=== PATIENT | male | born 1980 | race Caucasian/White ===

== ENCOUNTER 2018-08-20 12:53 | Emergency (ER) | payer MEDICAID, SELFPAY ==
[2018-08-20 13:00] VITALS: BP 185/104; PULSE 84; RESP 16; TEMP 36.6; O2SAT 97
--- NOTE | 2018-08-20 13:19 | DI.RAD_ITS ---
SYMPTOM/DIAGNOSIS: PAIN, CLICK WITH MOVEMENT, FELL PLAYING VOLLEYBALL LEFT KNEE: Three views were obtained. No bony abnormality is seen.
--- NOTE | 2018-08-20 14:06 | W.ED.GENAD ---
Discharge Plan Disposition Patient Disposition: HOME Condition: Good Discharge Details Chief Complaint: Orthopedic Clinical Impression: Acute pain of left knee, Kapoor cyst Primary Care Provider: Tomi Dao ED Provider: Win Gleason Home Meds and New Rx's Prescriptions: No Action ascorbic acid (vitamin C) [C-500] 500 MG tablet,chewable 500 mg PO DAILY RF: 0 methadone 5 MG/5 ML solution 100 mg PO DAILY RF: 0 hydroxyzine HCl 25 MG tablet 25 mg PO BID 30 Days Qty: 60 RF: 5 Nicotine [Nicoderm Cq] 1 EACH PATCH.TD24 14 mg Transdermal DAILY 30 Days Qty: 30 RF: 1 Nicotine [Nicoderm Cq] 1 EACH PATCH.TD24 7 mg Transdermal DAILY 30 Days Qty: 30 RF: 0 omega-3 fatty acids-fish oil 1 EACH capsule 1 ea PO DAILY RF: 0 sildenafil (antihypertensive) 20 MG tablet 2.5 tab PO qd prn 30 Days Qty: 60 RF: 5 disulfiram 250 mg tablet 250 mg PO DAILY Qty: 90 RF: 4 clonidine HCl 0.1 mg tablet 0.1 mg PO BID Qty: 180 RF: 4 lisdexamfetamine [Vyvanse] 50 mg capsule 50 mg PO DAILY Qty: 30 RF: 0 milk thistle 150 MG capsule RF: 0 cholecalciferol (vitamin D3) [Vitamin D3] 1,000 UNIT capsule RF: 0 multivitamin [Daily Multiple] 1 EACH tablet 1 ea PO DAILY RF: 0 Discharge Instructions Instructions: Knee Pain (ED), RICE Therapy (ED) Additional Instructions: Please continue using Tylenol, Motrin, ice, your knee brace. Avoid any significant stress or strain. Knee. Please follow-up with the orthopedic surgeon. The office will contact you. If you notice any worsening of your symptoms, or any new symptoms such as vomiting, diarrhea, fever, chills, shortness of breath, chest pain, numbness, weakness, or fainting , please return immediately to the emergency department for reevaluation. Please follow up with your primary care provider as soon as possible for reassessment and reevaluation. As always, it was a pleasure participating in your medical care today. Stand Alone Forms: Work Release Referrals: Tomi Dao [Primary Care Provider] - Medical Decision Making This is a pleasant 37-year-old male who presents for evaluation of left knee pain. It initially started 30 days ago when he was playing volleyball, then got worse again yesterday when he did a significant amount of bending and straining at his work. Physical exam demonstrates no significant abnormalities except for a mild click with flexion and extension. No ligamentous laxity. He does demonstrate mild tenderness over the area of where I feel may be is very small Kapoor's cyst. No other significant abnormalities. Normal neurovascular exam x-ray was performed and demonstrates no significant fracture abnormality. As the patient's symptoms were notably improved at home with NSAIDs, Blade wrap, knee brace, and ice I feel that he most likely has either a very mild meniscal injury or a small ligamentous tear causing the clicking and symptomatology. We will recommend continuation of this, as well as Orth O follow-up. He has no needs for crutches at this time and feels very stable on his feet. We discussed red flags for which to return the patient understands. I have extensively reviewed the treatment plan and discharge instructions with the patient. I have addressed all patient concerns at this time. The patient was made aware of what symptoms to monitor for that would warrant a return to the emergency department. Discussed the plan with the patient, they demonstrate verbal understanding and agreement with our assessment and plan at this time. HPI General Date/Time Provider Initiated Documentation: 08/20/18 13:19. HPI Narrative: This is a 37-year-old male with no significant past medical history who presents today for evaluation of left knee pain. The patient states that 30 days ago he was playing volleyball and came down hard on his left knee. With notable pain in the knee after this, continues to perform normal activities. Eventually better with Tylenol, ibuprofen, ice, and Blade wrap and left knee brace. 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 Since then he has had mild pain in his left knee. He has noticed some clicking. Symptoms are worse with movement, improved by rest, ice, elevation, and NSAIDs as well as his home brace. He denies any warmth, history of STDs, urethral discharge, IV or illicit drug use, or other significant trauma. He denies any other significant abnormalities. He denies any numbness, tingling or weakness. He has no other complaints at this time. Related Data Home Medications Medication Instructions Recorded Confirmed multivitamin [Daily Multiple] 1 ea PO DAILY 05/08/17 08/20/18 cholecalciferol (vitamin D3) 08/19/17 [Vitamin D3] milk thistle 08/19/17 08/19/17 ascorbic acid (vitamin C) [C-500] 500 mg PO DAILY tab.chew 09/05/17 08/20/18 methadone 100 mg PO DAILY ml 09/05/17 08/20/18 hydroxyzine HCl 25 mg PO BID 30 Days #60 tab-cap 10/03/17 08/20/18 omega-3 fatty acids-fish oil 1 ea PO DAILY 12/29/17 08/20/18 sildenafil (antihypertensive) 2.5 tab PO qd prn 30 Days #60 01/14/18 08/20/18 tab-cap clonidine HCl 0.1 mg tablet 0.1 mg PO BID #180 tab 07/08/18 08/20/18 disulfiram 250 mg tablet 250 mg PO DAILY #90 tab 07/08/18 08/20/18 lisdexamfetamine 50 mg capsule 50 mg PO DAILY #30 cap 07/31/18 08/20/18 Previous Rx's Medication Instructions Recorded hydroxyzine HCl 25 mg PO BID 30 Days #60 tab-cap 10/03/17 sildenafil (antihypertensive) 2.5 tab PO qd prn 30 Days #60 01/14/18 tab-cap clonidine HCl 0.1 mg tablet 0.1 mg PO BID #180 tab 07/08/18 disulfiram 250 mg tablet 250 mg PO DAILY #90 tab 07/08/18 lisdexamfetamine 50 mg capsule 50 mg PO DAILY #30 cap 07/31/18 Allergies Allergy/AdvReac Type Severity Reaction Status Date / Time No Known Allergies Allergy Unverified 08/20/18 13:03 General Stated Complaint: Orthopedic PACO: 4 Review of Systems Review of Systems All systems reviewed & are unremarkable except as noted in HPI and below PFSH Family History Mother Diabetes Father Diabetes Essential hypertension Brother No problems noted. Brother No problems noted. Grandfather No problems noted. Grandfather No problems noted. Grandmother No problems noted. Grandmother No problems noted. Daughter No problems noted. Social History Smoking/Tobacco Use Status: Current every day Exam Narrative Exam Narrative: 1.Const: Well-nourished, Well-developed, appearing stated age 2.Eyes: PERRL, no conjunctival injection, and symmetrical lids. 3.ENT: Atraumatic external nose and ears. Moist MM. Neck: Symmetric, trachea midline, No thyromegaly. 4.CVS: +S1/S2, No murmurs or gallops. Peripheral pulses 2+ and equal in all extremities. Brisk capillary refill in all extremities. 5.RESP: Unlabored respiratory effort. Clear to auscultation bilaterally. No wheezes rales or rhonchi 6.GI: Soft, Nontender/Nondistended, No hepatosplenomegaly. No guarding or rebound. 7.MSK: Normocephalic/Atraumatic, Extremities w/o deformity or significantTtp No cyanosis or clubbing. Patient demonstrates no ligamentous laxity for varus and valgus stressing, no significant worsening of pain for this. No decreased ACL strength, or PCL strength. No signs of lag. Kate's test demonstrated no worsening of his symptoms. Mild clicking with this noted with flexion extension at the knee. No other significant abnormalities. The patient walks well without a significant limp. No focal tenderness over the patella, tibial plateau, minimal swelling over the posterior popliteal area suggestive of a mild Kapoor's cyst. 8.Skin: Warm, Dry. No rashes or lesions. 9.Neuro: clinical trial manager II-XII grossly intact. Sensation grossly intact, no focal neurologic deficits. 10.Psych: (AAO) x3. Appropriate mood and affect Course Vital Signs Temperature 36.6 C 08/20/18 13:00 Pulse 84 08/20/18 13:00 Respiratory Rate 16 08/20/18 13:00 Blood Pressure 185/104 H 08/20/18 13:00 Pulse Oximetry 97 08/20/18 13:00 Temperature 36.6 C 08/20/18 13:00 Temperature Source Skin 08/20/18 13:00 Pulse 84 08/20/18 13:00 Respiratory Rate 16 08/20/18 13:00 Respiratory Effort 08/20/18 13:00 Blood Pressure 185/104 H 08/20/18 13:00 Blood Pressure Position Sitting 08/20/18 13:00 Pulse Oximetry 97 08/20/18 13:00 Oxygen Delivery Method Room Air 08/20/18 13:00 Oxygen Flow Rate 0 10/25/18 13:00 Pain Level 6 08/20/18 13:00
== END 2018-08-20 14:40 | disposition home or self-care (01) ==
PROVIDERS: Emergency Provider Student in an Organized Health Care Education/Training Program; PCP Family Medicine
DX: M25.562 Pain in left knee (principal); M71.22 Synovial cyst of popliteal space [Baker], left knee; X50.1XXA Overexertion from prolonged static or awkward postures, initial encounter; I10 Essential (primary) hypertension
CPT/HCPCS: 73562; 99283; 81003

== ENCOUNTER 2019-07-09 17:40 | Emergency (ER) | payer MEDICAID, SELFPAY ==
[2019-07-09 17:45] VITALS: BP 161/101; PULSE 71; RESP 16; TEMP 36.7; O2SAT 97
--- NOTE | 2019-07-09 18:21 | NUR.NOTE ---
Nursing Note: Pt states only taking methadone from [facility] daily for medication. No other meds taken by pt at this time 'for a while'.
[2019-07-09 18:22] LABS: Abs Immature Grans 0.01 k/cumm (0.0-0.09); Absolute Basophil Count 0.01 k/cumm (0.0-0.2); Absolute Eosinophil Count 0.14 k/cumm (0.0-0.7); Absolute Lymphocyte Count 3.57 k/cumm (1.2-3.4); Absolute Monocyte Count 0.37 k/cumm (0.11-0.7); Absolute Neutrophil Count 2.89 k/cumm (1.2-6.7); Basophils % 0.1; HCT 44.6 % (40.0-50.0); HGB 15.1 g/dL (13.5-17.5); Immature Grans % 0.1; Lymphocytes % 51.1; Mean Corp. HGB Concentration 33.9 g/dL (32.0-36.0); Mean Corpuscular Volume 97.4 fL (80-95); Mean Platelet Volume 9.3 fL (8.0-11.0); Monocytes % 5.3; Neutrophils % 41.4; Platelet Count 242 x1000/uL (130-400); RBC 4.58 m/cumm (4.50-6.00); RBC Distribution Width 12.7 % (11.8-14.1); White Blood Cell Count 6.99 k/cumm (4.4-10.8)
--- NOTE | 2019-07-09 18:24 | DI.RAD_ITS ---
SYMPTOM/DIAGNOSIS: SEIZURE, H/O ETOH PA AND LATERAL CHEST: The lungs are well expanded and free of infiltrate. There is no pleural effusion. The cardiovascular structures are intact. Note is made of a mild dextrorotoscoliosis. SUMMARY: No acute findings are demonstrated.
--- NOTE | 2019-07-09 18:31 | ED.GENADUL_ITS ---
Discharge Plan Disposition Patient Disposition: HOME Condition: Improving Discharge Details Chief Complaint: ETOHWithdr Clinical Impression: Alcohol withdrawal Primary Care Provider: Tomi Dao ED Provider: Luly Shafer Home Meds and New Rx's Prescriptions: New chlordiazepoxide HCl 25 mg capsule See Rx Instructions .ROUTE .COMPLEX PRN (Reason: alcohol withdrawal) Qty: 10 RF: 0 Continued hydroxyzine HCl 25 mg tablet 25 mg PO BID PRN (Reason: anxiety) Qty: 60 RF: 2 Vyvanse 50 mg capsule 50 mg PO DAILY MDD 50mg Qty: 30 RF: 0 Vyvanse 50 mg capsule 50 mg PO QAM MDD 50mg Qty: 30 RF: 0 ascorbic acid (vitamin C) [C-500] 500 MG tablet,chewable 500 mg PO DAILY RF: 0 methadone 5 MG/5 ML solution 100 mg PO DAILY RF: 0 omega-3 fatty acids-fish oil 1 EACH capsule 1 ea PO DAILY RF: 0 sildenafil (antihypertensive) 20 MG tablet 2.5 tab PO qd prn 30 Days Qty: 60 RF: 5 disulfiram 250 mg tablet 250 mg PO DAILY Qty: 90 RF: 4 clonidine HCl 0.1 mg tablet 0.1 mg PO BID Qty: 180 RF: 4 nicotine [Nicoderm CQ] 14 mg/24 hr patch 24 hour 1 patch TD Q24H Qty: 21 RF: 1 nicotine [Nicoderm CQ] 7 mg/24 hr patch 24 hour 1 patch TD Q24H Qty: 14 RF: 0 cholecalciferol (vitamin D3) [Vitamin D3] 1,000 UNIT capsule RF: 0 multivitamin [Daily Multiple] 1 EACH tablet 1 ea PO DAILY RF: 0 No Action Vyvanse 50 mg capsule 50 mg PO QAM MDD 50mg Qty: 30 RF: 0 Discharge Instructions Instructions: Alcohol Withdrawal (ED) Additional Instructions: Take the Librium as needed and directed for alcohol withdrawal symptoms. Refrain from drinking any alcohol while taking the Librium. Follow-up with Patricia on Friday regarding placement in the detox program. Return to the emergency department if you develop any worsening or new concerning symptoms. Discharge Data Discharge Date/Time-TO BE ENTERED AT DEPARTURE: 07/09/19 20:23 Discharge Physician: Luly Shafer Medical Decision Making 38yo M w/ a h/o chronic daily alcohol abuse who presents to the ED for medical clearance for alcohol detox at [facility]. CIWA 9 initially per nurse. Blood pressure 165/101, remainder vitals within normal limits. Patient appeared mildly shaky and anxious but otherwise no acute complaints. Dose of Ativan ordered. Screening labs ordered on arrival and unremarkable. EKG notes a rate of 63, sinus with T wave inversion in lead III but no acute ST wave ischemic changes. Patient complaining of significant anxiety and was given a dose of Ativan. His CIWA was 29. He was requesting to go home. Patient was given another dose of Ativan and observed and his CIWA was 1. He has a normal heart rate and blood pressure. He appears relaxed and comfortable. His dad will be driving him home. He states he was mainly here for medical clearance for [facility]. Patient does not appear in acute alcohol withdrawal at this time and suspect his anxiety was driving most of his symptoms earlier. He was given a printout of his lab work. We will send home with a prescription for Librium. He is advised to not drink alcohol while taking this. He is advised to return here with any worsening or new concerning symptoms. Medical Records Medical records reviewed: Yes I reviewed the patient's medical records. Lab Data Lab results reviewed: Yes I reviewed the patient's lab results. Labs: Laboratory Tests Range/Units 07/09/19 07/09/19 07/09/19 18:16 18:16 19:03 WBC (4.4-10.8) k/cumm 6.99 RBC (4.50-6.00) m/cumm 4.58 Hgb (13.5-17.5) g/dL 15.1 Hct (40.0-50.0) % 44.6 MCV (80-95) fL 97.4 H MCH (27.0-33.0) pg 33.0 MCHC (32.0-36.0) g/dL 33.9 RDW (11.8-14.1) % 12.7 Plt Count (130-400) x1000/uL 242 MPV (8.0-11.0) fL 9.3 Immature Gran % 0.1 Neutrophils % 41.4 Lymphocytes % 51.1 Monocytes % 5.3 Eosinophils % 2.0 Basophils % 0.1 Absolute Neutrophils (1.2-6.7) k/cumm 2.89 Absolute Lymphocytes (1.2-3.4) k/cumm 3.57 H Absolute Monocytes (0.11-0.7) k/cumm 0.37 Absolute Eosinophils (0.0-0.7) k/cumm 0.14 Absolute Basophils (0.0-0.2) k/cumm 0.01 Sodium (136-145) mmol/L 141 Potassium (3.5-5.1) mmol/L 3.9 Chloride (98-107) mmol/L 103 Carbon Dioxide (21.0-32.0) mmol/L 28.9 Anion Gap (3-11) mmol/L 9.1 BUN (7-18) mg/dL 19 H Creatinine (0.70-1.30) mg/dL 0.95 Estimated GFR/1.73 m2 (mL/min/1.73m2) >= 60.00 Glucose (70-100) mg/dL 91 Calcium (8.5-10.1) mg/dL 8.9 Magnesium (1.8-2.4) mg/dL 2.0 Total Bilirubin (0.2-1.0) mg/dL 0.3 AST (15-37) U/L 41 H ALT (16-63) U/L 60 Alkaline Phosphatase (46-116) U/L 90 Troponin I (0.00-0.06) ng/mL < 0.05 Total Protein (6.4-8.2) g/dL 7.8 Albumin (3.4-5.0) g/dL 4.2 Urine Color (Yellow) Straw Urine Clarity (Clear) Clear Urine pH (5-8) 6.0 Ur Specific Cedar (1.005-1.025) 1.010 Urine Protein (Negative) mg/dL Negative Urine Ketones (Negative) mg/dL Negative Urine Blood (Negative) Trace-intact H Urine Nitrite (Negative) Negative Urine Bilirubin (Negative) Negative Urine Urobilinogen (Up TO 0.2) EU/dL 0.2 Ur Leukocyte Esterase (Negative) Negative Urine RBC (0-2) 0-2 Urine WBC (0-5) HPF Negative Ur Epithelial Cells (Negative) HPF Negative Urine Crystals (Negative) HPF Negative Urine Bacteria (Negative) HPF Negative Urine Casts (Negative) LPF Negative Urine Mucus (Negative) Negative Ur Culture Indicated? No Urine Glucose (Negative) mg/dL Negative Urine Opiates Screen (Negative) Urine Methadone Screen (Negative) Ur Barbiturates Screen (Negative) Ur Tricyclics Screen (Negative) Ur Amphetamines Screen (Negative) U Benzodiazepines Scrn (Negative) Urine Cocaine Screen (Negative) Ur THC Screen (Negative) Range/Units 07/09/19 19:03 WBC (4.4-10.8) k/cumm RBC (4.50-6.00) m/cumm Hgb (13.5-17.5) g/dL Hct (40.0-50.0) % MCV (80-95) fL MCH (27.0-33.0) pg MCHC (32.0-36.0) g/dL RDW (11.8-14.1) % Plt Count (130-400) x1000/uL MPV (8.0-11.0) fL Immature Gran % Neutrophils % Lymphocytes % Monocytes % Eosinophils % Basophils % Absolute Neutrophils (1.2-6.7) k/cumm Absolute Lymphocytes (1.2-3.4) k/cumm Absolute Monocytes (0.11-0.7) k/cumm Absolute Eosinophils (0.0-0.7) k/cumm Absolute Basophils (0.0-0.2) k/cumm Sodium (136-145) mmol/L Potassium (3.5-5.1) mmol/L Chloride (98-107) mmol/L Carbon Dioxide (21.0-32.0) mmol/L Anion Gap (3-11) mmol/L BUN (7-18) mg/dL Creatinine (0.70-1.30) mg/dL Estimated GFR/1.73 m2 (mL/min/1.73m2) Glucose (70-100) mg/dL Calcium (8.5-10.1) mg/dL Magnesium (1.8-2.4) mg/dL Total Bilirubin (0.2-1.0) mg/dL AST (15-37) U/L ALT (16-63) U/L Alkaline Phosphatase (46-116) U/L Troponin I (0.00-0.06) ng/mL Total Protein (6.4-8.2) g/dL Albumin (3.4-5.0) g/dL Urine Color (Yellow) Urine Clarity (Clear) Urine pH (5-8) Ur Specific Cedar (1.005-1.025) Urine Protein (Negative) mg/dL Urine Ketones (Negative) mg/dL Urine Blood (Negative) Urine Nitrite (Negative) Urine Bilirubin (Negative) Urine Urobilinogen (Up TO 0.2) EU/dL Ur Leukocyte Esterase (Negative) Urine RBC (0-2) Urine WBC (0-5) HPF Ur Epithelial Cells (Negative) HPF Urine Crystals (Negative) HPF Urine Bacteria (Negative) HPF Urine Casts (Negative) LPF Urine Mucus (Negative) Ur Culture Indicated? Urine Glucose (Negative) mg/dL Urine Opiates Screen (Negative) Negative Urine Methadone Screen (Negative) Positive Ur Barbiturates Screen (Negative) Negative Ur Tricyclics Screen (Negative) Negative Ur Amphetamines Screen (Negative) Negative U Benzodiazepines Scrn (Negative) Negative Urine Cocaine Screen (Negative) Negative Ur THC Screen (Negative) Negative HPI General Mode of arrival: ambulatory . Date/Time Provider Initiated Documentation: 07/09/19 17:58 . Limitations to Documentation: no limitations . Information obtained by: patient . HPI Narrative: Patient is a 38yo M w/ a h/o chronic daily alcohol abuse who presents to the ED for medical clearance for alcohol detox at [facility]. Patient states he plans on starting detox at [facility] on Friday and is here for medical clearance. He states he detoxed himself at home last week and believes that he had one seizure which lasted approximately 45 seconds after he had not had a drink for 2-3 days. Patient states his last drink was this morning and that he drank 4 beers. He states he drinks approximately 1/5 of liquor daily. He states he has been tapering down the amount of alcohol he has been drinking for the past few days. He denies any recent seizure over the past few days. He denies headache, blurry vision, chest pain, shortness of breath, abdominal pain, nausea, vomiting, hallucinations. Related Data Home Medications Medication Instructions Recorded Confirmed multivitamin [Daily Multiple] 1 ea PO DAILY 05/08/17 03/09/19 cholecalciferol (vitamin D3) 08/19/17 03/09/19 [Vitamin D3] ascorbic acid (vitamin C) [C-500] 500 mg PO DAILY tab.chew 09/05/17 03/09/19 methadone 100 mg PO DAILY ml 09/05/17 07/09/19 omega-3 fatty acids-fish oil 1 ea PO DAILY 12/29/17 03/09/19 sildenafil (antihypertensive) 2.5 tab PO qd prn 30 Days #60 01/14/18 03/09/19 tab-cap disulfiram 250 mg tablet 250 mg PO DAILY #90 tab 07/08/18 03/09/19 clonidine HCl 0.1 mg tablet 0.1 mg PO BID #180 tab 01/13/19 03/09/19 hydroxyzine HCl 25 mg tablet 25 mg PO BID PRN #60 tab-cap 03/09/19 03/09/19 lisdexamfetamine 50 mg capsule 50 mg PO DAILY #30 cap MDD 50mg 03/09/19 03/09/19 lisdexamfetamine 50 mg capsule 50 mg PO QAM #30 cap MDD 50mg 03/09/19 03/09/19 nicotine 14 mg/24 hr daily 1 patch TD Q24H #21 each 06/04/19 transdermal patch nicotine 7 mg/24 hr daily 1 patch TD Q24H #14 each 06/04/19 transdermal patch chlordiazepoxide HCl See Rx Instructions .ROUTE 07/09/19 .COMPLEX PRN #10 cap lisdexamfetamine 50 mg capsule 50 mg PO QAM #30 cap MDD 50mg 07/14/19 Previous Rx's Medication Instructions Recorded sildenafil (antihypertensive) 2.5 tab PO qd prn 30 Days #60 01/14/18 tab-cap disulfiram 250 mg tablet 250 mg PO DAILY #90 tab 07/08/18 clonidine HCl 0.1 mg tablet 0.1 mg PO BID #180 tab 01/13/19 hydroxyzine HCl 25 mg tablet 25 mg PO BID PRN #60 tab-cap 03/09/19 lisdexamfetamine 50 mg capsule 50 mg PO DAILY #30 cap MDD 50mg 03/09/19 lisdexamfetamine 50 mg capsule 50 mg PO QAM #30 cap MDD 50mg 03/09/19 nicotine 14 mg/24 hr daily 1 patch TD Q24H #21 each 06/04/19 transdermal patch nicotine 7 mg/24 hr daily 1 patch TD Q24H #14 each 06/04/19 transdermal patch chlordiazepoxide HCl See Rx Instructions .ROUTE 07/09/19 .COMPLEX PRN #10 cap lisdexamfetamine 50 mg capsule 50 mg PO QAM #30 cap MDD 50mg 07/14/19 Allergies Allergy/AdvReac Type Severity Reaction Status Date / Time No Known Allergies Allergy Verified 07/09/19 17:51 General Stated Complaint: ETOHWithdr PACO: 2 Review of Systems Review of Systems ROS Unobtainable: All systems reviewed & are unremarkable except as noted in HPI and below Constitutional Constitutional: Reports as per HPI, Denies chills and Denies fever(s) Eyes Eyes: Denies blurry vision ENT Ears, Nose, Mouth, and Throat: Denies dizziness, Denies sore throat and Denies throat swelling Cardiovascular Cardiovascular: Denies chest pain and Denies dyspnea Respiratory Respiratory: Denies cough and Denies dyspnea Gastrointestinal Gastrointestinal: Denies abdominal pain, Denies diarrhea and Denies vomiting Genitourinary Genitourinary: Denies hematuria and Denies dysuria Musculoskeletal Musculoskeletal: Denies back pain and Denies numbness Integumentary/Breasts Skin/Breast: Denies lesions and Denies rash Neurologic Neurologic: Denies dizziness, Denies focal weakness and Denies numbness Allergic/Immunologic Allergic/Immunologic: Denies throat swelling [facility] Medical History ADD (attention deficit disorder) (Inactive) Anxiety (Inactive 09/05/17) Hypertension (Inactive) Methadone dependence (Inactive 04/01/18) Family History Mother Diabetes Father Diabetes Essential hypertension Brother No problems noted. Brother No problems noted. Grandfather No problems noted. Grandfather No problems noted. Grandmother No problems noted. Grandmother No problems noted. Daughter No problems noted. Social History Smoking/Tobacco Use Status: Current every day Tobacco Type: cigarettes Alcohol Intake: current Alcohol Intake frequency: 3 or more drinks per day Alcohol type: hard liquor Drug use: Current Sobriety Substance use type: does not use Details: States drinks 1-2 pints vodka daily. Do you feel safe at home: Yes Do you feel safe in your relationship?: Yes Exam Const General: cooperative, healthy appearing and anxious (mild) [facility] Head: normal to inspection Face and sinus: normal facial exam Eyes General: appearance normal, both eyes and all related structures Pupils: PERRL EOM: EOM intact bilaterally Neck Neck: normal visual inspection and No submandibular swelling Lymphatic: no lymphadenopathy noted Chest Chest: normal inspection of the chest and no tenderness Resp Effort & Inspection: normal respiratory effort and able to speak in complete sentences Auscultation: clear to auscultation bilaterally Cardio Rate: regular rate Rhythm: regular rhythm GI Inspection: normal to inspection Palpation: soft, not firm, not rigid and nontender Auscultation: normal bowel sounds Skin General skin exam: no rashes or lesions noted Neuro General: alert, awake and oriented x3 Cognition: normal cognition Speech: speech normal Motor: muscle tone normal throughout Sensory Exam: no sensory deficits noted Extrem General: normal to inspection, full ROM, normal capillary refill, no calf tenderness bilaterally and no edema Psych Appearance: grossly normal Mental Status: mental status grossly normal Speech and Movement: speech and movement normal Affect: anxious affect Course Vital Signs Vital signs: Vital Signs Temperature 98.1 F 07/09/19 17:45 Pulse 71 07/09/19 17:45 Respiratory Rate 16 07/09/19 17:45 Blood Pressure 161/101 H 07/09/19 17:45 Pulse Oximetry 97 07/09/19 17:45 Temperature 98.1 F 07/09/19 17:45 Temperature Source Temporal Artery Scan 07/09/19 17:45 Pulse 71 07/09/19 17:45 Respiratory Rate 16 07/09/19 17:45 Respiratory Effort Non-Labored 07/09/19 18:16 Respiratory Pattern Normal 07/09/19 18:16 Blood Pressure 161/101 H 07/09/19 17:45 Blood Pressure Position Sitting 07/09/19 17:45 Pulse Oximetry 97 07/09/19 17:45 Oxygen Delivery Method Room Air 07/09/19 17:45 Oxygen Flow Rate 0 07/09/19 17:45 Pain Level 0 07/09/19 17:45 Lab/Test Results Lab/Test Results: Laboratory Tests Range/Units 07/09/19 18:16 WBC (4.4-10.8) k/cumm 6.99 RBC (4.50-6.00) m/cumm 4.58 Hgb (13.5-17.5) g/dL 15.1 Hct (40.0-50.0) % 44.6 MCV (80-95) fL 97.4 H MCH (27.0-33.0) pg 33.0 MCHC (32.0-36.0) g/dL 33.9 RDW (11.8-14.1) % 12.7 Plt Count (130-400) x1000/uL 242 MPV (8.0-11.0) fL 9.3 Immature Gran % 0.1 Neutrophils % 41.4 Lymphocytes % 51.1 Monocytes % 5.3 Eosinophils % 2.0 Basophils % 0.1 Absolute Neutrophils (1.2-6.7) k/cumm 2.89 Absolute Lymphocytes (1.2-3.4) k/cumm 3.57 H Absolute Monocytes (0.11-0.7) k/cumm 0.37 Absolute Eosinophils (0.0-0.7) k/cumm 0.14 Absolute Basophils (0.0-0.2) k/cumm 0.01
[2019-07-09 18:36] LABS: ALT 60 U/L (16-63); AST 41 U/L (15-37); Albumin 4.2 g/dL (3.4-5.0); Alkaline Phosphatase 90 U/L (46-116); Anion Gap 9.1 mmol/L (3-11); BUN 19 mg/dL (7-18); Bilirubin, Total 0.3 mg/dL (0.2-1.0); CO2 28.9 mmol/L (21.0-32.0); CREATININE 0.95 mg/dL (0.70-1.30); Calcium 8.9 mg/dL (8.5-10.1); Chloride 103 mmol/L (98-107); Glucose 91 mg/dL (70-100); Potassium 3.9 mmol/L (3.5-5.1); Sodium 141 mmol/L (136-145); Total Protein 7.8 g/dL (6.4-8.2)
--- NOTE | 2019-07-09 18:38 | NUR.NOTE ---
pt to xray Nursing Note:
[2019-07-09 18:39] LABS: Troponin I < 0.05 ng/mL (0.00-0.06)
[2019-07-09] MEDS: LORazepam 2 MG/ML VIAL ×2 (18:57→20:06)
--- NOTE | 2019-07-09 18:57 | DI.VRAD_ITS ---
EXAM: XR Chest, 2 Views EXAM DATE/TIME: 07/09/2019 6:26 PM CLINICAL HISTORY: 38 years old, male; Condition or disease; Other: Seizure; Patient HX: [id number], h/o ETOH; Additional info: R/O acute disease TECHNIQUE: Imaging protocol: XR of the chest Views: 2 views. COMPARISON: No relevant prior studies available. FINDINGS: Lungs: Unremarkable. No consolidation. Pleural space: Unremarkable. No pleural effusion. No pneumothorax. Heart/Mediastinum: Unremarkable. No cardiomegaly. Bones/joints: Mild scoliosis, thoracolumbar spine. IMPRESSION: No acute findings. Lungs are clear. Dictated and Authenticated by: Fadi Villagomez MD. Ordering:STEVEN Mauricio MD
[2019-07-09 19:08] LABS: Bilirubin Negative (Negative); Blood Trace-intact (Negative); Clarity Clear (Clear); Glucose Negative (Negative); Ketones Negative (Negative); Leukocyte Esterase Negative (Negative); Nitrite Negative (Negative); Urobilinogen 0.2 EU/dL (Up TO 0.2)
[2019-07-09 19:19] LABS: Bacteria Negative HPF (Negative); C & S Indicated? No; Casts Negative LPF (Negative); Crystals Negative HPF (Negative); Epithelial Cells Negative HPF (Negative); Mucus Negative (Negative); RBC 0-2 (0-2); WBC Negative HPF (0-5)
[2019-07-09 19:21] LABS: *AMPHETAMINES SCREEN URINE Negative (Negative); *BARBITURATES SCREEN URINE Negative (Negative); *BENZODIAZEPINES SCREEN URINE Negative (Negative); Cannabinoids THC Negative (Negative); Cocaine Screen,Urine Negative (Negative); METHADONE URINE SCREEN POSITIVE (Negative); OPIATES URINE SCREEN Negative (Negative)
[2019-07-09 19:28] LABS: Tricyclic Antidepressants Negative (Negative)
[2019-07-09 20:19] VITALS: BP 142/86; PULSE 80; RESP 16; O2SAT 95
--- NOTE | 2019-07-09 20:20 | NUR.NOTE ---
Nursing Note: Pt alert/oriented/ambulatory. discharged to home. Instructions reviewed. understanding verbalized. medication education discussed. VSS IV REMOVED
[2019-07-09] MEDS: LORazepam 1 MG TAB (20:21)
== END 2019-07-09 20:23 | disposition home or self-care (01) ==
PROVIDERS: Emergency Provider Physician Assistant; PCP Family Medicine
DX: F10.230 Alcohol dependence with withdrawal, uncomplicated (principal); F41.9 Anxiety disorder, unspecified; F11.20 Opioid dependence, uncomplicated; I10 Essential (primary) hypertension
CPT/HCPCS: 36415; 80053; 80307; 93005; 96374; 99285; 71046; 81003; 81015; 83735; 84484; 85025; 93010; J2060

== ENCOUNTER 2019-08-12 15:05 | Emergency (ER) | payer MEDICAID, SELFPAY ==
[2019-08-12 15:12] VITALS: BP 146/102; PULSE 77; RESP 16; TEMP 36.7; O2SAT 93
--- NOTE | 2019-08-12 15:28 | ED.GENADUL_ITS ---
Discharge Plan Disposition Patient Disposition: HOME Condition: Stable Discharge Details Chief Complaint: ETOHWithdr Clinical Impression: Alcohol abuse Primary Care Provider: Tomi Dao ED Provider: Torrey Tse Kelly Meds and New Rx's Prescriptions: Continued hydroxyzine HCl 25 mg tablet 25 mg PO BID PRN (Reason: anxiety) Qty: 60 RF: 2 Vyvanse 50 mg capsule 50 mg PO QAM MDD 50mg Qty: 30 RF: 0 ascorbic acid (vitamin C) [C-500] 500 MG tablet,chewable 500 mg PO DAILY RF: 0 methadone 5 MG/5 ML solution 100 mg PO DAILY RF: 0 omega-3 fatty acids-fish oil 1 EACH capsule 1 ea PO DAILY RF: 0 sildenafil (antihypertensive) 20 MG tablet 2.5 tab PO qd prn 30 Days Qty: 60 RF: 5 disulfiram 250 mg tablet 250 mg PO DAILY Qty: 90 RF: 4 clonidine HCl 0.1 mg tablet 0.1 mg PO BID Qty: 180 RF: 4 nicotine [Nicoderm CQ] 14 mg/24 hr patch 24 hour 1 patch TD Q24H Qty: 21 RF: 1 nicotine [Nicoderm CQ] 7 mg/24 hr patch 24 hour 1 patch TD Q24H Qty: 14 RF: 0 Vyvanse 50 mg capsule 50 mg PO QAM MDD 50mg Qty: 30 RF: 0 cholecalciferol (vitamin D3) [Vitamin D3] 1,000 UNIT capsule RF: 0 chlordiazepoxide HCl 25 mg capsule See Rx Instructions .ROUTE .COMPLEX PRN (Reason: alcohol withdrawal) Qty: 10 RF: 0 multivitamin [Daily Multiple] 1 EACH tablet 1 ea PO DAILY RF: 0 Discharge Instructions Instructions: Alcohol Dependence (ED) Additional Instructions: continue to call detox centers for help with your alcoholism if you develop high fevers, difficulty breathing, persistent vomit or feel more ill return to the emergency department for reevaluation Medical Decision Making 38 yo male with hx of alcohol abuse comes in with request for medical clearance to go to [facility]. He was sen here a month ago and did end up going to [facility] for detox and was off alcohol for 2 weeks but a in the family caused him to relapse and he wants to go back to [facility]. He feels anxious otherwise denies fevers, headaches, vomit. He also notes that he twisted his left knee a day ago at the gym, no direct trauma. He is in no distress on exam with clear speech, no tremors and no abdominal tenderness speaking in full sentences. His left knee has full rom and is bering weight without probles and has mild medial joint line pain without laxity. given lack of direct trauma, full rom, and bearing weight doubt fx and do not feel xray indicated and given no laxity and no swelling doubt significant ligamentous tear. Advised RICE and f/u with pcp or ortho if still in pain in 2 weeks. Will order screening labs and give dose of librium as he states this helped a month ago pt's labs showetoh of 190, otherwise no acute findings, remains stable with stable exam. He is medically cleared to go to any detox center of his choosing. Will dc with librium Differential Diagnosis Differential Diagnosis: alcohol abuse, alcoholishm, detox Lab Data Lab results reviewed: Yes I reviewed the patient's lab results. HPI General Mode of arrival: ambulatory . Date/Time Provider Initiated Documentation: 08/12/19 15:10 . Limitations to Documentation: no limitations . Information obtained by: patient . History of Present Illness 38 year old M presents to the emergency department with the chief complaint of wants to go to detox center, and it has been constant. No relieving factors improve symptom(s), No exacerbating factors reported . Patient did receive the following treatments prior to arrival, none Related Data Home Medications Medication Instructions Recorded Confirmed multivitamin [Daily Multiple] 1 ea PO DAILY 05/08/17 08/12/19 cholecalciferol (vitamin D3) 08/19/17 03/09/19 [Vitamin D3] ascorbic acid (vitamin C) [C-500] 500 mg PO DAILY tab.chew 09/05/17 08/12/19 methadone 100 mg PO DAILY ml 09/05/17 08/12/19 omega-3 fatty acids-fish oil 1 ea PO DAILY 12/29/17 08/12/19 sildenafil (antihypertensive) 2.5 tab PO qd prn 30 Days #60 01/14/18 08/12/19 tab-cap disulfiram 250 mg tablet 250 mg PO DAILY #90 tab 07/08/18 08/12/19 clonidine HCl 0.1 mg tablet 0.1 mg PO BID #180 tab 01/13/19 08/12/19 hydroxyzine HCl 25 mg tablet 25 mg PO BID PRN #60 tab-cap 03/09/19 08/12/19 lisdexamfetamine 50 mg capsule 50 mg PO QAM #30 cap MDD 50mg 03/09/19 08/12/19 nicotine 14 mg/24 hr daily 1 patch TD Q24H #21 each 06/04/19 08/12/19 transdermal patch nicotine 7 mg/24 hr daily 1 patch TD Q24H #14 each 06/04/19 08/12/19 transdermal patch lisdexamfetamine 50 mg capsule 50 mg PO QAM #30 cap MDD 50mg 07/14/19 08/12/19 chlordiazepoxide HCl See Rx Instructions .ROUTE 08/12/19 .COMPLEX PRN #10 cap Previous Rx's Medication Instructions Recorded sildenafil (antihypertensive) 2.5 tab PO qd prn 30 Days #60 01/14/18 tab-cap disulfiram 250 mg tablet 250 mg PO DAILY #90 tab 07/08/18 clonidine HCl 0.1 mg tablet 0.1 mg PO BID #180 tab 01/13/19 hydroxyzine HCl 25 mg tablet 25 mg PO BID PRN #60 tab-cap 03/09/19 lisdexamfetamine 50 mg capsule 50 mg PO QAM #30 cap MDD 50mg 03/09/19 nicotine 14 mg/24 hr daily 1 patch TD Q24H #21 each 06/04/19 transdermal patch nicotine 7 mg/24 hr daily 1 patch TD Q24H #14 each 06/04/19 transdermal patch lisdexamfetamine 50 mg capsule 50 mg PO QAM #30 cap MDD 50mg 07/14/19 chlordiazepoxide HCl See Rx Instructions .ROUTE 08/12/19 .COMPLEX PRN #10 cap Allergies Allergy/AdvReac Type Severity Reaction Status Date / Time No Known Allergies Allergy Verified 08/12/19 15:15 General Stated Complaint: ETOHWithdr PACO: 3 Review of Systems Review of Systems ROS Unobtainable: All systems reviewed & are unremarkable except as noted in HPI and below Constitutional Constitutional: Denies chills, Denies fever(s) and Denies weakness Cardiovascular Cardiovascular: Denies chest pain and Denies dyspnea Respiratory Respiratory: Denies dyspnea Gastrointestinal Gastrointestinal: Denies abdominal pain, Denies nausea and Denies vomiting Musculoskeletal Musculoskeletal: Denies joint swelling Neurologic Neurologic: Denies weakness PFSH Social History Smoking/Tobacco Use Status: Current every day Tobacco Type: cigarettes Alcohol Intake: current Alcohol Intake frequency: 3 or more drinks per day Alcohol type: hard liquor Drug use: Occasionally Substance use type: does not use Details: States drinks 1-2 pints vodka daily. Do you feel safe at home: Yes Do you feel safe in your relationship?: Yes Exam Const General: no acute distress Orientation: alert HENMT Head: normal to inspection Ears: external ears normal General nose exam: external nose normal Mouth: moist mucous membranes Eyes General: appearance normal, both eyes and all related structures Neck Neck: normal visual inspection Resp Effort & Inspection: normal respiratory effort and able to speak in complete sentences Cardio Rate: regular rate Skin General skin exam: no rashes or lesions noted Neuro General: alert and oriented x3 Extrem General: normal to inspection Psych Mental Status: mental status grossly normal Course Vital Signs Vital signs: Vital Signs Temperature 36.7 C 08/12/19 15:12 Pulse 77 08/12/19 15:12 Respiratory Rate 16 08/12/19 15:12 Blood Pressure 146/102 H 08/12/19 15:12 Pulse Oximetry 93 L 08/12/19 15:12 Temperature 36.7 C 08/12/19 15:12 Temperature Source Skin 08/12/19 15:12 Pulse 77 08/12/19 15:12 Respiratory Rate 16 08/12/19 15:12 Respiratory Effort Non-Labored 08/12/19 15:12 Blood Pressure 146/102 H 08/12/19 15:12 Blood Pressure Position Sitting 08/12/19 15:12 Pulse Oximetry 93 L 08/12/19 15:12 Oxygen Delivery Method Room Air 08/12/19 15:12 Oxygen Flow Rate 0 08/12/19 15:12 Pain Level 4 08/12/19 15:12
[2019-08-12 15:55] LABS: Abs Immature Grans 0.01 k/cumm (0.0-0.09); Absolute Basophil Count 0.02 k/cumm (0.0-0.2); Absolute Eosinophil Count 0.18 k/cumm (0.0-0.7); Absolute Lymphocyte Count 2.77 k/cumm (1.2-3.4); Absolute Monocyte Count 0.72 k/cumm (0.11-0.7); Absolute Neutrophil Count 4.73 k/cumm (1.2-6.7); Basophils % 0.2; Eosinophils % 2.1; HGB 15.7 g/dL (13.5-17.5); Immature Grans % 0.1; Lymphocytes % 32.9; Mean Corp. HGB Concentration 34.1 g/dL (32.0-36.0); Mean Corpuscular Hemoglobin 33.7 pg (27.0-33.0); Mean Corpuscular Volume 98.7 fL (80-95); Mean Platelet Volume 9.2 fL (8.0-11.0); Monocytes % 8.5; Neutrophils % 56.2; Platelet Count 214 x1000/uL (130-400); RBC 4.66 m/cumm (4.50-6.00); RBC Distribution Width 12.7 % (11.8-14.1); White Blood Cell Count 8.43 k/cumm (4.4-10.8)
[2019-08-12] MEDS: chlordiazePOXIDE 25 MG CAP 50 MG PO (15:55)
[2019-08-12 16:02] LABS: ETHANOL BLOOD 193.4 mg/dL (<3)
[2019-08-12 16:06] LABS: *AMPHETAMINES SCREEN URINE Negative (Negative); *BARBITURATES SCREEN URINE Negative (Negative); *BENZODIAZEPINES SCREEN URINE Negative (Negative); Cannabinoids THC Negative (Negative); Cocaine Screen,Urine Negative (Negative); METHADONE URINE SCREEN POSITIVE (Negative); OPIATES URINE SCREEN Negative (Negative)
[2019-08-12 16:11] LABS: Tricyclic Antidepressants Negative (Negative)
[2019-08-12 16:14] LABS: ALT 38 U/L (16-63); AST 38 U/L (15-37); Albumin 4.2 g/dL (3.4-5.0); Alkaline Phosphatase 92 U/L (46-116); BUN 22 mg/dL (7-18); Bilirubin, Total 0.4 mg/dL (0.2-1.0); CREATININE 0.95 mg/dL (0.70-1.30); Calcium 9.1 mg/dL (8.5-10.1); Chloride 105 mmol/L (98-107); Glucose 92 mg/dL (70-100); Magnesium 2.2 mg/dL (1.8-2.4); Sodium 142 mmol/L (136-145); TSH (W/Ref FT4) 2.12 uIU/mL (0.36-3.74); Total Protein 7.9 g/dL (6.4-8.2)
[2019-08-12 17:44] VITALS: BP 145/100; PULSE 73; RESP 20; TEMP 36.4; O2SAT 94
== END 2019-08-12 17:44 | disposition home or self-care (01) ==
PROVIDERS: Emergency Provider Emergency Medicine; PCP Family Medicine
DX: F10.10 Alcohol abuse, uncomplicated (principal); F41.9 Anxiety disorder, unspecified
CPT/HCPCS: 36415; 80053; 80307; 99284; 80320; 83735; 84443; 85025

== ENCOUNTER 2019-08-19 19:59 | Emergency (ER) | payer MEDICAID, SELFPAY ==
[2019-08-19] VITALS (15 sets, daily range): BP systolic 161–180; BP diastolic 106–131; PULSE 81–133; RESP 12–23; TEMP 36.3
--- NOTE | 2019-08-19 20:04 | ED.GENADUL_ITS ---
Discharge Plan Disposition Patient Disposition: HOME Condition: Good Discharge Details Chief Complaint: ETOHWithdr Clinical Impression: Alcohol dependence with uncomplicated withdrawal Primary Care Provider: Tomi Dao ED Provider: Jamie Hailes and New Rx's Prescriptions: New lorazepam 2 mg tablet 2 mg PO TID Qty: 10 RF: 0 Continued Vyvanse 50 mg capsule 50 mg PO QAM MDD 50mg Qty: 30 RF: 0 methadone 5 MG/5 ML solution 100 mg PO DAILY RF: 0 sildenafil (antihypertensive) 20 MG tablet 2.5 tab PO qd prn 30 Days Qty: 60 RF: 5 clonidine HCl 0.1 mg Tablet 0.1 mg PO BID RF: 0 Discharge Instructions Additional Instructions: Abstain from alcohol. Ativan as directed. Rest and take it easy over the weekend. Drink plenty of non-alcoholic and non-caffeinated beverages to stay hy drated. Present to the [facility] Friday for rehab. Return to ED for worsening withdrawal symptoms, seizures, feeling unsafe, other concerns or problems. Referrals: Tomi Dao [Primary Care Provider] - Medical Decision Making Patient is clearly detoxing and withdrawing from alcohol as well as having significant anxiety. I believe his intentions. He understands the mistake he made yesterday. We will go ahead and place IV. We will give fluids, Ativan and reevaluate. Repeat laboratory studies sent. They were okay last week. 21:20 - Patient's labs are fine. His heart rate is down but still tachy. BP still up. Patient feels much better. Will finish fluids, give evening clonidine and another dose of Ativan. 22:10 - Patient feels a lot better. Wants to go home to sleep. Heart rate below 100. BP still up but better. Will discharge with Ativan prescription for the weekend. Goes to [facility] Friday morning. Return to ED for seizure, increase withdrawal symptoms, other concerns/problems. Medical Records Medical records reviewed: Yes I reviewed the patient's medical records. Lab Data Lab results reviewed: Yes I reviewed the patient's lab results. HPI General Mode of arrival: ambulatory . Date/Time Provider Initiated Documentation: 08/19/19 20:02 . Limitations to Documentation: no limitations . Information obtained by: patient, RN notes reviewed and old records reviewed . HPI Narrative: Patient presents to ED for alcohol withdrawal. Patient was seen here last week for same. Plan was to go to [facility] after clearance. He was discharged with Ativan. He reports that he is not able to get into [facility] until Friday. At that point, he will be going to rehab for 30 days as opposed to just detox. He reports that while he was taking the Ativan he did okay. He did not drink. However, the Ativan ran out and he had to drink to stay out of withdrawal. He did see his primary care physician yesterday. Review of that note shows that he told his primary care doctor that he was sober and not on the Ativan and not drinking. I asked him about this. He states that he, in fact, did lie to the primary care doctor because he did not wish to burden him with his problems. We discussed how that is what primary care is for. We also discussed how that could make him look in the future dealing with healthcare as someone manipulating the healthcare system.. He became teary-eyed. He admits that it was probably not the right thing to do. He truly does not wish to keep drinking until Friday when he goes to [facility]. He would much rather be on Ativan over the weekend instead. He denies any physical complaints other than continued left knee pain. Injured this about a week ago. He also denies any SI or HI. He does admit to being depressed. He is very disappointed in himself. He also does not wish to continue to disappoint those around him. Related Data Home Medications Medication Instructions Recorded Confirmed methadone 100 mg PO DAILY ml 09/05/17 08/19/19 sildenafil (antihypertensive) 2.5 tab PO qd prn 30 Days #60 01/14/18 08/18/19 tab-cap lisdexamfetamine 50 mg capsule 50 mg PO QAM #30 cap MDD 50mg 08/18/19 08/19/19 clonidine HCl 0.1 mg PO BID 08/19/19 08/19/19 lorazepam 2 mg PO TID #10 tab 08/19/19 Previous Rx's Medication Instructions Recorded sildenafil (antihypertensive) 2.5 tab PO qd prn 30 Days #60 01/14/18 tab-cap lisdexamfetamine 50 mg capsule 50 mg PO QAM #30 cap MDD 50mg 08/18/19 lorazepam 2 mg PO TID #10 tab 08/19/19 Allergies Allergy/AdvReac Type Severity Reaction Status Date / Time No Known Allergies Allergy Verified 08/18/19 10:47 General PACO: 3 Review of Systems Narrative: As documented in HPI otherwise negative as below. Const: no fever, chills, weakness Resp: no cough, SOB, pleuritic pain CV: no CP, diaphoresis, edema, syncope GI: no abdominal pain, nausea, vomiting, diarrhea Neuro: no headache, numbness, focal weakness, confusion PFSH Medical History ADD (attention deficit disorder) (Inactive) Anxiety (Inactive 09/05/17) Hypertension (Inactive) Methadone dependence (Inactive 04/01/18) Social History Smoking/Tobacco Use Status: Current every day Tobacco Type: cigarettes Alcohol Intake: current Alcohol Intake frequency: 3 or more drinks per day Alcohol type: hard liquor Drug use: Occasionally Substance use type: does not use Details: States drinks 1-2 pints vodka daily. Do you feel safe at home: Yes Do you feel safe in your relationship?: Yes Exam Narrative Exam Narrative: Vitals: Afebrile. Hypertensive and tachycardic. Const: WDWN male who is clearly anxious/shaking. HEENT: NC/AT. Normal facial exam. Eyes: Normal conjunctiva and sclera. Neck: Supple. Trachea midline. Lungs: Normal respiratory effort. Lungs are clear. Cor: RRR without murmur/gallop. Good radial pulses. Neuro: A+O x 3. CN grossly in tact. Good strength and no focal deficit. Ext: No C/C/E. Left knee brace on. Psych: Normal mental status. Normal speech. Anxious, teary-eyed, denies SI or HI.
[2019-08-19] MEDS: LORazepam 2 MG/ML VIAL IVP (20:31)
[2019-08-19] MEDS: Lactated Ringers 1,000 ML 1000 ML IV (20:32)
[2019-08-19 20:47] LABS: ALT 54 U/L (16-63); AST 43 U/L (15-37); Albumin 4.3 g/dL (3.4-5.0); Alkaline Phosphatase 110 U/L (46-116); BUN 23 mg/dL (7-18); Bilirubin, Total 0.4 mg/dL (0.2-1.0); CREATININE 1.09 mg/dL (0.70-1.30); Calcium 9.7 mg/dL (8.5-10.1); Chloride 101 mmol/L (98-107); ETHANOL BLOOD 10.9 mg/dL (<3); Glucose 109 mg/dL (70-100); Magnesium 2.3 mg/dL (1.8-2.4); Potassium 4.1 mmol/L (3.5-5.1); Sodium 140 mmol/L (136-145); Total Protein 8.6 g/dL (6.4-8.2)
[2019-08-19 20:49] LABS: Abs Immature Grans 0.02 k/cumm (0.0-0.09); Absolute Basophil Count 0.03 k/cumm (0.0-0.2); Absolute Eosinophil Count 0.06 k/cumm (0.0-0.7); Absolute Lymphocyte Count 2.62 k/cumm (1.2-3.4); Absolute Monocyte Count 0.77 k/cumm (0.11-0.7); Absolute Neutrophil Count 5.31 k/cumm (1.2-6.7); Basophils % 0.3; Eosinophils % 0.7; HCT 48.1 % (40.0-50.0); HGB 16.4 g/dL (13.5-17.5); Immature Grans % 0.2; Lymphocytes % 29.7; Mean Corp. HGB Concentration 34.1 g/dL (32.0-36.0); Mean Corpuscular Hemoglobin 33.5 pg (27.0-33.0); Mean Corpuscular Volume 98.4 fL (80-95); Mean Platelet Volume 9.4 fL (8.0-11.0); Monocytes % 8.7; Neutrophils % 60.4; Platelet Count 280 x1000/uL (130-400); RBC 4.89 m/cumm (4.50-6.00); RBC Distribution Width 12.7 % (11.8-14.1); White Blood Cell Count 8.81 k/cumm (4.4-10.8)
[2019-08-19] MEDS: cloNIDine 0.1 MG TAB PO (21:26)
[2019-08-19] MEDS: LORazepam 2 MG/ML VIAL 1 MG IVP (21:27)
[2019-08-19] MEDS: LORazepam 1 MG TAB PO (22:21)
== END 2019-08-19 22:25 | disposition home or self-care (01) ==
PROVIDERS: Emergency Provider Emergency Medicine; PCP Family Medicine
DX: F10.230 Alcohol dependence with withdrawal, uncomplicated (principal); R00.0 Tachycardia, unspecified
CPT/HCPCS: 36415; 80053; 96361; 96374; 96375; 99284; 80320; 83735; 85025; J2060

== ENCOUNTER 2019-09-03 18:31 | Emergency (ER) | payer MEDICAID, SELFPAY ==
[2019-09-03 18:33] VITALS: BP 162/121; PULSE 125; RESP 18; TEMP 36.7; O2SAT 98
[2019-09-03] MEDS: LORazepam 1 MG TAB PO (19:15)
--- NOTE | 2019-09-03 20:49 | W.ED.GENAD ---
Discharge Plan Disposition Condition: Stable Discharge Details Chief Complaint: GenMedical Clinical Impression: Alcohol withdrawal Primary Care Provider: Tomi Dao ED Provider: Amparo Araujo Home Meds and New Rx's Prescriptions: No Action lorazepam 1 mg tablet 1 mg PO TID PRN (Reason: anxiety) Qty: 30 RF: 0 Vyvanse 50 mg capsule 50 mg PO QAM MDD 50mg Qty: 30 RF: 0 methadone 5 MG/5 ML solution 100 mg PO DAILY RF: 0 sildenafil (antihypertensive) 20 MG tablet 2.5 tab PO qd prn 30 Days Qty: 60 RF: 5 clonidine HCl 0.1 mg Tablet 0.1 mg PO BID RF: 0 Discharge Data Discharge Date/Time-TO BE ENTERED AT DEPARTURE: 09/03/19 20:50 Medical Decision Making 38-year-old gentleman presents for concern of alcohol withdrawal. Patient reports he has complaints of withdrawal symptoms for the last 5 days. Patient reports that he is a heavy drinker and has been for several years. Has intermittently withdrawn. Patient reports that he spoke with his PCP regarding his withdrawal symptoms. They did provide 30 tablets of Ativan on Friday. Patient has used all of his Ativan as he was using it during the day and during the evening for withdrawal symptoms. Patient reports Ativan was helpful for his withdrawal symptoms. Patient reports he does need additional medication as he has been through this process several time, is very familiar with the withdrawal symptoms and knows himself and feels he does need additional medication for few days. Patient was offered recovery evaluation in the emergency room. Patient consents to speaking with organ recovery coordinator. Patient is interested in outpatient programs but has no desire for inpatient management at this time. Given patient's presentation with hypertension and tachycardia a single dose of Ativan was given pending organ recovery coordinator evaluation. Patient becoming very anxious regarding waiting for organ recovery coordinator. Patient has waited over an hour. Encouraged to stay. Patient consents to staying for evaluation. After 30 minutes after patient's previous conversation regarding his anxiety waiting he left the emergency room prior to recovery evaluation. I spoke with organ recovery coordinator, Jason, when she arrived to the emergency room. She reached out to the patient and spoke with him over the phone. They will meet tomorrow to arrange for outpatient paperwork to be signed and she will check in with the patient tomorrow HPI General Date/Time Provider Initiated Documentation: 09/03/19 18:37. HPI Narrative: Is a 38-year-old gentleman who admits to alcoholism who is trying to sober up. He recently was prescribed 30 tablets of Ativan 1 mg for the last 5 days. Patient reports he did drink this morning because he was out of Ativan. Patient reports anxiety, mild nausea. Patient denies chest pain, difficulty breathing. Denies abdominal pain. Eating and drink without difficulty. Patient reports that he used 2 tablets of Ativan as needed for the last 5 days. Patient admits to very heavy drinking. Has detox several times. Patient is requesting additional medication for withdrawal symptoms. Patient feels he still requires medication management. Patient does have a prescription for Antabuse. Patient reports he is compliant with methadone. Patient denies any other concerns or complaints at this time. Patient is interested in outpatient programs but does not have any interest in inpatient care at this time Related Data Home Medications Medication Instructions Recorded Confirmed methadone 100 mg PO DAILY ml 09/05/17 09/03/19 sildenafil (antihypertensive) 2.5 tab PO qd prn 30 Days #60 01/14/18 09/03/19 tab-cap lisdexamfetamine 50 mg capsule 50 mg PO QAM #30 cap MDD 50mg 08/18/19 09/03/19 clonidine HCl 0.1 mg PO BID 08/19/19 09/03/19 lorazepam 1 mg tablet 1 mg PO TID PRN #30 tab 08/30/19 09/03/19 Previous Rx's Medication Instructions Recorded sildenafil (antihypertensive) 2.5 tab PO qd prn 30 Days #60 01/14/18 tab-cap lisdexamfetamine 50 mg capsule 50 mg PO QAM #30 cap MDD 50mg 08/18/19 lorazepam 1 mg tablet 1 mg PO TID PRN #30 tab 08/30/19 Allergies Allergy/AdvReac Type Severity Reaction Status Date / Time No Known Allergies Allergy Verified 09/03/19 18:42 General Stated Complaint: GenMedical PACO: 5 Review of Systems All systems reviewed & are unremarkable except as noted in HPI and below Constitutional Constitutional: Denies chills, Denies fatigue, Denies fever(s), Denies headache(s), Denies malaise and Denies weakness ENT Ears, Nose, Mouth, and Throat: Denies headache(s) Gastrointestinal Gastrointestinal: Denies abdominal pain, Denies constipation, Reports nausea and Denies vomiting Musculoskeletal Musculoskeletal: Denies numbness and Denies tingling Neurologic Neurologic: Denies headache(s), Denies numbness, Denies tingling and Denies weakness Psychiatric Psychiatric: Reports anxiety, Denies homicidal ideation and Denies suicidal ideation Endocrine Endocrine: Denies fatigue [facility] Medical History ADD (attention deficit disorder) (Inactive) Anxiety (Inactive 09/05/17) Hypertension (Inactive) Methadone dependence (Inactive 04/01/18) Social History Smoking/Tobacco Use Status: Current every day Tobacco Type: cigarettes Alcohol Intake: current Alcohol Intake frequency: 3 or more drinks per day Alcohol type: hard liquor Drug use: Current Sobriety Substance use type: does not use, former substance user, heroin and opiates Details: 09/03/19-States drinks 3 pints vodka daily. Do you feel safe at home: Yes Do you feel safe in your relationship?: Yes Exam Narrative Exam Narrative: CONST: Healthy appearing patient, in no acute distress. Well hydrated. Alert and alert. HENMT: Head nomocephalic, normal to inspection. Atraumatic. Hearing grossly normal. EYES: General normal appearance. Alignment normal. Eyelids normal. Conjunctiva normal. NECK: Normal visual inspection. FROM. Trachea midline. No Midline tenderness. CHEST: Normal insepection of the chest. RESP: Normal respiratory effort. Speaking full sentences. No cough. No audible wheezing. No retractions. MUSCULOSKELETAL: Normal Gait. FROM of all extremities. SKIN: Normal. Dry. No rashes. NEURO: Alert and awake. Speech clear. PSYCH: Normal affect. Cooperative. Course Vital Signs Vital signs: Vital Signs Temperature 36.7 C 09/03/19 18:33 Pulse 125 H 09/03/19 18:33 Respiratory Rate 18 09/03/19 18:33 Blood Pressure 162/121 H 09/03/19 18:33 Pulse Oximetry 98 09/03/19 18:33 Temperature 36.7 C 09/03/19 18:33 Temperature Source Skin 09/03/19 18:33 Pulse 125 H 09/03/19 18:33 Respiratory Rate 18 09/03/19 18:33 Respiratory Effort 09/03/19 18:45 Respiratory Depth Normal 09/03/19 18:45 Respiratory Pattern Normal 09/03/19 18:45 Blood Pressure 162/121 H 09/03/19 18:33 Blood Pressure Position Sitting 09/03/19 18:33 Pulse Oximetry 98 09/03/19 18:33 Oxygen Delivery Method Room Air 09/03/19 18:33 Oxygen Flow Rate 0 09/03/19 18:33 Pain Level 0 09/03/19 18:33
--- NOTE | 2019-09-03 20:51 | NUR.NOTE ---
pt advised that he was waiting on recovery agent to come visit pt and eta is appx 20 minutes. pt states he is done waiting and eloped. procedure writer attempted to stop pt, pt refused any further communication and exited ER. Dr Gleason advised with no futher orders. Nursing Note:
== END 2019-09-03 20:50 ==
PROVIDERS: Emergency Provider Physician Assistant; PCP Family Medicine
DX: F10.230 Alcohol dependence with withdrawal, uncomplicated (principal); F41.9 Anxiety disorder, unspecified; Z53.29 Procedure and treatment not carried out because of patient's decision for other reasons
CPT/HCPCS: 99283

== ENCOUNTER 2019-10-25 11:02 | Outpatient (CLI) | payer MEDICAID, SELFPAY ==
--- NOTE | 2019-10-25 09:14 | DI.RAD_ITS ---
EXAM: XR KNEE LT 3V AP,LAT,AMY INDICATION: L knee injury. COMPARISON: No exams were available for comparison TECHNIQUE: 2D digital imaging was performed. FINDINGS: No acute fracture or dislocation is present. There is a joint effusion. The soft tissues are unrema rkable.
== END 2019-10-25 11:22 ==
PROVIDERS: PCP Family Medicine; Visit Provider Physician Assistant
DX: M25.562 Pain in left knee (principal); M25.462 Effusion, left knee; S89.92XA Unspecified injury of left lower leg, initial encounter
CPT/HCPCS: 73562

== ENCOUNTER 2019-11-02 15:02 | Outpatient (CLI) | payer MEDICAID, SELFPAY ==
--- NOTE | 2019-11-02 08:18 | DI.MRI_ITS ---
EXAM: MR LOWER JOINT LT WO CLINICAL HISTORY: Left knee injury, [id number]., S/P SLIPPED ON ICE, PAIN TECHNIQUE: Multiplanar multisequence MRI was performed. COMPARISON: XR KNEE LT 3V AP,LAT,AMY from 10/25/2019 FINDINGS: There is a large joint effusion. The anterior cruciate ligament shows thickening and edema. There may be some intact fibers. The posterior cruciate ligament is intact. The lateral collateral ligam ent complex appears intact. There is edema around the medial collateral ligament but no evidence of a focal tear. There is a tear of the medial meniscus with the posterior horn flipped anteriorly, and medially, consistent with a bucket-handle type tear. There is mild edema in the medial femoral cond yle and medial tibial plateau consistent with a mild bone contusion. No focal cartilage defects are seen. The extensor mechanism appears intact. IMPRESSION: Bucket-handle type tear of the posterior horn and body of the medial meniscus. MCL sprain. Suspect partial ACL tear.
== END 2019-11-02 15:22 ==
PROVIDERS: PCP Family Medicine; Visit Provider Student in an Organized Health Care Education/Training Program
DX: S89.92XA Unspecified injury of left lower leg, initial encounter (principal); S83.212A Bucket-handle tear of medial meniscus, current injury, left knee, initial encounter; S83.412A Sprain of medial collateral ligament of left knee, initial encounter
CPT/HCPCS: 73721

== ENCOUNTER 2019-11-09 08:59 | Outpatient (CLI) | payer MEDICAID, SELFPAY ==
--- NOTE | 2019-11-09 09:05 | DI.RAD_ITS ---
EXAM: XR ANKLE RT COMPLETE INDICATION: Pain. COMPARISON: No exams were available for comparison TECHNIQUE: 2D digital imaging was performed. FINDINGS: There is an oblique fracture of the distal right fibula. The fracture occurs at the level of the ank le joint. There is lateral displacement of the distal fracture by approximately 1/3 shaft's width. On the lateral view there is a triangular density at the anterior aspect of the ankle joint. This m ay represent an displaced fracture fragment. No other fractures appreciated. There is soft tissue s welling about the ankle particularly laterally. IMPRESSION: 1. Mildly displaced distal right fibular fracture. 2. Small osseous density at the anterior aspect of the ankle joint on the lateral view. This may rep resent a small avulsed fracture.
== END 2019-11-09 09:19 ==
PROVIDERS: PCP Family Medicine; Visit Provider Student in an Organized Health Care Education/Training Program
DX: M25.571 Pain in right ankle and joints of right foot (principal); S82.61XA Displaced fracture of lateral malleolus of right fibula, initial encounter for closed fracture; S93.401A Sprain of unspecified ligament of right ankle, initial encounter
CPT/HCPCS: 73610

== ENCOUNTER 2019-12-14 16:06 | Outpatient (CLI) | payer MEDICAID, SELFPAY ==
--- NOTE | 2019-12-14 08:30 | DI.RAD_ITS ---
EXAM: XR ANKLE RT COMPLETE INDICATION: fx follow up healing. COMPARISON: XR ANKLE RT COMPLETE from 11/09/2019 TECHNIQUE: 2D digital imaging was performed. FINDINGS: There has been no change in alignment of the distal fibular fracture. There is increased callus form ation about the fracture consistent with some interval healing.
== END 2019-12-14 16:26 ==
PROVIDERS: PCP Family Medicine; Visit Provider Student in an Organized Health Care Education/Training Program
DX: S82.61XD Displaced fracture of lateral malleolus of right fibula, subsequent encounter for closed fracture with routine healing (principal)
CPT/HCPCS: 73610

== ENCOUNTER 2020-03-06 12:19 | Outpatient (CLI) | payer MEDICAID, SELFPAY ==
[2020-03-07 21:11] LABS: COVID-19 RT-PCR UVMMC Result Negative (Negative)
== END 2020-03-06 12:39 ==
PROVIDERS: PCP Family Medicine; Visit Provider Family Medicine
DX: Z11.59 Encounter for screening for other viral diseases (principal)
CPT/HCPCS: U0003

== ENCOUNTER 2020-04-05 18:05 | Outpatient (CLI) | payer MEDICAID, SELFPAY ==
--- NOTE | 2020-04-05 14:44 | DI.RAD_ITS ---
EXAM: XR ANKLE RT COMPLETE CLINICAL HISTORY: check healing. TECHNIQUE: 2D digital imaging was performed. COMPARISON: CR XR ANKLE RT COMPLETE from 12/14/2019 FINDINGS: There has been continued healing of the distal right fibular fracture. No change in alignment of the fracture is noted. No new fracture or dislocation is present. IMPRESSION: Healing distal right fibular fracture. DATA REPOSITORY: RADIATION DOSE DELIVERED:
== END 2020-04-05 18:25 ==
PROVIDERS: PCP Family Medicine; Visit Provider Student in an Organized Health Care Education/Training Program
DX: S82.61XD Displaced fracture of lateral malleolus of right fibula, subsequent encounter for closed fracture with routine healing (principal)
CPT/HCPCS: 73610

== ENCOUNTER 2020-04-07 01:53 | Outpatient (CLI) | payer MEDICAID, SELFPAY | END 2020-04-07 02:13 | PROVIDERS: PCP Family Medicine; Visit Provider Family Medicine | DX: Z53.8 Procedure and treatment not carried out for other reasons (principal) ==

== ENCOUNTER 2020-04-11 22:11 | Emergency (ER) | payer MEDICAID, SELFPAY ==
[2020-04-11 22:32] VITALS: BP 159/113; PULSE 109
[2020-04-11 22:33] VITALS: O2SAT 96
[2020-04-11 22:34] VITALS: BP 153/101; PULSE 105; PULSE 110; RESP 18; TEMP 37.4; O2SAT 94; O2SAT 96
[2020-04-11 22:40] VITALS: O2SAT 95
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
[2020-04-11 22:46] VITALS: BP 149/94; PULSE 97; O2SAT 95
[2020-04-11 23:40] LABS: Abs Immature Grans 0.01 k/cumm (0.0-0.09); Absolute Basophil Count 0.02 k/cumm (0.0-0.2); Absolute Lymphocyte Count 2.07 k/cumm (1.2-3.4); Absolute Neutrophil Count 8.13 k/cumm (1.2-6.7); Basophils % 0.2; HCT 45.7 % (40.0-50.0); HGB 15.3 g/dL (13.5-17.5); Immature Grans % 0.1 %; Lymphocytes % 19.5; Mean Corp. HGB Concentration 33.5 g/dL (32.0-36.0); Mean Corpuscular Hemoglobin 33.6 pg (27.0-33.0); Mean Corpuscular Volume 100.4 fL (80-95); Mean Platelet Volume 9.8 fL (8.0-11.0); Monocytes % 3.8; Neutrophils % 76.4; Platelet Count 263 x1000/uL (130-400); RBC 4.55 m/cumm (4.50-6.00); RBC Distribution Width 11.9 % (11.8-14.1); White Blood Cell Count 10.63 k/cumm (4.4-10.8)
[2020-04-11 23:51] LABS: ALT 37 U/L (16-63); AST 36 U/L (15-37); Alkaline Phosphatase 79 U/L (46-116); Anion Gap 8.3 mmol/L (3-11); BUN 17 mg/dL (7-18); Bilirubin, Total 0.3 mg/dL (0.2-1.0); CO2 29.7 mmol/L (21.0-32.0); CREATININE 1.19 mg/dL (0.70-1.30); Calcium 8.6 mg/dL (8.5-10.1); Chloride 99 mmol/L (98-107); ETHANOL BLOOD 261.5 mg/dL (<3); Glucose 107 mg/dL (74-106); Magnesium 2.1 mg/dL (1.8-2.4); Potassium 4.3 mmol/L (3.5-5.1); Sodium 137 mmol/L (136-145); Total Protein 7.5 g/dL (6.4-8.2)
[2020-04-11 23:53] VITALS: RESP 19
[2020-04-11] MEDS: cloNIDine 0.1 MG TAB PO (23:53)
[2020-04-11] MEDS: Normal Saline 1,000 ML 1000 ML IV (23:53)
[2020-04-11] MEDS: Ondansetron 4 MG/2 ML VIAL IVP (23:54)
[2020-04-11] MEDS: LORazepam 2 MG/ML VIAL 1 MG IVP (23:54)
[2020-04-12] VITALS: PULSE 104; RESP 21
[2020-04-12 01:02] VITALS: BP 126/85; PULSE 99; RESP 14; TEMP 37.3; O2SAT 95
== END 2020-04-12 01:05 | disposition home or self-care (01) ==
PROVIDERS: Emergency Provider Registered Nurse Emergency; PCP Family Medicine
DX: F10.120 Alcohol abuse with intoxication, uncomplicated (principal); Y90.8 Blood alcohol level of 240 mg/100 ml or more; I10 Essential (primary) hypertension
CPT/HCPCS: 36415; 80053; 96361; 96374; 96375; 99284; 80320; 83735; 85025; J2060; J2405

== ENCOUNTER 2020-12-13 19:08 | Emergency (ER) | payer MEDICAID, SELFPAY ==
--- NOTE | 2020-12-13 19:28 | ED.GENADUL_ITS ---
Discharge Plan Disposition Patient Disposition: OTHER Condition: Stable Discharge Details Clinical Impression: Contusion of right hand, Alcohol abuse Primary Care Provider: Tomi Dao ED Provider: Luly Shafer Home Meds and New Rx's Prescriptions: No Action disulfiram [Antabuse] 250 mg tablet 250 mg PO DAILY Qty: 30 RF: 5 clomiphene citrate 50 mg tablet 25 mg PO .qod Qty: 30 RF: 0 methadone 5 MG/5 ML solution 105 mg PO DAILY RF: 0 sildenafil (pulm.hypertension) 20 mg tablet 50 mg PO qd prn 30 Days Qty: 60 RF: 5 clonidine HCl 0.1 mg tablet 0.1 mg PO BID Qty: 60 RF: 5 Vyvanse 60 mg capsule 60 mg PO QAM MDD 60 Qty: 30 RF: 0 Discharge Data Discharge Date/Time-TO BE ENTERED AT DEPARTURE: 12/13/20 19:27 Medical Decision Making 40-year-old male with a history of chronic alcohol abuse, alcohol withdrawal seizures, methadone dependence, ADHD presented initially for right hand injury after fall onto his right hand while using a chainsaw yesterday. He had an area of ecchymosis and edema to his right dorsal medial hand concernin g for metacarpal fracture. He also had a crusted laceration overlying his right fifth metacarpal. No obvious deformity noted. Right wrist normal to inspection. Motor/sensory grossly intact. He denied any punching injury to his right hand. After my evaluation of his hand, patient stated he was also here for alcohol detox. He states his last drink was 3 hours ago and that he drank a pint today. He drinks a half a gallon of vodka daily. While discussing pt's request for alcohol detox and that the diagnosis and treatment plan of this can include lab work, telemetry monitoring and recovery collector, patient became significantly agitated and stated You won't do anything fmelody for me and you will never fmelody help me. He stated all you will do is keep me here for 5 hours and not be able to help me . I reiterated the plan of blood work and continued monitoring to determine if he was in withdrawal but he did not want any work-up for his alcohol detox at this time. He then stated he only wanted to evaluate his hand at this time. Patient began to get significantly agitated and had to be repeatedly asked to put his mask up. As I walked out of room, patient then walked after me stated he was leaving. Patient then eloped from ED. HPI General Mode of arrival: ambulatory . Date/Time Provider Initiated Documentation: 12/13/20 19:26 . Limitations to Documentation: no limitations . Information obtained by: patient . HPI Narrative: Patient is a 40-year-old male with a history of chronic alcohol abuse and history of alcohol withdrawal seizures, methadone dependence, ADHD presents for right hand injury. Patient states he was using a chain saw yesterday to a tree when he fell onto his right hand. He denies any pain in his right wrist. He denies any direct injury or punching injury to his hand. He states his tetanus is up-to-date 2012. After initial evaluation for his hand, patient stated he was here also for alcohol detox. Patient states his last drink was 3 hours ago. He states he drinks half gallon of vodka daily. He states he had a pint of vodka today. He does admit to feeling shaky over the past few hours but denies any chest pain, shortness of breath, vomiting or abdominal pain. He states he has been wanting to stop drinking alcohol but states he does not know where to [facility] to [facility] at this time during the pandemic. Related Data Home Medications Medication Instructions Recorded Confirmed methadone 105 mg PO DAILY ml 09/05/17 04/11/20 clomiphene citrate 50 mg tablet 25 mg PO .qod #30 tab 05/23/20 05/23/20 disulfiram 250 mg tablet 250 mg PO DAILY #30 tab 05/23/20 05/23/20 sildenafil (pulm.hypertension) 20 50 mg PO qd prn 30 Days #60 tab-cap 08/28/20 mg tablet clonidine HCl 0.1 mg tablet 0.1 mg PO BID #60 tab 11/02/20 lisdexamfetamine 60 mg capsule 60 mg PO QAM #30 cap MDD 60 11/24/20 Previous Rx's Medication Instructions Recorded clomiphene citrate 50 mg tablet 25 mg PO .qod #30 tab 05/23/20 disulfiram 250 mg tablet 250 mg PO DAILY #30 tab 05/23/20 sildenafil (pulm.hypertension) 20 50 mg PO qd prn 30 Days #60 tab-cap 08/28/20 mg tablet clonidine HCl 0.1 mg tablet 0.1 mg PO BID #60 tab 11/02/20 lisdexamfetamine 60 mg capsule 60 mg PO QAM #30 cap MDD 60 11/24/20 Allergies Allergy/AdvReac Type Severity Reaction Status Date / Time No Known Allergies Allergy Verified 04/11/20 22:38 General PACO: 2 Review of Systems All systems reviewed & are unremarkable except as noted in HPI and below Constitutional Constitutional: Reports as per HPI, Denies chills and Denies fever(s) Eyes Eyes: Denies blurry vision ENT Ears, Nose, Mouth, and Throat: Denies dizziness, Denies sore throat and Denies throat swelling Cardiovascular Cardiovascular: Denies chest pain and Denies dyspnea Respiratory Respiratory: Denies cough and Denies dyspnea Gastrointestinal Gastrointestinal: Denies abdominal pain, Denies diarrhea and Denies vomiting Genitourinary Genitourinary: Denies hematuria and Denies dysuria Musculoskeletal Musculoskeletal: Denies back pain, Denies numbness and Reports other (R hand pain, swelling and laceration) Integumentary/Breasts Skin/Breast: Denies lesions and Denies rash Neurologic Neurologic: Denies dizziness, Denies localized weakness and Denies numbness Allergic/Immunologic Allergic/Immunologic: Denies throat swelling [facility] Medical History (Updated 12/13/20 @ 19:43 by Luly Shafer DO) ADD (attention deficit disorder) Anxiety (09/05/17) Hypertension Internal derangement of left knee Methadone dependence (04/01/18) Family History Mother Diabetes Father Diabetes Essential hypertension Brother No problems noted. Brother No problems noted. Grandfather No problems noted. Grandfather No problems noted. Grandmother No problems noted. Grandmother No problems noted. Daughter No problems noted. Social History Smoking/Tobacco Use Status: Current every day Tobacco Type: cigarettes Smoking risk assessment performed?: Yes Alcohol Intake: current Alcohol Intake frequency: 3 or more drinks per day Alcohol type: hard liquor Drug use: Never Substance use type: former substance user Details: 09/03/19-States drinks 3 pints vodka daily. Current gender identity: male Do you feel safe at home: Yes Do you feel safe in your relationship?: Yes Exam Const General: cooperative, healthy appearing and no acute distress HENAZ Head: normal to inspection Mouth: oral mucosae normal Eyes General: appearance normal, both eyes and all related structures Neck Neck: normal visual inspection Resp Effort & Inspection: normal respiratory effort and able to speak in complete sentences Cardio Rate: regular rate Skin General skin exam: no rashes or lesions noted Neuro General: patient alert, patient awake and patient oriented x3 Motor: muscle tone normal throughout Extrem Hand/finger images: 1. Moderate edema and ecchymosis to the right dorsal hand overlying right third fourth and fifth metacarpals. 2. 1cm crusted laceration overlying right fifth metacarpal. Other: Fingers appear normal to inspection. Right wrist appears normal to inspection without edema, ecchymosis, tenderness. No right snuffbox tenderness. Right radial and ulnar pulses intact. Psych Appearance: grossly normal Affect: normal affect
--- NOTE | 2020-12-13 19:38 | NUR.NOTE ---
Nurse went out to waiting room and brought patient into the room. Pt asked nurse to close door so he could tell me why he was here. He stated that he had fell from a tree and thinks he broke his R hand and stated the other reason he was here was he also wanted help with alcohol detox. He stated that his last drink was 3hours ago and he usually drinks a half gallon a day. He stated that the doctor he usually sees left the practice and he hasn't had a chance to meet his new PCP. MD then walked in to evaluate. After MD left the room, patient got increasing agitated, noted to be talking to himself. Slid the door and stated I am fucking leaving. [place] people. Pt then made his way to the parking lot.
== END 2020-12-13 19:27 | disposition other institution (70) ==
PROVIDERS: Emergency Provider Physician Assistant; PCP Family Medicine
DX: S61.411A Laceration without foreign body of right hand, initial encounter (principal); W18.30XA Fall on same level, unspecified, initial encounter; Y93.89 Activity, other specified; F10.10 Alcohol abuse, uncomplicated; Z53.29 Procedure and treatment not carried out because of patient's decision for other reasons
CPT/HCPCS: 99281

== ENCOUNTER 2020-12-21 03:20 | Outpatient (CLI) | payer MEDICAID, SELFPAY ==
[2020-12-21 12:38] LABS: Abs Immature Grans 0.01 10^3/uL (0.0-0.06); Absolute Basophil Count 0.04 10^3/uL (0.0-0.2); Absolute Eosinophil Count 0.11 10^3/uL (0.0-0.7); Absolute Lymphocyte Count 2.68 10^3/uL (1.2-3.4); Absolute Monocyte Count 0.47 10^3/uL (0.1-0.8); Absolute Neutrophil Count 3.04 10^3/uL (1.2-6.7); Basophils % 0.6; Eosinophils % 1.7; HCT 45.8 % (40.0-50.0); HGB 15.5 g/dL (13.5-17.5); Immature Grans % 0.2; Lymphocytes % 42.2; MCH 34.8 pg (27.0-33.0); MCHC 33.8 % (32.0-36.0); MCV 102.9 fL (80-95); MPV 9.1 fL (8.0-11.0); Monocytes % 7.4; Neutrophils % 47.9; Nucleated RBC 0 %; Platelet Count 184 10^3/uL (130-400); RBC 4.45 10^6/uL (4.36-5.78); RDW 11.9 % (11.8-14.1); RDW-SD 45.6 fL; WBC 6.35 10^3/uL (4.4-10.8)
[2020-12-21 13:17] LABS: ALT 113 U/L (16-63); AST 75 U/L (15-37); Albumin 4.3 g/dL (3.4-5.0); Alkaline Phosphatase 109 U/L (46-116); Anion Gap 11.6 mmol/L (3-11); BUN 15 mg/dL (7-18); Bilirubin, Total 0.3 mg/dL (0.2-1.0); CO2 29.4 mmol/L (21.0-32.0); CREATININE 0.8 mg/dL (0.70-1.30); Calcium 9.2 mg/dL (8.5-10.1); Chloride 103 mmol/L (98-107); Glucose 86 mg/dL (74-106); Potassium 4.1 mmol/L (3.5-5.1); Sodium 144 mmol/L (136-145); Total Protein 7.8 g/dL (6.4-8.2)
[2020-12-21 18:56] LABS: FSH 3.3 mIU/mL (1.4-18.1); LH 1.1 mIU/mL (1.5-9.3)
[2020-12-23 10:20] LABS: Adrenocorticotropic Hormone, P 21 pg/mL
[2020-12-27 12:41] LABS: Testosterone, Free 0.85 ng/dL (4.46-17.1); Testosterone, Total 47 ng/dL (240-950)
== END 2020-12-21 03:21 | disposition home or self-care (01) ==
LOC: LBO 03:20
PROVIDERS: PCP Family Medicine; Visit Provider Internal Medicine Endocrinology, Diabetes & Metabolism
DX: I10 Essential (primary) hypertension (principal); F10.10 Alcohol abuse, uncomplicated; R53.83 Other fatigue; E22.1 Hyperprolactinemia; E23.0 Hypopituitarism
CPT/HCPCS: 36415; 80053; 82533; 84402; 84403; 82024; 83001; 83002; 84146; 85025

== ENCOUNTER 2021-01-10 19:43 | Outpatient (REF) | payer MEDICAID, SELFPAY ==
[2021-01-12 16:01] LABS: Alcohol Presumptive Positive mg/dL (Cutoff: 10); Amphetamines Negative; Barbiturates Presumptive Positive ng/mL; Benzodiazepines Presumptive Positive ng/mL; Cocaine Negative; Opiates Negative; Phencyclidine Negative ng/mL (Cutoff: 25); Tetrahydrocannabinol Negative ng/mL (Cutoff: 50)
[2021-01-16 17:54] LABS: 2-OH-Ethyl-Flurazepam Negative ng/mL (Cutoff: 10); 7-NH-Clonazepam Negative ng/mL (Cutoff: 10); 7-NH-Flunitrazepam Negative ng/mL (Cutoff: 10); Alpha OH-Alprazolam Negative ng/mL (Cutoff: 10); Alpha-OH Midazolam Negative ng/mL (Cutoff: 10); Alpha-OH-Triazolam Negative ng/mL (Cutoff: 10); Alprazolam Negative ng/mL (Cutoff: 10); Benzodiazepines Interpretation Positive.; Chlordiazepoxide Negative ng/mL (Cutoff: 10); Clobazam Negative ng/mL (Cutoff: 10); Clonazepam Negative ng/mL (Cutoff: 10); Diazepam Negative ng/mL (Cutoff: 10); Flurazepam Negative ng/mL (Cutoff: 10); Lorazepam Negative ng/mL (Cutoff: 10); Midazolam Negative ng/mL (Cutoff: 10); N-Desmethylclobazam Negative ng/mL (Cutoff: 10); Prazepam Negative ng/mL (Cutoff: 10); Temazepam 1433 ng/mL (Cutoff: 10); Triazolam Negative ng/mL (Cutoff: 10); Zolpidem Carboxylic acid Negative ng/mL (Cutoff: 10)
[2021-01-25 09:54] LABS: Amobarbital Negative ng/mL (Cutoff: 100); Butalbital Negative ng/mL (Cutoff: 100); Pentobarbital Negative ng/mL (Cutoff: 100); Secobarbital Negative ng/mL (Cutoff: 100)
[2021-01-25 09:59] LABS: EDDP-by GC-MS 4217 ng/mL (Cutoff: 100); Methadone-by GC-MS 4397 ng/mL (Cutoff: 100)
[2021-01-25 10:00] LABS: Methadone Interpretation Positive
[2021-01-25 10:01] LABS: Ethanol Interpretation Positive; Ethanol-by GC-FID 105 mg/dL (Cutoff: 10)
[2021-01-25 10:02] LABS: Barbiturates Interpretation Positive
== END 2021-01-10 19:44 | disposition home or self-care (01) ==
LOC: LBN 19:43
PROVIDERS: PCP Family Medicine; Visit Provider Emergency Medicine
DX: F10.10 Alcohol abuse, uncomplicated (principal)
CPT/HCPCS: 80307; 80320; 80345; 80346; 80358

== ENCOUNTER 2021-02-16 12:00 | Inpatient (IN) | payer MEDICAID, SELFPAY ==
[2021-02-16] VITALS (117 sets, daily range): BP systolic 116–160; BP diastolic 64–119; PULSE 72–122; RESP 9–21; TEMP 36.6–36.8; O2SAT 92–99
[2021-02-16 13:37] LABS: Bilirubin Negative (Negative); Blood Trace-lysed (Negative); Clarity Clear (Clear); Glucose Negative (Negative); Ketones Negative (Negative); Leukocyte Esterase Negative (Negative); Nitrite Negative (Negative); Specific Gravity 1.015 (1.005-1.025); Urobilinogen 0.2 EU/dL (Up TO 0.2); pH 6.5 (5-8)
--- NOTE | 2021-02-16 13:39 | W.ED.GENAD ---
Discharge Plan Disposition Patient Disposition: [facility] INPATIENT Discharge Details Chief Complaint: PsychEval Clinical Impression: Alcohol withdrawal, Suicide ideation Primary Care Provider: Tomi Dao ED Provider: Gabo Conde Home Meds and New Rx's Prescriptions: No Action disulfiram [Antabuse] 250 mg tablet 250 mg PO DAILY Qty: 30 RF: 5 methadone 5 MG/5 ML solution 105 mg PO DAILY RF: 0 sildenafil (pulm.hypertension) 20 mg tablet 50 mg PO qd prn 30 Days Qty: 60 RF: 5 clonidine HCl 0.1 mg tablet 0.1 mg PO BID Qty: 60 RF: 5 Vyvanse 60 mg capsule 60 mg PO QAM MDD 60 Qty: 30 RF: 0 clomiphene citrate 50 mg tablet 50 mg PO .qod RF: 0 Medical Decision Making This is a 40-year-old gentleman, past medical history of anxiety, hypertension, ADD, methadone dependence, presenting to the ER for evaluation of suicidal ideation and alcohol withdrawal. He has had alcohol withdrawal seizures and DTs in the past. He presents anxious, tremulous, tachycardic. Will initiate IV access, obtain baseline CIWA score, banana bag, laboratory values for medical screening examination, care management plan, mental health evaluation, and a CPSO. I consulted with our hospitalist team Michelle Reyes NP. The patient will likely require admission to our facility and given his severe alcohol withdrawal will need the ICU. Discussed treatment plan. We will start with a loading dose of phenobarbital and attempt to avoid any benzodiazepines. Upon reevaluation heart rate now in the low 90s, he is less tremulous and blood pressure is trending downward. Patient did think that he saw a dog running through the ER. Although he does clinically appear to be slightly better it appears as he is now likely hallucinating. Laboratory values have resulted and do not reveal any obvious emergent process. Alcohol level of 134. Will obtain Covid swab for admission. Patient likely requires ICU given his high likelihood of severe alcohol withdrawal. Case once again discussed with Dr. Logan who was agreeable to admission to the ICU. Medical Records Medical records reviewed: Yes I reviewed the patient's medical records. Lab Data Lab results reviewed: Yes I reviewed the patient's lab results. Labs: Laboratory Tests Range/Units 04/23/21 04/23/21 04/23/21 12:50 12:50 12:50 WBC (4.4-10.8) 10^3/uL 10.65 RBC (4.36-5.78) 10^6/uL 4.45 Hgb (13.5-17.5) g/dL 15.9 Hct (40.0-50.0) % 45.8 MCV (80-95) fL 102.9 H MCH (27.0-33.0) pg 35.7 H MCHC (32.0-36.0) % 34.7 RDW (11.8-14.1) % 11.7 L Plt Count (130-400) 10^3/uL 159 MPV (8.0-11.0) fL 10.1 Immature Gran % 0.4 Neutrophils % 85.6 Lymphocytes % 7.1 Monocytes % 6.5 Eosinophils % 0.0 Basophils % 0.4 Nucleated RBC % % 0 Absolute Neutrophils (1.2-6.7) 10^3/uL 9.12 H Absolute Lymphocytes (1.2-3.4) 10^3/uL 0.76 L Absolute Monocytes (0.1-0.8) 10^3/uL 0.69 Absolute Eosinophils (0.0-0.7) 10^3/uL 0.00 Absolute Basophils (0.0-0.2) 10^3/uL 0.04 Sodium (136-145) mmol/L 136 Potassium (3.5-5.1) mmol/L 3.4 L Chloride (98-107) mmol/L 96 L Carbon Dioxide (21.0-32.0) mmol/L 28.0 Anion Gap (3-11) mmol/L 12.0 H BUN (7-18) mg/dL 18 Creatinine (0.70-1.30) mg/dL 0.8 Estimated GFR/1.73 m2 (mL/min/1.73m2) >= 60.00 Glucose (74-106) mg/dL 132 H Calcium (8.5-10.1) mg/dL 10.7 H Total Bilirubin (0.2-1.0) mg/dL 0.9 AST (15-37) U/L 47 H ALT (16-63) U/L 86 H Alkaline Phosphatase (46-116) U/L 101 Total Protein (6.4-8.2) g/dL 8.8 H Albumin (3.4-5.0) g/dL 4.8 TSH (0.36-3.74) uIU/mL 1.30 Urine Color (Yellow) Urine Clarity (Clear) Urine pH (5-8) Ur Specific Sanford (1.005-1.025) Urine Protein (Negative) mg/dL Urine Ketones (Negative) mg/dL Urine Blood (Negative) Urine Nitrite (Negative) Urine Bilirubin (Negative) Urine Urobilinogen (Up TO 0.2) EU/dL Ur Leukocyte Esterase (Negative) Urine RBC (0-2) HPF Urine WBC (0-5) HPF Ur Epithelial Cells (Negative) HPF Urine Crystals (Negative) HPF Urine Bacteria (Negative) HPF Urine Casts (Negative) LPF Urine Mucus (Negative) Ur Culture Indicated? Urine Glucose (Negative) mg/dL Salicylates (<2.8) mg/dL 3.1 Urine Opiates Screen (Negative) Urine Methadone Screen (Negative) Acetaminophen (10-30) ug/mL < 2 Ur Barbiturates Screen (Negative) Ur Tricyclics Screen (Negative) Ur Amphetamines Screen (Negative) U Benzodiazepines Scrn (Negative) Urine Cocaine Screen (Negative) Ur THC Screen (Negative) Ethyl Alcohol (<3) mg/dL 134.6 Range/Units 02/16/21 02/16/21 13:20 13:20 WBC (4.4-10.8) 10^3/uL RBC (4.36-5.78) 10^6/uL Hgb (13.5-17.5) g/dL Hct (40.0-50.0) % MCV (80-95) fL MCH (27.0-33.0) pg MCHC (32.0-36.0) % RDW (11.8-14.1) % Plt Count (130-400) 10^3/uL MPV (8.0-11.0) fL Immature Gran % Neutrophils % Lymphocytes % Monocytes % Eosinophils % Basophils % Nucleated RBC % % Absolute Neutrophils (1.2-6.7) 10^3/uL Absolute Lymphocytes (1.2-3.4) 10^3/uL Absolute Monocytes (0.1-0.8) 10^3/uL Absolute Eosinophils (0.0-0.7) 10^3/uL Absolute Basophils (0.0-0.2) 10^3/uL Sodium (136-145) mmol/L Potassium (3.5-5.1) mmol/L Chloride (98-107) mmol/L Carbon Dioxide (21.0-32.0) mmol/L Anion Gap (3-11) mmol/L BUN (7-18) mg/dL Creatinine (0.70-1.30) mg/dL Estimated GFR/1.73 m2 (mL/min/1.73m2) Glucose (74-106) mg/dL Calcium (8.5-10.1) mg/dL Total Bilirubin (0.2-1.0) mg/dL AST (15-37) U/L ALT (16-63) U/L Alkaline Phosphatase (46-116) U/L Total Protein (6.4-8.2) g/dL Albumin (3.4-5.0) g/dL TSH (0.36-3.74) uIU/mL Urine Color (Yellow) Yellow Urine Clarity (Clear) Clear Urine pH (5-8) 6.5 Ur Specific Sanford (1.005-1.025) 1.015 Urine Protein (Negative) mg/dL 100 H Urine Ketones (Negative) mg/dL Negative Urine Blood (Negative) Trace-lysed H Urine Nitrite (Negative) Negative Urine Bilirubin (Negative) Negative Urine Urobilinogen (Up TO 0.2) EU/dL 0.2 Ur Leukocyte Esterase (Negative) Negative Urine RBC (0-2) HPF 3-5 H Urine WBC (0-5) HPF 0-2 Ur Epithelial Cells (Negative) HPF Few Urine Crystals (Negative) HPF Negative Urine Bacteria (Negative) HPF Rare Urine Casts (Negative) LPF 0-2 fine granular Urine Mucus (Negative) Negative Ur Culture Indicated? No Urine Glucose (Negative) mg/dL Negative Salicylates (<2.8) mg/dL Urine Opiates Screen (Negative) Negative Urine Methadone Screen (Negative) Positive A Acetaminophen (10-30) ug/mL Ur Barbiturates Screen (Negative) Negative Ur Tricyclics Screen (Negative) Negative Ur Amphetamines Screen (Negative) Positive A U Benzodiazepines Scrn (Negative) Negative Urine Cocaine Screen (Negative) Negative Ur THC Screen (Negative) Negative Ethyl Alcohol (<3) mg/dL HPI General Mode of arrival: ambulatory. Date/Time Provider Initiated Documentation: 02/16/21 12:03. Limitations to Documentation: no limitations. Information obtained by: patient. HPI Narrative: This is a 40-year-old gentleman, past medical history that includes anxiety, hypertension, ADD, methadone dependence, alcohol abuse with alcohol withdrawal seizures and DTs. He presents today reporting increased stress regarding an exrelationship and finances. This increased stress has caused him to feel suicidal however he has no specific plan. He denies recent illness or trauma. He has not done anything today to harm himself. He has no homicidal ideations. Patient reports that he drinks approximately a half a gallon of hard liquor daily, last drink was this morning. He states that he would also like help with alcohol detox and he has formally detox in facilities in the past. He reports feeling tremulous, anxious, nauseous but denies any headache, fever, chest pain, shortness of breath, abdominal pain, vomiting, urinary or bowel complaints, rash, numbness, tingling, weakness. He states that he is taking his methadone as directed, she does smoke cigarettes daily, denies any other drug use. Related Data Home Medications Medication Instructions Recorded Confirmed methadone 105 mg PO DAILY ml 09/05/17 02/16/21 disulfiram 250 mg tablet 250 mg PO DAILY #30 tab 05/23/20 05/23/20 sildenafil (pulm.hypertension) 20 50 mg PO qd prn 30 Days #60 tab-cap 08/28/20 mg tablet clonidine HCl 0.1 mg tablet 0.1 mg PO BID #60 tab 11/02/20 02/16/21 lisdexamfetamine 60 mg capsule 60 mg PO QAM #30 cap MDD 60 02/13/21 02/16/21 clomiphene citrate 50 mg PO .qod 02/16/21 02/16/21 Previous Rx's Medication Instructions Recorded disulfiram 250 mg tablet 250 mg PO DAILY #30 tab 05/23/20 sildenafil (pulm.hypertension) 20 50 mg PO qd prn 30 Days #60 tab-cap 08/28/20 mg tablet clonidine HCl 0.1 mg tablet 0.1 mg PO BID #60 tab 11/02/20 lisdexamfetamine 60 mg capsule 60 mg PO QAM #30 cap MDD 60 02/13/21 Allergies Allergy/AdvReac Type Severity Reaction Status Date / Time No Known Allergies Allergy Verified 02/16/21 12:21 General Stated Complaint: PsychEval PACO: 2 Review of Systems Constitutional Constitutional: Reports fatigue, Denies fever(s) and Denies headache(s) Eyes Eyes: Denies change in vision ENT Ears, Nose, Mouth, and Throat: Denies headache(s) and Denies neck pain Cardiovascular Cardiovascular: Denies chest pain and Denies dyspnea Respiratory Respiratory: Denies cough and Denies dyspnea Gastrointestinal Gastrointestinal: Denies abdominal pain, Reports nausea and Denies vomiting Genitourinary Genitourinary: Denies dysuria Musculoskeletal Musculoskeletal: Denies neck pain, Denies numbness and Denies tingling Integumentary/Breasts Skin/Breast: Denies rash Neurologic Neurologic: Denies headache(s), Denies numbness and Denies tingling Psychiatric Psychiatric: Reports anxiety, Reports depression, Denies homicidal ideation and Reports suicidal ideation Endocrine Endocrine: Reports fatigue [facility] Medical History ADD (attention deficit disorder) Anxiety (09/05/17) Hypertension Internal derangement of left knee Methadone dependence (04/01/18) Family History Mother Diabetes Father Diabetes Essential hypertension Brother No problems noted. Brother No problems noted. Grandfather No problems noted. Grandfather No problems noted. Grandmother No problems noted. Grandmother No problems noted. Daughter No problems noted. Social History Smoking/Tobacco Use Status: Current every day Tobacco Type: cigarettes Smoking risk assessment performed?: Yes Alcohol Intake: current Alcohol Intake frequency: 3 or more drinks per day Alcohol type: hard liquor Drug use: Never Substance use type: former substance user Details: 02/16/21-States drinks 1/2 gallon vodka daily. Current gender identity: male Do you feel safe at home: Yes Do you feel safe in your relationship?: Yes Exam Const General: cooperative, no acute distress and anxious Orientation: alert, awake and oriented x3 HENMT Head: normal to inspection, normocephalic and atraumatic Face and sinus: normal facial exam Mouth: moist mucous membranes abnormal (dry) Throat: posterior oropharynx normal Eyes General: appearance normal, both eyes and all related structures Alignment and Position: alignment normal Periorbital: periorbital findings normal Eyelids: eyelids normal Conjunctivae: conjunctivae normal Sclera: sclerae normal Cornea: corneas normal Pupils: PERRL EOM: EOM intact bilaterally Direct ophthalmoscopy: normal light reflex Neck Neck: normal visual inspection, full ROM, no meningeal signs, trachea midline and supple Resp Effort & Inspection: normal respiratory effort and able to speak in complete sentences Auscultation: clear to auscultation bilaterally Cardio Rate: tachycardic (120's) Rhythm: regular rhythm GI Palpation: soft and nontender Back/Spine/Pelvis Back: No back tenderness Skin General skin exam: no rashes or lesions noted Neuro General: patient alert, patient awake, patient oriented x3, moves all extremities, no focal motor deficits and other (Mild generalized tremor) Cranial Nerves: CN's II-XI intact bilaterally Cognition: normal cognition Speech: speech normal Gait: normal gait Motor: muscle tone normal throughout and strength 5/5 throughout Sensory Exam: no sensory deficits noted Extrem General: normal to inspection, full ROM, capillary refill normal, no pedal edema and no calf tenderness Psych Appearance: grossly normal Mental Status: mental status grossly normal Course Vital Signs Vital signs: Vital Signs Temperature 36.7 C 02/16/21 12:10 Pulse 122 H 02/16/21 12:10 Respiratory Rate 18 02/16/21 12:10 Blood Pressure 155/119 H 02/16/21 12:10 Pulse Oximetry 94 02/16/21 12:10 Temperature 36.7 C 02/16/21 12:10 Temperature Source Skin 02/16/21 12:10 Pulse 97 H 02/16/21 13:16 Pulse 104 H 02/16/21 13:20 Respiratory Rate 12 02/16/21 13:20 Respiratory Effort 02/16/21 12:25 Blood Pressure 140/103 H 02/16/21 13:16 Blood Pressure Mean 111 02/16/21 13:16 Blood Pressure Position Sitting 02/16/21 12:10 Pulse Oximetry 96 02/16/21 13:20 Oxygen Delivery Method Room Air 02/16/21 12:10 Oxygen Flow Rate 0 02/16/21 12:10 Lab/Test Results Lab/Test Results: Laboratory Tests Range/Units 02/16/21 13:20 Urine Color (Yellow) Yellow Urine Clarity (Clear) Clear Urine pH (5-8) 6.5 Ur Specific [place] (1.005-1.025) 1.015 Urine Protein (Negative) mg/dL 100 H Urine Ketones (Negative) mg/dL Negative Urine Blood (Negative) Trace-lysed H Urine Nitrite (Negative) Negative Urine Bilirubin (Negative) Negative Urine Urobilinogen (Up TO 0.2) EU/dL 0.2 Ur Leukocyte Esterase (Negative) Negative Urine Glucose (Negative) mg/dL Negative Critical Care Time Critical Care Time Critical Care Time: Yes Total Critical Care Time: 35 Attestation: Upon my evaluation, this patient had a high probability of clinically significant, life-threatening deterioration due to their current medical conditions, which required my direct attention, intervention, and personal management. I have personally provided greater than 30 minutes of critical care time exclusive of the time spend on separately billable procedures. Time includes obtaining a history, examining the patient, pulse oximetry, review of laboratory data, radiology results, discussion with consultants, arranging urgent treatment with development of a management plan, evaluation of patient's response to treatment, and monitoring for potential decompensation. Interventions were performed as documented above.
[2021-02-16 13:41] LABS: Abs Immature Grans 0.04 10^3/uL (0.0-0.06); Absolute Basophil Count 0.04 10^3/uL (0.0-0.2); Absolute Lymphocyte Count 0.76 10^3/uL (1.2-3.4); Absolute Monocyte Count 0.69 10^3/uL (0.1-0.8); Absolute Neutrophil Count 9.12 10^3/uL (1.2-6.7); Basophils % 0.4; HCT 45.8 % (40.0-50.0); HGB 15.9 g/dL (13.5-17.5); Immature Grans % 0.4; Lymphocytes % 7.1; MCH 35.7 pg (27.0-33.0); MCHC 34.7 % (32.0-36.0); MCV 102.9 fL (80-95); MPV 10.1 fL (8.0-11.0); Monocytes % 6.5; Neutrophils % 85.6; Nucleated RBC 0 %; Platelet Count 159 10^3/uL (130-400); RBC 4.45 10^6/uL (4.36-5.78); RDW 11.7 % (11.8-14.1); RDW-SD 44.7 fL; WBC 10.65 10^3/uL (4.4-10.8)
[2021-02-16 13:51] LABS: Bacteria Rare HPF (Negative); C & S Indicated? No; Casts 0-2 Fine Granular LPF (Negative); Crystals Negative HPF (Negative); Epithelial Cells Few HPF (Negative); Mucus Negative (Negative); WBC 0-2 HPF (0-5)
[2021-02-16 13:52] LABS: Salicylate 3.1 mg/dL (<2.8)
[2021-02-16 13:58] LABS: *AMPHETAMINES SCREEN URINE Positive (Negative); *BARBITURATES SCREEN URINE Negative (Negative); *BENZODIAZEPINES SCREEN URINE Negative (Negative); Cannabinoids THC Negative (Negative); Cocaine Screen,Urine Negative (Negative); METHADONE URINE SCREEN Positive (Negative); OPIATES URINE SCREEN Negative (Negative)
[2021-02-16 13:58] LABS: ALT 86 U/L (16-63); AST 47 U/L (15-37); Albumin 4.8 g/dL (3.4-5.0); Alkaline Phosphatase 101 U/L (46-116); BUN 18 mg/dL (7-18); Bilirubin, Total 0.9 mg/dL (0.2-1.0); CREATININE 0.8 mg/dL (0.70-1.30); Calcium 10.7 mg/dL (8.5-10.1); Chloride 96 mmol/L (98-107); ETHANOL BLOOD 134.6 mg/dL (<3); Glucose 132 mg/dL (74-106); Potassium 3.4 mmol/L (3.5-5.1); Sodium 136 mmol/L (136-145); Total Protein 8.8 g/dL (6.4-8.2)
[2021-02-16 14:01] LABS: Tricyclic Antidepressants Negative (Negative)
[2021-02-16 14:19] LABS: Acetaminophen < 2 ug/mL (10-30)
[2021-02-16] MEDS: MAGNESIUM SULFATE 8.12 MEQ, MULTIVITAMIN 10 ML, THIAMINE 100 MG, FOLIC ACID 1 MG in Nor... 168.867 MG IV (14:32)
--- NOTE | 2021-02-16 14:39 | CMSP_ITS ---
- If Service Date Differs Date of service: 02/16/21 Time of Service: 14:39 Care Management Safety Plan Status: Voluntary Chief Complaint: Dangelo is a 40 year old man with a long history of substance use and mental health issues. He presents in the ED today reporting suicidal ideation due to increased stressors but denies having a plan. Dangelo has a history of alcohol withdrawal seizures, so he likely will be admitted as he will require close monitoring while he withdraws from alcohol. His toxicology report is positive for Methadone, Amphetamines, and an alcohol level of 134.6. CM will respond to ED to assess patient after patient has been medically cleared and assessed by screener. If screener deems patient meets criteria for psychiatric stabilization CM will facilitate interdepartmental huddle with [facility] screener for safety planning considerations and meet with patient to review [facility] policy and safety plan, establish individual wishes for treatment and maintain patient rights. In the interim; please note safety plan below to guide patient care while awaiting further assessment in the ED. SAFETY PLAN: 1. Will remain on suicide precautions and in paper clothes. 2. Will remain in room under direct supervision of one-on-one staff at all times provided by JAYDEN, RETAIL ASSISTANT STORE MANAGER in classroom tutor. 3. May have paper cups, plates, finger foods as well as a cardboard spoon with which to eat meals. 4. Follow [facility] Management of the Admitted Behavioral Health Patient policy. 5. Personal care: Comfort bath system only at this time. 6. Bathroom privileges: with escort in ED. Available in room without limitation on Med/Surg. 6. No personal belongings at this time; per RN discretion. 7. No visitors at this time. 8. Phone contact limited to legal contact at this time. 9. Activities: Music tablet per RN discretion. Med/Surg: Television and remote available at RN discretion. 10. Due to VOLUNTARY status, if patient wishes to leave [facility], staff will contact [facility] Crisis Screener ([phone]) and On-Call Pier Master Assistant ([phone]) as soon as possible. In the event of elopement, notify [facility] Police ([phone]). If deemed appropriate for inpatient psychiatric care, safety plan will be established with patient, and care team, to adhere to patient goals, identify restrictions based on behavioral status, address nutrition, and determine allowed personal belongings, tools for hygiene and personal care. As well plan will determine level of activity including ambulation, level of supervision, visitors, and determine privileges based on level of acuity, behaviors and level of engagement by patient.
[2021-02-16 15:21] LABS: Source Nasal/Nares
--- NOTE | 2021-02-16 15:29 | HPE_ITS ---
Date of service: 02/16/21 Time of Service: 15:29 Assessment and Plan Assessment and plan (1) Alcohol withdrawal: Status: Acute Assessment and plan: patient was given loading dose of phenobarbital 10 mg/kg (750 mg) in the ER and additional dose of 390 mg IVP after he had been in the ICU for couple hours. Prn doses have been written to include 130 to 260 mg IVP Q30 minutes prn CIWA>8; however, he should not exceed a total cumulative dose of 25 mg/kg or about 1875 mg without first checking a phenobarbital level. An absolute cutoff is 30 mg/kg. He will continue w/ the banana bag started in the ER and after that he will be given daily folic acid, MVI and thiamine;however, if he is unable to take po then he should get daily banana bag of vitamins. He should be referred to a psychiatric facility which can handle both his alcoholism and his depression w/ suicidal thoughts. Qualifiers: Complication of substance-induced condition: with perceptual disturbance Qualified Code(s): F10.232 - Alcohol dependence with withdrawal with perceptual disturbance (2) Suicide ideation: Status: Acute Assessment and plan: as above (3) QT prolongation: Status: Acute Assessment and plan: hold methadone and confirm dose w/ BAART int the a.m. check repeat EKG in the a.m. before giving his methadone. He may require a dose reduction. (4) ADD (attention deficit disorder): Status: Acute Assessment and plan: hold his amphetamines while actively withdrawing Qualifiers: Hyperactivity presence: present Attention deficit-hyperactivity disorder type: predominantly hyperactive Qualified Code(s): F90.1 - Attention- deficit hyperactivity disorder, predominantly hyperactive type (5) Hypertension: Status: Acute Assessment and plan: cont. clonidine. If additional medications are needed, beta patricia may help with the adrenergic drive however this may also mask his withdrawal symptoms. Qualifiers: Hypertension type: essential hypertension Qualified Code(s): I10 - Essential (primary) hypertension (6) Methadone dependence: Status: Acute Assessment and plan: check EKG and confirm his dose w/ BAART in the a.m. (7) Hyperprolactinemia: Status: Acute Assessment and plan: cont. clomiphene (8) Hypogonadism, male: Status: Acute (9) DVT prophylaxis: Status: Acute Assessment and plan: enoxaparin 40 mg SC daily (10) Discharge planning issues: Status: Acute Assessment and plan: mental health to evaluate for transfer to psychiatric facility once he is medically stable. hopefully he can go to a facility that can handle both his alcoholism, methadone dependence and his depression History of Present Illness History of Present Illness Chief Complaint: depression, suicidal ideation, alcohol withdrawal Narrative: This is a 40-year-old white male with a past medical history of anxiety disorder, hypertension, ADD, hyperprolactinemia, hypogonadism, methadone dependence secondary to prior heroin abuse and chronic alcoholism with multiple admissions for detoxification who presented to the emergency department with increased suicidal thoughts for the last 3 weeks. He blames a precipitant event being the break-up with his longstanding girlfriend about 6 weeks ago. He has no specific plans for committing suicide but just thinks that he would be better off . He is scared of committing suicide out of jain concerns. He regularly drinks 1/5 of vodka a day but for the last month he has been drinking a gallon of vodka a day. He has had previous history of alcohol withdrawal with alcoholic withdrawal seizures. He was sent into the emergency department for evaluation by his mental health counselor because of his suicidal ideation. Upon arrival he was anxious and tremulous and tachycardic and diaphoretic. Reportedly he was having visual hallucinations in the ER including seeing a dog running through the ER. His blood alcohol level was 134 on admission. Routine labs include CBC, CMP, TSH as well as drug toxicology screen and blood alcohol level were obtained. CBC was remarkable for macrocytosis but no anemia and no leukocytosis or thrombocytopenia. CMP was remarkable for mildly depressed potassium level 3.4 borderline elevated anion gap of 12 normal renal function and elevated calcium at 10.7 and glucose of 132 as well as elevated transaminases with an AST of 47, ALT 86 but normal total bilirubin of 0.9 and normal albumin level 4.8. TSH was normal at 1.3. Salicylate level was 3.1 and acetaminophen level was less than 2. Treatment in the emergency department consisted of a loading dose of phenobarbital 750 mg which represents a 10 mg/kg IV loading dose. As well as initiation of a banana bag. CIWA scale in the emergency department was 34 and after initial 10 mg/kg loading dose of phenobarbital his CIWA scale was 20 but is gone up to 25 since admission to the intensive care unit. Patient has been given an additional 390 mg of phenobarbital IV. His total allowed cumulative dose is 25 mg/kg which would amount to 1875 mg over the course of his admission. Of note I have not reordered his methadone yet as his cardiac monitor technician suggested prolonged QT interval. An EKG was not done in the ER but has since been obtained and shows sinus rhythm with a prolonged QT corrected interval using Bazett's formula at 546 msec. His EKG will be repeat in the a.m. prior to dosing his methadone. Of note, I did not find any information to suggest QTc prolongation w/ the use of phenobarbital; however, phenobarbital may decrease the serum concentrations of methadone (per drug interaction check w/ UpToDate). Vyvance (an amphetamine he is taking for ADD) may decrease the serum conc entrations of phenobarbital, hence I have witheld his Vyvance which he should not be taking at the moment due to the increased adrenergic drive he is experiencing from his withdrawal. The only other notable drug-drug interaction involving phenobarbital is the possible combined sedative effect of clonidine and phenobarbital can have. However, he should remain on clonidine to avoid rebound hypertensive response from sudden withdrawal of alpha patricia. Mental health will evaluate him once he is through acute alcohol withdrawl. I have given him another dose of phenobarbital 390 mg IVP after arrival d/t his elevated CIWA of 24. Review of Systems Unobtainable due to (patient denies any exposure to COVID-19 or other people w/ COVID-19) Constitutional Constitutional: Reports excessive sweating, Reports fatigue, Reports lethargy, Reports poor appetite and Reports weight loss (25 lb weight loss since his girlfriend of 5 yrs left him about 6 weeks ago) Cardiovascular Cardiovascular: Reports chest pain and Reports rapid heart rate Respiratory Respiratory: Reports system reviewed and no additional complaints, except as documented Gastrointestinal Gastrointestinal: Reports constipation Genitourinary Genitourinary: Reports system reviewed and no additional complaints, except as documented and Reports change in libido Musculoskeletal Musculoskeletal: Reports muscle cramps Integumentary/Breasts Skin/Breast: Reports breast skin changes (gynecomastia) Neurologic Neurologic: Reports system reviewed and no additional complaints, except as documented Psychiatric Psychiatric: Reports change in appetite, Reports change in libido, Reports depression, Reports difficulty concentrating, Reports irritability, Reports mood swings, Reports hallucinations, Denies homicidal ideation and Reports suicidal ideation Endocrine Endocrine: Reports change in libido, Reports excessive sweating and Reports fatigue Hematologic/Lymphatic Hematologic/Lymphatic: Reports system reviewed and no additional complaints, except as documented Allergic/Immunologic Allergic/Immunologic: Reports system reviewed and no additional complaints, except as documented PFSH Medical History ADD (attention deficit disorder) Anxiety (09/05/17) Hypertension Internal derangement of left knee Methadone dependence (04/01/18) Family History Mother Diabetes Father Diabetes Essential hypertension Brother No problems noted. Brother No problems noted. Grandfather No problems noted. Grandfather No problems noted. Grandmother No problems noted. Grandmother No problems noted. Daughter No problems noted. Social History Smoking/Tobacco Use Status: Current every day Tobacco Type: cigarettes Smoking risk assessment performed?: Yes Alcohol Intake: current Alcohol Intake frequency: 3 or more drinks per day Alcohol type: hard liquor Drug use: Never Substance use type: former substance user Details: 02/16/21-States drinks 1/2 gallon vodka daily. Current gender identity: male Do you feel safe at home: Yes Do you feel safe in your relationship?: Yes Meds Allergies and Home Medications Allergies Allergy/AdvReac Type Severity Reaction Status Date / Time No Known Allergies Allergy Verified 02/16/21 12:21 Home Medications Medication Instructions Recorded Confirmed Type methadone 105 mg PO DAILY ml 09/05/17 02/16/21 History disulfiram 250 mg tablet 250 mg PO DAILY #30 tab 05/23/20 05/23/20 Rx sildenafil (pulm.hypertension) 20 50 mg PO qd prn 30 Days #60 tab-cap 08/28/20 Rx mg tablet clonidine HCl 0.1 mg tablet 0.1 mg PO BID #60 tab 11/02/20 02/16/21 Rx lisdexamfetamine 60 mg capsule 60 mg PO QAM #30 cap MDD 60 02/13/21 02/16/21 Rx clomiphene citrate 50 mg PO .qod 02/16/21 02/16/21 History Exam Narrative Exam Narrative: young white very irritable, anxious, diaphoretic w/ tremulous hands, he is alert and oriented person/place/circumstance HEENT: blood shot eyes, no icterus, otherwise unremarkable neck: no LN, normal pulses but tachycardic, no thyromegaly Lungs: clear Heart: tachycardic but regular, no murmur or rub or thrill Abdomen: soft, nondistended, no organomegaly Extremities: diaphoretic and tremulous Neuro: no focal CN deficit, no focal motor deficits Psychiatric: anxious, tremulous, expressing suicidal thoughts but no clear plan, just wishes that he were . Results Labs Result diagrams: 02/16/21 12:50 02/16/21 12:50 Labs: Laboratory Results - last 24 hr 02/16/21 02/16/21 02/16/21 12:50 12:50 12:50 WBC 10.65 RBC 4.45 Hgb 15.9 Hct 45.8 MCV 102.9 H MCH 35.7 H MCHC 34.7 RDW 11.7 L Plt Count 159 MPV 10.1 Immature Gran % 0.4 Neutrophils % 85.6 Lymphocytes % 7.1 Monocytes % 6.5 Eosinophils % 0.0 Basophils % 0.4 Nucleated RBC % 0 Absolute Neutrophils 9.12 H Absolute Lymphocytes 0.76 L Absolute Monocytes 0.69 Absolute Eosinophils 0.00 Absolute Basophils 0.04 Sodium 136 Potassium 3.4 L Chloride 96 L Carbon Dioxide 28.0 Anion Gap 12.0 H BUN 18 Creatinine 0.8 Estimated GFR/1.73 m2 >= 60.00 Glucose 132 H Calcium 10.7 H Total Bilirubin 0.9 AST 47 H ALT 86 H Alkaline Phosphatase 101 Total Protein 8.8 H Albumin 4.8 TSH 1.30 Urine Color Urine Clarity Urine pH Ur Specific [place] Urine Protein Urine Ketones Urine Blood Urine Nitrite Urine Bilirubin Urine Urobilinogen Ur Leukocyte Esterase Urine RBC Urine WBC Ur Epithelial Cells Urine Crystals Urine Bacteria Urine Casts Urine Mucus Ur Culture Indicated? Urine Glucose Salicylates 3.1 Urine Opiates Screen Urine Methadone Screen Acetaminophen < 2 Ur Barbiturates Screen Ur Tricyclics Screen Ur Amphetamines Screen U Benzodiazepines Scrn Urine Cocaine Screen Ur THC Screen Ethyl Alcohol 134.6 COVID-19 Source 02/16/21 02/16/21 02/16/21 13:20 13:20 15:15 WBC RBC Hgb Hct MCV MCH MCHC RDW Plt Count MPV Immature Gran % Neutrophils % Lymphocytes % Monocytes % Eosinophils % Basophils % Nucleated RBC % Absolute Neutrophils Absolute Lymphocytes Absolute Monocytes Absolute Eosinophils Absolute Basophils Sodium Potassium Chloride Carbon Dioxide Anion Gap BUN Creatinine Estimated GFR/1.73 m2 Glucose Calcium Total Bilirubin AST ALT Alkaline Phosphatase Total Protein Albumin TSH Urine Color Yellow Urine Clarity Clear Urine pH 6.5 Ur Specific [place] 1.015 Urine Protein 100 H Urine Ketones Negative Urine Blood Trace-lysed H Urine Nitrite Negative Urine Bilirubin Negative Urine Urobilinogen 0.2 Ur Leukocyte Esterase Negative Urine RBC 3-5 H Urine WBC 0-2 Ur Epithelial Cells Few Urine Crystals Negative Urine Bacteria Rare Urine Casts 0-2 fine granular Urine Mucus Negative Ur Culture Indicated? No Urine Glucose Negative Salicylates Urine Opiates Screen Negative Urine Methadone Screen Positive A Acetaminophen Ur Barbiturates Screen Negative Ur Tricyclics Screen Negative Ur Amphetamines Screen Positive A U Benzodiazepines Scrn Negative Urine Cocaine Screen Negative Ur THC Screen Negative Ethyl Alcohol COVID-19 Source Nasal/nares Last Vital Signs Temp 36.7 C 02/16/21 12:10 Pulse 85 02/16/21 14:31 Resp 12 02/16/21 14:31 BP 130/82 02/16/21 14:31 Pulse Ox 94 02/16/21 14:31 COVID-19 Screening Have you, or household traveled for leisure in last 14 days?: No Had IN PERSON contact w/suspected or confirmed C-19 person: No
[2021-02-16 15:41] LABS: Magnesium 1.8 mg/dL (1.8-2.4)
[2021-02-16] MEDS: PHENobarbital 130 MG/ML VIAL IVP ×2 (16:31→20:56)
--- NOTE | 2021-02-16 17:30 | RT.EKG_ITS ---
APPROVED REPORT Exam: Resting ECG Patient Location: I HR:85 bpm ECG Measurements Heart Rate 85 AXIS ND 128 P 81 QRSd 99 QRS 30 QT 458 T -3 QTc 546 Conclusion Sinus rhythm...normal P axis, V-rate 60- 99 Prolonged QT interval...QTc >500mS
[2021-02-16] MEDS: Acetaminophen 325 MG TAB 650 MG PO (17:53)
[2021-02-16] MEDS: PHENobarbital 130 MG/ML VIAL 390 MG IVP (17:55)
[2021-02-16] MEDS: Enoxaparin 40 MG/0.4 ML SYR SC (17:56)
[2021-02-16 18:34] LABS: COVID-19 PCR Negative (Negative)
[2021-02-16] MEDS: Normal Saline Flush 10 ML SYR (19:29)
[2021-02-16] MEDS: Pantoprazole 40 MG VIAL IVP (19:29)
[2021-02-16] MEDS: cloNIDine 0.1 MG TAB PO (19:30)
[2021-02-16 20:39] LABS: Folate 5.1 ng/mL (8.6-20.0); Vitamin B12 1048 pg/mL (193-986)
[2021-02-17] VITALS (27 sets, daily range): BP systolic 137–151; BP diastolic 70–102; PULSE 60–89; RESP 11–18; TEMP 36.1–37.5; O2SAT 96–98
[2021-02-17] MEDS: PHENobarbital 130 MG/ML VIAL IVP ×2 (01:10→05:18)
[2021-02-17 06:57] LABS: Abs Immature Grans 0.01 10^3/uL (0.0-0.06); Absolute Basophil Count 0.03 10^3/uL (0.0-0.2); Absolute Eosinophil Count 0.12 10^3/uL (0.0-0.7); Absolute Lymphocyte Count 1.57 10^3/uL (1.2-3.4); Absolute Monocyte Count 0.62 10^3/uL (0.1-0.8); Basophils % 0.6; Eosinophils % 2.4; HCT 40.6 % (40.0-50.0); HGB 13.8 g/dL (13.5-17.5); Immature Grans % 0.2; Lymphocytes % 31.1; MCH 35.4 pg (27.0-33.0); MCV 104.1 fL (80-95); MPV 10.2 fL (8.0-11.0); Monocytes % 12.3; Neutrophils % 53.4; Nucleated RBC 0 %; RDW 11.7 % (11.8-14.1); RDW-SD 45.2 fL; WBC 5.05 10^3/uL (4.4-10.8)
--- NOTE | 2021-02-17 07:00 | RT.EKG_ITS ---
APPROVED REPORT Exam: Resting ECG Patient Location: I HR:66 bpm ECG Measurements Heart Rate 66 AXIS MO 130 P 41 QRSd 98 QRS 29 QT 500 T 11 QTc 522 Conclusion Sinus rhythm...normal P axis, V-rate 60- 99 Prolonged QT interval...QTc >500mS
[2021-02-17 07:12] LABS: PHOSPHORUS 3.1 mg/dL (2.6-4.7)
[2021-02-17 07:13] LABS: ALT 53 U/L (16-63); AST 28 U/L (15-37); Albumin 3.2 g/dL (3.4-5.0); Alkaline Phosphatase 75 U/L (46-116); Anion Gap 4.4 mmol/L (3-11); BUN 14 mg/dL (7-18); Bilirubin, Total 0.8 mg/dL (0.2-1.0); CO2 31.6 mmol/L (21.0-32.0); CREATININE 0.7 mg/dL (0.70-1.30); Calcium 9.2 mg/dL (8.5-10.1); Chloride 106 mmol/L (98-107); Glucose 122 mg/dL (74-106); Magnesium 1.8 mg/dL (1.8-2.4); Potassium 3.6 mmol/L (3.5-5.1); Sodium 142 mmol/L (136-145); Total Protein 6.2 g/dL (6.4-8.2)
[2021-02-17 07:24] LABS: Diff Comment Agrees w/ Instrument; Platelet Count 101 10^3/uL (130-400)
[2021-02-17 07:25] LABS: Macrocytosis 1+
[2021-02-17 07:41] LABS: PHENOBARBITAL 43.3 ug/mL (15.0-40.0)
--- NOTE | 2021-02-17 08:30 | W.PM.PROGNOT ---
Date of Service Date of service: 02/17/21 Time of Service: 14:01 Assessment and Plan Assessment and plan (1) Alcohol withdrawal: Status: Acute Assessment and plan: Maxed out on phenobarbital. Will manage delirium with antipsychotics should it occur. Monitor in the ICU for the remainder of the day. Qualifiers: Complication of substance-induced condition: with perceptual disturbance Qualified Code(s): F10.232 - Alcohol dependence with withdrawal with perceptual disturbance (2) Suicide ideation: Status: Acute Assessment and plan: In setting of substance intoxication. Will need to be re-evaluated by mental health once withdrawal symptoms are controlled. (3) QT prolongation: Status: Resolved Assessment and plan: Resume methadone (4) ADD (attention deficit disorder): Status: Acute Assessment and plan: Consider resuming amphetamines Qualifiers: Hyperactivity presence: present Attention deficit-hyperactivity disorder type: predominantly hyperactive Qualified Code(s): F90.1 - Attention-deficit hyperactivity disorder, predominantly hyperactive type (5) Hypertension: Status: Acute Assessment and plan: BP now controlled. Continue clonidine. Qualifiers: Hypertension type: essential hypertension Qualified Code(s): I10 - Essential (primary) hypertension (6) Methadone dependence: Status: Resolved Assessment and plan: Resolved. Resumed methadone. Monitor on tele. (7) Hyperprolactinemia: Status: Acute Assessment and plan: Continue clomiphene (8) Hypogonadism, male: Status: Acute Assessment and plan: As above (9) DVT prophylaxis: Status: Acute Assessment and plan: enoxaparin SC (10) Discharge planning issues: Status: Acute Assessment and plan: mental health to evaluate once he is medically stable. Subjective Subjective Interval history since last seen: Mr Pineda stated he is not feeling well. He felt sweaty and hot. He thought maybe he was feeling this way because he was withdrawing from methadone too. He denied dizziness, chest pain, shortness of breath, nausea. He was cooperative, coherent, not hallucinating when I saw him around lunch time. Maxed out of phenobarb. CIWA 10 (anxious, sweaty, photosensitive, sounds are bothering him; not hallucinating, slightly tremulous) this morning. 12-18 overnight. Last dose of phenobarbital was at 5:30. Asleep this am, awake now. QTc 0.47. Exam Narrative Exam Narrative: General: pleasant though irritable middle-aged male, A&Ox3, minimally tremulous, cooperative, appears comfortable HEENT: EOMI, MMM Heart: RRR, no m/r/g Lungs: CTAB Abdomen: soft, nontender, nondistended Extremities: no edema BLE's Objective Last Vital Signs Temp 36.1 C L 02/17/21 07:47 Pulse 61 02/17/21 08:00 Resp 13 02/17/21 08:00 BP 141/91 H 02/17/21 07:47 Pulse Ox 96 02/17/21 08:00 Laboratory Results - last 24 hr 02/16/21 02/16/21 02/16/21 12:50 12:50 12:50 WBC 10.65 RBC 4.45 Hgb 15.9 Hct 45.8 MCV 102.9 H MCH 35.7 H MCHC 34.7 RDW 11.7 L Plt Count 159 MPV 10.1 Immature Gran % 0.4 Neutrophils % 85.6 Lymphocytes % 7.1 Monocytes % 6.5 Eosinophils % 0.0 Basophils % 0.4 Nucleated RBC % 0 Absolute Neutrophils 9.12 H Absolute Lymphocytes 0.76 L Absolute Monocytes 0.69 Absolute Eosinophils 0.00 Absolute Basophils 0.04 RBC Morphology Macrocytosis Sodium 136 Potassium 3.4 L Chloride 96 L Carbon Dioxide 28.0 Anion Gap 12.0 H BUN 18 Creatinine 0.8 Estimated GFR/1.73 m2 >= 60.00 Glucose 132 H Calcium 10.7 H Phosphorus Magnesium Total Bilirubin 0.9 AST 47 H ALT 86 H Alkaline Phosphatase 101 Total Protein 8.8 H Albumin 4.8 Vitamin B12 Folate TSH 1.30 Urine Color Urine Clarity Urine pH Ur Specific [place] Urine Protein Urine Ketones Urine Blood Urine Nitrite Urine Bilirubin Urine Urobilinogen Ur Leukocyte Esterase Urine RBC Urine WBC Ur Epithelial Cells Urine Crystals Urine Bacteria Urine Casts Urine Mucus Ur Culture Indicated? Urine Glucose Salicylates 3.1 Urine Opiates Screen Urine Methadone Screen Acetaminophen < 2 Ur Barbiturates Screen Ur Tricyclics Screen Ur Amphetamines Screen Phenobarbital U Benzodiazepines Scrn Urine Cocaine Screen Ur THC Screen Ethyl Alcohol 134.6 COVID-19 Source SARS-CoV-2 (PCR) 02/16/21 02/16/21 02/16/21 12:50 12:50 13:20 WBC RBC Hgb Hct MCV MCH MCHC RDW Plt Count MPV Immature Gran % Neutrophils % Lymphocytes % Monocytes % Eosinophils % Basophils % Nucleated RBC % Absolute Neutrophils Absolute Lymphocytes Absolute Monocytes Absolute Eosinophils Absolute Basophils RBC Morphology Macrocytosis Sodium Potassium Chloride Carbon Dioxide Anion Gap BUN Creatinine Estimated GFR/1.73 m2 Glucose Calcium Phosphorus Magnesium 1.8 Total Bilirubin AST ALT Alkaline Phosphatase Total Protein Albumin Vitamin B12 1048 H Folate 5.1 L TSH Urine Color Urine Clarity Urine pH Ur Specific [place] Urine Protein Urine Ketones Urine Blood Urine Nitrite Urine Bilirubin Urine Urobilinogen Ur Leukocyte Esterase Urine RBC Urine WBC Ur Epithelial Cells Urine Crystals Urine Bacteria Urine Casts Urine Mucus Ur Culture Indicated? Urine Glucose Salicylates Urine Opiates Screen Negative Urine Methadone Screen Positive A Acetaminophen Ur Barbiturates Screen Negative Ur Tricyclics Screen Negative Ur Amphetamines Screen Positive A Phenobarbital U Benzodiazepines Scrn Negative Urine Cocaine Screen Negative Ur THC Screen Negative Ethyl Alcohol COVID-19 Source SARS-CoV-2 (PCR) 02/16/21 02/16/21 02/17/21 13:20 15:15 06:21 WBC 5.05 D RBC 3.90 L Hgb 13.8 D Hct 40.6 MCV 104.1 H MCH 35.4 H MCHC 34.0 RDW 11.7 L Plt Count 101 L MPV 10.2 Immature Gran % 0.2 Neutrophils % 53.4 Lymphocytes % 31.1 Monocytes % 12.3 Eosinophils % 2.4 Basophils % 0.6 Nucleated RBC % 0 Absolute Neutrophils 2.70 Absolute Lymphocytes 1.57 Absolute Monocytes 0.62 Absolute Eosinophils 0.12 Absolute Basophils 0.03 RBC Morphology See below Macrocytosis 1+ Sodium Potassium Chloride Carbon Dioxide Anion Gap BUN Creatinine Estimated GFR/1.73 m2 Glucose Calcium Phosphorus Magnesium Total Bilirubin AST ALT Alkaline Phosphatase Total Protein Albumin Vitamin B12 Folate TSH Urine Color Yellow Urine Clarity Clear Urine pH 6.5 Ur Specific [place] 1.015 Urine Protein 100 H Urine Ketones Negative Urine Blood Trace-lysed H Urine Nitrite Negative Urine Bilirubin Negative Urine Urobilinogen 0.2 Ur Leukocyte Esterase Negative Urine RBC 3-5 H Urine WBC 0-2 Ur Epithelial Cells Few Urine Crystals Negative Urine Bacteria Rare Urine Casts 0-2 fine granular Urine Mucus Negative Ur Culture Indicated? No Urine Glucose Negative Salicylates Urine Opiates Screen Urine Methadone Screen Acetaminophen Ur Barbiturates Screen Ur Tricyclics Screen Ur Amphetamines Screen Phenobarbital U Benzodiazepines Scrn Urine Cocaine Screen Ur THC Screen Ethyl Alcohol COVID-19 Source Nasal/nares SARS-CoV-2 (PCR) Negative 02/17/21 02/17/21 02/17/21 06:25 06:25 06:30 WBC RBC Hgb Hct MCV MCH MCHC RDW Plt Count MPV Immature Gran % Neutrophils % Lymphocytes % Monocytes % Eosinophils % Basophils % Nucleated RBC % Absolute Neutrophils Absolute Lymphocytes Absolute Monocytes Absolute Eosinophils Absolute Basophils RBC Morphology Macrocytosis Sodium 142 Potassium 3.6 Chloride 106 Carbon Dioxide 31.6 Anion Gap 4.4 BUN 14 Creatinine 0.7 Estimated GFR/1.73 m2 >= 60.00 Glucose 122 H Calcium 9.2 Phosphorus 3.1 Magnesium 1.8 Total Bilirubin 0.8 AST 28 ALT 53 Alkaline Phosphatase 75 Total Protein 6.2 L Albumin 3.2 L Vitamin B12 Folate TSH Urine Color Urine Clarity Urine pH Ur Specific [place] Urine Protein Urine Ketones Urine Blood Urine Nitrite Urine Bilirubin Urine Urobilinogen Ur Leukocyte Esterase Urine RBC Urine WBC Ur Epithelial Cells Urine Crystals Urine Bacteria Urine Casts Urine Mucus Ur Culture Indicated? Urine Glucose Salicylates Urine Opiates Screen Urine Methadone Screen Acetaminophen Ur Barbiturates Screen Ur Tricyclics Screen Ur Amphetamines Screen Phenobarbital 43.3 H U Benzodiazepines Scrn Urine Cocaine Screen Ur THC Screen Ethyl Alcohol COVID-19 Source SARS-CoV-2 (PCR)
[2021-02-17] MEDS: Multivitamin TAB 1 TAB PO (08:46)
[2021-02-17] MEDS: Thiamine 100 MG TAB PO (08:47)
[2021-02-17] MEDS: Folic Acid 1 MG TAB PO (08:47)
[2021-02-17] MEDS: cloNIDine 0.1 MG TAB PO ×3 (08:47→20:36)
[2021-02-17] MEDS: Pantoprazole 40 MG VIAL IVP (08:48)
[2021-02-17] MEDS: Normal Saline Flush 10 ML SYR (09:21)
[2021-02-17] MEDS: Acetaminophen 325 MG TAB PO (12:13)
[2021-02-17] MEDS: Methadone Liquid 10 MG/ML 105 MG PO (13:12)
--- NOTE | 2021-02-17 14:16 | PHA.REVIEW ---
Pharmacy Admission Review - Admission Clinical Review (Last Reviewed 02/16/21 @ 18:52 by Gabo Logan) Discharge planning issues (Acute) DVT prophylaxis (Acute) QT prolongation (Acute) Suicide ideation (Acute) ADD (attention deficit disorder) (Acute) Hypertension (Acute) Methadone dependence (Acute 04/01/18) Hypogonadism, male (Acute 03/24/18) Hyperprolactinemia (Acute 04/15/18) Alcohol withdrawal (Acute 11/13/13) No Known Allergies Allergy (Verified 02/16/21 12:21) Height 5 ft 8 in Weight 74.2 kg - Renal Dosing Renal Dosing: BUN 14 mg/dL (7-18) 02/17/21 06:25 Creatinine 0.7 mg/dL (0.70-1.30) 02/17/21 06:25 Medications needing adjustments: Reviewed - Anticoagulation Anticoagulation: Hgb 13.8 g/dL (13.5-17.5) D 02/17/21 06:21 Hct 40.6 % (40.0-50.0) 02/17/21 06:21 Plt Count 101 10^3/uL (130-400) L 02/17/21 06:21 Creatinine 0.7 mg/dL (0.70-1.30) 02/17/21 06:25 DVT Prohphylaxis: Reviewed Medications: Enoxaparin Therapeutic Anticoagulation: N/A - Relevant Labs Sodium 142 mmol/L (136-145) 02/17/21 06:25 Potassium 3.6 mmol/L (3.5-5.1) 02/17/21 06:25 Chloride 106 mmol/L (98-107) 02/17/21 06:25 Phosphorus 3.1 mg/dL (2.6-4.7) 02/17/21 06:25 Magnesium 1.8 mg/dL (1.8-2.4) 02/17/21 06:25 - DM Control DM Control: Glucose 122 mg/dL (74-106) H 02/17/21 06:25 - BP Control BP Control: Blood Pressure [Left Arm] 142/102 Blood Pressure 144/98 Blood Pressure 141/91 - Home Meds Home Med List reviewed: Reviewed (verified methadone dose with [facility]. called [facility] to verify other meds and notified MD) - Current meds Current Medication Order Review: Reviewed (phenobarb at max dosing (MDA). now stopped)
--- NOTE | 2021-02-17 15:26 | NUR.NOTE ---
Addendum entered by Syeda Stuart 02/17/21 16:45: Reported to DR Gonzales and med on hold in [facility] now Original Note: Spoke to Missael Dhillon [facility] telepharmacy and based on large drop in plt count he recommends holding Lovenox today and have pharmacy review tomorrow
--- NOTE | 2021-02-17 15:35 | INITIAL_ITS ---
- If Service Date Differs Date of service: 02/17/21 Time of Service: 15:35 Care Management Initial Assess REASON FOR HOSPITALIZATION:: Alcohol Withdrawal, SI PAST MEDICAL HISTORY/PAST SURGICAL HISTORY:: Medical History. ADD (attention deficit disorder). Anxiety (09/05/17). Hypertension. Internal derangement of left knee. Methadone dependence (04/01/18) PREVIOUS FUNCTIONAL STATUS/SOCIAL/FAMILY SUPPORTS:: Dangelo lives in [facility] with his father. He is from his . They have one child named Elizabeth, who per report, is 14 years old. Dangelo did not engage with this freelance copywriter, this information is obtained through chart review. He is independent at baseline. CURRENT FUNCTIONAL STATUS:: Dangelo was lying in bed when CM met with him. He stated that he did not wish to talk to CM about his personal life. He reported that he didn't need discharge planning, as [facility] [place] [facility] [place] [facility] as he is out of the hospital. CM is unaware of the details regarding this, and Dangelo did not offer any additional information. CM explained that he is here for both alcohol withdrawal, and for SI, which he reported in the ED. He denied SI/HI. He will be screened by [facility] once he is medically cleared. CM will continue to follow. ADVANCE DIRECTIVES:: None on file. Has patient been provided with info about the portal/API?: Yes Did the patient sign up for the portal?: Yes (previously signed up) CODE STATUS:: Full Code INSURANCE COVERAGE / FINANCIAL ISSUES:: DEZ CURRENT HOME/COMMUNITY SERVICES/EQUIPMENT:: No current services or equipment. PRIMARY CARE PHYSICIAN:: Tomi Dao POTENTIAL DISCHARGE NEEDS:: Resources for alcohol cessation, follow up appointments. PATIENT/FAMILY EDUCATION NEEDS:: Review discharge instructions regarding community resources and medications, discussion of self care needs and goals of care. ANTICIPATED BARRIERS TO DISCHARGE:: Dangelo will need to be screened by [facility] prior to discharge. TRANSPORTATION:: Via private vehicle by family. PLAN:: Dangelo continues to be monitored at ICU level of care. Once he is medically cleared he will be screened by [facility]. His discharge plan will be determined by that screening. He will either pursue hospitalization vs home with support from [facility] outpatient. Transportation to be detemined by discharge. He will follow up with his PCP and discharge plan of care. CM will continue.
--- NOTE | 2021-02-17 16:25 | PDOC.CMSAFE ---
- If Service Date Differs Date of service: 02/17/21 Time of Service: 16:25 Care Management Safety Plan Status: Voluntary Chief Complaint: Dangelo is a 40 year old man with a long history of substance use and mental health issues. He presented in the ED reporting suicidal ideation due to increased stressors but denies having a plan. Dangelo has a history of alcohol withdrawal seizures, so he was admitted as he will require close monitoring while he withdraws from alcohol. His toxicology report is positive for Methadone, Amphetamines, and an alcohol level of 134.6. Dangelo continues to be monitored for alcohol w/d. He has not yet been medically cleared. CM will respond to ED to assess patient after patient has been medically cleared and assessed by screener. If screener deems patient meets criteria for psychiatric stabilization CM will facilitate interdepartmental huddle with [facility] screener for safety planning considerations and meet with patient to review [facility] policy and safety plan, establish individual wishes for treatment and maintain patient rights. In the interim; please note safety plan below to guide patient care while awaiting further assessment. SAFETY PLAN: 1. Will remain on suicide precautions and in paper clothes. 2. Will remain in room under direct supervision of one-on-one staff at all times provided by JAYDEN, DIRECTOR OF SPECIAL EVENTS refrigerator crater. 3. May have paper cups, plates, finger foods as well as a cardboard spoon with which to eat meals. 4. Follow [facility] Management of the Admitted Behavioral Health Patient policy. 5. Personal care: Comfort bath system or shower, at RN discretion. 6. Bathroom privileges: Available in room without limitation on Med/Surg. 6. No personal belongings at this time; per RN discretion. 7. No visitors at this time. 8. Phone contact limited to legal contact at this time. At RN discretion, Dangelo may use his own phone if behavior continues to be appropriate. 9. Activities: Music tablet per RN discretion. Med/Surg: Television and remote available at RN discretion. 10. Due to VOLUNTARY status, if patient wishes to leave [facility], staff will contact [facility] Crisis Screener ([phone]) and On-Call Agriculture Laboratory Technician ([phone]) as soon as possible. In the event of elopement, notify [facility] Police ([phone]). If deemed appropriate for inpatient psychiatric care, safety plan will be established with patient, and care team, to adhere to patient goals, identify restrictions based on behavioral status, address nutrition, and determine allowed personal belongings, tools for hygiene and personal care. As well plan will determine level of activity including ambulation, level of supervision, visitors, and determine privileges based on level of acuity, behaviors and level of engagement by patient.
[2021-02-17] MEDS: QUEtiapine 25 MG TAB PO (16:28)
[2021-02-17] MEDS: Nicotine 21 MG/24 HR PATCH TD (16:28)
--- NOTE | 2021-02-17 19:31 | NUR.NOTE ---
Adnrey (pt's father) and female voice in background of phone (identified by Andrey as pt's mother) called stating they just returned home from being away and heard a voicemail asking them to call ICU. Verified that Andrey was on HIPAA. Andrey states that pt is a heavy drinker and will lose interest in sobriety/rehab once he is thru detox. Asks us to make every attempt to guide pt toward counseling/rehab. Reassured them that offering rehab and outpt follow up is part of our process. Reported that pt is in ICU d/t acuity but that he is doing well at this time. request made by parents that RN pass on message we are thinking of you. Andrey's number is in our chart - they ask to be updated if any change in condition happens or if any info is needed for treatment/discharge planning. Nursing Note:
[2021-02-18] VITALS (12 sets, daily range): BP systolic 140–148; BP diastolic 90–100; PULSE 59–79; RESP 15–23; TEMP 36–36.1; O2SAT 97–98
[2021-02-18] MEDS: cloNIDine 0.1 MG TAB PO ×3 (00:08→08:02)
[2021-02-18] MEDS: QUEtiapine 25 MG TAB PO ×2 (00:55→06:37)
[2021-02-18] MEDS: Acetaminophen 325 MG TAB PO (03:23)
[2021-02-18] MEDS: Ibuprofen 600 MG TAB PO (05:18)
[2021-02-18 07:06] LABS: Abs Immature Grans 0.02 10^3/uL (0.0-0.06); Absolute Basophil Count 0.03 10^3/uL (0.0-0.2); Absolute Eosinophil Count 0.15 10^3/uL (0.0-0.7); Absolute Lymphocyte Count 1.29 10^3/uL (1.2-3.4); Absolute Monocyte Count 0.51 10^3/uL (0.1-0.8); Absolute Neutrophil Count 4.52 10^3/uL (1.2-6.7); Basophils % 0.5; Eosinophils % 2.3; HCT 42.7 % (40.0-50.0); HGB 14.5 g/dL (13.5-17.5); Immature Grans % 0.3; Lymphocytes % 19.8; MCH 35.3 pg (27.0-33.0); MCV 103.9 fL (80-95); MPV 10.3 fL (8.0-11.0); Monocytes % 7.8; Neutrophils % 69.3; Nucleated RBC 0 %; Platelet Count 110 10^3/uL (130-400); RBC 4.11 10^6/uL (4.36-5.78); RDW 11.5 % (11.8-14.1); RDW-SD 44.3 fL; WBC 6.52 10^3/uL (4.4-10.8)
[2021-02-18 07:15] LABS: Anion Gap 8.2 mmol/L (3-11); BUN 13 mg/dL (7-18); CO2 28.8 mmol/L (21.0-32.0); CREATININE 0.7 mg/dL (0.70-1.30); Calcium 9.2 mg/dL (8.5-10.1); Chloride 106 mmol/L (98-107); Glucose 124 mg/dL (74-106); Magnesium 2.1 mg/dL (1.8-2.4); Potassium 3.6 mmol/L (3.5-5.1); Sodium 143 mmol/L (136-145)
[2021-02-18 07:20] LABS: PHENOBARBITAL 40.3 ug/mL (15.0-40.0)
--- NOTE | 2021-02-18 07:53 | NUR.NOTE ---
Nursing Note: Anni Barraza from [facility] visited with patient and let this life underwriter know that he no longer has suicidal ideation and is cleared from a mental health standpoint. Dr. Gonzales and case management notified.
[2021-02-18] MEDS: Thiamine 100 MG TAB PO (08:02)
[2021-02-18] MEDS: Folic Acid 1 MG TAB PO (08:02)
[2021-02-18] MEDS: Multivitamin TAB 1 TAB PO (08:02)
[2021-02-18] MEDS: Methadone Liquid 10 MG/ML 105 MG PO (08:03)
--- NOTE | 2021-02-18 08:10 | W.PM.PROGNOT ---
Date of Service Date of service: 02/18/21 Time of Service: 15:34 Subjective Subjective Interval history since last seen: Cleared by mental health. Does not need a sitter anymore, per mental health. Escalated this am, requiring seroquel and clonidine. Now more calm. Also got seroquel yesterday afternoon. C/o aches/pains - got tylenol, ibuprofen. Objective Last Vital Signs Temp 36.1 C L 02/18/21 04:43 Pulse 70 02/18/21 04:43 Resp 15 02/18/21 05:00 BP 148/100 H 02/18/21 04:43 Pulse Ox 97 02/18/21 04:43 Laboratory Results - last 24 hr 02/18/21 02/18/21 02/18/21 06:10 06:10 06:10 WBC 6.52 RBC 4.11 L Hgb 14.5 Hct 42.7 MCV 103.9 H MCH 35.3 H MCHC 34.0 RDW 11.5 L Plt Count 110 L MPV 10.3 Immature Gran % 0.3 Neutrophils % 69.3 Lymphocytes % 19.8 Monocytes % 7.8 Eosinophils % 2.3 Basophils % 0.5 Nucleated RBC % 0 Absolute Neutrophils 4.52 Absolute Lymphocytes 1.29 Absolute Monocytes 0.51 Absolute Eosinophils 0.15 Absolute Basophils 0.03 Sodium 143 Potassium 3.6 Chloride 106 Carbon Dioxide 28.8 Anion Gap 8.2 BUN 13 Creatinine 0.7 Estimated GFR/1.73 m2 >= 60.00 Glucose 124 H Calcium 9.2 Magnesium 2.1 Phenobarbital 40.3 H
[2021-02-18] MEDS: Normal Saline Flush 10 ML SYR (09:43)
--- NOTE | 2021-02-18 11:47 | CMDISCH_ITS ---
- If Service Date Differs Date of service: 02/18/21 Time of Service: 11:47 LACE Index Scoring Tool - Questions: Length of Stay (in days): 2 Acuity (Admit via E.D.?): Yes E.D. Visits: 2 - Answers: Total Score: 7 Risk of Readmission: Low Risk Care Management Discharge Reason for Hospitalization: Alcohol Withdrawal, SI Discharge Plan: Dangelo left AMA this morning. He was screened by MAULIK London, who cleared him from suicide precautions, as he reported no SI/HI. CM informed the Grain Elevator Superintendent that he was leaving, as there is an active warrant for his arrest. He called a friend for a ride via private vehicle. MD and RN discussed the risks of him leaving against medical advice, and he chose to leave regardless. Patient/Family Education Needs: Discuss risks of leaving against medical advice, discussion of self care needs.
--- NOTE | 2021-02-18 15:34 | DSE_ITS ---
Date of service: 02/18/21 Time of Service: 15:35 DS: Diagnosis Discharge Diagnosis (1) Alcohol withdrawal: Status: Acute (2) Suicide ideation: Status: Resolved Asessment and Plan: cleared by mental health (3) QT prolongation: Status: Resolved (4) ADD (attention deficit disorder): Status: Chronic (5) Hypertension: Status: Chronic (6) Methadone dependence: Status: Chronic (7) Hyperprolactinemia: Status: Chronic (8) Hypogonadism, male: Status: Chronic (9) COVID-19 ruled out by laboratory testing: Status: Ruled-out Discharge Plan Disposition Patient Disposition: AGAINST MEDICAL ADVICE Condition: Fair Discharge Details Reason For Visit: ALCOHOL WITHDRAWL, SUICIDAL IDEATION Admit Date/Time: 02/16/21 14:41 Admit Provider: Gabo Logan Attending Provider: Gabo Logan Primary Care Provider: Tomi Dao [facility] Hospital Course: Mr Pineda is a 40 year old male with PMHx of alcohol abuse, opioid depedence on methadone through [facility], ADD, and medical noncompliance, who was admitted to [facility] ICU on 02/16/21 with acute alcohol withdrawal as well as suicidal ideation in setting of alcohol intoxication. He also had QT prolongation at that time, but this resolved by 24 hour sarabjit in the hospital, and the patient was able to get his methadone. The patient was treated with phenobrabital in the ICU for his alcohol withdrawal, and the dose of phenobarbital was maxed out. By hospital day 3, the patient was still have mild symptoms of alcohol withdrawal, but was A&Ox3 and able to make his decisions. He was evaluated by mental health, who cleared him for discharge home with [facility] follow up. From the stand point of alcohol withdrawal, the patient was not yet medically cleared. He left AMA despite my counseling him that untreated alcohol withdrawal could result in seizure and/or . He verbalized understanding. He wanted to go home, however, because that's where he would be more comfortable. Care for patient as well as completion of his discharge summary on day he left AMA (today) took 45 minutes. Home Meds and New Rx's Prescriptions: No Action disulfiram [Antabuse] 250 mg tablet 250 mg PO DAILY Qty: 30 RF: 5 methadone 5 MG/5 ML solution 105 mg PO DAILY RF: 0 sildenafil (pulm.hypertension) 20 mg tablet 50 mg PO qd prn 30 Days Qty: 60 RF: 5 clonidine HCl 0.1 mg tablet 0.1 mg PO BID Qty: 60 RF: 5 Vyvanse 60 mg capsule 60 mg PO QAM MDD 60 Qty: 30 RF: 0 clomiphene citrate 50 mg tablet 50 mg PO .qod RF: 0 Discharge Instructions Referrals: [facility] [Outside] Tomi Dao [Primary Care Provider] - Diet:: Normal Diet Discharge Orders Discharge Orders: Discharge Order (Routine); Ordered 02/18/21 Ordered By: Sarita Gonzales Discharge Data Discharge Date/Time-TO BE ENTERED AT DEPARTURE: 02/18/21 10:03 Discharge Comment: AMA, ambulatory, lines removed DS: Summary Time Spent with Patient providing and/or coordinating discharge services: Greater than 30 minutes Status at Discharge Functional status at discharge: independent ambulation Overall status at discharge: patient is progressing back to baseline Mental Status: mental status grossly normal Speech and Movement: speech clear and restless Mood: anxious mood Affect: anxious affect Exam Narrative Exam Narrative: General: pleasant though irritable middle-aged male, A&Ox3, minimally tremulous, cooperative, appears comfortable HEENT: EOMI, MMM Heart: RRR, no m/r/g Lungs: CTAB Abdomen: soft, nontender, nondistended Extremities: no edema BLE's Psych Mental Status: mental status grossly normal Speech and Movement: speech clear and restless Mood: anxious mood Affect: anxious affect DS: Data Vitals/I&O Vitals and I&O: Vital Signs Temperature 36.1 C L 02/18/21 04:43 Temperature Source Temporal Artery Scan 02/18/21 04:43 Pulse 70 02/18/21 04:43 Pulse 62 02/18/21 09:00 Respiratory Rate 19 02/18/21 06:00 Respiratory Effort Non-Labored 02/18/21 04:43 Respiratory Depth Normal 02/18/21 04:43 Respiratory Pattern Normal 02/18/21 04:43 Blood Pressure 148/100 H 02/18/21 04:43 Blood Pressure Mean 116 02/18/21 04:43 Blood Pressure Position Supine 02/18/21 04:43 Pulse Oximetry 97 02/18/21 04:43 Oxygen Delivery Method Room Air 02/18/21 04:43 Oxygen Flow Rate 0 04/25/21 04:43 Pain Level 8 02/18/21 05:18 Comment 02/17/21 01:26 Intake & Output 02/17/21 02/18/21 02/18/21 23:59 11:59 23:59 Intake Total 800 / 2700 400 / 400 Output Total 1350 / 0 1900 / 1900 Balance -550 / 650 -1500 / -1500 Weight 74 kg Intake: Oral 800 / 1700 400 / 400 Output: Urine [id number] 1900 / 1900 Other: Urine Color Light Soumya Yellow Urine Appearance Clear Clear Urine Odor Normal None Voiding Methods Urinal Urinal Data Completed and Pending Labs on day of discharge: Labs from last 24 hours 02/18/21 02/18/21 02/18/21 06:10 06:10 06:10 WBC 6.52 RBC 4.11 L Hgb 14.5 Hct 42.7 MCV 103.9 H MCH 35.3 H MCHC 34.0 RDW 11.5 L Plt Count 110 L MPV 10.3 Immature Gran % 0.3 Neutrophils % 69.3 Lymphocytes % 19.8 Monocytes % 7.8 Eosinophils % 2.3 Basophils % 0.5 Nucleated RBC % 0 Absolute Neutrophils 4.52 Absolute Lymphocytes 1.29 Absolute Monocytes 0.51 Absolute Eosinophils 0.15 Absolute Basophils 0.03 Sodium 143 Potassium 3.6 Chloride 106 Carbon Dioxide 28.8 Anion Gap 8.2 BUN 13 Creatinine 0.7 Estimated GFR/1.73 m2 >= 60.00 Glucose 124 H Calcium 9.2 Magnesium 2.1 Phenobarbital 40.3 H PFS Medical History ADD (attention deficit disorder) Anxiety (09/05/17) Hypertension Internal derangement of left knee Methadone dependence (04/01/18) Family History Mother Diabetes Father Diabetes Essential hypertension Brother No problems noted. Brother No problems noted. Grandfather No problems noted. Grandfather No problems noted. Grandmother No problems noted. Grandmother No problems noted. Daughter No problems noted. Social History Smoking/Tobacco Use Status: Current every day Tobacco Type: cigarettes Smoking risk assessment performed?: Yes Alcohol Intake: current Alcohol Intake frequency: 3 or more drinks per day Alcohol type: hard liquor Drug use: Never Substance use type: former substance user Details: 02/16/21-States drinks 1/2 gallon vodka daily. Current gender identity: male Do you feel safe at home: Yes Do you feel safe in your relationship?: Yes
== END 2021-02-18 10:03 | disposition left against medical advice (07) | DRG 894 ==
LOC: ER 15:12 → ICU 16:53
PROVIDERS: Family Medicine; Internal Medicine; Admitting Provider Internal Medicine; Emergency Provider Physician Assistant; PCP Family Medicine; Visit Provider Internal Medicine
DX: F10.231 Alcohol dependence with withdrawal delirium (principal); R45.851 Suicidal ideations; F11.20 Opioid dependence, uncomplicated; E22.1 Hyperprolactinemia; F10.232 Alcohol dependence with withdrawal with perceptual disturbance; R94.31 Abnormal electrocardiogram [ECG] [EKG]; Z20.822 Contact with and (suspected) exposure to COVID-19; F41.9 Anxiety disorder, unspecified; I10 Essential (primary) hypertension; F98.8 Other specified behavioral and emotional disorders with onset usually occurring in childhood and adolescence; F17.210 Nicotine dependence, cigarettes, uncomplicated; E29.1 Testicular hypofunction
CPT/HCPCS: 36415; 80048; 80053; 80307; 87635; 96365; 96366; 96367; 99223; 99232; 99291; J1650; 80184; 80320; 80329; 81003; 81015; 82607; 82746; 83735; 84100; 84443; 85025; 93005; 93010; 99239; J2560

== ENCOUNTER 2021-02-19 17:36 | Emergency (ER) | payer MEDICAID, SELFPAY ==
--- NOTE | 2021-02-19 17:37 | W.ED.GENAD ---
Discharge Plan Disposition Patient Disposition: [facility] Condition: Stable Discharge Details Chief Complaint: PsychEval Clinical Impression: Hallucination, visual, Elevated ETOH level Primary Care Provider: Tomi Dao ED Provider: Prema Soria Home Meds and New Rx's Prescriptions: No Action disulfiram [Antabuse] 250 mg tablet 250 mg PO DAILY Qty: 30 RF: 5 methadone 5 MG/5 ML solution 105 mg PO DAILY RF: 0 sildenafil (pulm.hypertension) 20 mg tablet 50 mg PO qd prn 30 Days Qty: 60 RF: 5 clonidine HCl 0.1 mg tablet 0.1 mg PO BID Qty: 60 RF: 5 Vyvanse 60 mg capsule 60 mg PO QAM MDD 60 Qty: 30 RF: 0 clomiphene citrate 50 mg tablet 50 mg PO .qod RF: 0 Discharge Data Discharge Date/Time-TO BE ENTERED AT DEPARTURE: 02/19/21 20:10 Medical Decision Making Patient is a 40-year-old male presenting today, brought in via state police, after being evalauted by court and requiring inpatient care. They have paper work for this order with them. If patient is discharged, it is to be in police custody but he is not currently under arrest. Patient states that he suffers from paranoia and has mental health issues but is not able to elaborate on any previous diagnoses. He denies SI or HI. Police report that they witnessed him seeing his signifcant other in the mims when she clearly was not present. Patient also states he sees people looking in his windows with flash lights. Last ETOH was 1130. He has hx of DTs. He wants to remain here voluntarily. Is cooperative and pleasant at this time. Will obtain baseline labs. Patient iwll remain under CPSO observation, on CIWA score. Contacted care management and . Safety plan in place. Patient sleeping. We were contacted by [facility], they report that patient was supposed to be transported to [facility] for inpatient psychiatric care. Advised that his transportation here was an error. They are working on arranging for transportation to inpatient psychiatric facility at [facility]. Contacted again by [facility], Michelle [phone]. She is arranging transportation via [employer] to [facility]. Spoke with emergency department physician, Dr. Chen, at [facility]. He was able to speak with warehouse general laborer, they are aware of the patient and accept in transfer. Discussed transfer with patient. He is in agreement with this plan. He is feeling more anxious and tremulous. Will give 0.5mg of Ativan prior to transfer. HPI General Mode of arrival: ambulatory. Date/Time Provider Initiated Documentation: 02/19/21 17:37. Limitations to Documentation: no limitations. Information obtained by: patient, police, RN notes reviewed and old records reviewed. HPI Narrative: Patient is a pleasant 40 year old male, brought in via [employer] under court order, with c/c of visual hallucinations. Patient states that he belives his visions to be real. His father was concerned that he was visualizing people in the mims that were not present. Patient resides with his father. Police witnessed these hallucinations when they picked him up at noon. Patient admits to paranoia and states he often sees people shining lights into his house. He reports chronic ETOH use, last drink was at 1130. He reports large amount of vodka dialy. States he startted drinking immediately after recent discharge. He states that he has had withdrawal seizures historically. Patient denies any SI/HI. Feels safe and is happy to be in department receiving care. Related Data Home Medications Medication Instructions Recorded Confirmed methadone 105 mg PO DAILY ml 09/05/17 02/19/21 disulfiram 250 mg tablet 250 mg PO DAILY #30 tab 05/23/20 02/19/21 sildenafil (pulm.hypertension) 20 50 mg PO qd prn 30 Days #60 tab-cap 08/28/20 02/19/21 mg tablet clonidine HCl 0.1 mg tablet 0.1 mg PO BID #60 tab 11/02/20 02/19/21 lisdexamfetamine 60 mg capsule 60 mg PO QAM #30 cap MDD 60 02/13/21 02/19/21 clomiphene citrate 50 mg PO .qod 02/16/21 02/19/21 Previous Rx's Medication Instructions Recorded disulfiram 250 mg tablet 250 mg PO DAILY #30 tab 05/23/20 sildenafil (pulm.hypertension) 20 50 mg PO qd prn 30 Days #60 tab-cap 08/28/20 mg tablet clonidine HCl 0.1 mg tablet 0.1 mg PO BID #60 tab 11/02/20 lisdexamfetamine 60 mg capsule 60 mg PO QAM #30 cap MDD 60 02/13/21 Allergies Allergy/AdvReac Type Severity Reaction Status Date / Time No Known Allergies Allergy Verified 02/19/21 17:54 General PACO: 2 Review of Systems Constitutional Constitutional: Reports as per HPI, Denies chills, Denies fatigue, Denies fever(s), Denies headache(s) and Denies weakness Eyes Eyes: Denies change in vision ENT Ears, Nose, Mouth, and Throat: Denies headache(s) Cardiovascular Cardiovascular: Reports as per HPI, Denies chest pain, Denies lightheadedness, Denies dyspnea and Denies dyspnea on exertion Respiratory Respiratory: Reports as per HPI, Denies cough, Denies dyspnea and Denies dyspnea on exertion Gastrointestinal Gastrointestinal: Reports as per HPI, Denies abdominal pain, Denies change in bowel habits, Denies nausea and Denies vomiting Musculoskeletal Musculoskeletal: Denies abnormal gait Integumentary/Breasts Skin/Breast: Reports as per HPI and Denies rash Neurologic Neurologic: Denies abnormal movements, Denies abnormal speech, Denies abnormal gait, Denies headache(s), Denies paresthesias and Denies weakness Psychiatric Psychiatric: Reports as per HPI Endocrine Endocrine: Denies fatigue PFSH Medical History ADD (attention deficit disorder) Anxiety (09/05/17) Hypertension Internal derangement of left knee Methadone dependence (04/01/18) Family History Mother Diabetes Father Diabetes Essential hypertension Brother No problems noted. Brother No problems noted. Grandfather No problems noted. Grandfather No problems noted. Grandmother No problems noted. Grandmother No problems noted. Daughter No problems noted. Social History Smoking/Tobacco Use Status: Current every day Tobacco Type: cigarettes Smoking risk assessment performed?: Yes Alcohol Intake: current Alcohol Intake frequency: 3 or more drinks per day Alcohol type: hard liquor Drug use: Never Substance use type: former substance user Details: 02/16/21-States drinks 1/2 gallon vodka daily. Current gender identity: male Do you feel safe at home: Yes Do you feel safe in your relationship?: Yes Exam Const General: cooperative, healthy appearing, comfortable, no acute distress, well developed and well groomed Nutritional Appearance: average body habitus and well nourished Orientation: alert and awake Eyes General: appearance normal, both eyes and all related structures Resp Effort & Inspection: normal respiratory effort, able to speak in complete sentences and no respiratory distress Auscultation: clear to auscultation bilaterally, no rales, no rhonchi and no wheezes Cardio Rate: regular rate Rhythm: regular rhythm Heart Sounds: S1 normal and S2 normal Skin General skin exam: no rashes or lesions noted Trauma: no lacerations or abrasions Neuro General: patient alert and patient awake Cognition: normal cognition Speech: speech normal Gait: normal gait Psych Appearance: grossly normal and well kempt Mental Status: mental status grossly normal Speech and Movement: speech and movement normal Mood: congruent mood Affect: normal affect Attitude: cooperative Thought Process: normal Thought Content: hallucinations visual (reports none at this time. Is aware of his paranoia ) Insight: limited Judgment: limited
[2021-02-19 17:50] VITALS: BP 142/86; PULSE 114; RESP 18; TEMP 36.3; O2SAT 92
[2021-02-19 18:06] LABS: Abs Immature Grans 0.02 10^3/uL (0.0-0.06); Absolute Basophil Count 0.03 10^3/uL (0.0-0.2); Absolute Eosinophil Count 0.03 10^3/uL (0.0-0.7); Absolute Lymphocyte Count 1.93 10^3/uL (1.2-3.4); Absolute Monocyte Count 0.88 10^3/uL (0.1-0.8); Absolute Neutrophil Count 4.55 10^3/uL (1.2-6.7); Basophils % 0.4; Eosinophils % 0.4; HCT 41.3 % (40.0-50.0); HGB 14.2 g/dL (13.5-17.5); Immature Grans % 0.3; Lymphocytes % 25.9; MCH 35.6 pg (27.0-33.0); MCHC 34.4 % (32.0-36.0); MCV 103.5 fL (80-95); MPV 9.6 fL (8.0-11.0); Monocytes % 11.8; Neutrophils % 61.2; Nucleated RBC 0 %; Platelet Count 154 10^3/uL (130-400); RBC 3.99 10^6/uL (4.36-5.78); RDW 11.9 % (11.8-14.1); RDW-SD 45.3 fL; WBC 7.44 10^3/uL (4.4-10.8)
[2021-02-19] MEDS: Lactated Ringers 1,000 ML 1000 ML IV (18:06)
[2021-02-19 18:27] LABS: ALT 99 U/L (16-63); AST 44 U/L (15-37); Albumin 4.2 g/dL (3.4-5.0); Alkaline Phosphatase 82 U/L (46-116); Anion Gap 11.6 mmol/L (3-11); BUN 16 mg/dL (7-18); Bilirubin, Total 0.4 mg/dL (0.2-1.0); CO2 26.4 mmol/L (21.0-32.0); CREATININE 0.9 mg/dL (0.70-1.30); Calcium 9.5 mg/dL (8.5-10.1); Chloride 106 mmol/L (98-107); ETHANOL BLOOD 118.1 mg/dL (<3); Glucose 91 mg/dL (74-106); Potassium 3.2 mmol/L (3.5-5.1); Sodium 144 mmol/L (136-145); TSH 0.57 uIU/mL (0.36-3.74); Total Protein 7.8 g/dL (6.4-8.2)
[2021-02-19 18:41] LABS: Salicylate 3.5 mg/dL (<2.8)
[2021-02-19 18:43] LABS: Acetaminophen < 2 ug/mL (10-30)
--- NOTE | 2021-02-19 18:50 | CMPROGNOTE_ITS ---
- If Service Date Differs Date of service: 02/19/21 Time of Service: 18:50 Care Management Progress Note Dangelo appeared in [place] [address], [place] [address], today to answer to several charges brought against him. While in court, Dangelo was screened by [facility] and an order was issued for Inpatient Psychiatric Examination. Dangelo was to be taken from the court to either [facility] or [facility] for that examination but was instead dropped off in the ED by the [facility] Police. GLORIA contacts [facility] and speaks with Michelle. GLORIA advises her that Dangelo is currently in our ED. As soon as Michelle is able to arrange transport, the plan is for Dangelo to be picked up from [facility] and taken to either [facility] or [facility] for an Inpatient Psychiatric Examination.
--- NOTE | 2021-02-19 18:50 | PDOC.ERCMPRO ---
- If Service Date Differs Date of service: 02/19/21 Time of Service: 18:50 Care Management Progress Note Dangelo appeared in [place] [address], [place] [address], today to answer to several charges brought against him. While in court, Dangelo was screened by [facility] and an order was issued for Inpatient Psychiatric Examination. Dangelo was to be taken from the court to either [facility] [place] [facility] [place] but was instead dropped off in the ED by the [facility]. GLORIA contacts [facility] and speaks with Michelle. GLORIA advises her that Dangelo is currently in our ED. As soon as Michelle is able to arrange transport, the plan is for Dangelo to be picked up from [facility] and taken to either [facility] or [facility] [place] an [place]iatric [place].
[2021-02-19 19:39] VITALS: PULSE 100; O2SAT 98
[2021-02-19] MEDS: LORazepam 2 MG/ML VIAL 0.5 MG IVP (20:00)
== END 2021-02-19 20:10 | disposition short-term general hospital (02) ==
PROVIDERS: Emergency Provider Physician Assistant; PCP Family Medicine
DX: R44.1 Visual hallucinations (principal); F10.120 Alcohol abuse with intoxication, uncomplicated; Y90.5 Blood alcohol level of 100-119 mg/100 ml
CPT/HCPCS: 36415; 80053; 96361; 96374; 99285; 80320; 80329; 84443; 85025; 99284; J2060

== ENCOUNTER 2021-08-24 03:31 | Outpatient (CLI) | payer MEDICAID, SELFPAY ==
[2021-08-24 08:36] LABS: Anion Gap 6.3 mmol/L (3-11); BUN 32 mg/dL (7-18); CO2 30.7 mmol/L (21.0-32.0); CREATININE 0.9 mg/dL (0.70-1.30); Calcium 9.3 mg/dL (8.5-10.1); Chloride 106 mmol/L (98-107); FREE T4 0.95 ng/dL (0.76-1.46); GGT 22 U/L (15-85); Glucose 91 mg/dL (74-106); Potassium 4.4 mmol/L (3.5-5.1); Sodium 143 mmol/L (136-145); TSH 3.06 uIU/mL (0.36-3.74)
[2021-08-24 17:48] LABS: Estradiol 25 pg/mL (<40)
[2021-08-24 18:17] LABS: FSH 7.7 mIU/mL (1.4-18.1); LH 4.6 mIU/mL (1.5-9.3)
[2021-08-24 18:21] LABS: Prolactin 9.3 ng/mL (2.1-17.7)
[2021-09-10 12:49] LABS: Testosterone, Total 334 ng/dL
== END 2021-08-24 03:32 | disposition home or self-care (01) ==
LOC: LBO 03:31
PROVIDERS: PCP Family Medicine; Visit Provider Internal Medicine Endocrinology, Diabetes & Metabolism
DX: E29.1 Testicular hypofunction (principal); N62 Hypertrophy of breast
CPT/HCPCS: 36415; 80048; 82533; 84402; 84403; 82670; 82977; 83001; 83002; 84146; 84439; 84443

== ENCOUNTER 2021-10-22 00:43 | Emergency (ER) | payer MEDICAID, SELFPAY ==
[2021-10-22 00:47] VITALS: BP 126/85; PULSE 92; RESP 16; TEMP 37.1; O2SAT 96
--- NOTE | 2021-10-22 01:01 | ED.GENADUL_ITS ---
Discharge Plan Disposition Patient Disposition: OTHER Condition: Stable Discharge Details Clinical Impression: ADD (attention deficit disorder) Primary Care Provider: Sophia Kelsey ED Provider: Torrey Tse Home Meds and New Rx's Prescriptions: Continued multivitamin Tablet 1 tab PO DAILY RF: 0 methadone 5 MG/5 ML solution 130 mg PO DAILY RF: 0 fluoxetine 20 mg capsule 20 mg PO DAILY Qty: 90 RF: 1 clonidine HCl 0.2 mg tablet 0.2 mg PO BID Qty: 60 RF: 5 lisdexamfetamine 60 mg capsule 60 mg PO QAM MDD 60 Qty: 30 RF: 0 Discharge Instructions Additional Instructions: follow up with your primary care provider and mental health providers as needed Medical Decision Making 41 yo male with hx of anxiety, depression , who comes here with [employer] police for medical clearance. [facility] a check in with his supervising officer. Mental health evaluated him at the care home given his psych history and did not feel he needed inpatient psychiatric care but PD needed medical clearance so he was referred here. He states he has been depressed but denies any thoughts of self harm or thoughts of wanting to harm others. He denies alcohol or drug use. He arrives caox4. He has clear speech, no focal motor deficits, clear lungs, soft abdomen, normal gait. No findings on exam or history to suggest underlying emergent medical process, stable vitals. Confirmed with mental health they evaluated him and does not need inpatient psychiatric care. He will be released in to [facility] custody Differential Diagnosis Differential Diagnosis: deperssion, anxiety HPI General Mode of arrival: ambulatory . Date/Time Provider Initiated Documentation: 10/22/21 00:48 . Limitations to Documentation: no limitations . Information obtained by: patient . History of Present Illness 41 year old M presents to the emergency department with the chief complaint of depression, described as moderate, and it has been constant. No relieving factors improve symptom(s), No exacerbating factors reported . Patient notes no other symptoms.. Patient did receive the following treatments prior to arrival, none Related Data Home Medications Medication Instructions Recorded Confirmed methadone 130 mg PO DAILY ml 09/05/17 10/22/21 multivitamin 1 tab PO DAILY 08/15/21 10/22/21 fluoxetine 20 mg capsule 20 mg PO DAILY #90 cap 08/27/21 10/22/21 clonidine HCl 0.2 mg tablet 0.2 mg PO BID #60 tab 10/05/21 10/22/21 lisdexamfetamine 60 mg capsule 60 mg PO QAM #30 cap MDD 60 10/08/21 10/22/21 Previous Rx's Medication Instructions Recorded fluoxetine 20 mg capsule 20 mg PO DAILY #90 cap 08/27/21 clonidine HCl 0.2 mg tablet 0.2 mg PO BID #60 tab 10/05/21 lisdexamfetamine 60 mg capsule 60 mg PO QAM #30 cap MDD 60 10/08/21 Allergies Allergy/AdvReac Type Severity Reaction Status Date / Time No Known Allergies Allergy Verified 10/22/21 00:54 General Stated Complaint: GenMedical PACO: 3 Review of Systems All systems reviewed & are unremarkable except as noted in HPI and below Constitutional Constitutional: Denies chills, Denies fever(s) and Denies weakness Cardiovascular Cardiovascular: Denies chest pain and Denies dyspnea Respiratory Respiratory: Denies cough and Denies dyspnea Gastrointestinal Gastrointestinal: Denies abdominal pain, Denies nausea and Denies vomiting Musculoskeletal Musculoskeletal: Denies joint swelling Neurologic Neurologic: Denies weakness PFSH All Active Problems (Updated 10/22/21 @ 01:12 by Torrey Tse MD) ADD (attention deficit disorder) (Chronic) Hypertension (Chronic) Methadone dependence (Chronic 04/01/18) [facility] in [facility] Hx intranasal and oral use of opioids. Meets with therapist twice monthly; has had take-home in the past. Tobacco abuse (Acute 11/19/17) 1/2 ppd Hypogonadism, male (Chronic 03/24/18) Pending appt with Dr. Charles at [facility] in [place] Hyperprolactinemia (Chronic 04/15/18) Hyperglycemia (Acute 09/05/17) Gynecomastia, male (Acute 03/11/18) secondary to methadone Family history of diabetes mellitus (DM) (Acute 09/05/17) Erectile dysfunction (Acute 10/03/17) Alcoholism in remission (Acute 09/05/17) Inpatient program 01/2021, independent living program and AA with sponsor. Longest sobriety was 3 years; worse with Covid. Anxiety disorder (Chronic) Medical History (Updated 10/22/21 @ 01:12 by Torrey Tse MD) Anxiety (09/05/17) Closed right ankle fracture (~09/2019) Internal derangement of left knee Sprain of anterior cruciate ligament of left knee (~09/2019) Family History Mother Diabetes Father Diabetes Essential hypertension Brother No problems noted. Brother No problems noted. Grandfather No problems noted. Grandfather No problems noted. Grandmother No problems noted. Grandmother No problems noted. Daughter No problems noted. Social History (Updated 08/15/21 @ 13:26 by Sophia Kelsey MD) Smoking/Tobacco Use Status: Current every day Tobacco Type: cigarettes Smoking risk assessment performed?: Yes Alcohol Intake: former Drug use: Never Substance use type: former substance user Household members: other Details: 3 other men in recovery. 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 Exam Const General: no acute distress Orientation: alert HENMT Head: normal to inspection Ears: external ears normal General nose exam: external nose normal Mouth: moist mucous membranes Eyes General: appearance normal, both eyes and all related structures Neck Neck: normal visual inspection Resp Effort & Inspection: normal respiratory effort and able to speak in complete sentences Cardio Rate: regular rate Skin General skin exam: no rashes or lesions noted Neuro General: patient alert and patient oriented x3 Extrem General: normal to inspection Psych Speech and Movement: not agitated and speech not slurred Course Vital Signs Vital signs: Vital Signs Temperature 37.1 C 10/22/21 00:47 Pulse 92 H 10/22/21 00:47 Respiratory Rate 16 10/22/21 00:47 Blood Pressure 126/85 10/22/21 00:47 Pulse Oximetry 96 10/22/21 00:47 Temperature 37.1 C 10/22/21 00:47 Temperature Source Skin 10/22/21 00:47 Pulse 92 H 10/22/21 00:47 Respiratory Rate 16 10/22/21 00:47 Blood Pressure 126/85 10/22/21 00:47 Blood Pressure Position Sitting 10/22/21 00:47 Pulse Oximetry 96 10/22/21 00:47 Oxygen Delivery Method Room Air 10/22/21 00:47 Oxygen Flow Rate 0 10/22/21 00:47 Pain Level 0 10/22/21 00:47
== END 2021-10-22 01:22 | disposition other institution (70) ==
PROVIDERS: Emergency Provider Emergency Medicine; PCP Family Medicine
DX: F98.8 Other specified behavioral and emotional disorders with onset usually occurring in childhood and adolescence (principal); F32.A Depression, unspecified
CPT/HCPCS: 99285; 99283

== ENCOUNTER 2021-11-07 13:30 | Emergency (ER) | payer MEDICAID, SELFPAY ==
[2021-11-07 14:31] VITALS: BP 167/109; PULSE 127; RESP 14; TEMP 37.3; O2SAT 97
--- NOTE | 2021-11-07 15:15 | DI.RAD_ITS ---
Exam(s) XR KNEE LT 4V+ EXAM: XR KNEE LT 4V+ CLINICAL HISTORY: knee injury, hx of acl injury. TECHNIQUE: 2D digital imaging was performed. COMPARISON: CR XR KNEE LT 3V AP,LAT,AMY from 10/25/2019 FINDINGS: Four views of the left knee reveal no evidence of fracture but there does appear to be a joint effusi on which may signify an internal derangement. Mild degenerative changes in the medial compartment ar e noted. Lateral compartment appears unremarkable as does the patellofemoral compartment. IMPRESSION: No fracture but there is joint effusion which may signify an internal derangement. Appropriate follo w-up recommended. DATA REPOSITORY: RADIATION DOSE DELIVERED:
--- NOTE | 2021-11-07 15:17 | NUR.NOTE ---
Addendum entered by Nancy Payan 11/07/21 15:19: Cherelle Purcell called 1520 stating that the patient returned. Will continue to use this account. Nancy Payan Original Note: Cherelle Purcell called at 1514 to say that the patient after returning from [facility] walked out the door. Nancy PayanNamparo Note:
--- NOTE | 2021-11-07 15:28 | W.ED.GENAD ---
Discharge Plan Disposition Patient Disposition: HOME Condition: Stable Discharge Details Clinical Impression: Effusion of knee joint, left Primary Care Provider: Sophia Kelsey ED Provider: Gabo Conde Home Meds and New Rx's Prescriptions: Continued multivitamin Tablet 1 tab PO DAILY RF: 0 methadone 5 MG/5 ML solution 130 mg PO DAILY RF: 0 clonidine HCl 0.2 mg tablet 0.2 mg PO BID Qty: 60 RF: 5 lisdexamfetamine 60 mg capsule 60 mg PO QAM MDD 60 Qty: 29 RF: 0 fluoxetine 20 mg capsule 30 mg PO DAILY RF: 0 Discharge Instructions Instructions: Swollen Knee Joint (ED) Additional Instructions: Rest, elevate, cool compresses every 2 hours for 20 minutes. [id number] Tylenol and/or Motrin as directed. Wear long leg immobilizer and use crutches as needed, advance activity as tolerated. Please watch for new or worsening symptoms in the coming to the ER for any concerns. Lastly, I have placed you on the orthopedic list, please call the tomorrow to discuss outpatient reevaluation, likely outpatient MRI for more definitive diagnosis and care. Referrals: Ej Bueno MD [ [facility]FF [facility]YSICIAN] - Medical Decision Making 41-year-old gentleman injured his knee a couple of years ago and subsequently again yesterday. Positive anterior drawer sign. Concern for internal derangement. Will obtain x-ray and reassess. Neuro, vascular, tendon intact. X-ray reveals a joint effusion but no fracture. Discussed x-ray findings with patient. Patient placed into a long-leg immobilizer and crutches with teaching. Discussed the importance of resting, elevating, cold and/or warm compress as well as [id number] Tylenol and Motrin. Patient placed on the orthopedic list to help expedite outpatient orthopedic follow-up. Standard discharge and return precautions provided This documentation was generated using [employer] dictation system, please disregard any oddities of phrase or misspellings. Medical Records Medical records reviewed: Yes I reviewed the patient's medical records. Imaging Data Radiologic Study: Attestation: I personally reviewed and interpreted this imaging study as follows: Imaging: X-Ray Radiologist's impression: Exam(s) XR KNEE LT 4V+ EXAM: XR KNEE LT 4V+ CLINICAL HISTORY: knee injury, hx of acl injury. TECHNIQUE: 2D digital imaging was performed. COMPARISON: CR XR KNEE LT 3V AP,LAT,AMY from 10/25/2019 FINDINGS: Four views of the left knee reveal no evidence of fracture but there does appear to be a joint effusion which may signify an internal derangement. Mild degenerative changes in the medial compartment are noted. Lateral compartment appears unremarkable as does the patellofemoral compartment. IMPRESSION: No fracture but there is joint effusion which may signify an internal derangement. Appropriate follow-up recommended. HPI General Mode of arrival: ambulatory. Date/Time Provider Initiated Documentation: 11/07/21 14:39. Limitations to Documentation: no limitations. Information obtained by: patient. HPI Narrative: This is a 41-year-old male, reports that he injured his left knee just before COVID, tearing his ACL, because of COVID he was unable to ever have a completely repaired. His knee has remained unstable but not painful so he was in no [place] to get it fixed. Yesterday he slipped on the ice, falling, twisting, and then someone stepped on his knee. Reports the pain is moderate to severe worse with movement or bearing weight. He denies any other injury, numbness, tingling, weakness. Patient states he took Tylenol earlier today with some relief. Related Data Home Medications Medication Instructions Recorded Confirmed methadone 130 mg PO DAILY ml 09/05/17 11/07/21 multivitamin 1 tab PO DAILY 08/15/21 11/07/21 clonidine HCl 0.2 mg tablet 0.2 mg PO BID #60 tab 10/05/21 11/07/21 lisdexamfetamine 60 mg capsule 60 mg PO QAM #29 cap MDD 60 11/06/21 11/07/21 fluoxetine 30 mg PO DAILY 11/07/21 11/07/21 Previous Rx's Medication Instructions Recorded clonidine HCl 0.2 mg tablet 0.2 mg PO BID #60 tab 10/05/21 lisdexamfetamine 60 mg capsule 60 mg PO QAM #29 cap MDD 60 11/06/21 Allergies Allergy/AdvReac Type Severity Reaction Status Date / Time No Known Allergies Allergy Verified 11/07/21 14:36 General Stated Complaint: Orthopedic PACO: 3 Review of Systems Constitutional Constitutional: Denies headache(s) and Denies weakness ENT Ears, Nose, Mouth, and Throat: Denies headache(s) Cardiovascular Cardiovascular: Denies chest pain and Denies dyspnea Respiratory Respiratory: Denies dyspnea Gastrointestinal Gastrointestinal: Denies nausea and Denies vomiting Musculoskeletal Musculoskeletal: Denies deformity, Reports arthralgias, Denies numbness, Reports stiffness and Denies tingling Integumentary/Breasts Skin/Breast: Denies rash Neurologic Neurologic: Denies headache(s), Denies numbness, Denies tingling and Denies weakness PFSH All Active Problems (Updated 11/07/21 @ 15:38 by ESTRELLITA Soares) Effusion of knee joint, left (Acute) ADD (attention deficit disorder) (Chronic) Hypertension (Chronic) Methadone dependence (Chronic 04/01/18) [facility] in [facility] Hx intranasal and oral use of opioids. Meets with therapist twice monthly; has had take-home in the past. Tobacco abuse (Acute 11/19/17) 1/2 ppd Hypogonadism, male (Chronic 03/24/18) Pending appt with Dr. Charles at [facility] in [place] Hyperprolactinemia (Chronic 04/15/18) Hyperglycemia (Acute 09/05/17) Gynecomastia, male (Acute 03/11/18) secondary to methadone Family history of diabetes mellitus (DM) (Acute 09/05/17) Erectile dysfunction (Acute 10/03/17) Alcoholism in remission (Acute 09/05/17) Inpatient program 01/2021, independent living program and AA with sponsor. Longest sobriety was 3 years; worse with Covid. Anxiety disorder (Chronic) Medical History Anxiety (09/05/17) Closed right ankle fracture (~09/2019) Internal derangement of left knee Sprain of anterior cruciate ligament of left knee (~09/2019) Family History Mother Diabetes Father Diabetes Essential hypertension Brother No problems noted. Brother No problems noted. Grandfather No problems noted. Grandfather No problems noted. Grandmother No problems noted. Grandmother No problems noted. Daughter No problems noted. Social History Smoking/Tobacco Use Status: Current every day Tobacco Type: cigarettes Smoking risk assessment performed?: Yes Alcohol Intake: former Drug use: Current Sobriety Substance use type: former substance user Household members: other Details: 3 other men in recovery. 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 Exam Const General: cooperative, healthy appearing, comfortable, no acute distress and anxious Orientation: alert and awake HENTN Head: normal to inspection, normocephalic and atraumatic Eyes General: appearance normal, both eyes and all related structures Conjunctivae: conjunctivae normal Neck Neck: normal visual inspection, trachea midline and supple Resp Effort & Inspection: normal respiratory effort and able to speak in complete sentences Auscultation: clear to auscultation bilaterally Cardio Rate: tachycardic (112) Rhythm: regular rhythm Skin General skin exam: no rashes or lesions noted Neuro General: patient alert, patient awake, moves all extremities and no focal motor deficits Cognition: normal cognition Speech: speech normal Gait: antalgic Motor: muscle tone normal throughout Sensory Exam: no sensory deficits noted Extrem General: full ROM and capillary refill normal Left lower extremity: knee Details: tenderness, swelling, normal ROM and knee ligament exam abnormal Details: anterior drawer test Details: both pain and laxity noted Psych Appearance: grossly normal Mental Status: mental status grossly normal Course Vital Signs Vital signs: Vital Signs Temperature 37.3 C 11/07/21 14:31 Pulse 127 H 11/07/21 14:31 Respiratory Rate 14 11/07/21 14:31 Blood Pressure 167/109 H 11/07/21 14:31 Pulse Oximetry 97 11/07/21 14:31 Temperature 37.3 C 11/07/21 14:31 Temperature Source Skin 11/07/21 14:31 Pulse 127 H 11/07/21 14:31 Respiratory Rate 14 11/07/21 14:31 Respiratory Effort 11/07/21 14:38 Blood Pressure 167/109 H 11/07/21 14:31 Blood Pressure Position Sitting 11/07/21 14:31 Pulse Oximetry 97 11/07/21 14:31 Oxygen Delivery Method Room Air 11/07/21 14:31 Oxygen Flow Rate 0 11/07/21 14:31 Pain Level 7 11/07/21 14:31 Comment 11/07/21 14:31
== END 2021-11-07 15:50 | disposition home or self-care (01) ==
PROVIDERS: Emergency Provider Physician Assistant; PCP Family Medicine
DX: M25.462 Effusion, left knee (principal); S89.82XA Other specified injuries of left lower leg, initial encounter; W00.2XXA Other fall from one level to another due to ice and snow, initial encounter
CPT/HCPCS: 29505; 99283; 73564

== ENCOUNTER 2021-11-10 16:23 | Inpatient (IN) | payer MEDICAID, SELFPAY ==
[2021-11-10] VITALS (56 sets, daily range): BP systolic 113–154; BP diastolic 59–107; PULSE 72–91; RESP 13–24; TEMP 36.7–36.9; O2SAT 89–97
--- NOTE | 2021-11-10 16:30 | RT.EKG_ITS ---
APPROVED REPORT Exam: Resting ECG Reason for Exam: ETOH Patient Location: E HR:81 bpm ECG Measurements Heart Rate 81 AXIS HI 136 P 35 QRSd 93 QRS 20 QT 418 T 2 QTc 486 Conclusion Sinus rhythm...normal P axis, V-rate 60- 99. Sinus. No STEMI. Prominent ST segment V2 compared to previous EKG. I have reviewed and interpreted ECG and agree with software generated interpretation.
[2021-11-10 17:00] LABS: Abs Immature Grans 0.03 10^3/uL (0.0-0.06); Absolute Basophil Count 0.03 10^3/uL (0.0-0.2); Absolute Eosinophil Count 0.13 10^3/uL (0.0-0.7); Absolute Lymphocyte Count 2.59 10^3/uL (1.2-3.4); Basophils % 0.3; Eosinophils % 1.2; HCT 40.8 % (40.0-50.0); HGB 13.6 g/dL (13.5-17.5); Immature Grans % 0.3; Lymphocytes % 23.3; MCHC 33.3 % (32.0-36.0); MPV 9.3 fL (8.0-11.0); Monocytes % 8.1; Neutrophils % 66.8; Nucleated RBC 0 %; Platelet Count 177 10^3/uL (130-400); RBC 4.25 10^6/uL (4.36-5.78); RDW 13.2 % (11.8-14.1); RDW-SD 47.1 fL; WBC 11.13 10^3/uL (4.4-10.8)
[2021-11-10 17:06] LABS: Absolute Neutrophil Count 7.43 10^3/uL (1.2-6.7)
[2021-11-10 17:20] LABS: ALT 65 U/L (16-63); AST 97 U/L (15-37); Alkaline Phosphatase 124 U/L (46-116); Anion Gap 8.5 mmol/L (3-11); BUN 13 mg/dL (7-18); Bilirubin, Total 0.6 mg/dL (0.2-1.0); CO2 27.5 mmol/L (21.0-32.0); CREATININE 0.7 mg/dL (0.70-1.30); Calcium 8.9 mg/dL (8.5-10.1); Chloride 101 mmol/L (98-107); Glucose 97 mg/dL (74-106); Potassium 3.6 mmol/L (3.5-5.1); Sodium 137 mmol/L (136-145); Total Protein 7.4 g/dL (6.4-8.2)
--- NOTE | 2021-11-10 17:20 | W.ED.GENAD ---
Discharge Plan Disposition Patient Disposition: [facility] INPATIENT Condition: Fair Discharge Details Clinical Impression: Alcohol abuse with withdrawal Admit Date/Time: 11/10/21 18:11 Admit Provider: Sarita Gonzales Attending Provider: Sarita Gonzales Primary Care Provider: Sophia Kelsey ED Provider: Leobardo Guaman Discharge Data Discharge Date/Time-TO BE ENTERED AT DEPARTURE: 11/10/21 19:55 Medical Decision Making Patient presenting to the emergency department for request of detox. Patient states that he had long period of sobriety which then ended about 40 days ago when he went on a large binge. Then he stopped for 3 days which resulted in a seizure yesterday evening. He states since then he has been drinking to stop any further seizures and is presenting to the emergency department for assistance. Patient denies any pain or discomfort and does state that he drank just prior to arrival. Physical exam is consistent with story with minor ecchymosis noted to left mormonism, slightly excoriated right posterior tongue, and otherwise unremarkable physical exam. Patient is mildly intoxicated but coherent, he is very agitated and fidgety along with noted and marked anxiety but no persistent tremor is noted. We will continue to monitor patient but plan to draw labs, give benzodiazepines per [facility] protocol, and start banana bag. Review of labs show no critical or worrisome findings. Pending urinalysis and UDS hospitalist was consulted for admission of patient. Spoke with hospitalist who agreed to admit patient and requested CPK prior to admission which I feel is reasonable. Orders were placed for additional lab. Patient remained stable throughout emergency department stay but did become more sedate which I feel is secondary to alcohol intake just prior to arrival and Ativan was given. HPI General Mode of arrival: ambulatory. Date/Time Provider Initiated Documentation: 11/10/21 16:25. Limitations to Documentation: no limitations. Information obtained by: patient. History of Present Illness 41 year old M presents to the emergency department with the chief complaint of Requesting detox, described as similar to prior episodes, Quality is described as other (Denies current pain), Patient notes seizure (1 episode last night after not drinking for 3 days). Patient did receive the following treatments prior to arrival, other (Alcohol intake just prior to arrival) Related Data Home Medications Medication Instructions Recorded Confirmed methadone 130 mg PO DAILY ml 09/05/17 11/10/21 multivitamin 1 tab PO DAILY 08/15/21 11/10/21 clonidine HCl 0.2 mg tablet 0.2 mg PO BID #60 tab 10/05/21 11/10/21 lisdexamfetamine 60 mg capsule 60 mg PO QAM #29 cap MDD 60 11/06/21 11/10/21 fluoxetine 30 mg PO DAILY 11/07/21 11/10/21 Previous Rx's Medication Instructions Recorded clonidine HCl 0.2 mg tablet 0.2 mg PO BID #60 tab 10/05/21 lisdexamfetamine 60 mg capsule 60 mg PO QAM #29 cap MDD 60 11/06/21 Allergies Allergy/AdvReac Type Severity Reaction Status Date / Time No Known Allergies Allergy Verified 11/07/21 14:36 General Stated Complaint: ETOHWithdr PACO: 3 Review of Systems Constitutional Constitutional: Denies chills and Denies fever(s) ENT Ears, Nose, Mouth, and Throat: Denies neck pain Cardiovascular Cardiovascular: Denies chest pain, Denies rapid heart rate and Denies dyspnea Respiratory Respiratory: Denies cough and Denies dyspnea Gastrointestinal Gastrointestinal: Denies abdominal pain, Denies nausea and Denies vomiting Musculoskeletal Musculoskeletal: Denies neck pain and Denies numbness Neurologic Neurologic: Reports as per HPI, Denies behavioral changes, Denies numbness, Reports convulsions and Reports tremor(s) Psychiatric Psychiatric: Reports anxiety, Denies behavioral changes and Reports irritability PFSH All Active Problems (Updated 11/10/21 @ 20:02 by Sarita Gonzales MD) Discharge planning issues (Acute) DVT prophylaxis (Acute) Rhabdomyolysis (Acute) Alcohol withdrawal seizure (Acute) Alcohol withdrawal (Acute) Effusion of knee joint, left (Acute) Alcohol abuse with withdrawal (Acute) Family history of diabetes mellitus (DM) (Acute 09/05/17) Medical History (Updated 11/10/21 @ 20:02 by Sarita Gonzales MD) ADD (attention deficit disorder) Alcoholism in remission (09/05/17) Inpatient program 01/2021, independent living program and AA with sponsor. Longest sobriety was 3 years; worse with Covid. Anxiety (09/05/17) Anxiety disorder Closed right ankle fracture (~09/2019) Erectile dysfunction (10/03/17) Gynecomastia, male (03/11/18) secondary to methadone Hyperglycemia (09/05/17) Hyperprolactinemia (04/15/18) Hypertension Hypogonadism, male (03/24/18) Pending appt with Dr. Charles at [facility] in [place] Internal derangement of left knee Methadone dependence (04/01/18) [facility] in [facility] Hx intranasal and oral use of opioids. Meets with therapist twice monthly; has had take-home in the past. Sprain of anterior cruciate ligament of left knee (~09/2019) Tobacco abuse (11/19/17) 1/2 ppd Family History (Updated 11/10/21 @ 20:31 by Sarita Gonzales MD) Mother Diabetes Cancer thyroid cancer Father Diabetes Essential hypertension Paternal Grandfather No problems noted. Maternal Grandfather Stroke Paternal Uncle Cancer stomach cancer Social History Smoking/Tobacco Use Status: Current every day Tobacco Type: cigarettes Smoking risk assessment performed?: Yes Alcohol Intake: current Alcohol type: beer and hard liquor Drug use: Current Sobriety Substance use type: former substance user Household members: other Details: 3 other men in recovery. 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 Exam Const General: cooperative, no acute distress, anxious and intoxicated appearing Orientation: alert, awake and oriented x3 HENMT Ears: hearing grossly normal bilaterally General nose exam: external nose normal Face and sinus: ecchymosis on the left (mormonism) Mouth: moist mucous membranes and tongue abnormal ulcerated (mild right side) Eyes General: appearance normal, both eyes and all related structures Alignment and Position: alignment normal Resp Effort & Inspection: normal respiratory effort, able to speak in complete sentences and no respiratory distress Cardio Rate: regular rate Rhythm: regular rhythm Skin General skin exam: no rashes or lesions noted Neuro General: patient alert, patient awake, patient oriented x3, moves all extremities, no focal motor deficits and not confused Psych Mental Status: mental status grossly normal Mood: anxious mood Affect: anxious affect Attitude: cooperative Thought Process: normal Course Vital Signs Vital signs: Vital Signs Temperature 36.8 C 11/10/21 16:31 Pulse 87 11/10/21 16:31 Respiratory Rate 16 11/10/21 16:31 Blood Pressure 154/107 H 11/10/21 16:31 Pulse Oximetry 94 11/10/21 16:31 Temperature 36.8 C 11/10/21 16:31 Temperature Source Oral 11/10/21 16:31 Pulse 87 11/10/21 16:31 Respiratory Rate 16 11/10/21 16:31 Respiratory Effort Non-Labored 11/10/21 16:36 Respiratory Pattern Normal 11/10/21 16:38 Blood Pressure 154/107 H 11/10/21 16:31 Blood Pressure Position Sitting 11/10/21 16:31 Pulse Oximetry 94 11/10/21 16:31 Oxygen Delivery Method Room Air 11/10/21 16:31 Oxygen Flow Rate 0 11/10/21 16:31 Pain Level 0 11/10/21 16:31 Lab/Test Results Lab/Test Results: Laboratory Tests Range/Units 11/10/21 16:50 WBC (4.4-10.8) 10^3/uL 11.13 H RBC (4.36-5.78) 10^6/uL 4.25 L Hgb (13.5-17.5) g/dL 13.6 Hct (40.0-50.0) % 40.8 MCV (80-95) fL 96.0 H MCH (27.0-33.0) pg 32.0 MCHC (32.0-36.0) % 33.3 RDW (11.8-14.1) % 13.2 Plt Count (130-400) 10^3/uL 177 MPV (8.0-11.0) fL 9.3 Immature Gran % 0.3 Neutrophils % 66.8 Lymphocytes % 23.3 Monocytes % 8.1 Eosinophils % 1.2 Basophils % 0.3 Nucleated RBC % % 0 Absolute Neutrophils (1.2-6.7) 10^3/uL 7.43 H Absolute Lymphocytes (1.2-3.4) 10^3/uL 2.59 Absolute Monocytes (0.1-0.8) 10^3/uL 0.90 H Absolute Eosinophils (0.0-0.7) 10^3/uL 0.13 Absolute Basophils (0.0-0.2) 10^3/uL 0.03 PAWSS Have you Been Recently Intoxicated or Drunk Within the Last 30 days?: Yes Have you Ever Experienced Previous Episodes of Alcohol Withdrawal?: Yes Have you ever Experienced Withdrawal Seizures?: Yes Have you ever Experienced Delirium Tremens(DT)s?: Yes Have you ever undergone Alcohol Rehabilitation Treatment (i.e, inpt ot outpatient treatment programs)?: Yes Have you ever Experienced Blackouts?: Yes Have you ever Combined Alcohol with other Downers within the last 90 days?: Yes Have you ever Combined Alcohol with any other Substance of Abuse during the last 90 days?: Yes Positive Blood Alcohol level on Presentation? [PCS.BAL]: Yes Evidence of Increased Autonomic Activity (i.e. HR>120, tremor, sweating, agitation, nausea)?: Yes Result: 10
[2021-11-10] MEDS: Normal Saline Flush 10 ML SYR IVP ×2 (17:23→23:28)
[2021-11-10] MEDS: LORazepam 2 MG/ML VIAL IVP ×2 (17:23→23:24)
[2021-11-10 17:26] LABS: Salicylate 4.1 mg/dL (<2.8)
[2021-11-10 17:27] LABS: Acetaminophen < 2 ug/mL (10-30)
[2021-11-10 17:28] LABS: PHOSPHORUS 4.5 mg/dL (2.6-4.7)
[2021-11-10 17:31] LABS: ETHANOL BLOOD 146.8 mg/dL (<10); Lipase 66 U/L (73-393); Magnesium 1.9 mg/dL (1.8-2.4); Troponin I < 50 ng/L (<or=60)
--- NOTE | 2021-11-10 17:31 | NUR.NOTE ---
Nursing Note: Pt scored a CIWA of 13 upon arrival. Per orders, Lorazepam 3mg was prepared to administer. Upon entering pt room he was noted to be supine, asleep, snoring and a coffee cup clutched in hand. Coffee cup removed from hand and was noted to have about 1/4 cup left of beer. Provider at bedside, was determined to only administer 1.5mg lorazepam vs. 3mg due to AMS and recent ETOH intake. Cup was removed from the room and disposed of, remains asleep on cardiac monitoring with stable VS and stable oxygen levels.
[2021-11-10] MEDS: MULTIVITAMIN 10 ML, THIAMINE 100 MG, FOLIC ACID 1 MG in DEXTROSE 5%-0.45% SALINE 1,000 ML 42 ML IV (17:36)
[2021-11-10] MEDS: Folic Acid 50 MG/10 ML VIAL (17:36)
[2021-11-10] MEDS: Thiamine 200 MG/2 ML VIAL (17:36)
[2021-11-10 19:32] LABS: Creatine Kinase 2760 U/L (39-308)
--- NOTE | 2021-11-10 19:34 | W.PM.HP.N ---
Date of service: 11/10/21 Time of Service: 19:35 Assessment and Plan Assessment and plan (1) Alcohol withdrawal: Status: Acute Assessment and plan: Admit to ICU. While it is not ideal, the patient refuses treatment with phenobarbital. For this reason, we will start him on the benzodiazepine pathway, and I anticipate the patient is going to require scheduled librium in addition to prn ativan, though not yet. The patient is receiving a banana bag - will give PO vitamins thereafter. IVF. Monitor lytes. Seizure precautions. (2) Alcohol withdrawal seizure: Status: Acute Assessment and plan: As above (3) Rhabdomyolysis: Status: Acute Assessment and plan: IVF. Trend CPK, Cr. Monitor I/Os (4) Methadone dependence: Assessment and plan: We will verify methadone dosing with [facility]. (5) DVT prophylaxis: Status: Acute Assessment and plan: SC enoxaparin (6) Discharge planning issues: Status: Acute Assessment and plan: Full code Admit to ICU. Total Critical Care Time 45 minutes. History of Present Illness History of Present Illness Chief Complaint: Alcohol withdrawal seizure Narrative: Mr Pineda is a 41 year old male with PMHx of alcohol abuse and withdrawal, including alcohol withdrawal seizures, as well as h/o opioid dependece on methadone through [facility] (130 mg daily), anxiety d/o, ADD, who presented to [facility] ED today reporting that, having stopped drinking 3-4 days ago after his most recent relapse 48 days ago, he had an alcohol withdrawal seizure yesterday while in his bed. He bit his tongue and was incontinent of urine. In order to treat his alcohol withdrawal seizure himself at home, the patient started drinking again, but reported to [facility] ED today stating that he would really like to stop and wanted to do it in a safe manner. His EtOH level on arrival to the ED was 146.8 mg/dL. His CIWA score was 13, and he was medicated with 1.5 mg of lorazepam, which left the patient sedate, per the ED provider. His workup demonstrated rhabdomyolysis. Hospitalist admission to the ICU was requested. The patient states that his only other injury is a bruise near his left alevism. He denies any other injuries or sx at this time. When talking about his course of treatment, Dangelo states that he did not have a good experience with phenobarbital on his prior admissions x 2. He states that it was not enough to treat his withdrawal which is why he left last night. We discussed that, given his h/o alcohol withdrawal seizure, phenobarbital would actually be ideal, but the patient firmly refused to take it, as witnessed by nursing, despite us counseling that there was a great chance of his ending up intubated if we stuck to benzodiazepine protocol. The patient verbalized understanding and agrees to be intubated if needed. Review of Systems Narrative: reports dysuria (refuses STD testing; has not been sexually active x 1 year, he states). All systems reviewed & are unremarkable except as noted in HPI and below PFSH All Active Problems (Updated 11/10/21 @ 20:02 by Sarita Gonzales MD) Discharge planning issues (Acute) DVT prophylaxis (Acute) Rhabdomyolysis (Acute) Alcohol withdrawal seizure (Acute) Alcohol withdrawal (Acute) Effusion of knee joint, left (Acute) Alcohol abuse with withdrawal (Acute) Family history of diabetes mellitus (DM) (Acute 09/05/17) Medical History (Updated 11/10/21 @ 20:02 by Sarita Gonzales MD) ADD (attention deficit disorder) Alcoholism in remission (09/05/17) Inpatient program 01/2021, independent living program and AA with sponsor. Longest sobriety was 3 years; worse with Covid. Anxiety (09/05/17) Anxiety disorder Closed right ankle fracture (~09/2019) Erectile dysfunction (10/03/17) Gynecomastia, male (03/11/18) secondary to methadone Hyperglycemia (09/05/17) Hyperprolactinemia (04/15/18) Hypertension Hypogonadism, male (03/24/18) Pending appt with Dr. Charles at [facility] in [place] Internal derangement of left knee Methadone dependence (04/01/18) [facility] in [facility] Hx intranasal and oral use of opioids. Meets with therapist twice monthly; has had take-home in the past. Sprain of anterior cruciate ligament of left knee (~09/2019) Tobacco abuse (11/19/17) 1/2 ppd Family History Mother Diabetes Cancer thyroid cancer Father Diabetes Essential hypertension Paternal Grandfather No problems noted. Maternal Grandfather Stroke Paternal Uncle Cancer stomach cancer Social History Smoking/Tobacco Use Status: Current every day Tobacco Type: cigarettes Smoking risk assessment performed?: Yes Alcohol Intake: current Alcohol type: beer and hard liquor Drug use: Current Sobriety Substance use type: former substance user Household members: other Details: 3 other men in recovery. 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 Meds Allergies and Home Medications Allergies Allergy/AdvReac Type Severity Reaction Status Date / Time No Known Allergies Allergy Verified 11/07/21 14:36 Home Medications Medication Instructions Recorded Confirmed Type methadone 130 mg PO DAILY ml 09/05/17 11/10/21 History multivitamin 1 tab PO DAILY 08/15/21 11/10/21 History clonidine HCl 0.2 mg tablet 0.2 mg PO BID #60 tab 10/05/21 11/10/21 Rx lisdexamfetamine 60 mg capsule 60 mg PO QAM #29 cap MDD 60 11/06/21 11/10/21 Rx fluoxetine 30 mg PO DAILY 11/07/21 11/10/21 History Exam Narrative Exam Narrative: General: Pleasant anxious male, tremulous, A&Ox3, easily distracted, but answers questions appropriately and is cooperative and polite Neurological: A&Ox3, no focal deficits, tremulous Psychiatric: Anxious, distracted/inattentive, cooperative Skin: small greenish echymosis near L alevism, a cat scratch on L neck HEENT: Atraumatic (except ecchymosis/L neck cut), normocephalic, EOMI, MMM, clear oropharynx, R-sided tongue bite without evidence of hematoma or significant tongue swelling, no submandibular or cervical lymphadenopathy, no goiter or JVD Cardiovascular: RRR, no m/r/g Lungs: CTAB Gastrointestinal: soft, nontender, nondistended Genitourinary: deferred Extremities: no edema, clubbing, or cyanosis of BLE's, 2+ pedal pulses B Results Imaging Additional studies: EKG: NSR, HR 81, no acute ischemia Labs Result diagrams: 11/10/21 16:50 11/10/21 16:50 Labs: Laboratory Results - last 24 hr 11/10/21 11/10/21 11/10/21 16:50 16:50 16:50 WBC RBC Hgb Hct MCV MCH MCHC RDW Plt Count MPV Immature Gran % Neutrophils % Lymphocytes % Monocytes % Eosinophils % Basophils % Nucleated RBC % Absolute Neutrophils Absolute Lymphocytes Absolute Monocytes Absolute Eosinophils Absolute Basophils Sodium 137 Potassium 3.6 Chloride 101 Carbon Dioxide 27.5 Anion Gap 8.5 BUN 13 Creatinine 0.7 Estimated GFR/1.73 m2 >= 60.00 Glucose 97 Calcium 8.9 Phosphorus Magnesium 1.9 Total Bilirubin 0.6 AST 97 H ALT 65 H Alkaline Phosphatase 124 H Creatine Kinase Troponin I < 50 Total Protein 7.4 Albumin 4.0 Lipase 66 Salicylates 4.1 Acetaminophen < 2 Ethyl Alcohol 146.8 H COVID-19 Source 11/10/21 11/10/21 11/10/21 16:50 16:50 16:50 WBC 11.13 H RBC 4.25 L Hgb 13.6 Hct 40.8 MCV 96.0 H MCH 32.0 MCHC 33.3 RDW 13.2 Plt Count 177 MPV 9.3 Immature Gran % 0.3 Neutrophils % 66.8 Lymphocytes % 23.3 Monocytes % 8.1 Eosinophils % 1.2 Basophils % 0.3 Nucleated RBC % 0 Absolute Neutrophils 7.43 H Absolute Lymphocytes 2.59 Absolute Monocytes 0.90 H Absolute Eosinophils 0.13 Absolute Basophils 0.03 Sodium Potassium Chloride Carbon Dioxide Anion Gap BUN Creatinine Estimated GFR/1.73 m2 Glucose Calcium Phosphorus 4.5 Magnesium Total Bilirubin AST ALT Alkaline Phosphatase Creatine Kinase 2760 H Troponin I Total Protein Albumin Lipase Salicylates Acetaminophen Ethyl Alcohol COVID-19 Source 11/10/21 18:45 WBC RBC Hgb Hct MCV MCH MCHC RDW Plt Count MPV Immature Gran % Neutrophils % Lymphocytes % Monocytes % Eosinophils % Basophils % Nucleated RBC % Absolute Neutrophils Absolute Lymphocytes Absolute Monocytes Absolute Eosinophils Absolute Basophils Sodium Potassium Chloride Carbon Dioxide Anion Gap BUN Creatinine Estimated GFR/1.73 m2 Glucose Calcium Phosphorus Magnesium Total Bilirubin AST ALT Alkaline Phosphatase Creatine Kinase Troponin I Total Protein Albumin Lipase Salicylates Acetaminophen Ethyl Alcohol COVID-19 Source Nasal/Nares Last Vital Signs Temp 36.8 C 11/10/21 16:31 Pulse 80 11/10/21 19:10 Resp 16 11/10/21 19:10 BP 130/83 11/10/21 19:10 Pulse Ox 94 11/10/21 19:10 PAWSS Have you Been Recently Intoxicated or Drunk Within the Last 30 days?: Yes Have you Ever Experienced Previous Episodes of Alcohol Withdrawal?: Yes Have you ever Experienced Withdrawal Seizures?: Yes Have you ever Experienced Delirium Tremens(DT)s?: Yes Have you ever undergone Alcohol Rehabilitation Treatment (i.e, inpt ot outpatient treatment programs)?: Yes Have you ever Experienced Blackouts?: Yes Have you ever Combined Alcohol with other Downers within the last 90 days?: Yes Have you ever Combined Alcohol with any other Substance of Abuse during the last 90 days?: Yes Positive Blood Alcohol level on Presentation? [PCS.BAL]: Yes Evidence of Increased Autonomic Activity (i.e. HR>120, tremor, sweating, agitation, nausea)?: Yes Result: 10
[2021-11-10 19:45] LABS: Source Nasopharynx
[2021-11-10 19:51] LABS: Bilirubin Negative (Negative); Blood Negative (Negative); Clarity Clear (Clear); Glucose Negative (Negative); Ketones Negative (Negative); Leukocyte Esterase Negative (Negative); Nitrite Negative (Negative); Urobilinogen 0.2 EU/dL (Up TO 0.2); pH 5.5 (5-8)
[2021-11-10 20:05] LABS: *AMPHETAMINES SCREEN URINE Positive (Negative); *BARBITURATES SCREEN URINE Negative (Negative); *BENZODIAZEPINES SCREEN URINE Negative (Negative); Cannabinoids THC Negative (Negative); Cocaine Screen,Urine Negative (Negative); METHADONE URINE SCREEN Positive (Negative); OPIATES URINE SCREEN Negative (Negative)
[2021-11-10 20:07] LABS: Tricyclic Antidepressants Negative (Negative)
[2021-11-10 20:24] LABS: COVID-19 PCR Negative (Negative); Influenza A PCR Negative (Negative); Influenza B PCR Negative (Negative); RSV PCR Negative (Negative)
[2021-11-10] MEDS: Nicotine 14 MG/24 HR PATCH TD (23:24)
[2021-11-11] VITALS (121 sets, daily range): BP systolic 121–145; BP diastolic 64–93; PULSE 51–110; RESP 8–23; TEMP 36.2–37; O2SAT 91–98
[2021-11-11] MEDS: LORazepam 2 MG/ML VIAL IVP ×3 (03:32→16:19)
[2021-11-11] MEDS: Normal Saline Flush 10 ML SYR IVP ×2 (03:32→13:52)
[2021-11-11 07:11] LABS: Absolute Basophil Count 0.02 10^3/uL (0.0-0.2); Absolute Eosinophil Count 0.25 10^3/uL (0.0-0.7); Absolute Lymphocyte Count 2.59 10^3/uL (1.2-3.4); Absolute Monocyte Count 0.58 10^3/uL (0.1-0.8); Absolute Neutrophil Count 2.88 10^3/uL (1.2-6.7); Basophils % 0.3; HCT 41.6 % (40.0-50.0); MCH 32.4 pg (27.0-33.0); MCHC 33.7 % (32.0-36.0); MCV 96.3 fL (80-95); MPV 9.7 fL (8.0-11.0); Monocytes % 9.2; Neutrophils % 45.5; Nucleated RBC 0 %; Platelet Count 164 10^3/uL (130-400); RBC 4.32 10^6/uL (4.36-5.78); RDW 13.4 % (11.8-14.1); RDW-SD 48.3 fL; WBC 6.32 10^3/uL (4.4-10.8)
[2021-11-11 07:39] LABS: ALT 55 U/L (16-63); AST 55 U/L (15-37); Albumin 3.3 g/dL (3.4-5.0); Alkaline Phosphatase 117 U/L (46-116); Anion Gap 4.7 mmol/L (3-11); BUN 14 mg/dL (7-18); Bilirubin, Direct 0.2 mg/dL (0.0-0.2); Bilirubin, Total 0.8 mg/dL (0.2-1.0); CO2 30.3 mmol/L (21.0-32.0); CREATININE 0.8 mg/dL (0.70-1.30); Calcium 8.9 mg/dL (8.5-10.1); Chloride 105 mmol/L (98-107); Glucose 99 mg/dL (74-106); Magnesium 2.2 mg/dL (1.8-2.4); PHOSPHORUS 3.8 mg/dL (2.6-4.7); Potassium 4.1 mmol/L (3.5-5.1); Sodium 140 mmol/L (136-145); Total Protein 6.5 g/dL (6.4-8.2)
--- NOTE | 2021-11-11 07:39 | PDOC.CMIN ---
- If Service Date Differs Date of service: 11/11/21 Time of Service: 07:43 Care Management Initial Assess REASON FOR HOSPITALIZATION:: ETOH Withdrawal, s/p alcohol withdrawal seizure PAST MEDICAL HISTORY/PAST SURGICAL HISTORY:: Mr Pineda is a 41 year old male with PMHx of alcohol abuse and withdrawal, including alcohol withdrawal seizures, as well as h/o opioid dependece on methadone through [facility] (130 mg daily), anxiety d/o, ADD, who presented to [facility] ED today reporting that, having stopped drinking 3-4 days ago after his most recent relapse 48 days ago, he had an alcohol withdrawal seizure yesterday while in his bed. He bit his tongue and was incontinent of urine. In order to treat his alcohol withdrawal seizure himself at home, the patient started drinking again, but reported to [facility] ED today stating that he would really like to stop and wanted to do it in a safe manner. His EtOH level on arrival to the ED was 146.8 mg/dL. His CIWA score was 13, and he was medicated with 1.5 mg of lorazepam, which left the patient sedate, per the ED provider. His workup demonstrated rhabdomyolysis. Hospitalist admission to the ICU was requested. The patient states that his only other injury is a bruise near his left judaism. He denies any other injuries or sx at this time. When talking about his course of treatment, Dangelo states that he did not have a good experience with phenobarbital on his prior admissions x 2. He states that it was not enough to treat his withdrawal which is why he left last night. We discussed that, given his h/o alcohol withdrawal seizure, phenobarbital would actually be ideal, but the patient firmly refused to take it, as witnessed by nursing, despite us counseling that there was a great chance of his ending up intubated if we stuck to benzodiazepine protocol. The patient verbalized understanding and agrees to be intubated if needed. ADD (attention deficit disorder). Alcoholism in remission (09/05/17). Inpatient program 01/2021, independent living program and AA with sponsor. Longest sobriety was 3 years; worse with Covid. Anxiety (09/05/17). Anxiety disorder. Closed right ankle fracture (~09/2019). Erectile dysfunction (10/03/17). Gynecomastia, male (03/11/18). secondary to methadone. Hyperglycemia (09/05/17). Hyperprolactinemia (04/15/18). Hypertension. Hypogonadism, male (03/24/18). Pending appt with Dr. Charles at [facility] in [place]. Internal derangement of left knee. Methadone dependence (04/01/18). [facility] in [facility]. Hx intranasal and oral use of opioids. Meets with therapist twice monthly; has had take-home in the past. Sprain of anterior cruciate ligament of left knee (~09/2019). Tobacco abuse (11/19/17). 1/2 ppd PREVIOUS FUNCTIONAL STATUS/SOCIAL/FAMILY SUPPORTS:: Dangelo lives in [facility] with his father. He is from his . They have one child named Elizabeth, who per report, is 14 years old. Dangelo did not engage with this check writer, this information is obtained through chart review. He is independent at baseline. CURRENT FUNCTIONAL STATUS:: Of note, Dangelo refused phenobarb and requested librium for withdrawal. Thus far, staff report he has been appropriate in interaction. ADVANCE DIRECTIVES:: None on file Has patient been provided with info about the portal/API?: Yes Did the patient sign up for the portal?: Yes (Previously) CODE STATUS:: Full Code INSURANCE COVERAGE / FINANCIAL ISSUES:: [facility] CURRENT HOME/COMMUNITY SERVICES/EQUIPMENT:: No current services or equipment. PRIMARY CARE PHYSICIAN:: Tomi Dao POTENTIAL DISCHARGE NEEDS:: [facility] resources, follow up appointments. PATIENT/FAMILY EDUCATION NEEDS:: Review discharge instructions regarding community resources and medications, discussion of self care needs and goals of care. ANTICIPATED BARRIERS TO DISCHARGE:: Dangelo will need to be screened by [facility] prior to discharge. TRANSPORTATION:: Via private vehicle by family. PLAN:: Dangelo continues to be monitored at ICU level of care and treated for ETOH withdrawal. Methadone maintenance dose which is managed by [facility] in the community is also being administered. Once he is medically cleared he will be screened by [facility]. His discharge plan will be determined by that screening. He will either pursue hospitalization vs home with support from [facility] outpatient. Transportation to be detemined by discharge. He will follow up with his PCP and discharge plan of care. CM will continue.
[2021-11-11 07:42] LABS: Creatine Kinase 1088 U/L (39-308)
[2021-11-11 08:16] LABS: Hemoglobin A1C 4.9 % (<5.7)
[2021-11-11 08:18] LABS: Vitamin B12 1140 pg/mL (193-986)
[2021-11-11 08:19] LABS: Folate > 20.0 ng/mL (8.6-20.0)
[2021-11-11] MEDS: LORazepam 1 MG TAB PO/SL ×2 (09:49→23:46)
[2021-11-11] MEDS: cloNIDine 0.1 MG TAB 0.2 MG PO ×2 (10:12→21:43)
[2021-11-11] MEDS: FLUoxetine 10 MG TAB 30 MG PO (10:12)
[2021-11-11] MEDS: Folic Acid 1 MG TAB PO (10:12)
[2021-11-11] MEDS: Methadone Liquid 10 MG/ML 130 MG PO (10:13)
[2021-11-11] MEDS: Lisdexamphetamine 40 MG CAP PO (10:13)
[2021-11-11] MEDS: Thiamine 100 MG TAB PO (10:14)
[2021-11-11] MEDS: Multivitamin TAB 1 TAB PO (10:24)
--- NOTE | 2021-11-11 13:31 | NUR.NOTE ---
Patient slept from approximately 09:30 to 13:00.Nursing Note:
--- NOTE | 2021-11-11 14:02 | NUR.NOTE ---
Patient receives 2mg of Ativan IVP. Patient alert and oriented but tremors have worsened.Nursing Note:
--- NOTE | 2021-11-11 14:14 | NUR.NOTE ---
RN gives patient some blue paper pants per patient's request.Nursing Note:
[2021-11-11] MEDS: chlordiazePOXIDE 25 MG CAP 50 MG PO ×2 (14:16→21:43)
--- NOTE | 2021-11-11 14:25 | W.PM.PROGNOT ---
Date of Service Date of service: 11/11/21 Time of Service: 14:25 Assessment and Plan Assessment and plan (1) Alcohol withdrawal: Status: Acute Assessment and plan: Admit to ICU. CIWA with prn lorazepam. He voices best results in past withdrawal with librium. Added scheduled librium. Banana bag in the ED. Oral thiamine and folate daily now. IVF. Monitor lytes. Seizure precautions. (2) Alcohol withdrawal seizure: Status: Acute Assessment and plan: As above (3) Rhabdomyolysis: Status: Acute Assessment and plan: IVF. Trend CPK, Cr. Monitor I/Os (4) Methadone dependence: Assessment and plan: We will verify methadone dosing with [facility] on Friday. Give dose he has on DEC today. (5) DVT prophylaxis: Status: Acute Assessment and plan: SC enoxaparin (6) Discharge planning issues: Status: Acute Assessment and plan: Full code Admit to ICU. Care management. Subjective Subjective Patient reports: afebrile; denies diarrhea, nausea, vomiting and shortness of breath Interval history since last seen: Headache. Tolerated liquids. Exam Narrative Exam Narrative: General: Pleasant anxious male, tremulous, A&Ox3, easily distracted, but answers questions appropriately and is cooperative and polite Neurological: A&Ox3, no focal deficits, tremulous Psychiatric: Anxious, distracted/inattentive, cooperative Skin: small greenish echymosis near L latter-day, a cat scratch on L neck HEENT: Atraumatic (except ecchymosis/L neck cut), normocephalic, EOMI, MMM, clear oropharynx, R-sided tongue bite without evidence of hematoma or significant tongue swelling, no submandibular or cervical lymphadenopathy, no goiter or JVD Cardiovascular: RRR, no m/r/g Lungs: CTAB Gastrointestinal: soft, nontender, nondistended Genitourinary: deferred Extremities: no edema, clubbing, or cyanosis of BLE's, 2+ pedal pulses B Const General: cooperative and no acute distress Nutritional Appearance: average body habitus Orientation: alert HENWV Head: normocephalic and other (R latter-day with small ecchymoses) Mouth: abnormal tongue (R tongue with trauma/bite. No bleeding/hematoma.) Eyes General: appearance normal, both eyes and all related structures Sclera: sclerae normal Neck Neck: normal visual inspection and full ROM Resp Effort & Inspection: normal respiratory effort Auscultation: clear to auscultation bilaterally Cardio Rate: regular rate Rhythm: regular rhythm Heart Sounds: S1 normal and S2 normal GI Palpation: soft and nontender Auscultation: normal bowel sounds Neuro General: no focal motor deficits Speech: speech normal Extrem General: no pedal edema and no calf tenderness Objective Last Vital Signs Temp 36.6 C 11/11/21 14:03 Pulse 85 11/11/21 14:04 Resp 23 11/11/21 14:10 BP 135/90 11/11/21 14:04 Pulse Ox 97 11/11/21 14:10 Laboratory Results - last 24 hr 11/10/21 11/10/21 11/10/21 16:50 16:50 16:50 WBC RBC Hgb Hct MCV MCH MCHC RDW Plt Count MPV Immature Gran % Neutrophils % Lymphocytes % Monocytes % Eosinophils % Basophils % Nucleated RBC % Absolute Neutrophils Absolute Lymphocytes Absolute Monocytes Absolute Eosinophils Absolute Basophils Sodium 137 Potassium 3.6 Chloride 101 Carbon Dioxide 27.5 Anion Gap 8.5 BUN 13 Creatinine 0.7 Estimated GFR/1.73 m2 >= 60.00 Glucose 97 Hemoglobin A1c Calcium 8.9 Phosphorus Magnesium 1.9 Total Bilirubin 0.6 Conjugated Bilirubin AST 97 H ALT 65 H Alkaline Phosphatase 124 H Creatine Kinase Troponin I < 50 Total Protein 7.4 Albumin 4.0 Lipase 66 Vitamin B12 Folate Urine Color Urine Clarity Urine pH Ur Specific Gerry Urine Protein Urine Ketones Urine Blood Urine Nitrite Urine Bilirubin Urine Urobilinogen Ur Leukocyte Esterase Urine Glucose Salicylates 4.1 Urine Opiates Screen Urine Methadone Screen Acetaminophen < 2 Ur Barbiturates Screen Ur Tricyclics Screen Ur Amphetamines Screen U Benzodiazepines Scrn Urine Cocaine Screen Ur THC Screen Ethyl Alcohol 146.8 H COVID-19 Source SARS-CoV-2 (PCR) Influenza Type A (PCR) Influenza Type B (PCR) RSV (PCR) 11/10/21 11/10/21 11/10/21 16:50 16:50 16:50 WBC 11.13 H RBC 4.25 L Hgb 13.6 Hct 40.8 MCV 96.0 H MCH 32.0 MCHC 33.3 RDW 13.2 Plt Count 177 MPV 9.3 Immature Gran % 0.3 Neutrophils % 66.8 Lymphocytes % 23.3 Monocytes % 8.1 Eosinophils % 1.2 Basophils % 0.3 Nucleated RBC % 0 Absolute Neutrophils 7.43 H Absolute Lymphocytes 2.59 Absolute Monocytes 0.90 H Absolute Eosinophils 0.13 Absolute Basophils 0.03 Sodium Potassium Chloride Carbon Dioxide Anion Gap BUN Creatinine Estimated GFR/1.73 m2 Glucose Hemoglobin A1c Calcium Phosphorus 4.5 Magnesium Total Bilirubin Conjugated Bilirubin AST ALT Alkaline Phosphatase Creatine Kinase 2760 H Troponin I Total Protein Albumin Lipase Vitamin B12 Folate Urine Color Urine Clarity Urine pH Ur Specific Gerry Urine Protein Urine Ketones Urine Blood Urine Nitrite Urine Bilirubin Urine Urobilinogen Ur Leukocyte Esterase Urine Glucose Salicylates Urine Opiates Screen Urine Methadone Screen Acetaminophen Ur Barbiturates Screen Ur Tricyclics Screen Ur Amphetamines Screen U Benzodiazepines Scrn Urine Cocaine Screen Ur THC Screen Ethyl Alcohol COVID-19 Source SARS-CoV-2 (PCR) Influenza Type A (PCR) Influenza Type B (PCR) RSV (PCR) 11/10/21 11/10/21 11/10/21 18:45 19:30 19:30 WBC RBC Hgb Hct MCV MCH MCHC RDW Plt Count MPV Immature Gran % Neutrophils % Lymphocytes % Monocytes % Eosinophils % Basophils % Nucleated RBC % Absolute Neutrophils Absolute Lymphocytes Absolute Monocytes Absolute Eosinophils Absolute Basophils Sodium Potassium Chloride Carbon Dioxide Anion Gap BUN Creatinine Estimated GFR/1.73 m2 Glucose Hemoglobin A1c Calcium Phosphorus Magnesium Total Bilirubin Conjugated Bilirubin AST ALT Alkaline Phosphatase Creatine Kinase Troponin I Total Protein Albumin Lipase Vitamin B12 Folate Urine Color Urine Clarity Urine pH Ur Specific Gerry Urine Protein Urine Ketones Urine Blood Urine Nitrite Urine Bilirubin Urine Urobilinogen Ur Leukocyte Esterase Urine Glucose Salicylates Urine Opiates Screen Negative Urine Methadone Screen Positive A Acetaminophen Ur Barbiturates Screen Negative Ur Tricyclics Screen Negative Ur Amphetamines Screen Positive A U Benzodiazepines Scrn Negative Urine Cocaine Screen Negative Ur THC Screen Negative Ethyl Alcohol COVID-19 Source Cancelled Nasopharynx SARS-CoV-2 (PCR) Cancelled Negative Influenza Type A (PCR) Negative Influenza Type B (PCR) Negative RSV (PCR) Negative 11/10/21 11/11/21 11/11/21 19:30 06:25 06:25 WBC 6.32 D RBC 4.32 L Hgb 14.0 Hct 41.6 MCV 96.3 H MCH 32.4 MCHC 33.7 RDW 13.4 Plt Count 164 MPV 9.7 Immature Gran % 0.0 Neutrophils % 45.5 Lymphocytes % 41.0 Monocytes % 9.2 Eosinophils % 4.0 Basophils % 0.3 Nucleated RBC % 0 Absolute Neutrophils 2.88 Absolute Lymphocytes 2.59 Absolute Monocytes 0.58 Absolute Eosinophils 0.25 Absolute Basophils 0.02 Sodium 140 Potassium 4.1 Chloride 105 Carbon Dioxide 30.3 Anion Gap 4.7 BUN 14 Creatinine 0.8 Estimated GFR/1.73 m2 >= 60.00 Glucose 99 Hemoglobin A1c Calcium 8.9 Phosphorus 3.8 Magnesium 2.2 Total Bilirubin 0.8 Conjugated Bilirubin 0.2 AST 55 H ALT 55 Alkaline Phosphatase 117 H Creatine Kinase 1088 H Troponin I Total Protein 6.5 Albumin 3.3 L Lipase Vitamin B12 1140 H Folate > 20.0 H Urine Color Yellow Urine Clarity Clear Urine pH 5.5 Ur Specific Gerry 1.010 Urine Protein Negative Urine Ketones Negative Urine Blood Negative Urine Nitrite Negative Urine Bilirubin Negative Urine Urobilinogen 0.2 Ur Leukocyte Esterase Negative Urine Glucose Negative Salicylates Urine Opiates Screen Urine Methadone Screen Acetaminophen Ur Barbiturates Screen Ur Tricyclics Screen Ur Amphetamines Screen U Benzodiazepines Scrn Urine Cocaine Screen Ur THC Screen Ethyl Alcohol COVID-19 Source SARS-CoV-2 (PCR) Influenza Type A (PCR) Influenza Type B (PCR) RSV (PCR) 11/11/21 06:25 WBC RBC Hgb Hct MCV MCH MCHC RDW Plt Count MPV Immature Gran % Neutrophils % Lymphocytes % Monocytes % Eosinophils % Basophils % Nucleated RBC % Absolute Neutrophils Absolute Lymphocytes Absolute Monocytes Absolute Eosinophils Absolute Basophils Sodium Potassium Chloride Carbon Dioxide Anion Gap BUN Creatinine Estimated GFR/1.73 m2 Glucose Hemoglobin A1c 4.9 Calcium Phosphorus Magnesium Total Bilirubin Conjugated Bilirubin AST ALT Alkaline Phosphatase Creatine Kinase Troponin I Total Protein Albumin Lipase Vitamin B12 Folate Urine Color Urine Clarity Urine pH Ur Specific Gerry Urine Protein Urine Ketones Urine Blood Urine Nitrite Urine Bilirubin Urine Urobilinogen Ur Leukocyte Esterase Urine Glucose Salicylates Urine Opiates Screen Urine Methadone Screen Acetaminophen Ur Barbiturates Screen Ur Tricyclics Screen Ur Amphetamines Screen U Benzodiazepines Scrn Urine Cocaine Screen Ur THC Screen Ethyl Alcohol COVID-19 Source SARS-CoV-2 (PCR) Influenza Type A (PCR) Influenza Type B (PCR) RSV (PCR) PAWSS Have you Been Recently Intoxicated or Drunk Within the Last 30 days?: Yes Have you Ever Experienced Previous Episodes of Alcohol Withdrawal?: Yes Have you ever Experienced Withdrawal Seizures?: Yes Have you ever Experienced Delirium Tremens(DT)s?: Yes Have you ever undergone Alcohol Rehabilitation Treatment (i.e, inpt ot outpatient treatment programs)?: Yes Have you ever Experienced Blackouts?: Yes Have you ever Combined Alcohol with other Downers within the last 90 days?: Yes Have you ever Combined Alcohol with any other Substance of Abuse during the last 90 days?: Yes Positive Blood Alcohol level on Presentation? [PCS.BAL]: Yes Evidence of Increased Autonomic Activity (i.e. HR>120, tremor, sweating, agitation, nausea)?: Yes Result: 10
[2021-11-11] MEDS: Normal Saline 1,000 ML 125 ML IV ×2 (15:55→23:33)
[2021-11-11] MEDS: Enoxaparin 40 MG/0.4 ML SYR SC (21:43)
[2021-11-12] VITALS (30 sets, daily range): BP systolic 108–165; BP diastolic 70–97; PULSE 51–126; RESP 7–24; TEMP 36.2–36.7; O2SAT 93–98
[2021-11-12] MEDS: chlordiazePOXIDE 25 MG CAP 50 MG PO ×4 (02:45→20:01)
[2021-11-12] MEDS: Normal Saline 1,000 ML 125 ML IV (07:06)
[2021-11-12 07:15] LABS: Creatine Kinase 339 U/L (39-308)
[2021-11-12] MEDS: Methadone Liquid 10 MG/ML 130 MG PO (08:37)
[2021-11-12] MEDS: Nicotine 14 MG/24 HR PATCH TD (08:37)
[2021-11-12] MEDS: FLUoxetine 10 MG TAB 30 MG PO (08:38)
[2021-11-12] MEDS: Lisdexamphetamine 40 MG CAP PO (08:39)
[2021-11-12] MEDS: Thiamine 100 MG TAB PO (08:39)
[2021-11-12] MEDS: Multivitamin TAB 1 TAB PO (08:39)
[2021-11-12] MEDS: Folic Acid 1 MG TAB PO (08:39)
[2021-11-12] MEDS: Normal Saline Flush 10 ML SYR IVP (08:40)
--- NOTE | 2021-11-12 09:29 | NUR.NOTE ---
While doing AM care at sink, patient stated, I am very jittery, still. I know I'm getting librium what else can I have? RN notified of this request. Nursing Note:
[2021-11-12] MEDS: cloNIDine 0.1 MG TAB 0.2 MG PO ×2 (09:36→20:01)
--- NOTE | 2021-11-12 09:57 | W.PULMCC ---
General Date of Service Date of service: 11/12/21 Time of Service: 07:30 Reason for Admission to ICU: EtOH withdrawal Assessment and Plan Assessment and plan (1) Elevated CK: Status: Acute (2) Alcohol abuse with withdrawal: Status: Acute (3) Alcohol withdrawal seizure: Status: Acute (4) Transaminitis: Status: Acute Assessment and plan: This is a 41 yo man with prior alcohol withdrawal episodes necessitating hospital admission who is admitted to ICU with alcohol withdrawal and a reported seizure prior to his admission. He is on Librium and prn Ativan. He is improved and only required PO Ativan overnight. He is able to eat and drink and no longer required any IVF's. He did not have rhabdomyolysis on admission as he did not have any KING and had no blood in his urine. His CK was likely simply elevated due to the seizure prior to admission as well as his other symptoms of withdrawal (shaking). He has been maintained on PO Ativan overnight and is safe for transfer to med/surg from my standpoint. Recommendations Pulmonary: No acute concerns Prophylactic care - Incentive spirometry and ambulation Cardiac: No acute concerns, QT is only 482 - fine to give QT prolonging meds such as methadone Renal: Elevated CK - no need for IVF's - has trended down - no need to further monitor I&O: Intake & Output 11/09/21 11/10/21 11/11/21 11/12/21 23:59 23:59 23:59 23:59 Intake Total 224.2 / 224.2 2469.267 / 2469.267 1450.00 / 1450.00 Output Total 850 / 850 650 / 650 625 / 625 Balance -625.8 / -625.8 1819.267 / 1819.267 825.00 / 825.00 Weight 61.235 kg 78.8 kg 80.5 kg Daily Fluid Goal:: Even GI Nutrition: Transaminitis - in the setting of alcohol abuse - he needs to abstain from alcohol Ok for regular PO diet Date of Last Bowel Movement: 11/10/21 Infectious Disease: No acute concerns Hematologic: No acute concerns Neurologic: Alcohol withdrawal - continue with benzodiazepine pathway and CIWA scoring - getting MVI, folate and thiamine Depression/Pain - continue home medications - on methadone Endocrine: No acute concerns Prophylaxis: Lovenox, no indication for GI ppx Code Status: Resuscitation Status Full Code Subjective Critical and life-threatening events over the past 24 hours: This is a 41 yo man admitted to the ICU for alcohol withdrawal. He has had withdrawal episodes and ever hospitalizations in the past. He initially was recommended for phenobarbital, however the patient refused this and states it did not work as well as the benzodiazepines. He reports a withdrawal seizure at home prior to admission. His last drink was Friday prior to getting admitted. On his labs he was found to have an elevated CK but without rhabdo as well as elevations of his LFT's without significant electrolyte derrangements or alcoholic ketoacidosis. He received fluids and banana bag. It seems as though he has been on fluids since his admission, although he is able to eat and drink. He states this morning he is feeling better but is still shakey. He only required PO Ativan overnight (no IV) and is on Librium. Exam Const General: no acute distress Nutritional Appearance: well nourished [facility] Head: normocephalic Ears: external ears normal and no periauricular adenopathy General nose exam: nasal mucous membranes and turbinates normal Face and sinus: sinuses nontender Mouth: oropharynx normal and moist mucous membranes Teeth and gingiva: dentition normal Eyes General: appearance normal, both eyes and all related structures Pupils: PERRL Neck Neck: normal visual inspection and no lymphadenopathy Chest Chest: normal inspection of the chest Resp Effort & Inspection: normal respiratory effort Auscultation: clear to auscultation bilaterally, no rales, no rhonchi and no wheezes Cardio Rate: regular rate Rhythm: regular rhythm Heart Sounds: S1 normal, S2 normal and no murmurs Pulses: radial pulses present bilaterally GI Inspection: normal to inspection Palpation: soft Skin General skin exam: no rashes or lesions noted Neuro General: patient alert, patient awake, patient oriented x3 and other (tremor) Extrem General: no clubbing, cyanosis or edema Psych Mental Status: mental status grossly normal Affect: normal affect Attitude: cooperative Most Recent VS/Results Last Vital Signs Temp 36.6 C 11/12/21 00:01 Pulse 57 L 11/12/21 06:00 Resp 12 11/12/21 06:00 BP 110/76 11/12/21 06:00 Pulse Ox 97 11/12/21 06:00 Laboratory Results - last 24 hr 11/12/21 06:20 Creatine Kinase 339 H Review of Systems All systems reviewed & are unremarkable except as noted in HPI and below Time spent with patient Time spent in Critical Care: 45 Time spent in Critical care included: Coordination of care, Chart review, Documenting critically ill care, Time at immediate bedside and Discussing critically ill care with other medical staff
--- NOTE | 2021-11-12 10:01 | CMPROGNOTE_ITS ---
- If Service Date Differs Date of service: 11/12/21 Time of Service: 10:02 Care Management Progress Note S/O: Jorge was sitting up in his bed when CM met with him. He had just gotten off the phone with his father. He has a phone at his bedside and able to talk with his family as needed. He shares that he feels good other than feeling anxious and shaky. He is still scoring an 11 on CIWA. CM will continue to follow. When he is medically cleared he will need to be screened by [facility]. A: 41 year old male admitted to [facility] on 11/10/21 for ETOH withdrawal, s/p ETOH withdrawal seizure P: Dangelo continues to be monitored at ICU level of care and treated for ETOH withdrawal. Methadone maintenance dose which is managed by [facility] in the community is also being administered. Once he is medically cleared he will be screened by [facility]. His discharge plan will be determined by that screening. He will either pursue hospitalization vs home with support from [facility] outpatient. Transportation to be determined by discharge. He will follow up with his PCP and discharge plan of care. CM will continue.
[2021-11-12 11:40] LABS: HBs Antibody, Qual Positive (See Note); HBs Antibody, Quant >1000.0 mIU/mL (See Note); Hepatitis B Core Antibody Negative (Negative); Hepatitis B surface Ag Negative (Negative); Hepatitis C Ab w Rflx HCV PCR Negative (Negative)
[2021-11-12] MEDS: LORazepam 1 MG TAB PO/SL ×3 (11:43→16:37)
--- NOTE | 2021-11-12 16:41 | W.PM.PROGNOT ---
Date of Service Date of service: 11/12/21 Time of Service: 16:41 Assessment and Plan Assessment and plan (1) Alcohol withdrawal: Status: Acute Assessment and plan: Admit to ICU. CIWA with prn lorazepam. He voices best results in past withdrawal with librium. Added scheduled librium. Banana bag in the ED. Oral thiamine and folate daily now. IVF. Monitor lytes. Seizure precautions. (2) Alcohol withdrawal seizure: Status: Acute Assessment and plan: As above (3) Rhabdomyolysis: Assessment and plan: IVF. Trend CPK, Cr. Monitor I/Os (4) Methadone dependence: Assessment and plan: We will verify methadone dosing with [facility] on Friday. Give dose he has on DEC today. (5) DVT prophylaxis: Status: Acute Assessment and plan: SC enoxaparin (6) Discharge planning issues: Status: Acute Assessment and plan: Full code Transfer from ICU to Med Surg status. Care management. Subjective Subjective Patient reports: no new complaints, tolerating a regular diet and afebrile; denies diarrhea, nausea, vomiting and shortness of breath Interval history since last seen: Headache. Tolerated liquids. Exam Const General: cooperative and no acute distress Nutritional Appearance: average body habitus Orientation: alert HENCA Head: normocephalic and other (R oriental orthodox with small ecchymoses) Mouth: abnormal tongue (R tongue with trauma/bite. No bleeding/hematoma.) Eyes General: appearance normal, both eyes and all related structures Sclera: sclerae normal Neck Neck: normal visual inspection and full ROM Resp Effort & Inspection: normal respiratory effort Auscultation: clear to auscultation bilaterally Cardio Rate: regular rate Rhythm: regular rhythm Heart Sounds: S1 normal and S2 normal GI Palpation: soft and nontender Auscultation: normal bowel sounds Neuro General: no focal motor deficits Speech: speech normal Motor: tremor (bilateral hands) Extrem General: no pedal edema and no calf tenderness Objective Last Vital Signs Temp 36.2 C L 11/12/21 08:30 Pulse 61 11/12/21 14:01 Resp 15 11/12/21 16:00 BP 131/83 11/12/21 14:01 Pulse Ox 96 11/12/21 12:01 Laboratory Results - last 24 hr 11/11/21 11/12/21 06:25 06:20 Creatine Kinase 339 H Hep Bs Antigen Negative Hep Bs Antibody Positive Hep Bs Antibody, Quant >1000.0 Hep B Core Total Ab Negative Hepatitis C Antibody Negative PAWSS Have you Been Recently Intoxicated or Drunk Within the Last 30 days?: Yes Have you Ever Experienced Previous Episodes of Alcohol Withdrawal?: Yes Have you ever Experienced Withdrawal Seizures?: Yes Have you ever Experienced Delirium Tremens(DT)s?: Yes Have you ever undergone Alcohol Rehabilitation Treatment (i.e, inpt ot outpatient treatment programs)?: Yes Have you ever Experienced Blackouts?: Yes Have you ever Combined Alcohol with other Downers within the last 90 days?: Yes Have you ever Combined Alcohol with any other Substance of Abuse during the last 90 days?: Yes Positive Blood Alcohol level on Presentation? [PCS.BAL]: Yes Evidence of Increased Autonomic Activity (i.e. HR>120, tremor, sweating, agitation, nausea)?: Yes Result: 10
[2021-11-12] MEDS: Enoxaparin 40 MG/0.4 ML SYR SC (23:23)
[2021-11-13] VITALS (26 sets, daily range): BP systolic 95–151; BP diastolic 56–99; PULSE 57–103; RESP 10–28; TEMP 36.4–36.8; O2SAT 94–97
[2021-11-13] MEDS: LORazepam 1 MG TAB PO/SL ×7 (01:14→20:11)
[2021-11-13] MEDS: chlordiazePOXIDE 25 MG CAP 50 MG PO ×2 (01:57→09:22)
--- NOTE | 2021-11-13 08:37 | CMPROGNOTE_ITS ---
- If Service Date Differs Date of service: 11/13/21 Time of Service: 08:37 Care Management Progress Note S/O: Dangelo was lying in bed when CM met with him. He was pleasant, anxious and asking for anxiety medications. RN is aware. Per provider, Dangelo's CIWA scores are lower today, but still above 10 at times. Dangelo is on day 3 of of ETOH withdrawal, historically days 3 and 4 are the hardest of him. Dangelo does c/o of increased anxiety throughout the day and at one point he wanted to leave the hospital, however he was easily redirected by his nurse. Dangelo continues to require close monitoring and medication for ETOH withdrawal and anxiety. Dangelo will need to be screened by [facility] when medically cleared by provider. A: 41 year old male admitted to [facility] on 11/10/21 for ETOH withdrawal, s/p ETOH withdrawal seizure P: Dangelo continues to be monitored at ICU level of care and treated for ETOH withdrawal. Methadone maintenance dose which is managed by [facility] in the community is also being administered. Once he is medically cleared he will be screened by [facility]. His discharge plan will be determined by that screening. He will either pursue hospitalization vs home with support from [facility] outpatient. Transportation to be determined by discharge. He will follow up with his PCP and discharge plan of care. CM will continue.
[2021-11-13] MEDS: Multivitamin TAB 1 TAB PO (09:23)
[2021-11-13] MEDS: Thiamine 100 MG TAB PO (09:23)
[2021-11-13] MEDS: FLUoxetine 10 MG TAB 30 MG PO (09:23)
[2021-11-13] MEDS: Methadone Liquid 10 MG/ML 130 MG PO (09:24)
[2021-11-13] MEDS: Lisdexamphetamine 40 MG CAP PO (09:24)
[2021-11-13] MEDS: Nicotine 14 MG/24 HR PATCH TD (09:25)
[2021-11-13] MEDS: cloNIDine 0.1 MG TAB 0.2 MG PO ×2 (09:26→20:11)
[2021-11-13] MEDS: Folic Acid 1 MG TAB PO (09:26)
[2021-11-13] MEDS: Acetaminophen 325 MG TAB PO (10:48)
--- NOTE | 2021-11-13 12:21 | W.PM.PROGNOT ---
Date of Service Date of service: 11/13/21 Time of Service: 12:21 Assessment and Plan Assessment and plan (1) Alcohol withdrawal: Status: Acute Assessment and plan: CIWA protocol. CIWA scores lower today than yesterday but still above 10 at times. Increase librium to 75mg po Q6H Cont oral thiamin and folate. (2) Alcohol withdrawal seizure: Status: Acute Assessment and plan: As above (3) Rhabdomyolysis: Assessment and plan: IVF. Trend CPK, Cr. Monitor I/Os (4) Methadone dependence: Assessment and plan: We will verify methadone dosing with [facility] on Friday. Give dose he has on DEC today. (5) DVT prophylaxis: Status: Acute Assessment and plan: SC enoxaparin (6) Discharge planning issues: Status: Acute Assessment and plan: Full code Transfer from ICU to Med Surg status. Care management. [facility] screening prior to d/c. He will plan to see his counsellor the day following d/c; he states he has a very good relationship with her. Subjective Subjective Patient reports: no new complaints, feels better, tolerating a regular diet and afebrile; denies nausea and vomiting Exam Const General: cooperative and no acute distress Nutritional Appearance: average body habitus Orientation: alert [facility] Head: normocephalic and other (R mu-ism with small ecchymoses) Mouth: abnormal tongue (R tongue with trauma/bite. No bleeding/hematoma.) Eyes General: appearance normal, both eyes and all related structures Sclera: sclerae normal Neck Neck: normal visual inspection and full ROM Resp Effort & Inspection: normal respiratory effort Auscultation: clear to auscultation bilaterally Cardio Rate: regular rate Rhythm: regular rhythm Heart Sounds: S1 normal and S2 normal GI Palpation: soft and nontender Auscultation: normal bowel sounds Neuro General: no focal motor deficits Speech: speech normal Motor: tremor (bilateral hands) Extrem General: no pedal edema and no calf tenderness Objective Last Vital Signs Temp 36.4 C L 11/13/21 08:40 Pulse 65 11/13/21 11:36 Resp 11 L 11/13/21 11:00 BP 151/99 H 11/13/21 11:36 Pulse Ox 97 11/13/21 11:36 PAWSS Have you Been Recently Intoxicated or Drunk Within the Last 30 days?: Yes Have you Ever Experienced Previous Episodes of Alcohol Withdrawal?: Yes Have you ever Experienced Withdrawal Seizures?: Yes Have you ever Experienced Delirium Tremens(DT)s?: Yes Have you ever undergone Alcohol Rehabilitation Treatment (i.e, inpt ot outpatient treatment programs)?: Yes Have you ever Experienced Blackouts?: Yes Have you ever Combined Alcohol with other Downers within the last 90 days?: Yes Have you ever Combined Alcohol with any other Substance of Abuse during the last 90 days?: Yes Positive Blood Alcohol level on Presentation? [PCS.BAL]: Yes Evidence of Increased Autonomic Activity (i.e. HR>120, tremor, sweating, agitation, nausea)?: Yes Result: 10
[2021-11-13] MEDS: chlordiazePOXIDE 25 MG CAP 75 MG PO ×3 (12:54→23:30)
--- NOTE | 2021-11-13 13:13 | NUR.NOTE ---
1310 Pt took his telemetry off and I educated him that it was ordered by the doctor and the only way we see his heart activity. I instructed him that we would not be able to recognize rhythm issues with it off and he states he understands and wants it off for now. He agreed to put it back on later when he feels less restless. Patient is cleaning and making phone calls. He is pleasant and redirectable but gets confused easily. Patient just got ativan 3mg PO and librium 75mg. Dr. Rogers wanted higher dose started at noon dosing. Nursing Note:
[2021-11-13] MEDS: LORazepam 2 MG/ML VIAL IVP ×3 (14:00→23:30)
[2021-11-13] MEDS: Normal Saline Flush 10 ML SYR IVP ×3 (14:01→23:30)
--- NOTE | 2021-11-13 15:15 | RT.EKG_ITS ---
APPROVED REPORT Exam: Resting ECG Reason for Exam: ST changes Patient Location: I HR:65 bpm ECG Measurements Heart Rate 65 AXIS IN 128 P 40 QRSd 94 QRS 31 QT 421 T 5 QTc 439 Conclusion Sinus rhythm...normal P axis, V-rate 60- 99 Probable left atrial enlargement...P >50mS, <-0.10mV V1
[2021-11-13] MEDS: Enoxaparin 40 MG/0.4 ML SYR SC (23:30)
[2021-11-14] VITALS (7 sets, daily range): BP systolic 116–138; BP diastolic 77–90; PULSE 61–89; RESP 10–16; TEMP 36.6–36.7; O2SAT 94–98
[2021-11-14] MEDS: chlordiazePOXIDE 25 MG CAP 75 MG PO (07:07)
[2021-11-14] MEDS: FLUoxetine 10 MG TAB 30 MG PO (08:09)
[2021-11-14] MEDS: Multivitamin TAB 1 TAB PO (08:09)
[2021-11-14] MEDS: cloNIDine 0.1 MG TAB 0.2 MG PO (08:09)
[2021-11-14] MEDS: Thiamine 100 MG TAB PO (08:10)
[2021-11-14] MEDS: Folic Acid 1 MG TAB PO (08:11)
[2021-11-14] MEDS: Lisdexamphetamine 40 MG CAP PO (08:12)
[2021-11-14] MEDS: Methadone Liquid 10 MG/ML 130 MG PO (08:12)
--- NOTE | 2021-11-14 08:25 | CMPROGNOTE_ITS ---
- If Service Date Differs Date of service: 11/14/21 Time of Service: 08:25 Care Management Progress Note S/O: Dr. Rogers would like to keep Dangelo over night for additional medication monitoring. Ry from [facility] cleared Dangelo from a [facility] standpoint. Dangelo spoke with a oil recovery unit operator via phone today. CM will clarify housing status with patient and offer community resources such as 211 or [place] assistance ([phone]) if needed. Dangelo shared with [facility] screener that he was homeless, however he advised CM that he lives with his dad in [facility]. He is quite anxious at the moment, CM will discuss in the morning. Per [facility] he is not appropriate for the Care Bed. A: 41 year old male admitted to [facility] on 11/10/21 for ETOH withdrawal, s/p ETOH withdrawal seizure P: Dangelo continues to be monitored at ICU level of care and treated for ETOH withdrawal. Methadone maintenance dose which is managed by [facility] in the community is also being administered. Once he is medically cleared he will be screened by [facility]. His discharge plan will be determined by that screening. He will either pursue hospitalization vs home with support from [facility] outpatient. Transportation to be determined by discharge. He will follow up with his PCP and discharge plan of care. CM will continue.
--- NOTE | 2021-11-14 08:25 | PDOC.CMPRO ---
- If Service Date Differs Date of service: 11/14/21 Time of Service: 08:25 Care Management Progress Note S/O: Dr. Rogers would like to keep Dangelo over night for additional medication monitoring. Ry from [facility] cleared Dangelo from a [facility] standpoint. Dangelo spoke with a recovery agent via phone today. CM will clarify housing status with patient and offer community resources such as 211 or [place] assistance ([phone]) if needed. Dangelo shared with [facility] screener that he was homeless, however he advised CM that he lives with his dad in [facility]. He is quite anxious at the moment, CM will discuss in the morning. Per [facility] he is not appropriate for the Care Bed. A: 41 year old male admitted to [facility] on 11/10/21 for ETOH withdrawal, s/p ETOH withdrawal seizure P: Dangelo continues to be monitored at ICU level of care and treated for ETOH withdrawal. Methadone maintenance dose which is managed by [facility] in the community is also being administered. Once he is medically cleared he will be screened by [facility]. His discharge plan will be determined by that screening. He will either pursue hospitalization vs home with support from [facility] outpatient. Transportation to be determined by discharge. He will follow up with his PCP and discharge plan of care. CM will continue.
--- NOTE | 2021-11-14 10:55 | DSE_ITS ---
DS: Diagnosis Discharge Diagnosis (1) Alcohol withdrawal: Status: Acute (2) Alcohol withdrawal seizure: Status: Acute (3) Methadone dependence: (4) DVT prophylaxis: Status: Acute (5) Discharge planning issues: Status: Acute Discharge Plan Disposition Patient Disposition: HOME Condition: Improving Discharge Details Reason For Visit: Alcohol Withdraw;s/p Alcohol Withdrawal Seizure Admit Date/Time: 11/10/21 18:11 Admit Provider: Sarita Gonzales Attending Provider: Sarita Gonzales Primary Care Provider: Sophia Kelsey Hospital Course Hospital Course: Follow up conversation tomorrow with PCP and arrange further follow ups. Home Meds and New Rx's Prescriptions: New folic acid 1 mg Tablet 1 mg PO QAM Qty: 0 RF: 0 thiamine mononitrate (vit B1) [Vitamin B-1 (mononitrate)] 100 mg Tablet 100 mg PO QAM Qty: 0 RF: 0 chlordiazepoxide HCl 10 mg capsule See Rx Instructions .ROUTE .COMPLEX PRNQty: 15 RF: 0 Continued multivitamin Tablet 1 tab PO DAILY RF: 0 methadone 5 MG/5 ML solution 130 mg PO DAILY RF: 0 clonidine HCl 0.2 mg tablet 0.2 mg PO BID Qty: 60 RF: 5 lisdexamfetamine 60 mg capsule 60 mg PO QAM MDD 60 Qty: 29 RF: 0 fluoxetine 20 mg capsule 20 mg PO DAILY RF: 0 Discharge Instructions Activity:: Activity as Tolerated Equipment/Supplies:: No Equipment Needed Diet:: As Tolerated Discharge Orders Discharge Orders: Discharge Order (Routine); Ordered 11/14/21 Ordered By: Eugene Rogers DS: Summary Time Spent with Patient providing and/or coordinating discharge services: Greater than 30 minutes Status at Discharge Functional status at discharge: independent ambulation Overall status at discharge: patient is progressing back to baseline Mental Status: other (Intermittent confusion) Speech and Movement: speech clear Mood: anxious mood Affect: anxious affect Exam Narrative Exam Narrative: Pt more anxious today. Voicing he would like to go home. Const General: cooperative and no acute distress Nutritional Appearance: average body habitus Orientation: alert, oriented to person and oriented to place HENCO Head: normocephalic and other (R evangelical with small ecchymoses) Mouth: abnormal tongue (R tongue with trauma/bite. No bleeding/hematoma.) Eyes General: appearance normal, both eyes and all related structures Sclera: sclerae normal Neck Neck: normal visual inspection and full ROM Resp Effort & Inspection: normal respiratory effort Auscultation: clear to auscultation bilaterally Cardio Rate: regular rate Rhythm: regular rhythm Heart Sounds: S1 normal and S2 normal GI Palpation: soft and nontender Auscultation: normal bowel sounds Neuro General: no focal motor deficits Speech: speech normal Motor: tremor (bilateral hands) Extrem General: no pedal edema and no calf tenderness Psych Appearance: grossly normal Speech and Movement: speech clear Mood: anxious mood Affect: anxious affect Thought Process: illogical Insight: limited Judgment: limited DS: Data Vitals/I&O Vitals and I&O: Vital Signs Temperature 36.6 C 11/14/21 07:26 Temperature Source Temporal Artery Scan 11/14/21 07:26 Pulse 89 11/14/21 07:24 Pulse Rhythm Regular 11/14/21 03:45 Pulse 65 11/13/21 19:14 Respiratory Rate 10 L 11/14/21 01:34 Respiratory Effort Non-Labored 11/14/21 07:26 Respiratory Depth Normal 11/14/21 07:26 Respiratory Pattern Normal 11/14/21 07:26 Blood Pressure 118/77 11/14/21 07:24 Blood Pressure Mean 85 11/14/21 07:24 Blood Pressure Position Supine 11/12/21 03:01 Pulse Oximetry 94 11/14/21 01:34 Oxygen Delivery Method Room Air 11/14/21 07:26 Oxygen Flow Rate 0 11/14/21 07:26 Pain Level 4 11/14/21 07:26 Intake & Output 11/13/21 11/13/21 11/14/21 11:59 23:59 11:59 Intake Total 500 / 750 250 / 750 Output Total 1750 / 1750 Balance -1250 / -1000 250 / -1000 Weight 78.1 kg Intake: IV 20 / 20 Oral 480 / 730 250 / 730 Output: Urine 1750 / 1750 Other: Urine Color Light Soumya Yellow Urine Appearance Clear Clear Urine Odor Strong Normal Comment Pt voided in [place] bathroom. Did not assess amount. Voiding Methods Urinal Bedside Commode Urinal PFSH All Active Problems (Updated 11/12/21 @ 10:07 by Tonya Hooker MD) Transaminitis (Acute) Elevated CK (Acute) Discharge planning issues (Acute) DVT prophylaxis (Acute) Alcohol withdrawal seizure (Acute) Alcohol withdrawal (Acute) Effusion of knee joint, left (Acute) Alcohol abuse with withdrawal (Acute) Family history of diabetes mellitus (DM) (Acute 09/05/17) Medical History (Updated 11/12/21 @ 10:07 by Tonya Hooker MD) ADD (attention deficit disorder) Alcoholism in remission (09/05/17) Inpatient program 01/2021, independent living program and AA with sponsor. Longest sobriety was 3 years; worse with Covid. Anxiety (09/05/17) Anxiety disorder Closed right ankle fracture (~09/2019) Erectile dysfunction (10/03/17) Gynecomastia, male (03/11/18) secondary to methadone Hyperglycemia (09/05/17) Hyperprolactinemia (04/15/18) Hypertension Hypogonadism, male (03/24/18) Pending appt with Dr. Charles at [facility] in [place] Internal derangement of left knee Methadone dependence (04/01/18) [facility] in [facility] Hx intranasal and oral use of opioids. Meets with therapist twice monthly; has had take-home in the past. Sprain of anterior cruciate ligament of left knee (~09/2019) Tobacco abuse (11/19/17) 1/2 ppd Family History (Updated 11/10/21 @ 20:31 by Sarita Gonzales MD) Mother Diabetes Cancer thyroid cancer Father Diabetes Essential hypertension Paternal Grandfather No problems noted. Maternal Grandfather Stroke Paternal Uncle Cancer stomach cancer Social History Smoking/Tobacco Use Status: Current every day Tobacco Type: cigarettes Smoking risk assessment performed?: Yes Alcohol Intake: current Alcohol type: beer and hard liquor Drug use: Current Sobriety Substance use type: former substance user Household members: other Details: 3 other men in recovery. 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
--- NOTE | 2021-11-14 11:12 | PHA.REVIEW ---
Pharmacy Admission Review - Admission Clinical Review (Last Updated 11/12/21 @ 10:07 by Tonya Hooker MD) Transaminitis (Acute) Elevated CK (Acute) Discharge planning issues (Acute) DVT prophylaxis (Acute) Alcohol withdrawal seizure (Acute) Alcohol withdrawal (Acute) Alcohol abuse with withdrawal (Acute) No Known Allergies Allergy (Verified 11/07/21 14:36) Resuscitation Status Full Code Height 5 ft 8 in Weight 78.1 kg - Renal Dosing Renal Dosing: BUN 14 mg/dL (7-18) 11/11/21 06:25 Creatinine 0.8 mg/dL (0.70-1.30) 11/11/21 06:25 Medications needing adjustments: Reviewed List of meds needing interventions: eCrCl >100 ml/min - Anticoagulation Anticoagulation: Hgb 14.0 g/dL (13.5-17.5) 11/11/21 06:25 Hct 41.6 % (40.0-50.0) 11/11/21 06:25 Plt Count 164 10^3/uL (130-400) 11/11/21 06:25 Creatinine 0.8 mg/dL (0.70-1.30) 11/11/21 06:25 DVT Prophylaxis: Reviewed Medications: Enoxaparin - Opiate Usage Evaluate Pain Scale/Pains Meds: N/A - Relevant Labs Sodium 140 mmol/L (136-145) 11/11/21 06:25 Potassium 4.1 mmol/L (3.5-5.1) 11/11/21 06:25 Chloride 105 mmol/L (98-107) 11/11/21 06:25 Phosphorus 3.8 mg/dL (2.6-4.7) 11/11/21 06:25 Magnesium 2.2 mg/dL (1.8-2.4) 11/11/21 06:25 Electrolytes, C-Reactive P, ESR: Reviewed - DM Control DM Control: Glucose 99 mg/dL (74-106) 11/11/21 06:25 Hemoglobin A1c 4.9 % (<5.7) 11/11/21 06:25 Insulin Dosing: N/A - Heart Failure/NC Heart Failure/NC: Troponin I < 50 ng/L (<or=60) 11/10/21 16:50 EF%, DANISH's, B-Blockers, Diuretics: Reviewed - BP Control BP Control: Blood Pressure 118/77 Blood Pressure 131/90 Blood Pressure 131/90 If elevated: Reviewed - Qtc Review If Elevated: Reviewed List meds needing interventions: QTc 486 on admission - IV to PO Switch IV Medications: Reviewed - Home Meds Home Med List reviewed: Intervened Relevent Home Meds Not ordered & why?: corrected fluoxetine dose - Current meds Current Medication Order Review: Reviewed
[2021-11-14] MEDS: chlordiazePOXIDE 25 MG CAP 50 MG PO ×2 (13:24→17:19)
--- NOTE | 2021-11-14 16:26 | PDOC.CMDIS ---
- If Service Date Differs Date of service: 11/14/21 Time of Service: 16:26 LACE Index Scoring Tool - Questions: Length of Stay (in days): 4 - 6 Acuity (Admit via E.D.?): Yes E.D. Visits: 6 - Answers: Total Score: 11 Risk of Readmission: High Risk Care Management Discharge Reason for Hospitalization: ETOH Withdrawal, s/p alcohol withdrawal seizure Discharge Plan: Discharge home via private vehicle with dad. Take medications as prescribed. Follow up with your instructional technology coach, therapist and community providers. Patient/Family Education Needs: Review discharge instructions, medications and plan to follow up with community providers. ask me three.
[2021-11-14] MEDS: THIAMINE 500 MG in Normal Saline 100 ML 200 MG IVPB (17:04)
[2021-11-14] MEDS: Normal Saline Flush 10 ML SYR IVP (17:06)
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
== END 2021-11-14 18:00 | disposition home or self-care (01) | DRG 897 ==
LOC: ER 18:12 → ICU 19:58
PROVIDERS: Family Medicine; Admitting Provider Internal Medicine; Emergency Provider Nurse Practitioner Family; PCP Family Medicine; Visit Provider Internal Medicine
DX: M62.82 Rhabdomyolysis; F10.239 Alcohol dependence with withdrawal, unspecified; F11.20 Opioid dependence, uncomplicated; F10.229 Alcohol dependence with intoxication, unspecified; F98.8 Other specified behavioral and emotional disorders with onset usually occurring in childhood and adolescence; F41.9 Anxiety disorder, unspecified; N62 Hypertrophy of breast; I10 Essential (primary) hypertension; F17.210 Nicotine dependence, cigarettes, uncomplicated; Y90.6 Blood alcohol level of 120-199 mg/100 ml; R74.01 Elevation of levels of liver transaminase levels; R56.9 Unspecified convulsions
CPT/HCPCS: 36415; 80048; 80053; 80076; 80307; 82550; 83690; 86704; 86706; 86803; 87340; 87635; 87637; 93005; 96365; 96366; 96375; 99285; J1650; 80320; 80329; 81003; 82607; 82746; 83036; 83735; 84100; 84484; 85025; 93010; 99232; 99233; 99238; 99291; J2060; J3490

== ENCOUNTER 2021-11-24 16:31 | Emergency (ER) | payer MEDICAID, SELFPAY ==
[2021-11-24] VITALS (21 sets, daily range): BP systolic 97–144; BP diastolic 57–115; PULSE 64–88; RESP 11–23; TEMP 36.1–36.5; O2SAT 92–99
--- NOTE | 2021-11-24 16:45 | RT.EKG_ITS ---
APPROVED REPORT Exam: Resting ECG Reason for Exam: etoh Patient Location: E HR:81 bpm ECG Measurements Heart Rate 81 AXIS MA 151 P 46 QRSd 107 QRS 32 QT 411 T -11 QTc 476 Conclusion Sinus rhythm...normal P axis, V-rate 60- 99
[2021-11-24 17:36] LABS: Abs Immature Grans 0.03 10^3/uL (0.0-0.06); Absolute Basophil Count 0.02 10^3/uL (0.0-0.2); Absolute Eosinophil Count 0.21 10^3/uL (0.0-0.7); Absolute Lymphocyte Count 2.86 10^3/uL (1.2-3.4); Absolute Monocyte Count 0.52 10^3/uL (0.1-0.8); Absolute Neutrophil Count 2.31 10^3/uL (1.2-6.7); Basophils % 0.3; Eosinophils % 3.5; Immature Grans % 0.5; Lymphocytes % 48.1; MCH 31.6 pg (27.0-33.0); MCHC 33.3 % (32.0-36.0); MCV 94.8 fL (80-95); MPV 8.9 fL (8.0-11.0); Monocytes % 8.7; Neutrophils % 38.9; Nucleated RBC 0 %; Platelet Count 232 10^3/uL (130-400); RBC 4.43 10^6/uL (4.36-5.78); RDW 12.3 % (11.8-14.1); WBC 5.95 10^3/uL (4.4-10.8)
[2021-11-24] MEDS: LORazepam 2 MG/ML VIAL IVP (17:42)
[2021-11-24] MEDS: Normal Saline Flush 10 ML SYR IVP (17:43)
[2021-11-24 17:45] LABS: ETHANOL BLOOD 177.1 mg/dL (<10)
[2021-11-24 17:51] LABS: *AMPHETAMINES SCREEN URINE Negative (Negative); *BARBITURATES SCREEN URINE Negative (Negative); *BENZODIAZEPINES SCREEN URINE Positive (Negative); Cannabinoids THC Negative (Negative); Cocaine Screen,Urine Negative (Negative); METHADONE URINE SCREEN Positive (Negative); OPIATES URINE SCREEN Negative (Negative)
[2021-11-24 17:52] LABS: Tricyclic Antidepressants Negative (Negative)
[2021-11-24 17:52] LABS: ALT 70 U/L (16-63); AST 40 U/L (15-37); Albumin 3.5 g/dL (3.4-5.0); Alkaline Phosphatase 100 U/L (46-116); Anion Gap 7.3 mmol/L (3-11); BUN 13 mg/dL (7-18); Bilirubin, Total 0.1 mg/dL (0.2-1.0); CO2 30.7 mmol/L (21.0-32.0); CREATININE 0.8 mg/dL (0.70-1.30); Calcium 8.9 mg/dL (8.5-10.1); Chloride 103 mmol/L (98-107); Glucose 85 mg/dL (74-106); Potassium 3.7 mmol/L (3.5-5.1); Sodium 141 mmol/L (136-145); Total Protein 7.1 g/dL (6.4-8.2); Troponin I < 50 ng/L (<or=60)
--- NOTE | 2021-11-24 19:17 | ED.GENADUL_ITS ---
Discharge Plan Disposition Patient Disposition: HOME Condition: Stable Discharge Details Clinical Impression: Alcohol abuse Primary Care Provider: Sophia Kelsey ED Provider: Jaz Rondon Home Meds and New Rx's Prescriptions: New chlordiazepoxide HCl 25 mg capsule 25 mg PO BID Qty: 6 RF: 0 Continued multivitamin Tablet 1 tab PO DAILY RF: 0 methadone 5 MG/5 ML solution 130 mg PO DAILY RF: 0 clonidine HCl 0.2 mg tablet 0.2 mg PO BID Qty: 60 RF: 5 lisdexamfetamine 60 mg capsule 60 mg PO QAM MDD 60 Qty: 29 RF: 0 folic acid 1 mg Tablet 1 mg PO QAM Qty: 0 RF: 0 thiamine mononitrate (vit B1) [Vitamin B-1 (mononitrate)] 100 mg Tablet 100 mg PO QAM Qty: 0 RF: 0 chlordiazepoxide HCl 10 mg capsule See Rx Instructions .ROUTE .COMPLEX PRNQty: 15 RF: 0 fluoxetine 20 mg capsule 20 mg PO DAILY RF: 0 Discharge Instructions Instructions: Abuse of Alcohol (ED) Additional Instructions: I have given you a couple of tablets of Librium, do not combine this with alcohol, it can make you stop breathing The best way to detox yourself is to cut down by 1 drink a day until you completely Do not suspect an alcohol suddenly career coach was talking to you about inpatient options., If you truly are interested in detox, this is a valuable resource Please return should he have new or worsening complaints Referrals: Sophia Kelsey MD [Primary Care Provider] - Discharge Data Discharge Date/Time-TO BE ENTERED AT DEPARTURE: 11/24/21 19:45 Medical Decision Making Patient initially is presenting in alcohol withdrawal, however with distraction, patient patient has notable resolution in his tremulousness, agitation, and paresthesias Patient is not diaphoretic, he has not hypertensive, and he has not had a cardiac, he has no tongue fasciculations There is no evidence of actual alcohol withdrawal upon further assessment I suspect patient may be seeking benzodiazepines After long discussion 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 I also spoke with his mother x6 doses of Librium, his mother will apply any and will not administer if he has had any alcohol consumption Patient is stable for discharge home at this time, he is not suicidal or homicidal, he is alert, oriented, and clinically sober on my assessment in the emergency room His diagnostic labs are reassuring His vital signs on reassessment are within normal limits He only received 1 mg of Ativan in the emergency room Stable for discharge home the care of his mother at this time Medical Records Medical records reviewed: Yes I reviewed the patient's medical records. Lab Data Lab results reviewed: Yes I reviewed the patient's lab results. HPI General Mode of arrival: ambulatory . Date/Time Provider Initiated Documentation: 11/24/21 16:36 . Limitations to Documentation: no limitations . Information obtained by: patient . HPI Narrative: This 41-year-old gentleman with history of alcohol abuse presents to the emergency room with reports of being in withdrawal symptoms. He states that his last drink secondary to the hospital. He states he had approximately a pint of vodka today. He states he drinks about half a gallon of vodka daily. Chest pain or shortness of breath. He denies any dizziness or weakness. He denies any suicidal or homicidal ideation. He states he feels very anxious. He also states he is feeling tremulous. Denies any falls or injuries. States he started drinking the day he was discharged from the hospital. When asked regarding whether he went to detox as an outpatient he states that he thought he could do it at home . He denies any additional illicit drug use. Related Data Home Medications Medication Instructions Recorded Confirmed methadone 130 mg PO DAILY ml 09/05/17 11/10/21 multivitamin 1 tab PO DAILY 08/15/21 11/10/21 clonidine HCl 0.2 mg tablet 0.2 mg PO BID #60 tab 10/05/21 11/10/21 lisdexamfetamine 60 mg capsule 60 mg PO QAM #29 cap MDD 60 11/06/21 11/10/21 fluoxetine 20 mg PO DAILY 11/07/21 11/14/21 chlordiazepoxide HCl See Rx Instructions .ROUTE 11/14/21 .COMPLEX PRN #15 cap folic acid 1 mg PO QAM #0 tab 11/14/21 thiamine mononitrate (vit B1) 100 mg PO QAM #0 tab 11/14/21 [Vitamin B-1 (mononitrate)] chlordiazepoxide HCl 25 mg PO BID #6 cap 11/24/21 Previous Rx's Medication Instructions Recorded clonidine HCl 0.2 mg tablet 0.2 mg PO BID #60 tab 10/05/21 lisdexamfetamine 60 mg capsule 60 mg PO QAM #29 cap MDD 60 11/06/21 chlordiazepoxide HCl See Rx Instructions .ROUTE 11/14/21 .COMPLEX PRN #15 cap folic acid 1 mg PO QAM #0 tab 11/14/21 thiamine mononitrate (vit B1) 100 mg PO QAM #0 tab 11/14/21 [Vitamin B-1 (mononitrate)] chlordiazepoxide HCl 25 mg PO BID #6 cap 11/24/21 Allergies Allergy/AdvReac Type Severity Reaction Status Date / Time No Known Allergies Allergy Verified 11/07/21 14:36 General Stated Complaint: ETOHWithdr PACO: 2 Review of Systems All systems reviewed & are unremarkable except as noted in HPI and below PFSH All Active Problems (Updated 11/15/21 @ 00:05 by STEPHANIE RAI) Alcohol abuse (Chronic) Effusion of knee joint, left (Acute) Alcohol abuse with withdrawal (Acute) Family history of diabetes mellitus (DM) (Acute 09/05/17) Medical History (Updated 11/15/21 @ 00:05 by STEPHANIE RAI) ADD (attention deficit disorder) Alcoholism in remission (09/05/17) Inpatient program 01/2021, independent living program and AA with sponsor. Longest sobriety was 3 years; worse with Covid. Anxiety (09/05/17) Anxiety disorder Closed right ankle fracture (~09/2019) Erectile dysfunction (10/03/17) Gynecomastia, male (03/11/18) secondary to methadone Hyperglycemia (09/05/17) Hyperprolactinemia (04/15/18) Hypertension Hypogonadism, male (03/24/18) Pending appt with Dr. Charles at [facility] in [place] Internal derangement of left knee Methadone dependence (04/01/18) [facility] in [facility] Hx intranasal and oral use of opioids. Meets with therapist twice monthly; has had take-home in the past. Sprain of anterior cruciate ligament of left knee (~09/2019) Tobacco abuse (11/19/17) 1/2 ppd Family History (Updated 11/10/21 @ 20:31 by Sarita Gonzales MD) Mother Diabetes Cancer thyroid cancer Father Diabetes Essential hypertension Paternal Grandfather No problems noted. Maternal Grandfather Stroke Paternal Uncle Cancer stomach cancer Social History Smoking/Tobacco Use Status: Current every day Tobacco Type: cigarettes Smoking risk assessment performed?: Yes Alcohol Intake: current Alcohol type: beer and hard liquor Drug use: Daily Substance use type: former substance user Household members: other Details: 3 other men in recovery. 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 Exam Const General: comfortable and no acute distress HENMT Head: normal to inspection and no palpable skull fracture Mouth: oral mucosae normal Other: Eyes Other: No icterus Neck Other: No midline tenderness Resp Effort & Inspection: normal respiratory effort Auscultation: clear to auscultation bilaterally Cardio Rate: regular rate Rhythm: regular rhythm GI Other: No abdominal tenderness, no hepatomegaly, no splenomegaly or tenderness Skin General skin exam: no rashes or lesions noted Neuro General: patient alert and patient oriented x3 Cranial Nerves: CN's II-XI intact bilaterally and tongue midline Gait: normal gait Motor: strength 5/5 throughout Psych Mood: labile mood Course Vital Signs Vital signs: Vital Signs Temperature 36.1 C L 11/24/21 16:34 Pulse 88 11/24/21 16:34 Respiratory Rate 16 11/24/21 16:34 Blood Pressure 144/91 H 11/24/21 16:34 Pulse Oximetry 96 11/24/21 16:34 Temperature 36.1 C L 11/24/21 16:34 Temperature Source Skin 11/24/21 16:34 Pulse 68 11/24/21 18:01 Pulse 66 11/24/21 18:10 Respiratory Rate 13 11/24/21 18:10 Respiratory Effort 11/24/21 16:52 Respiratory Pattern Normal 11/24/21 16:42 Blood Pressure 102/63 11/24/21 18:01 Blood Pressure Mean 72 11/24/21 18:01 Pulse Oximetry 94 11/24/21 18:10 Oxygen Delivery Method Room Air 11/24/21 16:34 Oxygen Flow Rate 0 11/24/21 16:34 Comment 11/24/21 16:34 Lab/Test Results Lab/Test Results: Laboratory Tests Range/Units 11/24/21 11/24/21 11/24/21 17:26 17:30 17:30 WBC (4.4-10.8) 10^3/uL 5.95 RBC (4.36-5.78) 10^6/uL 4.43 Hgb (13.5-17.5) g/dL 14.0 Hct (40.0-50.0) % 42.0 MCV (80-95) fL 94.8 MCH (27.0-33.0) pg 31.6 MCHC (32.0-36.0) % 33.3 RDW (11.8-14.1) % 12.3 Plt Count (130-400) 10^3/uL 232 MPV (8.0-11.0) fL 8.9 Immature Gran % 0.5 Neutrophils % 38.9 Lymphocytes % 48.1 Monocytes % 8.7 Eosinophils % 3.5 Basophils % 0.3 Nucleated RBC % % 0 Absolute Neutrophils (1.2-6.7) 10^3/uL 2.31 Absolute Lymphocytes (1.2-3.4) 10^3/uL 2.86 Absolute Monocytes (0.1-0.8) 10^3/uL 0.52 Absolute Eosinophils (0.0-0.7) 10^3/uL 0.21 Absolute Basophils (0.0-0.2) 10^3/uL 0.02 Sodium (136-145) mmol/L 141 Potassium (3.5-5.1) mmol/L 3.7 Chloride (98-107) mmol/L 103 Carbon Dioxide (21.0-32.0) mmol/L 30.7 Anion Gap (3-11) mmol/L 7.3 BUN (7-18) mg/dL 13 Creatinine (0.70-1.30) mg/dL 0.8 Estimated GFR/1.73 m2 (mL/min/1.73m2) >= 60.00 Glucose (74-106) mg/dL 85 Calcium (8.5-10.1) mg/dL 8.9 Magnesium (1.8-2.4) mg/dL 2.0 Total Bilirubin (0.2-1.0) mg/dL 0.1 L AST (15-37) U/L 40 H ALT (16-63) U/L 70 H Alkaline Phosphatase (46-116) U/L 100 Troponin I (<or=60) ng/L < 50 Total Protein (6.4-8.2) g/dL 7.1 Albumin (3.4-5.0) g/dL 3.5 Urine Opiates Screen (Negative) Negative Urine Methadone Screen (Negative) Positive A Ur Barbiturates Screen (Negative) Negative Ur Tricyclics Screen (Negative) Negative Ur Amphetamines Screen (Negative) Negative U Benzodiazepines Scrn (Negative) Positive A Urine Cocaine Screen (Negative) Negative Ur THC Screen (Negative) Negative Ethyl Alcohol (<10) mg/dL Range/Units 11/24/21 17:30 WBC (4.4-10.8) 10^3/uL RBC (4.36-5.78) 10^6/uL Hgb (13.5-17.5) g/dL Hct (40.0-50.0) % MCV (80-95) fL MCH (27.0-33.0) pg MCHC (32.0-36.0) % RDW (11.8-14.1) % Plt Count (130-400) 10^3/uL MPV (8.0-11.0) fL Immature Gran % Neutrophils % Lymphocytes % Monocytes % Eosinophils % Basophils % Nucleated RBC % % Absolute Neutrophils (1.2-6.7) 10^3/uL Absolute Lymphocytes (1.2-3.4) 10^3/uL Absolute Monocytes (0.1-0.8) 10^3/uL Absolute Eosinophils (0.0-0.7) 10^3/uL Absolute Basophils (0.0-0.2) 10^3/uL Sodium (136-145) mmol/L Potassium (3.5-5.1) mmol/L Chloride (98-107) mmol/L Carbon Dioxide (21.0-32.0) mmol/L Anion Gap (3-11) mmol/L BUN (7-18) mg/dL Creatinine (0.70-1.30) mg/dL Estimated GFR/1.73 m2 (mL/min/1.73m2) Glucose (74-106) mg/dL Calcium (8.5-10.1) mg/dL Magnesium (1.8-2.4) mg/dL Total Bilirubin (0.2-1.0) mg/dL AST (15-37) U/L ALT (16-63) U/L Alkaline Phosphatase (46-116) U/L Troponin I (<or=60) ng/L Total Protein (6.4-8.2) g/dL Albumin (3.4-5.0) g/dL Urine Opiates Screen (Negative) Urine Methadone Screen (Negative) Ur Barbiturates Screen (Negative) Ur Tricyclics Screen (Negative) Ur Amphetamines Screen (Negative) U Benzodiazepines Scrn (Negative) Urine Cocaine Screen (Negative) Ur THC Screen (Negative) Ethyl Alcohol (<10) mg/dL 177.1 H PAWSS Have you Been Recently Intoxicated or Drunk Within the Last 30 days?: Yes Have you Ever Experienced Previous Episodes of Alcohol Withdrawal?: Yes Have you ever Experienced Withdrawal Seizures?: Yes Have you ever undergone Alcohol Rehabilitation Treatment (i.e, inpt ot outpatient treatment programs)?: Yes Have you ever Combined Alcohol with other Downers within the last 90 days?: No Have you ever Combined Alcohol with any other Substance of Abuse during the last 90 days?: No Evidence of Increased Autonomic Activity (i.e. HR>120, tremor, sweating, agitation, nausea)?: Yes Result: 5
[2021-11-24] MEDS: LORazepam 1 MG TAB PO (19:46)
== END 2021-11-24 19:45 | disposition home or self-care (01) ==
PROVIDERS: Emergency Provider Physician Assistant; PCP Family Medicine
DX: F10.10 Alcohol abuse, uncomplicated (principal)
CPT/HCPCS: 36415; 80053; 80307; 93005; 99283; 80320; 83735; 84484; 85025; 93010; J2060

== ENCOUNTER 2021-11-26 09:30 | Emergency (ER) | payer MEDICAID, SELFPAY ==
[2021-11-26] VITALS (22 sets, daily range): BP systolic 95–142; BP diastolic 51–100; PULSE 56–168; RESP 10–24; TEMP 36.4–36.9; O2SAT 94–96
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
[2021-11-26 10:25] LABS: Abs Immature Grans 0.03 10^3/uL (0.0-0.06); Absolute Basophil Count 0.02 10^3/uL (0.0-0.2); Absolute Eosinophil Count 0.08 10^3/uL (0.0-0.7); Absolute Lymphocyte Count 1.96 10^3/uL (1.2-3.4); Absolute Monocyte Count 0.56 10^3/uL (0.1-0.8); Absolute Neutrophil Count 5.32 10^3/uL (1.2-6.7); Basophils % 0.3; HCT 43.8 % (40.0-50.0); HGB 14.8 g/dL (13.5-17.5); Immature Grans % 0.4; Lymphocytes % 24.6; MCH 32.1 pg (27.0-33.0); MCHC 33.8 % (32.0-36.0); MPV 9.1 fL (8.0-11.0); Neutrophils % 66.7; Nucleated RBC 0 %; Platelet Count 263 10^3/uL (130-400); RBC 4.61 10^6/uL (4.36-5.78); RDW 12.5 % (11.8-14.1); RDW-SD 43.4 fL; WBC 7.97 10^3/uL (4.4-10.8)
[2021-11-26 10:30] LABS: Bilirubin Negative (Negative); Blood Negative (Negative); Clarity Clear (Clear); Glucose Negative (Negative); Ketones Negative (Negative); Leukocyte Esterase Negative (Negative); Nitrite Negative (Negative); Urobilinogen 0.2 EU/dL (Up TO 0.2)
[2021-11-26 10:32] LABS: Source Nasal/Nares
[2021-11-26 10:39] LABS: PHOSPHORUS 4.1 mg/dL (2.6-4.7)
[2021-11-26 10:43] LABS: *AMPHETAMINES SCREEN URINE Negative (Negative); *BARBITURATES SCREEN URINE Negative (Negative); *BENZODIAZEPINES SCREEN URINE Positive (Negative); Cannabinoids THC Negative (Negative); Cocaine Screen,Urine Negative (Negative); METHADONE URINE SCREEN Positive (Negative); OPIATES URINE SCREEN Negative (Negative)
[2021-11-26 10:46] LABS: ALT 62 U/L (16-63); AST 33 U/L (15-37); Albumin 3.7 g/dL (3.4-5.0); Alkaline Phosphatase 117 U/L (46-116); BUN 16 mg/dL (7-18); Bilirubin, Total 0.2 mg/dL (0.2-1.0); CREATININE 0.8 mg/dL (0.70-1.30); Chloride 101 mmol/L (98-107); ETHANOL BLOOD 91.8 mg/dL (<10); Glucose 88 mg/dL (74-106); Lipase 54 U/L (73-393); Magnesium 2.2 mg/dL (1.8-2.4); Potassium 4.2 mmol/L (3.5-5.1); Sodium 139 mmol/L (136-145); TSH (W/Ref FT4) 1.32 uIU/mL (0.36-3.74); Total Protein 7.5 g/dL (6.4-8.2); Tricyclic Antidepressants Negative (Negative)
[2021-11-26 11:35] LABS: COVID-19 PCR POSITIVE (Negative)
--- NOTE | 2021-11-26 11:54 | PDOC.MHCN ---
Date of service: 11/26/21 Time of Service: 11:55 Mental Health Crisis Note Presenting Issue How did you arrive at the ED and why did you come: Pt arrived to the ED presenting with depression and alcohol withdrawal. Precipitating Factors Pt denied SI/HI. Disposition BEHAVIOR: Pt was clam and cooperative. EYE CONTACT: Client maintained prolonged eye contact. MOOD: Pt reports he feels severely depressed, a lot of things have boiled up. AFFECT: Normal. APPETITE: Client reports he has a poor appetite nearly everyday. SLEEP(trouble falling/staying asleep: Client reports he has trouble staying sleep. Plan Pt is denying SI/HI. He denied clinicians suggestion to contact the [facility]. In-house referral for therapy will be made. Client will be making a PCP appointment to get a referral to psychiatry, and also connecting with his [facility] therapist. Client is being discharged on a safety plan. Referrals to psychiatric hospitals will be made today 11/26/21. Due to low risk, the pt will wait at home for placement. Signature Clinician's Name/Title: Antonia Paulino, ESC
--- NOTE | 2021-11-26 13:55 | NUR.NOTE ---
At the request of Shantel [facility] the labs and provider note was faxed to [facility] for referrals. Nancy Payan Nursing Note:
== END 2021-11-26 12:28 | disposition home or self-care (01) ==
PROVIDERS: Emergency Provider Physician Assistant; PCP Family Medicine
DX: F10.20 Alcohol dependence, uncomplicated (principal); U07.1 COVID-19; F32.A Depression, unspecified; Z20.822 Contact with and (suspected) exposure to COVID-19
CPT/HCPCS: 80053; 80307; 83690; 87635; 99283; 80320; 81003; 83735; 84100; 84443; 85025

== ENCOUNTER 2021-11-27 20:24 | Emergency (ER) | payer MEDICAID, SELFPAY ==
--- NOTE | 2021-11-27 20:28 | W.ED.GENAD ---
Discharge Plan Disposition Patient Disposition: HOME Condition: Stable Discharge Details Clinical Impression: COVID, Cellulitis of arm, left, Depression Primary Care Provider: Sophia Kelsey ED Provider: Amy Hicks Home Meds and New Rx's Prescriptions: New cephalexin 500 mg capsule 500 mg PO QID Qty: 38 RF: 0 Continued multivitamin Tablet 1 tab PO DAILY RF: 0 methadone 5 MG/5 ML solution 130 mg PO DAILY RF: 0 clonidine HCl 0.2 mg tablet 0.2 mg PO BID Qty: 60 RF: 5 lisdexamfetamine 60 mg capsule 60 mg PO QAM MDD 60 Qty: 29 RF: 0 folic acid 1 mg Tablet 1 mg PO QAM Qty: 0 RF: 0 thiamine mononitrate (vit B1) [Vitamin B-1 (mononitrate)] 100 mg Tablet 100 mg PO QAM Qty: 0 RF: 0 chlordiazepoxide HCl 25 mg capsule 25 mg PO BID Qty: 6 RF: 0 fluoxetine 20 mg capsule 20 mg PO DAILY RF: 0 Discharge Instructions Instructions: Cellulitis (ED), Depression (ED) Stand Alone Forms: POSITIVE COVID-19/NO TESTING, Work Release Referrals: Sophia Kelsey MD [Primary Care Provider] - Medical Decision Making <ESTRELLITA Soares - Last Filed: 11/27/21 22:07> This is a 41-year-old male presenting to the ER for worsening depression, vague suicidal ideation without a plan or desire to act upon it. He admits to drinking a pint of vodka today and there are no signs of withdrawal currently. He does have left arm cellulitis and I will provide 500 p.o. Keflex. Given he is asymptomatic, tested negative today at home for Covid, I will retest now. Given he may need hospitalization, I will obtain routine screening laboratory values. I have placed a care plan, requested a mental health evaluation and a CPSO. I received a call from the mental health team, while I was on the call his alcohol level result but at 212. They are unable to evaluate him with his alcohol level as it currently is and they plan to evaluate him tomorrow morning between 6 and 7 AM. Laboratory values do not reveal any signs of leukocytosis or anemia. His sodium is 140 with a potassium of 4.0. His anion gap is 12.1 with a BUN of 25. Creatinine 1.0, GFR greater than 60. Glucose 87. TSH 3.85. Urine negative for infection, tox screen positive for methadone and benzodiazepines, as above alcohol 212. COVID test is positive Patient reevaluated at 2205, sleeping. Thus far he has been pleasant and cooperative. No signs of any withdrawal. Medical Records Medical records reviewed: Yes I reviewed the patient's medical records. <Amy Hicks MD - Last Filed: 11/28/21 09:57> Patient signed out to me by Dr. Gleason at time of shift change with mental health evaluation pending, anticipate likely discharge to home based on improvement from initial presentation. On my encounter with patient, he reports that he feels much better, he states that he has fleeting suicidal thoughts at times but is not having any currently and feels quite safe to go home. Patient reports that he has no plan to hurt himself and would never actually do anything to harm himself intentionally. He reports that cellulitis of his left arm seems unchanged since initial presentation. Patient reports that he has a friend who is going to stay with him in his house to take care of him who knows that he is Covid positive, patient states that he plans to isolate in the bedroom away from his caregiver. My exam there is cellulitis of the left AC fossa with no lymphangitic streaking, full range of motion of the elbow. Exam/history at this time is not consistent with septic arthritis, DVT, sepsis. Patient is overall well and nontoxic-appearing, clinically sober with clear speech, lucid thought process, normal gait. Patient has decision-making capacity. Patient was evaluated by mental health, who states that she feels that patient is safe for discharge to home with outpatient follow-up, patient was given resources for alcohol use disorder treatment and for mental health treatment. Patient is requesting discharge at this time. Rx for Keflex. I had a discussion with Patient regarding return to emergency department precautions, home care, and importance of outpatient follow-up. Pt verbalizes understanding of the plan and is amenable. Patient discharged to home with clear plan for outpatient follow-up. All questions were answered. Disposition decision was made weighing the risks and benefits of hospitalization versus outpatient treatment, the risk for further decompensation, and the patient's wishes. Medical Records Medical records reviewed: Yes I reviewed the patient's medical records. HPI <ESTRELLITA Soares - Last Filed: 11/27/21 22:07> General Mode of arrival: ambulatory. Date/Time Provider Initiated Documentation: 11/27/21 20:25. Limitations to Documentation: no limitations. Information obtained by: patient. HPI Narrative: This is a 41-year-old male, past medical history of chronic alcohol abuse with withdrawal, report alcohol withdrawal seizures and DTs typically on day 3, presenting to the ER for the 3rd time in 5 days for evaluation, at this time reporting worsening depression with thoughts of hopelessness and not caring if he lives, vaguely suicidal without a specific plan. Patient states that after his ER visit yesterday when he was diagnosed with a positive Covid test his isolation is now making his overall depression worse. He remains otherwise asymptomatic, took a home Covid test today and was negative. He denies ever trying to harm himself. Patient states that he drank approximately a pint of vodka today and is not currently having any withdrawals. He does have an area of redness on his left arm from the IV stick yesterday which is now red and painful. Patient states that he has received his 2 Covid vaccines but no booster Related Data Home Medications Medication Instructions Recorded Confirmed methadone 130 mg PO DAILY ml 09/05/17 11/28/21 multivitamin 1 tab PO DAILY 08/15/21 11/27/21 clonidine HCl 0.2 mg tablet 0.2 mg PO BID #60 tab 10/05/21 11/27/21 lisdexamfetamine 60 mg capsule 60 mg PO QAM #29 cap MDD 60 11/06/21 11/27/21 fluoxetine 20 mg PO DAILY 11/07/21 11/27/21 folic acid 1 mg PO QAM #0 tab 11/14/21 11/26/21 thiamine mononitrate (vit B1) 100 mg PO QAM #0 tab 11/14/21 11/26/21 [Vitamin B-1 (mononitrate)] chlordiazepoxide HCl 25 mg PO BID #6 cap 11/24/21 11/26/21 cephalexin 500 mg PO QID #38 cap 11/28/21 Previous Rx's Medication Instructions Recorded clonidine HCl 0.2 mg tablet 0.2 mg PO BID #60 tab 10/05/21 lisdexamfetamine 60 mg capsule 60 mg PO QAM #29 cap MDD 60 11/06/21 folic acid 1 mg PO QAM #0 tab 11/14/21 thiamine mononitrate (vit B1) 100 mg PO QAM #0 tab 11/14/21 [Vitamin B-1 (mononitrate)] chlordiazepoxide HCl 25 mg PO BID #6 cap 11/24/21 cephalexin 500 mg PO QID #38 cap 11/28/21 Allergies Allergy/AdvReac Type Severity Reaction Status Date / Time No Known Allergies Allergy Verified 11/27/21 20:36 General PACO: 2 Review of Systems <ESTRELLITA Soares - Last Filed: 11/27/21 22:07> Constitutional Constitutional: Denies fatigue, Denies fever(s), Denies headache(s) and Denies weakness Eyes Eyes: Denies change in vision ENT Ears, Nose, Mouth, and Throat: Denies headache(s) Cardiovascular Cardiovascular: Denies chest pain and Denies dyspnea Respiratory Respiratory: Denies cough and Denies dyspnea Gastrointestinal Gastrointestinal: Denies abdominal pain, Denies nausea and Denies vomiting Musculoskeletal Musculoskeletal: Denies back pain, Denies numbness and Denies tingling Integumentary/Breasts Skin/Breast: Reports erythema Neurologic Neurologic: Denies headache(s), Denies numbness, Denies tingling and Denies weakness Psychiatric Psychiatric: Reports depression, Denies homicidal ideation and Reports suicidal ideation Endocrine Endocrine: Denies fatigue PFSH <ESTRELLITA Soares - Last Filed: 11/27/21 22:07> All Active Problems (Updated 11/28/21 @ 08:57 by Amy Hicks MD) Alcohol abuse (Chronic) Depression (Chronic) COVID (Acute) Cellulitis of arm, left (Acute) Effusion of knee joint, left (Acute) Alcohol abuse with withdrawal (Acute) Family history of diabetes mellitus (DM) (Acute 09/05/17) Medical History ADD (attention deficit disorder) Alcoholism in remission (09/05/17) Inpatient program 01/2021, independent living program and AA with sponsor. Longest sobriety was 3 years; worse with Covid. Anxiety (09/05/17) Anxiety disorder Closed right ankle fracture (~09/2019) Erectile dysfunction (10/03/17) Gynecomastia, male (03/11/18) secondary to methadone Hyperglycemia (09/05/17) Hyperprolactinemia (04/15/18) Hypertension Hypogonadism, male (03/24/18) Pending appt with Dr. Charles at [facility] in [place] Internal derangement of left knee Methadone dependence (04/01/18) [facility] in [facility]. Hx intranasal and oral use of opioids. Meets with therapist twice monthly; has had take-home in the past. Sprain of anterior cruciate ligament of left knee (~09/2019) Tobacco abuse (11/19/17) 1/2 ppd Family History Mother Diabetes Cancer thyroid cancer Father Diabetes Essential hypertension Paternal Grandfather No problems noted. Maternal Grandfather Stroke Paternal Uncle Cancer stomach cancer Social History Smoking/Tobacco Use Status: Current every day Tobacco Type: cigarettes Smoking risk assessment performed?: Yes Alcohol Intake: current Alcohol type: beer and hard liquor Substance use type: does not use Details: [facility] Household members: other Details: 3 other men in recovery. 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 Exam <ESTRELLITA Soares - Last Filed: 11/27/21 22:07> Const General: cooperative, healthy appearing, comfortable and no acute distress Orientation: alert, awake and oriented x3 HENMT Head: normal to inspection, normocephalic and atraumatic Face and sinus: normal facial exam Mouth: moist mucous membranes Eyes General: appearance normal, both eyes and all related structures Conjunctivae: conjunctivae normal Neck Neck: normal visual inspection, trachea midline and supple Resp Effort & Inspection: normal respiratory effort and able to speak in complete sentences Auscultation: clear to auscultation bilaterally Cardio Rate: regular rate Rhythm: regular rhythm GI Palpation: soft and nontender Back/Spine/Pelvis Back: No back tenderness Skin General skin exam: erythema Neuro General: patient alert, patient awake, patient oriented x3, moves all extremities and no focal motor deficits Cognition: normal cognition Speech: speech normal Gait: normal gait Motor: muscle tone normal throughout Sensory Exam: no sensory deficits noted Extrem General: full ROM and capillary refill normal Psych Appearance: grossly normal Mental Status: mental status grossly normal Speech and Movement: speech and movement normal Mood: dysthymic mood Affect: sad Attitude: cooperative Thought Process: normal Thought Content: suicidality Insight: fair Judgment: fair Sign Out <ESTRELLITA Soares - Last Filed: 11/27/21 22:07> Sign Out Data: Sign Out Comment: Depression with SI but no plan and no intention to act upon them. Vaccinated x2 but no booster, asymptomatic, Covid positive. Left forearm cellulitis, given 500 p.o. Keflex. Alcohol 212 awaiting mental health evaluation between 6-7 AM in the morning on 11-28-21 Last updated by Gabo Conde PA at 11/27/21 22:40 Sign Out Comment: Stable of the night, during the tube to 3 separate dose from 50 mg Librium prescribed at night to help him sleeping/Anxiety. pending health mental reassess Last updated by Win Gleason DO at 11/28/21 06:55
[2021-11-27 20:32] VITALS: BP 157/98; PULSE 95; RESP 16; TEMP 36.9; O2SAT 93
[2021-11-27 21:03] LABS: Abs Immature Grans 0.02 10^3/uL (0.0-0.06); Absolute Basophil Count 0.02 10^3/uL (0.0-0.2); Absolute Eosinophil Count 0.13 10^3/uL (0.0-0.7); Absolute Lymphocyte Count 3.63 10^3/uL (1.2-3.4); Absolute Monocyte Count 0.54 10^3/uL (0.1-0.8); Absolute Neutrophil Count 4.12 10^3/uL (1.2-6.7); Basophils % 0.2; Eosinophils % 1.5; HCT 43.9 % (40.0-50.0); HGB 14.7 g/dL (13.5-17.5); Immature Grans % 0.2; Lymphocytes % 42.9; MCH 32.2 pg (27.0-33.0); MCHC 33.5 % (32.0-36.0); MCV 96.3 fL (80-95); Monocytes % 6.4; Neutrophils % 48.8; Nucleated RBC 0 %; Platelet Count 257 10^3/uL (130-400); RBC 4.56 10^6/uL (4.36-5.78); RDW 12.7 % (11.8-14.1); RDW-SD 45.1 fL; WBC 8.46 10^3/uL (4.4-10.8)
[2021-11-27] MEDS: Cephalexin 500 MG CAP PO (21:13)
[2021-11-27 21:18] LABS: Source Nasal/Nares
[2021-11-27 21:19] LABS: Bilirubin Negative (Negative); Blood Negative (Negative); Clarity Clear (Clear); Glucose Negative (Negative); Ketones Negative (Negative); Leukocyte Esterase Negative (Negative); Nitrite Negative (Negative); Urobilinogen 0.2 EU/dL (Up TO 0.2); pH 5.5 (5-8)
[2021-11-27 21:32] LABS: ALT 54 U/L (16-63); AST 28 U/L (15-37); Albumin 3.8 g/dL (3.4-5.0); Alkaline Phosphatase 128 U/L (46-116); Anion Gap 12.1 mmol/L (3-11); BUN 25 mg/dL (7-18); Bilirubin, Total 0.2 mg/dL (0.2-1.0); CO2 24.9 mmol/L (21.0-32.0); Calcium 8.9 mg/dL (8.5-10.1); Chloride 103 mmol/L (98-107); Glucose 87 mg/dL (74-106); Sodium 140 mmol/L (136-145); TSH (W/Ref FT4) 3.85 uIU/mL (0.36-3.74); Total Protein 7.9 g/dL (6.4-8.2)
[2021-11-27 21:46] LABS: *AMPHETAMINES SCREEN URINE Negative (Negative); *BARBITURATES SCREEN URINE Negative (Negative); *BENZODIAZEPINES SCREEN URINE Positive (Negative); Cannabinoids THC Negative (Negative); Cocaine Screen,Urine Negative (Negative); METHADONE URINE SCREEN Positive (Negative); OPIATES URINE SCREEN Negative (Negative)
[2021-11-27 21:49] LABS: Tricyclic Antidepressants Negative (Negative)
[2021-11-27 21:57] LABS: FREE T4 0.78 ng/dL (0.76-1.46)
[2021-11-27 22:00] LABS: COVID-19 PCR POSITIVE (Negative)
[2021-11-28 00:30] VITALS: PULSE 71; RESP 20; TEMP 36.9; O2SAT 95
[2021-11-28] MEDS: chlordiazePOXIDE 25 MG CAP 50 MG PO ×2 (00:35→04:05)
[2021-11-28 09:08] VITALS: BP 148/108; PULSE 89; RESP 17; TEMP 37; O2SAT 97
[2021-11-28] MEDS: Cephalexin 500 MG CAP PO (09:10)
--- NOTE | 2021-11-28 14:32 | PDOC.MHCN ---
Date of service: 11/28/21 Time of Service: 14:33 Mental Health Crisis Note Presenting Issue How did you arrive at the ED and why did you come: Pt arrived via himself on 11.27.2021 reporting thoughts of SI but no plan or intent and was intoxicated at the time of arrival. Precipitating Factors Pt denied SI and HI of ideation, intent or plan. He denied NSSI. and is not showing any signs of delusions. Disposition BEHAVIOR: Pt is cooperative but antsy to leave so he does not miss his BAART dosing before 10:30am even though it is only 8:30am. . EYE CONTACT: Pt makes good eye contact. MOOD: Mood is unremarkable. AFFECT: Affect is congruent. APPETITE: Appetite is normal. SLEEP(trouble falling/staying asleep: Pt reported average sleep. Plan Pt does not meet criteria for inpatient referral due to lack of symptoms. It is suspected that he is more in need of substance abuse treatment but is not willing to engage in this at this time stating he thinks it is more mental than ETOH abuse. Pt to be discharged home to quarantine with a friend. Pt requested an in house referral for counseling which will be done by this clinician. Pt once quarantined for the expected time will call [facility] to request further assessment and referral if needed for inpatient. Signature Clinician's Name/Title: Barbara Turner MS, [facility] Emergency Services Clinician, [facility]
== END 2021-11-28 09:11 | disposition home or self-care (01) ==
PROVIDERS: Physician Assistant; Emergency Provider Student in an Organized Health Care Education/Training Program; PCP Family Medicine
DX: U07.1 COVID-19 (principal); F32.A Depression, unspecified; L03.114 Cellulitis of left upper limb; F10.10 Alcohol abuse, uncomplicated; Y90.7 Blood alcohol level of 200-239 mg/100 ml; R45.851 Suicidal ideations
CPT/HCPCS: 36415; 80053; 80307; 87635; 99284; 99285; 80320; 81003; 84439; 84443; 85025

== ENCOUNTER 2021-12-19 19:28 | Inpatient (IN) | payer MEDICAID, SELFPAY ==
[2021-12-19 19:42] VITALS: BP 129/81; PULSE 154; RESP 18; TEMP 36.8; O2SAT 95
--- NOTE | 2021-12-19 20:01 | W.ED.GENAD ---
Discharge Plan Disposition Patient Disposition: [facility] INPATIENT Condition: Fair Discharge Details Chief Complaint: PsychEval Clinical Impression: Alcohol withdrawal, Depression with suicidal ideation Primary Care Provider: Sophia Kelsey ED Provider: Eugene Handy Home Meds and New Rx's Prescriptions: No Action multivitamin Tablet 1 tab PO DAILY 0RF fluoxetine 40 mg capsule 40 mg PO DAILY Qty: 30 0RF lisdexamfetamine 60 mg capsule 60 mg PO QAM MDD 60 Qty: 28 0RF methadone 5 MG/5 ML solution 130 mg PO DAILY 0RF Label Comments: Patient states he got his dose yesterday. clonidine HCl 0.2 mg tablet 0.2 mg PO BID Qty: 60 5RF folic acid 1 mg Tablet 1 mg PO QAM Qty: 0 0RF thiamine mononitrate (vit B1) [Vitamin B-1 (mononitrate)] 100 mg Tablet 100 mg PO QAM Qty: 0 0RF cephalexin 500 mg capsule 500 mg PO QID Qty: 38 0RF Medical Decision Making 41-year-old male history of daily alcohol abuse, methadone dependence, present with evidence of alcohol withdrawal, tachycardia tremulous psychomotor agitation, last drink before arrival, drinks approximately half gallon of vodka per day, endorses suicidal ideation with thoughts of suffocating with helium or jumping in front of traffic. Redirectable, cooperative, no external signs of trauma. Tachycardia likely related to alcohol withdrawal. Fluids benzos basic labs alcohol level U tox. Low suspicion for electrolyte abnormality or infectious process or intracranial process. Likely will need admission for treatment of alcohol withdrawal. Will also need psychiatric evaluation during this admission. 21: 32 patient resting much more comfortably after benzos and fluids, heart rate has gone from the 150s to the 110s, tremulousness has improved, will need admission medically for management of alcohol withdrawal. Will also need psychiatric evaluation given suicidal ideation. HPI General Date/Time Provider Initiated Documentation: 12/19/21 19:56. HPI Narrative: 41-year-old male history of alcohol abuse approximately 1/2 gallon of vodka per day chronically, methadone dependence was denied his dose today for not complying with breathalyzer protocol, presents with suicidal ideation, thinking of suffocating with helium and or jumping in front of a truck, last drink just before arrival, feels tremulous and anxious. Denies allergies to any medications. Denies any self injures behavior today Related Data Home Medications Medication Instructions Recorded Confirmed methadone 5 mg/5 mL oral solution 130 mg PO DAILY ml 09/05/17 11/30/21 multivitamin 1 tab PO DAILY 08/15/21 11/30/21 clonidine HCl 0.2 mg tablet 0.2 mg PO BID #60 tab 10/05/21 11/30/21 folic acid 1 mg tablet 1 mg PO QAM #0 tab 11/14/21 11/30/21 thiamine mononitrate (vit B1) 100 100 mg PO QAM #0 tab 11/14/21 11/30/21 mg tablet (Vitamin B-1 (mononitrate)) cephalexin 500 mg capsule 500 mg PO QID #38 cap 11/28/21 11/30/21 fluoxetine 40 mg capsule 40 mg PO DAILY #30 cap 11/30/21 11/30/21 lisdexamfetamine 60 mg capsule 60 mg PO QAM #28 cap MDD 60 11/30/21 11/30/21 Previous Rx's Medication Instructions Recorded clonidine HCl 0.2 mg tablet 0.2 mg PO BID #60 tab 10/05/21 folic acid 1 mg tablet 1 mg PO QAM #0 tab 11/14/21 thiamine mononitrate (vit B1) 100 100 mg PO QAM #0 tab 11/14/21 mg tablet (Vitamin B-1 (mononitrate)) cephalexin 500 mg capsule 500 mg PO QID #38 cap 11/28/21 fluoxetine 40 mg capsule 40 mg PO DAILY #30 cap 11/30/21 lisdexamfetamine 60 mg capsule 60 mg PO QAM #28 cap MDD 60 11/30/21 Allergies Allergy/AdvReac Type Severity Reaction Status Date / Time No Known Allergies Allergy Verified 12/19/21 19:56 General Stated Complaint: PsychEval PACO: 2 Review of Systems Narrative: Review of Systems Constitutional: Tremulous Eyes: negative ENT: negative Cardiovascular: negative Respiratory: negative Gastrointestinal: negative : negative Musculoskeletal: negative Skin: negative Neurologic: negative Psych: Depression, SI PFSH All Active Problems (Updated 12/19/21 @ 21:35 by Eugene Handy MD) Alcohol withdrawal (Acute) Depression with suicidal ideation (Acute) Anxiety (Acute 09/05/17) Methadone dependence (Acute 04/01/18) BA[facility] in [facility] Hx intranasal and oral use of opioids. Meets with therapist twice monthly; has had take-home in the past. Alcohol abuse (Chronic) Inpatient program 01/2021, independent living program and AA with sponsor. Longest sobriety was 3 years; worse with Covid. Depression (Chronic) COVID (Acute) Cellulitis of arm, left (Acute) Alcohol abuse with withdrawal (Acute) Family history of diabetes mellitus (DM) (Acute 09/05/17) Medical History (Updated 12/19/21 @ 21:35 by Eugene Handy MD) ADD (attention deficit disorder) Closed right ankle fracture (~09/2019) Erectile dysfunction (10/03/17) Gynecomastia, male (03/11/18) secondary to methadone Hyperglycemia (09/05/17) Hyperprolactinemia (04/15/18) Hypertension Hypogonadism, male (03/24/18) Pending appt with Dr. Charles at [facility] in [place] Internal derangement of left knee QT prolongation Sprain of anterior cruciate ligament of left knee (~09/2019) Tobacco abuse (11/19/17) 1/2 ppd Family History Mother Diabetes Cancer thyroid cancer Father Diabetes Essential hypertension Paternal Grandfather No problems noted. Maternal Grandfather Stroke Paternal Uncle Cancer stomach cancer Social History Smoking/Tobacco Use Status: Current every day Tobacco Type: cigarettes Smoking risk assessment performed?: Yes Alcohol Intake: current Alcohol Intake frequency: 3 or more drinks per day Alcohol type: beer and hard liquor Drug use: Occasionally Substance use type: does not use Details: normally drinks 1/2 gallon per 24 hours Household members: other Details: 3 other men in recovery. 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 Current gender identity: male Do you feel safe at home: Yes Do you feel safe in your relationship?: Yes Exam Narrative Exam Narrative: Physical Examination General: alert, awake, cooperative, restless, psychomotor agitation HEENT: normocephalic, atraumatic; PERRL, EOM intact, conjunctiva normal; no nasal discharge; moist mucous membranes, oral and pharyngeal mucosa normal, tolerating secretions Neck: supple, trachea midline; full ROM Chest: normal to inspection Respiratory: normal respiratory effort, speaking in full sentences, clear to auscultation, no wheezing, rales or rhonchi Cardiac: Tachycardia, regular rhythm, S1S2 intact, no murmurs rubs or gallops GI: abdomen soft, non-tender, non-distended; no palpable mass or hepatosplenomegaly Skin: no lesions, rashes or trauma appreciated Neuro: AAOx3, normal speech, moving all extremities; tremor/fasciculation of hand and arms Extremities: Full range of motion no trauma Psych: Depression, SI Course Vital Signs Vital signs: Vital Signs Temperature 36.8 C 12/19/21 19:42 Pulse 154 H 12/19/21 19:42 Respiratory Rate 18 12/19/21 19:42 Blood Pressure 129/81 12/19/21 19:42 Pulse Oximetry 95 12/19/21 19:42 Temperature 36.8 C 12/19/21 19:42 Temperature Source Skin 12/19/21 19:42 Pulse 154 H 12/19/21 19:42 Respiratory Rate 18 12/19/21 19:42 Blood Pressure 129/81 12/19/21 19:42 Blood Pressure Position Sitting 12/19/21 19:42 Pulse Oximetry 95 12/19/21 19:42 Oxygen Delivery Method Room Air 12/19/21 19:42 Oxygen Flow Rate 0 12/19/21 19:42 Pain Level 8 12/19/21 19:42 Comment + ETOH at clinic 12/19/21 19:42
[2021-12-19] MEDS: Normal Saline 1,000 ML 1000 ML IV ×2 (20:15→21:27)
[2021-12-19 20:21] LABS: Abs Immature Grans 0.01 10^3/uL (0.0-0.06); Absolute Basophil Count 0.04 10^3/uL (0.0-0.2); Absolute Lymphocyte Count 1.71 10^3/uL (1.2-3.4); Absolute Monocyte Count 0.52 10^3/uL (0.1-0.8); Absolute Neutrophil Count 5.42 10^3/uL (1.2-6.7); Basophils % 0.5; HCT 45.8 % (40.0-50.0); HGB 15.8 g/dL (13.5-17.5); Immature Grans % 0.1; Lymphocytes % 22.2; MCH 33.1 pg (27.0-33.0); MCHC 34.5 % (32.0-36.0); MCV 95.8 fL (80-95); MPV 8.8 fL (8.0-11.0); Monocytes % 6.8; Neutrophils % 70.4; Nucleated RBC 0 %; Platelet Count 233 10^3/uL (130-400); RBC 4.78 10^6/uL (4.36-5.78); RDW-SD 46.3 fL
[2021-12-19] MEDS: chlordiazePOXIDE 25 MG CAP 50 MG PO (20:23)
[2021-12-19] MEDS: LORazepam 2 MG/ML VIAL IVP (20:24)
[2021-12-19 20:29] LABS: ALT 165 U/L (16-63); AST 60 U/L (15-37); Albumin 4.5 g/dL (3.4-5.0); Alkaline Phosphatase 140 U/L (46-116); Anion Gap 9.5 mmol/L (3-11); BUN 9 mg/dL (7-18); Bilirubin, Total 0.2 mg/dL (0.2-1.0); CO2 28.5 mmol/L (21.0-32.0); CREATININE 0.9 mg/dL (0.70-1.30); Calcium 9.4 mg/dL (8.5-10.1); Chloride 101 mmol/L (98-107); ETHANOL BLOOD 163.4 mg/dL (<10); Glucose 147 mg/dL (74-106); Potassium 3.5 mmol/L (3.5-5.1); Sodium 139 mmol/L (136-145); Total Protein 8.6 g/dL (6.4-8.2)
--- NOTE | 2021-12-19 20:30 | RT.EKG_ITS ---
APPROVED REPORT Exam: Resting ECG Reason for Exam: tachycardia, etoh withdrawal Patient Location: E HR:122 bpm ECG Measurements Heart Rate 122 AXIS AK 159 P 0 QRSd 98 QRS 45 QT 339 T 259 QTc 483 Conclusion Sinus tachycardia...rate> 99 Probable left atrial enlargement...P >50mS, <-0.10mV V1 Nonspecific repol abnormality, diffuse leads...ST dep, T flat/neg, ant/lat/inf sinus tachycardia, normal axis, non ischemic
[2021-12-19 21:30] LABS: *AMPHETAMINES SCREEN URINE Negative (Negative); *BARBITURATES SCREEN URINE Negative (Negative); *BENZODIAZEPINES SCREEN URINE Positive (Negative); Cannabinoids THC Negative (Negative); Cocaine Screen,Urine Negative (Negative); METHADONE URINE SCREEN Positive (Negative); OPIATES URINE SCREEN Negative (Negative)
[2021-12-19 21:34] LABS: Tricyclic Antidepressants Negative (Negative)
[2021-12-19 21:48] LABS: Source Nasal/Nares
--- NOTE | 2021-12-19 21:49 | HPE_ITS ---
Date of service: 12/19/21 Time of Service: 21:49 Assessment and Plan Assessment and plan (1) Depression with suicidal ideation: Status: Acute Assessment and plan: Depression with SI, all in context of alcohol withdrawal, and probably an element of opiate w/d at this point too, along with Clonidine withdrawal/rebound playing unquantified role. Will continue benzos(schediuled and prn), resume Clonidine, and will give half dose usual methadone tonight (we do not actually have documentation of missed dose this morning). Will maintain on suicide precautions. Mental health eval once sober. History of Present Illness History of Present Illness Chief Complaint: suicidal thoughts Narrative: 41 male with h/o substance abuse, alcohol abuse, on Methadone, h/o ADHD, anxiety and depression. States he has been feeling more depressed recently due to an accumulation of events (lost job, recent COVID dx with isolation). Drinking more. Today was refused his usual methadone due to alcohol level. Comes in with thoughts of self harm (run into traffic). In ER eval of note for initial tachycardia and tremulous, with EtOH level 163. Given IVF, 2 m,g Ativan IV and 50 Librium. I was asked to evaluate for admission. Labs otherwise of note for AST 60, ALT 165, T Bili 0.2; UDS positive Methadone, benzos. EKG sinus tach. Patient states he feels safe here. Does report h/o single w/d seizure. Is usually on Clonidine but has not taken for several days. Review of Systems Narrative: per HPI PFSH All Active Problems Alcohol withdrawal (Acute) Depression with suicidal ideation (Acute) Anxiety (Acute 09/05/17) Methadone dependence (Acute 04/01/18) [facility] in [facility] Hx intranasal and oral use of opioids. Meets with therapist twice monthly; has had take-home in the past. Alcohol abuse (Chronic) Inpatient program 01/2021, independent living program and AA with sponsor. Longest sobriety was 3 years; worse with Covid. Depression (Chronic) COVID (Acute) Cellulitis of arm, left (Acute) Alcohol abuse with withdrawal (Acute) Family history of diabetes mellitus (DM) (Acute 09/05/17) Medical History ADD (attention deficit disorder) Closed right ankle fracture (~09/2019) Erectile dysfunction (10/03/17) Gynecomastia, male (03/11/18) secondary to methadone Hyperglycemia (09/05/17) Hyperprolactinemia (04/15/18) Hypertension Hypogonadism, male (03/24/18) Pending appt with Dr. Charles at [facility] in [place] Internal derangement of left knee QT prolongation Sprain of anterior cruciate ligament of left knee (~09/2019) Tobacco abuse (11/19/17) 1/2 ppd Family History Mother Diabetes Cancer thyroid cancer Father Diabetes Essential hypertension Paternal Grandfather No problems noted. Maternal Grandfather Stroke Paternal Uncle Cancer stomach cancer Social History Smoking/Tobacco Use Status: Current every day Tobacco Type: cigarettes Smoking risk assessment performed?: Yes Alcohol Intake: current Alcohol Intake frequency: 3 or more drinks per day Alcohol type: beer and hard liquor Drug use: Occasionally Substance use type: does not use Details: normally drinks 1/2 gallon per 24 hours Household members: other Details: 3 other men in recovery. 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 Current gender identity: male Do you feel safe at home: Yes Do you feel safe in your relationship?: Yes Meds Allergies and Home Medications Allergies Allergy/AdvReac Type Severity Reaction Status Date / Time No Known Allergies Allergy Verified 12/19/21 19:56 Home Medications Medication Instructions Recorded Confirmed Type methadone 5 mg/5 mL oral solution 130 mg PO DAILY ml 09/05/17 11/30/21 History multivitamin 1 tab PO DAILY 08/15/21 11/30/21 History clonidine HCl 0.2 mg tablet 0.2 mg PO BID #60 tab 10/05/21 11/30/21 Rx folic acid 1 mg tablet 1 mg PO QAM #0 tab 11/14/21 11/30/21 Rx thiamine mononitrate (vit B1) 100 100 mg PO QAM #0 tab 11/14/21 11/30/21 Rx mg tablet (Vitamin B-1 (mononitrate)) cephalexin 500 mg capsule 500 mg PO QID #38 cap 11/28/21 11/30/21 Rx fluoxetine 40 mg capsule 40 mg PO DAILY #30 cap 11/30/21 11/30/21 Rx lisdexamfetamine 60 mg capsule 60 mg PO QAM #28 cap MDD 60 11/30/21 11/30/21 Rx Exam Narrative Exam Narrative: 129/81, 154 (initial, during visit 121), 36.8, 18, 95% RA. HEENT atraumatic; neck supple; lungs clear; heart tachy/regular; abdomen soft and NT' extremities w/o edema; neuro Ox3, lucid, moves all 4s Results Labs Result diagrams: 12/19/21 20:10 12/19/21 20:10 Labs: Laboratory Results - last 24 hr 12/19/21 12/19/21 12/19/21 20:10 20:10 21:02 WBC 7.70 RBC 4.78 Hgb 15.8 Hct 45.8 MCV 95.8 H MCH 33.1 H MCHC 34.5 RDW 13.0 Plt Count 233 MPV 8.8 Immature Gran % 0.1 Neutrophils % 70.4 Lymphocytes % 22.2 Monocytes % 6.8 Eosinophils % 0.0 Basophils % 0.5 Nucleated RBC % 0 Absolute Neutrophils 5.42 Absolute Lymphocytes 1.71 Absolute Monocytes 0.52 Absolute Eosinophils 0.00 Absolute Basophils 0.04 Sodium 139 Potassium 3.5 Chloride 101 Carbon Dioxide 28.5 Anion Gap 9.5 BUN 9 Creatinine 0.9 Estimated GFR/1.73 m2 >= 60.00 Glucose 147 H Calcium 9.4 Total Bilirubin 0.2 AST 60 H ALT 165 H Alkaline Phosphatase 140 H Total Protein 8.6 H Albumin 4.5 Urine Opiates Screen Negative Urine Methadone Screen Positive A Ur Barbiturates Screen Negative Ur Tricyclics Screen Negative Ur Amphetamines Screen Negative U Benzodiazepines Scrn Positive A Urine Cocaine Screen Negative Ur THC Screen Negative Ethyl Alcohol 163.4 H COVID-19 Source 12/19/21 21:40 WBC RBC Hgb Hct MCV MCH MCHC RDW Plt Count MPV Immature Gran % Neutrophils % Lymphocytes % Monocytes % Eosinophils % Basophils % Nucleated RBC % Absolute Neutrophils Absolute Lymphocytes Absolute Monocytes Absolute Eosinophils Absolute Basophils Sodium Potassium Chloride Carbon Dioxide Anion Gap BUN Creatinine Estimated GFR/1.73 m2 Glucose Calcium Total Bilirubin AST ALT Alkaline Phosphatase Total Protein Albumin Urine Opiates Screen Urine Methadone Screen Ur Barbiturates Screen Ur Tricyclics Screen Ur Amphetamines Screen U Benzodiazepines Scrn Urine Cocaine Screen Ur THC Screen Ethyl Alcohol COVID-19 Source Nasal/Nares Last Vital Signs Temp 36.8 C 12/19/21 19:42 Pulse 154 H 12/19/21 19:42 Resp 18 12/19/21 19:42 BP 129/81 12/19/21 19:42 Pulse Ox 95 12/19/21 19:42 PAWSS Have you Been Recently Intoxicated or Drunk Within the Last 30 days?: Yes Have you Ever Experienced Previous Episodes of Alcohol Withdrawal?: Yes Have you ever Experienced Withdrawal Seizures?: Yes Have you ever Experienced Delirium Tremens(DT)s?: Yes Have you ever undergone Alcohol Rehabilitation Treatment (i.e, inpt ot outpatient treatment programs)?: Yes Have you ever Experienced Blackouts?: Yes Have you ever Combined Alcohol with other Downers within the last 90 days?: No Have you ever Combined Alcohol with any other Substance of Abuse during the last 90 days?: No Evidence of Increased Autonomic Activity (i.e. HR>120, tremor, sweating, agitation, nausea)?: Yes Result: 7
[2021-12-19 23:12] VITALS: BP 154/112; PULSE 108; RESP 16; TEMP 37; O2SAT 95
[2021-12-19] MEDS: cloNIDine 0.1 MG TAB 0.2 MG PO (23:43)
[2021-12-19 23:52] LABS: COVID-19 PCR Negative (Negative)
[2021-12-20] MEDS: LORazepam 2 MG/ML VIAL 1 MG IVP (00:19)
[2021-12-20] MEDS: MAGNESIUM SULFATE 8.12 MEQ, MULTIVITAMIN 10 ML, THIAMINE 100 MG, FOLIC ACID 1 MG in Nor... 168.867 MG IV (00:21)
[2021-12-20] MEDS: Normal Saline Flush 10 ML SYR ×3 (00:41→10:57)
[2021-12-20 00:59] VITALS: O2SAT 97
[2021-12-20] MEDS: LORazepam 1 MG TAB PO/SL ×3 (01:54→09:13)
[2021-12-20 02:00] VITALS: BP 154/105; PULSE 98; RESP 18; TEMP 36.6; O2SAT 96
[2021-12-20] MEDS: chlordiazePOXIDE 25 MG CAP 50 MG PO ×4 (02:49→20:18)
[2021-12-20 05:40] VITALS: BP 142/105; PULSE 91; RESP 18; TEMP 37.3; O2SAT 97
[2021-12-20] MEDS: Lactated Ringers 1,000 ML 100 ML IV (06:37)
[2021-12-20 06:44] LABS: ETHANOL BLOOD < 3.0 mg/dL (<10)
[2021-12-20] MEDS: Methadone Liquid 10 MG/ML 130 MG PO (07:46)
[2021-12-20] MEDS: Multivitamin TAB 1 TAB PO (09:13)
[2021-12-20] MEDS: Folic Acid 1 MG TAB PO (09:14)
[2021-12-20] MEDS: Thiamine 100 MG TAB PO (09:14)
[2021-12-20] MEDS: cloNIDine 0.1 MG TAB 0.2 MG PO ×3 (09:14→20:17)
[2021-12-20] MEDS: Nicotine 14 MG/24 HR PATCH TD (10:57)
[2021-12-20] MEDS: Nicotine 2 MG GUM CH (11:21)
--- NOTE | 2021-12-20 11:23 | PHACLINREV_ITS ---
Pharmacy Admission Review - Admission Clinical Review (Last Reviewed 12/19/21 @ 21:58 by Boris Vines MD) Alcohol withdrawal (Acute) Depression with suicidal ideation (Acute) No Known Allergies Allergy (Verified 12/19/21 19:56) Resuscitation Status Full Code Height 5 ft 8 in Weight 73.4 kg - Renal Dosing Renal Dosing: BUN 9 mg/dL (7-18) 12/19/21 20:10 Creatinine 0.9 mg/dL (0.70-1.30) 12/19/21 20:10 Medications needing adjustments: Reviewed (Crcl ~104 mL/min current meds okay) - Anticoagulation Anticoagulation: Hgb 15.8 g/dL (13.5-17.5) 12/19/21 20:10 Hct 45.8 % (40.0-50.0) 12/19/21 20:10 Plt Count 233 10^3/uL (130-400) 12/19/21 20:10 Creatinine 0.9 mg/dL (0.70-1.30) 12/19/21 20:10 DVT Prophylaxis: Intervened (Not mentioned in H&P, will ask provider about p ossible need.) Therapeutic Anticoagulation: N/A - Opiate Usage Evaluate Pain Scale/Pains Meds: Intervened Scheduled Bowel Reg ordered if on Opiates?: No (will mention to provider) - Relevant Labs Sodium 139 mmol/L (136-145) 12/19/21 20:10 Potassium 3.5 mmol/L (3.5-5.1) 12/19/21 20:10 Chloride 101 mmol/L (98-107) 12/19/21 20:10 Electrolytes, C-Reactive P, ESR: Reviewed - DM Control DM Control: Glucose 147 mg/dL (74-106) H 12/19/21 20:10 Insulin Dosing: N/A - Heart Failure/PR EF%, DANISH's, B-Blockers, Diuretics: N/A - BP Control BP Control: Blood Pressure 142/105 Blood Pressure 154/105 If elevated: Reviewed (BP has been elevated so far this admission) - Qtc Review If Elevated: Reviewed (EKG has not been read yet, pt is on methadone and fluoxetine) - IV to PO Switch IV Medications: Reviewed - Home Meds Home Med List reviewed: Reviewed Relevent Home Meds Not ordered & why?: lisdexamphetamine - Current meds Current Medication Order Review: Reviewed - Comments Comments/Follow Ups: Watch BP, CIWA, labs and for med changes (possible need of BM meds, possible DVT prophylaxis).
--- NOTE | 2021-12-20 11:29 | PGE_ITS ---
Date of Service Date of service: 12/20/21 Time of Service: 11:29 Assessment and Plan Assessment and plan (1) Alcohol withdrawal: Status: Acute Assessment and plan: continue scheduled librium (I increased his dose to 50 mg tid given his prior hx of alcoholic seizure), I have switched his iv MVS to oral thiamine, folic acid and MVS. continue CIWA scale monitoring and prn dosing w/ PO or SL lorazepam. When medically cleared then will have MH evaluate regarding his SI (2) Depression with suicidal ideation: Status: Acute Assessment and plan: his Prozac was not reordered on admission. I have since reordered this to start today. when medically stable from his alcohol withdrawal, I will have MH evaluate for inpatient psychiatric treatment. (3) Methadone dependence: Status: Acute Assessment and plan: his methadone was resumed this morning (4) Anxiety: Status: Acute Assessment and plan: resume his prozac and if further anxiety meds are needed beyond the benzodiazepines he is receiving for his alcohol withdrawal, then I will put him on Buspar Subjective Subjective Interval history since last seen: Patient brought into [facility] ER for acute worsening depression, and worsening alcoholism. He has been drinking 1/2 gallon vodka per day. He has had ideas of suicide including stepping in front of traffic. He still has thoughts of suicide. He has hx of narcotic abuse and is currently in methadone program but was denied his dose yesterday d/t refused to take breathalyzer test. He is now admitted for suicidal ideation and is going through alcohol withdrawal and withdrawal from his clonidine and his methadone. He presented w/ tremors and tachycardia and diaphoresis and nausea but no hallucinations. Exam Narrative Exam Narrative: Patient is alert/oriented, calm but has some tremors in his hands Lungs: clear Heart: RRR Abdomen: soft, nontender, normal bowel sounds Psychiatric: still w/ SI but cooperative, calm, no hallucination Arms: no erythema nor induration over his left forearm or upper arm; no open wounds Objective Last Vital Signs Temp 37.3 C 12/20/21 05:40 Pulse 91 H 12/20/21 05:40 Resp 18 12/20/21 05:40 BP 142/105 H 12/20/21 05:40 Pulse Ox 97 12/20/21 05:40 Laboratory Results - last 24 hr 12/19/21 12/19/21 12/19/21 20:10 20:10 21:02 WBC 7.70 RBC 4.78 Hgb 15.8 Hct 45.8 MCV 95.8 H MCH 33.1 H MCHC 34.5 RDW 13.0 Plt Count 233 MPV 8.8 Immature Gran % 0.1 Neutrophils % 70.4 Lymphocytes % 22.2 Monocytes % 6.8 Eosinophils % 0.0 Basophils % 0.5 Nucleated RBC % 0 Absolute Neutrophils 5.42 Absolute Lymphocytes 1.71 Absolute Monocytes 0.52 Absolute Eosinophils 0.00 Absolute Basophils 0.04 Sodium 139 Potassium 3.5 Chloride 101 Carbon Dioxide 28.5 Anion Gap 9.5 BUN 9 Creatinine 0.9 Estimated GFR/1.73 m2 >= 60.00 Glucose 147 H Calcium 9.4 Total Bilirubin 0.2 AST 60 H ALT 165 H Alkaline Phosphatase 140 H Total Protein 8.6 H Albumin 4.5 Urine Opiates Screen Negative Urine Methadone Screen Positive A Ur Barbiturates Screen Negative Ur Tricyclics Screen Negative Ur Amphetamines Screen Negative U Benzodiazepines Scrn Positive A Urine Cocaine Screen Negative Ur THC Screen Negative Ethyl Alcohol 163.4 H COVID-19 Source SARS-CoV-2 (PCR) 12/19/21 12/20/21 21:40 06:20 WBC RBC Hgb Hct MCV MCH MCHC RDW Plt Count MPV Immature Gran % Neutrophils % Lymphocytes % Monocytes % Eosinophils % Basophils % Nucleated RBC % Absolute Neutrophils Absolute Lymphocytes Absolute Monocytes Absolute Eosinophils Absolute Basophils Sodium Potassium Chloride Carbon Dioxide Anion Gap BUN Creatinine Estimated GFR/1.73 m2 Glucose Calcium Total Bilirubin AST ALT Alkaline Phosphatase Total Protein Albumin Urine Opiates Screen Urine Methadone Screen Ur Barbiturates Screen Ur Tricyclics Screen Ur Amphetamines Screen U Benzodiazepines Scrn Urine Cocaine Screen Ur THC Screen Ethyl Alcohol < 3.0 COVID-19 Source Nasal/Nares SARS-CoV-2 (PCR) Negative PAWSS Have you Been Recently Intoxicated or Drunk Within the Last 30 days?: Yes Have you Ever Experienced Previous Episodes of Alcohol Withdrawal?: Yes Have you ever Experienced Withdrawal Seizures?: Yes Have you ever Experienced Delirium Tremens(DT)s?: Yes Have you ever undergone Alcohol Rehabilitation Treatment (i.e, inpt ot outpatient treatment programs)?: Yes Have you ever Experienced Blackouts?: Yes Have you ever Combined Alcohol with other Downers within the last 90 days?: Yes Have you ever Combined Alcohol with any other Substance of Abuse during the last 90 days?: Yes Positive Blood Alcohol level on Presentation? [PCS.BAL]: Yes Evidence of Increased Autonomic Activity (i.e. HR>120, tremor, sweating, agitation, nausea)?: Yes Result: 10
--- NOTE | 2021-12-20 12:59 | PDOC.CMIN ---
- If Service Date Differs Date of service: 12/20/21 Time of Service: 12:59 Care Management Initial Assess REASON FOR HOSPITALIZATION:: SI, Alcohol withdrawal PAST MEDICAL HISTORY/PAST SURGICAL HISTORY:: Medical History . ADD (attention deficit disorder). Closed right ankle fracture (~09/2019). Erectile dysfunction (10/03/17). Gynecomastia, male (03/11/18). secondary to methadone. Hyperglycemia (09/05/17). Hyperprolactinemia (04/15/18). Hypertension. Hypogonadism, male (03/24/18). Pending appt with Dr. Charles at [facility] in [place]. Internal derangement of left knee. QT prolongation. Sprain of anterior cruciate ligament of left knee (~09/2019). Tobacco abuse (11/19/17). 1/2 ppd PREVIOUS FUNCTIONAL STATUS/SOCIAL/FAMILY SUPPORTS:: Dangelo lives in [facility] with his father. He is from his . They have one child named Elizabeth, who per report, is 14 years old. He is independent at baseline. CURRENT FUNCTIONAL STATUS:: Dangelo continues to be closely monitored and treated for ETOH withdrawal, CM continues to follow. Has patient been provided with info about the portal/API?: Yes Did the patient sign up for the portal?: Yes CODE STATUS:: Full Code INSURANCE COVERAGE / FINANCIAL ISSUES:: [employer]Z CURRENT HOME/COMMUNITY SERVICES/EQUIPMENT:: None, currently. PRIMARY CARE PHYSICIAN:: Sophia Kelsey POTENTIAL DISCHARGE NEEDS:: Crisis screening, ETOH withdrawal protocol, assistant softball coach if appropriate. PATIENT/FAMILY EDUCATION NEEDS:: Review of discharge instructions, discuss Ask Me Three. ANTICIPATED BARRIERS TO DISCHARGE:: Dangelo will need to be screened by [facility] prior to discharge. TRANSPORTATION:: Via private vehicle by family. PLAN:: Dangelo continues and treated for ETOH withdrawal. Methadone maintenance dose which is managed by [facility] in the community is also being administered. Once he is medically cleared he will be screened by [facility]. His discharge plan will be determined by that screening. He will either pursue hospitalization vs home with support from [facility] outpatient. Transportation to be determined by discharge. He will follow up with his PCP and discharge plan of care. If cleared by , CM will page assistant softball coach to connect with Dangelo.
[2021-12-20] MEDS: FLUoxetine 20 MG CAP 40 MG PO (13:56)
[2021-12-20 15:22] VITALS: BP 165/103; PULSE 88; RESP 18; TEMP 36; O2SAT 98
--- NOTE | 2021-12-20 17:46 | CMSP_ITS ---
- If Service Date Differs Date of service: 12/20/21 Time of Service: 17:47 Care Management Safety Plan Status: Interim - Reason for Wait Reason for Wait: Medical Clearance CM will assess patient after patient has been medically cleared and assessed by screener. If screener deems patient meets criteria for psychiatric stabilization CM will facilitate interdepartmental huddle with [facility] screener for safety planning considerations and meet with patient to review [facility] policy and safety plan, establish individual wishes for treatment and maintain patient rights. In the interim; please note safety plan below to guide patient care while awaiting further assessment in the ED. SAFETY PLAN: 1. Will remain on suicide precautions and in paper clothes. 2. Will remain in room under direct supervision of one-on-one staff at all times provided by JAYDEN, SLEEVE SEPARATOR circuit board inspector. 3. May have paper cups, plates, finger foods as well as a cardboard spoon with which to eat meals. 4. Follow [facility] Management of the Admitted Behavioral Health Patient policy. 5. Personal care: Comfort bath system only at this time. 6. Bathroom privileges: Available in room without limitation on Med/Surg. 6. No personal belongings at this time; per RN discretion. 7. No visitors at this time. 8. Phone contact limited to legal contact at this time. 9. Activities: Music tablet per RN discretion. Television and remote available at RN discretion. 10. Due to VOLUNTARY status, if patient wishes to leave [facility], staff will contact [facility] Crisis Screener ([phone]) and On-Call Expeller Worker ([phone]) as soon as possible. In the event of elopement, notify [facility] Police ([phone]). If deemed appropriate for inpatient psychiatric care, safety plan will be established with patient, and care team, to adhere to patient goals, identify restrictions based on behavioral status, address nutrition, and determine allowed personal belongings, tools for hygiene and personal care. As well plan will determine level of activity including ambulation, level of supervision, visitors, and determine privileges based on level of acuity, behaviors and level of engagement by patient.
[2021-12-20 17:57] VITALS: BP 129/87; PULSE 61; RESP 17; TEMP 37; O2SAT 98
[2021-12-20] MEDS: Docusate Sodium 100 MG CAP PO (20:17)
[2021-12-21] MEDS: LORazepam 1 MG TAB PO/SL ×3 (02:52→19:41)
[2021-12-21 05:42] VITALS: BP 125/82; PULSE 58; RESP 16; TEMP 36.6; O2SAT 97
[2021-12-21] MEDS: Methadone Liquid 10 MG/ML 130 MG PO (08:19)
[2021-12-21] MEDS: FLUoxetine 20 MG CAP 40 MG PO (08:35)
[2021-12-21] MEDS: Multivitamin TAB 1 TAB PO (08:35)
[2021-12-21] MEDS: chlordiazePOXIDE 25 MG CAP 50 MG PO ×4 (08:36→19:41)
[2021-12-21] MEDS: cloNIDine 0.1 MG TAB 0.2 MG PO ×3 (08:36→19:41)
[2021-12-21] MEDS: Thiamine 100 MG TAB PO (08:37)
[2021-12-21] MEDS: Folic Acid 1 MG TAB PO (08:37)
[2021-12-21] MEDS: Nicotine 14 MG/24 HR PATCH TD (08:38)
--- NOTE | 2021-12-21 09:20 | PDOC.CMPRO ---
- If Service Date Differs Date of service: 12/21/21 Time of Service: 09:20 Care Management Progress Note S/O:Dangelo was sitting up in bed watching TV when CM met with him. He was pleasant and agreeable to conversation. Dangelo stated that he remains depressed but did not feel suicidal at this time. He stated that he has had issues with depression for a long time. When asked, he informed CM that he has only been hospitalized for this once and that was at [facility] in the dual diagnosis program. Dangelo has issues with alcohol and is currently receiving methadone through the program at [facility]. He remains acute as he is still scoring on the CIWA scale but will be screened by [facility] crisis screener when medically cleared. A: Dangelo is a 41 year old man admitted on 12/19/21 with suicidak ideation and alcohol withdrawal P:Dangelo continues to be treated for ETOH withdrawal. Methadone maintenance dose which is managed by [facility] in the community is also being administered. Once he is medically cleared he will be screened by [facility]. His discharge plan will be determined by that screening. He will either pursue hospitalization vs home with support from [facility] outpatient. Transportation to be determined by discharge. He will follow up with his PCP and discharge plan of care. If cleared by , will page assistant women's soccer coach to connect with Dangelo.
--- NOTE | 2021-12-21 09:37 | W.PM.PROGNOT ---
Date of Service Date of service: 12/21/21 Time of Service: 09:38 Assessment and Plan Assessment and plan (1) Alcohol withdrawal: Status: Acute Assessment and plan: Continue both prophylactic chlordiazepoxide as well as symptomatic triggered use of lorazepam. Continue multivitamin and folic acid and thiamine. I have increased the frequency of his chlordiazepoxide 50 mg 4 times daily. With orders to hold for sedation. (2) Depression with suicidal ideation: Status: Acute Assessment and plan: Patient's depression has improved somewhat since restarting his fluoxetine. I will continue his current dose of 40 mg daily. Monitor for signs and symptoms of depression and suicidal ideation. (3) Anxiety: Status: Acute Assessment and plan: As above (4) Methadone dependence: Status: Acute Assessment and plan: Patient has been resumed on his outpatient dose of methadone and clonidine has been restarted with a dose adjustment. Subjective Subjective Interval history since last seen: Overall patient feels a little better today. He does not feel as intense today. No visual or auditory hallucinations. He does have some light sensitivity and a little bit of a headache. We will treat his headache with ketorolac. As far as alcohol withdrawal he did have a little elevation CIWA score up to 11 this morning which she had some nausea and some increased tremors and some diaphoresis. He was medicated and feels better now. Patient still expresses feelings of depression but at present time does not want to kill himself. Exam Narrative Exam Narrative: Young white male lying in bed with the lights off in the TV on. CPS shows in the room with him. Patient is not asleep he is alert oriented person place and time. Lungs are clear Heart regular rate Abdomen soft nontender Extremities slight tremor in his hands when he fully extends his arms. Skin is warm and dry no diaphoresis. Normal handgrip strength normal arm strength. No ataxia Objective Last Vital Signs Temp 36.6 C 12/21/21 05:42 Pulse 58 L 12/21/21 05:42 Resp 16 12/21/21 05:42 BP 125/82 12/21/21 05:42 Pulse Ox 97 12/21/21 05:42 PAWSS Have you Been Recently Intoxicated or Drunk Within the Last 30 days?: Yes Have you Ever Experienced Previous Episodes of Alcohol Withdrawal?: Yes Have you ever Experienced Withdrawal Seizures?: Yes Have you ever Experienced Delirium Tremens(DT)s?: Yes Have you ever undergone Alcohol Rehabilitation Treatment (i.e, inpt ot outpatient treatment programs)?: Yes Have you ever Experienced Blackouts?: Yes Have you ever Combined Alcohol with other Downers within the last 90 days?: Yes Have you ever Combined Alcohol with any other Substance of Abuse during the last 90 days?: Yes Positive Blood Alcohol level on Presentation? [PCS.BAL]: Yes Evidence of Increased Autonomic Activity (i.e. HR>120, tremor, sweating, agitation, nausea)?: Yes Result: 10
--- NOTE | 2021-12-21 10:27 | PDOC.CMSAFE ---
- If Service Date Differs Date of service: 12/21/21 Time of Service: 10:28 Care Management Safety Plan Status: Interim - Reason for Wait Reason for Wait: Medical Clearance CM will assess patient after patient has been medically cleared and assessed by screener. If screener deems patient meets criteria for psychiatric stabilization CM will facilitate interdepartmental huddle with [facility] screener for safety planning considerations and meet with patient to review [facility] policy and safety plan, establish individual wishes for treatment and maintain patient rights. In the interim; please note safety plan below to guide patient care while awaiting further assessment in the ED. SAFETY PLAN: 1. Will remain on suicide precautions and in paper clothes. 2. Will remain in room under direct supervision of one-on-one staff at all times provided by JAYDEN, CATALOG LIBRARY ASSISTANT oracle database analyst. 3. May have paper cups, plates, finger foods as well as a cardboard spoon with which to eat meals. 4. Follow [facility] Management of the Admitted Behavioral Health Patient policy. 5. Personal care: Comfort bath system only at this time. 6. Bathroom privileges: Available in room without limitation on Med/Surg. 6. No personal belongings at this time; per RN discretion. 7. No visitors at this time. 8. Phone contact limited to legal contact at this time. 9. Activities: Music tablet per RN discretion. Television and remote available at RN discretion. 10. Due to VOLUNTARY status, if patient wishes to leave [facility], staff will contact [facility] Crisis Screener ([phone]) and On-Call [employer] ([phone]) as soon as possible. In the event of elopement, notify [facility] Police ([phone]). If deemed appropriate for inpatient psychiatric care, safety plan will be established with patient, and care team, to adhere to patient goals, identify restrictions based on behavioral status, address nutrition, and determine allowed personal belongings, tools for hygiene and personal care. As well plan will determine level of activity including ambulation, level of supervision, visitors, and determine privileges based on level of acuity, behaviors and level of engagement by patient.
[2021-12-21 15:20] VITALS: BP 137/86; PULSE 52; RESP 16; TEMP 36.1; O2SAT 97
[2021-12-21] MEDS: Docusate Sodium 100 MG CAP PO (19:42)
[2021-12-22 00:58] VITALS: BP 129/80; PULSE 64; RESP 17; TEMP 35.4; O2SAT 96
[2021-12-22] MEDS: LORazepam 1 MG TAB PO/SL (01:04)
[2021-12-22] MEDS: Methadone Liquid 10 MG/ML 130 MG PO (06:33)
[2021-12-22 06:44] VITALS: BP 136/99; PULSE 61; RESP 17; TEMP 36.7; O2SAT 97
[2021-12-22 07:58] LABS: HCT 46.5 % (40.0-50.0); HGB 15.5 g/dL (13.5-17.5); MCH 32.3 pg (27.0-33.0); MCHC 33.3 % (32.0-36.0); MCV 96.9 fL (80-95); MPV 9.4 fL (8.0-11.0); Platelet Count 149 10^3/uL (130-400); RDW-SD 47.4 fL; WBC 6.25 10^3/uL (4.4-10.8)
[2021-12-22] MEDS: Nicotine 14 MG/24 HR PATCH TD (08:27)
[2021-12-22] MEDS: FLUoxetine 20 MG CAP 40 MG PO (08:28)
[2021-12-22] MEDS: Folic Acid 1 MG TAB PO (08:28)
[2021-12-22] MEDS: chlordiazePOXIDE 25 MG CAP 50 MG PO ×4 (08:28→20:06)
[2021-12-22] MEDS: Thiamine 100 MG TAB PO (08:29)
[2021-12-22] MEDS: Multivitamin TAB 1 TAB PO (08:29)
[2021-12-22] MEDS: cloNIDine 0.1 MG TAB 0.2 MG PO ×3 (08:29→20:05)
[2021-12-22] MEDS: Docusate Sodium 100 MG CAP PO ×2 (08:30→20:06)
[2021-12-22] MEDS: Nicotine 2 MG GUM CH ×2 (10:38→14:47)
--- NOTE | 2021-12-22 10:54 | CMSP_ITS ---
- If Service Date Differs Date of service: 12/22/21 Time of Service: 10:54 Care Management Safety Plan Status: Voluntary - Reason for Wait Reason for Wait: Medical Clearance CM will assess patient after patient has been medically cleared and assessed by screener. If screener deems patient meets criteria for psychiatric stabilization CM will facilitate interdepartmental huddle with [facility] screener for safety planning considerations and meet with patient to review [facility] policy and safety plan, establish individual wishes for treatment and maintain patient rights. In the interim; please note safety plan below to guide patient care while awaiting further assessment in the ED. SAFETY PLAN: 1. Will remain on suicide precautions and in paper clothes. 2. Will remain in room under direct supervision of one-on-one staff at all times provided by JAYDEN, TOY PACKER director corporate compliance. 3. May have paper cups, plates, finger foods as well as a cardboard spoon with which to eat meals. 4. Follow [facility] Management of the Admitted Behavioral Health Patient policy. 5. Personal care: May shower with supervision at nursing discretion. 6. Bathroom privileges: Available in room without limitation on Med/Surg. 6. No personal belongings at this time; per nursing discretion. 7. No visitors at this time. 8. Phone contact limited to legal contact at this time. 9. Activities: Music tablet per nursing discretion. Television and remote available at nursing discretion. 10. Due to VOLUNTARY status, if patient wishes to leave [facility], staff will contact [facility] Crisis Screener ([phone]) and On-Call [employer] ([phone]) as soon as possible. In the event of elopement, notify [facility] Police ([phone]). If deemed appropriate for inpatient psychiatric care, safety plan will be estab lished with patient, and care team, to adhere to patient goals, identify restrictions based on behavioral status, address nutrition, and determine allowed personal belongings, tools for hygiene and personal care. As well plan will determine level of activity including ambulation, level of supervision, visitors, and determine privileges based on level of acuity, behaviors and level of engagement by patient.
--- NOTE | 2021-12-22 11:41 | W.PM.PROGNOT ---
Date of Service Date of service: 12/22/21 Time of Service: 11:42 Assessment and Plan Assessment and plan (1) Alcohol withdrawal: Status: Acute Assessment and plan: Continue both prophylactic chlordiazepoxide as well as symptomatic triggered use of lorazepam. CIWA scores of 10 x 2 late last PM and early this AM, scores of 2-3 since then. Continue multivitamin and folic acid and thiamine. He states that now he must pass a breathylizer test to get his dose of methadone, this will act as a deterrent to alcohol use; along with close contact with his mental health counsellor. (2) Depression with suicidal ideation: Status: Acute Assessment and plan: Cont Fluioxteine 40 mg daily. Monitor for signs and symptoms of depression and suicidal ideation. (3) Anxiety: Status: Acute Assessment and plan: As above (4) Methadone dependence: Status: Acute Assessment and plan: Patient has been resumed on his outpatient dose of methadone and clonidine has been restarted with a dose adjustment. Subjective Subjective Patient reports: no new complaints, feels better, still having pain (Headache.), tolerating a regular diet (Intake is less than his typical. ) and nausea; denies vomiting or afebrile Exam Const General: cooperative and no acute distress Nutritional Appearance: average body habitus Orientation: alert and oriented x3 HENMT Head: atraumatic Ears: hearing grossly normal bilaterally Eyes General: appearance normal, both eyes and all related structures Sclera: sclerae normal Resp Effort & Inspection: normal respiratory effort Auscultation: clear to auscultation bilaterally Cardio Rate: regular rate Rhythm: regular rhythm Heart Sounds: S1 normal and S2 normal GI Palpation: soft, no guarding and nontender Neuro General: no focal motor deficits Cognition: normal cognition Extrem General: no pedal edema and no calf tenderness Psych Appearance: grossly normal Mental Status: mental status grossly normal Affect: normal affect Attitude: cooperative Objective Last Vital Signs Temp 36.7 C 12/22/21 06:44 Pulse 61 12/22/21 06:44 Resp 17 12/22/21 06:44 BP 136/99 H 12/22/21 06:44 Pulse Ox 97 12/22/21 06:44 Laboratory Results - last 24 hr 12/22/21 07:25 WBC 6.25 RBC 4.80 Hgb 15.5 Hct 46.5 MCV 96.9 H MCH 32.3 MCHC 33.3 RDW 13.0 Plt Count 149 MPV 9.4 PAWSS Have you Been Recently Intoxicated or Drunk Within the Last 30 days?: Yes Have you Ever Experienced Previous Episodes of Alcohol Withdrawal?: Yes Have you ever Experienced Withdrawal Seizures?: Yes Have you ever Experienced Delirium Tremens(DT)s?: Yes Have you ever undergone Alcohol Rehabilitation Treatment (i.e, inpt ot outpatient treatment programs)?: Yes Have you ever Experienced Blackouts?: Yes Have you ever Combined Alcohol with other Downers within the last 90 days?: Yes Have you ever Combined Alcohol with any other Substance of Abuse during the last 90 days?: Yes Positive Blood Alcohol level on Presentation? [PCS.BAL]: Yes Evidence of Increased Autonomic Activity (i.e. HR>120, tremor, sweating, agitation, nausea)?: Yes Result: 10
[2021-12-22 11:51] VITALS: BP 141/98; PULSE 62; RESP 17; TEMP 36.3; O2SAT 96
--- NOTE | 2021-12-22 15:14 | PDOC.CMPRO ---
- If Service Date Differs Date of service: 12/22/21 Time of Service: 15:14 Care Management Progress Note S/O:Dangelo was sitting up in bed watching TV when CM came to see him. [facility] ES screener Lilly was present via Zoom to do a re-assessment as Dangelo was medically cleared today. Dangelo again denied SI to the screener, the provider and his nurse today. He has a forward thinking plan to continue therapy and retuen to work. He stated that he feels much better. The plan will be for him to discharge home tomorrow after his dose of methadone is administered. CM will provide a last dose letter for him to take to [facility]. Dangelo was cleared by the [facility] screener and the order for a CPSO as well as the safety plan were discontinued. A: Dangelo is a 41 year old man admitted on 12/19/21 with suicidak ideation and alcohol withdrawal P:Dangelo has been cleared by the [facility] crisis screener and the CPSO and Safety Plan were discontinued. He will be discharged home tomorrow after his methadone dose is administered and will be given a last dose letter by .
[2021-12-22 19:40] VITALS: BP 107/69; PULSE 79; RESP 18; TEMP 36.5; O2SAT 98
[2021-12-23 03:28] VITALS: BP 113/67; PULSE 50; RESP 17; TEMP 36.7; O2SAT 98
[2021-12-23] MEDS: Methadone Liquid 10 MG/ML 130 MG PO (05:25)
[2021-12-23 07:50] VITALS: BP 131/86; PULSE 61; RESP 18; TEMP 36.6; O2SAT 98
[2021-12-23 08:07] LABS: ALT 216 U/L (16-63); AST 83 U/L (15-37); Albumin 3.6 g/dL (3.4-5.0); Alkaline Phosphatase 116 U/L (46-116); BUN 23 mg/dL (7-18); Bilirubin, Total 0.3 mg/dL (0.2-1.0); CREATININE 0.9 mg/dL (0.70-1.30); Calcium 9.4 mg/dL (8.5-10.1); Chloride 101 mmol/L (98-107); Glucose 101 mg/dL (74-106); Potassium 4.1 mmol/L (3.5-5.1); Sodium 136 mmol/L (136-145); Total Protein 6.9 g/dL (6.4-8.2)
[2021-12-23] MEDS: chlordiazePOXIDE 25 MG CAP 50 MG PO (08:09)
[2021-12-23] MEDS: cloNIDine 0.1 MG TAB 0.2 MG PO (08:10)
[2021-12-23] MEDS: Thiamine 100 MG TAB PO (08:10)
[2021-12-23] MEDS: Enoxaparin 40 MG/0.4 ML SYR SC (08:10)
[2021-12-23] MEDS: FLUoxetine 20 MG CAP 40 MG PO (08:10)
[2021-12-23] MEDS: Folic Acid 1 MG TAB PO (08:10)
[2021-12-23] MEDS: Docusate Sodium 100 MG CAP PO (08:10)
--- NOTE | 2021-12-23 08:40 | DSE_ITS ---
Date of service: 12/23/21 Time of Service: 08:41 DS: Diagnosis Discharge Diagnosis (1) Alcohol withdrawal: Status: Acute (2) Depression with suicidal ideation: Status: Acute (3) Anxiety: Status: Acute (4) Methadone dependence: Status: Acute Discharge Plan Disposition Patient Disposition: HOME Condition: Good Discharge Details Reason For Visit: suicidal Ideation,Alcohol Withdrawal Admit Date/Time: 12/21/21 22:04 Admit Provider: Boris Vines Attending Provider: Boris Vines Primary Care Provider: Sophia Kelsey Hospital Course Hospital Course: This is a 41 male with h/o substance abuse, alcohol abuse, on Methadone, h/o ADHD, anxiety and depression. States he has been feeling more depressed recently due to an accumulation of events (lost job, recent COVID dx with isolation). Drinking more. On day of admission he was refused his usual methadone due to alcohol level (breathylizer positive). He presented with thoughts of self harm (run into traffic). In ER eval of note for initial tachycardia and tremulous, with EtOH level 163. Given IVF, 2 mg Ativan IV and 50 Librium. Labs otherwise of note for AST 60, ALT 165, T Bili 0.2; UDS positive Methadone, benzos. EKG sinus tach. Patient states he feels safe in the hospital. Does report h/o single w/d seizure. Is usually on Clonidine but has not taken for several days. He was placed on CIWA protocol, scheduled librium. His withdrawal was fairly benign. He was medically cleared for evaluation by [facility]. They are scheduling an appt for follow up. He will continue to meet with his [facility] counsellor routinely. Schedule a PCP follow up in 2 weeks. Home Meds and New Rx's Prescriptions: New nicotine 14 mg/24 hr Patch 24 Hour 14 mg transdermal DAILY Qty: 0 0RF chlordiazepoxide HCl 25 mg Capsule See Rx Instructions .ROUTE .COMPLEX Qty: 39 0RF Rx Instructions: 2 tabs TID for 3 days, then 2 tabs BID for 3 days, then 1 tab BID for 3 days, then 1 tab daily for 3 days. Continued multivitamin Tablet 1 tab PO DAILY 0RF fluoxetine 40 mg capsule 40 mg PO DAILY Qty: 30 0RF Label Comments: Pt takes this medication daily in the morning. lisdexamfetamine 60 mg capsule 60 mg PO QAM MDD 60 Qty: 28 0RF Label Comments: Sometimes forget to take the medication. Last taken two days ago according to pt. methadone 5 MG/5 ML solution 130 mg PO DAILY 0RF Label Comments: Patient states he got his dose yesterday. clonidine HCl 0.2 mg tablet 0.2 mg PO BID Qty: 60 5RF Label Comments: Did not take the medication today. folic acid 1 mg Tablet 1 mg PO QAM Qty: 0 0RF thiamine mononitrate (vit B1) [Vitamin B-1 (mononitrate)] 100 mg Tablet 100 mg PO QAM Qty: 0 0RF Label Comments: Have not taken it for a long time. Discharge Instructions Activity:: Activity as Tolerated Equipment/Supplies:: No Equipment Needed Diet:: As Tolerated DS: Summary Time Spent with Patient providing and/or coordinating discharge services: Greater than 30 minutes Status at Discharge Functional status at discharge: independent ambulation Overall status at discharge: patient is back to baseline Mental Status: mental status grossly normal Speech and Movement: speech and movement normal Mood: congruent mood Affect: normal affect Exam Const General: cooperative and no acute distress Nutritional Appearance: average body habitus Orientation: alert and oriented x3 HENMT Head: atraumatic Ears: hearing grossly normal bilaterally Eyes General: appearance normal, both eyes and all related structures Sclera: sclerae normal Resp Effort & Inspection: normal respiratory effort Auscultation: clear to auscultation bilaterally Cardio Rate: regular rate Rhythm: regular rhythm Heart Sounds: S1 normal and S2 normal GI Palpation: soft, no guarding and nontender Neuro General: no focal motor deficits Cognition: normal cognition Extrem General: no pedal edema and no calf tenderness Psych Appearance: grossly normal Mental Status: mental status grossly normal Speech and Movement: speech and movement normal Mood: congruent mood Affect: normal affect Attitude: cooperative DS: Data Vitals/I&O Vitals and I&O: Vital Signs Temperature 36.6 C 12/23/21 07:50 Temperature Source Tympanic 12/23/21 07:50 Pulse 61 12/23/21 07:50 Pulse Rhythm Regular 12/23/21 01:39 Respiratory Rate 18 12/23/21 07:50 Respiratory Effort Non-Labored 12/23/21 01:39 Respiratory Depth Normal 12/23/21 01:39 Respiratory Pattern Normal 12/23/21 01:39 Blood Pressure 131/86 12/23/21 07:50 Blood Pressure Position Sitting 12/19/21 19:42 Pulse Oximetry 98 12/23/21 07:50 Oxygen Delivery Method Room Air 12/23/21 07:50 Oxygen Flow Rate 0 12/23/21 07:50 Pain Level 1 12/23/21 07:50 Comment 12/22/21 23:35 Intake & Output 12/22/21 12/22/21 12/23/21 11:59 23:59 11:59 Intake Total 840 / 1440 600 / 1440 Balance 840 / 1440 600 / 1440 Intake: Oral 840 / 1440 600 / 1440 Other: Urine Appearance Clear Clear Urine Odor None Comment pT voids independent in toilet unmeasured void Voiding Methods Toilet Data Completed and Pending Labs on day of discharge: Labs from last 24 hours 12/23/21 07:30 Sodium 136 Potassium 4.1 Chloride 101 Carbon Dioxide 29.0 Anion Gap 6.0 BUN 23 H Creatinine 0.9 Estimated GFR/1.73 m2 >= 60.00 Glucose 101 Calcium 9.4 Total Bilirubin 0.3 AST 83 H ALT 216 H Alkaline Phosphatase 116 Total Protein 6.9 Albumin 3.6 PFSH All Active Problems Alcohol withdrawal (Acute) Depression with suicidal ideation (Acute) Anxiety (Acute 09/05/17) Methadone dependence (Acute 04/01/18) [facility] in [facility] Hx intranasal and oral use of opioids. Meets with therapist twice monthly; has had take-home in the past. Alcohol abuse (Chronic) Inpatient program 01/2021, independent living program and AA with sponsor. Longest sobriety was 3 years; worse with Covid. Depression (Chronic) Alcohol abuse with withdrawal (Acute) Family history of diabetes mellitus (DM) (Acute 09/05/17) Medical History ADD (attention deficit disorder) Closed right ankle fracture (~09/2019) COVID Erectile dysfunction (10/03/17) Gynecomastia, male (03/11/18) secondary to methadone Hyperglycemia (09/05/17) Hyperprolactinemia (04/15/18) Hypertension Hypogonadism, male (03/24/18) Pending appt with Dr. Charles at [facility] in [place] Internal derangement of left knee QT prolongation Sprain of anterior cruciate ligament of left knee (~09/2019) Tobacco abuse (11/19/17) 1/2 ppd Family History Mother Diabetes Cancer thyroid cancer Father Diabetes Essential hypertension Paternal Grandfather No problems noted. Maternal Grandfather Stroke Paternal Uncle Cancer stomach cancer Social History Smoking/Tobacco Use Status: Current every day Tobacco Type: cigarettes Smoking risk assessment performed?: Yes Alcohol Intake: current Alcohol Intake frequency: 3 or more drinks per day Alcohol type: beer and hard liquor Drug use: Occasionally Substance use type: does not use Details: normally drinks 1/2 gallon per 24 hours Household members: other Details: 3 other men in recovery. 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
--- NOTE | 2021-12-23 08:48 | CMDISCH_ITS ---
- If Service Date Differs Date of service: 12/23/21 Time of Service: 08:48 Care Management Discharge Reason for Hospitalization: SI, Alcohol withdrawal Discharge Plan: Dangelo was cleared by the [facility] crisis screener and a safety plan was formulated. He will be discharged home with no new services and will follow up with his PCP and community supports. Dangelo will transport with a friend. Patient/Family Education Needs: Review of discharge instructions, follow up and safety plans, discuss Ask Me Three. - MH Services (Omit if N/A) Current MH Services: [facility] - Disposition Disposition: Community Discharge Transport via of: Other
[2021-12-23] MEDS: Multivitamin TAB 1 TAB PO (08:53)
[2021-12-23] MEDS: Nicotine 14 MG/24 HR PATCH TD (08:53)
== END 2021-12-23 09:45 | disposition home or self-care (01) | DRG 897 ==
LOC: ER 21:35 → MS 23:06
PROVIDERS: Family Medicine; Internal Medicine; Admitting Provider General Practice; Emergency Provider Emergency Medicine; PCP Family Medicine; Visit Provider General Practice
DX: F10.239 Alcohol dependence with withdrawal, unspecified (principal); R45.851 Suicidal ideations; F11.20 Opioid dependence, uncomplicated; F32.A Depression, unspecified; F41.9 Anxiety disorder, unspecified; I10 Essential (primary) hypertension; F17.210 Nicotine dependence, cigarettes, uncomplicated; F90.9 Attention-deficit hyperactivity disorder, unspecified type; Z86.16 Personal history of COVID-19
CPT/HCPCS: 36415; 80053; 80307; 85027; 87635; 93005; 96361; 96374; 99285; J1650; 80320; 85025; 93010; 99219; 99225; 99231; 99232; 99239; G0378; J2060

== ENCOUNTER 2022-01-25 15:05 | Inpatient (IN) | payer MEDICAID, SELFPAY ==
[2022-01-25] VITALS (63 sets, daily range): BP systolic 107–147; BP diastolic 66–113; PULSE 81–121; RESP 13–30; TEMP 36.7–37.3; O2SAT 94–98
--- NOTE | 2022-01-25 15:15 | RT.EKG_ITS ---
APPROVED REPORT Exam: Resting ECG Reason for Exam: TACHYCARDIA Patient Location: E HR:104 bpm ECG Measurements Heart Rate 104 AXIS MN 122 P 76 QRSd 99 QRS 65 QT 373 T -63 QTc 490 Conclusion Sinus tachycardia...rate> 99 Probable left atrial enlargement...P >50mS, <-0.10mV V1 Borderline ST depression, lateral leads...ST <-0.07mV, I aVL V5 V6 Abnormal T, consider ischemia, diffuse leads...T <-0.20mV, ant/lat/inf
[2022-01-25 16:02] LABS: Abs Immature Grans 0.02 10^3/uL (0.0-0.06); Absolute Basophil Count 0.03 10^3/uL (0.0-0.2); Absolute Eosinophil Count 0.05 10^3/uL (0.0-0.7); Absolute Lymphocyte Count 2.43 10^3/uL (1.2-3.4); Absolute Monocyte Count 1.13 10^3/uL (0.1-0.8); Absolute Neutrophil Count 6.87 10^3/uL (1.2-6.7); Basophils % 0.3; Eosinophils % 0.5; HCT 43.2 % (40.0-50.0); HGB 15.2 g/dL (13.5-17.5); Immature Grans % 0.2; Lymphocytes % 23.1; MCH 33.8 pg (27.0-33.0); MCHC 35.2 % (32.0-36.0); MPV 9.5 fL (8.0-11.0); Monocytes % 10.7; Neutrophils % 65.2; Nucleated RBC 0 %; Platelet Count 216 10^3/uL (130-400); RDW 12.8 % (11.8-14.1); RDW-SD 45.8 fL; WBC 10.53 10^3/uL (4.4-10.8)
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
[2022-01-25] MEDS: Thiamine 100 MG TAB PO (16:21)
[2022-01-25] MEDS: Multivitamin TAB 1 TAB PO (16:21)
[2022-01-25] MEDS: Folic Acid 1 MG TAB PO (16:21)
[2022-01-25] MEDS: Normal Saline 1,000 ML 1000 ML IV ×2 (16:25→17:43)
[2022-01-25 16:32] LABS: Source Nasal/Nares
[2022-01-25 16:47] LABS: ALT 87 U/L (16-63); AST 58 U/L (15-37); Albumin 4.7 g/dL (3.4-5.0); Alkaline Phosphatase 125 U/L (46-116); Anion Gap 17.1 mmol/L (3-11); BUN 26 mg/dL (7-18); Bilirubin, Total 0.9 mg/dL (0.2-1.0); CO2 23.9 mmol/L (21.0-32.0); CREATININE 0.8 mg/dL (0.70-1.30); Calcium 9.9 mg/dL (8.5-10.1); Chloride 97 mmol/L (98-107); ETHANOL BLOOD 148.6 mg/dL (<10); Glucose 114 mg/dL (74-106); Magnesium 2.4 mg/dL (1.8-2.4); Sodium 138 mmol/L (136-145); Total Protein 8.7 g/dL (6.4-8.2)
[2022-01-25 16:47] LABS: Bilirubin Negative (Negative); Blood Negative (Negative); Clarity Clear (Clear); Glucose Negative (Negative); Ketones Negative (Negative); Leukocyte Esterase Negative (Negative); Nitrite Negative (Negative); Urobilinogen 0.2 EU/dL (Up TO 0.2)
[2022-01-25 16:58] LABS: Troponin I 76 ng/L (<or=60)
[2022-01-25 17:12] LABS: COVID-19 PCR POSITIVE (Negative)
[2022-01-25] MEDS: chlordiazePOXIDE 25 MG CAP 50 MG PO ×2 (17:18→23:30)
[2022-01-25] MEDS: LORazepam 2 MG/ML VIAL IVP ×2 (17:19→21:37)
[2022-01-25 17:25] LABS: *AMPHETAMINES SCREEN URINE Positive (Negative); *BARBITURATES SCREEN URINE Negative (Negative); *BENZODIAZEPINES SCREEN URINE Negative (Negative); Cannabinoids THC Negative (Negative); Cocaine Screen,Urine Negative (Negative); METHADONE URINE SCREEN Positive (Negative); OPIATES URINE SCREEN Negative (Negative)
[2022-01-25 17:28] LABS: Tricyclic Antidepressants Negative (Negative)
[2022-01-25] MEDS: Potassium Chloride 20 MEQ TABCR 40 MEQ PO (17:42)
[2022-01-25] MEDS: POTASSIUM CHLORIDE 20 MEQ/100 ML BAG 50 MEQ IVPB (17:43)
--- NOTE | 2022-01-25 18:38 | W.PM.HP.N ---
Date of service: 01/25/22 Time of Service: 18:38 Assessment and Plan Assessment and plan (1) Alcohol abuse with withdrawal: Status: Acute Assessment and plan: librium 50 mg qid, ativan per CIWA protocol, thiamine, folic acid, MVS; he has expressed desire to enter into an inpatient rehabilitation program upon completion of treatment for withdrawal. 60 minute CC time spent in history, exam, discussion w/ ED personnel, review of labs/EKG and completion of orders and signout to electrician underground. (2) Depression with suicidal ideation: Status: Acute Assessment and plan: will have mental health evaluation upon medical stabilization from his alcohol withdrawal and after evaluation for his elevated troponin (3) Elevated troponin: Status: Acute Assessment and plan: probably demand ischemia. Will cycle his troponins, repeat his EKG. Formal echo not available until Friday but will get POCUS in the a.m. (4) COVID: Status: Acute Assessment and plan: unclear to the timing of his most recent infection but when hospitalized for alcohol withdrawal in late December 19, 2021 he was negative. He is vaccinated w/ Moderna last year but has yet to get his booster vaccination. I will give him MAB but he does not need oxygen and has no respiratory symptoms. I have put him on full anticoagulation prophylaxis in accordance w/ latest findings for prevention of thromboembolism in COVID-19. History of Present Illness History of Present Illness Chief Complaint: Depression, acute alcohol withdrawal, self-destructive behavior Narrative: 41-year-old male with history anxiety and depression as well as alcoholism, drinks up to half a gallon of vodka per day and has had prior episodes of alcohol withdrawal including to remote events in which she had seizures. He now presents to the emergency department with increased anxiety and agitation and tremulousness and tachycardia as well as acts of self harm including cutting of his left wrist which were not of any significant trauma just some superficial skin cutting. Patient has a history of narcotic drug abuse and is currently a client at [facility] where he receives methadone daily. Evaluation in the emergency department found that he was very tremulous heart rate in the 110s sinus tachycardia and with the elevated CIWA score of 17. Patient was given 2 mg of Ativan and 50 mg of Librium in the emergency department with a favorable response in which his tremulous improved and his tachycardia improved with a heart rate down in the 90s. He had further work-up including routine labs that showed elevated anion gap of 17 and an elevated BUN of 26 with a normal creatinine 0.8 and hypokalemia with a potassium of 3.0. LFTs were mildly elevated with an AST of 58 ALT 87 and alkaline phosphatase of 125 with a normal total bilirubin 0.9. His troponin I level was elevated at 76. Patient denied any chest pain or chest pressure or shortness of breath. ECG demonstrated sinus tachycardia rate of 104 bpm with some inferolateral ST depression and borderline ECG criteria for LVH. 4-hour troponin is already declining at 65 ng/L. Patient states that he developed COVID about 3 weeks ago despite the fact that he has been vaccinated with the majority of vaccine however he has not received any booster. His vaccination was received last year. Of note is nasal swab for SARS-CoV-2 PCR was positive. As it is unclear as to the exact timing of his infection we will give him monoclonal antibody. Of note he did have a negative Covid swab during his hospitalization on 12/19/2021. But prior to that had a positive infection in late October and early November of this year. So it appears that the current infection is relatively new. Patient will receive Bebtelovimab to cover for the newest variant of Covid-19. Present time patient states that he wants help to deal with his alcohol withdrawal and depression. He is currently denying any suicidal thoughts. Patient is being admitted to the intensive care unit monitoring and treatment of acute alcohol withdrawal as well as monitoring of serial troponin levels to rule out an NSTEMI versus demand ischemia as well as to treat him for recent COVID-19 infection. Review of Systems Constitutional Constitutional: Reports fatigue and Reports poor appetite ENT Ears, Nose, Mouth, and Throat: Denies abnormal hearing Cardiovascular Cardiovascular: Denies chest pain, Reports palpitations and Denies dyspnea Respiratory Respiratory: Denies dyspnea Gastrointestinal Gastrointestinal: Denies abdominal pain and Reports other (Decreased appetite over the last 2 to 3 days) Musculoskeletal Musculoskeletal: Reports tingling Neurologic Neurologic: Denies abnormal hearing, Reports behavioral changes (Agitation), Denies other visual disturbances, Denies seizure-like activity, Reports tingling and Reports tremor(s) Psychiatric Psychiatric: Reports behavioral changes (Agitation), Reports change in appetite (Depressed appetite), Reports depression, Reports difficulty concentrating, Denies auditory hallucinations, Denies visual hallucinations, Denies hallucinations, Denies tactile hallucinations, Denies homicidal ideation and Reports suicidal ideation (He implicitly denies desire to hurt himself or commit suicide yet admits to) Endocrine Endocrine: Reports fatigue and Reports palpitations PFSH All Active Problems COVID (Acute) Elevated troponin (Acute) Depression with suicidal ideation (Acute) Anxiety (Acute 09/05/17) Methadone dependence (Acute 04/01/18) [facility] in [facility] Hx intranasal and oral use of opioids. Meets with therapist twice monthly; has had take-home in the past. Alcohol abuse with withdrawal (Acute) Family history of diabetes mellitus (DM) (Acute 09/05/17) Medical History ADD (attention deficit disorder) Closed right ankle fracture (~09/2019) COVID Erectile dysfunction (10/03/17) Gynecomastia, male (03/11/18) secondary to methadone Hyperglycemia (09/05/17) Hyperprolactinemia (04/15/18) Hypertension Hypogonadism, male (03/24/18) Pending appt with Dr. Charles at [facility] in [place] Internal derangement of left knee QT prolongation Sprain of anterior cruciate ligament of left knee (~09/2019) Tobacco abuse (11/19/17) 1/2 ppd Family History Mother Diabetes Cancer thyroid cancer Father Diabetes Essential hypertension Paternal Grandfather No problems noted. Maternal Grandfather Stroke Paternal Uncle Cancer stomach cancer Social History Smoking/Tobacco Use Status: Current every day Tobacco Type: cigarettes Smoking risk assessment performed?: Yes Alcohol Intake: current Alcohol Intake frequency: 3 or more drinks per day Alcohol type: beer and hard liquor Drug use: Occasionally Substance use type: does not use Details: normally drinks 1/2 gallon per 24 hours Household members: other Details: 3 other men in recovery. 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 Current gender identity: male Do you feel safe at home: Yes Do you feel safe in your relationship?: Yes Meds Allergies and Home Medications Allergies Allergy/AdvReac Type Severity Reaction Status Date / Time No Known Allergies Allergy Verified 01/25/22 15:17 Home Medications Medication Instructions Recorded Confirmed Type methadone 5 mg/5 mL oral solution 130 mg PO DAILY ml 09/05/17 01/25/22 History multivitamin 1 tab PO DAILY 08/15/21 01/25/22 History clonidine HCl 0.2 mg tablet 0.2 mg PO BID #60 tab 10/05/21 01/25/22 Rx folic acid 1 mg tablet 1 mg PO QAM #0 tab 11/14/21 12/20/21 Rx thiamine mononitrate (vit B1) 100 100 mg PO QAM #0 tab 11/14/21 12/19/21 Rx mg tablet (Vitamin B-1 (mononitrate)) fluoxetine 40 mg capsule 40 mg PO DAILY #30 cap 11/30/21 01/25/22 Rx chlordiazepoxide HCl 25 mg capsule See Rx Instructions .ROUTE 12/23/21 Rx .COMPLEX #39 cap nicotine 14 mg/24 hr daily 14 mg TRANSDERMAL DAILY #0 ea 12/23/21 01/25/22 Rx transdermal patch lisdexamfetamine 60 mg capsule 60 mg PO QAM #28 cap MDD 60 01/22/22 01/25/22 Rx Exam Narrative Exam Narrative: Middle-aged white male who appears to be anxious with a lot of tremors in his hands with psychomotor hyperactivity along with hyperhidrosis however he remains alert and oriented HEENT appears to be dry mucosal membranes Neck supple nontender normal carotid pulses no JVD Lungs are clear to auscultation Heart is tachycardic but regular Abdomen soft and nontender Lower extremities without peripheral cyanosis or edema Upper extremities with superficial skin cuts of the left volar surface of his left forearm but no deep lacerations below the epidermis. Neurologic exam grossly intact no focal motor or sensory deficits no facial asymmetry no dysarthric speech normal strength and range of motion. Psychiatric exam he is agitated and shows psychomotor hyperactivity with frequent repetitive movement with his hands along with tremors and fidgeting unable to sit still and unable to concentrate. Speech is rapid but fluent. He is able to answer questions directly and able to focus on the questions at hand. He has no visual or auditory hallucinations. Currently denies a desire to commit suicide. Results Imaging EKG: image reviewed Labs Result diagrams: 01/25/22 15:55 01/25/22 15:55 Labs: Laboratory Results - last 24 hr 01/25/22 01/25/22 01/25/22 15:55 15:55 16:15 WBC 10.53 RBC 4.50 Hgb 15.2 Hct 43.2 MCV 96.0 H MCH 33.8 H MCHC 35.2 RDW 12.8 Plt Count 216 MPV 9.5 Immature Gran % 0.2 Neutrophils % 65.2 Lymphocytes % 23.1 Monocytes % 10.7 Eosinophils % 0.5 Basophils % 0.3 Nucleated RBC % 0 Absolute Neutrophils 6.87 H Absolute Lymphocytes 2.43 Absolute Monocytes 1.13 H Absolute Eosinophils 0.05 Absolute Basophils 0.03 Sodium 138 Potassium 3.0 L Chloride 97 L Carbon Dioxide 23.9 Anion Gap 17.1 H BUN 26 H Creatinine 0.8 Estimated GFR/1.73 m2 >= 60.00 Glucose 114 H Calcium 9.9 Magnesium 2.4 Total Bilirubin 0.9 AST 58 H ALT 87 H Alkaline Phosphatase 125 H Troponin I 76 H* Total Protein 8.7 H Albumin 4.7 Urine Color Urine Clarity Urine pH Ur Specific [place] Urine Protein Urine Ketones Urine Blood Urine Nitrite Urine Bilirubin Urine Urobilinogen Ur Leukocyte Esterase Urine Glucose Urine Opiates Screen Urine Methadone Screen Ur Barbiturates Screen Ur Tricyclics Screen Ur Amphetamines Screen U Benzodiazepines Scrn Urine Cocaine Screen Ur THC Screen Ethyl Alcohol 148.6 H COVID-19 Source Nasal/Nares SARS-CoV-2 (PCR) POSITIVE A* 01/25/22 01/25/22 16:20 16:20 WBC RBC Hgb Hct MCV MCH MCHC RDW Plt Count MPV Immature Gran % Neutrophils % Lymphocytes % Monocytes % Eosinophils % Basophils % Nucleated RBC % Absolute Neutrophils Absolute Lymphocytes Absolute Monocytes Absolute Eosinophils Absolute Basophils Sodium Potassium Chloride Carbon Dioxide Anion Gap BUN Creatinine Estimated GFR/1.73 m2 Glucose Calcium Magnesium Total Bilirubin AST ALT Alkaline Phosphatase Troponin I Total Protein Albumin Urine Color Yellow Urine Clarity Clear Urine pH 6.0 Ur Specific [place] 1.010 Urine Protein Negative Urine Ketones Negative Urine Blood Negative Urine Nitrite Negative Urine Bilirubin Negative Urine Urobilinogen 0.2 Ur Leukocyte Esterase Negative Urine Glucose Negative Urine Opiates Screen Negative Urine Methadone Screen Positive A Ur Barbiturates Screen Negative Ur Tricyclics Screen Negative Ur Amphetamines Screen Positive A U Benzodiazepines Scrn Negative Urine Cocaine Screen Negative Ur THC Screen Negative Ethyl Alcohol COVID-19 Source SARS-CoV-2 (PCR) Last Vital Signs Temp 36.7 C 01/25/22 15:10 Pulse 98 H 01/25/22 16:03 Resp 19 01/25/22 16:30 BP 123/79 01/25/22 16:03 Pulse Ox 97 01/25/22 16:30 PAWSS Have you Been Recently Intoxicated or Drunk Within the Last 30 days?: Yes Have you Ever Experienced Previous Episodes of Alcohol Withdrawal?: Yes Have you ever Experienced Withdrawal Seizures?: Yes Have you ever Experienced Delirium Tremens(DT)s?: Yes Have you ever undergone Alcohol Rehabilitation Treatment (i.e, inpt ot outpatient treatment programs)?: Yes Have you ever Experienced Blackouts?: Yes Have you ever Combined Alcohol with other Downers within the last 90 days?: Yes Have you ever Combined Alcohol with any other Substance of Abuse during the last 90 days?: No Evidence of Increased Autonomic Activity (i.e. HR>120, tremor, sweating, agitation, nausea)?: Yes Result: 7
[2022-01-25] MEDS: Normal Saline 250 ML 30 ML IV (19:30)
[2022-01-25 20:03] LABS: C-Reactive Protein 2.81 mg/dL (0.0-0.3)
[2022-01-25 20:18] LABS: D-Dimer 357 ng/mlFEU (<500)
[2022-01-25 20:23] LABS: Ferritin 390 ng/mL (26-388); Potassium 3.9 mmol/L (3.5-5.1); Troponin I 65 ng/L (<or=60)
[2022-01-25 21:06] LABS: NT-proBNP 114 pg/mL (<300)
[2022-01-25] MEDS: Famotidine 20 MG TAB PO (21:38)
[2022-01-25] MEDS: cloNIDine 0.1 MG TAB 0.2 MG PO (21:38)
[2022-01-25] MEDS: Enoxaparin 80 MG/0.8 ML SYR 70 MG SC (21:38)
[2022-01-25] MEDS: LORazepam 1 MG TAB PO/SL (23:31)
[2022-01-26] VITALS (175 sets, daily range): BP systolic 97–154; BP diastolic 56–109; PULSE 50–123; RESP 8–29; TEMP 36.3–36.6; O2SAT 90–99
[2022-01-26 00:10] LABS: Troponin I 58 ng/L (<or=60)
[2022-01-26] MEDS: chlordiazePOXIDE 25 MG CAP 50 MG PO (05:52)
[2022-01-26 06:47] LABS: Abs Immature Grans 0.01 10^3/uL (0.0-0.06); Absolute Basophil Count 0.03 10^3/uL (0.0-0.2); Absolute Eosinophil Count 0.13 10^3/uL (0.0-0.7); Absolute Lymphocyte Count 2.58 10^3/uL (1.2-3.4); Absolute Neutrophil Count 2.24 10^3/uL (1.2-6.7); Basophils % 0.5; Eosinophils % 2.3; HCT 40.4 % (40.0-50.0); HGB 13.6 g/dL (13.5-17.5); Immature Grans % 0.2; Lymphocytes % 46.2; MCH 33.7 pg (27.0-33.0); MCHC 33.7 % (32.0-36.0); MCV 100.2 fL (80-95); MPV 9.6 fL (8.0-11.0); Monocytes % 10.7; Neutrophils % 40.1; Nucleated RBC 0 %; Platelet Count 151 10^3/uL (130-400); RBC 4.03 10^6/uL (4.36-5.78); RDW-SD 48.5 fL; WBC 5.59 10^3/uL (4.4-10.8)
[2022-01-26 07:18] LABS: D-Dimer 685 ng/mlFEU (<500)
[2022-01-26 07:28] LABS: ALT 67 U/L (16-63); ALT 69 U/L (16-63); AST 46 U/L (15-37); Albumin 3.4 g/dL (3.4-5.0); Alkaline Phosphatase 90 U/L (46-116); Alkaline Phosphatase 91 U/L (46-116); BUN 17 mg/dL (7-18); Bilirubin, Direct 0.2 mg/dL (0.0-0.2); Bilirubin, Total 0.6 mg/dL (0.2-1.0); Bilirubin, Total 0.7 mg/dL (0.2-1.0); C-Reactive Protein 1.86 mg/dL (0.0-0.3); CREATININE 0.8 mg/dL (0.70-1.30); Calcium 8.8 mg/dL (8.5-10.1); Chloride 109 mmol/L (98-107); Glucose 99 mg/dL (74-106); Magnesium 2.5 mg/dL (1.8-2.4); Potassium 3.8 mmol/L (3.5-5.1); Sodium 144 mmol/L (136-145); Total Protein 6.3 g/dL (6.4-8.2); Total Protein 6.4 g/dL (6.4-8.2); Troponin I < 50 ng/L (<or=60)
--- NOTE | 2022-01-26 07:52 | NUR.NOTE ---
Patient is sleeping soundly. RN will allow patient to sleep Vital signs are stable.Nursing Note:
--- NOTE | 2022-01-26 07:57 | NUR.NOTE ---
RN checks with pharmacy to see if pharmacist confirmed Methadone dosing with [facility] which pharmacist has in fact done. Said medication is being sent up to ICU.Nursing Note:
[2022-01-26] MEDS: cloNIDine 0.1 MG TAB 0.2 MG PO ×2 (08:03→19:42)
[2022-01-26] MEDS: Famotidine 20 MG TAB PO ×2 (08:04→19:42)
[2022-01-26] MEDS: FLUoxetine 20 MG CAP 40 MG PO (08:04)
[2022-01-26] MEDS: Folic Acid 1 MG TAB PO (08:04)
[2022-01-26] MEDS: Multivitamin TAB 1 TAB PO (08:05)
[2022-01-26] MEDS: Thiamine 100 MG TAB PO (08:05)
[2022-01-26] MEDS: Methadone Liquid 10 MG/ML 130 MG PO (08:17)
--- NOTE | 2022-01-26 08:32 | PDOC.CMIN ---
- If Service Date Differs Date of service: 01/26/22 Time of Service: 08:32 Care Management Initial Assess REASON FOR HOSPITALIZATION:: alcohol withdrawal, elevated troponins PAST MEDICAL HISTORY/PAST SURGICAL HISTORY:: Medical History . ADD (attention deficit disorder). Closed right ankle fracture (~09/2019). COVID. Erectile dysfunction (10/03/17). Gynecomastia, male (03/11/18). secondary to methadone. Hyperglycemia (09/05/17). Hyperprolactinemia (04/15/18). Hypertension. Hypogonadism, male (03/24/18). Pending appt with Dr. Charles at [facility] in [place]. Internal derangement of left knee. QT prolongation. Sprain of anterior cruciate ligament of left knee (~09/2019). Tobacco abuse (11/19/17). 1/2 ppd PREVIOUS FUNCTIONAL STATUS/SOCIAL/FAMILY SUPPORTS:: Per provider, Dangelo is living in a supported program for alcohol dependence. with 3 other men in recovery. He is from his . They have one child named Elizabeth, who per report, is 14 years old. He is independent at baseline. CURRENT FUNCTIONAL STATUS:: CM was unable to meet with Dangelo in person as he is Covid positive. Details were obtained from documentation in his record as well as conversations with the provider and nursing staff. Dangelo is withdrawing from alcohol at this time and is medicated, so phone contact was not an option. ADVANCE DIRECTIVES:: none on file Has patient been provided with info about the portal/API?: Yes Did the patient sign up for the portal?: Yes (previously) CODE STATUS:: Full Code INSURANCE COVERAGE / FINANCIAL ISSUES:: Medicaid CURRENT HOME/COMMUNITY SERVICES/EQUIPMENT:: Dangelo is living in a supported program for alcohol dependence. Attends [facility] for methadone maintenance PRIMARY CARE PHYSICIAN:: Sophia Kelsey POTENTIAL DISCHARGE NEEDS:: follow up with mental health and PCP. Possibly rehab for substance use (alcohol) PATIENT/FAMILY EDUCATION NEEDS:: Review of discharge instructions, limitations, resources for substance use such as [employer], follow up plan, [employer] TRANSPORTATION:: to be determined by diisposition; [facility] private vehicle with family PLAN:: Dangelo has expressed interest in entering rehab for his alcohol use once he is discharged. He met with a Materials And Corrosion Engineer in the ED who can assist with the process when he is medically stable. CM will continue to support Dangelo and assess for ongoing discharge concerns.
[2022-01-26 08:51] LABS: Calculated LDL 62 mg/dL (<100); Cholesterol 144 mg/dL (<200); Ferritin 310 ng/mL (26-388); HDL Cholesterol 76 mg/dL (40-60); Triglyceride 31 mg/dL (<150)
[2022-01-26] MEDS: Enoxaparin 80 MG/0.8 ML SYR 70 MG SC ×2 (09:14→22:41)
--- NOTE | 2022-01-26 10:15 | RT.EKG_ITS ---
APPROVED REPORT Exam: Resting ECG Reason for Exam: elevated troponin level Patient Location: I HR:54 bpm ECG Measurements Heart Rate 54 AXIS MS 128 P 50 QRSd 107 QRS 49 QT 485 T 24 QTc 460 Conclusion Sinus rhythm...normal P axis, V-rate 50- 99 Atrial premature complex...SV complex w/ short R-R interval
[2022-01-26] MEDS: LORazepam 1 MG TAB PO/SL ×2 (10:23→19:41)
--- NOTE | 2022-01-26 10:46 | NUR.NOTE ---
EKG performed by respiratory therapist.Nursing Note:
--- NOTE | 2022-01-26 10:48 | NUR.NOTE ---
Patient given 2mg of Ativan PO for CIWA score of 9.Nursing Note:
[2022-01-26] MEDS: Normal Saline Flush 10 ML SYR IVP (11:20)
[2022-01-26] MEDS: chlordiazePOXIDE 25 MG CAP 100 MG PO ×2 (12:15→17:49)
--- NOTE | 2022-01-26 12:34 | W.PM.PROGNOT ---
Date of Service Date of service: 01/26/22 Time of Service: 12:34 Assessment and Plan Assessment and plan (1) Alcohol abuse with withdrawal: Status: Acute Assessment and plan: Continue CIWA protocol including scheduled and as needed doses of benzodiazepines including oral Librium and as needed IV Ativan. Continue MVS and thiamine and folic acid. (2) Depression with suicidal ideation: Status: Acute Assessment and plan: will have mental health evaluation upon medical stabilization from his alcohol withdrawal and after evaluation for his elevated troponin (3) Elevated troponin: Status: Acute Assessment and plan: probably demand ischemia. We will get a formal echocardiogram on Friday. Troponins have now normalized. (4) COVID: Status: Acute Assessment and plan: For some reason patient did not receive his monoclonal antibody last night. He has since been given this. He has no symptoms of dyspnea or hypoxemia. He did not get a formal chest x-ray on admission. I will recommend to the patient that he get follow-up booster COVID vaccine upon discharge. Subjective Subjective Interval history since last seen: Patient's alcohol withdrawal symptoms are improving although he has required some repeat doses of lorazepam this morning. Early this morning his CIWA scores were 1-2 but midmorning he came up to 9 but since receiving the lorazepam he is improved. I have increased his Librium to 100 mg 4 times daily since he has required repeated doses of IV lorazepam. His troponin levels have normalized now at less than 50 they did peak up to 76 last night. Repeat ECG was done this morning demonstrates sinus bradycardia rate of [address]-T wave abnormalities in the anteroseptal leads. We will get a formal echocardiogram on Friday. Patient denies any chest pain or pressure denies any dyspnea. While patient has no specific plans for committing suicide he admits that he could care less if he ever woke up again. Exam Narrative Exam Narrative: Patient is alert and oriented answers questions appropriately. Psych complaint is a sore on the right side of his tongue. Examination of the tongue appears to have an aphthous ulcer along the right lateral midportion of the tongue. No exudates. Lungs are clear to auscultation Heart is regular rate and rhythm Abdomen soft and nontender Neuro exam tremors his diminished considerably. He has no asterixis. Speak in a calm and controlled manner. Objective Last Vital Signs Temp 36.3 C L 01/26/22 09:41 Pulse 68 04/02/22 09:41 Resp 14 01/26/22 09:41 BP 125/86 01/26/22 09:41 Pulse Ox 95 01/26/22 09:41 Laboratory Results - last 24 hr 01/25/22 01/25/22 01/25/22 15:55 15:55 15:55 WBC 10.53 RBC 4.50 Hgb 15.2 Hct 43.2 MCV 96.0 H MCH 33.8 H MCHC 35.2 RDW 12.8 Plt Count 216 MPV 9.5 Immature Gran % 0.2 Neutrophils % 65.2 Lymphocytes % 23.1 Monocytes % 10.7 Eosinophils % 0.5 Basophils % 0.3 Nucleated RBC % 0 Absolute Neutrophils 6.87 H Absolute Lymphocytes 2.43 Absolute Monocytes 1.13 H Absolute Eosinophils 0.05 Absolute Basophils 0.03 D-Dimer Sodium 138 Potassium 3.0 L Chloride 97 L Carbon Dioxide 23.9 Anion Gap 17.1 H BUN 26 H Creatinine 0.8 Estimated GFR/1.73 m2 >= 60.00 Glucose 114 H Calcium 9.9 Phosphorus 4.0 Magnesium 2.4 Ferritin Total Bilirubin 0.9 Conjugated Bilirubin AST 58 H ALT 87 H Alkaline Phosphatase 125 H Troponin I 76 H* C-Reactive Protein NT-Pro-B Natriuret Pep Total Protein 8.7 H Albumin 4.7 Triglycerides Total Cholesterol LDL Cholesterol, Calc HDL Cholesterol Urine Color Urine Clarity Urine pH Ur Specific [place] Urine Protein Urine Ketones Urine Blood Urine Nitrite Urine Bilirubin Urine Urobilinogen Ur Leukocyte Esterase Urine Glucose Urine Opiates Screen Urine Methadone Screen Ur Barbiturates Screen Ur Tricyclics Screen Ur Amphetamines Screen U Benzodiazepines Scrn Urine Cocaine Screen Ur THC Screen Ethyl Alcohol 148.6 H COVID-19 Source SARS-CoV-2 (PCR) Patient ABO/Rh Antibody Screen 01/25/22 01/25/22 01/25/22 16:15 16:20 16:20 WBC RBC Hgb Hct MCV MCH MCHC RDW Plt Count MPV Immature Gran % Neutrophils % Lymphocytes % Monocytes % Eosinophils % Basophils % Nucleated RBC % Absolute Neutrophils Absolute Lymphocytes Absolute Monocytes Absolute Eosinophils Absolute Basophils D-Dimer Sodium Potassium Chloride Carbon Dioxide Anion Gap BUN Creatinine Estimated GFR/1.73 m2 Glucose Calcium Phosphorus Magnesium Ferritin Total Bilirubin Conjugated Bilirubin AST ALT Alkaline Phosphatase Troponin I C-Reactive Protein NT-Pro-B Natriuret Pep Total Protein Albumin Triglycerides Total Cholesterol LDL Cholesterol, Calc HDL Cholesterol Urine Color Yellow Urine Clarity Clear Urine pH 6.0 Ur Specific [place] 1.010 Urine Protein Negative Urine Ketones Negative Urine Blood Negative Urine Nitrite Negative Urine Bilirubin Negative Urine Urobilinogen 0.2 Ur Leukocyte Esterase Negative Urine Glucose Negative Urine Opiates Screen Negative Urine Methadone Screen Positive A Ur Barbiturates Screen Negative Ur Tricyclics Screen Negative Ur Amphetamines Screen Positive A U Benzodiazepines Scrn Negative Urine Cocaine Screen Negative Ur THC Screen Negative Ethyl Alcohol COVID-19 Source Nasal/Nares SARS-CoV-2 (PCR) POSITIVE A* Patient ABO/Rh Antibody Screen 01/25/22 01/25/22 01/25/22 18:56 19:30 19:30 WBC RBC Hgb Hct MCV MCH MCHC RDW Plt Count MPV Immature Gran % Neutrophils % Lymphocytes % Monocytes % Eosinophils % Basophils % Nucleated RBC % Absolute Neutrophils Absolute Lymphocytes Absolute Monocytes Absolute Eosinophils Absolute Basophils D-Dimer Sodium Potassium Chloride Carbon Dioxide Anion Gap BUN Creatinine Estimated GFR/1.73 m2 Glucose Calcium Phosphorus Magnesium Ferritin Cancelled Total Bilirubin Conjugated Bilirubin AST ALT Alkaline Phosphatase Troponin I 65 H* C-Reactive Protein 2.81 H NT-Pro-B Natriuret Pep Cancelled Total Protein Albumin Triglycerides Total Cholesterol LDL Cholesterol, Calc HDL Cholesterol Urine Color Urine Clarity Urine pH Ur Specific [place] Urine Protein Urine Ketones Urine Blood Urine Nitrite Urine Bilirubin Urine Urobilinogen Ur Leukocyte Esterase Urine Glucose Urine Opiates Screen Urine Methadone Screen Ur Barbiturates Screen Ur Tricyclics Screen Ur Amphetamines Screen U Benzodiazepines Scrn Urine Cocaine Screen Ur THC Screen Ethyl Alcohol COVID-19 Source SARS-CoV-2 (PCR) Patient ABO/Rh Antibody Screen 01/25/22 01/25/22 01/25/22 19:30 19:30 19:30 WBC RBC Hgb Hct MCV MCH MCHC RDW Plt Count MPV Immature Gran % Neutrophils % Lymphocytes % Monocytes % Eosinophils % Basophils % Nucleated RBC % Absolute Neutrophils Absolute Lymphocytes Absolute Monocytes Absolute Eosinophils Absolute Basophils D-Dimer 357 Sodium Potassium 3.9 D Chloride Carbon Dioxide Anion Gap BUN Creatinine Estimated GFR/1.73 m2 Glucose Calcium Phosphorus Magnesium Ferritin 390 H Total Bilirubin Conjugated Bilirubin AST ALT Alkaline Phosphatase Troponin I C-Reactive Protein NT-Pro-B Natriuret Pep 114 Total Protein Albumin Triglycerides Total Cholesterol LDL Cholesterol, Calc HDL Cholesterol Urine Color Urine Clarity Urine pH Ur Specific [place] Urine Protein Urine Ketones Urine Blood Urine Nitrite Urine Bilirubin Urine Urobilinogen Ur Leukocyte Esterase Urine Glucose Urine Opiates Screen Urine Methadone Screen Ur Barbiturates Screen Ur Tricyclics Screen Ur Amphetamines Screen U Benzodiazepines Scrn Urine Cocaine Screen Ur THC Screen Ethyl Alcohol COVID-19 Source SARS-CoV-2 (PCR) Patient ABO/Rh A Positive Antibody Screen NEGATIVE 01/25/22 01/25/22 01/25/22 21:57 23:00 23:40 WBC RBC Hgb Hct MCV MCH MCHC RDW Plt Count MPV Immature Gran % Neutrophils % Lymphocytes % Monocytes % Eosinophils % Basophils % Nucleated RBC % Absolute Neutrophils Absolute Lymphocytes Absolute Monocytes Absolute Eosinophils Absolute Basophils D-Dimer Sodium Potassium Cancelled Chloride Carbon Dioxide Anion Gap BUN Creatinine Estimated GFR/1.73 m2 Glucose Calcium Phosphorus Magnesium Ferritin Total Bilirubin Conjugated Bilirubin AST ALT Alkaline Phosphatase Troponin I Cancelled 58 C-Reactive Protein NT-Pro-B Natriuret Pep Total Protein Albumin Triglycerides Total Cholesterol LDL Cholesterol, Calc HDL Cholesterol Urine Color Urine Clarity Urine pH Ur Specific [place] Urine Protein Urine Ketones Urine Blood Urine Nitrite Urine Bilirubin Urine Urobilinogen Ur Leukocyte Esterase Urine Glucose Urine Opiates Screen Urine Methadone Screen Ur Barbiturates Screen Ur Tricyclics Screen Ur Amphetamines Screen U Benzodiazepines Scrn Urine Cocaine Screen Ur THC Screen Ethyl Alcohol COVID-19 Source SARS-CoV-2 (PCR) Patient ABO/Rh Antibody Screen 01/26/22 01/26/22 01/26/22 05:55 05:55 05:55 WBC 5.59 D RBC 4.03 L Hgb 13.6 Hct 40.4 MCV 100.2 H D MCH 33.7 H MCHC 33.7 RDW 13.0 Plt Count 151 MPV 9.6 Immature Gran % 0.2 Neutrophils % 40.1 Lymphocytes % 46.2 Monocytes % 10.7 Eosinophils % 2.3 Basophils % 0.5 Nucleated RBC % 0 Absolute Neutrophils 2.24 Absolute Lymphocytes 2.58 Absolute Monocytes 0.60 Absolute Eosinophils 0.13 Absolute Basophils 0.03 D-Dimer Sodium Cancelled 144 Potassium Cancelled 3.8 Chloride Cancelled 109 H Carbon Dioxide Cancelled 26.0 Anion Gap Cancelled 9.0 BUN Cancelled 17 D Creatinine Cancelled 0.8 Estimated GFR/1.73 m2 Cancelled >= 60.00 Glucose Cancelled 99 Calcium Cancelled 8.8 Phosphorus Magnesium 2.5 H Ferritin 310 Total Bilirubin 0.7 0.6 Conjugated Bilirubin 0.2 AST 46 H 46 H ALT 67 H 69 H Alkaline Phosphatase 91 90 Troponin I < 50 C-Reactive Protein 1.86 H NT-Pro-B Natriuret Pep Total Protein 6.3 L 6.4 Albumin 3.4 3.4 Triglycerides 31 Total Cholesterol 144 LDL Cholesterol, Calc 62 HDL Cholesterol 76 Urine Color Urine Clarity Urine pH Ur Specific [place] Urine Protein Urine Ketones Urine Blood Urine Nitrite Urine Bilirubin Urine Urobilinogen Ur Leukocyte Esterase Urine Glucose Urine Opiates Screen Urine Methadone Screen Ur Barbiturates Screen Ur Tricyclics Screen Ur Amphetamines Screen U Benzodiazepines Scrn Urine Cocaine Screen Ur THC Screen Ethyl Alcohol COVID-19 Source SARS-CoV-2 (PCR) Patient ABO/Rh Antibody Screen 01/26/22 05:55 WBC RBC Hgb Hct MCV MCH MCHC RDW Plt Count MPV Immature Gran % Neutrophils % Lymphocytes % Monocytes % Eosinophils % Basophils % Nucleated RBC % Absolute Neutrophils Absolute Lymphocytes Absolute Monocytes Absolute Eosinophils Absolute Basophils D-Dimer 685 H Sodium Potassium Chloride Carbon Dioxide Anion Gap BUN Creatinine Estimated GFR/1.73 m2 Glucose Calcium Phosphorus Magnesium Ferritin Total Bilirubin Conjugated Bilirubin AST ALT Alkaline Phosphatase Troponin I C-Reactive Protein NT-Pro-B Natriuret Pep Total Protein Albumin Triglycerides Total Cholesterol LDL Cholesterol, Calc HDL Cholesterol Urine Color Urine Clarity Urine pH Ur Specific [place] Urine Protein Urine Ketones Urine Blood Urine Nitrite Urine Bilirubin Urine Urobilinogen Ur Leukocyte Esterase Urine Glucose Urine Opiates Screen Urine Methadone Screen Ur Barbiturates Screen Ur Tricyclics Screen Ur Amphetamines Screen U Benzodiazepines Scrn Urine Cocaine Screen Ur THC Screen Ethyl Alcohol COVID-19 Source SARS-CoV-2 (PCR) Patient ABO/Rh Antibody Screen PAWSS Have you Been Recently Intoxicated or Drunk Within the Last 30 days?: Yes Have you Ever Experienced Previous Episodes of Alcohol Withdrawal?: Yes Have you ever Experienced Withdrawal Seizures?: Yes Have you ever Experienced Delirium Tremens(DT)s?: Yes Have you ever undergone Alcohol Rehabilitation Treatment (i.e, inpt ot outpatient treatment programs)?: Yes Have you ever Experienced Blackouts?: Yes Have you ever Combined Alcohol with other Downers within the last 90 days?: Yes Have you ever Combined Alcohol with any other Substance of Abuse during the last 90 days?: No Evidence of Increased Autonomic Activity (i.e. HR>120, tremor, sweating, agitation, nausea)?: Yes Result: 7
[2022-01-26] MEDS: Atorvastatin 20 MG TAB PO (19:41)
[2022-01-26] MEDS: Lidocaine 2% Viscous 15 ML CUP PO (20:05)
[2022-01-27] VITALS (118 sets, daily range): BP systolic 113–146; BP diastolic 78–96; PULSE 48–100; RESP 6–26; TEMP 36–37.5; O2SAT 91–99
[2022-01-27] MEDS: LORazepam 1 MG TAB PO/SL ×4 (00:04→20:53)
[2022-01-27] MEDS: chlordiazePOXIDE 25 MG CAP 100 MG PO ×4 (00:05→18:18)
[2022-01-27 06:23] LABS: Abs Immature Grans 0.01 10^3/uL (0.0-0.06); Absolute Basophil Count 0.03 10^3/uL (0.0-0.2); Absolute Eosinophil Count 0.15 10^3/uL (0.0-0.7); Absolute Lymphocyte Count 1.82 10^3/uL (1.2-3.4); Absolute Monocyte Count 0.43 10^3/uL (0.1-0.8); Absolute Neutrophil Count 2.19 10^3/uL (1.2-6.7); Basophils % 0.6; Eosinophils % 3.2; Immature Grans % 0.2; Lymphocytes % 39.3; MCH 34.1 pg (27.0-33.0); MCHC 33.3 % (32.0-36.0); MCV 102.2 fL (80-95); MPV 9.4 fL (8.0-11.0); Monocytes % 9.3; Neutrophils % 47.4; Nucleated RBC 0 %; Platelet Count 142 10^3/uL (130-400); RBC 4.11 10^6/uL (4.36-5.78); RDW 13.1 % (11.8-14.1); RDW-SD 49.9 fL; WBC 4.63 10^3/uL (4.4-10.8)
[2022-01-27] MEDS: Lidocaine 2% Viscous 15 ML CUP PO ×5 (06:25→20:53)
[2022-01-27 06:37] LABS: ALT 98 U/L (16-63); AST 75 U/L (15-37); Albumin 3.2 g/dL (3.4-5.0); Alkaline Phosphatase 90 U/L (46-116); Anion Gap 6.8 mmol/L (3-11); BUN 15 mg/dL (7-18); Bilirubin, Total 0.7 mg/dL (0.2-1.0); C-Reactive Protein 1.15 mg/dL (0.0-0.3); CO2 28.2 mmol/L (21.0-32.0); CREATININE 0.8 mg/dL (0.70-1.30); Calcium 8.8 mg/dL (8.5-10.1); Chloride 107 mmol/L (98-107); Glucose 95 mg/dL (74-106); Potassium 3.6 mmol/L (3.5-5.1); Sodium 142 mmol/L (136-145); Total Protein 6.2 g/dL (6.4-8.2)
[2022-01-27 06:59] LABS: D-Dimer 1063 ng/mlFEU (<500)
--- NOTE | 2022-01-27 08:34 | PGE_ITS ---
Date of Service Date of service: 01/27/22 Time of Service: 08:34 Assessment and Plan Assessment and plan (1) Alcohol abuse with withdrawal: Status: Acute Assessment and plan: Continue CIWA protocol including scheduled and as needed doses of benzodiazepines including oral Librium and as needed IV Ativan. Continue MVS and thiamine and folic acid. 30 minutes critical care time spent evaluating the patient and discussing his case with nursing as well as formulating a plan and orders. (2) Depression with suicidal ideation: Status: Acute Assessment and plan: will have mental health evaluation upon medical stabilization from his alcohol withdrawal and after evaluation for his elevated troponin. (3) Elevated troponin: Status: Acute Assessment and plan: probably demand ischemia. We will get a formal echocardiogram on Friday. Troponins have now normalized. I am withholding his Lisdexamfetamine (4) COVID: Status: Acute Assessment and plan: Patient received a monoclonal antibody Bebtelovimab. Patient is on therapeutic dose Lovenox as per recommended guidelines. (5) Methadone dependence: Status: Acute Assessment and plan: continue his home dose of methadone as prescribed through [facility]. Patient prefers to receive this at 5:30 am Subjective Subjective Interval history since last seen: Patient is reporting auditory hallucinations. He states he is hearing feet walking across the ceiling of his room. I told him I thought that this is probably the air exchange or do the negative air pressure condition of his room but he swears he hears feet walking across the room. He denies any visual hallucinations. His CIWA score was high last night up to 9. He was still requiring oral Ativan. This morning his CIWA scores down to 5. He is currently on Librium 100 mg 4 times daily along with MVS and thiamine and folic acid for treatment of his acute alcohol withdrawal. Patient received monoclonal antibody treatment for his COVID-19 infection. Exam Narrative Exam Narrative: Dangelo is alert and he is oriented to person place month year hospital name city and state. He is also oriented to the circumstances leading up to his hospitalization. He insists that he is hearing sounds like feet walking across the ceiling from the corner of his room but denies any visual hallucinations. He still has suicidal thoughts. Lungs are clear to auscultation Heart regular rate and rhythm Abdomen soft and nontender nondistended Neuro exam he is alert and oriented as noted above but with some questionable auditory hallucinations. He has a slight tremor in his hands but that is also improved. Objective Last Vital Signs Temp 37.5 C 01/27/22 05:03 Pulse 69 01/27/22 07:00 Resp 19 01/27/22 07:01 BP 121/87 01/27/22 07:00 Pulse Ox 93 01/27/22 07:01 Laboratory Results - last 24 hr 01/26/22 01/27/22 01/27/22 05:55 05:45 05:45 WBC 4.63 RBC 4.11 L Hgb 14.0 Hct 42.0 MCV 102.2 H MCH 34.1 H MCHC 33.3 RDW 13.1 Plt Count 142 MPV 9.4 Immature Gran % 0.2 Neutrophils % 47.4 Lymphocytes % 39.3 Monocytes % 9.3 Eosinophils % 3.2 Basophils % 0.6 Nucleated RBC % 0 Absolute Neutrophils 2.19 Absolute Lymphocytes 1.82 Absolute Monocytes 0.43 Absolute Eosinophils 0.15 Absolute Basophils 0.03 D-Dimer Sodium 142 Potassium 3.6 Chloride 107 Carbon Dioxide 28.2 Anion Gap 6.8 BUN 15 Creatinine 0.8 Estimated GFR/1.73 m2 >= 60.00 Glucose 95 Calcium 8.8 Ferritin 310 Total Bilirubin 0.7 AST 75 H ALT 98 H Alkaline Phosphatase 90 C-Reactive Protein 1.15 H Total Protein 6.2 L Albumin 3.2 L Triglycerides 31 Total Cholesterol 144 LDL Cholesterol, Calc 62 HDL Cholesterol 76 01/27/22 05:45 WBC RBC Hgb Hct MCV MCH MCHC RDW Plt Count MPV Immature Gran % Neutrophils % Lymphocytes % Monocytes % Eosinophils % Basophils % Nucleated RBC % Absolute Neutrophils Absolute Lymphocytes Absolute Monocytes Absolute Eosinophils Absolute Basophils D-Dimer 1063 H Sodium Potassium Chloride Carbon Dioxide Anion Gap BUN Creatinine Estimated GFR/1.73 m2 Glucose Calcium Ferritin Total Bilirubin AST ALT Alkaline Phosphatase C-Reactive Protein Total Protein Albumin Triglycerides Total Cholesterol LDL Cholesterol, Calc HDL Cholesterol PAWSS Have you Been Recently Intoxicated or Drunk Within the Last 30 days?: Yes Have you Ever Experienced Previous Episodes of Alcohol Withdrawal?: Yes Have you ever Experienced Withdrawal Seizures?: Yes Have you ever Experienced Delirium Tremens(DT)s?: Yes Have you ever undergone Alcohol Rehabilitation Treatment (i.e, inpt ot outpatient treatment programs)?: Yes Have you ever Experienced Blackouts?: Yes Have you ever Combined Alcohol with other Downers within the last 90 days?: Yes Have you ever Combined Alcohol with any other Substance of Abuse during the last 90 days?: No Evidence of Increased Autonomic Activity (i.e. HR>120, tremor, sweating, agitation, nausea)?: Yes Result: 7
[2022-01-27] MEDS: Famotidine 20 MG TAB PO ×2 (08:41→20:30)
[2022-01-27] MEDS: Folic Acid 1 MG TAB PO (08:41)
[2022-01-27] MEDS: FLUoxetine 20 MG CAP 40 MG PO (08:41)
[2022-01-27] MEDS: cloNIDine 0.1 MG TAB 0.2 MG PO ×2 (08:41→20:30)
[2022-01-27] MEDS: Thiamine 100 MG TAB PO (08:42)
[2022-01-27] MEDS: Multivitamin TAB 1 TAB PO (08:42)
[2022-01-27] MEDS: Methadone Liquid 10 MG/ML 130 MG PO (08:42)
[2022-01-27] MEDS: Enoxaparin 80 MG/0.8 ML SYR 70 MG SC ×2 (09:52→20:30)
[2022-01-27] MEDS: Normal Saline Flush 10 ML SYR (09:54)
[2022-01-27] MEDS: Normal Saline Flush 10 ML SYR IVP (16:46)
[2022-01-27] MEDS: Nicotine 21 MG/24 HR PATCH TD (16:48)
[2022-01-27] MEDS: Atorvastatin 20 MG TAB PO (20:30)
[2022-01-27] MEDS: Polyethylene Glycol 3350 17 GM PACKET PO (20:53)
[2022-01-28] VITALS (15 sets, daily range): BP systolic 109–129; BP diastolic 68–88; PULSE 48–70; RESP 9–20; TEMP 36.6; O2SAT 93–98
--- NOTE | 2022-01-28 | DI.US_ITS ---
APPROVED REPORT EXAM: Comprehensive 2D, Doppler, and color-flow Echocardiogram Patient Location: In-Patient Room/Bed: [id number] [employer] Finisher: Tri Salomon RDCS (AE) Indications: Abnormal Troponin, COVID Other Information Study Quality: Adequate. Technically limited study due to inability to position patient, exam done albarado pine. Conclusion Normal left ventricular wall thickness and chamber size. Estimated ejection fraction is 45% with girish bal hypokinesis The right ventricle appears grossly normal in size and systolic function Both atria are normal in size Trileaflet aortic valve without stenosis or regurgitation Thickened mitral leaflets, mild mitral regurgitation Normal tricuspid valve with mild regurgitation. Estimated right ventricular systolic pressure is nor mal at 23 mmHg Wall motion Left Ventricle The left ventricle is normal size. Left ventricular systolic function is mildly decreased. There is n ormal left ventricular wall thickness. There is global hypokinesis of the left ventricle. There is no ventricular septal defect visualized. LVEF is 45%. Right Ventricle Right ventricle is grossly normal in size. Right ventricular systolic function is grossly normal. The RVSP is 23.1mmHg. Atria The left atrium size is normal. The right atrium size is normal. The interatrial septum is intact wit h no evidence for an atrial septal defect. Aortic Valve The aortic valve is normal in structure. Aortic valve is trileaflet. There is no aortic valvular sten osis. No aortic regurgitation is present. Mitral Valve Mitral valve leaflets are thickened. No evidence of mitral valve stenosis. Mild mitral regurgitation. Tricuspid Valve The tricuspid valve is normal in structure. There is no tricuspid valve stenosis. Mild tricuspid regu rgitation. Pulmonic Valve The pulmonary valve is normal in structure. There is no pulmonic valvular stenosis. Mild pulmonic reg urgitation. Great Vessels The aortic root is normal in size. The ascending aorta is normal in size. Aortic arch is not well vis ualized. IVC is normal in size and collapses >50% with inspiration. Pericardium There is no pericardial effusion. 2D Dimensions IVSD d PLAX 1.15 cm M: 0.6-1.2 LV Vol A2C d MOD 121.2 mL LVPW d PLAX 1.11 cm M: 0.6 - 1.2 LV Vol A4C d MOD 113.0 mL LVID d PLAX 5.46 cm M: 4.2 - 5.8 LA vol/ BSA A2C s A-L 17.7 mL/m2 LVDs 4.30 cm M: 2.5 - 4.0 LA vol/ BSA A4C s A-L 24.7 mL/m2 Ao Root d 3.55 cm M: 3.1 - 3.7 LA Vol/ BSA Biplane s A-L 24.8 mL/m2 RA Area A4C 16.11 cm2 LA Area A4C s MOD 17.33 cm2 RA Vol/ BSA A4C s A-L 23.8 mL/m2 LA Area A2C s MOD 12.35 cm2 Ao Asc Diam d 3.26 cm M: 2.6 - 3.4 LV EF A4C MOD 41.5 % LV EF Teichholz 42.3 % LV EF A2C MOD 45.8 % LVEF (Figueroa's) 42.27 % M: 52 - 72 LV EF Biplane MOD 42.3 % LV Volume 90.85 mL M: 62 - 150 SV 49.94 mL LV Volume Index 48.84 mL/m2 M: 34 - 74 SV Index 26.86 mL/m2 LV Vol Biplane MOD 118.1 mL FS 21.00 % M-Mode TAPSE 1.89 cm (M/F) >1.7 LV Diastology MV E' medial 0.067 (>0.07 m/s) E/A Ratio 1.4 LV E/e MED 7.50 (<14) MV E Vmax 0.50 (0.4-1.3 m/s) MV E' lateral 0.051 (>0.1 m/s) MV A Vmax 0.35 (0.4-1.3 m/s) LV E/e LAT 9.95 (<14) MV E/A Ratio 1.31 MV E/E' medial 7.54 MV E/E' lateral 9.97 Aortic Valve LVOT Area 3.76 cm2 AoV Area Vmax 3.43 cm2 LVOT Vmax 0.84 m/s AoV Area/ BSA (Vmax) 1.84 cm2/m2 LVOT Mean Nikunj. 0.56 m/s OSORIO Mean Nikunj. 2.91 cm2 LVOT Peak Grad 2.8 mmHg OSORIO Mean Nikunj. Index 1.56 cm2/m2 LVOT Mean Grad 1.4 mmHg LVOT VTI 0.166 m LVOT Diam s 2.15 cm AoV Vmax 0.92 m/s Velocity Ratio 0.91 AoV Mean Nikunj. 0.72 m/s AoV Peak Grad 3.4 mmHg LVOT SV 62.51 mL AoV Mean Grad 2.2 mmHg AoV VTI 0.183 m AoV Area VTI 3.42 cm2 AoV Area/ BSA (VTI) 1.84 cm/m2 Mitral Valve MV DT 232 (160-240 msec) MV PHT 67 msec MV Area PHT 3.27 cm2 MV VTI 0.259 m MV Area VTI 2.41 (4.0-6.0 cm2) Pulmonary Valve PV Vmax 0.81 (0.5-1.5 m/s) RVOT Peak Gr. 1.26 mmHg PV Peak Grad 2.6 mmHg RVOT Mean Gr. 0.60 mmHg PV Mean Grad 1.0 mmHg RVOT VTI 0.131 m PV VTI 0.162 m RVOT Vmax 0.56 m/s Tricuspid Valve TR Peak Grad 20.0 mmHg TR Vmax 2.24 m/s RA Pressure 3.00 mmHg RVSP (TR) 23.1 mmHg
[2022-01-28] MEDS: LORazepam 1 MG TAB PO/SL ×3 (00:17→20:25)
[2022-01-28] MEDS: chlordiazePOXIDE 25 MG CAP 100 MG PO (00:17)
[2022-01-28] MEDS: Thiamine 100 MG TAB PO (07:51)
[2022-01-28] MEDS: Docusate Sodium 100 MG CAP PO ×2 (07:51→20:25)
[2022-01-28] MEDS: Methadone Liquid 10 MG/ML 130 MG PO (07:51)
[2022-01-28] MEDS: Famotidine 20 MG TAB PO ×2 (07:51→20:25)
[2022-01-28] MEDS: FLUoxetine 20 MG CAP 40 MG PO (07:51)
[2022-01-28] MEDS: cloNIDine 0.1 MG TAB 0.2 MG PO ×2 (07:51→20:26)
[2022-01-28] MEDS: Multivitamin TAB 1 TAB PO (07:52)
[2022-01-28] MEDS: chlordiazePOXIDE 25 MG CAP 50 MG PO ×3 (07:52→20:25)
[2022-01-28] MEDS: Folic Acid 1 MG TAB PO (07:52)
[2022-01-28] MEDS: Lidocaine 2% Viscous 15 ML CUP PO ×2 (08:28→20:24)
[2022-01-28] MEDS: Enoxaparin 80 MG/0.8 ML SYR 70 MG SC ×2 (08:59→22:00)
[2022-01-28 10:26] LABS: Abs Immature Grans 0.01 10^3/uL (0.0-0.06); Absolute Basophil Count 0.04 10^3/uL (0.0-0.2); Absolute Eosinophil Count 0.17 10^3/uL (0.0-0.7); Absolute Lymphocyte Count 1.82 10^3/uL (1.2-3.4); Absolute Monocyte Count 0.55 10^3/uL (0.1-0.8); Absolute Neutrophil Count 2.94 10^3/uL (1.2-6.7); Basophils % 0.7; Eosinophils % 3.1; HCT 41.7 % (40.0-50.0); HGB 13.9 g/dL (13.5-17.5); Immature Grans % 0.2; Lymphocytes % 32.9; MCH 33.5 pg (27.0-33.0); MCHC 33.3 % (32.0-36.0); MCV 100.5 fL (80-95); MPV 9.5 fL (8.0-11.0); Monocytes % 9.9; Neutrophils % 53.2; Nucleated RBC 0 %; Platelet Count 168 10^3/uL (130-400); RBC 4.15 10^6/uL (4.36-5.78); RDW 12.6 % (11.8-14.1); RDW-SD 47.4 fL; WBC 5.53 10^3/uL (4.4-10.8)
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
[2022-01-28 10:56] LABS: D-Dimer 760 ng/mlFEU (<500)
[2022-01-28 11:10] LABS: ALT 102 U/L (16-63); AST 58 U/L (15-37); Albumin 3.2 g/dL (3.4-5.0); Alkaline Phosphatase 97 U/L (46-116); BUN 14 mg/dL (7-18); Bilirubin, Total 0.3 mg/dL (0.2-1.0); CREATININE 0.8 mg/dL (0.70-1.30); Calcium 8.9 mg/dL (8.5-10.1); Chloride 104 mmol/L (98-107); Ferritin 300 ng/mL (26-388); Glucose 139 mg/dL (74-106); Potassium 3.9 mmol/L (3.5-5.1); Sodium 140 mmol/L (136-145); Total Protein 6.4 g/dL (6.4-8.2)
--- NOTE | 2022-01-28 13:09 | CMPROGNOTE_ITS ---
- If Service Date Differs Date of service: 01/28/22 Time of Service: 13:09 Care Management Progress Note S/O: Dangelo is currently on Covid precautions, therefore CM did not meet with him today. Per report, he is not yet medically cleared for evaluation from [facility]. His CIWA scores remain low, a 4 to 5. He met with Dr. Gonzalez today, who evaluated him for psychotic symptoms of alcohol dependence. He made medication recommendations. Dangelo is on suicide precautions, and per RN, he has expressed thoughts of suicide, without intent. He has reported auditory hallucinations as well. CM will discuss his case with [facility] once he is medically cleared. CM will continue to follow. A: Dangelo is a 41 year old male admitted to [facility] on 01/25/22 with alcohol withdrawal, elevated trop, SI. P: Dangelo will be evaluated by [facility] once he is medically cleared to determine his discharge plan. He will return home vs seek voluntary inpatient psychiatric treatment. He will be connected to the pitching coach as well. He will follow up with his discharge plan of care, and will likely transport via [facility]. CM will c ontinue to follow.
--- NOTE | 2022-01-28 16:09 | PHA.REVIEW ---
Pharmacy Admission Review - Admission Clinical Review (Last Reviewed 01/25/22 @ 20:44 by Gabo Logan) COVID (Acute) Elevated troponin (Acute) Depression with suicidal ideation (Acute) Methadone dependence (Acute 04/01/18) Alcohol abuse with withdrawal (Acute) No Known Allergies Allergy (Verified 01/25/22 15:17) Resuscitation Status Full Code Height 5 ft 8 in Weight 72.6 kg Alcohol w/drawl, suicidal ideation, Trop + - Comments Comments/Follow Ups: Covid positive but not reason for admission, therefore rec'd ([facility]) Bebtelovimab IVP on admission. Librium taper. Methadone dose verified w/[facility] as 130mg daily, CIWA 7 this afternoon, Lorazepam for withdrawl scale. Was previously admitted in Nov 2021. Can go to M/S,Seeking rehab - Renal Dosing Renal Dosing: BUN 14 mg/dL (7-18) 01/28/22 10:05 Creatinine 0.8 mg/dL (0.70-1.30) 01/28/22 10:05 SCr 0.8, CrCl>100ml/min Medications needing adjustments: N/A - Anticoagulation Anticoagulation: Hgb 13.9 g/dL (13.5-17.5) 01/28/22 10:05 Hct 41.7 % (40.0-50.0) 01/28/22 10:05 Plt Count 168 10^3/uL (130-400) 01/28/22 10:05 Creatinine 0.8 mg/dL (0.70-1.30) 01/28/22 10:05 Therapeutic Anticoagulation: Reviewed (Full dose for COVID prevention/guidelines; 70mg Q12h) Medications: Enoxaparin - Opiate Usage Evaluate Pain Scale/Pains Meds: Reviewed (Methadone) Scheduled Bowel Reg ordered if on Opiates?: No - Relevant Labs Sodium 140 mmol/L (136-145) 01/28/22 10:05 Potassium 3.9 mmol/L (3.5-5.1) 01/28/22 10:05 Chloride 104 mmol/L (98-107) 01/28/22 10:05 Phosphorus 4.0 mg/dL (2.6-4.7) 01/25/22 15:55 Magnesium 2.5 mg/dL (1.8-2.4) H 01/26/22 05:55 C-Reactive Protein 1.15 mg/dL (0.0-0.3) H 01/27/22 05:45 Electrolytes, C-Reactive P, ESR: Reviewed - DM Control DM Control: Glucose 139 mg/dL (74-106) H 01/28/22 10:05 Insulin Dosing: N/A - Heart Failure/DE Heart Failure/DE: Troponin I < 50 ng/L (<or=60) 01/26/22 05:55 NT-Pro-B Natriuret Pep 114 pg/mL (<300) 01/25/22 19:30 Positive troponin, elevated D-dimer EF%, DANISH's, B-Blockers, Diuretics: Reviewed (Echo today shows EF 45%, some periods of Bradycardia) - BP Control BP Control: Blood Pressure 127/88 Blood Pressure 129/88 Blood Pressure 121/88 Blood Pressure 113/74 Clonidine If elevated: Reviewed - Qtc Review If Elevated: Reviewed (QTC 490) - Home Meds Home Med List reviewed: Reviewed (Kary-held intentionally) - Current meds Current Medication Order Review: Reviewed (Librium taper, currently at 50mg po TID, just starting Zyprexa, has used 4mg Lorazepam the last 24hrs for CIWA)
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
--- NOTE | 2022-01-28 18:12 | PDOC.CMSAFE ---
- If Service Date Differs Date of service: 01/28/22 Time of Service: 18:12 Care Management Safety Plan Status: Interim - Reason for Wait Reason for Wait: Medical Clearance CM will assess patient after patient has been medically cleared and assessed by screener. If screener deems patient meets criteria for psychiatric stabilization CM will facilitate interdepartmental huddle with [facility] screener for safety planning considerations and meet with patient to review [facility] policy and safety plan, establish individual wishes for treatment and maintain patient rights. In the interim; please note safety plan below to guide patient care while awaiting further assessment in the ED. SAFETY PLAN: 1. Will remain on suicide precautions and in paper clothes. 2. Will remain in room under direct supervision of one-on-one staff at all times provided by JAYDEN, LEAD COOK automatic fancy machine operator. 3. May have paper cups, plates, finger foods as well as a cardboard spoon with which to eat meals. 4. Follow [facility] Management of the Admitted Behavioral Health Patient policy. 5. Personal care: May shower with supervision at nursing discretion. 6. Bathroom privileges: Available in room without limitation on Med/Surg. 6. No personal belongings at this time; per nursing discretion. 7. No visitors at this time. 8. Phone contact limited to legal contact at this time, using hospital phone. 9. Activities: Music tablet per nursing discretion. Television and remote available at nursing discretion. 10. Due to VOLUNTARY status, if patient wishes to leave [facility], staff will contact [facility] Crisis Screener ([phone]) and On-Call Cow Trimmer ([phone]) as soon as possible. In the event of elopement, notify [facility] Police ([phone]). If deemed appropriate for inpatient psychiatric care, safety plan will be established with patient, and care team, to adhere to patient goals, identify restrictions based on behavioral status, address nutrition, and determine allowed personal belongings, tools for hygiene and personal care. As well plan will determine level of activity including ambulation, level of supervision, visitors, and determine privileges based on level of acuity, behaviors and level of engagement by patient.
[2022-01-28] MEDS: Atorvastatin 20 MG TAB PO (20:25)
[2022-01-28] MEDS: OLANZapine 5 MG TAB PO (20:25)
[2022-01-29] VITALS (9 sets, daily range): BP systolic 90–122; BP diastolic 56–78; PULSE 48–63; RESP 12; TEMP 36.4–36.6; O2SAT 93–98
[2022-01-29] MEDS: cloNIDine 0.1 MG TAB 0.2 MG PO (08:39)
[2022-01-29] MEDS: Methadone Liquid 10 MG/ML 130 MG PO (08:39)
[2022-01-29] MEDS: chlordiazePOXIDE 25 MG CAP 50 MG PO ×2 (08:39→15:51)
[2022-01-29] MEDS: FLUoxetine 20 MG CAP 40 MG PO (08:40)
[2022-01-29] MEDS: Multivitamin TAB 1 TAB PO (08:40)
[2022-01-29] MEDS: Famotidine 20 MG TAB PO (08:40)
[2022-01-29] MEDS: Thiamine 100 MG TAB PO (08:40)
[2022-01-29] MEDS: Folic Acid 1 MG TAB PO (08:40)
[2022-01-29] MEDS: OLANZapine 5 MG TAB PO (08:40)
[2022-01-29] MEDS: Enoxaparin 80 MG/0.8 ML SYR 70 MG SC ×2 (08:42→21:09)
--- NOTE | 2022-01-29 08:52 | W.NUTRFU ---
Date of service: 01/29/22 Time of Service: 08:52 Nutrition Note NOTE: 41 year old male admitted for alcohol withdrawl with elevated troponins and covid +. Following regular meal plan with adequate intake. Weight wnl and stable. Not considered at nutritional risk at this time. Time Spent in Nutritional Counseling and Treatment: 0
--- NOTE | 2022-01-29 10:04 | NUR.NOTE ---
Patient rang call ariel, this justowriter operator went to the door and asked what he needed. He stated, I wasn't 100% honest with the nurse. Last night I saw balloons and I see one right now in the corner, they have faces on them. This is embarrassing. I let the patient know that it was ok, I appreciated his honesty and that I will make note of what he is seeing. Nursing Note:
--- NOTE | 2022-01-29 10:12 | NUR.NOTE ---
Robbie rang call george and stated, I'm not crazy. It's just from the withdrawing. I reassured the patient that I understood and we were emily help him through these tough times. RN notified. Nursing Note:
--- NOTE | 2022-01-29 12:06 | PDOC.CMPRO ---
- If Service Date Differs Date of service: 01/29/22 Time of Service: 12:06 Care Management Progress Note S/O: Dangelo remains on Covid 19 precautions, therefore CM is not able to meet with him today. He has not yet been medically cleared, and today scored an 11 on CIWA, per RN. He has been having auditory hallucinations, and was seen by Dr. Gonzalez yesterday, who made medication recommendations. asked [facility] when referrals would be able to be sent for Dangelo, due to his Covid status, and they reported that referrals can be sent after 5 days, if asymptomatic. Once Dangelo is medically cleared, CM will coordinate his mental health screening through [facility] to determine his discharge plan. CM will continue to follow. A: Dangelo is a 41 year old male admitted to [facility] on 01/25/22 with alcohol withdrawal, elevated trop, SI. P: Dangelo will be evaluated by [facility] once he is medically cleared to determine his discharge plan. He will return home vs seek voluntary inpatient psychiatric treatment. He will be connected to the coach tour driver as well. He will follow up with his discharge plan of care, and will likely transport via [facility]. CM will continue to follow.
[2022-01-29] MEDS: LORazepam 1 MG TAB PO/SL ×2 (12:22→20:45)
[2022-01-29] MEDS: Lidocaine 2% Viscous 15 ML CUP PO ×2 (12:24→20:45)
--- NOTE | 2022-01-29 12:29 | PDOC.CMSAFE ---
- If Service Date Differs Date of service: 01/29/22 Time of Service: 12:29 Care Management Safety Plan Status: Voluntary - Reason for Wait Reason for Wait: Medical Clearance CM will assess patient after patient has been medically cleared and assessed by screener. If screener deems patient meets criteria for psychiatric stabilization CM will facilitate interdepartmental huddle with [facility] screener for safety planning considerations and meet with patient to review [facility] policy and safety plan, establish individual wishes for treatment and maintain patient rights. In the interim; please note safety plan below to guide patient care while awaiting further assessment in the ED. SAFETY PLAN: 1. Will remain on suicide precautions and in paper clothes. 2. Will remain in room under direct supervision of one-on-one staff at all times provided by JAYDEN, DUAL RATE SUPERVISOR railroad track repair supervisor. 3. May have paper cups, plates, finger foods as well as a cardboard spoon with which to eat meals. 4. Follow [facility] Management of the Admitted Behavioral Health Patient policy. 5. Personal care: May shower with supervision at nursing discretion. 6. Bathroom privileges: Available in room without limitation on Med/Surg. 6. No personal belongings at this time; per nursing discretion. 7. No visitors at this time. 8. Phone contact limited to legal contact at this time, using hospital phone. 9. Activities: Music tablet per nursing discretion. Television and remote available at nursing discretion. 10. Due to VOLUNTARY status, if patient wishes to leave [facility], staff will contact [facility] Crisis Screener ([phone]) and On-Call Instructional Consultant ([phone]) as soon as possible. In the event of elopement, notify [facility] Police ([phone]). If deemed appropriate for inpatient psychiatric care, safety plan will be established with patient, and care team, to adhere to patient goals, identify restrictions based on behavioral status, address nutrition, and determine allowed personal belongings, tools for hygiene and personal care. As well plan will determine level of activity including ambulation, level of supervision, visitors, and determine privileges based on level of acuity, behaviors and level of engagement by patient.
--- NOTE | 2022-01-29 14:46 | W.PM.PROGNOT ---
Date of Service Date of service: 01/29/22 Time of Service: 14:46 Assessment and Plan Assessment and plan (1) Alcohol abuse with withdrawal: Status: Acute Assessment and plan: cont. librium in tapering doses. 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 Gonzalez, we will increase his olanzapine to 20 mg nightly (or he can go on 10 mg bid however, Dangelo seemed very difficult to awake this morning so I think giving his Zyprexa earlier around 8 pm would be better) (3) COVID: Status: Acute Assessment and plan: patient had MAB on admission (4) Elevated troponin: Status: Acute Assessment and plan: stress induced troponin elevation now resolved. echo demonstrated mild global LV hypokinesis w/ 45%. He should have stress MPI to rule out ischemic heart disease however this does not need to be done while inpatient. He has had no CP since admission. I will put him on atorvastatin and ASA. (5) Depression with suicidal ideation: Status: Acute Assessment and plan: continue fluoxetine; treat his acute paranoia w/ the Zyprexa; patient needs clearance from [facility] before discharge to assess his suicidality (6) Anxiety: Status: Acute Assessment and plan: as above (7) Methadone dependence: Status: Acute Assessment and plan: cont. home methadone dose Subjective Subjective Interval history since last seen: Patient had a good night last night and slept well after receiving olanzapine however he is complaining of visual hallucinations which she sees balloons with faces floating around the room however this actually started prior to starting the olanzapine. He also still has auditory hallucinations which hears whispering coming from the left side of the room but he cannot discern what this voices are saying. Otherwise he seems to be alert and oriented. He seems to be asking for his Ativan even prior to the nurse performing CIWA scoring. I think he is getting to the point in his alcohol withdrawal where he really does not need as much benzodiazepines and is asking for it for the sedating effect. I decreased his chlordiazepoxide to 25 mg 3 times daily. He is scheduled to meet with Dr. Gonzalez on a telepsychiatric visit this afternoon. Patient is now 4 days into his acute alcohol withdrawal treatment. As for his COVID-19 status he was given monoclonal antibodies on admission but remains infectious for up to 10 days. Exam Narrative Exam Narrative: Alert and oriented not tremulous and not diaphoretic. Lungs are clear Heart is regular rate and rhythm Abdomen soft and nontender Psychiatric still having auditory and visual hallucinations although he seems to recognize that the visual hallucinations are not real but he seems convinced that the voices are real but he cannot make out what they are saying. Objective Last Vital Signs Temp 36.4 C L 01/29/22 09:29 Pulse 48 L 01/29/22 12:17 Resp 12 01/29/22 04:00 BP 98/56 L 01/29/22 12:17 Pulse Ox 93 01/29/22 13:06 PAWSS Have you Been Recently Intoxicated or Drunk Within the Last 30 days?: Yes Have you Ever Experienced Previous Episodes of Alcohol Withdrawal?: Yes Have you ever Experienced Withdrawal Seizures?: Yes Have you ever Experienced Delirium Tremens(DT)s?: Unable to Obtain Have you ever undergone Alcohol Rehabilitation Treatment (i.e, inpt ot outpatient treatment programs)?: Yes Have you ever Experienced Blackouts?: Unable to Obtain Have you ever Combined Alcohol with other Downers within the last 90 days?: No Have you ever Combined Alcohol with any other Substance of Abuse during the last 90 days?: Yes Positive Blood Alcohol level on Presentation? [PCS.BAL]: Yes Evidence of Increased Autonomic Activity (i.e. HR>120, tremor, sweating, agitation, nausea)?: Yes Result: 8
--- NOTE | 2022-01-29 16:44 | W.PSYCHFU ---
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 Reports good restful sleep overnight. He continues to score on CIWA and receive both scheduled librium as well as PRN ativan. Paranoia and auditory and visual hallucinations perists. He insists that these experiences are reel, but also attributes them to withdrawal. He has tolerated initiation of olanzapine without adverse effect. I suggest increasing olanzapine daose to 10 mg BID, or if sedstion emerges, 20 mg QHS. He is agreeable to this recommendation. Case is discuss with attending Dr. Logan. Exam Psych Appearance: grossly normal and other (restless, appears in moderate distress and a bit bewildered) Mental Status: other (disoriented to date Monday February 14, 2022)) Mood: other (disoriented to date Monday February 14, 2022)) Affect: irritable affect Attitude: guarded and other (suspicious, paranoid) Thought Process: loose association and perseverating Thought Content: delusions and hallucinations Insight: limited Judgment: limited Objective Medications: Active Inpatient Medications Report Generic Name Dose Route Start Last Admin Trade Name Freq PRN Reason Stop Dose Admin Al Hydrox/Mg Hydrox/Simethicone 30 ml 01/25/22 18:53 Mylanta Suspension 30 Ml Cup PO Q2H PRN PRN Atorvastatin Calcium 20 mg 01/26/22 20:00 01/28/22 20:25 Atorvastatin 20 Mg Tab PO 20 mg QPM BETHANY Administration Chlordiazepoxide HCl 25 mg 01/29/22 20:00 Chlordiazepoxide 25 Mg Cap PO TID BETHANY Clonidine 0.2 mg 01/25/22 22:00 01/29/22 08:39 Clonidine 0.1 Mg Tab PO 0.2 mg BID BETHANY Administration Dimethicone/Zinc Oxide 0 gm 01/25/22 18:47 Jake Protect Cream 142 Gm Tube TP PRN PRN Docusate Sodium 100 mg 01/25/22 18:53 01/28/22 20:25 Docusate Sodium 100 Mg Cap PO 100 mg TID PRN PRN Administration Enoxaparin Sodium 70 mg 01/25/22 22:00 01/29/22 08:42 Enoxaparin 80 Mg/0.8 Ml Syr SC 70 mg Q12H BETHANY Administration Famotidine 20 mg 01/26/22 08:30 01/29/22 08:40 Famotidine 20 Mg Tab PO 20 mg BID BETHANY Administration Fluoxetine HCl 40 mg 01/26/22 08:30 01/29/22 08:40 Fluoxetine 20 Mg Cap PO 40 mg DAILY BETHANY Administration Folic Acid 1 mg 01/26/22 08:30 01/29/22 08:40 Folic Acid 1 Mg Tab PO 1 mg QAM BETHANY Administration IV Miscellaneous Supplies 1 each 01/25/22 15:30 Iv Access IV DIRECTED BETHANY Lidocaine HCl 15 ml 01/26/22 18:55 01/29/22 12:24 Lidocaine 2% Viscous 15 Ml Cup PO 15 ml QID PRN PRN Administration Lidocaine/Diphenhydr/Alum/Mg/Simeth 10 ml 01/29/22 12:00 Magic Mouthwash 119 Ml Btl MM Q4H PRN PRN Lorazepam 1 - 4 mg 01/25/22 18:43 01/29/22 12:22 Lorazepam 1 Mg Tab PO/SL 3 mg DIRECTED PRN Administration Lorazepam 3 - 4 mg 01/25/22 18:43 01/25/22 21:37 Lorazepam 2 Mg/Ml Vial IVP 3 mg DIRECTED PRN Administration Magnesium Hydroxide 30 ml 01/25/22 18:53 Milk Of Magnesia 30 Ml Cup PO DAILY PRN PRN Methadone HCl 130 mg 01/26/22 08:30 01/29/22 08:39 Methadone Liquid 10 Mg/Ml PO 130 mg DAILY BETHANY Administration Multivitamins 1 tab 01/26/22 08:30 01/29/22 08:40 Multivitamin Tab PO 02/01/22 08:31 1 tab QAM BETHANY Administration Nicotine 21 mg 01/25/22 18:53 01/27/22 16:48 Nicotine 21 Mg/24 Hr Patch TD 21 mg DAILY PRN PRN Administration Olanzapine 20 mg 01/29/22 20:00 Olanzapine 5 Mg Tab PO QPM BETHANY Polyethylene Glycol 17 gm 01/25/22 18:53 01/27/22 20:53 Polyethylene Glycol 3350 17 Gm Packet PO 17 gm DAILY PRN PRN Administration Constipation Thiamine HCl 100 mg 01/26/22 08:30 01/29/22 08:40 Thiamine 100 Mg Tab PO 02/01/22 08:31 100 mg QAM BETHANY Administration Discontinued Medications Generic Name Dose Route Start Last Admin Trade Name Freq PRN Reason Stop Dose Admin Acetaminophen 0 mg 01/25/22 18:53 Acetaminophen 325 Mg Tab PO Q4H PRN PRN Acetaminophen 325 - 650 mg 01/25/22 19:08 Acetaminophen 325 Mg Tab PO 01/26/22 23:59 DIRECTED PRN for pain or elevated temperature Albuterol Sulfate 4 puff 01/25/22 19:08 Albuterol Hfa 8 Gm 60 Puff Inh IH 01/26/22 23:59 DIRECTED PRN Chlordiazepoxide HCl 50 mg 01/25/22 16:39 01/25/22 17:18 Chlordiazepoxide 25 Mg Cap PO 01/25/22 16:40 50 mg NOW ONE Administration Chlordiazepoxide HCl 50 mg 01/26/22 00:00 01/26/22 05:52 Chlordiazepoxide 25 Mg Cap PO 50 mg Q6H BETHANY Administration Chlordiazepoxide HCl 100 mg 01/26/22 12:00 01/29/22 11:53 Chlordiazepoxide 25 Mg Cap PO Not Given Q6H BETHANY Chlordiazepoxide HCl 50 mg 01/28/22 08:30 01/29/22 15:51 Chlordiazepoxide 25 Mg Cap PO 25 mg TID BETHANY Administration Dexamethasone 4 mg 01/25/22 19:08 Dexamethasone 4 Mg/Ml Vial IVP 01/26/22 23:59 DIRECTED PRN Diphenhydramine HCl 50 mg 01/25/22 19:08 Diphenhydramine 50 Mg/Ml Vial IVP 01/26/22 23:59 DIRECTED PRN Diphtheria/Pertussis/Tetanus Vacc 0.5 ml 01/25/22 16:00 01/25/22 16:21 Diph,Pertuss(Acell),Tet Vac/Pf 0.5 Ml Vial IM 01/25/22 16:01 0.5 ml .ONCE ONE Administration Epinephrine 0.3 mg 01/25/22 19:08 Epinephrine 0.3 Mg Kit IM 01/26/22 23:59 DIRECTED PRN Famotidine 20 mg 01/25/22 21:25 01/25/22 21:38 Famotidine 20 Mg Tab PO 01/25/22 21:26 20 mg NOW ONE Administration Folic Acid 1 mg 01/26/22 08:30 Folic Acid 1 Mg Tab PO 02/01/22 08:31 QAM BETHANY Folic Acid 1 mg 01/25/22 16:09 01/25/22 16:21 Folic Acid 1 Mg Tab PO 01/25/22 16:10 1 mg NOW STA Administration Sodium Chloride 1,000 mls @ 1,000 mls/hr 01/25/22 16:14 01/25/22 17:25 Saline 1000ml Bag IV 01/25/22 17:13 Infused BOLUS ONE Infusion Potassium Chloride 20 meq in 100 mls @ 50 mls/hr 01/25/22 17:01 01/25/22 19:56 IVPB 01/25/22 19:00 Infused NOW ONE Infusion Sodium Chloride 1,000 mls @ 1,000 mls/hr 01/25/22 17:01 01/25/22 22:10 Saline 1000ml Bag IV 01/25/22 18:00 Infused BOLUS ONE Infusion Sodium Chloride 250 mls @ 30 mls/hr 01/25/22 19:15 01/25/22 19:30 Saline 250ml Bag IV 01/26/22 23:59 30 mls/hr INFUSION BETHANY Administration Lorazepam 2 mg 01/25/22 16:39 01/25/22 17:19 Lorazepam 2 Mg/Ml Vial IVP 01/25/22 16:40 2 mg NOW ONE Administration Miscellaneous Medication 175 mg 01/25/22 22:00 Bebtelovimab 175 Mg/2 Ml Vial IVP TODAY BETHANY Miscellaneous Medication 175 mg 01/26/22 10:00 01/26/22 10:22 Bebtelovimab 175 Mg/2 Ml Vial IVP 01/26/22 16:00 175 mg TODAY@1000 BETHANY Administration Multivitamins 1 tab 01/25/22 16:09 01/25/22 16:21 Multivitamin Tab PO 01/25/22 16:10 1 tab NOW STA Administration Non-Formulary Medication 130 mg 01/26/22 08:30 Methadone PO DAILY BETHANY Olanzapine 5 mg 01/28/22 20:00 01/29/22 08:40 Olanzapine 5 Mg Tab PO 5 mg BID BETHANY Administration Potassium Chloride 40 meq 01/25/22 17:01 01/25/22 17:42 Potassium Chloride 20 Meq Tabcr PO 01/25/22 17:02 40 meq NOW ONE Administration Sodium Chloride 0 ml 01/25/22 15:24 Normal Saline Flush 10 Ml Syr IVP PRN PRN Sodium Chloride 0 ml 01/25/22 19:08 01/27/22 16:46 Normal Saline Flush 10 Ml Syr IVP 01/26/22 23:59 10 ml PRN PRN Administration Thiamine HCl 100 mg 01/26/22 08:30 Thiamine 100 Mg Tab PO 02/01/22 08:31 QAM BETHANY Thiamine HCl 100 mg 01/25/22 16:09 01/25/22 16:21 Thiamine 100 Mg Tab PO 01/25/22 16:10 100 mg NOW STA Administration Vitals: Vital Signs - 24 hr 01/29/22 04:00 01/29/22 09:19 01/29/22 09:29 Temperature 36.6 C 36.4 C L Pulse 63 50 L Respiratory Rate 12 Blood Pressure 122/68 118/78 Pulse Oximetry 98 98 01/29/22 12:17 01/29/22 13:06 01/29/22 15:49 Temperature Pulse 48 L 52 L Respiratory Rate Blood Pressure 98/56 L 90/56 L Pulse Oximetry 96 93 94 Consent/Time spent Consent/Time Spent The patient has consented to a virtual communication with the provider: Yes Visit performed via: Telehealth Time Spent (minutes): 30
[2022-01-29] MEDS: chlordiazePOXIDE 25 MG CAP PO (20:42)
[2022-01-29] MEDS: OLANZapine 5 MG TAB 20 MG PO (20:44)
[2022-01-29] MEDS: Docusate Sodium 100 MG CAP PO (20:45)
[2022-01-29] MEDS: Atorvastatin 20 MG TAB PO (20:45)
[2022-01-30] VITALS (14 sets, daily range): BP systolic 97–118; BP diastolic 57–68; PULSE 54–66; RESP 14–20; TEMP 36.2–37; O2SAT 92–97
[2022-01-30] MEDS: LORazepam 1 MG TAB PO/SL (08:31)
[2022-01-30] MEDS: chlordiazePOXIDE 25 MG CAP PO (08:31)
[2022-01-30] MEDS: Thiamine 100 MG TAB PO (08:32)
[2022-01-30] MEDS: FLUoxetine 20 MG CAP 40 MG PO (08:32)
[2022-01-30] MEDS: Multivitamin TAB 1 TAB PO (08:33)
[2022-01-30] MEDS: Folic Acid 1 MG TAB PO (08:34)
[2022-01-30] MEDS: Aspirin E.C. 81 MG TABEC PO ×2 (08:34→22:16)
[2022-01-30] MEDS: Methadone Liquid 10 MG/ML 130 MG PO (08:34)
[2022-01-30] MEDS: Lidocaine 2% Viscous 15 ML CUP PO (08:34)
[2022-01-30] MEDS: Famotidine 20 MG TAB PO ×2 (08:37→22:15)
[2022-01-30] MEDS: cloNIDine 0.1 MG TAB 0.2 MG PO (08:37)
[2022-01-30] MEDS: Acetaminophen 325 MG TAB 650 MG PO (08:40)
[2022-01-30 09:17] LABS: Abs Immature Grans 0.02 10^3/uL (0.0-0.06); Absolute Basophil Count 0.02 10^3/uL (0.0-0.2); Absolute Eosinophil Count 0.22 10^3/uL (0.0-0.7); Absolute Lymphocyte Count 2.75 10^3/uL (1.2-3.4); Absolute Monocyte Count 1.04 10^3/uL (0.1-0.8); Basophils % 0.2; Eosinophils % 2.6; HCT 44.1 % (40.0-50.0); HGB 14.5 g/dL (13.5-17.5); Immature Grans % 0.2; Lymphocytes % 32.9; MCH 33.4 pg (27.0-33.0); MCHC 32.9 % (32.0-36.0); MCV 101.6 fL (80-95); MPV 9.4 fL (8.0-11.0); Monocytes % 12.5; Neutrophils % 51.6; Nucleated RBC 0 %; Platelet Count 194 10^3/uL (130-400); RBC 4.34 10^6/uL (4.36-5.78); RDW 12.8 % (11.8-14.1); RDW-SD 48.2 fL; WBC 8.35 10^3/uL (4.4-10.8)
[2022-01-30 09:24] LABS: Anion Gap 4.9 mmol/L (3-11); BUN 16 mg/dL (7-18); CO2 30.1 mmol/L (21.0-32.0); Calcium 9.1 mg/dL (8.5-10.1); Chloride 107 mmol/L (98-107); Glucose 105 mg/dL (74-106); Magnesium 2.1 mg/dL (1.8-2.4); Potassium 4.1 mmol/L (3.5-5.1); Sodium 142 mmol/L (136-145)
[2022-01-30] MEDS: Enoxaparin 80 MG/0.8 ML SYR 70 MG SC ×2 (10:37→22:17)
[2022-01-30] MEDS: Docusate Sodium 100 MG CAP PO ×2 (10:40→22:14)
[2022-01-30] MEDS: Polyethylene Glycol 3350 17 GM PACKET PO (10:41)
--- NOTE | 2022-01-30 11:20 | W.PM.PROGNOT ---
Date of Service Date of service: 01/30/22 Time of Service: 11:20 Assessment and Plan Assessment and plan (1) Alcohol abuse with withdrawal: Status: Acute Assessment and plan: Continue librium taper with prn ativan per CIWA scale. Continue zyprexa at night. Appreciate Dr Gonzalez's assistance. 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 (3) COVID: Status: Acute Assessment and plan: Asymptomatic. S/p MAB on presentation. Continue to monitor. Remains on precautions. (4) Elevated troponin: Status: Acute Assessment and plan: DDx: Type 2 demand ischemia vs ?rhabdo/sz prior to admission (does have a h/o EtOh withdrawal seizure). Agree that he will need outpatient stress testing given global hypokinesis/reduced LVEF (45%) on echo. Continue atorvastatin and ASA. Check CPK. (5) Depression with suicidal ideation: Status: Acute Assessment and plan: continue fluoxetine and Zyprexa. Will need to be evaluated by mental health when more cognitively clear given suicidality. Continue CPSO. (6) Anxiety: Status: Acute Assessment and plan: as above (7) Methadone dependence: Status: Acute Assessment and plan: Continue methadone (8) DVT prophylaxis: Status: Acute Assessment and plan: On therapeutic lovenox (9) Discharge planning issues: Status: Acute Assessment and plan: Full code Continues to require hospitalization Subjective Subjective Interval history since last seen: Dangelo states that he just woke up. He states that they are here, when asked if he is hallucinating images or voices that are not there. He denies dizziness, chest pain, shortness of breath. Endorses a little bit of nausea. Denies abdominal pain. He is constipated and states that it has been 5 days since his last BM. He has not required oxygen. He has not had a cough. CIWA score was 7 this am. Exam Narrative Exam Narrative: General: Lethargic but arousable male, A&Ox2, NAD, not tremulous HEENT: EOMI, MMM Heart: RRR, no m/r/g Lungs: CTAB Abdomen: soft, nontender, nondistended Extremities: no e/c/c BLEs. Objective Last Vital Signs Temp 37 C 01/30/22 06:00 Pulse 66 01/30/22 08:52 Resp 14 01/30/22 06:00 BP 109/66 01/30/22 08:52 Pulse Ox 94 01/30/22 08:52 Laboratory Results - last 24 hr 01/30/22 01/30/22 08:55 08:55 WBC 8.35 RBC 4.34 L Hgb 14.5 Hct 44.1 MCV 101.6 H MCH 33.4 H MCHC 32.9 RDW 12.8 Plt Count 194 MPV 9.4 Immature Gran % 0.2 Neutrophils % 51.6 Lymphocytes % 32.9 Monocytes % 12.5 Eosinophils % 2.6 Basophils % 0.2 Nucleated RBC % 0 Absolute Neutrophils 4.30 Absolute Lymphocytes 2.75 Absolute Monocytes 1.04 H Absolute Eosinophils 0.22 Absolute Basophils 0.02 Sodium 142 Potassium 4.1 Chloride 107 Carbon Dioxide 30.1 Anion Gap 4.9 BUN 16 Creatinine 1.0 Estimated GFR/1.73 m2 >= 60.00 Glucose 105 Calcium 9.1 Magnesium 2.1 PAWSS Have you Been Recently Intoxicated or Drunk Within the Last 30 days?: Yes Have you Ever Experienced Previous Episodes of Alcohol Withdrawal?: Yes Have you ever Experienced Withdrawal Seizures?: Yes Have you ever Experienced Delirium Tremens(DT)s?: Unable to Obtain Have you ever undergone Alcohol Rehabilitation Treatment (i.e, inpt ot outpatient treatment programs)?: Yes Have you ever Experienced Blackouts?: Unable to Obtain Have you ever Combined Alcohol with other Downers within the last 90 days?: No Have you ever Combined Alcohol with any other Substance of Abuse during the last 90 days?: Yes Positive Blood Alcohol level on Presentation? [PCS.BAL]: Yes Evidence of Increased Autonomic Activity (i.e. HR>120, tremor, sweating, agitation, nausea)?: Yes Result: 8
[2022-01-30 12:01] LABS: Lab Add On Test DONE
[2022-01-30] MEDS: Bisacodyl 5 MG TABEC PO (12:17)
[2022-01-30 12:22] LABS: Creatine Kinase 68 U/L (39-308)
[2022-01-30] MEDS: Lactated Ringers 500 ML 250 ML IV (14:29)
[2022-01-30] MEDS: Normal Saline Flush 10 ML SYR IVP ×2 (14:32→22:17)
--- NOTE | 2022-01-30 15:57 | CMSP_ITS ---
- If Service Date Differs Date of service: 01/30/22 Time of Service: 15:57 Care Management Safety Plan Status: Voluntary - Reason for Wait Reason for Wait: Medical Clearance CM will assess patient after patient has been medically cleared and assessed by screener. If screener deems patient meets criteria for psychiatric stabilization CM will facilitate interdepartmental huddle with [facility] screener for safety planning considerations and meet with patient to review [facility] policy and safety plan, establish individual wishes for treatment and maintain patient rights. In the interim; please note safety plan below to guide patient care while awaiting further assessment in the ED. SAFETY PLAN: 1. Will remain on suicide precautions and in paper clothes. 2. Will remain in room under direct supervision of one-on-one staff at all times provided by JAYDEN, UNIT SECRETARY community mental health worker. 3. May have paper cups, plates, finger foods as well as a cardboard spoon with which to eat meals. 4. Follow [facility] Management of the Admitted Behavioral Health Patient policy. 5. Personal care: May shower with supervision at nursing discretion. 6. Bathroom privileges: Available in room without limitation on Med/Surg. 6. No personal belongings at this time; per nursing discretion. 7. No visitors at this time. 8. Phone contact limited to legal contact at this time, using hospital phone. 9. Activities: Music tablet per nursing discretion. Television and remote available at nursing discretion. 10. Due to VOLUNTARY status, if patient wishes to leave [facility], staff will contact [facility] Crisis Screener ([phone]) and On-Call Clearance Diver ([phone]) as soon as possible. In the event of elopement, notify [facility] Police ([phone]). If deemed appropriate for inpatient psychiatric care, safety plan will be established with patient, and care team, to adhere to patient goals, identify restrictions based on behavioral status, address nutrition, and determine allowed personal belongings, tools for hygiene and personal care. As well plan will determine level of activity including ambulation, level of supervision, visitors, and determine privileges based on level of acuity, behaviors and level of engagement by patient.
--- NOTE | 2022-01-30 15:58 | PDOC.CMPRO ---
- If Service Date Differs Date of service: 01/30/22 Time of Service: 15:58 Care Management Progress Note S/O: Dangelo remains on Covid 19 precautions, therefore CM did not meet with him. Per report, he continues to score on CIWA. He was seen by Dr. Gonzalez again today, who made medication recommendations. He reported that if his hallucinations continue, his librium taper may need to be slowed. He has not yet been medically cleared. Once he is cleared by MD, he will be evaluated by [facility]. CM will continue to follow. A: Dangelo is a 41 year old male admitted to [facility] on 01/25/22 with alcohol withdrawal, elevated trop, SI. P: Dangelo will be evaluated by [facility] once he is medically cleared to determine his discharge plan. He will return home vs seek voluntary inpatient psychiatric treatment. He will be connected to the recovery agent as well. He will follow up with his discharge plan of care, and will likely transport via [facility]. CM will continue to follow.
[2022-01-30] MEDS: OLANZapine 5 MG TAB 20 MG PO (22:15)
[2022-01-30] MEDS: Atorvastatin 20 MG TAB PO (22:15)
[2022-01-30] MEDS: cloNIDine 0.1 MG TAB PO (22:16)
--- NOTE | 2022-01-30 23:54 | NUR.NOTE ---
call from Zoila, bhupinder notifed that Zoila and pt's parents Andrey and Pat asked after him. Pt update HIPAA to include Father. Update given to father over phone. Zoila left # for pt to call her when he is able [phone] Note:
[2022-01-31] VITALS (25 sets, daily range): BP systolic 104–124; BP diastolic 60–79; PULSE 60–78; RESP 3–19; TEMP 37–37.6; O2SAT 87–98
--- NOTE | 2022-01-31 05:14 | NUR.NOTE ---
Nursing Note: Per report pt has been 100% stable, slept from [id number], woke up had meds, and washed up and then went back to sleep. Before going back to sleep Assessment and vitals per report were benign and stable. Pt has been asleep since RN came on shift at 0300. Has been relaxed and breathing calmly. Pt is MedSurg status and with being stable RN is allowing Pt to rest and sleep and not be awoken and be anxious for a few hours.
[2022-01-31 06:40] LABS: Abs Immature Grans 0.02 10^3/uL (0.0-0.06); Absolute Basophil Count 0.03 10^3/uL (0.0-0.2); Absolute Eosinophil Count 0.17 10^3/uL (0.0-0.7); Absolute Lymphocyte Count 2.83 10^3/uL (1.2-3.4); Absolute Monocyte Count 0.87 10^3/uL (0.1-0.8); Absolute Neutrophil Count 5.07 10^3/uL (1.2-6.7); Basophils % 0.3; Eosinophils % 1.9; HCT 42.5 % (40.0-50.0); HGB 13.9 g/dL (13.5-17.5); Immature Grans % 0.2; Lymphocytes % 31.5; MCH 32.7 pg (27.0-33.0); MCHC 32.7 % (32.0-36.0); MPV 9.5 fL (8.0-11.0); Monocytes % 9.7; Neutrophils % 56.4; Nucleated RBC 0 %; Platelet Count 194 10^3/uL (130-400); RBC 4.25 10^6/uL (4.36-5.78); RDW 12.7 % (11.8-14.1); RDW-SD 47.6 fL; WBC 8.99 10^3/uL (4.4-10.8)
[2022-01-31 06:53] LABS: Anion Gap 3.9 mmol/L (3-11); BUN 18 mg/dL (7-18); CO2 31.1 mmol/L (21.0-32.0); Calcium 9.1 mg/dL (8.5-10.1); Chloride 106 mmol/L (98-107); Glucose 112 mg/dL (74-106); Magnesium 2.1 mg/dL (1.8-2.4); Potassium 4.1 mmol/L (3.5-5.1); Sodium 141 mmol/L (136-145)
--- NOTE | 2022-01-31 08:44 | NUR.NOTE ---
Nursing Note:Patient is currently resting quietly/comfortably with eyes closed while resting in supine position in bed. This nurse is not waking patient for assessment at this time. This nurse discussed this plan with Dr. Gonzales--she is in agreement with not waking patient and waiting until he is awake for assessment and medications.
--- NOTE | 2022-01-31 08:47 | PDOC.CMSAFE ---
- If Service Date Differs Date of service: 01/31/22 Time of Service: 08:48 Care Management Safety Plan Status: Voluntary - Reason for Wait Reason for Wait: Medical Clearance CM will assess patient after patient has been medically cleared and assessed by screener. If screener deems patient meets criteria for psychiatric stabilization CM will facilitate interdepartmental huddle with [facility] screener for safety planning considerations and meet with patient to review [facility] policy and safety plan, establish individual wishes for treatment and maintain patient rights. In the interim; please note safety plan below to guide patient care while awaiting further assessment in the ED. SAFETY PLAN: 1. Will remain on suicide precautions and in paper clothes. 2. Will remain in room under direct supervision of one-on-one staff at all times provided by JAYDEN, DRESSMAKER HELPER drop hammer pile driver operator. 3. May have paper cups, plates, finger foods as well as a cardboard spoon with which to eat meals. 4. Follow [facility] Management of the Admitted Behavioral Health Patient policy. 5. Personal care: May shower with supervision at nursing discretion. 6. Bathroom privileges: Available in room without limitation on Med/Surg. 6. No personal belongings at this time; per nursing discretion. 7. No visitors at this time. 8. Phone contact limited to legal contact at this time, using hospital phone. 9. Activities: Music tablet per nursing discretion. Television and remote available at nursing discretion. 10. Due to VOLUNTARY status, if patient wishes to leave [facility], staff will contact [facility] Crisis Screener ([phone]) and On-Call Voice Professor ([phone]) as soon as possible. In the event of elopement, notify [facility] Police ([phone]). If deemed appropriate for inpatient psychiatric care, safety plan will be established with patient, and care team, to adhere to patient goals, identify restrictions based on behavioral status, address nutrition, and determine allowed personal belongings, tools for hygiene and personal care. As well plan will determine level of activity including ambulation, level of supervision, visitors, and determine privileges based on level of acuity, behaviors and level of engagement by patient.
--- NOTE | 2022-01-31 08:48 | PDOC.CMPRO ---
- If Service Date Differs Date of service: 01/31/22 Time of Service: 08:48 Care Management Progress Note S/O: Dangelo continues to score on CIWA protocol. He was seen by Dr. Gonzalez yesterday and his medications were adjusted based on recommendations. Dangelo remains on Covid Precautions. Anticipate, he will be retested today, with added cycling time order to determine if precautions can be d/c'd. Dangelo requested to leave AMA this morning. CM notified Crystal from [facility] and a stat screening was initiated. Following the screening, Dangelo agreed to remain inpatient. Dr. Gonzales upgraded his inpatient status to ICU, for close monitoring. A: Dangelo is a 41 year old male admitted to [facility] on 01/25/22 with alcohol withdrawal, elevated trop, SI. P: Dangelo will be evaluated by [facility] once he is medically cleared to determine his discharge plan. He will return home vs seek voluntary inpatient psychiatric treatment. He will be connected to the manager disaster recovery as well. He will follow up with his discharge plan of care, and will likely transport via [facility]. CM will continue to follow. - Status Status: Voluntary - Reason for Wait Reason for Wait: Inpatient Admission
[2022-01-31] MEDS: Methadone Liquid 10 MG/ML 130 MG PO (09:29)
[2022-01-31] MEDS: Polyethylene Glycol 3350 17 GM PACKET PO (09:30)
[2022-01-31] MEDS: Enoxaparin 80 MG/0.8 ML SYR 70 MG SC ×2 (09:30→21:27)
[2022-01-31] MEDS: cloNIDine 0.1 MG TAB PO ×2 (09:31→21:26)
[2022-01-31] MEDS: Aspirin E.C. 81 MG TABEC PO (09:31)
[2022-01-31] MEDS: Famotidine 20 MG TAB PO ×2 (09:31→21:26)
[2022-01-31] MEDS: Folic Acid 1 MG TAB PO (09:31)
[2022-01-31] MEDS: Thiamine 100 MG TAB PO (09:31)
[2022-01-31] MEDS: Docusate Sodium 100 MG CAP PO ×2 (09:31→21:26)
[2022-01-31] MEDS: FLUoxetine 20 MG CAP 40 MG PO (09:31)
[2022-01-31] MEDS: Multivitamin TAB 1 TAB PO (09:31)
--- NOTE | 2022-01-31 10:06 | NUR.NOTE ---
Nursing Note: This nurse did a nasal Covid test on patient. He did not tolerate procedure well--patient became agitated and pushed this nurse away. Also during this mornings assessment at 0940 Patient stated where is my clothes....I'm getting dressed....I'm going home
--- NOTE | 2022-01-31 10:22 | NUR.NOTE ---
Nursing Note: Patient rang call george, he states he wants his clothes and he is leaving. Dr. Gonzales notified.
[2022-01-31 10:34] LABS: Source Nasal/Nares
--- NOTE | 2022-01-31 10:58 | W.PM.PROGNOT ---
Date of Service Date of service: 01/31/22 Time of Service: 10:58 Assessment and Plan Assessment and plan (1) Alcohol abuse with withdrawal: Status: Acute Assessment and plan: Would d/c librium, continue prn ativan per CIWA scale. Because of an attempt to leave AMA earlier today, would upgrade to the ICU so that he can be monitored closer. Continue zyprexa at night. Appreciate Dr Gonzalez's assistance. 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 (3) COVID: Status: Acute Assessment and plan: Asymptomatic. S/p MAB on presentation. Continue to monitor. Remains on precautions at this time, but we are trying to retest him today to see if we can take him off precautions. He did have COVID within the last 3 months and could have transient shedding of the virus without being infectious. If he is still positive today, I will find out his cycling time to help figure out how much of a transmission risk he is. (4) Elevated troponin: Status: Acute Assessment and plan: DDx: Type 2 demand ischemia vs ?rhabdo/sz prior to admission (does have a h/o EtOh withdrawal seizure). Agree that he will need outpatient stress testing given global hypokinesis/reduced LVEF (45%) on echo. Continue atorvastatin and ASA. Check CPK. (5) Depression with suicidal ideation: Status: Acute Assessment and plan: continue fluoxetine and Zyprexa. Denies SI in screening with mental health today. I will await their verdict. Continue CPSO. (6) Anxiety: Status: Acute Assessment and plan: as above (7) Methadone dependence: Status: Acute Assessment and plan: Continue methadone (8) DVT prophylaxis: Status: Acute Assessment and plan: On therapeutic lovenox (9) Discharge planning issues: Status: Acute Assessment and plan: Full code Continues to require hospitalization Upgrading to ICU level of care for closer monitoring. Subjective Subjective Interval history since last seen: Dangelo did not wake up until about 9 am. Slept well last night. He then stated that he would leave to go home and called his ride. He walked out of the hospital room, despite being on precautions, and attempted to find a bathroom to urinate, thinking that our clean utility room was it. He was directed back into his room and complied, but continued to be anxious/restless in the room. I witnessed his interaction with mental health (on the tablet) which was trying to screen him for whether or not he is safe to leave from the SI/psychiatric stand point. The patient denied SI and HI in that conversation. He expressed that he was interested in getting set up with both [facility] and [facility] (he was [facility]orably discharged from the service and has a hard time getting enrolled into the [facility] system because of the way he was discharged). He states he has everything to live for, including his daughter. He now agrees to stay to have his EtOH withdrawal treated. He requests to smoke and is looking for his cigarettes, we will try nicotrol. Exam Narrative Exam Narrative: General: Restless and anxious male, who appears to be sedated, not at his baseline mental status, A&Ox2, not tremulous, having difficulty getting out of bed, difficulty drinking out of a cup, uncoordinated HEENT: EOMI, MMM Heart: not auscultated Lungs: nonlabored breathing. Abdomen: nondistended Extremities: no e/c/c BLEs, uncoordinated movements, but does not appear stiff. Objective Last Vital Signs Temp 37.6 C H 01/31/22 10:06 Pulse 70 01/31/22 09:51 Resp 16 01/30/22 23:48 BP 114/73 01/31/22 09:51 Pulse Ox 92 01/31/22 10:06 Laboratory Results - last 24 hr 01/30/22 01/30/22 01/31/22 08:55 08:55 06:15 WBC RBC Hgb Hct MCV MCH MCHC RDW Plt Count MPV Immature Gran % Neutrophils % Lymphocytes % Monocytes % Eosinophils % Basophils % Nucleated RBC % Absolute Neutrophils Absolute Lymphocytes Absolute Monocytes Absolute Eosinophils Absolute Basophils Sodium 141 Potassium 4.1 Chloride 106 Carbon Dioxide 31.1 Anion Gap 3.9 BUN 18 Creatinine 1.0 Estimated GFR/1.73 m2 >= 60.00 Glucose 112 H Calcium 9.1 Magnesium 2.1 Creatine Kinase 68 COVID-19 Source Add-On Test Request DONE 01/31/22 01/31/22 06:15 10:00 WBC 8.99 RBC 4.25 L Hgb 13.9 Hct 42.5 MCV 100.0 H MCH 32.7 MCHC 32.7 RDW 12.7 Plt Count 194 MPV 9.5 Immature Gran % 0.2 Neutrophils % 56.4 Lymphocytes % 31.5 Monocytes % 9.7 Eosinophils % 1.9 Basophils % 0.3 Nucleated RBC % 0 Absolute Neutrophils 5.07 Absolute Lymphocytes 2.83 Absolute Monocytes 0.87 H Absolute Eosinophils 0.17 Absolute Basophils 0.03 Sodium Potassium Chloride Carbon Dioxide Anion Gap BUN Creatinine Estimated GFR/1.73 m2 Glucose Calcium Magnesium Creatine Kinase COVID-19 Source Nasal/Nares Add-On Test Request PAWSS Have you Been Recently Intoxicated or Drunk Within the Last 30 days?: Yes Have you Ever Experienced Previous Episodes of Alcohol Withdrawal?: Yes Have you ever Experienced Withdrawal Seizures?: Yes Have you ever Experienced Delirium Tremens(DT)s?: Unable to Obtain Have you ever undergone Alcohol Rehabilitation Treatment (i.e, inpt ot outpatient treatment programs)?: Yes Have you ever Experienced Blackouts?: Unable to Obtain Have you ever Combined Alcohol with other Downers within the last 90 days?: No Have you ever Combined Alcohol with any other Substance of Abuse during the last 90 days?: Yes Positive Blood Alcohol level on Presentation? [PCS.BAL]: Yes Evidence of Increased Autonomic Activity (i.e. HR>120, tremor, sweating, agitation, nausea)?: Yes Result: 8
[2022-01-31] MEDS: Normal Saline Flush 10 ML SYR IVP (11:06)
[2022-01-31] MEDS: LORazepam 2 MG/ML VIAL IVP (11:08)
[2022-01-31 11:13] LABS: COVID-19 PCR Negative (Negative)
[2022-01-31 11:37] LABS: Source Nasal/Nares
[2022-01-31 12:26] LABS: COVID-19 PCR Negative (Negative)
--- NOTE | 2022-01-31 13:02 | NUR.NOTE ---
Nursing Note: At approximately 1015 patient walked out of his room stating he need to use bathroom as he was wondering around the nursing station. He was guided back to his room and reoriented. At approximately 1030 patient was moving about room looking for his cigarettes. At approximately 1045 patient was talking with mental health personnel. This nurse and Dr. Gonzales in room. Patient speech was slurred/unclear and difficult to understand. He was anxious and agitated at the time. He had difficulty paying attention and holding water/coffee cup.
[2022-01-31] MEDS: Atorvastatin 20 MG TAB PO (21:25)
[2022-01-31] MEDS: OLANZapine 10 MG TAB PO (21:26)
[2022-02-01] VITALS (37 sets, daily range): BP systolic 96–116; BP diastolic 56–79; PULSE 48–81; RESP 15–19; TEMP 36–37; O2SAT 84–99
[2022-02-01] MEDS: LORazepam 1 MG TAB PO/SL ×4 (02:47→17:29)
--- NOTE | 2022-02-01 08:47 | CMPROGNOTE_ITS ---
- If Service Date Differs Date of service: 02/01/22 Time of Service: 08:47 Care Management Progress Note S/O: Dangelo requires close monitoring in the ICU. He continues to score on CIWA protocol. He was seen by Dr. Gonzalez evaluated pt and medications were adjusted based on recommendations. Dangelo had 2 negative covid tests yesterday, covid precautions d/c'd. Dangelo will be screened by [facility] and Community Cultural Development Officer when medically cleared. A: Dangelo is a 41 year old male admitted to [facility] on 01/25/22 with alcohol withdrawal, elevated trop, SI. P: Dangelo will be evaluated by [facility] once he is medically cleared to determine his discharge plan. He will return home vs seek voluntary inpatient psychiatric treatment. He will be connected to the polo coach as well. He will follow up with his discharge plan of care, and will likely transport via [facility]. CM will continue to follow. - Status Status: Voluntary - Reason for Wait Reason for Wait: Inpatient Admission
--- NOTE | 2022-02-01 08:54 | CMSP_ITS ---
- If Service Date Differs Date of service: 02/01/22 Time of Service: 08:54 Care Management Safety Plan Status: Voluntary - Reason for Wait Reason for Wait: Inpatient Admission CM will assess patient after patient has been medically cleared and assessed by screener. If screener deems patient meets criteria for psychiatric stabilization CM will facilitate interdepartmental huddle with [facility] screener for safety planning considerations and meet with patient to review [facility] policy and safety plan, establish individual wishes for treatment and maintain patient rights. Dangelo requires close monitoring in the ICU, with 1:1 patient observer. Covid Precautions were d/c'd. Dangelo will be screened by [facility] Clinician when he is medically ready. CM will also reach out to Supervisor Beater Room. SAFETY PLAN: 1. Will remain on suicide precautions and in paper clothes. 2. Will remain in room under direct supervision of one-on-one staff at all times provided by JAYDEN, [employer]PUT[employer]NEY machine feeder floorperson. 3. May have paper cups, plates, finger foods as well as a cardboard spoon with which to eat meals. 4. Follow [facility] Management of the Admitted Behavioral Health Patient policy. 5. Personal care: May shower with supervision at nursing discretion. 6. Bathroom privileges: Available in room without limitation on Med/Surg. 6. No personal belongings at this time; per nursing discretion. 7. No visitors at this time. 8. Phone contact limited to legal contact at this time, using hospital phone. 9. Activities: Music tablet per nursing discretion. Television and remote available at nursing discretion. 10. Due to VOLUNTARY status, if patient wishes to leave [facility], staff will contact [facility] Crisis Screener ([phone]) and On-Call Filler Mixer ([phone]) as soon as possible. In the event of elopement, notify [facility] Police ([phone]). If deemed appropriate for inpatient psychiatric care, safety plan will be established with patient, and care team, to adhere to patient goals, identify r estrictions based on behavioral status, address nutrition, and determine allowed personal belongings, tools for hygiene and personal care. As well plan will determine level of activity including ambulation, level of supervision, visitors, and determine privileges based on level of acuity, behaviors and level of engagement by patient.
[2022-02-01] MEDS: Methadone Liquid 10 MG/ML 130 MG PO (09:09)
[2022-02-01] MEDS: Enoxaparin 80 MG/0.8 ML SYR 70 MG SC (09:10)
[2022-02-01] MEDS: Multivitamin TAB 1 TAB PO (09:11)
[2022-02-01] MEDS: Famotidine 20 MG TAB PO ×2 (09:11→20:39)
[2022-02-01] MEDS: cloNIDine 0.1 MG TAB PO ×2 (09:11→20:39)
[2022-02-01] MEDS: Aspirin E.C. 81 MG TABEC PO (09:11)
[2022-02-01] MEDS: FLUoxetine 20 MG CAP 40 MG PO (09:12)
[2022-02-01] MEDS: Thiamine 100 MG TAB PO (09:12)
[2022-02-01] MEDS: Docusate Sodium 100 MG CAP PO ×2 (09:12→20:39)
[2022-02-01] MEDS: Psyllium PKT 1 EACH PO ×2 (09:13→20:39)
[2022-02-01] MEDS: Folic Acid 1 MG TAB PO (09:18)
[2022-02-01] MEDS: Polyethylene Glycol 3350 17 GM PACKET PO (09:34)
--- NOTE | 2022-02-01 10:58 | IN_ITS ---
Date of service: 02/01/22 Time of Service: 10:58 PT Notes Visit Reasons: Alcohol Withdrawal,Elevated Troponin,Suicidal Idea Physical Therapy Inpatient Initial Evaluation Date: 02/01/2022 Referring Doctor: Sarita Gonzales MD PT Orders: PT CONSULT: Limited ability Precautions: COVID negative. Activity as tolerated. Patient Profile/Admitting Diagnosis: Dangelo is a 41-year-old male with diagnoses of ETOH abuse, depression with suicidal ideation, and elevated t roponin with referral made to assess mobility/safety. PMHX: All Active Problems? COVID (Acute) Elevated troponin (Acute) Depression with suicidal ideation (Acute) Anxiety (Acute 09/05/17) Methadone dependence (Acute 04/01/18) [facility] in [facility].? Hx intranasal and oral use of opioids.? Meets with therapist twice monthly; has had take-home in the past.Alcohol abuse with withdrawal (Acute) Family history of diabetes mellitus (DM) (Acute 09/05/17) Medical History? ADD (attention deficit disorder) Closed right ankle fracture (~09/2019) COVID Erectile dysfunction (10/03/17) Gynecomastia, male (03/11/18) secondary to methadone Hyperglycemia (09/05/17) Hyperprolactinemia (04/15/18) Hypertension Hypogonadism, male (03/24/18) Pending appt with Dr. Charles at [facility] in [place] Internal derangement of left knee QT prolongation Sprain of anterior cruciate ligament of left knee (~09/2019) Tobacco abuse (11/19/17) 1/2 ppd Social History/Home Situation: Lives in an program site providing support for alcoholism. Independent with all mobility ADLs prior to admission. Equipment Owned/DME: None Subjective: States that he was trtyin to sleep but is agreeable to PT consult. Reports mild nausea and headache that did not limit today's mobility per formance. Denies lightheadedness. Objective: General Observation: Supine in bed. Drowsy. Mental Status: Drowsy but oriented as to person, place, time, and purpose. Able to pay attention, focus, and respond appropriately. 19/05 sitter just outside patient's room. Pain: Reports headache. Denies pain in extremities. Vital Signs: WNL as closely monitored by nursing staff ROM: Right Upper Extremity: Shoulder Flexion WFL. Shoulder abduction WFL. Elbow flexion WFL. Wrist flexion WFL. Functional opening and closing of hand WFL. Left Upper Extremity: Shoulder Flexion WFL. Shoulder abduction WFL. Elbow flexion WFL. Wrist flexion WFL. Functional opening and closing of hand WFL. Right Lower Extremity: Hip flexion WFL. Hip abduction WFL. Knee flexion WFL. Ankle dorsiflexion WFL. Ankle plantarflexion WFL. Left Lower Extremity: Hip flexion WFL. Hip abduction WFL. Knee flexion WFL. Ankle dorsiflexion WFL. Ankle plantarflexion WFL. Strength: Right Upper Extremity: Shoulder flexors 5/5. Shoulder abductors 5/5. Elbow flexors 5/5. Elbow extensors 5/5. Data Programmer strong. Left Upper Extremity: Shoulder flexors 5/5. Shoulder abductors 5/5. Elbow flexors 5/5. Elbow extensors 5/5. Data Programmer strong. Right Lower Extremity: Hip flexors 5/5. Hip abductors 5/5. Knee flexors 5/5. Knee extensors 5/5. Ankle dorsiflexors 5/5. Ankle plantarflexors 5/5. Left Lower Extremity: Hip flexors 5/5. Hip abductors 5/5. Knee flexors 5/5. Knee extensors 5/5. Ankle dorsiflexors 5/5. Ankle plantarflexors 5/5. Bed Mobility/Transfers: Rolling independent Supine to sit independent Sit to supine independent Sit to stand independent Stand to sit independent Bed to bedside commode independent Bedside commode to bed independent Bed to chair independent Chair to bed with independent Gait: Instructed patient with level surface ambulation of 100 feet with independence. Unable to walk outside of ICU hallway due to ongoing safety precautions. Gait pattern unremarkable. Balance: Static Sitting: Normal Dynamic Sitting: Normal Static Standing: Normal Dynamic Standing: Good Special Tests: Mobility Limitations Standardized Measure [facility] AM-PAC 6 clicks Basic Mobility Inpatient Short Form: Raw Score: 24 CMS Score: 0% deficit Informed Consent/Education: Patient was instructed in purpose of PT consult. ASSESSMENT: Patient is independent with all mobility ADL performance without the need for an assistive device. No skilled servicess needed at this time. Continue with safety plan per facility protocol. Patient is assessed as a 63744 moderate complexity based on the following: History: 41-year-old male with past medical history as indicated above Examination: No demonstrable impairment in strength, balance, and mobility level with underlying impairments and functional limitations as exhibited above as well as deficit score of 0% utilizing the [facility] Mobility Inpatient Short Form Presentation: Evolving Decision Makin moderate complexity Goals: N/A. PT evalaution only. Plan of Care/Treatment Plan: N/A. PT evalaution only. TREATMENT CODE/TIME: 04726 x 28 minutes beginning at 10:58 AM. Thank you for the opportunity to participate in the care of this patient. Vero Trotter PT, DPT, CLT [facility] [place], [place]
--- NOTE | 2022-02-01 11:13 | W.PM.PROGNOT ---
Date of Service Date of service: 02/01/22 Time of Service: 11:13 Assessment and Plan Assessment and plan (1) Alcohol abuse with withdrawal: Status: Acute Assessment and plan: Doing better clinically, but we did have to resume librium. His zyprexa was decreased. Continue prn ativan per CIWA. Plan to try to d/c librium tomorrow. Keep in ICU with low threshold to transfer to medsur floor if the day goes well. Continue zyprexa 10 mg at night. Appreciate Dr Gonzalez's assistance. 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 (3) COVID: Status: Resolved Assessment and plan: Asymptomatic. S/p MAB on presentation. Repeat PCR testing negative yesterday - off precautions. Original PCR test had a very high cycling time c/w low viral load and it is possible that he was simply still testing positive after his infection at the end of October/beginning of November. O2 requirement overnight is felt to be due to sedating medications and not an acute pulmonary process. (4) Elevated troponin: Status: Acute Assessment and plan: DDx: Type 2 demand ischemia vs ?rhabdo/sz prior to admission (does have a h/o EtOh withdrawal seizure). He will need outpatient stress testing given global hypokinesis/reduced LVEF (45%) on echo. Continue atorvastatin and ASA. (5) Depression with suicidal ideation: Status: Acute Assessment and plan: continue fluoxetine and Zyprexa. Continue CPSO. Getting close to the point of being able to have a conversation with mental health. (6) Anxiety: Status: Acute Assessment and plan: as above (7) Methadone dependence: Status: Acute Assessment and plan: Continue methadone (8) DVT prophylaxis: Status: Acute Assessment and plan: Switch to DVT ppx dose of lovenox. (9) Discharge planning issues: Status: Acute Assessment and plan: Full code Anticipate being able to medically clear the patient in the next 24-48 hrs. Low threshold to transfer out of the ICU. Additionally, it was brought to my attention that the patient was not dishonorably discharged from the , but, rather, had a Bad Conduct Discharge. Subjective Subjective Interval history since last seen: Mr Pineda states he is feeling much better today. He CIWA score was 12 this am. He feels much less groggy. He is still seeing things - he thought there was a fruit fly right next to me that he tried to catch. Endorsed headache and mild nausea. Denies chest pain, shortness of breath, abdominal pain. Feels less disoriented today. Very apologetic about his behavior yesterday. Needed 2L of O2 at night with O2 with O2 sats of 88% due to sedating medications. Exam Narrative Exam Narrative: General: Much more alert male, A&Ox3, cooperative, appears more engaged, hallucinating in front of me (reaching for a fruit fly), not tremulous, much more coordinated today HEENT: EOMI, MMM Heart: RRR, no m/r/g Lungs: CTAB Abdomen: soft, nontender, nondistended Extremities: no e/c/c BLEs, more coordinated. Objective Last Vital Signs Temp 37.0 C 02/01/22 02:00 Pulse 55 L 02/01/22 02:01 Resp 17 02/01/22 02:01 BP 111/63 02/01/22 02:01 Pulse Ox 94 01/31/22 22:02 Laboratory Results - last 24 hr 01/31/22 01/31/22 10:00 11:20 COVID-19 Source Nasal/Nares SARS-CoV-2 (PCR) Negative Negative PAWSS Have you Been Recently Intoxicated or Drunk Within the Last 30 days?: Yes Have you Ever Experienced Previous Episodes of Alcohol Withdrawal?: Yes Have you ever Experienced Withdrawal Seizures?: Yes Have you ever Experienced Delirium Tremens(DT)s?: Unable to Obtain Have you ever undergone Alcohol Rehabilitation Treatment (i.e, inpt ot outpatient treatment programs)?: Yes Have you ever Experienced Blackouts?: Unable to Obtain Have you ever Combined Alcohol with other Downers within the last 90 days?: No Have you ever Combined Alcohol with any other Substance of Abuse during the last 90 days?: Yes Positive Blood Alcohol level on Presentation? [PCS.BAL]: Yes Evidence of Increased Autonomic Activity (i.e. HR>120, tremor, sweating, agitation, nausea)?: Yes Result: 8
--- NOTE | 2022-02-01 14:44 | CMPROGNOTE_ITS ---
- If Service Date Differs Date of service: 02/01/22 Time of Service: 14:44 Care Management Progress Note CM spoke with [place] Yvrose Ramsey RNCM and Joanie MANAGER LABOR DELIVERY. Joanie reports Dangelo will have 90 days of coverage and is eligible for inpatient psychiatric transfer. Joanie reported she would notify Eligibility Department for start date on Friday, if Dangelo is medically cleared, and agreeable to transfer. She will need to be notified directly P#[phone]. Joanie stated his 90 days of coverage would start on the request date, whether services are provided, or not. If Dangelo is willing, Hospitalist or CM will need to initiate [facility] to [facility] through the [place] transfer center: [phone].
[2022-02-01] MEDS: Milk of Magnesia 30 ML CUP PO (16:33)
[2022-02-01] MEDS: Nicotine 21 MG/24 HR PATCH TD (16:33)
[2022-02-01] MEDS: Atorvastatin 20 MG TAB PO (20:39)
[2022-02-01] MEDS: Normal Saline Flush 10 ML SYR IVP (20:40)
[2022-02-01] MEDS: OLANZapine 10 MG TAB PO (21:43)
[2022-02-01] MEDS: LORazepam 0.5 MG TAB PO (21:44)
--- NOTE | 2022-02-01 23:53 | NUR.NOTE ---
Spoke to Jeannine Prasad per request and safety care plan. Pt discussing AMA after hearing at 7pm nursing handoff report that librium was dc'd d/t apnea and pt continued somnolence. Pt wakes to nursing report and then falls back to sleep. An hour later pt inquires about what he overheard in report about librium dc'd. pt states, If Im not needing withdraw meds then Im going to go home. reviewed [facility] for [facility] ant PT states he is not able to be cared for by [facility] I lost my benefits d/t my DC for bad behavior-they are wrong, they wont take me, I went to court to try to get benefits and lost in appellate court, I have to be out at [facility] by 0830, no 0800, or I wont get my methadone dose for Friday. Reviewd with ARNOLD HAYES, reported to josé miguel GRAY CM and they are not available, emailed Beatrice CASTRO, called [facility] wang and reported pt's plan to AMA in the AM. Reviewed Nursing Note:
[2022-02-02] VITALS (10 sets, daily range): BP systolic 116–137; BP diastolic 63–87; PULSE 56–85; RESP 16; TEMP 36.3–37.1; O2SAT 93–97
[2022-02-02] MEDS: Folic Acid 1 MG TAB PO (09:00)
[2022-02-02] MEDS: Famotidine 20 MG TAB PO (09:01)
[2022-02-02] MEDS: Aspirin E.C. 81 MG TABEC PO (09:01)
[2022-02-02] MEDS: Docusate Sodium 100 MG CAP PO (09:01)
[2022-02-02] MEDS: cloNIDine 0.1 MG TAB PO (09:01)
[2022-02-02] MEDS: FLUoxetine 20 MG CAP 40 MG PO (09:01)
[2022-02-02] MEDS: Enoxaparin 40 MG/0.4 ML SYR SC (09:01)
[2022-02-02] MEDS: Psyllium PKT 1 EACH PO (09:02)
[2022-02-02] MEDS: Methadone Liquid 10 MG/ML 130 MG PO (09:03)
--- NOTE | 2022-02-02 09:30 | PDOC.MHCN ---
Date of service: 02/02/22 Time of Service: 09:30 Mental Health Crisis Note Presenting Issue How did you arrive at the ED and why did you come: Arrived by self, experience ETOH withdral and SI with cuts on wrist. Precipitating Factors Client denies SI/HI Disposition BEHAVIOR: Client is cooperative and forward thinking EYE CONTACT: Normal MOOD: Client reports nervous but feeling good AFFECT: normal range APPETITE: good SLEEP(trouble falling/staying asleep: good Plan Client is going home on proactive safety plan. Client will check in with [facility] on Sunday 02/04 at 10am. Client would like to follow up with on going therapy service with [facility]. Referral has been done Signature Clinician's Name/Title: Rigoberto Byrne BA
--- NOTE | 2022-02-02 11:23 | W.PM.DS.N ---
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: Status: Acute (3) Suicide attempt: Status: Acute (4) COVID: Status: Resolved Asessment and Plan: Asymptomatic, s/p MAB on 01/26/22 (5) Elevated troponin: Status: Acute Asessment and Plan: will need outpatient MPI (6) Depression with suicidal ideation: Status: Acute (7) Methadone dependence: Status: Chronic Asessment and Plan: [facility] client (8) Cardiomyopathy: Status: Acute (9) HFrEF (heart failure with reduced ejection fraction): Status: Acute (10) Anxiety: Status: Chronic Discharge Plan Disposition Patient Disposition: HOME Condition: Stable Discharge Details Reason For Visit: Alcohol Withdrawal,Elevated Troponin,Suicidal Idea Admit Date/Time: 01/25/22 18:38 Admit Provider: aGbo Logan Attending Provider: Gabo Logan Primary Care Provider: Sophia Kelsey Hospital Course Hospital Course: Mr Pineda is a 41 year old male with PMHx of alcohol abuse with h/o DTs and alcohol withdrawal seizures, as well as h/o ADD, hypertension, tobacco abuse, opioid dependence on methadone via [facility] who was admitted to [facility] ICU under the hospitalist service on 01/25/22 exhibiting signs of alcohol withdrawal in addition to having attempted self harm by cutting his left wrist (superficially, not requiring intervention). Additionally, he tested positive for COVID-19 and had a borderline elevated troponin I (76 ng/L). There was no evidence of ACS by EKG or symptoms.. Because the patient is on methadone therapy, benzodiazepine pathway of treatment of alcohol withdrawal was pursued. He was started on scheduled librium with prn ativan per CIWA scale. For symptoms of delirium/hallucinations, psychiatry was consulted and recommended addition of antipsychotic agent to his tx, so the patient was started on zyprexa. COVID-19 was treated with MAB and had remained relatively asymptomatic. As far as his cardiac workup, he did not have any arrhythmias. His echocardiogram revealed LVEF of 45% with global hypokinesis with normal size chambers and normal appearance of valves. The patient was starte don empiric aspirin and statin and will need outpatient MPI on discharge. There is no evidence of fluid overload. Etiology of this could be covid-related cardiomyopathy vs induced by stimulants or alcohol. The patient was downgraded to medical surgical level of care on 01/27/22, but required upgrade back to the ICU level of care as his symptoms of delirium intensified on 01/31/22, when he tried to leave AMA, but agreed to stay eventually. He was cleared of COVID precautions when he tested negative x 2 on 01/31/22. His alcohol withdrawal has clinically resolved as of today and he was cleared by mental health to be discharged home today with outpatient [facility] referral. He is medically stable for discharge home today. Care for patient as well as completion of his discharge summary on day of discharge took 60 minutes. Home Meds and New Rx's Prescriptions: New clonidine HCl 0.1 mg Tablet 0.1 mg PO BID Qty: 60 0RF atorvastatin 20 mg Tablet 20 mg PO QPM Qty: 30 0RF aspirin 81 mg Tablet,Delayed Release (Dr/Ec) 81 mg PO DAILY Qty: 30 0RF Metamucil Sugar-Free (aspart) 3.4 gram/5.8 gram Powder See Rx Instructions .ROUTE .COMPLEX Qty: 0 0RF Rx Instructions: 3.4 grams PO BID docusate sodium [Colace] 100 mg Capsule 100 mg PO BID Qty: 60 0RF olanzapine 10 mg Tablet 10 mg PO HS Qty: 30 0RF Continued multivitamin Tablet 1 tab PO DAILY 0RF fluoxetine 40 mg capsule 40 mg PO DAILY Qty: 30 0RF Label Comments: Pt takes this medication daily in the morning. methadone 5 MG/5 ML solution 130 mg PO DAILY 0RF Label Comments: Patient states he got his dose yesterday. lisdexamfetamine 60 mg capsule 60 mg PO QAM MDD 60 Qty: 28 0RF Label Comments: Sometimes forget to take the medication. Last taken two days ago according to pt. folic acid 1 mg Tablet 1 mg PO QAM Qty: 0 0RF thiamine mononitrate (vit B1) [Vitamin B-1 (mononitrate)] 100 mg Tablet 100 mg PO QAM Qty: 0 0RF Label Comments: Have not taken it for a long time. nicotine 14 mg/24 hr Patch 24 Hour 14 mg transdermal DAILY Qty: 0 0RF Discontinued clonidine HCl 0.2 mg tablet 0.2 mg PO BID Qty: 60 5RF Label Comments: Did not take the medication today. chlordiazepoxide HCl 25 mg Capsule See Rx Instructions .ROUTE .COMPLEX Qty: 39 0RF Rx Instructions: 2 tabs TID for 3 days, then 2 tabs BID for 3 days, then 1 tab BID for 3 days, then 1 tab daily for 3 days. Discharge Instructions Instructions: Olanzapine (By mouth), Heart Healthy Diet (DC), Alcohol Withdrawal (DC), Nuclear Stress Test (DC) Additional Instructions: You must abstain from further alcohol use. Follow up with [facility] mental health as well as with a sobriety pitching coach. Work on tobacco cessation. Return to the hospital with any fever, bleeding, chest pain, or shortness of breath. Follow up for your stress test. Follow up with your PCP in 1-2 weeks. Follow up with cardiology. Care Plan Goals: Home with [facility] support. Referrals: Mady Helm MD [ [facility] STAFF PHYSICIAN] - (new diagnosis of cardiomyopathy) Sophia Kelsey MD [Primary Care Provider] - Activity:: Activity as Tolerated Equipment/Supplies:: No Equipment Needed Diet:: Heart Healthy diet Discharge Orders Discharge Orders: Discharge Order (Routine); Ordered 02/02/22 Ordered By: Sarita Gonzales Other Ambulatory Orders: NM MPI rest & stress grp (Routine) Timeframe: 2 Weeks Facility: [facility] - Location: DIAGNOSTIC IMAGING Ordered By: Sarita Gonzales DS: Summary Time Spent with Patient providing and/or coordinating discharge services: Greater than 30 minutes Status at Discharge Functional status at discharge: independent ambulation Overall status at discharge: patient is back to baseline Mental Status: mental status grossly normal Speech and Movement: speech and movement normal Mood: congruent mood Affect: normal affect Exam Narrative Exam Narrative: General: Much more alert male, A&Ox3, cooperative, appears more engaged, hallucinating in front of me (reaching for a fruit fly), not tremulous, much more coordinated today HEENT: EOMI, MMM Heart: RRR, no m/r/g Lungs: CTAB Abdomen: soft, nontender, nondistended Extremities: no e/c/c BLEs, more coordinated. Psych Mental Status: mental status grossly normal Speech and Movement: speech and movement normal Mood: congruent mood Affect: normal affect DS: Data Vitals/I&O Vitals and I&O: Vital Signs Temperature 37.1 C 02/02/22 09:11 Temperature Source Temporal Artery Scan 02/02/22 09:11 Pulse 85 02/02/22 09:11 Pulse Rhythm Regular 01/31/22 09:40 Pulse 71 02/02/22 08:00 Respiratory Rate 16 02/02/22 04:31 Respiratory Effort Non-Labored 02/02/22 04:31 Respiratory Depth Normal 02/02/22 04:31 Respiratory Pattern Normal 02/02/22 04:31 Blood Pressure 137/87 02/02/22 09:11 Blood Pressure Mean 98 02/02/22 09:11 Blood Pressure Position Supine 02/02/22 04:31 Pulse Oximetry 97 02/02/22 09:11 Respiratory End-tidal CO2 54 02/01/22 16:01 Oxygen Delivery Method Room Air 02/02/22 04:31 Oxygen Flow Rate 0 02/02/22 04:31 Pain Level 0 02/02/22 04:31 Intake & Output 02/01/22 02/01/22 02/02/22 11:59 23:59 11:59 Intake Total 805 / 3455 2650 / 3455 585 / 585 Output Total 1675 / 3325 1650 / 3325 3000 / 3000 Balance -870 / 130 1000 / 130 -2415 / -2415 Intake: IV Oral 805 / 3445 2640 / 3445 575 / 575 Output: Urine 1675 / 3325 1650 / 3325 3000 / 3000 Other: Urine Color Pale Yellow Pale Yellow Urine Appearance Clear Clear Clear Urine Odor None Normal Normal Comment voided 775c's of urine in urinal. Voiding Methods Urinal Urinal Urinal Data Completed and Pending Completed studies during hospitalization [Text1]: Echo: Normal left ventricular wall thickness and chamber size.? Estimated ejection fraction is 45% with global hypokinesis The right ventricle appears grossly normal in size and systolic function Both atria are normal in size Trileaflet aortic valve without stenosis or regurgitation Thickened mitral leaflets, mild mitral regurgitation Normal tricuspid valve with mild regurgitation.? 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 Meets with therapist twice monthly; has had take-home in the past. Alcohol abuse with withdrawal (Acute) Family history of diabetes mellitus (DM) (Acute 09/05/17) Medical History ADD (attention deficit disorder) Closed right ankle fracture (~09/2019) COVID Erectile dysfunction (10/03/17) Gynecomastia, male (03/11/18) secondary to methadone Hyperglycemia (09/05/17) Hyperprolactinemia (04/15/18) Hypertension Hypogonadism, male (03/24/18) Pending appt with Dr. Charles at [facility] [place] Internal derangement of left knee QT prolongation Sprain of anterior cruciate ligament of left knee (~09/2019) Tobacco abuse (11/19/17) 1/2 ppd Family History Mother Diabetes Cancer thyroid cancer Father Diabetes Essential hypertension Paternal Grandfather No problems noted. Maternal Grandfather Stroke Paternal Uncle Cancer stomach cancer Social History Smoking/Tobacco Use Status: Current every day Tobacco Type: cigarettes Smoking risk assessment performed?: Yes Alcohol Intake: current Alcohol Intake frequency: 3 or more drinks per day Alcohol type: beer and hard liquor Drug use: Occasionally Substance use type: does not use Details: normally drinks 1/2 gallon per 24 hours Household members: other Details: 3 other men in recovery. 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
--- NOTE | 2022-02-02 11:28 | CMDISCH_ITS ---
- If Service Date Differs Date of service: 02/02/22 Time of Service: 11:29 LACE Index Scoring Tool - Questions: Length of Stay (in days): 7 - 13 Acuity (Admit via E.D.?): Yes E.D. Visits: 12 - Answers: Total Score: 12 Risk of Readmission: High Risk Care Management Discharge Reason for Hospitalization: alcohol withdrawal, elevated troponins Discharge Plan: Dangelo will return home today with an active plan for safety in the community between himself and [facility]. His friend will drive him home via private vehicle. He will follow up with his PCP and discharge plan of care. He will have his methadone dose on 02/03/22 in the ED, as [facility] has closed today prior to his discharge, and are not open on Friday. CM provided a last dose letter for him today, and will provide an updated letter tomorrow, once he presents for his scheduled dose. He is happy to be returning home. Patient/Family Education Needs: Review discharge instructions and limitations, safety plan created between himself and [facility] staff, discussion of self care needs including ask me three. - MH Services (Omit if N/A) Current MH Services: [facility] - Disposition Disposition: Community Discharge
== END 2022-02-02 13:08 | disposition home or self-care (01) | DRG 896 ==
LOC: ER 19:13 → ICU 20:21
PROVIDERS: Internal Medicine; Nurse Practitioner Family; Admitting Provider Internal Medicine; Emergency Provider Physician Assistant; PCP Family Medicine; Visit Provider Internal Medicine
DX: F10.131 Alcohol abuse with withdrawal delirium; U07.1 COVID-19; I50.21 Acute systolic (congestive) heart failure; R45.851 Suicidal ideations; F11.20 Opioid dependence, uncomplicated; F10.151 Alcohol abuse with alcohol-induced psychotic disorder with hallucinations; I24.8 Other forms of acute ischemic heart disease; I42.9 Cardiomyopathy, unspecified; Y90.6 Blood alcohol level of 120-199 mg/100 ml; F32.A Depression, unspecified; F41.9 Anxiety disorder, unspecified; X78.9XXA Intentional self-harm by unspecified sharp object, initial encounter; S61.512A Laceration without foreign body of left wrist, initial encounter; F98.8 Other specified behavioral and emotional disorders with onset usually occurring in childhood and adolescence; N62 Hypertrophy of breast; T40.3X5A Adverse effect of methadone, initial encounter; F17.210 Nicotine dependence, cigarettes, uncomplicated; R94.31 Abnormal electrocardiogram [ECG] [EKG]; R73.9 Hyperglycemia, unspecified; Z59.00 Homelessness unspecified; I11.0 Hypertensive heart disease with heart failure
CPT/HCPCS: 36415; 80048; 80053; 80061; 80076; 80307; 82550; 86850; 86900; 86901; 87635; 90471; 93005; 96361; 96365; 96366; 96375; 97162; 99285; 99291; J1650; Q0222; Q3014; 80320; 81003; 82728; 83735; 83880; 84100; 84132; 84484; 85025; 85379; 86140; 93010; 93306; 99232; 99233; 99239; J2060; J3480

== ENCOUNTER 2022-02-03 07:01 | Emergency (ER) | payer MEDICAID, SELFPAY ==
[2022-02-03 07:09] VITALS: BP 141/87; PULSE 130; RESP 18; TEMP 36.7; O2SAT 94
[2022-02-03] MEDS: Methadone Liquid 10 MG/ML 130 MG PO (07:14)
--- NOTE | 2022-02-03 07:30 | W.ED.GENAD ---
Discharge Plan Disposition Patient Disposition: HOME Condition: Good Discharge Details Clinical Impression: Methadone dependence Primary Care Provider: Sophia Kelsey ED Provider: Win Gleason Home Meds and New Rx's Prescriptions: Continued multivitamin Tablet 1 tab PO DAILY 0RF fluoxetine 40 mg capsule 40 mg PO DAILY Qty: 30 0RF Label Comments: Pt takes this medication daily in the morning. methadone 5 MG/5 ML solution 130 mg PO DAILY 0RF Label Comments: Patient states he got his dose yesterday. lisdexamfetamine 60 mg capsule 60 mg PO QAM MDD 60 Qty: 28 0RF Label Comments: Sometimes forget to take the medication. Last taken two days ago according to pt. folic acid 1 mg Tablet 1 mg PO QAM Qty: 0 0RF thiamine mononitrate (vit B1) [Vitamin B-1 (mononitrate)] 100 mg Tablet 100 mg PO QAM Qty: 0 0RF Label Comments: Have not taken it for a long time. clonidine HCl 0.1 mg Tablet 0.1 mg PO BID Qty: 60 0RF atorvastatin 20 mg Tablet 20 mg PO QPM Qty: 30 0RF aspirin 81 mg Tablet,Delayed Release (Dr/Ec) 81 mg PO DAILY Qty: 30 0RF Metamucil Sugar-Free (aspart) 3.4 gram/5.8 gram Powder See Rx Instructions .ROUTE .COMPLEX Qty: 0 0RF Rx Instructions: 3.4 grams PO BID docusate sodium [Colace] 100 mg Capsule 100 mg PO BID Qty: 60 0RF olanzapine 10 mg Tablet 10 mg PO HS Qty: 30 0RF nicotine 14 mg/24 hr Patch 24 Hour 14 mg transdermal DAILY Qty: 0 0RF Discharge Instructions Instructions: Methadone (By mouth) Additional Instructions: Please follow-up closely with the [facility] clinic for your Friday morning dosing. Please drink plenty of fluids, and stay well-hydrated. If you notice any worsening of your symptoms, or any new symptoms such as vomiting, diarrhea, fever, chills, shortness of breath, chest pain, numbness, weakness, or fainting , please return immediately to the emergency department for reevaluation. Please follow up with your primary care provider as soon as possible for reassessment and reevaluation. As always, it was a pleasure participating in your medical care today. Referrals: Sophia Kelsey MD [Primary Care Provider] - Discharge Data Discharge Date/Time-TO BE ENTERED AT DEPARTURE: 02/03/22 07:35 Medical Decision Making 41-year-old male with a past medical history of methadone use, alcoholism, recently admitted for withdrawal, presents today for methadone dosing. Patient states that he was admitted, did not get a plan with the methadone clinic for dosing over the weekend because of his admission, and so he was instructed by the hospital to complete his methadone dosing on Friday and Friday here in the ER. He denies any other complaints. He does admit to drinking 5 to 10 cups of coffee throughout the evening, being slightly jittery because of this and not sleeping. He denies any chest pain, cocaine use, or other complaints time. /Mild tachycardia exam is otherwise unremarkable. Tachycardia is likely from the patient notable caffeine use recently, as well as mild withdrawals. Patient will be administered his methadone dose now. He has been complaints. He would like to go home. He does not want any further work-up. I have extensively reviewed the treatment plan and discharge instructions with the patient. I have addressed all patient concerns at this time. The patient was made aware of what symptoms to monitor for that would warrant a return to the emergency department. Discussed the plan with the patient, they demonstrate verbal understanding and agreement with our assessment and plan at this time. The documentation in this chart was dictated using [employer] dictation software. Please excuse any dictation errors. HPI General Date/Time Provider Initiated Documentation: 02/03/22 07:06. HPI Narrative: 41-year-old male with a past medical history of methadone use, alcoholism, recently admitted for withdrawal, presents today for methadone dosing. Patient states that he was admitted, did not get a plan with the methadone clinic for dosing over the weekend because of his admission, and so he was instructed by the hospital to complete his methadone dosing on Friday and Friday here in the ER. He denies any other complaints. He does admit to drinking 5 to 10 cups of coffee throughout the evening, being slightly jittery because of this and not sleeping. He denies any chest pain, cocaine use, or other complaints time. Related Data Home Medications Medication Instructions Recorded Confirmed methadone 5 mg/5 mL oral solution 130 mg PO DAILY ml 09/05/17 02/03/22 multivitamin 1 tab PO DAILY 08/15/21 02/03/22 folic acid 1 mg tablet 1 mg PO QAM #0 tab 11/14/21 02/03/22 thiamine mononitrate (vit B1) 100 100 mg PO QAM #0 tab 11/14/21 02/03/22 mg tablet (Vitamin B-1 (mononitrate)) fluoxetine 40 mg capsule 40 mg PO DAILY #30 cap 11/30/21 02/03/22 nicotine 14 mg/24 hr daily 14 mg TRANSDERMAL DAILY #0 ea 12/23/21 02/03/22 transdermal patch lisdexamfetamine 60 mg capsule 60 mg PO QAM #28 cap MDD 60 01/22/22 02/03/22 aspirin 81 mg tablet,delayed 81 mg PO DAILY #30 tab 02/02/22 02/03/22 release atorvastatin 20 mg tablet 20 mg PO QPM #30 tab 02/02/22 02/03/22 clonidine HCl 0.1 mg tablet 0.1 mg PO BID #60 tab 02/02/22 02/03/22 docusate sodium 100 mg capsule 100 mg PO BID #60 cap 02/02/22 02/03/22 (Colace) olanzapine 10 mg tablet 10 mg PO HS #30 tab 02/02/22 02/03/22 psyllium husk (aspartame) 3.4 See Rx Instructions .ROUTE 02/02/22 02/03/22 gram/5.8 gram oral powder .COMPLEX #0 g (Metamucil Sugar-Free (aspartame)) Previous Rx's Medication Instructions Recorded folic acid 1 mg tablet 1 mg PO QAM #0 tab 11/14/21 thiamine mononitrate (vit B1) 100 100 mg PO QAM #0 tab 11/14/21 mg tablet (Vitamin B-1 (mononitrate)) fluoxetine 40 mg capsule 40 mg PO DAILY #30 cap 11/30/21 nicotine 14 mg/24 hr daily 14 mg TRANSDERMAL DAILY #0 ea 12/23/21 transdermal patch lisdexamfetamine 60 mg capsule 60 mg PO QAM #28 cap MDD 60 01/22/22 aspirin 81 mg tablet,delayed 81 mg PO DAILY #30 tab 02/02/22 release atorvastatin 20 mg tablet 20 mg PO QPM #30 tab 02/02/22 clonidine HCl 0.1 mg tablet 0.1 mg PO BID #60 tab 02/02/22 docusate sodium 100 mg capsule 100 mg PO BID #60 cap 02/02/22 (Colace) olanzapine 10 mg tablet 10 mg PO HS #30 tab 02/02/22 psyllium husk (aspartame) 3.4 See Rx Instructions .ROUTE 02/02/22 gram/5.8 gram oral powder .COMPLEX #0 g (Metamucil Sugar-Free (aspartame)) Allergies Allergy/AdvReac Type Severity Reaction Status Date / Time No Known Allergies Allergy Verified 02/03/22 08:09 General Stated Complaint: DrugWithdr/MAT PACO: 5 Review of Systems All systems reviewed & are unremarkable except as noted in HPI and below PFSH All Active Problems HFrEF (heart failure with reduced ejection fraction) (Acute) Cardiomyopathy (Acute) Suicide attempt (Acute) 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 Meets with therapist twice monthly; has had take-home in the past. Alcohol abuse with withdrawal (Acute) Family history of diabetes mellitus (DM) (Acute 09/05/17) Medical History ADD (attention deficit disorder) Closed right ankle fracture (~09/2019) COVID Erectile dysfunction (10/03/17) Gynecomastia, male (03/11/18) secondary to methadone Hyperglycemia (09/05/17) Hyperprolactinemia (04/15/18) Hypertension Hypogonadism, male (03/24/18) Pending appt with Dr. Charles at [facility] in [place] Internal derangement of left knee QT prolongation Sprain of anterior cruciate ligament of left knee (~09/2019) Tobacco abuse (11/19/17) 1/2 ppd Family History Mother Diabetes Cancer thyroid cancer Father Diabetes Essential hypertension Paternal Grandfather No problems noted. Maternal Grandfather Stroke Paternal Uncle Cancer stomach cancer Social History Smoking/Tobacco Use Status: Current every day Tobacco Type: cigarettes Smoking risk assessment performed?: Yes Alcohol Intake: current Alcohol Intake frequency: 3 or more drinks per day Alcohol type: beer and hard liquor Drug use: Occasionally Substance use type: does not use Details: normally drinks 1/2 gallon per 24 hours Household members: other Details: 3 other men in recovery. 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 3.ENT: Atraumatic external nose and ears. Moist MM. Neck: Symmetric, trachea midline, No thyromegaly. 4.CVS: +S1/S2, No murmurs or gallops. Peripheral pulses 2+ and equal in all extremities. Brisk capillary refill in all extremities. 5.RESP: Unlabored respiratory effort. Clear to auscultation bilaterally. No wheezes rales or rhonchi 6.GI: Soft, Nontender/Nondistended, No hepatosplenomegaly. No guarding or rebound. 7.MSK: Normocephalic/Atraumatic, Extremities w/o deformity or ttp No cyanosis or clubbing, Normal movement of all extremities 8.Skin: Warm, Dry. No rashes or lesions. 9.Neuro: global sales executive II-XII grossly intact. Sensation grossly intact, no focal neurologic deficits. 10.Psych: (AAO) x3. Appropriate mood and affect Course Vital Signs Vital signs: Vital Signs Temperature 36.7 C 02/03/22 07:09 Pulse 130 H 02/03/22 07:09 Respiratory Rate 18 02/03/22 07:09 Blood Pressure 141/87 H 02/03/22 07:09 Pulse Oximetry 94 02/03/22 07:09 Temperature 36.7 C 02/03/22 07:09 Temperature Source Oral 02/03/22 07:09 Pulse 130 H 02/03/22 07:09 Respiratory Rate 18 02/03/22 07:09 Blood Pressure 141/87 H 02/03/22 07:09 Blood Pressure Position Sitting 02/03/22 07:09 Pulse Oximetry 94 02/03/22 07:09 Oxygen Delivery Method Room Air 02/03/22 07:09 Oxygen Flow Rate 0 02/03/22 07:09 Pain Level 0 02/03/22 07:09
--- NOTE | 2022-02-03 07:56 | NUR.NOTE ---
02/03/22 Patient, Dangelo Pineda ( 1980), received his 130 mg methadone dose here at [facility] ER. If you have any questions or concerns, please contact [facility] ED at [phone]. Thank you. Staff involved in patient care today 02/03/22 - June Gleason
== END 2022-02-03 07:35 | disposition home or self-care (01) ==
PROVIDERS: Emergency Provider Student in an Organized Health Care Education/Training Program; PCP Family Medicine
DX: F11.20 Opioid dependence, uncomplicated (principal)
CPT/HCPCS: 99283

== ENCOUNTER 2022-02-06 08:17 | Inpatient (IN) | payer MEDICAID, SELFPAY ==
[2022-02-06] VITALS (42 sets, daily range): BP systolic 111–180; BP diastolic 74–120; PULSE 64–130; RESP 8–25; TEMP 35.6–36.9; O2SAT 91–99
--- NOTE | 2022-02-06 08:30 | RT.EKG_ITS ---
APPROVED REPORT Exam: Resting ECG Reason for Exam: tachycardia Patient Location: E HR:97 bpm ECG Measurements Heart Rate 97 AXIS ID 133 P 42 QRSd 92 QRS 12 QT 417 T -5 QTc 530 Conclusion Sinus rhythm...normal P axis, V-rate 60- 99 Probable left atrial enlargement...P >50mS, <-0.10mV V1 Prolonged QT interval...QTc >500mS no STEMI I have reviewed and interpreted ECG and agree with software generated interpretation.
[2022-02-06] MEDS: chlordiazePOXIDE 25 MG CAP 50 MG PO (09:13)
[2022-02-06] MEDS: LORazepam 2 MG/ML VIAL IVP (09:13)
[2022-02-06 09:21] LABS: Abs Immature Grans 0.03 10^3/uL (0.0-0.06); Absolute Basophil Count 0.06 10^3/uL (0.0-0.2); Absolute Eosinophil Count 0.05 10^3/uL (0.0-0.7); Absolute Lymphocyte Count 1.83 10^3/uL (1.2-3.4); Absolute Monocyte Count 0.54 10^3/uL (0.1-0.8); Basophils % 0.7; Eosinophils % 0.6; HCT 40.5 % (40.0-50.0); HGB 13.6 g/dL (13.5-17.5); Immature Grans % 0.4; MCHC 33.6 % (32.0-36.0); MCV 98.3 fL (80-95); MPV 9.2 fL (8.0-11.0); Monocytes % 6.5; Neutrophils % 69.8; Nucleated RBC 0 %; Platelet Count 321 10^3/uL (130-400); RBC 4.12 10^6/uL (4.36-5.78); RDW 12.2 % (11.8-14.1); RDW-SD 44.2 fL; WBC 8.31 10^3/uL (4.4-10.8)
[2022-02-06 09:33] LABS: Magnesium 2.2 mg/dL (1.8-2.4)
[2022-02-06 09:35] LABS: Source Nasal/Nares
[2022-02-06 09:45] LABS: ALT 92 U/L (16-63); AST 34 U/L (15-37); Albumin 3.9 g/dL (3.4-5.0); Alkaline Phosphatase 92 U/L (46-116); Anion Gap 6.6 mmol/L (3-11); BUN 16 mg/dL (7-18); Bilirubin, Total 0.3 mg/dL (0.2-1.0); CO2 29.4 mmol/L (21.0-32.0); CREATININE 0.9 mg/dL (0.70-1.30); Calcium 9.6 mg/dL (8.5-10.1); Chloride 102 mmol/L (98-107); ETHANOL BLOOD 56.8 mg/dL (<10); Glucose 95 mg/dL (74-106); Potassium 4.1 mmol/L (3.5-5.1); Sodium 138 mmol/L (136-145); TSH (W/Ref FT4) 1.31 uIU/mL (0.36-3.74); Total Protein 7.8 g/dL (6.4-8.2); Troponin I < 50 ng/L (<or=60)
[2022-02-06 09:49] LABS: Salicylate 3.8 mg/dL (<2.8)
[2022-02-06 09:51] LABS: Acetaminophen < 2 ug/mL (10-30)
[2022-02-06] MEDS: MAGNESIUM SULFATE 8.12 MEQ, MULTIVITAMIN 10 ML, THIAMINE 100 MG, FOLIC ACID 1 MG in Nor... 168.867 MG IV (10:05)
[2022-02-06 10:15] LABS: COVID-19 PCR Negative (Negative)
--- NOTE | 2022-02-06 10:19 | W.ED.GENAD ---
Discharge Plan Disposition Patient Disposition: [facility] INPATIENT Condition: Serious Discharge Details Clinical Impression: Alcohol abuse with withdrawal, Depression with suicidal ideation Primary Care Provider: Sophia Kelsey ED Provider: Gabo Conde Home Meds and New Rx's Prescriptions: No Action multivitamin Tablet 1 tab PO DAILY 0RF fluoxetine 40 mg capsule 40 mg PO DAILY Qty: 30 0RF Label Comments: Pt takes this medication daily in the morning. methadone 5 MG/5 ML solution 130 mg PO DAILY 0RF Label Comments: Patient states he got his dose yesterday. folic acid 1 mg Tablet 1 mg PO QAM Qty: 0 0RF thiamine mononitrate (vit B1) [Vitamin B-1 (mononitrate)] 100 mg Tablet 100 mg PO QAM Qty: 0 0RF Label Comments: Have not taken it for a long time. clonidine HCl 0.1 mg Tablet 0.1 mg PO BID Qty: 60 0RF atorvastatin 20 mg Tablet 20 mg PO QPM Qty: 30 0RF aspirin 81 mg Tablet,Delayed Release (Dr/Ec) 81 mg PO DAILY Qty: 30 0RF Metamucil Sugar-Free (aspart) 3.4 gram/5.8 gram Powder See Rx Instructions .ROUTE .COMPLEX Qty: 0 0RF Rx Instructions: 3.4 grams PO BID docusate sodium [Colace] 100 mg Capsule 100 mg PO BID Qty: 60 0RF olanzapine 10 mg Tablet 10 mg PO HS Qty: 30 0RF Vyvanse 60 mg capsule 60 mg PO DAILY 0RF Label Comments: TAKE ONE CAPSULE BY MOUTH EVERY MORNING nicotine 14 mg/24 hr Patch 24 Hour 14 mg transdermal DAILY Qty: 0 0RF Medical Decision Making This is a 41-year-old gentleman, well-known to our hospital for similar presentations, most recently admitted on 01-25 through 02-02. He presents today for ongoing alcohol abuse with withdrawal and depression with SI, self cutting behavior. He presents tremulous, tachycardic, anxious. The self inflicted abrasions do not require any closure. Tetanus status is up-to-date. Given his history of alcohol withdrawal, will initiate a CIWA, given his methadone dependence will initiate 2 mg IV Ativan and 50 p.o. Librium as this has worked well in the past. We will also provide a banana bag. Will obtain laboratory values for medical screening evaluation as well as initiate a CPSO, interim care plan, and once medically cleared will request a mental health evaluation. Initial CIWA of 22 but after being medicated and rechecked he reports that his symptoms are improving, score now of 17. Heart rate is now in the high 80s. He is only minimally tremulous. Laboratory values do not reveal any obvious emergent process that would inhibit mental health evaluation, alcohol of 56.8. Given his known alcohol withdrawal, plan is to discuss the case with our hospitalist team as he will likely require admission for his alcohol withdrawal and he will need a mental health evaluation. Given his ongoing depression, SI with self-inflicted wounds, question if you will require inpatient hospitalization. Patient has been in the ER now for nearly 3 hours, alcohol level should be 0, I have reached out to mental health to make them aware that they need to evaluate the patient whether he be here in the ER or admitted to our facility. Case was discussed with Dr. Rogers who is agreeable to admission and given the patient's withdrawal, question of alcohol withdrawal seizure, will admit to the ICU. This documentation was generated using [employer] dictation system, please disregard any oddities of phrase or misspellings. Medical Records Medical records reviewed: Yes I reviewed the patient's medical records. Lab Data Lab results reviewed: Yes I reviewed the patient's lab results. Labs: Laboratory Tests Range/Units 02/06/22 02/06/22 02/06/22 09:05 09:05 09:05 WBC (4.4-10.8) 10^3/uL 8.31 RBC (4.36-5.78) 10^6/uL 4.12 L Hgb (13.5-17.5) g/dL 13.6 Hct (40.0-50.0) % 40.5 MCV (80-95) fL 98.3 H MCH (27.0-33.0) pg 33.0 MCHC (32.0-36.0) % 33.6 RDW (11.8-14.1) % 12.2 Plt Count (130-400) 10^3/uL 321 D MPV (8.0-11.0) fL 9.2 Immature Gran % 0.4 Neutrophils % 69.8 Lymphocytes % 22.0 Monocytes % 6.5 Eosinophils % 0.6 Basophils % 0.7 Nucleated RBC % % 0 Absolute Neutrophils (1.2-6.7) 10^3/uL 5.80 Absolute Lymphocytes (1.2-3.4) 10^3/uL 1.83 Absolute Monocytes (0.1-0.8) 10^3/uL 0.54 Absolute Eosinophils (0.0-0.7) 10^3/uL 0.05 Absolute Basophils (0.0-0.2) 10^3/uL 0.06 Sodium (136-145) mmol/L 138 Potassium (3.5-5.1) mmol/L 4.1 Chloride (98-107) mmol/L 102 Carbon Dioxide (21.0-32.0) mmol/L 29.4 Anion Gap (3-11) mmol/L 6.6 BUN (7-18) mg/dL 16 Creatinine (0.70-1.30) mg/dL 0.9 Estimated GFR/1.73 m2 (mL/min/1.73m2) >= 60.00 Glucose (74-106) mg/dL 95 Calcium (8.5-10.1) mg/dL 9.6 Magnesium (1.8-2.4) mg/dL Total Bilirubin (0.2-1.0) mg/dL 0.3 AST (15-37) U/L 34 ALT (16-63) U/L 92 H Alkaline Phosphatase (46-116) U/L 92 Troponin I (<or=60) ng/L < 50 Total Protein (6.4-8.2) g/dL 7.8 Albumin (3.4-5.0) g/dL 3.9 TSH (0.36-3.74) uIU/mL 1.31 Urine Color (Yellow) Urine Clarity (Clear) Urine pH (5-8) Ur Specific Seffner (1.005-1.025) Urine Protein (Negative) mg/dL Urine Ketones (Negative) mg/dL Urine Blood (Negative) Urine Nitrite (Negative) Urine Bilirubin (Negative) Urine Urobilinogen (Up TO 0.2) EU/dL Ur Leukocyte Esterase (Negative) Urine Glucose (Negative) mg/dL Salicylates (<2.8) mg/dL 3.8 Acetaminophen (10-30) ug/mL < 2 Ethyl Alcohol (<10) mg/dL 56.8 H COVID-19 Source SARS-CoV-2 (PCR) (Negative) Range/Units 02/06/22 02/06/22 02/06/22 09:05 09:30 11:05 WBC (4.4-10.8) 10^3/uL RBC (4.36-5.78) 10^6/uL Hgb (13.5-17.5) g/dL Hct (40.0-50.0) % MCV (80-95) fL MCH (27.0-33.0) pg MCHC (32.0-36.0) % RDW (11.8-14.1) % Plt Count (130-400) 10^3/uL MPV (8.0-11.0) fL Immature Gran % Neutrophils % Lymphocytes % Monocytes % Eosinophils % Basophils % Nucleated RBC % % Absolute Neutrophils (1.2-6.7) 10^3/uL Absolute Lymphocytes (1.2-3.4) 10^3/uL Absolute Monocytes (0.1-0.8) 10^3/uL Absolute Eosinophils (0.0-0.7) 10^3/uL Absolute Basophils (0.0-0.2) 10^3/uL Sodium (136-145) mmol/L Potassium (3.5-5.1) mmol/L Chloride (98-107) mmol/L Carbon Dioxide (21.0-32.0) mmol/L Anion Gap (3-11) mmol/L BUN (7-18) mg/dL Creatinine (0.70-1.30) mg/dL Estimated GFR/1.73 m2 (mL/min/1.73m2) Glucose (74-106) mg/dL Calcium (8.5-10.1) mg/dL Magnesium (1.8-2.4) mg/dL 2.2 Total Bilirubin (0.2-1.0) mg/dL AST (15-37) U/L ALT (16-63) U/L Alkaline Phosphatase (46-116) U/L Troponin I (<or=60) ng/L Total Protein (6.4-8.2) g/dL Albumin (3.4-5.0) g/dL TSH (0.36-3.74) uIU/mL Urine Color (Yellow) Yellow Urine Clarity (Clear) Clear Urine pH (5-8) 6.0 Ur Specific Seffner (1.005-1.025) 1.015 Urine Protein (Negative) mg/dL Negative Urine Ketones (Negative) mg/dL Negative Urine Blood (Negative) Negative Urine Nitrite (Negative) Negative Urine Bilirubin (Negative) Negative Urine Urobilinogen (Up TO 0.2) EU/dL 0.2 Ur Leukocyte Esterase (Negative) Negative Urine Glucose (Negative) mg/dL Negative Salicylates (<2.8) mg/dL Acetaminophen (10-30) ug/mL Ethyl Alcohol (<10) mg/dL COVID-19 Source Nasal/Nares SARS-CoV-2 (PCR) (Negative) Negative ECG Data Attestation: I personally reviewed and interpreted this ECG (s) as follows: Interpretation: Please see official report by Dr. Hicks. Sinus rhythm, ventricular rate 97, prolonged QT interval. No STEMI HPI General Mode of arrival: ambulatory. Date/Time Provider Initiated Documentation: 02/06/22 08:33. Limitations to Documentation: no limitations. Information obtained by: patient. HPI Narrative: This is a 41-year-old gentleman, methadone dependent who did receive his dose this morning, ADD, alcohol induced psychotic disorder, anxiety, alcohol abuse, question of alcohol withdrawal seizure, presenting to the ER today for alcohol withdrawal, depression with SI. Patient was actually admitted to our facility on 01-25 through 02-02 for the same, subsequently discharged, began drinking right away and did not fill the Zyprexa but he was supposed to be prescribed. Patient reports drinking 1/2 gallon of vodka a day and a couple of beers but this is becoming increasingly difficult as he lives with his father and he needs to continue hiding this. He reports anxiety, feeling agitated, shaky, and he states that he heightened sense that he can see things that other people cannot. He denies recent illness or trauma. He does report self cutting with a razor blade. The cuts were superficial but he states that he knows if he went deeper he could have a larger vessel to kill himself. Related Data Home Medications Medication Instructions Recorded Confirmed methadone 5 mg/5 mL oral solution 130 mg PO DAILY ml 09/05/17 02/06/22 multivitamin 1 tab PO DAILY 08/15/21 02/03/22 folic acid 1 mg tablet 1 mg PO QAM #0 tab 11/14/21 02/03/22 thiamine mononitrate (vit B1) 100 100 mg PO QAM #0 tab 11/14/21 02/03/22 mg tablet (Vitamin B-1 (mononitrate)) fluoxetine 40 mg capsule 40 mg PO DAILY #30 cap 11/30/21 02/03/22 nicotine 14 mg/24 hr daily 14 mg TRANSDERMAL DAILY #0 ea 12/23/21 02/03/22 transdermal patch aspirin 81 mg tablet,delayed 81 mg PO DAILY #30 tab 02/02/22 02/03/22 release atorvastatin 20 mg tablet 20 mg PO QPM #30 tab 02/02/22 02/03/22 clonidine HCl 0.1 mg tablet 0.1 mg PO BID #60 tab 02/02/22 02/06/22 docusate sodium 100 mg capsule 100 mg PO BID #60 cap 02/02/22 02/03/22 (Colace) olanzapine 10 mg tablet 10 mg PO HS #30 tab 02/02/22 02/03/22 psyllium husk (aspartame) 3.4 See Rx Instructions .ROUTE 02/02/22 02/03/22 gram/5.8 gram oral powder .COMPLEX #0 g (Metamucil Sugar-Free (aspartame)) lisdexamfetamine 60 mg capsule 60 mg PO DAILY 02/06/22 02/06/22 (Vyvanse) Previous Rx's Medication Instructions Recorded folic acid 1 mg tablet 1 mg PO QAM #0 tab 11/14/21 thiamine mononitrate (vit B1) 100 100 mg PO QAM #0 tab 11/14/21 mg tablet (Vitamin B-1 (mononitrate)) fluoxetine 40 mg capsule 40 mg PO DAILY #30 cap 11/30/21 nicotine 14 mg/24 hr daily 14 mg TRANSDERMAL DAILY #0 ea 12/23/21 transdermal patch aspirin 81 mg tablet,delayed 81 mg PO DAILY #30 tab 02/02/22 release atorvastatin 20 mg tablet 20 mg PO QPM #30 tab 02/02/22 clonidine HCl 0.1 mg tablet 0.1 mg PO BID #60 tab 02/02/22 docusate sodium 100 mg capsule 100 mg PO BID #60 cap 02/02/22 (Colace) olanzapine 10 mg tablet 10 mg PO HS #30 tab 02/02/22 psyllium husk (aspartame) 3.4 See Rx Instructions .ROUTE 02/02/22 gram/5.8 gram oral powder .COMPLEX #0 g (Metamucil Sugar-Free (aspartame)) Allergies Allergy/AdvReac Type Severity Reaction Status Date / Time No Known Allergies Allergy Verified 02/03/22 08:09 General Stated Complaint: ETOHWithdr PACO: 2 Review of Systems Constitutional Constitutional: Denies fever(s) and Denies headache(s) Eyes Eyes: Denies change in vision ENT Ears, Nose, Mouth, and Throat: Denies headache(s) and Denies neck pain Cardiovascular Cardiovascular: Denies chest pain and Denies dyspnea Respiratory Respiratory: Denies dyspnea Gastrointestinal Gastrointestinal: Denies abdominal pain, Denies nausea and Denies vomiting Musculoskeletal Musculoskeletal: Denies neck pain, Denies numbness and Reports tingling Integumentary/Breasts Skin/Breast: Denies rash Neurologic Neurologic: Denies headache(s), Denies numbness and Reports tingling Psychiatric Psychiatric: Reports anxiety, Reports depression, Denies homicidal ideation and Reports suicidal ideation Hematologic/Lymphatic Hematologic/Lymphatic: Denies easy bleeding and Denies easy bruising PFSH All Active Problems (Updated 02/06/22 @ 11:13 by ESTRELLITA Soares) Hypertension (Chronic) ADD (attention deficit disorder) (Acute) HFrEF (heart failure with reduced ejection fraction) (Acute) Cardiomyopathy (Acute) Suicide attempt (Acute) 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 Meets with therapist twice monthly; has had take-home in the past. Alcohol abuse with withdrawal (Acute) Medical History Closed right ankle fracture (~09/2019) COVID Erectile dysfunction (10/03/17) Family history of diabetes mellitus (DM) (09/05/17) Gynecomastia, male (03/11/18) secondary to methadone Hyperglycemia (09/05/17) Hyperprolactinemia (04/15/18) Hypogonadism, male (03/24/18) Pending appt with Dr. Charles at [facility] in [place] Internal derangement of left knee QT prolongation Sprain of anterior cruciate ligament of left knee (~09/2019) Tobacco abuse (11/19/17) 1/2 ppd Family History Mother Diabetes Cancer thyroid cancer Father Diabetes Essential hypertension Paternal Grandfather No problems noted. Maternal Grandfather Stroke Paternal Uncle Cancer stomach cancer Social History Smoking/Tobacco Use Status: Current every day Tobacco Type: cigarettes Smoking risk assessment performed?: Yes Alcohol Intake: current Alcohol Intake frequency: 3 or more drinks per day Alcohol type: beer and hard liquor Drug use: Never Substance use type: does not use Details: normally drinks 1/2 gallon per 24 hours Household members: other Details: 3 other men in recovery. 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 Abrasions Resp Effort & Inspection: normal respiratory effort and able to speak in complete sentences Auscultation: clear to auscultation bilaterally Cardio Rate: tachycardic (117) Rhythm: regular rhythm GI Palpation: soft and nontender Back/Spine/Pelvis Back: No back tenderness Skin Rashes: no rashes Neuro General: patient alert, patient awake, moves all extremities and no focal motor deficits Cognition: normal cognition Speech: speech normal Gait: normal gait Motor: muscle tone normal throughout Sensory Exam: no sensory deficits noted Extrem General: full ROM and capillary refill normal Elbow/forearm/wrist images: 1. Abrasions 2. Abrasions Upper/lower leg/hip images: 1. Abrasion Psych Appearance: grossly normal Mental Status: mental status grossly normal Course Vital Signs Vital signs: Vital Signs Temperature 36.9 C 02/06/22 08:24 Pulse 130 H 02/06/22 08:24 Respiratory Rate 24 02/06/22 08:24 Blood Pressure 180/120 H 02/06/22 08:24 Pulse Oximetry 93 02/06/22 08:24 Temperature 36.9 C 02/06/22 08:24 Temperature Source Oral 02/06/22 08:24 Pulse 130 H 02/06/22 08:24 Pulse 91 H 02/06/22 09:30 Respiratory Rate 18 02/06/22 09:30 Respiratory Effort 02/06/22 08:45 Respiratory Pattern Normal 02/06/22 08:39 Blood Pressure 180/120 H 02/06/22 08:24 Blood Pressure Position Sitting 02/06/22 08:24 Pulse Oximetry 93 02/06/22 08:24 Oxygen Delivery Method Room Air 02/06/22 08:24 Oxygen Flow Rate 0 02/06/22 08:24 Pain Level 3 02/06/22 08:24 Lab/Test Results Lab/Test Results: Laboratory Tests Range/Units 02/06/22 02/06/22 02/06/22 09:05 09:05 09:05 WBC (4.4-10.8) 10^3/uL 8.31 RBC (4.36-5.78) 10^6/uL 4.12 L Hgb (13.5-17.5) g/dL 13.6 Hct (40.0-50.0) % 40.5 MCV (80-95) fL 98.3 H MCH (27.0-33.0) pg 33.0 MCHC (32.0-36.0) % 33.6 RDW (11.8-14.1) % 12.2 Plt Count (130-400) 10^3/uL 321 D MPV (8.0-11.0) fL 9.2 Immature Gran % 0.4 Neutrophils % 69.8 Lymphocytes % 22.0 Monocytes % 6.5 Eosinophils % 0.6 Basophils % 0.7 Nucleated RBC % % 0 Absolute Neutrophils (1.2-6.7) 10^3/uL 5.80 Absolute Lymphocytes (1.2-3.4) 10^3/uL 1.83 Absolute Monocytes (0.1-0.8) 10^3/uL 0.54 Absolute Eosinophils (0.0-0.7) 10^3/uL 0.05 Absolute Basophils (0.0-0.2) 10^3/uL 0.06 Sodium (136-145) mmol/L 138 Potassium (3.5-5.1) mmol/L 4.1 Chloride (98-107) mmol/L 102 Carbon Dioxide (21.0-32.0) mmol/L 29.4 Anion Gap (3-11) mmol/L 6.6 BUN (7-18) mg/dL 16 Creatinine (0.70-1.30) mg/dL 0.9 Estimated GFR/1.73 m2 (mL/min/1.73m2) >= 60.00 Glucose (74-106) mg/dL 95 Calcium (8.5-10.1) mg/dL 9.6 Magnesium (1.8-2.4) mg/dL Total Bilirubin (0.2-1.0) mg/dL 0.3 AST (15-37) U/L 34 ALT (16-63) U/L 92 H Alkaline Phosphatase (46-116) U/L 92 Troponin I (<or=60) ng/L < 50 Total Protein (6.4-8.2) g/dL 7.8 Albumin (3.4-5.0) g/dL 3.9 TSH (0.36-3.74) uIU/mL 1.31 Salicylates (<2.8) mg/dL 3.8 Acetaminophen (10-30) ug/mL < 2 Ethyl Alcohol (<10) mg/dL 56.8 H COVID-19 Source SARS-CoV-2 (PCR) (Negative) Range/Units 02/06/22 02/06/22 09:05 09:30 WBC (4.4-10.8) 10^3/uL RBC (4.36-5.78) 10^6/uL Hgb (13.5-17.5) g/dL Hct (40.0-50.0) % MCV (80-95) fL MCH (27.0-33.0) pg MCHC (32.0-36.0) % RDW (11.8-14.1) % Plt Count (130-400) 10^3/uL MPV (8.0-11.0) fL Immature Gran % Neutrophils % Lymphocytes % Monocytes % Eosinophils % Basophils % Nucleated RBC % % Absolute Neutrophils (1.2-6.7) 10^3/uL Absolute Lymphocytes (1.2-3.4) 10^3/uL Absolute Monocytes (0.1-0.8) 10^3/uL Absolute Eosinophils (0.0-0.7) 10^3/uL Absolute Basophils (0.0-0.2) 10^3/uL Sodium (136-145) mmol/L Potassium (3.5-5.1) mmol/L Chloride (98-107) mmol/L Carbon Dioxide (21.0-32.0) mmol/L Anion Gap (3-11) mmol/L BUN (7-18) mg/dL Creatinine (0.70-1.30) mg/dL Estimated GFR/1.73 m2 (mL/min/1.73m2) Glucose (74-106) mg/dL Calcium (8.5-10.1) mg/dL Magnesium (1.8-2.4) mg/dL 2.2 Total Bilirubin (0.2-1.0) mg/dL AST (15-37) U/L ALT (16-63) U/L Alkaline Phosphatase (46-116) U/L Troponin I (<or=60) ng/L Total Protein (6.4-8.2) g/dL Albumin (3.4-5.0) g/dL TSH (0.36-3.74) uIU/mL Salicylates (<2.8) mg/dL Acetaminophen (10-30) ug/mL Ethyl Alcohol (<10) mg/dL COVID-19 Source Nasal/Nares SARS-CoV-2 (PCR) (Negative) Negative Critical Care Time Critical Care Time Critical Care Time: Yes Total Critical Care Time: 35 Attestation: Upon my evaluation, this patient had a high probability of clinically significant, life-threatening deterioration due to their current medical conditions, which required my direct attention, intervention, and personal management. I have personally provided greater than 30 minutes of critical care time exclusive of the time spend on separately billable procedures. Time includes obtaining a history, examining the patient, pulse oximetry, review of laboratory data, radiology results, discussion with consultants, arranging urgent treatment with development of a management plan, evaluation of patient's response to treatment, and monitoring for potential decompensation. Interventions were performed as documented above. PAWSS Have you Been Recently Intoxicated or Drunk Within the Last 30 days?: Yes Have you Ever Experienced Previous Episodes of Alcohol Withdrawal?: Yes Have you ever Experienced Withdrawal Seizures?: Yes Have you ever Experienced Delirium Tremens(DT)s?: Yes Have you ever undergone Alcohol Rehabilitation Treatment (i.e, inpt ot outpatient treatment programs)?: Yes Have you ever Experienced Blackouts?: Yes Have you ever Combined Alcohol with other Downers within the last 90 days?: No Have you ever Combined Alcohol with any other Substance of Abuse during the last 90 days?: No Evidence of Increased Autonomic Activity (i.e. HR>120, tremor, sweating, agitation, nausea)?: Yes Result: 7
[2022-02-06 11:17] LABS: Bilirubin Negative (Negative); Blood Negative (Negative); Clarity Clear (Clear); Glucose Negative (Negative); Ketones Negative (Negative); Leukocyte Esterase Negative (Negative); Nitrite Negative (Negative); Specific Gravity 1.015 (1.005-1.025); Urobilinogen 0.2 EU/dL (Up TO 0.2)
[2022-02-06 11:27] LABS: *AMPHETAMINES SCREEN URINE Positive (Negative); *BARBITURATES SCREEN URINE Negative (Negative); *BENZODIAZEPINES SCREEN URINE Positive (Negative); Cannabinoids THC Negative (Negative); Cocaine Screen,Urine Negative (Negative); METHADONE URINE SCREEN Positive (Negative); OPIATES URINE SCREEN Negative (Negative)
[2022-02-06 11:30] LABS: Tricyclic Antidepressants Negative (Negative)
--- NOTE | 2022-02-06 11:30 | PDOC.MHCN_ITS ---
Date of service: 02/06/22 Time of Service: 11:30 Mental Health Crisis Note Presenting Issue How did you arrive at the ED and why did you come: Client presented at ED on his own due to concern he would attempt to by suicide. Client presented with cuts on both wrists and reports cutting himself last night and the night before. Client reports if he had not come to the hospital he would have tried to cut an artery. Client reports his anxiety is always at a 10 and that he cant handle the anxiety and begins to drink. Client report history of PTSD and anxiety. Precipitating Factors Client reports Fleeting thoughts of SI with plan to cut an artery. Client reports he does not want to act on thoughts but if he were to leave hospital he reports on a scaled of 0-10 a 9.5 on intent to act on thoughts. Disposition BEHAVIOR: Cooperative EYE CONTACT: Normal MOOD: Client reports better than it was when he arrived but feels hopeless. AFFECT: Congruent with mood. APPETITE: Not reported SLEEP(trouble falling/staying asleep: Not reported Plan Client is voluntarily seeking placement for a psychiatric in patient program, plan was consulted with ESTRELLITA Conde. Referrals will be sent to [facility], [facility], [facility], and [facility]. Client reports he does not want to go back to [facility]. Signature Clinician's Name/Title: Rigoberto Byrne BA
--- NOTE | 2022-02-06 12:43 | HPE_ITS ---
Date of service: 02/06/22 Time of Service: 12:43 Assessment and Plan Assessment and plan (1) ADD (attention deficit disorder): Status: Acute Assessment and plan: On Vyvanse. This could contribute to anxiety. Will discuss weaning down the dosage Qualifiers: Attention deficit-hyperactivity disorder type: predominantly hyperactive Hyperactivity presence: present Qualified Code(s): F90.1 - Attention-deficit hyperactivity disorder, predominantly hyperactive type (2) Cardiomyopathy: Status: Acute Assessment and plan: Echocardiogram during recent admission showed reduced EF. Now on ASA and atorvastatin. 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 Will continue QHS (4) Depression with suicidal ideation: Status: Acute Assessment and plan: Superficial cutting prior to this admission; no real suicide attempt. Cont Fluoxetin. Psych consult when medically stable; after withdrawal complete. (5) Anxiety: Status: Chronic Assessment and plan: Currently on scheduled Ativan with prn dosing for CIWA scoring. (6) Hypertension: Status: Chronic Assessment and plan: Not on antihypertensive medication. monitor Qualifiers: Hypertension type: essential hypertension Qualified Code(s): I10 - Essential (primary) hypertension (7) Methadone dependence: Status: Chronic Assessment and plan: Cont methadone. (8) Alcohol abuse with withdrawal: Status: Acute Assessment and plan: Just released from [facility] on 02/04 after hospitalization for withdrawal. Since discharge he has been drinking heavily. CIWA monitoring with ativan protocol. Daily thiamine, folate, MVI Multiple admissions last year for withdrawal. He endorses desire for inpatient treatment. History of Present Illness History of Present Illness Chief Complaint: Alcohol withdrawal, depression with suicidal ideations w/o a plan. Narrative: This is a 41 year old male with multiple previous admissions for alcohol withdrawal, most recently d/'d from [facility] on 02/02/22. He has a h/o alcohol abuse, polysubstance abuse, on methadone, ADHD, anxiety and depression, alcoholic cardiomyopathy. He presented to the ED withdrawing from alcohol c/o depression and SI. When he was discharged on 02/02/22 he began drinking again, endorsing intake of 1/2 gallon of vodka and a couple of beers daily. He chiefly c/o being in a high anxiety state. ED evaluation: Vital Signs C Temperature ?36.9 C ?04/13/22 08:24 Pulse ?130 H ?02/06/22 08:24 Respiratory Rate ?24 ?02/06/22 08:24 Blood Pressure ?180/120 H ?02/06/22 08:24 Pulse Oximetry ?93 ?02/06/22 08:24 WBC normal. Hgb 13.6. Lytes normal., Creatinine 0.9. Bili 0.3. AST 34, ALT 92. Troponin neg. Alcohol 56.8. COVID negative. CIWA protocol initiated; score of 22 initially. He was administered his scheduled methadone. Also received IV ativan and po librium. A banana bag also initiated. He was admitted on benzodiazapine withdrawal protocol. 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 Meets with therapist twice monthly; has had take-home in the past. Alcohol abuse with withdrawal (Acute) Medical History Closed right ankle fracture (~09/2019) COVID Erectile dysfunction (10/03/17) Family history of diabetes mellitus (DM) (09/05/17) Gynecomastia, male (03/11/18) secondary to methadone Hyperglycemia (09/05/17) Hyperprolactinemia (04/15/18) Hypogonadism, male (03/24/18) Pending appt with Dr. Charles at [facility] in [place] Internal derangement of left knee QT prolongation Sprain of anterior cruciate ligament of left knee (~09/2019) Tobacco abuse (11/19/17) 1/2 ppd Family History Mother Diabetes Cancer thyroid cancer Father Diabetes Essential hypertension Paternal Grandfather No problems noted. Maternal Grandfather Stroke Paternal Uncle Cancer stomach cancer Social History Smoking/Tobacco Use Status: Current every day Tobacco Type: cigarettes Smoking risk assessment performed?: Yes Alcohol Intake: current Alcohol Intake frequency: 3 or more drinks per day Alcohol type: beer and hard liquor Drug use: Never Substance use type: does not use Details: normally drinks 1/2 gallon per 24 hours Household members: other Details: 3 other men in recovery. Housing: other Details: living in supported program for alcohol dependence Number of Children: 1 Education Level: high school current occupation: [employer] Current gender identity: male Do you feel safe at home: Yes Do you feel safe in your relationship?: Yes Meds Allergies and Home Medications Allergies Allergy/AdvReac Type Severity Reaction Status Date / Time No Known Allergies Allergy Verified 02/03/22 08:09 Home Medications Medication Instructions Recorded Confirmed Type methadone 5 mg/5 mL oral solution 130 mg PO DAILY ml 09/05/17 02/06/22 History multivitamin 1 tab PO DAILY 08/15/21 02/06/22 History folic acid 1 mg tablet 1 mg PO QAM #0 tab 11/14/21 02/06/22 Rx thiamine mononitrate (vit B1) 100 100 mg PO QAM #0 tab 11/14/21 02/06/22 Rx mg tablet (Vitamin B-1 (mononitrate)) fluoxetine 40 mg capsule 40 mg PO DAILY #30 cap 11/30/21 02/06/22 Rx aspirin 81 mg tablet,delayed 81 mg PO DAILY #30 tab 02/02/22 02/06/22 Rx release atorvastatin 20 mg tablet 20 mg PO QPM #30 tab 02/02/22 02/06/22 Rx clonidine HCl 0.1 mg tablet 0.1 mg PO BID #60 tab 02/02/22 02/06/22 Rx docusate sodium 100 mg capsule 100 mg PO BID #60 cap 02/02/22 02/06/22 Rx (Colace) olanzapine 10 mg tablet 10 mg PO HS #30 tab 02/02/22 02/06/22 Rx psyllium husk (aspartame) 3.4 See Rx Instructions .ROUTE 02/02/22 02/06/22 Rx gram/5.8 gram oral powder .COMPLEX #0 g (Metamucil Sugar-Free (aspartame)) lisdexamfetamine 60 mg capsule 60 mg PO DAILY 02/06/22 02/06/22 History (Vyvanse) Exam Narrative Exam Narrative: Very anxious, talkative male. Const General: cooperative and no acute distress Orientation: alert and oriented x3 Eyes General: appearance normal, both eyes and all related structures Sclera: sclerae normal Resp Effort & Inspection: normal respiratory effort Auscultation: clear to auscultation bilaterally Cardio Rate: tachycardic Rhythm: regular rhythm Heart Sounds: S1 normal and S2 normal GI Palpation: soft, not rigid and nontender Skin Full body images: 1. superficial laceration/abrasion 2. : 3. 4. 5. 6. Extrem General: no pedal edema and no calf tenderness Psych Appearance: grossly normal Speech and Movement: speech and movement normal Mood: anxious mood Affect: animated and anxious affect Results Labs Result diagrams: 02/06/22 09:05 02/06/22 09:05 Labs: Laboratory Results - last 24 hr 02/06/22 02/06/22 02/06/22 09:05 09:05 09:05 WBC 8.31 RBC 4.12 L Hgb 13.6 Hct 40.5 MCV 98.3 H MCH 33.0 MCHC 33.6 RDW 12.2 Plt Count 321 D MPV 9.2 Immature Gran % 0.4 Neutrophils % 69.8 Lymphocytes % 22.0 Monocytes % 6.5 Eosinophils % 0.6 Basophils % 0.7 Nucleated RBC % 0 Absolute Neutrophils 5.80 Absolute Lymphocytes 1.83 Absolute Monocytes 0.54 Absolute Eosinophils 0.05 Absolute Basophils 0.06 Sodium 138 Potassium 4.1 Chloride 102 Carbon Dioxide 29.4 Anion Gap 6.6 BUN 16 Creatinine 0.9 Estimated GFR/1.73 m2 >= 60.00 Glucose 95 Calcium 9.6 Magnesium Total Bilirubin 0.3 AST 34 ALT 92 H Alkaline Phosphatase 92 Troponin I < 50 Total Protein 7.8 Albumin 3.9 TSH 1.31 Urine Color Urine Clarity Urine pH Ur Specific [place] Urine Protein Urine Ketones Urine Blood Urine Nitrite Urine Bilirubin Urine Urobilinogen Ur Leukocyte Esterase Urine Glucose Salicylates 3.8 Urine Opiates Screen Urine Methadone Screen Acetaminophen < 2 Ur Barbiturates Screen Ur Tricyclics Screen Ur Amphetamines Screen U Benzodiazepines Scrn Urine Cocaine Screen Ur THC Screen Ethyl Alcohol 56.8 H COVID-19 Source SARS-CoV-2 (PCR) 02/06/22 02/06/22 02/06/22 09:05 09:30 11:05 WBC RBC Hgb Hct MCV MCH MCHC RDW Plt Count MPV Immature Gran % Neutrophils % Lymphocytes % Monocytes % Eosinophils % Basophils % Nucleated RBC % Absolute Neutrophils Absolute Lymphocytes Absolute Monocytes Absolute Eosinophils Absolute Basophils Sodium Potassium Chloride Carbon Dioxide Anion Gap BUN Creatinine Estimated GFR/1.73 m2 Glucose Calcium Magnesium 2.2 Total Bilirubin AST ALT Alkaline Phosphatase Troponin I Total Protein Albumin TSH Urine Color Urine Clarity Urine pH Ur Specific [place] Urine Protein Urine Ketones Urine Blood Urine Nitrite Urine Bilirubin Urine Urobilinogen Ur Leukocyte Esterase Urine Glucose Salicylates Urine Opiates Screen Negative Urine Methadone Screen Positive A Acetaminophen Ur Barbiturates Screen Negative Ur Tricyclics Screen Negative Ur Amphetamines Screen Positive A U Benzodiazepines Scrn Positive A Urine Cocaine Screen Negative Ur THC Screen Negative Ethyl Alcohol COVID-19 Source Nasal/Nares SARS-CoV-2 (PCR) Negative 02/06/22 11:05 WBC RBC Hgb Hct MCV MCH MCHC RDW Plt Count MPV Immature Gran % Neutrophils % Lymphocytes % Monocytes % Eosinophils % Basophils % Nucleated RBC % Absolute Neutrophils Absolute Lymphocytes Absolute Monocytes Absolute Eosinophils Absolute Basophils Sodium Potassium Chloride Carbon Dioxide Anion Gap BUN Creatinine Estimated GFR/1.73 m2 Glucose Calcium Magnesium Total Bilirubin AST ALT Alkaline Phosphatase Troponin I Total Protein Albumin TSH Urine Color Yellow Urine Clarity Clear Urine pH 6.0 Ur Specific [place] 1.015 Urine Protein Negative Urine Ketones Negative Urine Blood Negative Urine Nitrite Negative Urine Bilirubin Negative Urine Urobilinogen 0.2 Ur Leukocyte Esterase Negative Urine Glucose Negative Salicylates Urine Opiates Screen Urine Methadone Screen Acetaminophen Ur Barbiturates Screen Ur Tricyclics Screen Ur Amphetamines Screen U Benzodiazepines Scrn Urine Cocaine Screen Ur THC Screen Ethyl Alcohol COVID-19 Source SARS-CoV-2 (PCR) Last Vital Signs Temp 35.7 C L 02/06/22 12:19 Pulse 100 H 02/06/22 12:19 Resp 18 02/06/22 12:27 BP 127/102 H 02/06/22 12:19 Pulse Ox 99 02/06/22 12:27 PAWSS Have you Been Recently Intoxicated or Drunk Within the Last 30 days?: Yes Have you Ever Experienced Previous Episodes of Alcohol Withdrawal?: Yes Have you ever Experienced Withdrawal Seizures?: Yes Have you ever Experienced Delirium Tremens(DT)s?: Yes Have you ever undergone Alcohol Rehabilitation Treatment (i.e, inpt ot outpatient treatment programs)?: Yes Have you ever Experienced Blackouts?: Yes Have you ever Combined Alcohol with other Downers within the last 90 days?: No Have you ever Combined Alcohol with any other Substance of Abuse during the last 90 days?: No Evidence of Increased Autonomic Activity (i.e. HR>120, tremor, sweating, agitation, nausea)?: Yes Result: 7
[2022-02-06] MEDS: LORazepam 1 MG TAB PO/SL ×2 (12:53→19:55)
[2022-02-06] MEDS: Nicotine 21 MG/24 HR PATCH TD (12:58)
[2022-02-06] MEDS: Enoxaparin 40 MG/0.4 ML SYR SC (12:59)
[2022-02-06] MEDS: cloNIDine 0.1 MG TAB PO (19:55)
[2022-02-06] MEDS: Atorvastatin 20 MG TAB PO (19:56)
[2022-02-06] MEDS: Nicotine 2 MG LOZG SUC (20:08)
[2022-02-06] MEDS: Melatonin 3 MG TAB 6 MG PO (22:18)
[2022-02-06] MEDS: OLANZapine 10 MG TAB PO (22:18)
[2022-02-07] VITALS (30 sets, daily range): BP systolic 104–142; BP diastolic 61–81; PULSE 58–86; RESP 6–21; TEMP 35.8–36.9; O2SAT 91–98
--- NOTE | 2022-02-07 06:41 | NUR.NOTE ---
Nursing Note: Recieved a phone call from Ms Chantel GU enquiring about the patient on 02/06/22 at 21:15. Staff will call to talk with patient today.
[2022-02-07 07:12] LABS: ALT 73 U/L (16-63); AST 28 U/L (15-37); Alkaline Phosphatase 82 U/L (46-116); Anion Gap 6.6 mmol/L (3-11); BUN 19 mg/dL (7-18); Bilirubin, Total 0.2 mg/dL (0.2-1.0); CO2 29.4 mmol/L (21.0-32.0); CREATININE 0.7 mg/dL (0.70-1.30); Calcium 8.9 mg/dL (8.5-10.1); Chloride 105 mmol/L (98-107); Glucose 116 mg/dL (74-106); Potassium 4.1 mmol/L (3.5-5.1); Sodium 141 mmol/L (136-145); Total Protein 6.5 g/dL (6.4-8.2)
--- NOTE | 2022-02-07 09:11 | W.PM.PROGNOT ---
Date of Service Date of service: 02/07/22 Time of Service: 12:00 Assessment and Plan Assessment and plan (1) Suicide attempt: Status: Acute Assessment and plan: CPSO order in palce, one to one at bedside will continue Fluoxetine and Zyprexa home regimen (2) Depression with suicidal ideation: Status: Acute Assessment and plan: Will continue as above ( CPSO) will continue Fluoxetine and Zyprexa home regimen (3) Anxiety: Status: Chronic Assessment and plan: Will continue PRN Lorazepam, and Fluoxetine and Zyprexa home regimen (4) ADD (attention deficit disorder): Status: Acute Assessment and plan: Will continue Vyvanse (home meds) Qualifiers: Attention deficit-hyperactivity disorder type: predominantly hyperactive Hyperactivity presence: present Qualified Code(s): F90.1 - Attention-deficit hyperactivity disorder, predominantly hyperactive type (5) Methadone dependence: Status: Chronic Assessment and plan: Will continue methadone outpatient dose (6) Hypertension: Status: Chronic Assessment and plan: Will continue Clonidine home regimen Qualifiers: Hypertension type: essential hypertension Qualified Code(s): I10 - Essential (primary) hypertension (7) Alcohol abuse with withdrawal: Status: Acute Assessment and plan: CIWA in progress, scoring 14 to 17 Will continue the benzodiazepine protocol for ETOH withdrawal Will continue Chlordiazepoxide scheduled (8) Pain: Status: Acute Assessment and plan: Will continue Acetaminophen PRN (9) DVT prophylaxis: Status: Acute Assessment and plan: Enoxaparin ordered (10) Discharge planning issues: Status: Acute Assessment and plan: Patient wants to rehab for anxiety and depression; CM involved and will make referrals when medically cleared. Subjective Subjective Patient reports: no new complaints, still having pain (headache mild agrees to have Acetaminophen), tolerating a regular diet, voiding w/o difficulty and flatus; denies diarrhea, nausea, vomiting, shortness of breath, afebrile or fever Exam Narrative Exam Narrative: Very anxious, talkative male. Const General: cooperative and no acute distress Orientation: alert and oriented x3 HENMT Head: normal to inspection, normocephalic and atraumatic Eyes General: appearance normal, both eyes and all related structures Alignment and Position: alignment normal and position normal Sclera: sclerae normal Neck Neck: normal visual inspection and full ROM Chest Chest: normal inspection of the chest Resp Effort & Inspection: normal respiratory effort, able to speak in complete sentences and normal respiratory pattern Auscultation: clear to auscultation bilaterally Cardio Rate: regular rate and tachycardic Rhythm: regular rhythm Heart Sounds: S1 normal and S2 normal GI Palpation: soft, no guarding, not rigid, nontender and No ascites Skin General skin exam: no rashes or lesions noted Neuro General: patient alert, patient oriented x3, tone normal, no focal motor deficits and CN's II-XI intact bilaterally Cognition: normal cognition Speech: speech normal Extrem General: no pedal edema and no calf tenderness Psych Appearance: grossly normal Speech and Movement: speech and movement normal Mood: anxious mood Affect: animated and anxious affect Attitude: cooperative Objective Last Vital Signs Temp 96.4 F L 02/07/22 04:30 Pulse 66 02/07/22 02:01 Resp 14 02/07/22 07:00 BP 113/75 02/07/22 02:01 Pulse Ox 95 02/07/22 07:30 Laboratory Results - last 24 hr 02/06/22 02/06/22 02/06/22 09:05 09:05 09:05 WBC 8.31 RBC 4.12 L Hgb 13.6 Hct 40.5 MCV 98.3 H MCH 33.0 MCHC 33.6 RDW 12.2 Plt Count 321 D MPV 9.2 Immature Gran % 0.4 Neutrophils % 69.8 Lymphocytes % 22.0 Monocytes % 6.5 Eosinophils % 0.6 Basophils % 0.7 Nucleated RBC % 0 Absolute Neutrophils 5.80 Absolute Lymphocytes 1.83 Absolute Monocytes 0.54 Absolute Eosinophils 0.05 Absolute Basophils 0.06 Sodium 138 Potassium 4.1 Chloride 102 Carbon Dioxide 29.4 Anion Gap 6.6 BUN 16 Creatinine 0.9 Estimated GFR/1.73 m2 >= 60.00 Glucose 95 Calcium 9.6 Magnesium Total Bilirubin 0.3 AST 34 ALT 92 H Alkaline Phosphatase 92 Troponin I < 50 Total Protein 7.8 Albumin 3.9 TSH 1.31 Urine Color Urine Clarity Urine pH Ur Specific [place] Urine Protein Urine Ketones Urine Blood Urine Nitrite Urine Bilirubin Urine Urobilinogen Ur Leukocyte Esterase Urine Glucose Salicylates 3.8 Urine Opiates Screen Urine Methadone Screen Acetaminophen < 2 Ur Barbiturates Screen Ur Tricyclics Screen Ur Amphetamines Screen U Benzodiazepines Scrn Urine Cocaine Screen Ur THC Screen Ethyl Alcohol 56.8 H COVID-19 Source SARS-CoV-2 (PCR) 04/13/22 04/13/22 04/13/22 09:05 09:30 11:05 WBC RBC Hgb Hct MCV MCH MCHC RDW Plt Count MPV Immature Gran % Neutrophils % Lymphocytes % Monocytes % Eosinophils % Basophils % Nucleated RBC % Absolute Neutrophils Absolute Lymphocytes Absolute Monocytes Absolute Eosinophils Absolute Basophils Sodium Potassium Chloride Carbon Dioxide Anion Gap BUN Creatinine Estimated GFR/1.73 m2 Glucose Calcium Magnesium 2.2 Total Bilirubin AST ALT Alkaline Phosphatase Troponin I Total Protein Albumin TSH Urine Color Urine Clarity Urine pH Ur Specific [place] Urine Protein Urine Ketones Urine Blood Urine Nitrite Urine Bilirubin Urine Urobilinogen Ur Leukocyte Esterase Urine Glucose Salicylates Urine Opiates Screen Negative Urine Methadone Screen Positive A Acetaminophen Ur Barbiturates Screen Negative Ur Tricyclics Screen Negative Ur Amphetamines Screen Positive A U Benzodiazepines Scrn Positive A Urine Cocaine Screen Negative Ur THC Screen Negative Ethyl Alcohol COVID-19 Source Nasal/Nares SARS-CoV-2 (PCR) Negative 02/06/22 02/07/22 11:05 06:35 WBC RBC Hgb Hct MCV MCH MCHC RDW Plt Count MPV Immature Gran % Neutrophils % Lymphocytes % Monocytes % Eosinophils % Basophils % Nucleated RBC % Absolute Neutrophils Absolute Lymphocytes Absolute Monocytes Absolute Eosinophils Absolute Basophils Sodium 141 Potassium 4.1 Chloride 105 Carbon Dioxide 29.4 Anion Gap 6.6 BUN 19 H Creatinine 0.7 Estimated GFR/1.73 m2 >= 60.00 Glucose 116 H Calcium 8.9 Magnesium Total Bilirubin 0.2 AST 28 ALT 73 H Alkaline Phosphatase 82 Troponin I Total Protein 6.5 Albumin 3.0 L TSH Urine Color Yellow Urine Clarity Clear Urine pH 6.0 Ur Specific [place] 1.015 Urine Protein Negative Urine Ketones Negative Urine Blood Negative Urine Nitrite Negative Urine Bilirubin Negative Urine Urobilinogen 0.2 Ur Leukocyte Esterase Negative Urine Glucose Negative Salicylates Urine Opiates Screen Urine Methadone Screen Acetaminophen Ur Barbiturates Screen Ur Tricyclics Screen Ur Amphetamines Screen U Benzodiazepines Scrn Urine Cocaine Screen Ur THC Screen Ethyl Alcohol COVID-19 Source SARS-CoV-2 (PCR) PAWSS Have you Been Recently Intoxicated or Drunk Within the Last 30 days?: Yes Have you Ever Experienced Previous Episodes of Alcohol Withdrawal?: Yes Have you ever Experienced Withdrawal Seizures?: Yes Have you ever Experienced Delirium Tremens(DT)s?: Yes Have you ever undergone Alcohol Rehabilitation Treatment (i.e, inpt ot outpatient treatment programs)?: Yes Have you ever Experienced Blackouts?: Yes Have you ever Combined Alcohol with other Downers within the last 90 days?: No Have you ever Combined Alcohol with any other Substance of Abuse during the last 90 days?: No Evidence of Increased Autonomic Activity (i.e. HR>120, tremor, sweating, agitation, nausea)?: Yes Result: 7
[2022-02-07] MEDS: Methadone Liquid 10 MG/ML 130 MG PO (09:40)
[2022-02-07] MEDS: Aspirin E.C. 81 MG TABEC PO (09:41)
[2022-02-07] MEDS: LORazepam 1 MG TAB PO (09:41)
[2022-02-07] MEDS: Docusate Sodium 100 MG CAP PO (09:41)
[2022-02-07] MEDS: Thiamine 100 MG TAB PO (09:41)
[2022-02-07] MEDS: cloNIDine 0.1 MG TAB PO ×2 (09:42→21:40)
[2022-02-07] MEDS: Folic Acid 1 MG TAB PO (09:42)
[2022-02-07] MEDS: Multivitamin TAB 1 TAB PO (09:42)
[2022-02-07] MEDS: FLUoxetine 20 MG CAP 40 MG PO (09:42)
[2022-02-07] MEDS: LORazepam 2 MG/ML VIAL IVP ×2 (11:39→15:15)
[2022-02-07] MEDS: Enoxaparin 40 MG/0.4 ML SYR SC (11:40)
[2022-02-07] MEDS: Normal Saline Flush 10 ML SYR ×2 (11:41→15:15)
[2022-02-07] MEDS: Nicotine 21 MG/24 HR PATCH TD (11:41)
[2022-02-07] MEDS: Acetaminophen 325 MG TAB PO (15:15)
--- NOTE | 2022-02-07 15:34 | CMPROGNOTE_ITS ---
- If Service Date Differs Date of service: 02/07/22 Time of Service: 15:34 Care Management Progress Note S/O: Dangelo was sleeping when CM attempted to meet with him, and per RN, CM was asked not to wake him up, as he had just fallen asleep. Per report, he is scoring on CIWA (14 this morning), therefore he has not been medically cleared, and he will not be screened by [facility] today. Once he has been medically cleared, voluntary inpatient psychiatric placement will be sought. He reported to his RN that he has had a positive experience at [facility], and would like to return. CM will continue to follow. A: Dangelo is a 41 year old male admitted to [facility] on 02/06/22 for alcohol withdrawal. P: Dangelo is currently withdrawing from alcohol use and is not yet medically cleared. Once he becomes medically cleared, he will be screened by [facility] to determine if he will meet criteria for inpatient psychiatric stabilization. His transport will depend on disposition. He will follow up with his PCP and discharge plan of care. CM will continue to follow. - Status Status: Interim - Reason for Wait Reason for Wait: Medical Clearance
[2022-02-07] MEDS: Normal Saline Flush 10 ML SYR IVP (21:39)
[2022-02-07] MEDS: Nicotine 2 MG LOZG SUC (21:39)
[2022-02-07] MEDS: Atorvastatin 20 MG TAB PO (21:39)
[2022-02-07] MEDS: Melatonin 3 MG TAB 6 MG PO (21:40)
[2022-02-07] MEDS: OLANZapine 10 MG TAB PO (21:40)
[2022-02-07] MEDS: LORazepam 1 MG TAB PO/SL (21:40)
[2022-02-08] VITALS (128 sets, daily range): BP systolic 109–139; BP diastolic 57–108; PULSE 54–101; RESP 3–26; TEMP 36.2–36.7; O2SAT 87–100
[2022-02-08 09:11] LABS: Anion Gap 7.5 mmol/L (3-11); BUN 21 mg/dL (7-18); CO2 27.5 mmol/L (21.0-32.0); CREATININE 0.7 mg/dL (0.70-1.30); Calcium 9.3 mg/dL (8.5-10.1); Chloride 104 mmol/L (98-107); Glucose 132 mg/dL (74-106); Potassium 4.8 mmol/L (3.5-5.1); Sodium 139 mmol/L (136-145)
[2022-02-08] MEDS: Methadone Liquid 10 MG/ML 130 MG PO (09:12)
[2022-02-08] MEDS: Lisdexamphetamine 40 MG CAP PO (09:13)
[2022-02-08] MEDS: Acetaminophen 325 MG TAB PO ×2 (09:14→17:10)
[2022-02-08] MEDS: Multivitamin TAB 1 TAB PO (09:14)
[2022-02-08] MEDS: Docusate Sodium 100 MG CAP PO ×2 (09:14→20:28)
[2022-02-08] MEDS: FLUoxetine 20 MG CAP 40 MG PO (09:14)
[2022-02-08] MEDS: Folic Acid 1 MG TAB PO (09:15)
[2022-02-08] MEDS: LORazepam 2 MG/ML VIAL IVP (09:15)
[2022-02-08] MEDS: Thiamine 100 MG TAB PO (09:15)
[2022-02-08] MEDS: LORazepam 1 MG TAB PO ×2 (09:15→20:28)
[2022-02-08] MEDS: Normal Saline Flush 10 ML SYR IVP (09:18)
[2022-02-08] MEDS: Aspirin E.C. 81 MG TABEC PO (10:06)
[2022-02-08] MEDS: cloNIDine 0.1 MG TAB PO ×2 (10:06→20:28)
--- NOTE | 2022-02-08 11:19 | PDOC.CMPRO ---
- If Service Date Differs Date of service: 02/08/22 Time of Service: 11:19 Care Management Progress Note S/O: Per MD, Dangelo has been medically cleared today and is ready to be assessed by [facility]. He was assessed by Shantel, who reported that he is agreeable to voluntary inpatient treatment. Referrals were sent and he was accepted at [facility]) today. GLORIA spoke to [facility], , who stated that he would need to agree that he would not have Vyvance, and that his Methadone dose may change. GLORIA and Shantel, [facility] spoke to him about this, and he was agreeable. GLORIA provided this information to an RN, to relay in the RN to RN which RR was expecting. His RN was not able to complete the RN to RN, and chose to give the bed to a patient in their ED. They stated that they would consider him for admission tomorrow. CM called [facility] and asked that the referral process be restarted, and continue to be followed up on, as he no longer had a bed offer at for today. CM talked to Dangelo's father, Andrey, who does not feel that visitation would be helpful to Dangelo at this time, but they would continue to stay in contact via phone. CM will continue to follow. A: Dangelo is a 41 year old male admitted to [facility] on 02/06/22 for alcohol withdrawal. P: Dangelo is voluntary for inpatient psychiatric placement. He will be screened daily by [facility], who will assist in finding inpatient psychiatric placement. He will likely transport via [facility]. He will follow up with his PCP and discharge plan of care. CM will continue to follow. - Status Status: Voluntary - Reason for Wait Reason for Wait: Inpatient Admission
--- NOTE | 2022-02-08 11:22 | PDOC.CMSAFE ---
- If Service Date Differs Date of service: 02/08/22 Time of Service: 11:24 Care Management Safety Plan Status: Voluntary - Reason for Wait Reason for Wait: Inpatient Admission VOLUNTARY FOR INPATIENT PSYCHIATRIC STABILIZATION. Patient is appropriate in all interactions since arriving at [facility]; Pt has demonstrated appropriate coping and communication skills, has articulated his or her needs and concerns and is fully engaged during staff interactions. Safety plan has been established with patient, and care team, to adhere to patient goals, identify restrictions based on behavioral status, address nutrition, and determine allowed personal belongings, tools for hygiene and personal care. Determine level of activity including ambulation, level of supervision, visitors, and determine privileges based on behaviors and level of engagement by pt. SAFETY PLAN: 1. Will remain on suicide precautions. In Paper Clothes 2. Will remain in room under direct supervision of one-on-one staff at all times provided by [employer]; JAYDEN, SOFTWARE SALES REPRESENTATIVE rooms director. 3. May have paper cups, plates, finger foods as well as a cardboard spoon with which to eat meals. 4. Follow [facility] Management of the Admitted Behavioral Health Patient policy. 5. Comfort bath system only, shower permitted with escort at RN discretion. 6. No personal belongings-soft items permitted at RN discretion. 7. Visitors-none at this time. 8. Activities: soft cart items approved per RN discretion. 9. Bathroom privileges with escort in the ED, available in room without limitation on M/S. 10. Phone: incoming/outgoing calls, via cordless phone at RN discretion. 11. Due to VOLUNTARY status, if patient wishes to leave [facility], staff will contact [facility] Crisis Screener ([phone]) and On-Call Mail Technician ([phone]) as soon as possible. In the event of elopement, notify [facility] Police ([phone]). Patient is currently voluntarily at [facility] and seeking inpatient admission when a bed becomes available. [facility] Frontline Apprentice Pattern Maker will continue seeking placement. Please contact the Stove Carriage Operator Mail Technician ([phone]) and [facility] Apprentice Pattern Maker ([phone]) for any needed changes in the Safety Plan. Safety plan has been provided to interdepartmental care team.
[2022-02-08] MEDS: LORazepam 1 MG TAB PO/SL ×3 (12:25→21:53)
[2022-02-08] MEDS: Enoxaparin 40 MG/0.4 ML SYR SC (12:26)
--- NOTE | 2022-02-08 13:56 | W.PM.DS.N ---
Date of service: 02/08/22 Time of Service: 13:57 DS: Diagnosis Discharge Diagnosis (1) Suicide attempt: Status: Acute (2) Depression with suicidal ideation: Status: Acute (3) Anxiety: Status: Chronic (4) ADD (attention deficit disorder): Status: Acute (5) Methadone dependence: Status: Chronic (6) Hypertension: Status: Chronic (7) Alcohol abuse with withdrawal: Status: Acute (8) Pain: Status: Acute (9) DVT prophylaxis: Status: Acute (10) Discharge planning issues: Status: Acute Discharge Plan Disposition Patient Disposition: [place] [facility] Condition: Improving Discharge Details Reason For Visit: Alcohol Withdrawl Admit Date/Time: 02/06/22 10:16 Admit Provider: Eugene Rogers Attending Provider: Eugene Rogers Primary Care Provider: Sophia Kelsey Hospital Course Hospital Course: This is a 41 year old male with multiple previous admissions for alcohol withdrawal, most recently d/'d from [facility] on 02/02/22.? He has a h/o alcohol abuse, polysubstance abuse, on methadone, ADHD, anxiety and depression, alcoholic cardiomyopathy. He presented to the ED withdrawing from alcohol c/o depression and SI.? When he was discharged on 02/02/22 he began drinking again, endorsing intake of 1/2 gallon of vodka and a couple of beers daily.? He chiefly c/o being in a high anxiety state.?He had multiple self-inflicted superficial cuts on his extremities; no recurrent history of cutting. ED evaluation:??Vital Signs Temperature? ?36.9 C? ?02/06/22 08:24 Pulse? ?130 H? ?02/06/22 08:24 Respiratory Rate? ?24? ?02/06/22 08:24 Blood Pressure? ?180/120 H? ?02/06/22 08:24 Pulse Oximetry? ?93? ?02/06/22 08:24 WBC normal.? Hgb 13.6.? Lytes normal.,? Creatinine 0.9.? Bili 0.3. AST 34, ALT 92.? Troponin neg.? Alcohol 56.8.? COVID negative. CIWA protocol initiated; score of 22 initially.? He was administered his scheduled methadone.? Also received IV ativan and po librium.? A banana bag also initiated. He was admitted on benzodiazapine withdrawal protocol. His withdrawal was uneventful. No seizure ocurred. He is requesting inpatient psychiatric care for his depression and anxiety. Discharging to [facility] Home Meds and New Rx's Prescriptions: New melatonin 3 mg Tablet 6 mg PO HS Qty: 0 0RF Continued multivitamin Tablet 1 tab PO DAILY 0RF fluoxetine 40 mg capsule 40 mg PO DAILY Qty: 30 0RF Label Comments: Pt takes this medication daily in the morning. methadone 5 MG/5 ML solution 130 mg PO DAILY 0RF Label Comments: Patient states he got his dose yesterday. folic acid 1 mg Tablet 1 mg PO QAM Qty: 0 0RF thiamine mononitrate (vit B1) [Vitamin B-1 (mononitrate)] 100 mg Tablet 100 mg PO QAM Qty: 0 0RF Label Comments: Have not taken it for a long time. clonidine HCl 0.1 mg Tablet 0.1 mg PO BID Qty: 60 0RF atorvastatin 20 mg Tablet 20 mg PO QPM Qty: 30 0RF aspirin 81 mg Tablet,Delayed Release (Dr/Ec) 81 mg PO DAILY Qty: 30 0RF Metamucil Sugar-Free (aspart) 3.4 gram/5.8 gram Powder See Rx Instructions .ROUTE .COMPLEX Qty: 0 0RF Rx Instructions: 3.4 grams PO BID docusate sodium [Colace] 100 mg Capsule 100 mg PO BID Qty: 60 0RF olanzapine 10 mg Tablet 10 mg PO HS Qty: 30 0RF Discontinued Vyvanse 60 mg capsule 60 mg PO DAILY 0RF Label Comments: TAKE ONE CAPSULE BY MOUTH EVERY MORNING Discharge Instructions Stand Alone Forms: Nursing Discharge Form Activity:: Activity as Tolerated Diet:: As Tolerated DS: Summary Time Spent with Patient providing and/or coordinating discharge services: Greater than 30 minutes Status at Discharge Functional status at discharge: independent ambulation Overall status at discharge: patient is not back to baseline Mental Status: mental status grossly normal Speech and Movement: speech and movement normal Mood: anxious mood Affect: normal affect, animated and anxious affect Exam Narrative Exam Narrative: Very anxious, talkative male. Const General: cooperative and no acute distress Orientation: alert and oriented x3 Eyes General: appearance normal, both eyes and all related structures Sclera: sclerae normal Resp Effort & Inspection: normal respiratory effort Auscultation: clear to auscultation bilaterally Cardio Rate: tachycardic Rhythm: regular rhythm Heart Sounds: S1 normal and S2 normal GI Palpation: soft, not rigid and nontender Extrem General: no pedal edema and no calf tenderness Psych Appearance: grossly normal Mental Status: mental status grossly normal Speech and Movement: speech and movement normal Mood: anxious mood Affect: normal affect, animated and anxious affect DS: Data Vitals/I&O Vitals and I&O: Vital Signs Temperature 36.2 C L 02/08/22 09:00 Temperature Source Temporal Artery Scan 02/08/22 09:00 Pulse 75 02/08/22 12:31 Pulse 83 02/08/22 12:31 Respiratory Rate 14 02/08/22 12:31 Respiratory Effort Non-Labored 02/08/22 09:00 Respiratory Depth Normal 02/08/22 09:00 Respiratory Pattern Normal 02/08/22 09:00 Blood Pressure 109/81 02/08/22 12:31 Blood Pressure Mean 88 02/08/22 12:31 Blood Pressure Position Supine 02/08/22 09:00 Pulse Oximetry 94 02/08/22 12:31 Oxygen Delivery Method Room Air 02/08/22 09:00 Oxygen Flow Rate 0 02/08/22 09:00 Pain Level 3 02/08/22 09:14 Intake & Output 02/07/22 02/08/22 02/08/22 23:59 11:59 23:59 Intake Total 410 / 1670 900 / 900 Output Total 1025 / 2675 1999 Balance -615 / -1005 -1100 / -1100 Weight 72.8 kg Intake: IV Oral 400 / 1660 900 / 900 Output: Urine 1025 / 2675 1999 Other: Urine Color Yellow Yellow Urine Appearance Clear Clear Urine Odor Normal None Comment Per report. Has not urinated this shift. 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 Meets with therapist twice monthly; has had take-home in the past. Alcohol abuse with withdrawal (Acute) Medical History Closed right ankle fracture (~09/2019) COVID Erectile dysfunction (10/03/17) Family history of diabetes mellitus (DM) (09/05/17) Gynecomastia, male (03/11/18) secondary to methadone Hyperglycemia (09/05/17) Hyperprolactinemia (04/15/18) Hypogonadism, male (03/24/18) Pending appt with Dr. Charles at [facility] in [place] Internal derangement of left knee QT prolongation Sprain of anterior cruciate ligament of left knee (~09/2019) Tobacco abuse (11/19/17) 1/2 ppd Family History Mother Diabetes Cancer thyroid cancer Father Diabetes Essential hypertension Paternal Grandfather No problems noted. Maternal Grandfather Stroke Paternal Uncle Cancer stomach cancer Social History Smoking/Tobacco Use Status: Current every day Tobacco Type: cigarettes Smoking risk assessment performed?: Yes Alcohol Intake: current Alcohol Intake frequency: 3 or more drinks per day Alcohol type: beer and hard liquor Drug use: Never Substance use type: does not use Details: normally drinks 1/2 gallon per 24 hours Household members: other Details: 3 other men in recovery. 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
[2022-02-08] MEDS: Melatonin 3 MG TAB 6 MG PO (20:27)
[2022-02-08] MEDS: OLANZapine 10 MG TAB PO (20:27)
[2022-02-08] MEDS: Atorvastatin 20 MG TAB PO (20:28)
[2022-02-09] VITALS (96 sets, daily range): BP systolic 109–124; BP diastolic 60–77; PULSE 60–81; RESP 7–25; TEMP 36.4–37.1; O2SAT 97–98
--- NOTE | 2022-02-09 06:25 | NUR.NOTE ---
Nursing Note: Pt. woke up this morning anxious that we did not have his correct medications at the hospital. He was specifically concerned about Vivance and Clonidine. I pulled the medications early to show him that we had them in the hospital for him to take. These medications were administered early along with Ativan for an increasing CIWA score (See MAR and CIWA assessment).
[2022-02-09] MEDS: LORazepam 1 MG TAB PO/SL ×4 (06:33→18:37)
[2022-02-09] MEDS: cloNIDine 0.1 MG TAB PO ×2 (06:33→21:04)
[2022-02-09] MEDS: Lisdexamphetamine 40 MG CAP PO (06:33)
[2022-02-09] MEDS: Multivitamin TAB 1 TAB PO (08:40)
[2022-02-09] MEDS: Aspirin E.C. 81 MG TABEC PO (08:40)
[2022-02-09] MEDS: Folic Acid 1 MG TAB PO (08:42)
[2022-02-09] MEDS: LORazepam 1 MG TAB PO ×3 (08:42→21:04)
[2022-02-09] MEDS: FLUoxetine 20 MG CAP 40 MG PO (08:44)
[2022-02-09] MEDS: Methadone Liquid 10 MG/ML 130 MG PO (08:45)
[2022-02-09] MEDS: Thiamine 100 MG TAB PO (08:45)
[2022-02-09] MEDS: Ondansetron 4 MG/2 ML VIAL IVP ×2 (08:47→12:23)
[2022-02-09] MEDS: Normal Saline Flush 10 ML SYR IVP ×2 (08:59→12:23)
[2022-02-09] MEDS: Enoxaparin 40 MG/0.4 ML SYR SC (12:23)
[2022-02-09] MEDS: Nicotine 2 MG LOZG SUC (14:05)
[2022-02-09] MEDS: Nicotine 21 MG/24 HR PATCH TD (14:05)
--- NOTE | 2022-02-09 15:18 | CMSP_ITS ---
- If Service Date Differs Date of service: 02/09/22 Time of Service: 15:19 Care Management Safety Plan Status: Voluntary - Reason for Wait Reason for Wait: Inpatient Admission VOLUNTARY FOR INPATIENT PSYCHIATRIC STABILIZATION. Patient is appropriate in all interactions since arriving at [facility]; Pt has demonstrated appropriate coping and communication skills, has articulated his or her needs and concerns and is fully engaged during staff interactions. Safety plan has been established with patient, and care team, to adhere to patient goals, identify restrictions based on behavioral status, address nutrition, and determine allowed personal belongings, tools for hygiene and personal care. Determine level of activity including ambulation, level of supervision, visitors, and determine privileges based on behaviors and level of engagement by pt. SAFETY PLAN: 1. Will remain on suicide precautions. In Paper Clothes 2. Will remain in room under direct supervision of one-on-one staff at all times provided by [employer]; JAYDEN, GROMMET MACHINE OPERATOR adaptive physical educator. 3. May have paper cups, plates, finger foods as well as a cardboard spoon with which to eat meals. 4. Follow [facility] Management of the Admitted Behavioral Health Patient policy. 5. Comfort bath system only, shower permitted with escort at RN discretion. 6. No personal belongings-soft items permitted at RN discretion. 7. Visitors-none at this time. 8. Activities: soft cart items approved per RN discretion. 9. Bathroom privileges with escort in the ED, available in room without limitation on M/S. 10. Phone: incoming/outgoing calls, via cordless phone at RN discretion. 11. Due to VOLUNTARY status, if patient wishes to leave [facility], staff will contact [facility] Crisis Screener ([phone]) and On-Call Pelletizer Tender ([phone]) as soon as possible. In the event of elopement, notify [facility] Police ([phone]). Patient is currently voluntarily at [facility] and seeking inpatient admission when a bed becomes available. [facility] Frontline Regional Economic Liaison will continue seeking placement. Please contact the Rice Milling Supervisor Pelletizer Tender ([phone]) and [facility] Regional Economic Liaison ([phone]) for any needed changes in the Safety Plan. Safety plan has been provided to interdepartmental care team.
--- NOTE | 2022-02-09 16:47 | PDOC.MHPN2 ---
Date of service: 02/09/22 Time of Service: 10:40 Mental Health Progress Note Progress Note Progress Note: Presenting Issue:Client stating SI Precipitating Factors Client states he is feeling SI with continous thoughts Disposition * Behavior:irritated with clinician for asking questions *Eye Contact:poor *Mood: irritated *Affect: flat *Appetite: client reports it's been better *Sleep(trouble falling/staying asleep):Client reports to sleeping very well Plan(please elaborate and include that physician is consulted with plan and/or placement):Client will stay at [facility] and await for voluntary placement. [facility] No hospitals are accepting at this time. Will reassess tomorrow 02/10/2022 Clinician's Name , Title, and Signature Sada He Enhanced Crisis Lastex Operator [facility] Make sure that you are photocopying and submitting this to [facility] records Dept. to be scanned into chart.
--- NOTE | 2022-02-09 18:04 | W.PM.PROGNOT ---
Date of Service Date of service: 02/09/22 Time of Service: 18:05 Assessment and Plan Assessment and plan (1) Suicide attempt: Status: Acute (2) Depression with suicidal ideation: Status: Acute Assessment and plan: Superficial cutting prior to this admission; no real suicide attempt. Cont Fluoxetin. I will ask Dr. Gonzalez to consult on this patient. He has done a telepsych consult in the past and was helpful in suggesting starting Dangelo on Olanzapine. I have increased his dose from 10 mg HS to 15 mg. In the past he was up to 20 mg however, I think this may have caused him oversedation. (3) Anxiety: Status: Chronic Assessment and plan: Currently on scheduled Ativan with prn dosing for CIWA scoring. He is on fluoxetine, (4) ADD (attention deficit disorder): Status: Acute Assessment and plan: On Vyvanse. This could contribute to anxiety. Qualifiers: Hyperactivity presence: present Attention deficit-hyperactivity disorder type: predominantly hyperactive Qualified Code(s): F90.1 - Attention-deficit hyperactivity disorder, predominantly hyperactive type (5) Methadone dependence: Status: Chronic Assessment and plan: Cont methadone. (6) Hypertension: Status: Chronic Assessment and plan: Not on antihypertensive medication. monitor Qualifiers: Hypertension type: essential hypertension Qualified Code(s): I10 - Essential (primary) hypertension (7) Alcohol abuse with withdrawal: Status: Acute Assessment and plan: Just released from [facility] on 02/04 after hospitalization for withdrawal. Since discharge he has been drinking heavily. CIWA monitoring with ativan protocol. Daily thiamine, folate, MVI Multiple admissions last year for withdrawal. He endorses desire for inpatient treatment. (8) DVT prophylaxis: Status: Acute Assessment and plan: on enoxaparin (9) Discharge planning issues: Status: Acute Assessment and plan: dispositon based on mental health evaluation; i.e. release into the community vs inpatient psychiatric treatment Subjective Subjective Interval history since last seen: Dangelo slept most of the day but after awakening he asked his nurse to perform a CIWA score on him. He alleges to still hear voices although he cannot tell me exactly what the voices are saying to him. He denies current visual hallucinations although in the past he says that he is seeing balloons with faces on them. He reportedly still itching and feeling anxious. Patient is currently on scheduled doses of lorazepam along with as needed oral dose of lorazepam. CIWA score this morning when he woke up was at 10 and was as high as 12 this afternoon before he was medicated. He then slept the afternoon away but woke up around dinner asking that the nurse perform a CIWA score. Rest of his vital signs are stable he is not tachycardic and not hypertensive and has no other autonomic signs of acute alcohol withdrawal. Exam Narrative Exam Narrative: Patient is sitting up in bed having just woken up. Alert, oriented to person/place/circumstances Lungs: clear Heart: RRR (rhythm per monitor is SR) abdomen: soft, nontender, nondistended, normal bowel sounds Neuro/psychiatric: he states hearing voices but not able to discern what they are saying to him. He denies visual hallucinations; he is very paraonid about what others think about him, concerned that I might think him to be crazy. I explained to him that I do not feel that he is crazy and while I do not hear those voices, I am not discounting that he is hearing them. Objective Last Vital Signs Temp 37.1 C 02/09/22 10:00 Pulse 74 02/09/22 10:24 Resp 12 02/09/22 16:00 BP 109/77 02/09/22 10:24 Pulse Ox 98 02/09/22 10:00 PAWSS Have you Been Recently Intoxicated or Drunk Within the Last 30 days?: Yes Have you Ever Experienced Previous Episodes of Alcohol Withdrawal?: Yes Have you ever Experienced Withdrawal Seizures?: Yes Have you ever Experienced Delirium Tremens(DT)s?: Yes Have you ever undergone Alcohol Rehabilitation Treatment (i.e, inpt ot outpatient treatment programs)?: Yes Have you ever Experienced Blackouts?: Yes Have you ever Combined Alcohol with other Downers within the last 90 days?: No Have you ever Combined Alcohol with any other Substance of Abuse during the last 90 days?: No Evidence of Increased Autonomic Activity (i.e. HR>120, tremor, sweating, agitation, nausea)?: Yes Result: 7
[2022-02-09] MEDS: Docusate Sodium 100 MG CAP PO (21:04)
[2022-02-09] MEDS: Atorvastatin 20 MG TAB PO (21:04)
[2022-02-09] MEDS: Melatonin 3 MG TAB 6 MG PO (21:04)
[2022-02-09] MEDS: OLANZapine 10 MG TAB 15 MG PO (21:05)
[2022-02-10] VITALS (15 sets, daily range): BP systolic 111–128; BP diastolic 60–79; PULSE 63–85; RESP 4–19; TEMP 36.8–36.9; O2SAT 95–98
[2022-02-10] MEDS: LORazepam 1 MG TAB PO/SL ×2 (06:26→23:39)
[2022-02-10] MEDS: Lisdexamphetamine 40 MG CAP PO (06:26)
[2022-02-10] MEDS: cloNIDine 0.1 MG TAB PO ×2 (06:26→22:24)
[2022-02-10] MEDS: Multivitamin TAB 1 TAB PO (09:12)
[2022-02-10] MEDS: Methadone Liquid 10 MG/ML 130 MG PO (09:12)
[2022-02-10] MEDS: Docusate Sodium 100 MG CAP PO (09:12)
[2022-02-10] MEDS: Aspirin E.C. 81 MG TABEC PO (09:12)
[2022-02-10] MEDS: LORazepam 1 MG TAB PO ×3 (09:13→22:24)
[2022-02-10] MEDS: FLUoxetine 20 MG CAP 40 MG PO (09:13)
[2022-02-10] MEDS: Folic Acid 1 MG TAB PO (09:13)
[2022-02-10] MEDS: Thiamine 100 MG TAB PO (09:13)
--- NOTE | 2022-02-10 11:29 | NUR.NOTE ---
Nursing Note Patient stated this morning his dad brought in his tablet so he could play chess. This nurse unable to find tablet, so this nurse called patient's father, Andrey, to check to see if Andrey brought patient's tablet yesterday. Andrey states the senior care assistant and yesterday's nurse stated Dangelo was not allowed any electronics. Confirming tablet was not brought in yesterday.
--- NOTE | 2022-02-10 11:37 | W.PM.PROGNOT ---
Date of Service Date of service: 02/10/22 Time of Service: 11:37 Assessment and Plan Assessment and plan (1) Suicide attempt: Status: Acute Assessment and plan: As below under assessment and plan for depression with suicidal ideation. (2) Depression with suicidal ideation: Status: Acute Assessment and plan: Superficial cutting prior to this admission; no real suicide attempt. Cont Fluoxetin. I will ask Dr. Gonzalez to consult on this patient. He has done a telepsych consult in the past and was helpful in suggesting starting Dangelo on Olanzapine. I have increased his dose from 10 mg HS to 15 mg and now I am increasing this to 20 mg nightly. (3) Anxiety: Status: Chronic Assessment and plan: Currently on scheduled Ativan with prn dosing for CIWA scoring. He is on fluoxetine. (4) ADD (attention deficit disorder): Status: Acute Assessment and plan: On Vyvanse but his dose is lower at 40 mg daily. He is requesting his home dose of 60 mg daily. However, when he had COVID-19 he had a cardiomyopathy and Vyvanse is contraindicated. I am going to dc this given his CM and anxiety and reportely [facility] will not take him if he is on the Vyvanse. Qualifiers: Hyperactivity presence: present Attention deficit-hyperactivity disorder type: predominantly hyperactive Qualified Code(s): F90.1 - Attention-deficit hyperactivity disorder, predominantly hyperactive type (5) Methadone dependence: Status: Chronic Assessment and plan: Cont methadone. (6) Hypertension: Status: Chronic Assessment and plan: Not on antihypertensive medication. monitor dc Vyvanse Qualifiers: Hypertension type: essential hypertension Qualified Code(s): I10 - Essential (primary) hypertension (7) Alcohol abuse with withdrawal: Status: Acute Assessment and plan: Just released from [facility] on 02/04 after hospitalization for withdrawal. Since discharge he has been drinking heavily. CIWA monitoring with ativan protocol. Daily thiamine, folate, MVI Multiple admissions last year for withdrawal. He endorses desire for inpatient treatment. At this point I am not convinced that he is still in active withdrawal, given that his autonomic symptoms have resolved and he is now at a point where he asks the nurse to do a CIWA score on me. I have continued his scheduled lorazepam 1 mg tid and he still has the prn lorazepam based on his CIWA score, however, over the next 24hr I think we can stop performing CIWA scoring. He probably needs some form of benzodiazepines for his anxiety. I will get Dr. Gonzalez's recommendations on treating his anxiety as well as his hallucinations. (8) DVT prophylaxis: Status: Acute Assessment and plan: on enoxaparin (9) Discharge planning issues: Status: Acute Assessment and plan: dispositon based on mental health evaluation; i.e. release into the community vs inpatient psychiatric treatment. CM and mental health coordinator have made referrals. Subjective Subjective Interval history since last seen: Patient states he thinks some withdrawal symptoms are improving. His headaches are better. He does not feel as jittery and his pruritus is improving. However he still notes that he hears voices. Exam Narrative Exam Narrative: Dangelo was awake but had a towel over his head and his eyes closed listening to the TV said. He was not fidgeting or scratching. The moment I came into the room and spoke with him he took the towel off his head and immediately started scratching his arms and fidgeting with his hands. He is not diaphoretic and is not tachycardic and the rest of his exam is benign. He had no tremors left first walked in the room but after he was aware was in the room and no some fine tremors in his hands. Objective Last Vital Signs Temp 36.9 C 02/10/22 09:15 Pulse 68 02/10/22 10:11 Resp 16 02/10/22 09:33 BP 111/79 02/10/22 09:33 Pulse Ox 97 02/10/22 09:33 PAWSS Have you Been Recently Intoxicated or Drunk Within the Last 30 days?: Yes Have you Ever Experienced Previous Episodes of Alcohol Withdrawal?: Yes Have you ever Experienced Withdrawal Seizures?: Yes Have you ever Experienced Delirium Tremens(DT)s?: Yes Have you ever undergone Alcohol Rehabilitation Treatment (i.e, inpt ot outpatient treatment programs)?: Yes Have you ever Experienced Blackouts?: Yes Have you ever Combined Alcohol with other Downers within the last 90 days?: No Have you ever Combined Alcohol with any other Substance of Abuse during the last 90 days?: No Evidence of Increased Autonomic Activity (i.e. HR>120, tremor, sweating, agitation, nausea)?: Yes Result: 7
[2022-02-10] MEDS: Nicotine 21 MG/24 HR PATCH TD (12:20)
[2022-02-10] MEDS: Ondansetron 4 MG/2 ML VIAL IVP (12:21)
[2022-02-10] MEDS: Normal Saline Flush 10 ML SYR IVP (12:21)
[2022-02-10] MEDS: Enoxaparin 40 MG/0.4 ML SYR SC (12:22)
--- NOTE | 2022-02-10 12:28 | PDOC.CMSAFE ---
- If Service Date Differs Date of service: 02/10/22 Time of Service: 12:28 Care Management Safety Plan Status: Voluntary - Reason for Wait Reason for Wait: Inpatient Admission VOLUNTARY FOR INPATIENT PSYCHIATRIC STABILIZATION. Patient is appropriate in all interactions since arriving at [facility]; Pt has demonstrated appropriate coping and communication skills, has articulated his or her needs and concerns and is fully engaged during staff interactions. Safety plan has been established with patient, and care team, to adhere to patient goals, identify restrictions based on behavioral status, address nutrition, and determine allowed personal belongings, tools for hygiene and personal care. Determine level of activity including ambulation, level of supervision, visitors, and determine privileges based on behaviors and level of engagement by pt. SAFETY PLAN: 1. Will remain on suicide precautions. In Paper Clothes 2. Will remain in room under direct supervision of one-on-one staff at all times provided by [employer]; JAYDEN, SIEVE GRADER TENDER digital advisor. 3. May have paper cups, plates, finger foods as well as a cardboard spoon with which to eat meals. 4. Follow [facility] Management of the Admitted Behavioral Health Patient policy. 5. Comfort bath system only, shower permitted with escort at RN discretion. 6. No personal belongings-soft items permitted at RN discretion. 7. Visitors-none at this time. 8. Activities: soft cart items approved per RN discretion. 9. Bathroom privileges with escort in the ED, available in room without limitation on M/S. 10. Phone: incoming/outgoing calls, via cordless phone at RN discretion. 11. Due to VOLUNTARY status, if patient wishes to leave [facility], staff will contact [facility] Crisis Screener ([phone]) and On-Call Loan Processor ([phone]) as soon as possible. In the event of elopement, notify [facility] Police ([phone]). Patient is currently voluntarily at [facility] and seeking inpatient admission when a bed becomes available. [facility] Frontline Fashion Styling Intern will continue seeking placement. Please contact the Dressage Judge Loan Processor ([phone]) and [facility] Fashion Styling Intern ([phone]) for any needed changes in the Safety Plan. Safety plan has been provided to interdepartmental care team.
--- NOTE | 2022-02-10 12:40 | PDOC.MHCN ---
Date of service: 02/10/22 Time of Service: 10:30 Mental Health Crisis Note Presenting Issue How did you arrive at the ED and why did you come: Client arrived in the ed with ETOH withdrawls and not wanting to live anymore Precipitating Factors Client states that on a scale of 1-10 he would be a 10 to want to end his life. Disposition BEHAVIOR: Relaxed EYE CONTACT: good MOOD: good AFFECT: responsive APPETITE: Getting better SLEEP(trouble falling/staying asleep: Slept great Plan Client will stay at [facility] and await voluntary inpatient treatment at a hospital TBD Signature Clinician's Name/Title: Sada He Enhanced Crisis Recorder Helper [employer] [facility]
[2022-02-10] MEDS: OLANZapine 10 MG TAB 20 MG PO (22:24)
[2022-02-10] MEDS: Atorvastatin 20 MG TAB PO (22:25)
[2022-02-10] MEDS: Melatonin 3 MG TAB 6 MG PO (22:25)
[2022-02-11] MEDS: Methadone Liquid 10 MG/ML 130 MG PO (08:19)
[2022-02-11] MEDS: Folic Acid 1 MG TAB PO (08:20)
[2022-02-11] MEDS: Aspirin E.C. 81 MG TABEC PO (08:20)
[2022-02-11] MEDS: FLUoxetine 20 MG CAP 40 MG PO (08:20)
[2022-02-11] MEDS: LORazepam 1 MG TAB PO ×2 (08:21→12:03)
[2022-02-11] MEDS: Multivitamin TAB 1 TAB PO (08:21)
[2022-02-11] MEDS: cloNIDine 0.1 MG TAB PO (08:21)
[2022-02-11] MEDS: Thiamine 100 MG TAB PO (08:21)
[2022-02-11 08:45] VITALS: BP 131/82; PULSE 80; RESP 16; TEMP 36.5; O2SAT 94
--- NOTE | 2022-02-11 09:27 | W.NUTRFU ---
Date of service: 02/11/22 Time of Service: 09:27 Nutrition Note NOTE: Jorge is awaiting mental health placement. BMI wnl and stable. Following Regular Meal plan with excellent intake. Not at nutritional risk at this time. Time Spent in Nutritional Counseling and Treatment: 0
[2022-02-11] MEDS: Ondansetron 4 MG/2 ML VIAL IVP (09:30)
[2022-02-11] MEDS: Normal Saline Flush 10 ML SYR IVP (09:32)
--- NOTE | 2022-02-11 09:53 | PGE_ITS ---
Date of Service Date of service: 02/11/22 Time of Service: 09:54 Assessment and Plan Assessment and plan (1) Suicide attempt: Status: Acute Assessment and plan: As below under assessment and plan for depression with suicidal ideation. (2) Depression with suicidal ideation: Status: Acute Assessment and plan: Superficial cutting prior to this admission; no real suicide attempt. Cont Fluoxetin. I will ask Dr. Gonzalez to consult on this patient. He has done a telepsych consult in the past and was helpful in suggesting starting Dangelo on Olanzapine. I have increased his dose from 10 mg HS to 15 mg and now is on 20 mg nightly. (3) Anxiety: Status: Chronic Assessment and plan: Currently on scheduled Ativan 1 mg 3 times daily (4) ADD (attention deficit disorder): Status: Acute Assessment and plan: Wean Vyvanse to 20 mg daily for 2 days then discontinue secondary to his cardiomyopathy from his recent COVID infection. [facility]. Qualifiers: Hyperactivity presence: present Attention deficit-hyperactivity disorder type: predominantly hyperactive Qualified Code(s): F90.1 - Attention- deficit hyperactivity disorder, predominantly hyperactive type (5) Methadone dependence: Status: Chronic Assessment and plan: Cont methadone. (6) Hypertension: Status: Chronic Assessment and plan: Not on antihypertensive medication. monitor dc Vyvanse Qualifiers: Hypertension type: essential hypertension Qualified Code(s): I10 - Essential (primary) hypertension (7) Alcohol abuse with withdrawal: Status: Acute Assessment and plan: Just released from [facility] on 02/04 after hospitalization for withdrawal. Since discharge he has been drinking heavily. At this point his acute alcohol withdrawal appears to have resolved other than his auditory hallucinations which I think is some underlying psychiatric problem for which I have put a request with case management to set up a telepsych consult with Dr. Gonzalez. (8) DVT prophylaxis: Status: Acute Assessment and plan: on enoxaparin (9) Discharge planning issues: Status: Acute Assessment and plan: dispositon based on mental health evaluation; i.e. release into the community vs inpatient psychiatric treatment. CM and mental health coordinator have made referrals. Subjective Subjective Interval history since last seen: Dangelo states he is feeling better. He feels that he is through the withdrawal stages. However he still hears voices but is unable to identify what they are saying. He swears that he heard boots walking across the ceiling last night. However he did sleep very well nurses said he slept through the night. I had increased his olanzapine to 20 mg at at bedtime yesterday. Dangelo understands that we have to wean him off of his Vyvanse because of his cardiomyopathy. I reduce the dose to 20 mg daily beginning today he will take 20 mg today and then 20 mg tomorrow and then stop the Vyvanse altogether. With respect to his anxiety I will keep him on scheduled doses of lorazepam 1 mg 3 times daily. And he remains on fluoxetine 40 mg daily. Dangelo understands that I have requested a telepsych consult with Dr. Gonzalez. Exam Narrative Exam Narrative: Dangelo had just woken up when I came in the room but he is alert and oriented and answering questions appropriately. He does not appear to be tremulous and is not diaphoretic. Lungs are clear Heart regular rate and rhythm Abdomen soft nontender From psychiatric standpoint patient seems to be appropriate but still reports hearing voices. He answers all my questions appropriately and he also asked me very pertinent and appropriate questions. Objective Last Vital Signs Temp 36.5 C 02/11/22 08:45 Pulse 80 02/11/22 08:45 Resp 16 02/11/22 08:45 BP 131/82 02/11/22 08:45 Pulse Ox 94 02/11/22 08:45 PAWSS Have you Been Recently Intoxicated or Drunk Within the Last 30 days?: Yes Have you Ever Experienced Previous Episodes of Alcohol Withdrawal?: Yes Have you ever Experienced Withdrawal Seizures?: Yes Have you ever Experienced Delirium Tremens(DT)s?: Yes Have you ever undergone Alcohol Rehabilitation Treatment (i.e, inpt ot outpatient treatment programs)?: Yes Have you ever Experienced Blackouts?: Yes Have you ever Combined Alcohol with other Downers within the last 90 days?: No Have you ever Combined Alcohol with any other Substance of Abuse during the last 90 days?: No Evidence of Increased Autonomic Activity (i.e. HR>120, tremor, sweating, agitation, nausea)?: Yes Result: 7
--- NOTE | 2022-02-11 11:17 | W.PSYCHCONSU ---
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 Hx intranasal and oral use of opioids. Meets with therapist twice monthly; has had take-home in the past. Alcohol abuse with withdrawal (Acute) Medical History Closed right ankle fracture (~09/2019) COVID Erectile dysfunction (10/03/17) Family history of diabetes mellitus (DM) (09/05/17) Gynecomastia, male (03/11/18) secondary to methadone Hyperglycemia (09/05/17) Hyperprolactinemia (04/15/18) Hypogonadism, male (03/24/18) Pending appt with Dr. Charles at [facility] in [place] Internal derangement of left knee QT prolongation Sprain of anterior cruciate ligament of left knee (~09/2019) Tobacco abuse (11/19/17) 1/2 ppd Family History Mother Diabetes Cancer thyroid cancer Father Diabetes Essential hypertension Paternal Grandfather No problems noted. Maternal Grandfather Stroke Paternal Uncle Cancer stomach cancer Social History Smoking/Tobacco Use Status: Current every day Tobacco Type: cigarettes Smoking risk assessment performed?: Yes Alcohol Intake: current Alcohol Intake frequency: 3 or more drinks per day Alcohol type: beer and hard liquor Drug use: Never Substance use type: does not use Details: normally drinks 1/2 gallon per 24 hours Household members: other Details: 3 other men in recovery. 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
--- NOTE | 2022-02-11 11:47 | W.PM.DS.N ---
Date of service: 02/11/22 Time of Service: 11:48 DS: Diagnosis Discharge Diagnosis (1) Suicide attempt: Status: Acute Asessment and Plan: This is a 41 year old male with multiple previous admissions for alcohol withdrawal, most recently d/'d from [facility] on 02/02/22.? He has a h/o alcohol abuse, polysubstance abuse, on methadone, ADHD, anxiety and depression, alcoholic cardiomyopathy. He presented to the ED withdrawing from alcohol c/o depression and SI.? When he was discharged on 02/02/22 he began drinking again, endorsing intake of 1/2 gallon of vodka and a couple of beers daily.? He chiefly c/o being in a high anxiety state.? ED evaluation:??Vital Signs Temperature? ?36.9 C? ?02/06/22 08:24 Pulse? ?130 H? ?02/06/22 08:24 Respiratory Rate? ?24? ?02/06/22 08:24 Blood Pressure? ?180/120 H? ?02/06/22 08:24 Pulse Oximetry? ?93? ?02/06/22 08:24 WBC normal.? Hgb 13.6.? Lytes normal.,? Creatinine 0.9.? Bili 0.3. AST 34, ALT 92.? Troponin neg.? Alcohol 56.8.? COVID negative. CIWA protocol initiated; score of 22 initially.? He was administered his scheduled methadone.? Also received IV ativan and po librium.? A banana bag also initiated. He was admitted on benzodiazapine withdrawal protocol. Patient has made attempts in the past of cutting of his arms. At present he does not have a definitive plan for how he would commit suicide but just feels that he might hurt himself if he does not get psychiatric help (2) Depression with suicidal ideation: Status: Chronic Asessment and Plan: patient was maintained on his fluoxetine and his Vyvanse was weaned off. He was treated for alcohol withdrawal with scheduled doses of lorazepam 1 mg 3 times daily along with as needed dosing based on his CIWA scores. His olanzapine was titrated from 10 mg nightly to up to 20 mg nightly. (3) Anxiety: Status: Chronic Asessment and Plan: As above (4) ADD (attention deficit disorder): Status: Chronic Asessment and Plan: Vyvanse was weaned off for multiple reasons including the potential effect that amphetamines can exacerbate his anxiety and worsen his hallucinations as well as the fact that the patient sustained a cardiomyopathy earlier this year associated with COVID infection. Current COVID status is he has been negative x2 nasal swabs in the past week. (5) Methadone dependence: Status: Chronic Asessment and Plan: Patient was kept on his usual home dose of methadone 130 mg daily. (6) Hypertension: Status: Chronic Asessment and Plan: Patient was kept on his clonidine 0.1 mg p.o. twice daily did not require further titration of his medication. (7) Alcohol abuse with withdrawal: Status: Resolved Asessment and Plan: Acute alcohol withdrawal was treated with scheduled doses of benzodiazepines including lorazepam milligram p.o. 3 times daily along with as needed dosing based on his CIWA scores. At the time of discharge he was free of symptoms of withdrawal with the exception of his auditory hallucinations which seem to be a chronic issue for him and are probably related to his underlying psychiatric problems. He has no autonomic symptoms of withdrawal at this point and is completely alert and oriented and answering questions appropriately and not exhibiting any tremors or diaphoresis or tachycardia and no visual hallucinations. Patient should get into an outpatient alcohol rehabilitation program including counseling and possible medications to prevent recidivism. (8) DVT prophylaxis: Status: Resolved Asessment and Plan: Patient was treated with enoxaparin 40 mg subcutaneously daily while hospitalized. He does not need long-term DVT prophylaxis. (9) Discharge planning issues: Status: Resolved Asessment and Plan: Patient is being discharged to [facility] for inpatient psychiatric care. Phone report was given to Polly Mesa NP. Afterwards it is anticipated that he will return to the community in an outpatient substance abuse program with continued outpatient counseling. Is also recommended that he receive medication to prevent alcohol recidivism. Patient will need outpatient follow-up psychiatric care for management of his psychiatric symptoms. Discharge Plan Disposition Patient Disposition: [facility] Condition: Improving Discharge Details Reason For Visit: Alcohol Withdrawl Admit Date/Time: 02/06/22 10:16 Admit Provider: Eugene Rogers Attending Provider: Eugene Rogers Primary Care Provider: Sophia Kelsey Hospital Course Hospital Course: This is a 41 year old male with multiple previous admissions for alcohol withdrawal, most recently d/'d from [facility] on 02/02/22.? He has a h/o alcohol abuse, polysubstance abuse, on methadone, ADHD, anxiety and depression, alcoholic cardiomyopathy. He presented to the ED withdrawing from alcohol c/o depression and SI.? When he was discharged on 02/02/22 he began drinking again, endorsing intake of 1/2 gallon of vodka and a couple of beers daily.? He chiefly c/o being in a high anxiety state.?He had multiple self-inflicted superficial cuts on his extremities; no recurrent history of cutting. ED evaluation:??Vital Signs Temperature? ?36.9 C? ?02/06/22 08:24 Pulse? ?130 H? ?02/06/22 08:24 Respiratory Rate? ?24? ?02/06/22 08:24 Blood Pressure? ?180/120 H? ?02/06/22 08:24 Pulse Oximetry? ?93? ?02/06/22 08:24 WBC normal.? Hgb 13.6.? Lytes normal.,? Creatinine 0.9.? Bili 0.3. AST 34, ALT 92.? Troponin neg.? Alcohol 56.8.? COVID negative. CIWA protocol initiated; score of 22 initially.? He was administered his scheduled methadone.? Also received IV ativan and po librium.? A banana bag also initiated. He was admitted on benzodiazapine withdrawal protocol. His withdrawal was uneventful. No seizure ocurred. He is requesting inpatient psychiatric care for his depression and anxiety. His olanzapine was titrated to 20 mg at HS and this improved his sleep. However, he still reports auditory voices and still expresses thoughts of suicide but otherwise has been oriented to person/place/time and circumstances. (in fact on the day of discharge, he discussed w/ me the events of the [employer] playoff game from Saturday 02/10). Discharging to [facility] Home Meds and New Rx's Prescriptions: New melatonin 3 mg Tablet 6 mg PO HS Qty: 0 0RF olanzapine 10 mg Tablet 20 mg PO HS Qty: 1 0RF Continued multivitamin Tablet 1 tab PO DAILY 0RF fluoxetine 40 mg capsule 40 mg PO DAILY Qty: 30 0RF Label Comments: Pt takes this medication daily in the morning. methadone 5 MG/5 ML solution 130 mg PO DAILY 0RF Label Comments: Patient states he got his dose yesterday. folic acid 1 mg Tablet 1 mg PO QAM Qty: 0 0RF thiamine mononitrate (vit B1) [Vitamin B-1 (mononitrate)] 100 mg Tablet 100 mg PO QAM Qty: 0 0RF Label Comments: Have not taken it for a long time. clonidine HCl 0.1 mg Tablet 0.1 mg PO BID Qty: 60 0RF atorvastatin 20 mg Tablet 20 mg PO QPM Qty: 30 0RF aspirin 81 mg Tablet,Delayed Release (Dr/Ec) 81 mg PO DAILY Qty: 30 0RF Metamucil Sugar-Free (aspart) 3.4 gram/5.8 gram Powder See Rx Instructions .ROUTE .COMPLEX Qty: 0 0RF Rx Instructions: 3.4 grams PO BID docusate sodium [Colace] 100 mg Capsule 100 mg PO BID Qty: 60 0RF Discontinued olanzapine 10 mg Tablet 10 mg PO HS Qty: 30 0RF Vyvanse 60 mg capsule 60 mg PO DAILY 0RF Label Comments: TAKE ONE CAPSULE BY MOUTH EVERY MORNING Discharge Instructions Stand Alone Forms: Nursing Discharge Form Activity:: Activity as Tolerated Diet:: As Tolerated DS: Summary Time Spent with Patient providing and/or coordinating discharge services: Greater than 30 minutes Specific discharge activities: Reconciling medication list, discussion with receiving facility, compiling discharge summary Status at Discharge Functional status at discharge: independent ambulation Overall status at discharge: patient is progressing back to baseline Mental Status: mental status grossly normal Speech and Movement: speech and movement normal Mood: paranoid Affect: anxious affect Exam Narrative Exam Narrative: Dangelo had just woken up when I came in the room but he is alert and oriented and answering questions appropriately. He does not appear to be tremulous and is not diaphoretic. Lungs are clear Heart regular rate and rhythm Abdomen soft nontender From psychiatric standpoint patient seems to be appropriate but still reports hearing voices. He answers all my questions appropriately and he also asked me very pertinent and appropriate questions. Psych Mental Status: mental status grossly normal Speech and Movement: speech and movement normal Mood: paranoid Affect: anxious affect DS: Data Vitals/I&O Vitals and I&O: Vital Signs Temperature 36.5 C 02/11/22 08:45 Temperature Source Temporal Artery Scan 02/11/22 08:45 Pulse 80 02/11/22 08:45 Pulse Rhythm Regular 02/11/22 08:38 Pulse 66 02/10/22 10:00 Respiratory Rate 16 02/11/22 08:45 Respiratory Effort Non-Labored 02/11/22 08:38 Respiratory Depth Normal 02/11/22 08:38 Respiratory Pattern Normal 02/11/22 08:38 Blood Pressure 131/82 02/11/22 08:45 Blood Pressure Mean 82 02/10/22 16:17 Blood Pressure Position Supine 02/09/22 10:00 Pulse Oximetry 94 02/11/22 08:45 Oxygen Delivery Method Room Air 02/11/22 08:45 Oxygen Flow Rate 0 02/11/22 08:45 Pain Level 0 02/11/22 11:20 Intake & Output 02/10/22 02/10/22 02/11/22 11:59 23:59 11:59 Intake Total 1460 / 3680 2220 / 3680 960 / 960 Output Total 1425 / 4425 3000 / 4425 1000 / 1000 Balance 35 / -745 -780 / -745 -40 / -40 Intake: Oral 1460 / 3680 2220 / 3680 960 / 960 Output: Urine 1425 / 4425 3000 / 4425 1000 / 1000 Other: Urine Color Yellow Yellow Straw Urine Appearance Clear Clear Urine Odor Normal Strong Voiding Methods Urinal Urinal Urinal PFSH All Active Problems (Updated 02/11/22 @ 11:53 by Gabo Logan) Pain (Acute) Hypertension (Chronic) ADD (attention deficit disorder) (Chronic) HFrEF (heart failure with reduced ejection fraction) (Acute) Cardiomyopathy (Acute) Suicide attempt (Acute) 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 Hx intranasal and oral use of opioids. Meets with therapist twice monthly; has had take-home in the past. Medical History Closed right ankle fracture (~09/2019) COVID Erectile dysfunction (10/03/17) Family history of diabetes mellitus (DM) (09/05/17) Gynecomastia, male (03/11/18) secondary to methadone Hyperglycemia (09/05/17) Hyperprolactinemia (04/15/18) Hypogonadism, male (03/24/18) Pending appt with Dr. Charles at [facility] in [place] Internal derangement of left knee QT prolongation Sprain of anterior cruciate ligament of left knee (~09/2019) Tobacco abuse (11/19/17) 1/2 ppd Family History Mother Diabetes Cancer thyroid cancer Father Diabetes Essential hypertension Paternal Grandfather No problems noted. Maternal Grandfather Stroke Paternal Uncle Cancer stomach cancer Social History Smoking/Tobacco Use Status: Current every day Tobacco Type: cigarettes Smoking risk assessment performed?: Yes Alcohol Intake: current Alcohol Intake frequency: 3 or more drinks per day Alcohol type: beer and hard liquor Drug use: Never Substance use type: does not use Details: normally drinks 1/2 gallon per 24 hours Household members: other Details: 3 other men in recovery. 

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
== END 2022-02-11 13:05 | disposition short-term general hospital (02) | DRG 897 ==
LOC: ER 11:13 → ICU 12:19
PROVIDERS: Admitting Provider Family Medicine; Emergency Provider Physician Assistant; PCP Family Medicine; Visit Provider Family Medicine
DX: F10.139 Alcohol abuse with withdrawal, unspecified (principal); R45.851 Suicidal ideations; F11.20 Opioid dependence, uncomplicated; I50.22 Chronic systolic (congestive) heart failure; I42.6 Alcoholic cardiomyopathy; F32.A Depression, unspecified; F98.8 Other specified behavioral and emotional disorders with onset usually occurring in childhood and adolescence; F41.9 Anxiety disorder, unspecified; F10.150 Alcohol abuse with alcohol-induced psychotic disorder with delusions; I11.0 Hypertensive heart disease with heart failure; R74.8 Abnormal levels of other serum enzymes; F17.210 Nicotine dependence, cigarettes, uncomplicated; S11.91XA Laceration without foreign body of unspecified part of neck, initial encounter; S61.512A Laceration without foreign body of left wrist, initial encounter; S61.511A Laceration without foreign body of right wrist, initial encounter; S91.012A Laceration without foreign body, left ankle, initial encounter; X78.9XXA Intentional self-harm by unspecified sharp object, initial encounter
CPT/HCPCS: 36415; 80048; 80053; 80307; 87635; 93005; 96365; 96366; 96375; 99283; 99291; J1650; 80320; 80329; 81003; 83735; 84443; 84484; 85025; 93010; 99223; 99232; 99233; 99239; J2060; J2405; J3490

== ENCOUNTER 2022-03-20 15:25 | Emergency (ER) | payer MEDICAID, SELFPAY ==
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
== END 2022-03-20 15:49 | disposition left before discharge ==
LOC: ER 19:14
PROVIDERS: PCP Family Medicine
DX: Z53.21 Procedure and treatment not carried out due to patient leaving prior to being seen by health care provider (principal)

== ENCOUNTER 2022-04-26 07:16 | Inpatient (IN) | payer MEDICAID, SELFPAY ==
[2022-04-26] VITALS (80 sets, daily range): BP systolic 124–183; BP diastolic 71–129; PULSE 75–118; RESP 11–41; TEMP 34.9–38.4; O2SAT 90–100
--- NOTE | 2022-04-26 07:15 | RT.EKG_ITS ---
APPROVED REPORT Exam: Resting ECG Reason for Exam: DYSPNEA Patient Location: E HR:87 bpm ECG Measurements Heart Rate 87 AXIS MO 152 P 113 QRSd 105 QRS 55 QT 511 T 9 QTc 614 Conclusion Sinus rhythm...normal P axis, V-rate 60- 99 Probable left atrial enlargement...P >50mS, <-0.10mV V1 Borderline ST elevation, anterior leads...ST >0.15mV in V1-V4 Prolonged QT interval...QTc >500mS sinus rhtyhm, normal axis, poor baseline
--- NOTE | 2022-04-26 07:30 | DI.RAD_ITS ---
Exam(s) XR PORTABLE CHEST AP EXAM: XR PORTABLE CHEST AP CLINICAL HISTORY: sob. TECHNIQUE: 2D digital imaging was performed. COMPARISON: CR,XR XR CHEST 2V PA LATERAL from 07/09/2019 FINDINGS: Single AP portable view. Heart size is upper normal. The mediastinum is not widened. Lungs are clear. No infiltrates nor obvious pleural effusions. IMPRESSION: No acute pulmonary findings on this single AP portable view of the chest. DATA REPOSITORY: RADIATION DOSE DELIVERED: All CT scans at this facility use at least one of these dose optimization techniques: automated exposure control; mA and/or kV adjustment per patient size (includes targeted e xams where dose is matched to clinical indication); or iterative reconstruction.
--- NOTE | 2022-04-26 07:40 | W.ED.GENAD ---
Discharge Plan Disposition Patient Disposition: [facility] INPATIENT Condition: Fair Discharge Details Chief Complaint: GenMedical Clinical Impression: Acute opioid withdrawal, Hypokalemia, Diarrhea Primary Care Provider: Sophia Kelsey ED Provider: Eugene Handy Home Meds and New Rx's Prescriptions: No Action clonidine HCl 0.1 mg tablet 0.1 mg PO BID Qty: 60 0RF fluoxetine 60 mg tablet 60 mg PO DAILY Qty: 30 1RF methadone 5 MG/5 ML solution 130 mg PO DAILY Label Comments: Patient states he got his dose yesterday. aspirin 81 mg Tablet,Delayed Release (Dr/Ec) 81 mg PO DAILY Qty: 30 0RF Metamucil Sugar-Free (aspart) 3.4 gram/5.8 gram Powder See Rx Instructions .ROUTE .COMPLEX Qty: 0 0RF Rx Instructions: 3.4 grams PO BID Medical Decision Making 41-year-old male history of polysubstance abuse currently on methadone, presents with tachycardia hypertension diarrhea clear nasal discharge, psychomotor agitation, clinical picture concerning for opioid withdrawal patient Dors that he took his methadone this morning however unclear how reliable he is, consider diversion of his medication and active withdrawal, was also consider alcohol withdrawal, lungs are clear bilaterally, no peripheral edema lower suspicion for CHF exacerbation, patient noted to be hypothermic on arrival consider infectious versus environmental must consider flu COVID or bacterial pneumonia, will send basic labs culture chest x-ray EKG urine toxicology will provide fluids benzodiazepine antiemetics, will dose clonidine at this time, consider giving another dose of methadone pending initial results. Disposition pending reassessment of symptomatology. 08: 43 patient is EtOH positive, elevated lipase, hypokalemia, leukocytosis and elevated troponin; again asked patient if he truly took his methadone as clinically he appears to be in withdrawal patient endorses that he did take his methadone 130 mg this morning, however patient was dishonest about drinking endorses no drugs or alcohol yet has an EtOH level on arrival, very unreliable historian, will give low-dose methadone given clinical presentation will also continue with benzos as needed, fluid hydration, elevated troponin likely demand in nature in the setting of nausea vomiting diarrhea dehydration and withdrawal less likely true ACS, consider chronic versus early acute pancreatitis, will trend troponin will continue with meds and fluids and symptomatic treatment, pending second troponin if stable or downtrending consider admission here at [facility] v transfer 11: 47 patient resting more comfortably, troponin downtrending, no chest pain; patient no longer diaphoretic and writhing, diarrhea is also slowed down, clinical presentation consistent with opioid withdrawal. Will admit for further observation and continued fluids treatment of withdrawal symptoms electrolyte repletion HPI General Date/Time Provider Initiated Documentation: 04/26/22 07:16. HPI Narrative: 41-year-old male history of polysubstance abuse currently on methadone, presents with unclear initial chief complaint endorsing diarrhea on my examination however presents as shortness of breath, very poor historian due to clinical status, denies active drug use denies active drinking, endorses getting his dose of methadone this morning and not missing his doses beyond that patient is not giving me much information during history and physical Related Data Home Medications Medication Instructions Recorded Confirmed methadone 5 mg/5 mL oral solution 130 mg PO DAILY 09/05/17 04/26/22 aspirin 81 mg tablet,delayed 81 mg PO DAILY #30 tabs 02/02/22 03/22/22 release psyllium husk (aspartame) 3.4 See Rx Instructions .Route 02/02/22 02/06/22 gram/5.8 gram oral powder .COMPLEX #0 grams (Metamucil Sugar-Free (aspartame)) clonidine HCl 0.1 mg tablet 0.1 mg PO BID #60 tabs 03/22/22 04/26/22 fluoxetine 60 mg tablet 60 mg PO DAILY #30 tabs 03/22/22 04/26/22 Previous Rx's Medication Instructions Recorded aspirin 81 mg tablet,delayed 81 mg PO DAILY #30 tabs 02/02/22 release psyllium husk (aspartame) 3.4 See Rx Instructions .Route 02/02/22 gram/5.8 gram oral powder .COMPLEX #0 grams (Metamucil Sugar-Free (aspartame)) clonidine HCl 0.1 mg tablet 0.1 mg PO BID #60 tabs 03/22/22 fluoxetine 60 mg tablet 60 mg PO DAILY #30 tabs 03/22/22 Allergies Allergy/AdvReac Type Severity Reaction Status Date / Time No Known Allergies Allergy Verified 04/26/22 07:26 General Stated Complaint: GenMedical PACO: 3 Review of Systems Narrative: Review of Systems Constitutional: negative Eyes: negative ENT: negative Cardiovascular: negative Respiratory: negative Gastrointestinal: Diarrhea : negative Musculoskeletal: negative Skin: negative Neurologic: negative Psych: negative PFSH All Active Problems (Updated 04/26/22 @ 11:50 by Eugene Handy MD) Acute opioid withdrawal (Acute) Hypokalemia (Acute) Diarrhea (Acute) Tobacco abuse (Acute 11/19/17) 1/2 ppd Hypertension (Chronic) ADD (attention deficit disorder) (Chronic) HFrEF (heart failure with reduced ejection fraction) (Acute) Anxiety (Chronic 09/05/17) Methadone dependence (Chronic 04/01/18) BAART in [facility] Hx intranasal and oral use of opioids. Meets with therapist twice monthly; has had take-home in the past. Medical History (Updated 04/26/22 @ 11:50 by Eugene Handy MD) Closed right ankle fracture (~09/2019) COVID Depression with suicidal ideation Hospitalized at [facility] psych 02/15-02/26/22. Erectile dysfunction (10/03/17) Family history of diabetes mellitus (DM) (09/05/17) Gynecomastia, male (03/11/18) secondary to methadone Hyperglycemia (09/05/17) Hyperprolactinemia (04/15/18) Hypogonadism, male (03/24/18) Pending appt with Dr. Charles at [facility] in [place] Internal derangement of left knee QT prolongation Sprain of anterior cruciate ligament of left knee (~09/2019) Family History Mother Diabetes Cancer thyroid cancer Father Diabetes Essential hypertension Paternal Grandfather No problems noted. 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, 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 Current gender identity: male Do you feel safe at home: Yes Do you feel safe in your relationship?: Yes Exam Narrative Exam Narrative: Physical Examination General: Agitated, diaphoretic HEENT: normocephalic, atraumatic; PERRL, EOM intact, conjunctiva normal; clear nasal discharge; moist mucous membranes, oral and pharyngeal mucosa normal, tolerating secretions Neck: supple, trachea midline; full ROM Chest: normal to inspection Respiratory: Tachypnea, speaking in full sentences, clear to auscultation, no wheezing, rales or rhonchi Cardiac: Tachycardia, regular rhythm, S1S2 intact, no murmurs rubs or gallops GI: abdomen soft, non-tender, non-distended; no palpable mass or hepatosplenomegaly Skin: Diaphoretic; no lesions, rashes or trauma appreciated Neuro: AAOx3, normal speech, moving all extremities Extremities: No peripheral edema Psych: Psychomotor agitation intermittently screaming at staff Course Vital Signs Vital signs: Vital Signs Temperature 34.9 C L 04/26/22 07:20 Pulse 118 H 04/26/22 07:20 Respiratory Rate 16 04/26/22 07:20 Blood Pressure 134/114 H 04/26/22 07:20 Pulse Oximetry 97 04/26/22 07:20 Temperature 34.9 C L 04/26/22 07:20 Temperature Source Oral 04/26/22 07:20 Pulse 118 H 04/26/22 07:20 Respiratory Rate 16 04/26/22 07:20 Blood Pressure 134/114 H 04/26/22 07:20 Blood Pressure Position Supine 04/26/22 07:20 Pulse Oximetry 97 04/26/22 07:20 Oxygen Delivery Method Room Air 04/26/22 07:20 Oxygen Flow Rate 0 04/26/22 07:20 Pain Level 10 04/26/22 07:20 Lab/Test Results Lab/Test Results: 04/26/22 07:34 Blood Blood Culture - Pending 04/26/22 07:34 Blood Blood Culture - Pending
[2022-04-26] MEDS: Normal Saline 1,000 ML 1000 ML IV (07:54)
[2022-04-26] MEDS: LORazepam 2 MG/ML VIAL 1 MG IVP (07:54)
[2022-04-26 08:08] LABS: Abs Immature Grans 0.06 10^3/uL (0.0-0.06); Absolute Eosinophil Count 0.15 10^3/uL (0.0-0.7); Absolute Monocyte Count 1.17 10^3/uL (0.1-0.8); Basophils % 0.4; Eosinophils % 0.9; HCT 47.3 % (40.0-50.0); HGB 16.5 g/dL (13.5-17.5); Immature Grans % 0.4; Lymphocytes % 33.2; MCH 32.2 pg (27.0-33.0); MCHC 34.9 % (32.0-36.0); MCV 92 fL (80-95); MPV 9.6 fL (8.0-11.0); Monocytes % 7.2; Neutrophils % 57.9; Platelet Count 323 10^3/uL (130-400); RBC 5.13 10^6/uL (4.36-5.78); RDW 11.4 % (11.8-14.1); RDW-SD 39.1 fL; WBC 16.27 10^3/uL (4.4-10.8)
[2022-04-26 08:10] LABS: Absolute Basophil Count 0.07 10^3/uL (0.0-0.2); Absolute Neutrophil Count 9.42 10^3/uL (1.2-6.7)
[2022-04-26 08:36] LABS: Albumin 4.3 g/dL (3.4-5.0); Alkaline Phosphatase 90 U/L (46-116); BUN 33 mg/dL (7-18); Bilirubin, Total 0.2 mg/dL (0.2-1.0); CREATININE 0.9 mg/dL (0.70-1.30); Calcium 9.8 mg/dL (8.5-10.1); Glucose 116 mg/dL (74-106); Total Protein 8.2 g/dL (6.4-8.2)
[2022-04-26 08:37] LABS: ALT 46 U/L (16-63); AST 23 U/L (15-37); Anion Gap 20.3 mmol/L (3-11); CO2 17.7 mmol/L (21.0-32.0); Chloride 101 mmol/L (98-107); Creatine Kinase 102 U/L (39-308); Lipase 956 U/L (73-393); NT-proBNP 15 pg/mL (<300); Sodium 139 mmol/L (136-145); TSH (W/Ref FT4) 1.03 uIU/mL (0.36-3.74)
[2022-04-26 08:38] LABS: Potassium 2.4 mmol/L (3.5-5.1); Troponin I 156 ng/L (<or=60)
[2022-04-26 08:39] LABS: Diff Comment Diff Reviewed; RBC Morphology Normal
[2022-04-26 08:45] LABS: COVID-19 PCR Negative (Negative); Influenza A PCR Negative (Negative); Influenza B PCR Negative (Negative); RSV PCR Negative (Negative)
[2022-04-26 08:49] LABS: Source Nasopharynx
[2022-04-26] MEDS: Aspirin 325 MG TAB PO (08:54)
[2022-04-26] MEDS: POTASSIUM CHLORIDE 10 MEQ/100 ML BAG 100 MEQ IVPB (08:56)
[2022-04-26] MEDS: Potassium Chloride 20 MEQ TABCR PO (08:56)
[2022-04-26] MEDS: cloNIDine 0.1 MG TAB 0.2 MG PO ×2 (08:56→19:42)
[2022-04-26] MEDS: Ondansetron 4 MG/2 ML VIAL IVP (08:57)
[2022-04-26] MEDS: Methadone 10 MG TAB PO (09:32)
[2022-04-26 10:58] LABS: Anion Gap 13.6 mmol/L (3-11); BUN 25 mg/dL (7-18); CO2 19.4 mmol/L (21.0-32.0); CREATININE 0.8 mg/dL (0.70-1.30); Calcium 8.3 mg/dL (8.5-10.1); Chloride 106 mmol/L (98-107); Glucose 106 mg/dL (74-106); Potassium 3.1 mmol/L (3.5-5.1); Sodium 139 mmol/L (136-145)
[2022-04-26 11:14] LABS: Bilirubin Negative (Negative); Blood Negative (Negative); Clarity Clear (Clear); Glucose Negative (Negative); Ketones 15 mg/dL (Negative); Leukocyte Esterase Negative (Negative); Nitrite Negative (Negative); Urobilinogen 0.2 EU/dL (Up TO 0.2); pH 5.5 (5-8)
[2022-04-26 11:32] LABS: *AMPHETAMINES SCREEN URINE Negative (Negative); *BARBITURATES SCREEN URINE Negative (Negative); *BENZODIAZEPINES SCREEN URINE Negative (Negative); Cannabinoids THC Positive (Negative); Cocaine Screen,Urine Negative (Negative); METHADONE URINE SCREEN Positive (Negative); OPIATES URINE SCREEN Negative (Negative)
[2022-04-26 11:36] LABS: Tricyclic Antidepressants Negative (Negative)
[2022-04-26 11:38] LABS: Troponin I 124 ng/L (<or=60)
[2022-04-26] MEDS: Lactated Ringers 1,000 ML 80 ML IV (14:47)
[2022-04-26] MEDS: Enoxaparin 40 MG/0.4 ML SYR SC (14:51)
[2022-04-26] MEDS: cloNIDine 0.1 MG TAB PO (14:52)
[2022-04-26 15:55] LABS: Troponin I 131 ng/L (<or=60)
[2022-04-26] MEDS: PHENobarbital 130 MG/ML VIAL 260 MG IVP ×3 (16:33→23:03)
--- NOTE | 2022-04-26 16:44 | NUR.NOTE ---
Patient receives 260mg of Phenobarbitol IVP.Nursing Note:
--- NOTE | 2022-04-26 18:21 | HPE_ITS ---
Date of service: 04/26/22 Time of Service: 18:21 Assessment and Plan Assessment and plan (1) QT prolongation: Assessment and plan: This was noted on EKG at last admission but not on previous admissions. Likely methadone related. Hold methadone. Clonidine for withdrawal symptoms. Beta patricia could shortnen the QT interval and will consider. (clonidine may lower HR so both it and a BB may lower rate excessively). (2) Acute opioid withdrawal: Status: Acute Assessment and plan: Clonidine scheduled. Supportive care. (3) Methadone dependence: Status: Chronic Assessment and plan: Concerned that his methadone is causing QT prolongation and therefore the risk of arrythmia / Torsades. Holding at this time. (4) HFrEF (heart failure with reduced ejection fraction): Status: Acute Assessment and plan: No appearance of volume overload. (5) Tobacco abuse: Status: Acute Assessment and plan: Offer nicotine replacement if he desires. (6) ADD (attention deficit disorder): Status: Chronic Assessment and plan: No home medications currently. Qualifiers: Attention deficit-hyperactivity disorder type: predominantly hyperactive Hyperactivity presence: present Qualified Code(s): F90.1 - Attention-deficit hyperactivity disorder, predominantly hyperactive type (7) Depression with anxiety: Status: Acute Assessment and plan: Long standing. NOt voicing suicidal ideations. (8) Alcohol abuse: Status: Inactive Assessment and plan: Etoh level is elevated. Previous admissions for Etoh withdrawal. CIWA monitoring. PRN phenobarbital protocal. Thiamine, folate and MVI. History of Present Illness History of Present Illness Chief Complaint: Diarrhea Narrative: This is a 41 yo male with a PMH of substance abuse on methadone, Etoh abuse with history of hospitalizations for withdrawal, cardiomyopathy with reduced EF of 45%, tobacco abbuse, depression and anxiety with suicidal ideations, HTN, ADD. He presented to the ED with an unclear reason provided to the ED but did state he had diarrhea. He was noted to have rhinorrhea and diarrhea. He was agitated. He did endorse taking his methadone that he picks up at [facility] that AM (this was verified later). He denied diverting his medication. He later stated he had taken naltrexone that he had previously been prescribed and then went into opiod withdrawal. ED course: Temperature?34.9 C L?04/26/22 07:20Pulse?118 H?04/26/22 07:20Respiratory Rate?16?07/01/22 07:20Blood Pressure?134/114 H?04/26/22 07:20Pulse Oximetry?97?04/26/22 07:20 Etoh level was positive. Lipase elevated, K was low. + leukocytosis. Troponin was 131 then 117. No CP. He was given 10mg methadone. He was warmed and his temperature improved. Clonidine 0.2mg po given His EKG was concerning for a QTc of >500mS. Review of Systems All systems reviewed & are unremarkable except as noted in HPI and below PFSH All Active Problems (Updated 04/26/22 @ 18:23 by Eugene Rogers MD) Depression with anxiety (Acute) Acute opioid withdrawal (Acute) Hypokalemia (Acute) Diarrhea (Acute) Tobacco abuse (Acute 11/19/17) 1/2 ppd Hypertension (Chronic) ADD (attention deficit disorder) (Chronic) HFrEF (heart failure with reduced ejection fraction) (Acute) Anxiety (Chronic 09/05/17) Methadone dependence (Chronic 04/01/18) BAART in [facility]. Hx intranasal and oral use of opioids. Meets with therapist twice monthly; has had take-home in the past. Medical History (Updated 04/26/22 @ 18:23 by Eugene Rogers MD) Closed right ankle fracture (~09/2019) COVID Depression with suicidal ideation Hospitalized at [facility] psych 02/15-02/26/22. Erectile dysfunction (10/03/17) Family history of diabetes mellitus (DM) (09/05/17) Gynecomastia, male (03/11/18) secondary to methadone Hyperglycemia (09/05/17) Hyperprolactinemia (04/15/18) Hypogonadism, male (03/24/18) Pending appt with Dr. Charles at [facility] in [place] Internal derangement of left knee QT prolongation Sprain of anterior cruciate ligament of left knee (~09/2019) Family History Mother Diabetes Cancer thyroid cancer Father Diabetes Essential hypertension Paternal Grandfather No problems noted. 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[employer], 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 Current gender identity: male Do you feel safe at home: Yes Do you feel safe in your relationship?: Yes Meds Allergies and Home Medications Allergies Allergy/AdvReac Type Severity Reaction Status Date / Time No Known Allergies Allergy Verified 04/26/22 07:26 Home Medications Medication Instructions Recorded Confirmed Type methadone 5 mg/5 mL oral solution 130 mg PO DAILY 09/05/17 04/26/22 History aspirin 81 mg tablet,delayed 81 mg PO DAILY #30 tabs 02/02/22 03/22/22 Rx release psyllium husk (aspartame) 3.4 See Rx Instructions .Route 02/02/22 02/06/22 Rx gram/5.8 gram oral powder .COMPLEX #0 grams (Metamucil Sugar-Free (aspartame)) clonidine HCl 0.1 mg tablet 0.1 mg PO BID #60 tabs 03/22/22 04/26/22 Rx fluoxetine 60 mg tablet 60 mg PO DAILY #30 tabs 03/22/22 04/26/22 Rx Exam Narrative Exam Narrative: Lying in bed. Const General: no acute distress, disheveled and lethargic Nutritional Appearance: average body habitus Orientation: oriented to person and oriented to place Eyes General: appearance normal, both eyes and all related structures Sclera: sclerae normal Resp Effort & Inspection: normal respiratory effort Auscultation: clear to auscultation bilaterally Cardio Rate: tachycardic Rhythm: regular rhythm Heart Sounds: S1 normal and S2 normal GI Palpation: soft and nontender Neuro General: no focal motor deficits Extrem General: no pedal edema and no calf tenderness Results Labs Result diagrams: 04/27/22 05:32 04/27/22 05:32 Labs: Laboratory Results - last 24 hr 04/26/22 04/26/22 04/26/22 07:56 07:56 07:56 WBC 16.27 H RBC 5.13 Hgb 16.5 Hct 47.3 MCV 92 MCH 32.2 MCHC 34.9 RDW 11.4 L Plt Count 323 MPV 9.6 Immature Gran % 0.4 Neutrophils % 57.9 Lymphocytes % 33.2 Monocytes % 7.2 Eosinophils % 0.9 Basophils % 0.4 Nucleated RBC % 0.0 Absolute Neutrophils 9.42 H Absolute Lymphocytes 5.40 H Absolute Monocytes 1.17 H Absolute Eosinophils 0.15 Absolute Basophils 0.07 RBC Morphology Normal Sodium 139 Potassium 2.4 L* Chloride 101 Carbon Dioxide 17.7 L Anion Gap 20.3 H BUN 33 H Creatinine 0.9 Estimated GFR/1.73 m2 >= 60.00 Glucose 116 H Calcium 9.8 Total Bilirubin 0.2 AST 23 ALT 46 Alkaline Phosphatase 90 Creatine Kinase 102 Troponin I Cancelled 156 H* NT-Pro-B Natriuret Pep 15 Total Protein 8.2 Albumin 4.3 Lipase 956 H TSH 1.03 Urine Color Urine Clarity Urine pH Ur Specific Como Urine Protein Urine Ketones Urine Blood Urine Nitrite Urine Bilirubin Urine Urobilinogen Ur Leukocyte Esterase Urine Glucose Urine Opiates Screen Urine Methadone Screen Ur Barbiturates Screen Ur Tricyclics Screen Ur Amphetamines Screen U Benzodiazepines Scrn Urine Cocaine Screen Ur THC Screen Ethyl Alcohol 117.0 H COVID-19 Source SARS-CoV-2 (PCR) Influenza Type A (PCR) Influenza Type B (PCR) RSV (PCR) 04/26/22 04/26/22 04/26/22 07:56 10:43 10:43 WBC RBC Hgb Hct MCV MCH MCHC RDW Plt Count MPV Immature Gran % Neutrophils % Lymphocytes % Monocytes % Eosinophils % Basophils % Nucleated RBC % Absolute Neutrophils Absolute Lymphocytes Absolute Monocytes Absolute Eosinophils Absolute Basophils RBC Morphology Sodium 139 Potassium 3.1 L Chloride 106 Carbon Dioxide 19.4 L Anion Gap 13.6 H BUN 25 H Creatinine 0.8 Estimated GFR/1.73 m2 >= 60.00 Glucose 106 Calcium 8.3 L Total Bilirubin AST ALT Alkaline Phosphatase Creatine Kinase Troponin I 124 H* NT-Pro-B Natriuret Pep Total Protein Albumin Lipase TSH Urine Color Urine Clarity Urine pH Ur Specific Como Urine Protein Urine Ketones Urine Blood Urine Nitrite Urine Bilirubin Urine Urobilinogen Ur Leukocyte Esterase Urine Glucose Urine Opiates Screen Urine Methadone Screen Ur Barbiturates Screen Ur Tricyclics Screen Ur Amphetamines Screen U Benzodiazepines Scrn Urine Cocaine Screen Ur THC Screen Ethyl Alcohol COVID-19 Source Nasopharynx SARS-CoV-2 (PCR) Negative Influenza Type A (PCR) Negative Influenza Type B (PCR) Negative RSV (PCR) Negative 04/26/22 04/26/22 04/26/22 11:00 11:00 14:54 WBC RBC Hgb Hct MCV MCH MCHC RDW Plt Count MPV Immature Gran % Neutrophils % Lymphocytes % Monocytes % Eosinophils % Basophils % Nucleated RBC % Absolute Neutrophils Absolute Lymphocytes Absolute Monocytes Absolute Eosinophils Absolute Basophils RBC Morphology Sodium Potassium Chloride Carbon Dioxide Anion Gap BUN Creatinine Estimated GFR/1.73 m2 Glucose Calcium Total Bilirubin AST ALT Alkaline Phosphatase Creatine Kinase Troponin I Cancelled NT-Pro-B Natriuret Pep Total Protein Albumin Lipase TSH Urine Color Yellow Urine Clarity Clear Urine pH 5.5 Ur Specific Com[place] 1.020 Urine Protein Negative Urine Ketones 15 H Urine Blood Negative Urine Nitrite Negative Urine Bilirubin Negative Urine Urobilinogen 0.2 Ur Leukocyte Esterase Negative Urine Glucose Negative Urine Opiates Screen Negative Urine Methadone Screen Positive A Ur Barbiturates Screen Negative Ur Tricyclics Screen Negative Ur Amphetamines Screen Negative U Benzodiazepines Scrn Negative Urine Cocaine Screen Negative Ur THC Screen Positive A Ethyl Alcohol COVID-19 Source SARS-CoV-2 (PCR) Influenza Type A (PCR) Influenza Type B (PCR) RSV (PCR) 04/26/22 15:05 WBC RBC Hgb Hct MCV MCH MCHC RDW Plt Count MPV Immature Gran % Neutrophils % Lymphocytes % Monocytes % Eosinophils % Basophils % Nucleated RBC % Absolute Neutrophils Absolute Lymphocytes Absolute Monocytes Absolute Eosinophils Absolute Basophils RBC Morphology Sodium Potassium Chloride Carbon Dioxide Anion Gap BUN Creatinine Estimated GFR/1.73 m2 Glucose Calcium Total Bilirubin AST ALT Alkaline Phosphatase Creatine Kinase Troponin I 131 H* NT-Pro-B Natriuret Pep Total Protein Albumin Lipase TSH Urine Color Urine Clarity Urine pH Ur Specific Como Urine Protein Urine Ketones Urine Blood Urine Nitrite Urine Bilirubin Urine Urobilinogen Ur Leukocyte Esterase Urine Glucose Urine Opiates Screen Urine Methadone Screen Ur Barbiturates Screen Ur Tricyclics Screen Ur Amphetamines Screen U Benzodiazepines Scrn Urine Cocaine Screen Ur THC Screen Ethyl Alcohol COVID-19 Source SARS-CoV-2 (PCR) Influenza Type A (PCR) Influenza Type B (PCR) RSV (PCR) Last Vital Signs Temp 38.0 C H 04/26/22 15:03 Pulse 87 04/26/22 15:03 Resp 22 04/26/22 15:03 BP 159/88 H 04/26/22 15:03 Pulse Ox 100 04/26/22 15:03
[2022-04-26] MEDS: Normal Saline Flush 10 ML SYR (19:12)
--- NOTE | 2022-04-26 19:21 | NUR.NOTE ---
RN places 20 gauge IV in right forearm since he lost his IV in left forearm.Nursing Note:
[2022-04-26 19:49] LABS: Troponin I 117 ng/L (<or=60)
[2022-04-27] VITALS (44 sets, daily range): BP systolic 156–170; BP diastolic 92–99; PULSE 63–102; RESP 12–39; TEMP 36.5–36.8; O2SAT 91–98
[2022-04-27] MEDS: PHENobarbital 130 MG/ML VIAL 260 MG IVP (01:04)
[2022-04-27 06:14] LABS: Abs Immature Grans 0.05 10^3/uL (0.0-0.06); Absolute Basophil Count 0.01 10^3/uL (0.0-0.2); Absolute Lymphocyte Count 1.55 10^3/uL (1.2-3.4); Absolute Monocyte Count 0.68 10^3/uL (0.1-0.8); Absolute Neutrophil Count 6.69 10^3/uL (1.2-6.7); Basophils % 0.1; HCT 41.8 % (40.0-50.0); HGB 15.1 g/dL (13.5-17.5); Immature Grans % 0.6; Lymphocytes % 17.3; MCH 32.2 pg (27.0-33.0); MCHC 36.1 % (32.0-36.0); MCV 89 fL (80-95); MPV 10.1 fL (8.0-11.0); Monocytes % 7.6; Neutrophils % 74.4; Platelet Count 212 10^3/uL (130-400); RBC 4.69 10^6/uL (4.36-5.78); RDW 11.9 % (11.8-14.1); RDW-SD 38.3 fL; WBC 8.98 10^3/uL (4.4-10.8)
[2022-04-27 06:29] LABS: Magnesium 1.6 mg/dL (1.8-2.4)
[2022-04-27 06:31] LABS: ALT 36 U/L (16-63); AST 31 U/L (15-37); Albumin 3.9 g/dL (3.4-5.0); Alkaline Phosphatase 76 U/L (46-116); BUN 12 mg/dL (7-18); Bilirubin, Total 0.4 mg/dL (0.2-1.0); CREATININE 0.8 mg/dL (0.70-1.30); Calcium 9.4 mg/dL (8.5-10.1); Chloride 100 mmol/L (98-107); Glucose 141 mg/dL (74-106); Sodium 134 mmol/L (136-145); Total Protein 7.4 g/dL (6.4-8.2)
--- NOTE | 2022-04-27 07:21 | NUR.NOTE ---
Order is obtained for EKG. RN performs EKG to determine if patient's QTC remains elongated because patient's methadone is being held because of elongated QTC.
--- NOTE | 2022-04-27 07:34 | NUR.NOTE ---
If patient cannot get his methadone dose this a.m. patient indicates he wants to sign out AMA. informed of same.Nursing Note:
--- NOTE | 2022-04-27 08:04 | NUR.NOTE ---
pt presenting as anxious this morning when asking for his dose of methadone. AM Dose on hold for prolonged QTC. Repeat EKG taken, Notified. Pt made aware that methadone dose was contraindicated and the risk of taking methadone in combination with other medications that were ordered could result in a Cardiac Event. pt continued to insist on receiving dose and elected to leave against medical advice. [facility] made aware of EKG Changes and last dose letter sent with pt.
--- NOTE | 2022-04-27 08:05 | NUR.NOTE ---
Nursing Note: At 0750 patient signs AMA form. RN dc's IV and escorts patient to front door lobby. Patient tells RN he will be going to [facility] to get his morning dose of Methadone since MD felt it contraindicated for him to receive same today because QTC of elongated QTC. Prior to patient leaving, RN met personally with Dr. Rogers who supplied RN with a last Methadone dose document that was given to patient. Dr. Rogers to send this EKG results to [facility] and speak with a medical professional at [facility] about his concerns regarding patient's morning dose being given to him by [facility] in view of his elongated QTC value. RN then calls patient's father, who called earlier for an update and provides him via leaving a message, with the latest information concerning patient signing out AMA and the contraindication of patient taking his morning Methadone dose today.
--- NOTE | 2022-04-27 08:22 | NUR.NOTE ---
RN receives call from patient's father who indicates patient called him and reported having difficulty breathing. Patient would like to be readmitted to hospital. Father is advised that he should collect his son and take him to the ED.Nursing Note:
--- NOTE | 2022-04-27 09:00 | RT.EKG_ITS ---
APPROVED REPORT Exam: Resting ECG Reason for Exam: QT prolongation Patient Location: I HR:68 bpm ECG Measurements Heart Rate 68 AXIS IA 143 P 56 QRSd 100 QRS 45 QT 595 T 25 QTc 634 Conclusion Sinus rhythm...normal P axis, V-rate 50- 99 Probable left atrial enlargement...P >50mS, <-0.10mV V1 Prolonged QT interval...QTc >500mS
--- NOTE | 2022-04-27 10:38 | DSE_ITS ---
Date of service: 04/27/22 Time of Service: 10:38 DS: Diagnosis Discharge Diagnosis (1) QT prolongation: Asessment and Plan: Likely methadone related. Pt clinically experiencing withdrawal; had takenhis AM dose of methadone, but states he also took a naltrexone and quickly developed diarrhea, rhinitis, agitation. The plan was to begin Inderal in an effort to shorten the QT interval. He left AMA Discussed his situation the a nurse at [facility] and sent his EKG to them. He will likely proceed to there to receive his dose of methadone. They are aware it's being held. (2) Acute opioid withdrawal: Status: Acute Asessment and Plan: See above. Cont clonidine. (3) Methadone dependence: Status: Chronic Asessment and Plan: As above. (4) HFrEF (heart failure with reduced ejection fraction): Status: Acute Asessment and Plan: No clinical evidence of acute failure. (5) Tobacco abuse: Status: Acute (6) ADD (attention deficit disorder): Status: Chronic (7) Depression with anxiety: Status: Acute Asessment and Plan: He has not divulged any suicidal ideations. On fluoxetine. (8) Alcohol abuse: Status: Inactive Asessment and Plan: + Etoh level on admission. Left AMA Discharge Plan Disposition Patient Disposition: AGAINST MEDICAL ADVICE Condition: Fair Discharge Details Reason For Visit: Pacreatitis,Alcohol Intoxication Admit Date/Time: 04/26/22 11:49 Admit Provider: Eugene Rogers Attending Provider: Eugene Rogers Primary Care Provider: Sophia Kelsey Hospital Course Hospital Course: This is a 41 yo male with a PMH of substance abuse on methadone, Etoh abuse with history of hospitalizations for withdrawal, cardiomyopathy with reduced EF of 45%, tobacco abbuse, depression and anxiety with suicidal ideations, HTN, ADD.? He presented to the ED with an unclear reason provided to the ED but did state he had diarrhea.? He was noted to have rhinorrhea and diarrhea.? He was agitated.? He did endorse taking his methadone that he picks up at [facility] that AM (this was verified later).? He denied diverting his medication.? He later stated he had taken naltrexone that he had previously been prescribed and then went into opiod withdrawal.? ED course: Temperature?34.9 C L?04/26/22 07:20Pulse?118 H?04/26/22 07:20Respiratory Rate?16?04/26/22 07:20Blood Pressure?134/114 H?04/26/22 07:20Pulse Oximetry?97?04/26/22 07:20 Etoh level was positive.? Lipase elevated, K was low.? + leukocytosis.? Troponin was 131 then 117.? No CP.? He was given 10mg methadone.? He was warmed and his temperature improved.? Clonidine 0.2mg po given His EKG was concerning for a QTc of >500mS. See Diagnosis for further details. Patient left AMA Home Meds and New Rx's Prescriptions: Continued clonidine HCl 0.1 mg tablet 0.1 mg PO BID Qty: 60 0RF fluoxetine 60 mg tablet 60 mg PO DAILY Qty: 30 1RF aspirin 81 mg Tablet,Delayed Release (Dr/Ec) 81 mg PO DAILY Qty: 30 0RF Metamucil Sugar-Free (aspart) 3.4 gram/5.8 gram Powder See Rx Instructions .ROUTE .COMPLEX Qty: 0 0RF Rx Instructions: 3.4 grams PO BID Held methadone 5 MG/5 ML solution 130 mg PO DAILY Hold Instructions: Discuss with PCP regarding use. QTc prolongation likely d/t methadone. Label Comments: Patient states he got his dose yesterday. Discharge Data Discharge Date/Time-TO BE ENTERED AT DEPARTURE: 04/27/22 08:00 DS: Summary Time Spent with Patient providing and/or coordinating discharge services: Less than 30 minutes Status at Discharge Functional status at discharge: independent ambulation Overall status at discharge: patient is not back to baseline Mental Status: mental status grossly normal Speech and Movement: speech and movement normal Mood: anxious mood and irritable mood Affect: anxious affect and irritable affect Exam Psych Mental Status: mental status grossly normal Speech and Movement: speech and movement normal Mood: anxious mood and irritable mood Affect: anxious affect and irritable affect DS: Data Vitals/I&O Vitals and I&O: Vital Signs Temperature 36.8 C 04/27/22 04:49 Temperature Source Temporal Artery Scan 04/27/22 04:49 Pulse 65 04/27/22 06:31 Pulse 71 04/27/22 06:50 Respiratory Rate 39 H 04/27/22 06:50 Respiratory Effort Non-Labored 04/27/22 04:49 Respiratory Depth Normal 04/27/22 04:49 Respiratory Pattern Normal 04/27/22 04:49 Blood Pressure 170/99 H 04/27/22 06:31 Blood Pressure Mean 117 04/27/22 06:31 Blood Pressure Position Supine 04/26/22 15:03 Pulse Oximetry 96 04/27/22 06:50 Oxygen Delivery Method Room Air 04/27/22 04:49 Oxygen Flow Rate 0 04/27/22 04:49 Pain Level 0 04/27/22 07:45 Comment 04/26/22 14:30 Intake & Output 04/26/22 04/26/22 04/27/22 11:59 23:59 11:59 Intake Total 1100 / 1850 750 / 1850 1475 / 1475 Output Total 375 / 375 475 / 475 Balance 1100 / 1475 375 / 1475 1000 / 1000 Weight 88.6 kg 79 kg Intake: IV 1100 / 1100 1000 / 1000 Oral 750 / 750 475 / 475 Output: Urine 375 / 375 475 / 475 Other: Urine Color Pale Pale Yellow Urine Appearance Clear Clear Urine Odor None None Stool Size Copious Stool Characteristics Liquid Voiding Methods Urinal Bedside Commode Data Completed and Pending Labs on day of discharge: Labs from last 24 hours 04/27/22 04/27/22 04/27/22 05:32 05:32 05:32 WBC 8.98 RBC 4.69 Hgb 15.1 Hct 41.8 MCV 89 MCH 32.2 MCHC 36.1 H D RDW 11.9 Plt Count 212 MPV 10.1 Immature Gran % 0.6 Neutrophils % 74.4 Lymphocytes % 17.3 Monocytes % 7.6 Eosinophils % 0.0 Basophils % 0.1 Nucleated RBC % 0.0 Absolute Neutrophils 6.69 Absolute Lymphocytes 1.55 Absolute Monocytes 0.68 Absolute Eosinophils 0.00 Absolute Basophils 0.01 Sodium 134 L Potassium 3.0 L Chloride 100 Carbon Dioxide 23.0 Anion Gap 11.0 BUN 12 Creatinine 0.8 Estimated GFR/1.73 m2 >= 60.00 Glucose 141 H Calcium 9.4 Magnesium 1.6 L Total Bilirubin 0.4 AST 31 ALT 36 Alkaline Phosphatase 76 Troponin I Total Protein 7.4 Albumin 3.9 Urine Color Urine Clarity Urine pH Ur Specific [place] Urine Protein Urine Ketones Urine Blood Urine Nitrite Urine Bilirubin Urine Urobilinogen Ur Leukocyte Esterase Urine Glucose Urine Opiates Screen Urine Methadone Screen Ur Barbiturates Screen Ur Tricyclics Screen Ur Amphetamines Screen U Benzodiazepines Scrn Urine Cocaine Screen Ur THC Screen 04/26/22 04/26/22 04/26/22 19:09 15:05 14:54 WBC RBC Hgb Hct MCV MCH MCHC RDW Plt Count MPV Immature Gran % Neutrophils % Lymphocytes % Monocytes % Eosinophils % Basophils % Nucleated RBC % Absolute Neutrophils Absolute Lymphocytes Absolute Monocytes Absolute Eosinophils Absolute Basophils Sodium Potassium Chloride Carbon Dioxide Anion Gap BUN Creatinine Estimated GFR/1.73 m2 Glucose Calcium Magnesium Total Bilirubin AST ALT Alkaline Phosphatase Troponin I 117 H* 131 H* Cancelled Total Protein Albumin Urine Color Urine Clarity Urine pH Ur Specific [place] Urine Protein Urine Ketones Urine Blood Urine Nitrite Urine Bilirubin Urine Urobilinogen Ur Leukocyte Esterase Urine Glucose Urine Opiates Screen Urine Methadone Screen Ur Barbiturates Screen Ur Tricyclics Screen Ur Amphetamines Screen U Benzodiazepines Scrn Urine Cocaine Screen Ur THC Screen 04/26/22 04/26/22 04/26/22 11:00 11:00 10:43 WBC RBC Hgb Hct MCV MCH MCHC RDW Plt Count MPV Immature Gran % Neutrophils % Lymphocytes % Monocytes % Eosinophils % Basophils % Nucleated RBC % Absolute Neutrophils Absolute Lymphocytes Absolute Monocytes Absolute Eosinophils Absolute Basophils Sodium Potassium Chloride Carbon Dioxide Anion Gap BUN Creatinine Estimated GFR/1.73 m2 Glucose Calcium Magnesium Total Bilirubin AST ALT Alkaline Phosphatase Troponin I 124 H* Total Protein Albumin Urine Color Yellow Urine Clarity Clear Urine pH 5.5 Ur Specific [place] 1.020 Urine Protein Negative Urine Ketones 15 H Urine Blood Negative Urine Nitrite Negative Urine Bilirubin Negative Urine Urobilinogen 0.2 Ur Leukocyte Esterase Negative Urine Glucose Negative Urine Opiates Screen Negative Urine Methadone Screen Positive A Ur Barbiturates Screen Negative Ur Tricyclics Screen Negative Ur Amphetamines Screen Negative U Benzodiazepines Scrn Negative Urine Cocaine Screen Negative Ur THC Screen Positive A 04/26/22 10:43 WBC RBC Hgb Hct MCV MCH MCHC RDW Plt Count MPV Immature Gran % Neutrophils % Lymphocytes % Monocytes % Eosinophils % Basophils % Nucleated RBC % Absolute Neutrophils Absolute Lymphocytes Absolute Monocytes Absolute Eosinophils Absolute Basophils Sodium 139 Potassium 3.1 L Chloride 106 Carbon Dioxide 19.4 L Anion Gap 13.6 H BUN 25 H Creatinine 0.8 Estimated GFR/1.73 m2 >= 60.00 Glucose 106 Calcium 8.3 L Magnesium Total Bilirubin AST ALT Alkaline Phosphatase Troponin I Total Protein Albumin Urine Color Urine Clarity Urine pH Ur Specific [place] Urine Protein Urine Ketones Urine Blood Urine Nitrite Urine Bilirubin Urine Urobilinogen Ur Leukocyte Esterase Urine Glucose Urine Opiates Screen Urine Methadone Screen Ur Barbiturates Screen Ur Tricyclics Screen Ur Amphetamines Screen U Benzodiazepines Scrn Urine Cocaine Screen Ur THC Screen 04/26/22 08:52 Blood Blood Culture - Pending Preliminary micro results at discharge 04/26/22 07:56 Blood Culture - Preliminary Blood NO GROWTH 24 HOURS 04/26/22 08:52 Blood Culture - Pending Blood PFSH All Active Problems (Updated 04/26/22 @ 18:23 by Eugene Rogers MD) Depression with anxiety (Acute) Acute opioid withdrawal (Acute) Hypokalemia (Acute) Diarrhea (Acute) Tobacco abuse (Acute 11/19/17) 1/2 ppd Hypertension (Chronic) ADD (attention deficit disorder) (Chronic) HFrEF (heart failure with reduced ejection fraction) (Acute) Anxiety (Chronic 09/05/17) Methadone dependence (Chronic 04/01/18) [facility] in [facility]. Hx intranasal and oral use of opioids. Meets with therapist twice monthly; has had take-home in the past. Medical History (Updated 04/26/22 @ 18:23 by Eugene Rogers MD) Closed right ankle fracture (~09/2019) COVID Depression with suicidal ideation Hospitalized at [facility] psych 02/15-02/26/22. Erectile dysfunction (10/03/17) Family history of diabetes mellitus (DM) (09/05/17) Gynecomastia, male (03/11/18) secondary to methadone Hyperglycemia (09/05/17) Hyperprolactinemia (04/15/18) Hypogonadism, male (03/24/18) Pending appt with Dr. Charles at [facility] in [place] Internal derangement of left knee QT prolongation Sprain of anterior cruciate ligament of left knee (~09/2019) Family History Mother Diabetes Cancer thyroid cancer Father Diabetes Essential hypertension Paternal Grandfather No problems noted. 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
== END 2022-04-27 08:00 | disposition left against medical advice (07) | DRG 918 ==
LOC: ER 12:04 → ICU 14:32
PROVIDERS: Admitting Provider Family Medicine; Emergency Provider Emergency Medicine; PCP Family Medicine; Visit Provider Family Medicine
DX: T40.3X1A Poisoning by methadone, accidental (unintentional), initial encounter (principal); F11.23 Opioid dependence with withdrawal; I50.20 Unspecified systolic (congestive) heart failure; R00.8 Other abnormalities of heart beat; I11.0 Hypertensive heart disease with heart failure; R94.31 Abnormal electrocardiogram [ECG] [EKG]; F10.10 Alcohol abuse, uncomplicated; F17.210 Nicotine dependence, cigarettes, uncomplicated; F98.8 Other specified behavioral and emotional disorders with onset usually occurring in childhood and adolescence; F41.8 Other specified anxiety disorders; E87.6 Hypokalemia; R19.7 Diarrhea, unspecified; Z86.16 Personal history of COVID-19; R74.8 Abnormal levels of other serum enzymes; Y90.5 Blood alcohol level of 100-119 mg/100 ml
CPT/HCPCS: 36415; 80048; 80053; 80307; 82550; 83690; 87040; 87637; 93005; 96361; 96375; 99285; J1650; 71045; 80320; 81003; 83735; 83880; 84443; 84484; 85025; 93010; 99223; 99238; J2060; J2405; J2560; J3480; J3490

== ENCOUNTER 2022-04-27 11:43 | Emergency (ER) | payer MEDICAID, SELFPAY ==
[2022-04-27] VITALS (36 sets, daily range): BP systolic 145–156; BP diastolic 87–105; PULSE 57–110; RESP 16–38; TEMP 37.3; O2SAT 95–99
--- NOTE | 2022-04-27 12:00 | RT.EKG_ITS ---
APPROVED REPORT Exam: Resting ECG Reason for Exam: detox Patient Location: E HR:87 bpm ECG Measurements Heart Rate 87 AXIS DE 137 P 44 QRSd 100 QRS 51 QT 525 T 16 QTc 633 Conclusion Sinus rhythm...normal P axis, V-rate 60- 99 Probable left atrial enlargement...P >50mS, <-0.10mV V1 Nonspecific repol abnormality, diffuse leads...ST dep, T flat/neg, ant/lat/inf Prolonged QT interval...QTc >500mS
[2022-04-27] MEDS: chlordiazePOXIDE 25 MG CAP PO (13:51)
[2022-04-27] MEDS: Propranolol 10 MG TAB PO (13:51)
[2022-04-27 13:58] LABS: Abs Immature Grans 0.03 10^3/uL (0.0-0.06); Absolute Basophil Count 0.01 10^3/uL (0.0-0.2); Absolute Monocyte Count 0.89 10^3/uL (0.1-0.8); Absolute Neutrophil Count 7.81 10^3/uL (1.2-6.7); Basophils % 0.1; HCT 43.7 % (40.0-50.0); HGB 15.4 g/dL (13.5-17.5); Immature Grans % 0.3; Lymphocytes % 18.6; MCH 31.5 pg (27.0-33.0); MCHC 35.2 % (32.0-36.0); MCV 89 fL (80-95); MPV 9.5 fL (8.0-11.0); Monocytes % 8.3; Neutrophils % 72.7; Platelet Count 259 10^3/uL (130-400); RBC 4.89 10^6/uL (4.36-5.78); RDW 11.7 % (11.8-14.1); RDW-SD 38.1 fL; WBC 10.74 10^3/uL (4.4-10.8)
[2022-04-27 14:22] LABS: ALT 41 U/L (16-63); AST 35 U/L (15-37); Albumin 4.3 g/dL (3.4-5.0); Alkaline Phosphatase 79 U/L (46-116); Anion Gap 13.1 mmol/L (3-11); BUN 14 mg/dL (7-18); Bilirubin, Total 0.4 mg/dL (0.2-1.0); CO2 23.9 mmol/L (21.0-32.0); CREATININE 0.8 mg/dL (0.70-1.30); Calcium 9.7 mg/dL (8.5-10.1); Chloride 100 mmol/L (98-107); Glucose 123 mg/dL (74-106); Potassium 3.1 mmol/L (3.5-5.1); Sodium 137 mmol/L (136-145); Total Protein 8.1 g/dL (6.4-8.2)
--- NOTE | 2022-04-27 14:27 | W.ED.GENAD ---
Discharge Plan Disposition Patient Disposition: HOME Condition: Stable Discharge Details Clinical Impression: Prolonged Q-T interval on ECG Primary Care Provider: Sophia Kelsey ED Provider: Kena Wilde Home Meds and New Rx's Prescriptions: New propranolol 20 mg tablet 20 mg PO BID 14 Days Qty: 28 0RF chlordiazepoxide HCl 25 mg capsule 25 mg PO BID PRN (Reason: alcohol withdrawal) Qty: 7 0RF Rx Instructions: Take twice daily as needed for tremors, and withdrawal symptoms. Do not take with alcohol Continued fluoxetine 60 mg tablet 60 mg PO DAILY Qty: 30 1RF aspirin 81 mg Tablet,Delayed Release (Dr/Ec) 81 mg PO DAILY Qty: 30 0RF Metamucil Sugar-Free (aspart) 3.4 gram/5.8 gram Powder See Rx Instructions .ROUTE .COMPLEX Qty: 0 0RF Rx Instructions: 3.4 grams PO BID Discontinued clonidine HCl 0.1 mg tablet 0.1 mg PO BID Qty: 60 0RF Discharge Instructions Instructions: Opioid Withdrawal (ED) Additional Instructions: Please stop taking the clonidine. Take the propranolol 20 mg twice daily instead of the clonidine. Take the Librium as directed do not drink alcohol while taking the Librium. Please follow-up with the [facility] early next week. Follow up with primary care provider in 3-5 days. Return to ED sooner if any worsening or concerns. Increase oral fluids. Please take Tylenol or Ibuprofen with food every 4-6 hours as needed for pain and swelling. Referrals: Sophia Kelsey MD [Primary Care Provider] - 5 days Discharge Data Discharge Date/Time-TO BE ENTERED AT DEPARTURE: 04/27/22 18:09 Medical Decision Making <Leobardo Guaman NP - Last Filed: 05/01/22 11:22> Patient presenting to the emergency department trip with his father due to methadone and alcohol withdrawal. Patient left emergency department AMA earlier today to attempt to get his dose of methadone but due to having prolonged QT they would not dose him. He did report that he went home and took a couple shots of alcohol before returning back to the emergency department. He is now requesting continued treatment. Patient denies any new or worsening symptoms, chest pain or discomfort at this time. Is reporting continued diarrhea. Beyond general agitation physical exam is otherwise unremarkable. Did review patient AMA notes and plan this morning was for patient to receive propanolol p.o. to see if this helps with his prolonged QT to then attempt dosing with methadone. Patient also requesting Librium as he states that this works better for his agitation for alcohol withdrawal compared to the phenobarbital. Called and spoke with hospitalist in regards to patient and we will plan on checking patient's labs in the emergency department, perform EKG, and giving patient Librium along with propranolol. Did speak to pharmacist due to patient receiving clonidine earlier and she stated that patient would need to be monitored till 7 PM due to rebound hypertension potential with medication interaction. Did suggest if patient needed read dosing or other medications labetalol may be a better med as it has both alpha and beta action. Please see physician interpretation of EKG for full EKG report but patient continues to have prolonged QT greater than 500. Review of patient's initial labs show a unremarkable CBC, slightly low potassium at 3.1 anion gap of 13.1 and unremarkable LFTs. Patient does not have any detectable alcohol in his system. Initial troponin is 73 which is still elevated per our normal limit but is decreased from troponin that was yesterday. <Kena Wilde NP - Last Filed: 04/27/22 23:03> Patient presenting to the emergency department trip with his father due to methadone and alcohol withdrawal. Patient left emergency department AMA earlier today to attempt to get his dose of methadone but due to having prolonged QT they would not dose him. He did report that he went home and took a couple shots of alcohol before returning back to the emergency department. He is now requesting continued treatment. Patient denies any new or worsening symptoms, chest pain or discomfort at this time. Is reporting continued diarrhea. Beyond general agitation physical exam is otherwise unremarkable. Did review patient AMA notes and plan this morning was for patient to receive propanolol p.o. to see if this helps with his prolonged QT to then attempt dosing with methadone. Patient also requesting Librium as he states that this works better for his agitation for alcohol withdrawal compared to the phenobarbital. Called and spoke with hospitalist in regards to patient and we will plan on checking patient's labs in the emergency department, perform EKG, and giving patient Librium along with propranolol. Did speak to pharmacist due to patient receiving clonidine earlier and she stated that patient would need to be monitored till 7 PM due to rebound hypertension potential with medication interaction. Did suggest if patient needed read dosing or other medications labetalol may be a better med as it has both alpha and beta action. Please see physician interpretation of EKG for full EKG report but patient continues to have prolonged QT greater than 500. Review of patient's initial labs show a unremarkable CBC, slightly low potassium at 3.1 anion gap of 13.1 and unremarkable LFTs. Patient does not have any detectable alcohol in his system. Initial troponin is 73 which is still elevated per our normal limit but is decreased from troponin that was yesterday. SJ: 1630: Care assumed from provider (Ventura Guaman NP) Please see their initial HPI, PE, and documentation. Discussed patient details and case and pending workup and disposition. Patient is hemodynamically stable, and alert and oriented. 1722: Patient reevaluation EKG continues to show prolonged QT syndrome however less pronounced than previously QTC is dropped to 599 from 633. Awaiting second troponin at this time.. 1728: Hospitalist paged for re-consult. Repeat troponin trending down at 67, patient is requesting alcohol withdrawal medication Librium. Blood pressure is 158/88. Will consider giving patient Librium and be discharged home with follow-up with art again. Discussed case with Dr. Rogers Hospitalist, he states he would recommend stopping the Clonidine, starting Propanolol 20mg BID, and patient given low dose Librium 25 mg TID prn. Discharged in hemodynamically stable condition instructed to follow-up with our clinic. This text was generated using [employer] ([employer]etary) dictation system, please disregard any oddities of phrase or misspellings. Medical Records Medical records reviewed: Yes I reviewed the patient's medical records. Lab Data Lab results reviewed: Yes I reviewed the patient's lab results. HPI <Leobardo Guaman NP - Last Filed: 05/01/22 11:22> General Mode of arrival: ambulatory. Date/Time Provider Initiated Documentation: 04/27/22 11:50. Limitations to Documentation: no limitations. Information obtained by: patient, family and RN notes reviewed. History of Present Illness 41 year old M presents to the emergency department with the chief complaint of Alcohol and opioid withdrawal, described as severe and similar to prior episodes, Related Data Home Medications Medication Instructions Recorded Confirmed aspirin 81 mg tablet,delayed 81 mg PO DAILY #30 tabs 02/02/22 04/27/22 release psyllium husk (aspartame) 3.4 See Rx Instructions .Route 02/02/22 04/27/22 gram/5.8 gram oral powder .COMPLEX #0 grams (Metamucil Sugar-Free (aspartame)) fluoxetine 60 mg tablet 60 mg PO DAILY #30 tabs 03/22/22 04/27/22 chlordiazepoxide HCl 25 mg capsule 25 mg PO BID PRN alcohol 04/27/22 withdrawal #7 caps propranolol 20 mg tablet 20 mg PO BID 14 days #28 tabs 04/27/22 Previous Rx's Medication Instructions Recorded aspirin 81 mg tablet,delayed 81 mg PO DAILY #30 tabs 02/02/22 release psyllium husk (aspartame) 3.4 See Rx Instructions .Route 02/02/22 gram/5.8 gram oral powder .COMPLEX #0 grams (Metamucil Sugar-Free (aspartame)) fluoxetine 60 mg tablet 60 mg PO DAILY #30 tabs 03/22/22 chlordiazepoxide HCl 25 mg capsule 25 mg PO BID PRN alcohol 04/27/22 withdrawal #7 caps propranolol 20 mg tablet 20 mg PO BID 14 days #28 tabs 04/27/22 Allergies Allergy/AdvReac Type Severity Reaction Status Date / Time No Known Allergies Allergy Verified 04/27/22 11:55 General Stated Complaint: DrugWithdr/MAT PACO: 2 Review of Systems <Leobardo Guaman NP - Last Filed: 05/01/22 11:22> Narrative: 8 systems reviewed and unremarkable except what is marked below. Cardiovascular Cardiovascular: Denies chest pain and Denies dyspnea Respiratory Respiratory: Denies dyspnea Gastrointestinal Gastrointestinal: Denies abdominal pain, Reports diarrhea, Denies nausea and Denies vomiting Psychiatric Psychiatric: Reports anxiety PFSH <Leobardo Guaman NP - Last Filed: 05/01/22 11:22> All Active Problems (Updated 04/27/22 @ 17:49 by Kena Wilde NP) Prolonged Q-T interval on ECG (Acute) Depression with anxiety (Acute) Acute opioid withdrawal (Acute) Hypokalemia (Acute) Diarrhea (Acute) Tobacco abuse (Acute 11/19/17) 1/2 ppd Hypertension (Chronic) ADD (attention deficit disorder) (Chronic) HFrEF (heart failure with reduced ejection fraction) (Acute) Anxiety (Chronic 09/05/17) Methadone dependence (Chronic 04/01/18) [facility] in [facility] Hx intranasal and oral use of opioids. Meets with therapist twice monthly; has had take-home in the past. Medical History (Updated 04/27/22 @ 17:49 by Kena Wilde NP) Closed right ankle fracture (~09/2019) COVID Depression with suicidal ideation Hospitalized at [facility] psych 02/15-02/26/22. Erectile dysfunction (10/03/17) Family history of diabetes mellitus (DM) (09/05/17) Gynecomastia, male (03/11/18) secondary to methadone Hyperglycemia (09/05/17) Hyperprolactinemia (04/15/18) Hypogonadism, male (03/24/18) Pending appt with Dr. Charles at [facility] in [place] Internal derangement of left knee QT prolongation Sprain of anterior cruciate ligament of left knee (~09/2019) Family History Mother Diabetes Cancer thyroid cancer Father Diabetes Essential hypertension Paternal Grandfather No problems noted. 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[employer], 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 Current gender identity: male Do you feel safe at home: Yes Do you feel safe in your relationship?: Yes Exam <Leobardo Guaman NP - Last Filed: 05/01/22 11:22> Const General: cooperative, no acute distress and not ill appearing Orientation: alert, awake and oriented x3 Resp Effort & Inspection: normal respiratory effort, able to speak in complete sentences and no respiratory distress Auscultation: clear to auscultation bilaterally Cardio Rate: regular rate and not tachycardic Rhythm: regular rhythm Heart Sounds: S1 normal and S2 normal Skin General skin exam: no rashes or lesions noted Neuro General: patient alert, patient awake, patient oriented x3, moves all extremities and no focal motor deficits Sensory Exam: no sensory deficits noted Psych Speech and Movement: agitated Mood: anxious mood Attitude: cooperative Course <Leobardo Guaman NP - Last Filed: 05/01/22 11:22> Vital Signs Vital signs: Vital Signs Temperature 37.3 C 04/27/22 11:50 Pulse 86 04/27/22 11:50 Respiratory Rate 18 04/27/22 11:50 Blood Pressure 156/87 H 04/27/22 11:50 Pulse Oximetry 97 04/27/22 11:50 Temperature 37.3 C 04/27/22 11:50 Temperature Source Temporal Artery Scan 04/27/22 11:50 Pulse 91 H 04/27/22 13:32 Pulse 110 H 04/27/22 13:50 Respiratory Rate 27 H 04/27/22 13:50 Respiratory Effort Non-Labored 04/27/22 11:55 Respiratory Pattern Normal 04/27/22 12:05 Blood Pressure 154/105 H 04/27/22 13:32 Blood Pressure Mean 115 04/27/22 13:32 Blood Pressure Position Sitting 04/27/22 11:50 Pulse Oximetry 97 04/27/22 13:50 Oxygen Delivery Method Room Air 04/27/22 11:50 Oxygen Flow Rate 0 04/27/22 11:50 Lab/Test Results Lab/Test Results: Laboratory Tests Range/Units 04/27/22 13:46 WBC (4.4-10.8) 10^3/uL 10.74 RBC (4.36-5.78) 10^6/uL 4.89 Hgb (13.5-17.5) g/dL 15.4 Hct (40.0-50.0) % 43.7 MCV (80-95) fL 89 MCH (27.0-33.0) pg 31.5 MCHC (32.0-36.0) % 35.2 D RDW (11.8-14.1) % 11.7 L Plt Count (130-400) 10^3/uL 259 MPV (8.0-11.0) fL 9.5 Immature Gran % 0.3 Neutrophils % 72.7 Lymphocytes % 18.6 Monocytes % 8.3 Eosinophils % 0.0 Basophils % 0.1 Nucleated RBC % (0.0-0.3) % 0.0 Absolute Neutrophils (1.2-6.7) 10^3/uL 7.81 H Absolute Lymphocytes (1.2-3.4) 10^3/uL 2.00 Absolute Monocytes (0.1-0.8) 10^3/uL 0.89 H Absolute Eosinophils (0.0-0.7) 10^3/uL 0.00 Absolute Basophils (0.0-0.2) 10^3/uL 0.01 Sign Out <Leobardo Guaman NP - Last Filed: 05/01/22 11:22> Sign Out Data: Sign Out Comment: Patient pending repeat troponin and repeat EKG around 5:00 and then reassessment of symptoms and QT before dispo with possible consideration of admission if troponin is elevated Last updated by Leobardo Guaman NP at 04/27/22 15:50
[2022-04-27 14:35] LABS: ETHANOL BLOOD < 3.0 mg/dL (<10)
[2022-04-27 14:38] LABS: Troponin I 73 ng/L (<or=60)
--- NOTE | 2022-04-27 16:30 | RT.EKG_ITS ---
APPROVED REPORT Exam: Resting ECG Reason for Exam: Repeat, leonard Qtc Patient Location: E HR:61 bpm ECG Measurements Heart Rate 61 AXIS ID 128 P 58 QRSd 97 QRS 42 QT 595 T 23 QTc 599 Conclusion Sinus rhythm...normal P axis, V-rate 60- 99 Prolonged QT interval...QTc >500mS
[2022-04-27] MEDS: Loperamide 2 MG CAP 4 MG PO (16:53)
[2022-04-27 17:24] LABS: Troponin I 67 ng/L (<or=60)
== END 2022-04-27 18:09 | disposition home or self-care (01) ==
PROVIDERS: Nurse Practitioner Family; Emergency Provider Registered Nurse Emergency; PCP Family Medicine
DX: R94.31 Abnormal electrocardiogram [ECG] [EKG] (principal); R45.1 Restlessness and agitation; R19.7 Diarrhea, unspecified; F17.210 Nicotine dependence, cigarettes, uncomplicated; Z86.16 Personal history of COVID-19
CPT/HCPCS: 36415; 80053; 93005; 99283; 80320; 84484; 85025; 93010

== ENCOUNTER 2022-05-10 13:25 | Outpatient (CLI) | payer MEDICAID, SELFPAY ==
--- NOTE | 2022-05-10 13:15 | RT.EKG_ITS ---
APPROVED REPORT Exam: Resting ECG Reason for Exam: Abnormal EKG Patient Location: O HR:84 bpm ECG Measurements Heart Rate 84 AXIS CA 135 P 53 QRSd 100 QRS 54 QT 384 T 26 QTc 445 Conclusion Sinus rhythm...normal P axis, V-rate 60- 99
== END 2022-05-10 13:26 | disposition home or self-care (01) ==
LOC: DI.CM 13:26
PROVIDERS: PCP Family Medicine; Visit Provider Physician Assistant
DX: R94.31 Abnormal electrocardiogram [ECG] [EKG] (principal)
CPT/HCPCS: 93010

== ENCOUNTER 2022-05-11 18:50 | Inpatient (IN) | payer MEDICAID, SELFPAY ==
[2022-05-11] VITALS (17 sets, daily range): BP systolic 122–164; BP diastolic 72–112; PULSE 88–106; RESP 19–29; TEMP 36.3; O2SAT 96–99
--- NOTE | 2022-05-11 18:54 | W.ED.GENAD ---
Discharge Plan Disposition Patient Disposition: [facility] INPATIENT Condition: Serious Discharge Details Clinical Impression: Suicidal ideation, Alcohol withdrawal, Opiate withdrawal Admit Date/Time: 05/11/22 23:13 Admit Provider: Boris Forman Attending Provider: Boris Forman Primary Care Provider: Sophia Kelsey ED Provider: Win Gleason Discharge Data Discharge Date/Time-TO BE ENTERED AT DEPARTURE: 05/12/22 00:35 Medical Decision Making <Luly Shafer DO - Last Filed: 05/11/22 20:28> 41yo M w/ a h/o substance abuse on methadone, Etoh abuse with history of hospitalizations for withdrawal, cardiomyopathy with reduced EF of 45%, tobacco abbuse, depression and anxiety with suicidal ideations, HTN, ADD presents with concern for alcohol and opiate withdrawal in addition to suicidal ideation and hallucinations. Blood pressure hypertensive on arrival at 164/104. BP now improved to 132/72. Heart rate initially 104, now 90s. EKG notes a rate of 95, sinus, no STEMI and nondiagnostic. Patient appears significantly anxious and minimally tremulous. He has superficial self-induced laceration to his left volar forearm. Will obtain screening labs, portable chest x-ray, give banana bag and Ativan IV for suspected possible alcohol withdrawal. Will have mental health evaluate once medically cleared. Case endorsed to Dr. Gleason to follow-up on labs and imaging and final disposition.? Medical Records Medical records reviewed: Yes I reviewed the patient's medical records. <Win Gleason DO - Last Filed: 05/12/22 03:09> 41yo M w/ a h/o substance abuse on methadone, Etoh abuse with history of hospitalizations for withdrawal, cardiomyopathy with reduced EF of 45%, tobacco abbuse, depression and anxiety with suicidal ideations, HTN, ADD presents with concern for alcohol and opiate withdrawal in addition to suicidal ideation and hallucinations. Blood pressure hypertensive on arrival at 164/104. BP now improved to 132/72. Heart rate initially 104, now 90s. EKG notes a rate of 95, sinus, no STEMI and nondiagnostic. Patient appears significantly anxious and minimally tremulous. He has superficial self-induced laceration to his left volar forearm. Will obtain screening labs, portable chest x-ray, give banana bag and Ativan IV for suspected possible alcohol withdrawal. Will have mental health evaluate once medically cleared. Case endorsed to Dr. Gleason to follow-up on labs and imaging and final disposition.? Dr. Gleason's documentation Case was signed out to me with plan to follow-up on labs and reassessment. Chest x-ray was negative for acute process, labs demonstrated no white count bandemia or left shift. Electrolytes were unremarkable. Troponin was minimally elevated at 70 and then 71. Urine drug screen was negative for cocaine though. EKG showed no STEMI. Patient denies any chest pain. He does have an elevated CIWA score, and does appear to be withdrawing clinically. He denies any current active suicidality. Dr. Shafer's plan was admission for withdrawal, he has been given IV Ativan already. Banana bag has been administered. Plan to admit for further medical management of his withdrawal, with recommendations for mental health evaluation in the morning after he has been medically cleared. Discussed the case with Dr. Forman, he agrees with the assessment and plan. I have extensively reviewed the treatment plan with the patient. I have addressed all patient concerns at this time. I have also discussed the plan with the admitting physician and they agree with the current assessment and plan and have agreed to assume responsibility for the patient. All parties demonstrate verbal understanding and agreement with our assessment and plan at this time. The documentation in this chart was dictated using [employer] dictation software. Please excuse any dictation errors. FINDINGS: Lungs: No consolidation. Pleural spaces: No pleural effusion. No pneumothorax. Absolute apex of the costophrenic angles excluded. Heart/Mediastinum: No cardiomegaly. Bones/joints: No acute fracture. IMPRESSION: Negative portable chest. Thank you for allowing us to participate in the care of your patient. Dictated and Authenticated by: Iram Ordoñez MD 05/11/2022 7:59 PM Eastern Time ([place] & [place]) HPI <Luly Shafer, DO - Last Filed: 05/11/22 20:28> General Mode of arrival: ambulatory. Date/Time Provider Initiated Documentation: 05/11/22 18:52. Limitations to Documentation: no limitations. Information obtained by: patient. HPI Narrative: Patient is a 41-year-old male with a h/o substance abuse on methadone, Etoh abuse with history of hospitalizations for withdrawal, cardiomyopathy with reduced EF of 45%, tobacco abbuse, depression and anxiety with suicidal ideations, HTN, ADD presents for concern for alcohol and opiate withdrawal with complaint of hallucinations and suicidal ideation. Patient states he drank 1/5 of vodka yesterday which is his usual daily intake. He states he did not leave the house yesterday as his ex-girlfriend's boyfriend called the DA who came to his house today. He states there were officers at his house but he feels that he was hallucinating and seeing additional SWAT teams and also balloons. He states while the police were there today at his house, he cut himself in his left forearm with a knife and held a knife to his throat and attempt to kill himself. He states his suicidal plan will be to cut his neck. He states he does not have access to firearms. He states he did drink a bottle of vanilla extract and some claudia today but feels he is going through alcohol withdrawal. He states his last dose of Suboxone was a couple days ago. He admits to feeling anxious, nauseous with headache. He states he thinks he does have a history of alcohol withdrawal seizures. Related Data Home Medications Medication Instructions Recorded Confirmed fluoxetine 60 mg tablet 60 mg PO DAILY #30 tabs 03/22/22 05/11/22 buprenorphine HCl 2 mg sublingual 16 mg sublingual DAILY 05/01/22 05/11/22 tablet olanzapine 10 mg tablet 10 mg PO DAILY #30 tabs 05/01/22 05/11/22 chlordiazepoxide HCl 25 mg capsule 25 mg PO BID PRN alcohol 05/02/22 05/10/22 withdrawal #7 caps quetiapine 50 mg tablet 50 mg PO BID #60 tabs 05/08/22 05/11/22 lisdexamfetamine 50 mg capsule 50 mg PO QAM #28 caps 05/10/22 clonidine HCl 0.1 mg tablet 0.1 tab PO BID 05/11/22 05/11/22 Previous Rx's Medication Instructions Recorded fluoxetine 60 mg tablet 60 mg PO DAILY #30 tabs 03/22/22 olanzapine 10 mg tablet 10 mg PO DAILY #30 tabs 05/01/22 chlordiazepoxide HCl 25 mg capsule 25 mg PO BID PRN alcohol 05/02/22 withdrawal #7 caps quetiapine 50 mg tablet 50 mg PO BID #60 tabs 05/08/22 lisdexamfetamine 50 mg capsule 50 mg PO QAM #28 caps 05/10/22 Allergies Allergy/AdvReac Type Severity Reaction Status Date / Time No Known Allergies Allergy Verified 05/11/22 18:58 General Stated Complaint: ETOHWithdr PACO: 2 Review of Systems <Luly Shafer DO - Last Filed: 05/11/22 20:28> All systems reviewed & are unremarkable except as noted in HPI and below Constitutional Constitutional: Denies chills, Denies excessive sweating, Denies fatigue, Denies fever(s), Denies weakness and Denies weight loss Eyes Eyes: Reports system reviewed and no additional complaints, except as documented and Denies blurry vision ENT Ears, Nose, Mouth, and Throat: Denies vertigo, Denies dizziness, Denies otalgia, Denies nasal congestion, Denies sore throat and Denies throat swelling Cardiovascular Cardiovascular: Denies chest pain, Denies syncope, Denies rapid heart rate and Denies dyspnea Respiratory Respiratory: Denies chest congestion, Denies cough, Denies pain on inspiration and Denies dyspnea Gastrointestinal Gastrointestinal: Denies abdominal pain, Denies diarrhea, Reports nausea and Denies vomiting Genitourinary Genitourinary: Denies hematuria, Denies dysuria and Denies flank pain Musculoskeletal Musculoskeletal: Denies back pain and Denies joint swelling Integumentary/Breasts Skin/Breast: Denies lesions and Denies rash Neurologic Neurologic: Denies behavioral changes, Denies confusion, Denies vertigo, Denies dizziness, Denies syncope, Denies localized weakness and Denies weakness Psychiatric Psychiatric: Denies behavioral changes, Denies confusion and Denies depression Endocrine Endocrine: Denies excessive sweating and Denies fatigue Hematologic/Lymphatic Hematologic/Lymphatic: Denies easy bruising and Denies lymphadenopathy Allergic/Immunologic Allergic/Immunologic: Denies throat swelling PFSH <Luly Shafer DO - Last Filed: 05/11/22 20:28> All Active Problems Opioid dependence in remission (Acute) Cardiomyopathy (Acute) Elevated troponin level not due to acute coronary syndrome (Acute) Polysubstance abuse (Acute) Suicidal ideation (Acute) Alcohol withdrawal (Acute) Opiate withdrawal (Acute) Alcohol abuse (Chronic) Prolonged Q-T interval on ECG (Acute) Depression with anxiety (Acute) Acute opioid withdrawal (Acute) Hypokalemia (Acute) Diarrhea (Acute) Tobacco abuse (Acute 11/19/17) 1/2 ppd Hypertension (Chronic) ADD (attention deficit disorder) (Chronic) HFrEF (heart failure with reduced ejection fraction) (Acute) Anxiety (Chronic 09/05/17) Methadone dependence (Chronic 04/01/18) [facility] in [facility] Hx intranasal and oral use of opioids. Meets with therapist twice monthly; has had take-home in the past. Medical History Closed right ankle fracture (~09/2019) COVID Depression with suicidal ideation Hospitalized at [facility] psych 02/15-02/26/22. Erectile dysfunction (10/03/17) Family history of diabetes mellitus (DM) (09/05/17) Gynecomastia, male (03/11/18) secondary to methadone Hyperglycemia (09/05/17) Hyperprolactinemia (04/15/18) Hypogonadism, male (03/24/18) Pending appt with Dr. Charles at [facility] in [place] Internal derangement of left knee QT prolongation Sprain of anterior cruciate ligament of left knee (~09/2019) Family History Mother Diabetes Cancer thyroid cancer Father Diabetes Essential hypertension Paternal Grandfather No problems noted. 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, 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 [employer] Current gender identity: male Do you feel safe at home: Yes Do you feel safe in your relationship?: Yes Exam <Luly Shafer DO - Last Filed: 05/11/22 20:28> Const General: cooperative and anxious Orientation: alert, awake and oriented x3 HENMT Head: normal to inspection Ears: hearing grossly normal bilaterally and external ears normal General nose exam: external nose normal Face and sinus: normal facial exam Mouth: oral mucosae normal Teeth and gingiva: poor dentition Throat: posterior oropharynx normal Eyes General: appearance normal, both eyes and all related structures Eyelids: eyelids normal Pupils: PERRL EOM: EOM intact bilaterally Neck Neck: normal visual inspection Lymphatic: no lymphadenopathy noted Chest Chest: normal inspection of the chest Resp Effort & Inspection: normal respiratory effort and able to speak in complete sentences Auscultation: clear to auscultation bilaterally Cardio Rate: tachycardic Rhythm: regular rhythm GI Inspection: normal to inspection Palpation: soft, not firm, no guarding, no hepatosplenomegaly, no masses and nontender Auscultation: normal bowel sounds Back/Spine/Pelvis Back: no CVA tenderness Skin General skin exam: no rashes or lesions noted Neuro General: patient alert, patient awake, moves all extremities and no meningeal signs Cognition: normal cognition Speech: speech normal Gait: normal gait Motor: muscle tone normal throughout Sensory Exam: no sensory deficits noted Extrem General: normal to inspection, full ROM, capillary refill normal and no edema Psych Appearance: grossly normal Mental Status: mental status grossly normal Speech and Movement: speech and movement normal Affect: normal affect Thought Process: normal Sign Out <Luly Shafer DO - Last Filed: 05/11/22 20:28> Sign Out Data: Sign Out Comment: Follow up on labs and imaging and final disposition. Will need evaluation by mental health once medically cleared. Last updated by Luly Shafer DO at 05/11/22 19:53
--- NOTE | 2022-05-11 19:15 | RT.EKG_ITS ---
APPROVED REPORT Exam: Resting ECG Reason for Exam: possible etoh withdrawal Patient Location: E HR:95 bpm ECG Measurements Heart Rate 95 AXIS SC 140 P 55 QRSd 96 QRS 35 QT 393 T 4 QTc 493 Conclusion Sinus rhythm...normal P axis, V-rate 60- 99 Physician: no stemi, inverted t wave in lead III
--- NOTE | 2022-05-11 19:30 | DI.RAD_ITS ---
Exam(s) XR PORTABLE CHEST AP EXAM: XR PORTABLE CHEST AP CLINICAL HISTORY: tachycardia, r/o acute disease. TECHNIQUE: 2D digital imaging was performed. COMPARISON: CR XR PORTABLE CHEST AP from 04/26/2022 FINDINGS: Single AP portable view. Heart size is upper normal. The mediastinum is not widened. Lungs are clear. No infiltrates nor obvious pleural effusions. IMPRESSION: No acute pulmonary findings on this single AP portable view of the chest. DATA REPOSITORY: RADIATION DOSE DELIVERED: All CT scans at this facility use at least one of these dose optimization techniques: automated exposure control; mA and/or kV adjustment per patient size (includes targeted e xams where dose is matched to clinical indication); or iterative reconstruction.
--- NOTE | 2022-05-11 19:59 | DI.VRAD_ITS ---
PROCEDURE INFORMATION: Exam: XR Chest Exam date and time: 05/11/2022 19:30 Age: 41 years old Clinical indication: Patient HX: Tachycardia, R/O acute disease TECHNIQUE: Imaging protocol: Radiologic exam of the chest. Views: 1 view. COMPARISON: CR XR PORTABLE CHEST AP 04/26/2022 08:13 FINDINGS: Lungs: No consolidation. Pleural spaces: No pleural effusion. No pneumothorax. Absolute apex of the costophrenic angles excluded. Heart/Mediastinum: No cardiomegaly. Bones/joints: No acute fracture. IMPRESSION: Negative portable chest. Dictated and Authenticated by: Iram Ordoñez MD. Ordering:STEVEN Mauricio MD
[2022-05-11] MEDS: MAGNESIUM SULFATE 8.12 MEQ, MULTIVITAMIN 10 ML, THIAMINE 100 MG, FOLIC ACID 1 MG in Nor... 168.867 MG IV (20:50)
[2022-05-11] MEDS: LORazepam 2 MG/ML VIAL 0.5 MG IVP (20:50)
[2022-05-11] MEDS: Normal Saline 1,000 ML 1000 ML IV (20:50)
[2022-05-11 20:52] LABS: Abs Immature Grans 0.02 10^3/uL (0.0-0.06); Absolute Basophil Count 0.03 10^3/uL (0.0-0.2); Absolute Eosinophil Count 0.03 10^3/uL (0.0-0.7); Absolute Lymphocyte Count 2.28 10^3/uL (1.2-3.4); Absolute Monocyte Count 0.65 10^3/uL (0.1-0.8); Absolute Neutrophil Count 6.42 10^3/uL (1.2-6.7); Basophils % 0.3; Eosinophils % 0.3; HCT 37.9 % (40.0-50.0); Immature Grans % 0.2; Lymphocytes % 24.2; MCHC 34.3 % (32.0-36.0); MCV 93 fL (80-95); MPV 8.7 fL (8.0-11.0); Monocytes % 6.9; Neutrophils % 68.1; Platelet Count 194 10^3/uL (130-400); RBC 4.06 10^6/uL (4.36-5.78); RDW 13.4 % (11.8-14.1); RDW-SD 45.2 fL; WBC 9.43 10^3/uL (4.4-10.8)
[2022-05-11 21:10] LABS: ALT 50 U/L (16-63); AST 63 U/L (15-37); Albumin 3.9 g/dL (3.4-5.0); Alkaline Phosphatase 94 U/L (46-116); Anion Gap 11.5 mmol/L (3-11); BUN 13 mg/dL (7-18); Bilirubin, Total 0.6 mg/dL (0.2-1.0); CO2 25.5 mmol/L (21.0-32.0); CREATININE 0.7 mg/dL (0.70-1.30); Calcium 9.3 mg/dL (8.5-10.1); Chloride 102 mmol/L (98-107); Glucose 106 mg/dL (74-106); Magnesium 1.9 mg/dL (1.8-2.4); Potassium 3.4 mmol/L (3.5-5.1); Sodium 139 mmol/L (136-145); Total Protein 7.2 g/dL (6.4-8.2)
[2022-05-11 21:11] LABS: Troponin I 70 ng/L (<or=60)
[2022-05-11] MEDS: Aspirin 325 MG TAB PO (21:55)
--- NOTE | 2022-05-11 23:09 | W.PM.HP.N ---
Date of service: 05/11/22 Time of Service: 23:10 Assessment and Plan Assessment and plan (1) Suicidal ideation: Start date: 05/11/22 Status: Acute Assessment and plan: This is a 41-year-old gentleman with suicidal ideation and cutting loss was having alcohol withdrawal having run out of his usual vodka supply. He has been trying to substitute with other lower level alcohol products and is actively tremulous and withdrawing. He is on Ativan and this will be continued with CIWA protocol. He will be seen by mental health for possible inpatient care for suicidal ideation and substance abuse treatment with patient stating that he will go voluntarily. He usually has supervision with his parents out of town recently but he has family and neighbors who called police for help. He is a full code. (2) Alcohol withdrawal: Start date: 05/11/22 Status: Acute Assessment and plan: [facility] protocol with Ativan coverage. Seizure precautions. Long-term inpatient and outpatient treatment. (3) Alcohol abuse: Status: Chronic Assessment and plan: Patient will need to go through alcohol rehabilitation prognosis poor with recurrent issues. (4) Polysubstance abuse: Status: Chronic Assessment and plan: Presently on Suboxone with plans for continued outpatient treatment. This also could be addressed as an inpatient acutely. Patient has not used cocaine recently and does have chronic elevated troponins with cardiomyopathy which is asymptomatic. (5) Elevated troponin level not due to acute coronary syndrome: Status: Chronic Assessment and plan: Chronic elevation with cardiomyopathy asymptomatic. Monitor clinically with no need to trend. Long-term follow-up with cardiology. (6) Cardiomyopathy: Status: Chronic Assessment and plan: Chronic elevation with cardiomyopathy asymptomatic. Monitor clinically with no need to trend. Long-term follow-up with cardiology. (7) Hypertension: Status: Chronic Assessment and plan: Monitor while hospitalized with replacement of potassium. Treat if needed. Patient could be on beta-patricia long-term. Qualifiers: Hypertension type: essential hypertension Qualified Code(s): I10 - Essential (primary) hypertension (8) ADD (attention deficit disorder): Status: Chronic Assessment and plan: Continue Vyvanse and follow-up with psychiatry long-term. Qualifiers: Attention deficit-hyperactivity disorder type: predominantly hyperactive Hyperactivity presence: present Qualified Code(s): F90.1 - Attention-deficit hyperactivity disorder, predominantly hyperactive type (9) Opioid dependence in remission: Status: Chronic Assessment and plan: Continue Suboxone and clonidine. (10) Hypokalemia: Status: Chronic Assessment and plan: This may be nutritional and patient will be repleted with oral following labs and adjusting as needed. He does not appear to be on diuretics with his cardiomyopathy. History of Present Illness History of Present Illness Chief Complaint: Alcohol withdrawal with suicidal ideation and polysubstance abuse Narrative: This is a 41-year-old male patient who has a long history of substance abuse previously on methadone now on Suboxone who drinks half a gallon of vodka sometimes daily stating that he has not drunk alcohol for now more than 24 hours and is having alcohol withdrawal. He presented to the ED for evaluation after having abnormal behavior at home alone with his parents out of town with whom he lives and having ex-girlfriend's boyfriend call the police or neighbors called police to evaluate his status. He was doing superficial cutting of his left forearm and having the knife to his neck according to patient and has suicidal ideation. He does want to see psychiatric care team and is willing to have inpatient psychiatric and substance abuse care at this time. Presently he is having active withdrawals and will be admitted for alcohol withdrawal syndrome. He does have a history of cardiomyopathy, hypertension and chronically elevated troponin and this appears to be stable with no cardiovascular complaints. Patient does have ADD and is on multiple medications and is questionable on his compliance. He does use nicotine and does want a NicoDerm patch placed during this hospital stay. The patient overall has been having hallucinations and has a history of PTSD along with his ADD. He was drinking vanilla extract as a substitute for his usual vodka and also has some Brianna the day of admission. His alcohol level was measured in the ED and was not present with the patient having severe tremulousness on Ativan in the ED. He was somewhat more stable upon admission. He offers no new history. ED report was reviewed. Patient is a full code. His cutting over his left forearm was only superficial not requiring sutures and he had no injury to his neck where he stated that he held the knife when threatening suicide with the police. Review of Systems Narrative: 13 point systems otherwise were stable with patient having chronic multiple somatic complaints [facility] All Active Problems (Updated 05/12/22 @ 13:52 by Boris Forman) Discharge planning issues (Acute) DVT prophylaxis (Acute) Rhabdomyolysis (Acute) Opioid dependence in remission (Chronic) Cardiomyopathy (Chronic) Elevated troponin level not due to acute coronary syndrome (Chronic) Polysubstance abuse (Chronic) Suicidal ideation (Acute) Alcohol withdrawal (Acute) Opiate withdrawal (Acute) Alcohol abuse (Chronic) Prolonged Q-T interval on ECG (Acute) Depression with anxiety (Acute) Acute opioid withdrawal (Acute) Hypokalemia (Chronic) Diarrhea (Acute) Tobacco abuse (Acute 11/19/17) 1/2 ppd Hypertension (Chronic) ADD (attention deficit disorder) (Chronic) HFrEF (heart failure with reduced ejection fraction) (Acute) Anxiety (Chronic 09/05/17) Methadone dependence (Chronic 04/01/18) [facility] in [facility] Hx intranasal and oral use of opioids. Meets with therapist twice monthly; has had take-home in the past. Medical History Closed right ankle fracture (~09/2019) COVID Depression with suicidal ideation Hospitalized at [facility] psych 02/15-02/26/22. Erectile dysfunction (10/03/17) Family history of diabetes mellitus (DM) (09/05/17) Gynecomastia, male (03/11/18) secondary to methadone Hyperglycemia (09/05/17) Hyperprolactinemia (04/15/18) Hypogonadism, male (03/24/18) Pending appt with Dr. Charles at [facility] in [place] Internal derangement of left knee QT prolongation Sprain of anterior cruciate ligament of left knee (~09/2019) Family History Mother Diabetes Cancer thyroid cancer Father Diabetes Essential hypertension Paternal Grandfather No problems noted. 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, 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 Current gender identity: male Do you feel safe at home: Yes Do you feel safe in your relationship?: Yes Meds Allergies and Home Medications Allergies Allergy/AdvReac Type Severity Reaction Status Date / Time No Known Allergies Allergy Verified 05/11/22 18:58 Home Medications Medication Instructions Recorded Confirmed Type fluoxetine 60 mg tablet 60 mg PO DAILY #30 tabs 03/22/22 05/11/22 Rx buprenorphine HCl 2 mg sublingual 16 mg sublingual DAILY 05/01/22 05/11/22 History tablet olanzapine 10 mg tablet 10 mg PO DAILY #30 tabs 05/01/22 05/11/22 Rx chlordiazepoxide HCl 25 mg capsule 25 mg PO BID PRN alcohol 05/02/22 05/10/22 Rx withdrawal #7 caps quetiapine 50 mg tablet 50 mg PO BID #60 tabs 05/08/22 05/11/22 Rx lisdexamfetamine 50 mg capsule 50 mg PO QAM #28 caps 05/10/22 Rx clonidine HCl 0.1 mg tablet 0.1 tab PO BID 05/11/22 05/11/22 History Exam Narrative Exam Narrative: General: Patient appears appropriate for age, anxious and tremulous with pressured speech and wandering topic of conversation. He is alert and oriented at least to person and place. He is in moderate distress from his tremors and alcohol withdrawal. HEENT: Normocephalic, eyes with pupils equal and reactive light symmetrically, extraocular movement intact and sclera anicteric. Oral mucosa was moist with fair dentition. Neck: Supple without JVD. Lungs: Fair aeration with bronchovesicular breath sounds diffusely and no expiratory wheeze. No focalizing rales or rhonchi. Back: Stooped posture without CVA tenderness. Heart: Regular rate and rhythm borderline tachycardic with no murmurs or gallops appreciated. Abdomen: Normal contour with no palpable hepatosplenomegaly. Genitalia/rectal: Exam deferred. Extremities: Without clubbing, cyanosis or pitting edema. Peripheral pulses intact. Superficial linear lacerations over the patient's volar forearm without active bleeding and not requiring intervention. They run along the length of the forearm and not crosswise as 1 would see with patient trying to cut his arteries. Skin: Pale, warm and dry. Neuro: Cranial nerves II through XII gross intact, no focalizing motor deficits. Tremulous diffusely. Psych: Very anxious with pressured speech and tangential thought processes. No abnormal thought processes during conversation though these were reported by ED physician. Remote and recent memory appear to be grossly intact. Patient does wander and speech and is a poor historian. Results Labs Result diagrams: 05/12/22 05:20 05/12/22 05:20 Labs: Laboratory Results - last 24 hr 05/11/22 05/11/22 20:45 20:45 WBC 9.43 RBC 4.06 L Hgb 13.0 L Hct 37.9 L MCV 93 MCH 32.0 MCHC 34.3 RDW 13.4 Plt Count 194 MPV 8.7 Immature Gran % 0.2 Neutrophils % 68.1 Lymphocytes % 24.2 Monocytes % 6.9 Eosinophils % 0.3 Basophils % 0.3 Nucleated RBC % 0.0 Absolute Neutrophils 6.42 Absolute Lymphocytes 2.28 Absolute Monocytes 0.65 Absolute Eosinophils 0.03 Absolute Basophils 0.03 Sodium 139 Potassium 3.4 L Chloride 102 Carbon Dioxide 25.5 Anion Gap 11.5 H BUN 13 Creatinine 0.7 Estimated GFR/1.73 m2 >= 60.00 Glucose 106 Calcium 9.3 Magnesium 1.9 Total Bilirubin 0.6 AST 63 H ALT 50 Alkaline Phosphatase 94 Troponin I 70 H* Total Protein 7.2 Albumin 3.9 Last Vital Signs Temp 36.3 C L 05/11/22 18:49 Pulse 104 H 05/11/22 18:49 Resp 24 05/11/22 18:49 BP 164/104 H 05/11/22 18:49 Pulse Ox 99 05/11/22 18:49 PAWSS Have you Been Recently Intoxicated or Drunk Within the Last 30 days?: Yes Have you Ever Experienced Previous Episodes of Alcohol Withdrawal?: Yes Have you ever Experienced Withdrawal Seizures?: Yes Have you ever Experienced Delirium Tremens(DT)s?: Yes Have you ever undergone Alcohol Rehabilitation Treatment (i.e, inpt ot outpatient treatment programs)?: Yes Have you ever Experienced Blackouts?: Yes Have you ever Combined Alcohol with other Downers within the last 90 days?: No Have you ever Combined Alcohol with any other Substance of Abuse during the last 90 days?: No Result: 6
[2022-05-11] MEDS: LORazepam 2 MG/ML VIAL IVP (23:29)
[2022-05-11 23:43] LABS: ETHANOL BLOOD < 3.0 mg/dL (<10)
[2022-05-11 23:52] LABS: Bilirubin Negative (Negative); Blood Negative (Negative); Clarity Clear (Clear); Glucose Negative (Negative); Ketones 40 mg/dL (Negative); Leukocyte Esterase Negative (Negative); Nitrite Negative (Negative); Specific Gravity 1.025 (1.005-1.025); Urobilinogen 0.2 EU/dL (Up TO 0.2); pH 6.5 (5-8)
[2022-05-11 23:59] LABS: Source Nasal/Nares
[2022-05-12] VITALS (19 sets, daily range): BP systolic 103–162; BP diastolic 69–102; PULSE 65–95; RESP 12–26; TEMP 35.8–36.8; O2SAT 97–100
[2022-05-12 00:05] LABS: *AMPHETAMINES SCREEN URINE Positive (Negative); *BARBITURATES SCREEN URINE Positive (Negative); *BENZODIAZEPINES SCREEN URINE Positive (Negative); Cannabinoids THC Negative (Negative); Cocaine Screen,Urine Negative (Negative); METHADONE URINE SCREEN Negative (Negative); OPIATES URINE SCREEN Negative (Negative); Tricyclic Antidepressants Negative (Negative)
[2022-05-12 00:26] LABS: Troponin I 71 ng/L (<or=60)
[2022-05-12 00:50] LABS: COVID-19 PCR Negative (Negative)
[2022-05-12] MEDS: LORazepam 1 MG TAB PO/SL ×5 (01:09→18:36)
[2022-05-12] MEDS: Acetaminophen 325 MG TAB 650 MG PO (01:09)
[2022-05-12] MEDS: Potassium Chloride 20 MEQ TABCR 40 MEQ PO (01:09)
[2022-05-12] MEDS: Normal Saline Flush 10 ML SYR IVP ×2 (03:10→08:03)
[2022-05-12 05:57] LABS: Abs Immature Grans 0.01 10^3/uL (0.0-0.06); Absolute Basophil Count 0.02 10^3/uL (0.0-0.2); Absolute Eosinophil Count 0.14 10^3/uL (0.0-0.7); Absolute Lymphocyte Count 2.37 10^3/uL (1.2-3.4); Absolute Monocyte Count 0.52 10^3/uL (0.1-0.8); Absolute Neutrophil Count 3.33 10^3/uL (1.2-6.7); Basophils % 0.3; Eosinophils % 2.2; HCT 39.9 % (40.0-50.0); HGB 13.7 g/dL (13.5-17.5); Immature Grans % 0.2; Lymphocytes % 37.1; MCH 31.9 pg (27.0-33.0); MCHC 34.3 % (32.0-36.0); MCV 93 fL (80-95); MPV 8.9 fL (8.0-11.0); Monocytes % 8.1; Neutrophils % 52.1; Platelet Count 188 10^3/uL (130-400); RBC 4.29 10^6/uL (4.36-5.78); RDW 13.3 % (11.8-14.1); RDW-SD 44.9 fL; WBC 6.39 10^3/uL (4.4-10.8)
[2022-05-12 06:23] LABS: ALT 64 U/L (16-63); AST 72 U/L (15-37); Albumin 3.7 g/dL (3.4-5.0); Alkaline Phosphatase 95 U/L (46-116); Bilirubin, Direct 0.2 mg/dL (0.0-0.2); Bilirubin, Total 0.9 mg/dL (0.2-1.0); PHOSPHORUS 2.8 mg/dL (2.6-4.7); Total Protein 6.9 g/dL (6.4-8.2)
[2022-05-12 06:25] LABS: Troponin I 70 ng/L (<or=60)
--- NOTE | 2022-05-12 07:01 | NUR.NOTE ---
Nursing Note: ARound 0500 when this RN was completing CIWA assessment on patient, pt was asking about his subutex for the morning expressing concern that he would be able to receive his dose. this rn reassured him that the dose was ordered, verified, and scheduled for the morning. the patient then said well i'm just saying in my experience that it has to be verified and if i dont get it then i'll shoot you this RN said you cant threaten me pt then said well that's not what i meant its a saying. you know like shoot the bearer of bad news RN reiterated that pt cannot threaten staff and that was inappropriate. pt apologized and said thats not what he meant. 1:1 JAYDEN Villafana in room and heard this exchange
[2022-05-12 07:15] LABS: ALT 69 U/L (16-63); AST 73 U/L (15-37); Albumin 3.7 g/dL (3.4-5.0); Alkaline Phosphatase 95 U/L (46-116); Anion Gap 11.2 mmol/L (3-11); BUN 11 mg/dL (7-18); Bilirubin, Total 0.8 mg/dL (0.2-1.0); CO2 24.8 mmol/L (21.0-32.0); CREATININE 0.7 mg/dL (0.70-1.30); Calcium 8.9 mg/dL (8.5-10.1); Chloride 102 mmol/L (98-107); Glucose 108 mg/dL (74-106); Potassium 3.7 mmol/L (3.5-5.1); Sodium 138 mmol/L (136-145); Total Protein 6.9 g/dL (6.4-8.2)
[2022-05-12] MEDS: Nicotine 14 MG/24 HR PATCH TD (08:02)
[2022-05-12] MEDS: Enoxaparin 40 MG/0.4 ML SYR SC (08:03)
[2022-05-12] MEDS: Folic Acid 1 MG TAB PO (08:04)
[2022-05-12] MEDS: Multivitamin TAB 1 TAB PO (08:04)
[2022-05-12] MEDS: QUEtiapine 50 MG TAB PO ×2 (08:04→21:00)
[2022-05-12] MEDS: Thiamine 100 MG TAB PO (08:04)
[2022-05-12] MEDS: Potassium Chloride 10 MEQ TABCR PO ×2 (08:04→21:00)
[2022-05-12] MEDS: FLUoxetine 20 MG CAP 60 MG PO (08:04)
[2022-05-12] MEDS: cloNIDine 0.1 MG TAB PO ×2 (08:04→20:59)
[2022-05-12] MEDS: OLANZapine 10 MG TAB PO (08:04)
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
--- NOTE | 2022-05-12 10:03 | CMSP_ITS ---
- If Service Date Differs Date of service: 05/12/22 Time of Service: 10:04 Care Management Safety Plan Status: Voluntary - Guarianship if Applicable Guardianship: Other - Reason for Wait Reason for Wait: Inpatient Admission VOLUNTARY FOR INPATIENT PSYCHIATRIC STABILIZATION. Patient is appropriate in all interactions since arriving at [facility]; Pt has demonstrated appropriate coping and communication skills, has articulated his or her needs and concerns and is fully engaged during staff interactions. Safety plan has been established with patient, and care team, to adhere to patient goals, identify restrictions based on behavioral status, address nutrition, and determine allowed personal belongings, tools for hygiene and personal care. Determine level of activity including ambulation, level of supervision, visitors, and determine privileges based on behaviors and level of engagement by pt. SAFETY PLAN: 1. Will remain on suicide precautions. In Paper Clothes 2. Will remain in room under direct supervision of one-on-one staff at all times provided by [employer]; JAYDEN, [employer] TERMINAL OPERATOR ar[employer] end [employer] former. 3. May have paper cups, plates, finger foods as well as a cardboard spoon with which to eat meals. 4. Follow [facility] Management of the Admitted Behavioral Health Patient policy. 5. Comfort bath system only, shower permitted with escort at RN discretion. 6. No personal belongings-soft items permitted at RN discretion. 7. Visitors-none at this time. 8. Activities: soft cart items approved per RN discretion. 9. Bathroom privileges with escort in the ED, available in room without limitation on M/S. 10. Phone: contact limited to family at this time, via cordless phone at RN discretion. 11. Due to VOLUNTARY status, if patient wishes to leave [facility], staff will contact [facility] Crisis Screener ([phone]) and On-Call Brick Molder Hand ([phone]) as soon as possible. In the event of elopement, notify [facility] Police ([phone]). Patient is currently voluntarily at [facility] and seeking inpatient admission when a bed becomes available. [facility] Frontline Senior Account Manager will continue seeking placement. Please contact the [employer] Brick Molder Hand ([phone]) and [facility] Senior Account Manager ([phone]) for any needed changes in the Safety Plan. Safety plan has been provided to interdepartmental care team.
[2022-05-12 11:20] LABS: Lab Add On Test DONE
[2022-05-12 11:47] LABS: Creatine Kinase 2043 U/L (39-308)
--- NOTE | 2022-05-12 12:32 | W.PM.PROGNOT ---
Date of Service Date of service: 05/12/22 Time of Service: 12:32 Assessment and Plan Assessment and plan (1) Alcohol withdrawal: Status: Acute Assessment and plan: The patient refuses phenobarbital therapy. Will have him sign a document, as he had volunteered to do. Will tx with scheduled librium and prn po/sl ativan. He looks stable for medical surgical floor for now, but does have a h/o EtOH w/d seizures, and threshold to transfer to the ICU is low. He does have an elevated CPK on this admission, suggesting he may, in fact, have had a seizure as an outpatient and not be aware of it. (2) Suicidal ideation: Status: Acute Assessment and plan: Denies SI this morning. Further mental health evaluation and psychiatric tx when medically cleared, on voluntary basis. Continue CPSO. (3) Alcohol abuse: Status: Chronic Assessment and plan: The patient is interested in going to [facility]. Will touch base with care management. (4) Polysubstance abuse: Status: Acute Assessment and plan: Continue suboxone. Patient states that his dose was recently supposed to go to 18 mg - we will discuss this with ISELA. (5) Elevated troponin level not due to acute coronary syndrome: Status: Chronic Assessment and plan: Has known cardiomyopathy as well as rhabdo. No evidence of ACS on this admission. (6) Cardiomyopathy: Status: Chronic Assessment and plan: LVEF of 45% by echo in 01/2022. No MPI in the computer - the patient does need outpatient ischemic workup. 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 (7) Hypertension: Status: Chronic Assessment and plan: Currently adequately control. Continue to monitor Qualifiers: Hypertension type: essential hypertension Qualified Code(s): I10 - Essential (primary) hypertension (8) ADD (attention deficit disorder): Status: Chronic Assessment and plan: Will verify if the patient is actually taking lidexamfetamine. Qualifiers: Hyperactivity presence: present Attention deficit-hyperactivity disorder type: predominantly hyperactive Qualified Code(s): F90.1 - Attention-deficit hyperactivity disorder, predominantly hyperactive type (9) Opioid dependence in remission: Status: Chronic Assessment and plan: Continue suboxone. (10) Hypokalemia: Status: Acute Assessment and plan: Repleted. Recheck in am. (11) Rhabdomyolysis: Status: Acute Assessment and plan: Start IVF. May need lasix in addition. Trend CPK. Question of whether there was a seizure prior to the hospital. Continue seizure precautions. trend CPK. (12) DVT prophylaxis: Status: Acute Assessment and plan: SC enoxaparin (13) Discharge planning issues: Status: Acute Assessment and plan: Full code Continues to require hospitalization. Voluntary for psychiatric evaluation/treatment when medically cleared. Interested in going to [facility]. Subjective Subjective Interval history since last seen: Mr Pineda refuses to take phenobarbital - it does not sit well with my body; last time I was here I walked out AMA because of it; I refuse to take it and will sign paperwork stating that I refuse to take it; I do much better with librium and ativan; I have not had a seizure while medicated in 10 years. Denies dizziness, chest pain, shortness of breath, nausea. No suicidal thoughts so far today. Exam Narrative Exam Narrative: General: mildly tremulous male, A&Ox3, has good recall, cooperative HEENT: EOMI, MMM Heart: RRR, no m/r/g Lungs: CTAB Abdomen: soft, nontender, nondistended Extremities: no edema BLEs Objective Last Vital Signs Temp 36.0 C L 05/12/22 11:56 Pulse 69 05/12/22 11:56 Resp 16 05/12/22 11:56 BP 120/70 05/12/22 11:56 Pulse Ox 98 05/12/22 11:56 Laboratory Results - last 24 hr 05/11/22 05/11/22 05/11/22 20:45 20:45 20:45 WBC 9.43 RBC 4.06 L Hgb 13.0 L Hct 37.9 L MCV 93 MCH 32.0 MCHC 34.3 RDW 13.4 Plt Count 194 MPV 8.7 Immature Gran % 0.2 Neutrophils % 68.1 Lymphocytes % 24.2 Monocytes % 6.9 Eosinophils % 0.3 Basophils % 0.3 Nucleated RBC % 0.0 Absolute Neutrophils 6.42 Absolute Lymphocytes 2.28 Absolute Monocytes 0.65 Absolute Eosinophils 0.03 Absolute Basophils 0.03 Sodium 139 Potassium 3.4 L Chloride 102 Carbon Dioxide 25.5 Anion Gap 11.5 H BUN 13 Creatinine 0.7 Estimated GFR/1.73 m2 >= 60.00 Glucose 106 Calcium 9.3 Phosphorus Magnesium 1.9 Total Bilirubin 0.6 Conjugated Bilirubin AST 63 H ALT 50 Alkaline Phosphatase 94 Creatine Kinase Troponin I 70 H* Total Protein 7.2 Albumin 3.9 Urine Color Urine Clarity Urine pH Ur Specific [place] Urine Protein Urine Ketones Urine Blood Urine Nitrite Urine Bilirubin Urine Urobilinogen Ur Leukocyte Esterase Urine Glucose Urine Opiates Screen Urine Methadone Screen Ur Barbiturates Screen Ur Tricyclics Screen Ur Amphetamines Screen U Benzodiazepines Scrn Urine Cocaine Screen Ur THC Screen Ethyl Alcohol < 3.0 COVID-19 Source SARS-CoV-2 (PCR) Add-On Test Request 05/11/22 05/11/22 05/11/22 23:40 23:40 23:52 WBC RBC Hgb Hct MCV MCH MCHC RDW Plt Count MPV Immature Gran % Neutrophils % Lymphocytes % Monocytes % Eosinophils % Basophils % Nucleated RBC % Absolute Neutrophils Absolute Lymphocytes Absolute Monocytes Absolute Eosinophils Absolute Basophils Sodium Potassium Chloride Carbon Dioxide Anion Gap BUN Creatinine Estimated GFR/1.73 m2 Glucose Calcium Phosphorus Magnesium Total Bilirubin Conjugated Bilirubin AST ALT Alkaline Phosphatase Creatine Kinase Troponin I 71 H* Total Protein Albumin Urine Color Yellow Urine Clarity Clear Urine pH 6.5 Ur Specific [place] 1.025 Urine Protein Negative Urine Ketones 40 H Urine Blood Negative Urine Nitrite Negative Urine Bilirubin Negative Urine Urobilinogen 0.2 Ur Leukocyte Esterase Negative Urine Glucose Negative Urine Opiates Screen Negative Urine Methadone Screen Negative Ur Barbiturates Screen Positive A Ur Tricyclics Screen Negative Ur Amphetamines Screen Positive A U Benzodiazepines Scrn Positive A Urine Cocaine Screen Negative Ur THC Screen Negative Ethyl Alcohol COVID-19 Source SARS-CoV-2 (PCR) Add-On Test Request 05/11/22 05/12/22 05/12/22 23:52 05:20 05:20 WBC RBC Hgb Hct MCV MCH MCHC RDW Plt Count MPV Immature Gran % Neutrophils % Lymphocytes % Monocytes % Eosinophils % Basophils % Nucleated RBC % Absolute Neutrophils Absolute Lymphocytes Absolute Monocytes Absolute Eosinophils Absolute Basophils Sodium 138 Potassium 3.7 Chloride 102 Carbon Dioxide 24.8 Anion Gap 11.2 H BUN 11 Creatinine 0.7 Estimated GFR/1.73 m2 >= 60.00 Glucose 108 H Calcium 8.9 Phosphorus Magnesium Total Bilirubin 0.8 Conjugated Bilirubin AST 73 H ALT 69 H Alkaline Phosphatase 95 Creatine Kinase Troponin I 70 H* Total Protein 6.9 Albumin 3.7 Urine Color Urine Clarity Urine pH Ur Specific [place] Urine Protein Urine Ketones Urine Blood Urine Nitrite Urine Bilirubin Urine Urobilinogen Ur Leukocyte Esterase Urine Glucose Urine Opiates Screen Urine Methadone Screen Ur Barbiturates Screen Ur Tricyclics Screen Ur Amphetamines Screen U Benzodiazepines Scrn Urine Cocaine Screen Ur THC Screen Ethyl Alcohol COVID-19 Source Nasal/Nares SARS-CoV-2 (PCR) Negative Add-On Test Request 05/12/22 05/12/22 05/12/22 05:20 05:20 05:20 WBC 6.39 RBC 4.29 L Hgb 13.7 Hct 39.9 L MCV 93 MCH 31.9 MCHC 34.3 RDW 13.3 Plt Count 188 MPV 8.9 Immature Gran % 0.2 Neutrophils % 52.1 Lymphocytes % 37.1 Monocytes % 8.1 Eosinophils % 2.2 Basophils % 0.3 Nucleated RBC % 0.0 Absolute Neutrophils 3.33 Absolute Lymphocytes 2.37 Absolute Monocytes 0.52 Absolute Eosinophils 0.14 Absolute Basophils 0.02 Sodium Potassium Chloride Carbon Dioxide Anion Gap BUN Creatinine Estimated GFR/1.73 m2 Glucose Calcium Phosphorus 2.8 Magnesium Total Bilirubin 0.9 Conjugated Bilirubin 0.2 AST 72 H ALT 64 H Alkaline Phosphatase 95 Creatine Kinase 2043 H Troponin I Total Protein 6.9 Albumin 3.7 Urine Color Urine Clarity Urine pH Ur Specific [place] Urine Protein Urine Ketones Urine Blood Urine Nitrite Urine Bilirubin Urine Urobilinogen Ur Leukocyte Esterase Urine Glucose Urine Opiates Screen Urine Methadone Screen Ur Barbiturates Screen Ur Tricyclics Screen Ur Amphetamines Screen U Benzodiazepines Scrn Urine Cocaine Screen Ur THC Screen Ethyl Alcohol COVID-19 Source SARS-CoV-2 (PCR) Add-On Test Request 05/12/22 Unknown WBC RBC Hgb Hct MCV MCH MCHC RDW Plt Count MPV Immature Gran % Neutrophils % Lymphocytes % Monocytes % Eosinophils % Basophils % Nucleated RBC % Absolute Neutrophils Absolute Lymphocytes Absolute Monocytes Absolute Eosinophils Absolute Basophils Sodium Potassium Chloride Carbon Dioxide Anion Gap BUN Creatinine Estimated GFR/1.73 m2 Glucose Calcium Phosphorus Magnesium Total Bilirubin Conjugated Bilirubin AST ALT Alkaline Phosphatase Creatine Kinase Troponin I Total Protein Albumin Urine Color Urine Clarity Urine pH Ur Specific [place] Urine Protein Urine Ketones Urine Blood Urine Nitrite Urine Bilirubin Urine Urobilinogen Ur Leukocyte Esterase Urine Glucose Urine Opiates Screen Urine Methadone Screen Ur Barbiturates Screen Ur Tricyclics Screen Ur Amphetamines Screen U Benzodiazepines Scrn Urine Cocaine Screen Ur THC Screen Ethyl Alcohol COVID-19 Source SARS-CoV-2 (PCR) Add-On Test Request DONE PAWSS Have you Been Recently Intoxicated or Drunk Within the Last 30 days?: Yes Have you Ever Experienced Previous Episodes of Alcohol Withdrawal?: Yes Have you ever Experienced Withdrawal Seizures?: Yes Have you ever Experienced Delirium Tremens(DT)s?: Yes Have you ever undergone Alcohol Rehabilitation Treatment (i.e, inpt ot outpatient treatment programs)?: Yes Have you ever Experienced Blackouts?: No Have you ever Combined Alcohol with other Downers within the last 90 days?: No Have you ever Combined Alcohol with any other Substance of Abuse during the last 90 days?: No Positive Blood Alcohol level on Presentation? [PCS.BAL]: Unable to Obtain Evidence of Increased Autonomic Activity (i.e. HR>120, tremor, sweating, agitation, nausea)?: Yes Result: 6
[2022-05-12] MEDS: Lactated Ringers 1,000 ML 100 ML IV ×2 (13:47→22:04)
[2022-05-13] VITALS (11 sets, daily range): BP systolic 110–140; BP diastolic 63–82; PULSE 55–85; RESP 12–16; TEMP 36.3–36.8; O2SAT 95–99
[2022-05-13] MEDS: LORazepam 1 MG TAB PO/SL ×6 (04:43→18:33)
[2022-05-13 05:49] LABS: Absolute Basophil Count 0.02 10^3/uL (0.0-0.2); Absolute Eosinophil Count 0.21 10^3/uL (0.0-0.7); Absolute Lymphocyte Count 2.82 10^3/uL (1.2-3.4); Absolute Monocyte Count 0.41 10^3/uL (0.1-0.8); Absolute Neutrophil Count 2.33 10^3/uL (1.2-6.7); Basophils % 0.3; Eosinophils % 3.6; HCT 41.5 % (40.0-50.0); HGB 14.2 g/dL (13.5-17.5); Lymphocytes % 48.7; MCH 32.3 pg (27.0-33.0); MCHC 34.2 % (32.0-36.0); MCV 95 fL (80-95); MPV 9.2 fL (8.0-11.0); Monocytes % 7.1; Neutrophils % 40.3; Platelet Count 172 10^3/uL (130-400); RBC 4.39 10^6/uL (4.36-5.78); RDW 13.7 % (11.8-14.1); RDW-SD 47.7 fL; WBC 5.79 10^3/uL (4.4-10.8)
[2022-05-13 06:04] LABS: ALT 103 U/L (16-63); AST 80 U/L (15-37); Albumin 3.2 g/dL (3.4-5.0); Alkaline Phosphatase 88 U/L (46-116); Anion Gap 6.4 mmol/L (3-11); BUN 12 mg/dL (7-18); Bilirubin, Direct 0.1 mg/dL (0.0-0.2); Bilirubin, Total 0.5 mg/dL (0.2-1.0); CO2 30.6 mmol/L (21.0-32.0); CREATININE 0.7 mg/dL (0.70-1.30); Calcium 9.2 mg/dL (8.5-10.1); Chloride 107 mmol/L (98-107); Creatine Kinase 677 U/L (39-308); Glucose 99 mg/dL (74-106); Sodium 144 mmol/L (136-145); Total Protein 6.2 g/dL (6.4-8.2)
[2022-05-13] MEDS: Nicotine 14 MG/24 HR PATCH TD (08:10)
[2022-05-13] MEDS: FLUoxetine 20 MG CAP 60 MG PO (08:11)
[2022-05-13] MEDS: Potassium Chloride 10 MEQ TABCR PO ×2 (08:11→20:36)
[2022-05-13] MEDS: Enoxaparin 40 MG/0.4 ML SYR SC (08:11)
[2022-05-13] MEDS: OLANZapine 10 MG TAB PO (08:12)
[2022-05-13] MEDS: Multivitamin TAB 1 TAB PO (08:12)
[2022-05-13] MEDS: QUEtiapine 50 MG TAB PO (08:12)
[2022-05-13] MEDS: Folic Acid 1 MG TAB PO (08:12)
[2022-05-13] MEDS: Thiamine 100 MG TAB PO (08:12)
[2022-05-13] MEDS: cloNIDine 0.1 MG TAB PO ×2 (08:12→20:37)
[2022-05-13] MEDS: Normal Saline Flush 10 ML SYR IVP (08:14)
[2022-05-13] MEDS: Acetaminophen 325 MG TAB 650 MG PO ×2 (08:46→14:11)
--- NOTE | 2022-05-13 12:22 | CMPROGNOTE_ITS ---
- If Service Date Differs Date of service: 05/13/22 Time of Service: 12:22 Care Management Progress Note S/O: Dangelo remains on CIWA protocol, scoring up to a 10 today. Per RN, he is oriented and engaging well in conversation today, therefore CM contacted the refinery operator vapor recovery unit to meet with Dangelo to discuss inpatient substance use rehab. Per refinery operator vapor recovery unit, Dangelo is advocating for medication to help control his anxiety in the community. He reported that he has an appointment with a psychiatrist at [facility]. CM inquired about the date of this appointment, and per the chronic home care chaplain, it is scheduled for 07/18/22, and is a telehealth appointment. Dangelo was lying in bed when CM met with him. He reported that he is not feeling well, and that he is not up to discussing his discharge plan with CM today. CM will continue to follow. A: Dangelo is a 41 year old male admitted to [facility] on 05/11/22 for SI, alcohol use/polysubstance use. P: Dangelo is being closely monitored and treated. He refuses to take phenobarbitol, informed refusal form signed. Dangelo will be evaluated by [facility] clinician, when medically cleared per provider. Dangelo would like inpatient treatment at [facility], [facility] or [facility]. CM will continue to support Dangelo and assess for ongoing discharge concerns. - Guardianship if Applicable Guardianship: Other
--- NOTE | 2022-05-13 12:31 | CMSP_ITS ---
- If Service Date Differs Date of service: 05/13/22 Time of Service: 12:31 Care Management Safety Plan Status: Voluntary - Reason for Wait Reason for Wait: Medical Clearance INTERIM SAFETY PLAN: Dangelo is currently withdrawing from alcohol use, and is not yet medically cleared. He will be evaluated by [facility] once MD feels that he is medically cleared. VOLUNTARY FOR INPATIENT PSYCHIATRIC STABILIZATION. Patient is appropriate in all interactions since arriving at [facility]; Pt has demonstrated appropriate coping and communication skills, has articulated his or her needs and concerns and is fully engaged during staff interactions. Safety plan has been established with patient, and care team, to adhere to patient goals, identify restrictions based on behavioral status, address nutrition, and determine allowed personal belongings, tools for hygiene and personal care. Determine level of activity including ambulation, level of supervision, visitors, and determine privileges based on behaviors and level of engagement by pt. SAFETY PLAN: 1. Will remain on suicide precautions. In Paper Clothes 2. Will remain in room under direct supervision of one-on-one staff at all times provided by CPSO; JAYDEN, CARAMEL CANDY MAKER chauffeur airport limousine. 3. May have paper cups, plates, finger foods as well as a cardboard spoon with which to eat meals. 4. Follow [facility] Management of the Admitted Behavioral Health Patient policy. 5. Comfort bath system only, shower permitted with escort at RN discretion. 6. No personal belongings-soft cart items, tablet for music/movies/shows permitted at RN discretion. 7. Visitors- disaster recovery specialist 8. Activities: soft cart items approved per RN discretion. 9. Bathroom privileges with escort in the ED, available in room without limitation on M/S. 10. Phone: contact limited to family at this time, via cordless phone at RN disc retion. 11. Due to VOLUNTARY status, if patient wishes to leave [facility], staff will contact [facility] Crisis Screener ([phone]) and On-Call Shift Foreman ([phone]) as soon as possible. In the event of elopement, notify [place] [employer] ([phone]). Patient is currently voluntarily at [facility] and seeking inpatient admission when a bed becomes available. [facility] Frontline Mason Tender will continue seeking placement. Please contact the Photographer Model Shift Foreman ([phone]) and [facility] Mason Tender ([phone]) for any needed changes in the Safety Plan. Safety plan has been provided to interdepartmental care team.
--- NOTE | 2022-05-13 12:31 | PDOC.CMSAFE ---
- If Service Date Differs Date of service: 05/13/22 Time of Service: 12:31 Care Management Safety Plan Status: Voluntary - Reason for Wait Reason for Wait: Medical Clearance INTERIM SAFETY PLAN: Dangelo is currently withdrawing from alcohol use, and is not yet medically cleared. He will be evaluated by [facility] once MD feels that he is medically cleared. VOLUNTARY FOR INPATIENT PSYCHIATRIC STABILIZATION. Patient is appropriate in all interactions since arriving at [facility]; Pt has demonstrated appropriate coping and communication skills, has articulated his or her needs and concerns and is fully engaged during staff interactions. Safety plan has been established with patient, and care team, to adhere to patient goals, identify restrictions based on behavioral status, address nutrition, and determine allowed personal belongings, tools for hygiene and personal care. Determine level of activity including ambulation, level of supervision, visitors, and determine privileges based on behaviors and level of engagement by pt. SAFETY PLAN: 1. Will remain on suicide precautions. In Paper Clothes 2. Will remain in room under direct supervision of one-on-one staff at all times provided by [employer]; JAYDEN, EQUINE MANAGER corn cooker. 3. May have paper cups, plates, finger foods as well as a cardboard spoon with which to eat meals. 4. Follow [facility] Management of the Admitted Behavioral Health Patient policy. 5. Comfort bath system only, shower permitted with escort at RN discretion. 6. No personal belongings-soft cart items, tablet for music/movies/shows permitted at RN discretion. 7. Visitors- recovery assistant 8. Activities: soft cart items approved per RN discretion. 9. Bathroom privileges with escort in the ED, available in room without limitation on M/S. 10. Phone: contact limited to family at this time, via cordless phone at RN discretion. 11. Due to VOLUNTARY status, if patient wishes to leave [facility], staff will contact [facility] Crisis Screener ([phone]) and On-Call As400 Operator ([phone]) as soon as possible. In the event of elopement, notify [facility] Police ([phone]). Patient is currently voluntarily at [facility] and seeking inpatient admission when a bed becomes available. [facility] Frontline Asphalt Paving Machine Operator will continue seeking placement. Please contact the Hatchery Worker As400 Operator ([phone]) and [facility] Asphalt Paving Machine Operator ([phone]) for any needed changes in the Safety Plan. Safety plan has been provided to interdepartmental care team.
--- NOTE | 2022-05-13 17:13 | PGE_ITS ---
Date of Service Date of service: 05/13/22 Time of Service: 10:00 Assessment and Plan Assessment and plan (1) Alcohol withdrawal: Status: Acute Assessment and plan: The patient refuses phenobarbital therapy - signed a document stating that. Continue low dose scheduled librium and prn po/sl ativan. He looks stable for medical surgical floor for now, but does have a h/o EtOH w/d seizures, and threshold to transfer to the ICU is low. He does have an elevated CPK on this admission, suggesting he may, in fact, have had a seizure as an outpatient and not be aware of it. (2) Suicidal ideation: Status: Acute Assessment and plan: Denies SI this morning. Further mental health evaluation and psychiatric tx when medically cleared, on voluntary basis. Continue CPSO. (3) Alcohol abuse: Status: Chronic Assessment and plan: The patient is interested in going to [facility]. Care management was made aware and will help coordinate however they are able. (4) Polysubstance abuse: Status: Chronic Assessment and plan: Continue suboxone. Patient states that his dose was recently supposed to go to 18 mg - ISELA stated this was not documented, per my conversation with pharmacy. (5) Elevated troponin level not due to acute coronary syndrome: Status: Chronic Assessment and plan: Has known cardiomyopathy as well as rhabdo. No evidence of ACS on this admission. (6) Cardiomyopathy: Status: Chronic Assessment and plan: LVEF of 45% by echo in 01/2022. No MPI in the computer - the patient does need outpatient ischemic workup. 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 (7) Hypertension: Status: Chronic Assessment and plan: Currently adequately control. Continue to monitor Qualifiers: Hypertension type: essential hypertension Qualified Code(s): I10 - Essential (primary) hypertension (8) ADD (attention deficit disorder): Status: Chronic Assessment and plan: Off of lisdexamfetamine per his last [facility] d/c, but appears to have filled this - pharmacy is reviewing this It appears that the PCP had resumed it. We are giving it here; low threshold to discontinue. Qualifiers: Hyperactivity presence: present Attention deficit-hyperactivity disorder type: predominantly hyperactive Qualified Code(s): F90.1 - Attention- deficit hyperactivity disorder, predominantly hyperactive type (9) Opioid dependence in remission: Status: Chronic Assessment and plan: Continue suboxone. (10) Hypokalemia: Status: Chronic Assessment and plan: Repleted. Recheck in am. (11) Rhabdomyolysis: Status: Acute Assessment and plan: D/c IVF. Trend CPK. Question of whether there was a seizure prior to the hospital. Continue seizure precautions. (12) DVT prophylaxis: Status: Acute Assessment and plan: SC enoxaparin (13) Discharge planning issues: Status: Acute Assessment and plan: Full code Continues to require hospitalization. Voluntary for psychiatric evaluation/treatment when medically cleared. Interested in going to [facility]. Subjective Subjective Interval history since last seen: Dangelo states that he is having a better today today, but is hearing voices (a little) and is seeing things that are not there (balloons with faces on them, not threatening). He knows these are not real. Denies dizziness, chest pain, shortness of breath, nausea, headache. Does feels anxious. Exam Narrative Exam Narrative: General: mildly tremulous male, A&Ox3, does look a little more confused today than yesterday Psych: anxious; not hallucinating while I am in the room HEENT: EOMI, MMM Heart: not auscultated Lungs: nonlabored breathing Abdomen: soft, nontender, nondistended Extremities: no edema BLEs Objective Last Vital Signs Temp 36.8 C 05/13/22 13:45 Pulse 73 05/13/22 15:00 Resp 16 05/13/22 13:45 BP 113/75 05/13/22 13:45 Pulse Ox 97 05/13/22 13:45 Laboratory Results - last 24 hr 05/13/22 05/13/22 04:58 05:22 WBC 5.79 RBC 4.39 Hgb 14.2 Hct 41.5 MCV 95 MCH 32.3 MCHC 34.2 RDW 13.7 Plt Count 172 MPV 9.2 Immature Gran % 0.0 Neutrophils % 40.3 Lymphocytes % 48.7 Monocytes % 7.1 Eosinophils % 3.6 Basophils % 0.3 Nucleated RBC % 0.0 Absolute Neutrophils 2.33 Absolute Lymphocytes 2.82 Absolute Monocytes 0.41 Absolute Eosinophils 0.21 Absolute Basophils 0.02 Sodium 144 Potassium 4.0 Chloride 107 Carbon Dioxide 30.6 Anion Gap 6.4 BUN 12 Creatinine 0.7 Estimated GFR/1.73 m2 >= 60.00 Glucose 99 Calcium 9.2 Magnesium 2.0 Total Bilirubin 0.5 Conjugated Bilirubin 0.1 AST 80 H ALT 103 H Alkaline Phosphatase 88 Creatine Kinase 677 H Total Protein 6.2 L Albumin 3.2 L PAWSS Have you Been Recently Intoxicated or Drunk Within the Last 30 days?: Yes Have you Ever Experienced Previous Episodes of Alcohol Withdrawal?: Yes Have you ever Experienced Withdrawal Seizures?: Yes Have you ever Experienced Delirium Tremens(DT)s?: Yes Have you ever undergone Alcohol Rehabilitation Treatment (i.e, inpt ot outpatient treatment programs)?: Yes Have you ever Experienced Blackouts?: No Have you ever Combined Alcohol with other Downers within the last 90 days?: No Have you ever Combined Alcohol with any other Substance of Abuse during the last 90 days?: No Positive Blood Alcohol level on Presentation? [PCS.BAL]: Unable to Obtain Evidence of Increased Autonomic Activity (i.e. HR>120, tremor, sweating, agitation, nausea)?: Yes Result: 6
[2022-05-14] VITALS: PULSE 77
[2022-05-14 03:04] VITALS: BP 142/90; PULSE 67; RESP 18; TEMP 36; O2SAT 99
[2022-05-14] MEDS: LORazepam 1 MG TAB PO/SL ×2 (03:13→07:51)
[2022-05-14 06:57] LABS: ALT 88 U/L (16-63); AST 41 U/L (15-37); Alkaline Phosphatase 81 U/L (46-116); Bilirubin, Direct 0.1 mg/dL (0.0-0.2); Bilirubin, Total 0.1 mg/dL (0.2-1.0); Creatine Kinase 281 U/L (39-308); Magnesium 1.8 mg/dL (1.8-2.4)
[2022-05-14 07:00] VITALS: PULSE 65
[2022-05-14 07:04] LABS: Anion Gap 8.8 mmol/L (3-11); BUN 13 mg/dL (7-18); CO2 27.2 mmol/L (21.0-32.0); CREATININE 0.7 mg/dL (0.70-1.30); Calcium 8.8 mg/dL (8.5-10.1); Chloride 107 mmol/L (98-107); Glucose 97 mg/dL (74-106); Potassium 4.1 mmol/L (3.5-5.1); Sodium 143 mmol/L (136-145)
[2022-05-14] MEDS: Nicotine 14 MG/24 HR PATCH TD (07:38)
[2022-05-14] MEDS: Enoxaparin 40 MG/0.4 ML SYR SC (07:38)
[2022-05-14] MEDS: Multivitamin TAB 1 TAB PO (07:39)
[2022-05-14] MEDS: Thiamine 100 MG TAB PO (07:39)
[2022-05-14] MEDS: Potassium Chloride 10 MEQ TABCR PO (07:39)
[2022-05-14] MEDS: cloNIDine 0.1 MG TAB PO (07:39)
[2022-05-14] MEDS: OLANZapine 10 MG TAB PO (07:39)
[2022-05-14] MEDS: FLUoxetine 20 MG CAP 60 MG PO (07:39)
[2022-05-14] MEDS: Folic Acid 1 MG TAB PO (07:39)
[2022-05-14 07:40] VITALS: BP 134/93; PULSE 73; RESP 18; TEMP 36.5; O2SAT 98
--- NOTE | 2022-05-14 11:31 | NUR.NOTE ---
Nursing Note: at approximately 11:30 this magazine writer entered the room after CPSO requested that the nurse come speak to pt. pt was demanding that he be medicated. This magazine writer explained to the pt that CIWA is now ordered Q4 hours and that we still had over 30 minutes until he could be medicated. pt stated that I know what I can have for medication and I know you are holding it back on me. I need 25 mg of librium and a much higher dose of ativan. This magazine writer explained that librium was a scheduled dose and not based off of his CIWA scoring, and that the ativan is based upon a total score. pt became agitated and stated that I won't even tell you what I am seeing and hearing right now. This magazine writer reassured pt that I would return when it was time for his CIWA scoring.
--- NOTE | 2022-05-14 12:41 | NUR.NOTE ---
Nursing Note:At approximately 12:15 this pattern chart writer entered the room to inform pt that CIWA and ativan orders have been D/C'd. pt stated that we were trying to kill him and forcing him to leave he then stated he would like to speak to the doctor and that he would leave AMA if he did not get his medications back.
--- NOTE | 2022-05-14 14:53 | PDOC.MHCN ---
Date of service: 05/14/22 Time of Service: 13:40 Mental Health Crisis Note Precipitating Factors Client endorsing SI with SIB Disposition BEHAVIOR: Calm EYE CONTACT: Poor MOOD: anxious AFFECT: Congruent with mood APPETITE: Client reports no issues with appetite SLEEP(trouble falling/staying asleep: Client reports to having trouble sleeping Plan Client will remain at [facility] and await for inpatient hospitalization Signature Clinician's Name/Title: Sada He [facility] Enhanced Crisis Residential [facility] Helper
--- NOTE | 2022-05-14 15:17 | W.PM.PROGNOT ---
Date of Service Date of service: 05/14/22 Time of Service: 15:17 Assessment and Plan Assessment and plan (1) Alcohol withdrawal: Status: Acute Assessment and plan: Patient refused phenobarbital therapy on admission. He was put on low-dose Librium and symptom triggered lorazepam. Despite patient found to be calm and relaxed during visits by nursing staff patient would request lorazepam and asked that he be scored by JOSE ALFREDO. It appears that he is requesting lorazepam for reasons other than acute alcohol withdrawal. Based on this I discontinued CIWA scoring as well as lorazepam this morning. We continued his Librium. But despite this he was not happy with this plan and left the hospital AGAINST MEDICAL ADVICE this afternoon. Case management had a long discussion with him earlier today and he is indicated that he intends to go back to drinking alcohol and at this point is not committed to any long-term rehabilitation program. At this point my recommendation is that if he is readmitted that benzodiazepines not be given as an option but rather he go on phenobarbital which will not have the euphoric effect of benzodiazepines but still will control against acute alcohol withdrawal seizures. (2) Suicidal ideation: Status: Acute Assessment and plan: Patient was not having any suicidal ideation at the time of his departure. RAD[facility] and already reviewed his case and indicated that there was no indication for acute inpatient psychiatric hospitalization. (3) Alcohol abuse: Status: Chronic Assessment and plan: Patient has been given referral for outpatient follow-up through case management. (4) Polysubstance abuse: Status: Chronic Assessment and plan: Continue suboxone. Patient will need to follow-up with [facility] for this (5) Discharge planning issues: Status: Acute Assessment and plan: Patient left hospital AGAINST MEDICAL ADVICE prior to my seeing the patient and being able to discuss a reasonable plan of treatment of his alcoholism. Subjective Subjective Interval history since last seen: Patient left AMA before I could see him this afternoon. I missed him by less than two minutes. Objective Last Vital Signs Temp 36.5 C 05/14/22 07:40 Pulse 73 05/14/22 07:40 Resp 18 05/14/22 07:40 BP 134/93 H 05/14/22 07:40 Pulse Ox 98 05/14/22 07:40 Laboratory Results - last 24 hr 05/14/22 05/14/22 05:59 05:59 Sodium 143 Potassium 4.1 Chloride 107 Carbon Dioxide 27.2 Anion Gap 8.8 BUN 13 Creatinine 0.7 Estimated GFR/1.73 m2 >= 60.00 Glucose 97 Calcium 8.8 Magnesium 1.8 Total Bilirubin 0.1 L Conjugated Bilirubin 0.1 AST 41 H ALT 88 H Alkaline Phosphatase 81 Creatine Kinase 281 Total Protein 6.0 L Albumin 3.0 L PAWSS Have you Been Recently Intoxicated or Drunk Within the Last 30 days?: Yes Have you Ever Experienced Previous Episodes of Alcohol Withdrawal?: Yes Have you ever Experienced Withdrawal Seizures?: Yes Have you ever Experienced Delirium Tremens(DT)s?: Yes Have you ever undergone Alcohol Rehabilitation Treatment (i.e, inpt ot outpatient treatment programs)?: Yes Have you ever Experienced Blackouts?: No Have you ever Combined Alcohol with other Downers within the last 90 days?: No Have you ever Combined Alcohol with any other Substance of Abuse during the last 90 days?: No Positive Blood Alcohol level on Presentation? [PCS.BAL]: Unable to Obtain Evidence of Increased Autonomic Activity (i.e. HR>120, tremor, sweating, agitation, nausea)?: Yes Result: 6
--- NOTE | 2022-05-14 19:03 | CMDISCH_ITS ---
- If Service Date Differs Date of service: 05/14/22 Time of Service: 19:03 LACE Index Scoring Tool - Questions: Length of Stay (in days): 3 Acuity (Admit via E.D.?): Yes E.D. Visits: 14 - Answers: Total Score: 10 Risk of Readmission: High Risk Care Management Discharge Reason for Hospitalization: SI, Alcohol withdrawal, Elevated troponin Discharge Plan: Dangelo left AMA today, after reporting that he would leave if he did not receive additional medication for his anxiety. His CIWA protocol was discontinued today, as he is not actively withdrawing, per report. CM prepared a last dose letter, at his request. He arranged his own transportation. CM notified [facility] of his AMA discharge. Patient/Family Education Needs: Review discharge instructions and limitations, discussion of self care needs including ask me three.
--- NOTE | 2022-05-15 16:39 | W.PM.DS.N ---
Date of service: 05/14/22 Time of Service: 19:00 DS: Diagnosis Discharge Diagnosis (1) Alcohol withdrawal: Status: Acute (2) Suicidal ideation: Status: Acute (3) Alcohol abuse: Status: Chronic (4) Polysubstance abuse: Status: Chronic (5) Discharge planning issues: Status: Acute Discharge Plan Disposition Patient Disposition: AGAINST MEDICAL ADVICE Condition: Stable Discharge Details Reason For Visit: Suicidal Ideation, Alcohol Abuse, Polysubstance Ab Admit Date/Time: 05/11/22 23:13 Admit Provider: Boris Forman Attending Provider: Boris Forman Primary Care Provider: Sophia Kelsey Hospital Course Hospital Course: 41 yr old male w/ PMH of alcohol abuse, polysubstance abuse, on methadone, ADHD, anxiety and depression, alcoholic cardiomyopathy. He presented to the ED withdrawing from alcohol c/o depression and SI. See ER notes. Patient refused phenobarbital therapy and was started on programmed librium and symptomatic triggered use of lorazepam based on CIWA protocol. He was resume on his usual home meds for his depression and anxiety. He completed 2 1/2 days of therapy and was doing well but when he would become aware of nursing observing him he would complain of hallucinations and tremors and asking nursing to score him on the CIWA scale. Eventually this led this provider to stop having nursing perform CIWA scoring and his lorazepam was stopped but his librium was continued. He left AMA just prior to my coming to discuss a reasonable plan of treatment. No Rx were written for him. He did receive his suboxone 16 mg daily while he was here w/ last dose given on 05/14 at 07:39 am. Home Meds and New Rx's Prescriptions: No Action fluoxetine 60 mg tablet 60 mg PO DAILY Qty: 30 1RF olanzapine 10 mg tablet 10 mg PO DAILY Qty: 30 0RF chlordiazepoxide HCl 25 mg capsule 25 mg PO BID PRN (Reason: alcohol withdrawal) Qty: 7 0RF Rx Instructions: Take twice daily as needed for tremors, and withdrawal symptoms. Do not take with alcohol quetiapine 50 mg tablet 50 mg PO BID Qty: 60 1RF lisdexamfetamine 50 mg capsule 50 mg PO QAM MDD 60 Qty: 28 0RF Label Comments: Sometimes forget to take the medication. Last taken two days ago according to pt. clonidine HCl 0.1 mg tablet 1 tab PO BID Label Comments: TAKE ONE TABLET BY MOUTH TWICE A DAY NEEDED buprenorphine-naloxone 8-2 mg Tablet, Sublingual 2 tab SUBLINGUAL DAILY Discharge Instructions Activity:: Activity as Tolerated Equipment/Supplies:: No Equipment Needed Diet:: Normal Diet Discharge Orders Discharge Orders: Discharge Order (Routine); Ordered 05/14/22 Ordered By: Gabo Logan Discharge Data Discharge Date/Time-TO BE ENTERED AT DEPARTURE: 05/14/22 15:17 DS: Summary Time Spent with Patient providing and/or coordinating discharge services: Less than 30 minutes Status at Discharge Functional status at discharge: independent ambulation Overall status at discharge: patient is not back to baseline Mental Status: mental status grossly normal Speech and Movement: speech and movement normal Mood: congruent mood Affect: normal affect Exam Psych Mental Status: mental status grossly normal Speech and Movement: speech and movement normal Mood: congruent mood Affect: normal affect DS: Data Vitals/I&O Vitals and I&O: Vital Signs Temperature 36.5 C 05/14/22 07:40 Temperature Source Tympanic 05/14/22 07:40 Pulse 73 05/14/22 07:40 Pulse Rhythm Regular 05/14/22 09:56 Respiratory Rate 18 05/14/22 07:40 Respiratory Effort Non-Labored 05/14/22 09:56 Respiratory Depth Normal 05/14/22 09:56 Respiratory Pattern Normal 05/14/22 09:56 Blood Pressure 134/93 H 05/14/22 07:40 Blood Pressure Position Sitting 05/11/22 18:49 Pulse Oximetry 98 05/14/22 07:40 Oxygen Delivery Method Room Air 05/14/22 07:40 Oxygen Flow Rate 0 05/14/22 07:40 Pain Level 6 05/14/22 07:40 Comment 05/12/22 18:35 PFSH All Active Problems (Updated 05/15/22 @ 13:56 by Gabo Logan MD) Hallucination, visual (Acute) Alcohol withdrawal (Acute) Anxiety (Chronic) Discharge planning issues (Acute) DVT prophylaxis (Acute) Opioid dependence in remission (Chronic) Polysubstance abuse (Chronic) Suicidal ideation (Acute) Alcohol withdrawal (Acute) Opiate withdrawal (Acute) Alcohol abuse (Chronic) Prolonged Q-T interval on ECG (Acute) Depression with anxiety (Acute) Acute opioid withdrawal (Acute) Hypokalemia (Chronic) Diarrhea (Acute) Tobacco abuse (Acute 11/19/17) 1/2 ppd HFrEF (heart failure with reduced ejection fraction) (Acute) Anxiety (Chronic 09/05/17) Medical History ADD (attention deficit disorder) Cardiomyopathy Closed right ankle fracture (~09/2019) Depression with suicidal ideation Hospitalized at [facility] psych 02/15-02/26/22. Erectile dysfunction (10/03/17) Gynecomastia, male (03/11/18) secondary to methadone Hyperglycemia (09/05/17) Hyperprolactinemia (04/15/18) Hypertension Hypogonadism, male (03/24/18) Pending appt with Dr. Charles at [facility] in [place] Methadone dependence (04/01/18) [facility] in [facility] Hx intranasal and oral use of opioids. Meets with therapist twice monthly; has had take-home in the past. QT prolongation Surgical History S/P hernia repair Family History Mother Diabetes Cancer thyroid cancer Father Diabetes Essential hypertension Paternal Grandfather No problems noted. Maternal Grandfather Stroke Paternal Uncle Cancer stomach cancer Other Family history of diabetes mellitus (DM) Social History Smoking/Tobacco Use Status: Current every day Tobacco Type: cigarettes Quit status: considering quitting Counseling given: provider counseling Smoking risk assessment performed?: Yes Alcohol Intake: current Alcohol Intake frequency: 3 or more drinks per day Alcohol type: hard liquor Counseling given: Yes Drug use: Occasionally Substance use type: marijuana Counseling provided: treatment program Details: Patient states he had a fifth of vodka about an hour before his ED arrival Household members: family Housing: other Details: living with his father Number of Children: 1 Education Level: high school 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
== END 2022-05-14 15:17 | disposition left against medical advice (07) | DRG 894 ==
LOC: ER 05-12 00:09 → MS 05-12 00:33
PROVIDERS: Internal Medicine; Physician Assistant; Admitting Provider Family Medicine; Emergency Provider Student in an Organized Health Care Education/Training Program; PCP Family Medicine; Visit Provider Family Medicine
DX: F10.139 Alcohol abuse with withdrawal, unspecified (principal); R45.851 Suicidal ideations; M62.82 Rhabdomyolysis; I42.6 Alcoholic cardiomyopathy; F11.20 Opioid dependence, uncomplicated; F17.210 Nicotine dependence, cigarettes, uncomplicated; F41.8 Other specified anxiety disorders; I10 Essential (primary) hypertension; R44.1 Visual hallucinations; S51.812A Laceration without foreign body of left forearm, initial encounter; X78.1XXA Intentional self-harm by knife, initial encounter; R94.31 Abnormal electrocardiogram [ECG] [EKG]; R74.8 Abnormal levels of other serum enzymes; E87.6 Hypokalemia; F90.1 Attention-deficit hyperactivity disorder, predominantly hyperactive type; F43.10 Post-traumatic stress disorder, unspecified; F19.10 Other psychoactive substance abuse, uncomplicated
CPT/HCPCS: 36415; 80048; 80053; 80076; 80307; 82550; 87635; 93005; 96361; 96365; 96366; 96375; 96376; 99285; J1650; 71045; 80320; 81003; 83735; 84100; 84484; 85025; 93010; 99223; 99232; 99238; J2060; J3490

== ENCOUNTER 2022-05-14 21:59 | Emergency (ER) | payer MEDICAID, SELFPAY ==
--- NOTE | 2022-05-14 22:01 | ED.GENADUL_ITS ---
Discharge Plan Disposition Patient Disposition: AGAINST MEDICAL ADVICE Condition: Stable Discharge Details Clinical Impression: Alcohol abuse, Anxiety, Hallucination, visual Primary Care Provider: Sophia Kelsey ED Provider: Jamie Haile [place] Meds and New Rx's Prescriptions: No Action fluoxetine 60 mg tablet 60 mg PO DAILY Qty: 30 1RF olanzapine 10 mg tablet 10 mg PO DAILY Qty: 30 0RF chlordiazepoxide HCl 25 mg capsule 25 mg PO BID PRN (Reason: alcohol withdrawal) Qty: 7 0RF Rx Instructions: Take twice daily as needed for tremors, and withdrawal symptoms. Do not take with alcohol quetiapine 50 mg tablet 50 mg PO BID Qty: 60 1RF lisdexamfetamine 50 mg capsule 50 mg PO QAM MDD 60 Qty: 28 0RF Label Comments: Sometimes forget to take the medication. Last taken two days ago according to pt. clonidine HCl 0.1 mg tablet 0.1 tab PO BID Label Comments: TAKE ONE TABLET BY MOUTH TWICE A DAY NEEDED buprenorphine-naloxone 8-2 mg Tablet, Sublingual 2 tab SUBLINGUAL DAILY Medical Decision Making Patient with history of anxiety and alcohol abuse. Previous drug abuse but on Suboxone and denies any drug use. Left AMA this afternoon from this hospital. Reports drinking some alcohol but denies drug use. Has been on scheduled Librium and as needed Ativan in the hospital. When Ativan discontinued is when patient signed out AMA stating that he could not handle of the anxiety. Patient currently looks quite calm and is cooperative. He does not appear to be responding to internal stimuli or having visual hallucinations here. He is afebrile and not tachycardic. Blood pressure is elevated but there is documentation of essential hypertension and old records. I did not appreciate any tremor. I am not convinced patient is having alcohol withdrawal. He refused phenobarbital taper last admission. I will rescreen with labs, assign a CPSO, obtain mental health evaluation, observe. Patient medically cleared as labs unremarkable. Alcohol 109. Urine drug screen positive for barbiturates, benzos, amphetamines. Patient seen by mental health, who feels he does need admission. If patient decides to leave, they would like to be notified in order to file a warrant with the court to have him brought back. Patient is aware and care plan being prepared. Patient elected to sign himself out AMA shortly after 5 AM. Reportedly was going to [facility] for his medication and [place]. Mental health was made aware. Patient aware that mental health will be applying for warrant. Patient stable and did not exhibit any evidence of alcohol withdrawal while here. Medical Records Medical records reviewed: Yes I reviewed the patient's medical records. Lab Data Lab results reviewed: Yes I reviewed the patient's lab results. HPI General Mode of arrival: EMS . Date/Time Provider Initiated Documentation: 05/14/22 22:01 . Limitations to Documentation: no limitations . Information obtained by: patient, EMS, RN notes reviewed and old records reviewed . HPI Narrative: Patient brought in by ambulance after EMS was called when he showed up outside the mall stating were chasing him. Patient reports that he is a police or for chasing them [place] the river. He had just left the hospital AMA after being admitted for mental health evaluation and alcohol withdrawal. After leaving [facility] he went and bought 1/5 of alcohol. Reports that he drank about a quarter of it. He was walking down by the river to his swimming [place] when he began visualizing personnel chasing him. He reports that he feels this is real to him. He reports that he lost his alcohol and his back with all of [place] medications in the river. He tells me that he left AMA because he got tired of waiting for a bed and was becoming anxious. Reviewing the hospitalist note patient was on a Librium scheduled dosing but kept asking the nurses to CIWA score him so he could get Ativan. Ativan was discontinued today and patient signed out AMA this afternoon. Related Data Home Medications Medication Instructions Recorded Confirmed fluoxetine 60 mg tablet 60 mg PO DAILY #30 tabs 03/22/22 05/14/22 olanzapine 10 mg tablet 10 mg PO DAILY #30 tabs 05/01/22 05/14/22 chlordiazepoxide HCl 25 mg capsule 25 mg PO BID PRN alcohol 05/02/22 05/14/22 withdrawal #7 caps quetiapine 50 mg tablet 50 mg PO BID #60 tabs 05/08/22 05/14/22 lisdexamfetamine 50 mg capsule 50 mg PO QAM #28 caps 05/10/22 05/14/22 clonidine HCl 0.1 mg tablet 0.1 tab PO BID 05/11/22 05/14/22 buprenorphine 8 mg-naloxone 2 mg 2 tab sublingual DAILY 05/13/22 05/14/22 sublingual tablet Previous Rx's Medication Instructions Recorded fluoxetine 60 mg tablet 60 mg PO DAILY #30 tabs 03/22/22 olanzapine 10 mg tablet 10 mg PO DAILY #30 tabs 05/01/22 chlordiazepoxide HCl 25 mg capsule 25 mg PO BID PRN alcohol 05/02/22 withdrawal #7 caps quetiapine 50 mg tablet 50 mg PO BID #60 tabs 05/08/22 lisdexamfetamine 50 mg capsule 50 mg PO QAM #28 caps 05/10/22 Allergies Allergy/AdvReac Type Severity Reaction Status Date / Time No Known Allergies Allergy Verified 05/11/22 18:58 General PACO: 2 Review of Systems Unobtainable due to mental condition PFS All Active Problems (Updated 05/15/22 @ 03:29 by Jamie Haile MD) Hallucination, visual (Acute) Discharge planning issues (Acute) DVT prophylaxis (Acute) Rhabdomyolysis (Acute) Opioid dependence in remission (Chronic) Elevated troponin level not due to acute coronary syndrome (Chronic) Polysubstance abuse (Chronic) Suicidal ideation (Acute) Alcohol withdrawal (Acute) Opiate withdrawal (Acute) Alcohol abuse (Chronic) Prolonged Q-T interval on ECG (Acute) Depression with anxiety (Acute) Acute opioid withdrawal (Acute) Hypokalemia (Chronic) Diarrhea (Acute) Tobacco abuse (Acute 11/19/17) 1/2 ppd HFrEF (heart failure with reduced ejection fraction) (Acute) Anxiety (Chronic 09/05/17) Medical History (Updated 05/15/22 @ 03:29 by Jamie Haile MD) ADD (attention deficit disorder) Cardiomyopathy Closed right ankle fracture (~09/2019) Depression with suicidal ideation Hospitalized at [facility] psych 02/15-02/26/22. Erectile dysfunction (10/03/17) Gynecomastia, male (03/11/18) secondary to methadone Hyperglycemia (09/05/17) Hyperprolactinemia (04/15/18) Hypertension Hypogonadism, male (03/24/18) Pending appt with Dr. Charles at [facility] in [place] Methadone dependence (04/01/18) [facility] in [facility]. Hx intranasal and oral use of opioids. Meets with therapist twice monthly; has had take-home in the past. QT prolongation Surgical History (Updated 05/14/22 @ 22:40 by Jamie Haile MD) S/P hernia repair Family History Mother Diabetes Cancer thyroid cancer Father Diabetes Essential hypertension Paternal Grandfather No problems noted. Maternal Grandfather Stroke Paternal Uncle Cancer stomach cancer Social History Smoking/Tobacco Use Status: Current every day Tobacco Type: cigarettes Quit status: considering quitting Counseling given: provider counseling Smoking risk assessment performed?: Yes Alcohol Intake: current Alcohol Intake frequency: 3 or more drinks per day Alcohol type: hard liquor Counseling given: Yes Drug use: Occasionally Substance use type: marijuana Counseling provided: treatment program Details: Patient states he had a fifth of vodka about an hour before his ED arrival Household members: family Housing: other Details: living with his father Number of Children: 1 Education Level: high school 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 HEENT: NC/AT. Normal facial exam. Eyes: Normal conjunctiva and sclera. Neck: Supple. Trachea midline. Lungs: Normal respiratory effort. Lungs are clear. Cor: RRR without murmur/gallop. Good radial pulses. GI: Soft. NT/ND. No guarding or rebound. Neuro: A+O x 3. Normal speech, gait. Cranial nerves II - XII grossly intact. No gross motor or sensory deficit. Ext: No C/C/E. Skin: Warm and dry without rash. Psych: Reporting visual hallucinations; no SI or HI
[2022-05-14 22:03] VITALS: BP 150/90; PULSE 95; RESP 18; TEMP 36.8; O2SAT 99
[2022-05-14 22:44] LABS: Abs Immature Grans 0.02 10^3/uL (0.0-0.06); Absolute Basophil Count 0.02 10^3/uL (0.0-0.2); Absolute Eosinophil Count 0.01 10^3/uL (0.0-0.7); Absolute Lymphocyte Count 1.54 10^3/uL (1.2-3.4); Absolute Monocyte Count 0.47 10^3/uL (0.1-0.8); Absolute Neutrophil Count 5.63 10^3/uL (1.2-6.7); Basophils % 0.3; Eosinophils % 0.1; HCT 39.9 % (40.0-50.0); HGB 13.5 g/dL (13.5-17.5); Immature Grans % 0.3; MCH 32.1 pg (27.0-33.0); MCHC 33.8 % (32.0-36.0); MCV 95 fL (80-95); MPV 8.9 fL (8.0-11.0); Monocytes % 6.1; Neutrophils % 73.2; Platelet Count 196 10^3/uL (130-400); RDW 13.8 % (11.8-14.1); RDW-SD 47.6 fL; WBC 7.69 10^3/uL (4.4-10.8)
[2022-05-14 23:02] LABS: ALT 93 U/L (16-63); AST 41 U/L (15-37); Albumin 3.8 g/dL (3.4-5.0); Alkaline Phosphatase 83 U/L (46-116); Anion Gap 10.7 mmol/L (3-11); BUN 13 mg/dL (7-18); Bilirubin, Total 0.2 mg/dL (0.2-1.0); CO2 27.3 mmol/L (21.0-32.0); CREATININE 0.9 mg/dL (0.70-1.30); Calcium 9.4 mg/dL (8.5-10.1); Chloride 107 mmol/L (98-107); Glucose 94 mg/dL (74-106); Potassium 3.9 mmol/L (3.5-5.1); Sodium 145 mmol/L (136-145); Total Protein 7.2 g/dL (6.4-8.2)
[2022-05-14 23:25] LABS: Acetaminophen < 2 ug/mL (10-30); Salicylate 4.6 mg/dL (<2.8)
[2022-05-15 00:25] LABS: *AMPHETAMINES SCREEN URINE Positive (Negative); *BARBITURATES SCREEN URINE Positive (Negative); *BENZODIAZEPINES SCREEN URINE Positive (Negative); Cannabinoids THC Negative (Negative); Cocaine Screen,Urine Negative (Negative); METHADONE URINE SCREEN Negative (Negative); OPIATES URINE SCREEN Negative (Negative)
[2022-05-15 00:32] LABS: Tricyclic Antidepressants Negative (Negative)
--- NOTE | 2022-05-15 01:59 | NUR.NOTE ---
Nursing Note: Verified with provider around this time regarding whether patient needs IV placement at this time, as patient has already voiced preference to leave AMA. Provider decided IV is to stay in place, in case of ETOH withdrawals. Will continue to monitor.
[2022-05-15] MEDS: chlordiazePOXIDE 25 MG CAP PO (02:50)
[2022-05-15] MEDS: QUEtiapine 50 MG TAB PO (02:50)
--- NOTE | 2022-05-15 10:08 | NUR.NOTE ---
Nursing Note: [facility] called asking for the time of the AMA disposition.
== END 2022-05-15 05:13 | disposition left against medical advice (07) ==
PROVIDERS: Emergency Provider Emergency Medicine; PCP Family Medicine
DX: R10.10 Upper abdominal pain, unspecified (principal); F41.9 Anxiety disorder, unspecified; R44.1 Visual hallucinations; F11.20 Opioid dependence, uncomplicated; Z79.899 Other long term (current) drug therapy; Z53.29 Procedure and treatment not carried out because of patient's decision for other reasons
CPT/HCPCS: 80053; 80307; 99283; 80320; 80329; 85025

== ENCOUNTER → 2022-05-15 00:25 | Outpatient (CLI) | payer MEDICAID, SELFPAY | PROVIDERS: PCP Family Medicine; Visit Provider Family Medicine ==

== ENCOUNTER 2022-05-15 07:10 | Inpatient (IN) | payer MEDICAID, SELFPAY ==
[2022-05-15] VITALS (63 sets, daily range): BP systolic 94–158; BP diastolic 57–120; PULSE 77–137; RESP 10–30; TEMP 36.9–37.2; O2SAT 87–98
--- NOTE | 2022-05-15 07:47 | NUR.NOTE ---
Nursing Note: Per Berna Blount RN after patient eloped @ 0512 he went to [facility] and received 16mg suboxone around 0555.
--- NOTE | 2022-05-15 08:08 | ED.GENADUL_ITS ---
Discharge Plan Disposition Patient Disposition: [facility] INPATIENT Condition: Fair Discharge Details Clinical Impression: Alcohol withdrawal, Anxiety Admit Date/Time: 05/15/22 09:29 Admit Provider: Gabo Logan Attending Provider: Gabo Logan Primary Care Provider: Sophia Kelsey ED Provider: Jorgito Hicks Discharge Data Discharge Date/Time-TO BE ENTERED AT DEPARTURE: 05/15/22 11:31 Medical Decision Making 800 --41-year-old male with history of polysubstance abuse, recently admitted for alcohol withdrawal and was being treated with benzodiazepines which he believes were weaned too quickly and not appropriately dosed, left AMA, returned last night and was in the emergency department and then left again AMA, returns now again seeking treatment. Patient is anxious and tachycardic. I am concerned for acute alcohol withdrawal. Patient has Ciwa 10. I think patient would benefit from phenobarbital for alcohol withdrawal given prior failure on benzodiazepine protocol. Patient is reluctant to take phenoba rbital and is somewhat demanding in requesting high-dose benzodiazepine. Do not think this is in the patient's best interest again given recent failure which I explained to the patient. 840 --patient reassessed remains tachycardic and I remain concerned about acute alcohol withdrawal. He is quite anxious. He is now agreeable to phenobarbital therapy and provided informed consent. I did inform the patient that if phenobarb therapy was not successful, we could attempt other therapeutics. Plan to load with 6mg/kg. Plan for admission. 930 -- I spoke with the hospitalist on-call, Dr. Logan, discussed ED presentation and course, he agrees with phenobarbital therapy and will accept patient for admission. Care transitioned at time of admission. Lab Data Lab results reviewed: Yes I reviewed the patient's lab results. Lab results narrative: Reviewed those labs available at time of admission. HPI General Mode of arrival: ambulatory . Date/Time Provider Initiated Documentation: 05/15/22 07:41 . Limitations to Documentation: no limitations . Information obtained by: patient . HPI Narrative: 41yo male with history of polysubstance abuse, currently on Suboxone to treat opioid use disorder, alcoholism, recently admitted for alcohol withdrawal and treated with benzodiazepine. Patient notes he was not receiving appropriate dose and was weaned too quickly and left AMA yesterday. Since leaving he has consumed alcohol. He returned last night to the emergency department and then left AMA again to secure his belongings. He returns again seeking treatment for alcoholism. He notes he did drink a beer prior to arrival this morning. He typically drinks 1/2 gallon of vodka in a 24-hour period. Patient is feeling anxious. Symptoms moderate. No modifiers. Patient did go to [facility] today for suboxone dose. Related Data Home Medications Medication Instructions Recorded Confirmed fluoxetine 60 mg tablet 60 mg PO DAILY #30 tabs 03/22/22 05/15/22 olanzapine 10 mg tablet 10 mg PO DAILY #30 tabs 05/01/22 05/15/22 chlordiazepoxide HCl 25 mg capsule 25 mg PO BID PRN alcohol 05/02/22 05/14/22 withdrawal #7 caps quetiapine 50 mg tablet 50 mg PO BID #60 tabs 05/08/22 05/15/22 lisdexamfetamine 50 mg capsule 50 mg PO QAM #28 caps 05/10/22 05/15/22 clonidine HCl 0.1 mg tablet 1 tab PO BID 05/11/22 05/15/22 buprenorphine 8 mg-naloxone 2 mg 2 film buccal DAILY 05/16/22 05/16/22 sublingual film acamprosate 333 mg tablet,delayed 666 mg PO TID #0 tabs 05/20/22 release buspirone 5 mg tablet 20 mg PO TID #0 tabs 05/20/22 folic acid 1 mg tablet 1 mg PO QAM #0 tabs 05/20/22 hydroxyzine pamoate 25 mg capsule 25 mg PO TID PRN PRN Anxiety #0 05/20/22 (Vistaril) caps nicotine 10 mg inhalation 30 cartridge inhalation Q2H PRN 05/20/22 cartridge (Nicotrol) PRN #0 ea polyethylene glycol 3350 17 gram 17 g PO DAILY PRN PRN Constipation 05/20/22 oral powder packet #0 ea ramipril 5 mg capsule 5 mg PO DAILY #0 caps 05/20/22 thiamine mononitrate (vit B1) 100 100 mg PO QAM #0 tabs 05/20/22 mg tablet (Vitamin B-1 (mononitrate)) triamcinolone acetonide 0.1 % 0 ml topical TID #0 mL 05/20/22 lotion Previous Rx's Medication Instructions Recorded fluoxetine 60 mg tablet 60 mg PO DAILY #30 tabs 03/22/22 olanzapine 10 mg tablet 10 mg PO DAILY #30 tabs 05/01/22 chlordiazepoxide HCl 25 mg capsule 25 mg PO BID PRN alcohol 05/02/22 withdrawal #7 caps quetiapine 50 mg tablet 50 mg PO BID #60 tabs 05/08/22 lisdexamfetamine 50 mg capsule 50 mg PO QAM #28 caps 05/10/22 acamprosate 333 mg tablet,delayed 666 mg PO TID #0 tabs 05/20/22 release buspirone 5 mg tablet 20 mg PO TID #0 tabs 05/20/22 folic acid 1 mg tablet 1 mg PO QAM #0 tabs 05/20/22 hydroxyzine pamoate 25 mg capsule 25 mg PO TID PRN PRN Anxiety #0 05/20/22 (Vistaril) caps nicotine 10 mg inhalation 30 cartridge inhalation Q2H PRN 05/20/22 cartridge (Nicotrol) PRN #0 ea polyethylene glycol 3350 17 gram 17 g PO DAILY PRN PRN Constipation 05/20/22 oral powder packet #0 ea ramipril 5 mg capsule 5 mg PO DAILY #0 caps 05/20/22 thiamine mononitrate (vit B1) 100 100 mg PO QAM #0 tabs 05/20/22 mg tablet (Vitamin B-1 (mononitrate)) triamcinolone acetonide 0.1 % 0 ml topical TID #0 mL 05/20/22 lotion Allergies Allergy/AdvReac Type Severity Reaction Status Date / Time No Known Allergies Allergy Verified 05/15/22 07:23 General Stated Complaint: PsychEval PACO: 2 Review of Systems All systems reviewed & are unremarkable except as noted in HPI and below Constitutional Constitutional: Denies fever(s) Cardiovascular Cardiovascular: Denies chest pain and Denies dyspnea Respiratory Respiratory: Denies dyspnea Psychiatric Psychiatric: Reports anxiety, Denies homicidal ideation and Denies suicidal ideation PFSH All Active Problems Facial rash (Acute) Discharge planning issues (Acute) Hallucination, visual (Acute) Anxiety (Chronic) Opioid dependence in remission (Chronic) Polysubstance abuse (Chronic) Alcohol withdrawal (Acute) Alcohol abuse (Chronic) Prolonged Q-T interval on ECG (Acute) Depression with anxiety (Acute) Acute opioid withdrawal (Acute) Diarrhea (Acute) Tobacco abuse (Acute 11/19/17) 1/2 ppd HFrEF (heart failure with reduced ejection fraction) (Acute) Anxiety (Chronic 09/05/17) Medical History ADD (attention deficit disorder) Cardiomyopathy Closed right ankle fracture (~09/2019) Depression with suicidal ideation Hospitalized at [facility] psych 02/15-02/26/22. Erectile dysfunction (10/03/17) Gynecomastia, male (03/11/18) secondary to methadone Hyperglycemia (09/05/17) Hyperprolactinemia (04/15/18) Hypertension Hypogonadism, male (03/24/18) Pending appt with Dr. Charles at [facility] in [place] Methadone dependence (04/01/18) [facility] in [facility] Hx intranasal and oral use of opioids. Meets with therapist twice monthly; has had take-home in the past. QT prolongation Surgical History S/P hernia repair Family History Mother Diabetes Cancer thyroid cancer Father Diabetes Essential hypertension Paternal Grandfather No problems noted. Maternal Grandfather Stroke Paternal Uncle Cancer stomach cancer Other Family history of diabetes mellitus (DM) Social History Smoking/Tobacco Use Status: Current every day Tobacco Type: cigarettes Quit status: considering quitting Counseling given: provider counseling Smoking risk assessment performed?: Yes Alcohol Intake: current Alcohol Intake frequency: 3 or more drinks per day Alcohol type: hard liquor Counseling given: Yes Drug use: Occasionally Substance use type: marijuana Counseling provided: treatment program Details: Patient states he had a fifth of vodka about an hour before his ED arrival Household members: family Housing: other Details: living with his father Number of Children: 1 Education Level: high school 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, 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 Exam Const General: cooperative and no acute distress HENMT Head: atraumatic Mouth: moist mucous membranes Eyes Conjunctivae: normal conjunctivae Sclera: normal sclerae Neck Neck: trachea midline and supple Resp Auscultation: clear to auscultation bilaterally, no rales, no rhonchi and no wheezes Cardio Rate: tachycardic Rhythm: regular rhythm GI Palpation: soft, not firm, no guarding, no masses, not rigid and nontender Skin General skin exam: no rashes or lesions noted Neuro General: patient alert, patient awake, patient oriented x3 and tone normal Extrem General: no edema Psych Appearance: grossly normal Mental Status: mental status grossly normal Mood: anxious mood Affect: anxious affect Thought Content: no homicidality and suicidality Course Vital Signs Vital signs: Vital Signs Temperature 37.2 C 05/15/22 07:17 Pulse 124 H 05/15/22 07:17 Respiratory Rate 20 05/15/22 07:17 Blood Pressure 158/105 H 05/15/22 07:17 Pulse Oximetry 96 05/15/22 07:17 Temperature 37.2 C 05/15/22 07:17 Temperature Source Temporal Artery Scan 05/15/22 07:17 Pulse 124 H 05/15/22 07:17 Respiratory Rate 20 05/15/22 07:17 Respiratory Effort 05/15/22 07:21 Blood Pressure 158/105 H 05/15/22 07:17 Blood Pressure Position Supine 05/15/22 07:17 Pulse Oximetry 96 05/15/22 07:17 Oxygen Delivery Method Room Air 05/15/22 07:17 Oxygen Flow Rate 0 05/15/22 07:17 Pain Level 0 05/15/22 07:17 Critical Care Time Critical Care Time Critical Care Time: Yes Total Critical Care Time: 40 Attestation: I spent greater than 40 minutes addressing this patient's immediate life threats. Please see MDM section of note. This time was spent engaged in work directly related to the patient's care, exclusive of separate procedures, and failure to initiate these interventions would have likely resulted in clinically significant or life threatening deterioration in the patient's condition. PAWSS Have you Been Recently Intoxicated or Drunk Within the Last 30 days?: Yes Have you Ever Experienced Previous Episodes of Alcohol Withdrawal?: Yes Have you ever Experienced Withdrawal Seizures?: Yes Have you ever Experienced Delirium Tremens(DT)s?: Yes Have you ever undergone Alcohol Rehabilitation Treatment (i.e, inpt ot outpatient treatment programs)?: Yes Have you ever Experienced Blackouts?: Yes Have you ever Combined Alcohol with other Downers within the last 90 days?: No Have you ever Combined Alcohol with any other Substance of Abuse during the last 90 days?: No Evidence of Increased Autonomic Activity (i.e. HR>120, tremor, sweating, agitation, nausea)?: Yes Result: 7
[2022-05-15 10:06] LABS: Source Nasal/Nares
[2022-05-15 10:24] LABS: Abs Immature Grans 0.01 10^3/uL (0.0-0.06); Absolute Basophil Count 0.02 10^3/uL (0.0-0.2); Absolute Eosinophil Count 0.05 10^3/uL (0.0-0.7); Absolute Lymphocyte Count 2.42 10^3/uL (1.2-3.4); Absolute Monocyte Count 0.46 10^3/uL (0.1-0.8); Basophils % 0.3; Eosinophils % 0.8; HCT 40.9 % (40.0-50.0); HGB 13.8 g/dL (13.5-17.5); Immature Grans % 0.2; Lymphocytes % 36.9; MCH 32.1 pg (27.0-33.0); MCHC 33.7 % (32.0-36.0); MCV 95 fL (80-95); MPV 8.8 fL (8.0-11.0); Neutrophils % 54.8; Platelet Count 197 10^3/uL (130-400); RDW 13.9 % (11.8-14.1); RDW-SD 48.2 fL; WBC 6.56 10^3/uL (4.4-10.8)
[2022-05-15 10:33] LABS: *AMPHETAMINES SCREEN URINE Positive (Negative); *BARBITURATES SCREEN URINE Negative (Negative); *BENZODIAZEPINES SCREEN URINE Positive (Negative); Cannabinoids THC Negative (Negative); Cocaine Screen,Urine Negative (Negative); METHADONE URINE SCREEN Negative (Negative); OPIATES URINE SCREEN Negative (Negative)
[2022-05-15 10:39] LABS: Tricyclic Antidepressants Negative (Negative)
[2022-05-15 10:45] LABS: ALT 93 U/L (16-63); AST 40 U/L (15-37); Albumin 4.1 g/dL (3.4-5.0); Alkaline Phosphatase 93 U/L (46-116); Anion Gap 9.9 mmol/L (3-11); BUN 10 mg/dL (7-18); Bilirubin, Total 0.3 mg/dL (0.2-1.0); CO2 27.1 mmol/L (21.0-32.0); CREATININE 0.7 mg/dL (0.70-1.30); Calcium 9.8 mg/dL (8.5-10.1); Chloride 104 mmol/L (98-107); Glucose 81 mg/dL (74-106); Potassium 3.9 mmol/L (3.5-5.1); Sodium 141 mmol/L (136-145); Total Protein 7.8 g/dL (6.4-8.2)
[2022-05-15 10:55] LABS: ETHANOL BLOOD 41.4 mg/dL (<10); Magnesium 2.2 mg/dL (1.8-2.4); TSH (W/Ref FT4) 0.57 uIU/mL (0.36-3.74)
[2022-05-15] MEDS: Normal Saline 1,000 ML 125 ML IV (11:24)
--- NOTE | 2022-05-15 12:22 | NUR.NOTE ---
Patient stated to me that he received his covid-19 vaccine while he was in skilled nursing. When asked what facility, he said [place]. So, I called [facility] and spoke with Peyton Montenegro RN from the medical department and she did not see a record of it but she will look more into it as they have a slow system up there. She recommended calling [facility] and asking them. So I did ([phone]) And spoke with a nurse by the name of Lashell. She also stated they did not have any record of him having a covid-19 vaccine while he was there. Within a few more minutes, Peyton Montenegro RN called me back and stated that she found record of receiving his covid-19 vaccine. He has received his first and second dose. Unknown date for the first vaccine but the second dose of Moderna was given in February of 2021. Nursing Note:
--- NOTE | 2022-05-15 12:36 | W.PM.HP.N ---
Date of service: 05/15/22 Time of Service: 12:36 Assessment and Plan Assessment and plan (1) Alcohol withdrawal: Status: Acute Assessment and plan: Continue phenobarbital protocol for acute delirium tremens. While he does not appear to be hallucinating at present he was having visual hallucinations in the emergency department. Patient will be treated in the intensive care unit with parenteral phenobarbital on the active withdrawal regimen. See order set for details. Monitor RASS scale to sedate to a level of 0 to -1. Critical care time spent interviewing and examining the patient, reviewing studies, discussing case with patient's nurse and consulting physicians was 30 minutes (2) Anxiety: Status: Chronic Assessment and plan: Resume fluoxetine. Consider addition of BuSpar. Resume his quetiapine and olanzapine. (3) Opioid dependence in remission: Status: Chronic Assessment and plan: Continue his buprenorphine/naloxone treatment (4) Depression with anxiety: Status: Acute Assessment and plan: Resume meds as listed above. (5) Cardiomyopathy: Assessment and plan: Patient does not appear to be in acute heart failure at present time however he has IV fluids running which I will discontinue. Does not appear to be on any chronic diuretics nor on any DANISH inhibitor or angiotensin receptor patricia. His latest echo is from January 28, 2022 which showed an LVEF of 45% with global hypokinesis of the LV. No significant valvular heart disease. Normal RV size and function. Is not clear to me as to why he is not on goal-directed therapy such as an angiotensin receptor or an DANISH inhibitor nor the use of an SGLT2 inhibitor. It appears from prescriptions filled through the emergency department he was put on propranolol yet he is chronically on clonidine. He really should not be on a combination of an alpha patricia or beta-patricia together due to the increased risk of hypertensive crisis if he were to abruptly stop the alpha-patricia. If he needs treatment for hypertension I would put him on either an DANISH inhibitor or an ARB. Chlorthalidone or spironolactone would be a good choice. (6) ADD (attention deficit disorder): Assessment and plan: Patient has lisdexamfetamine listed as a medication but it does not appear that he is had this refilled in quite some time. I am not going to restart this at this time. Qualifiers: Hyperactivity presence: present Attention deficit-hyperactivity disorder type: predominantly hyperactive Qualified Code(s): F90.1 - Attention-deficit hyperactivity disorder, predominantly hyperactive type History of Present Illness History of Present Illness Chief Complaint: Alcohol withdrawal Narrative: 41-year-old male with a history of chronic alcoholism, opioid dependence,ADD alcoholic cardiomyopathy, hypertension, hypergonadism, methadone dependence, depression who was just hospitalized at [facility] from 05/11 through 05/13/2022 for acute alcohol withdrawal. He was refusing treatment with phenobarbital and was trialed on benzodiazepines including scheduled dose of Librium and symptomatic triggered lorazepam. He was improving but then started requesting more frequent Ativan despite not having objective signs of worsening withdrawal. Lorazepam was discontinued and the patient left AGAINST MEDICAL ADVICE. He states that he went home and started drinking again he does not remember how much alcohol he had last night he remembers falling asleep watching the [employer] baseball game. This morning he had about half of the 16 ounce hard cider and he had a full 16 ounce beer. He denies use of any other illicit drugs such as amphetamines cocaine or heroin but does admit to occasional use of marijuana. Review of Systems All systems reviewed & are unremarkable except as noted in HPI and below PFSH All Active Problems (Updated 05/15/22 @ 13:56 by Gabo Logan MD) Hallucination, visual (Acute) Alcohol withdrawal (Acute) Anxiety (Chronic) Discharge planning issues (Acute) DVT prophylaxis (Acute) Opioid dependence in remission (Chronic) Polysubstance abuse (Chronic) Suicidal ideation (Acute) Alcohol withdrawal (Acute) Opiate withdrawal (Acute) Alcohol abuse (Chronic) Prolonged Q-T interval on ECG (Acute) Depression with anxiety (Acute) Acute opioid withdrawal (Acute) Hypokalemia (Chronic) Diarrhea (Acute) Tobacco abuse (Acute 11/19/17) 1/2 ppd HFrEF (heart failure with reduced ejection fraction) (Acute) Anxiety (Chronic 09/05/17) Medical History ADD (attention deficit disorder) Cardiomyopathy Closed right ankle fracture (~09/2019) Depression with suicidal ideation Hospitalized at [facility] psych 02/15-02/26/22. Erectile dysfunction (10/03/17) Gynecomastia, male (03/11/18) secondary to methadone Hyperglycemia (09/05/17) Hyperprolactinemia (04/15/18) Hypertension Hypogonadism, male (03/24/18) Pending app[facility] [place] Methadone dependence (04/01/18) [facility] in [facility] Hx intranasal and oral use of opioids. Meets with therapist twice monthly; has had take-home in the past. QT prolongation Surgical History S/P hernia repair Family History Mother Diabetes Cancer thyroid cancer Father Diabetes Essential hypertension Paternal Grandfather No problems noted. Maternal Grandfather Stroke Paternal Uncle Cancer stomach cancer Other Family history of diabetes mellitus (DM) Social History Smoking/Tobacco Use Status: Current every day Tobacco Type: cigarettes Quit status: considering quitting Counseling given: provider counseling Smoking risk assessment performed?: Yes Alcohol Intake: current Alcohol Intake frequency: 3 or more drinks per day Alcohol type: hard liquor Counseling given: Yes Drug use: Occasionally Substance use type: marijuana Counseling provided: treatment program Details: Patient states he had a fifth of vodka about an hour before his ED arrival Household members: family Housing: other Details: living with his father Number of Children: 1 Education Level: high school 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, 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 Meds Allergies and Home Medications Allergies Allergy/AdvReac Type Severity Reaction Status Date / Time No Known Allergies Allergy Verified 05/15/22 07:23 Home Medications Medication Instructions Recorded Confirmed Type fluoxetine 60 mg tablet 60 mg PO DAILY #30 tabs 03/22/22 05/15/22 Rx olanzapine 10 mg tablet 10 mg PO DAILY #30 tabs 05/01/22 05/15/22 Rx chlordiazepoxide HCl 25 mg capsule 25 mg PO BID PRN alcohol 05/02/22 05/14/22 Rx withdrawal #7 caps quetiapine 50 mg tablet 50 mg PO BID #60 tabs 05/08/22 05/15/22 Rx lisdexamfetamine 50 mg capsule 50 mg PO QAM #28 caps 05/10/22 05/15/22 Rx clonidine HCl 0.1 mg tablet 1 tab PO BID 05/11/22 05/15/22 History buprenorphine 8 mg-naloxone 2 mg 2 tab sublingual DAILY 05/13/22 05/15/22 History sublingual tablet Exam Narrative Exam Narrative: Middle-aged white male who is somnolent but easily aroused. Patient had been medicated with phenobarbital both in the emergency department again after arrival to the intensive care unit. He easily is awaken and answers questions appropriately. He has some slight diaphoresis and he has tremulousness in his hands. HEENT is unremarkable Lungs are clear to auscultation Heart is regular to slightly tachycardic. Abdomen soft nondistended nontender Extremities without peripheral cyanosis or edema Results Labs Result diagrams: 05/15/22 10:19 05/15/22 10:19 Labs: Laboratory Results - last 24 hr 05/15/22 05/15/22 05/15/22 07:40 10:00 10:19 WBC RBC Hgb Hct MCV MCH MCHC RDW Plt Count MPV Immature Gran % Neutrophils % Lymphocytes % Monocytes % Eosinophils % Basophils % Nucleated RBC % Absolute Neutrophils Absolute Lymphocytes Absolute Monocytes Absolute Eosinophils Absolute Basophils Sodium Potassium Chloride Carbon Dioxide Anion Gap BUN Creatinine Estimated GFR/1.73 m2 Glucose Calcium Magnesium 2.2 Total Bilirubin AST ALT Alkaline Phosphatase Total Protein Albumin TSH 0.57 Urine Opiates Screen Negative Urine Methadone Screen Negative Ur Barbiturates Screen Negative Ur Tricyclics Screen Negative Ur Amphetamines Screen Positive A U Benzodiazepines Scrn Positive A Urine Cocaine Screen Negative Ur THC Screen Negative Ethyl Alcohol 41.4 H COVID-19 Source Nasal/Nares 05/15/22 05/15/22 10:19 10:19 WBC 6.56 RBC 4.30 L Hgb 13.8 Hct 40.9 MCV 95 MCH 32.1 MCHC 33.7 RDW 13.9 Plt Count 197 MPV 8.8 Immature Gran % 0.2 Neutrophils % 54.8 Lymphocytes % 36.9 Monocytes % 7.0 Eosinophils % 0.8 Basophils % 0.3 Nucleated RBC % 0.0 Absolute Neutrophils 3.60 Absolute Lymphocytes 2.42 Absolute Monocytes 0.46 Absolute Eosinophils 0.05 Absolute Basophils 0.02 Sodium 141 Potassium 3.9 Chloride 104 Carbon Dioxide 27.1 Anion Gap 9.9 BUN 10 Creatinine 0.7 Estimated GFR/1.73 m2 >= 60.00 Glucose 81 Calcium 9.8 Magnesium Total Bilirubin 0.3 AST 40 H ALT 93 H Alkaline Phosphatase 93 Total Protein 7.8 Albumin 4.1 TSH Urine Opiates Screen Urine Methadone Screen Ur Barbiturates Screen Ur Tricyclics Screen Ur Amphetamines Screen U Benzodiazepines Scrn Urine Cocaine Screen Ur THC Screen Ethyl Alcohol COVID-19 Source Last Vital Signs Temp 36.9 C 05/15/22 11:50 Pulse 98 H 05/15/22 12:00 Resp 14 05/15/22 12:00 BP 136/90 05/15/22 12:00 Pulse Ox 94 05/15/22 12:00 PAWSS Have you Been Recently Intoxicated or Drunk Within the Last 30 days?: Yes Have you Ever Experienced Previous Episodes of Alcohol Withdrawal?: Yes Have you ever Experienced Withdrawal Seizures?: Yes Have you ever Experienced Delirium Tremens(DT)s?: Yes Have you ever undergone Alcohol Rehabilitation Treatment (i.e, inpt ot outpatient treatment programs)?: Yes Have you ever Experienced Blackouts?: Yes Have you ever Combined Alcohol with other Downers within the last 90 days?: No Have you ever Combined Alcohol with any other Substance of Abuse during the last 90 days?: No Positive Blood Alcohol level on Presentation? [PCS.BAL]: Yes Evidence of Increased Autonomic Activity (i.e. HR>120, tremor, sweating, agitation, nausea)?: No Result: 7
[2022-05-15] MEDS: OLANZapine 10 MG TAB PO (13:34)
[2022-05-15] MEDS: QUEtiapine 25 MG TAB 50 MG PO ×2 (13:34→21:01)
[2022-05-15] MEDS: cloNIDine 0.1 MG TAB PO ×2 (13:54→21:01)
[2022-05-15 14:28] LABS: COVID-19 PCR Negative (Negative)
[2022-05-15] MEDS: Normal Saline Flush 10 ML SYR IVP (17:14)
[2022-05-16] VITALS (27 sets, daily range): BP systolic 89–136; BP diastolic 44–89; PULSE 64–99; RESP 10–17; TEMP 36.5–37.1; O2SAT 90–97
[2022-05-16] MEDS: PHENobarbital 130 MG/ML VIAL IVP ×2 (06:54→09:32)
[2022-05-16] MEDS: Normal Saline Flush 10 ML SYR IVP ×2 (06:55→09:32)
[2022-05-16 06:58] LABS: ALT 68 U/L (16-63); AST 26 U/L (15-37); Albumin 3.1 g/dL (3.4-5.0); Alkaline Phosphatase 76 U/L (46-116); Anion Gap 4.9 mmol/L (3-11); BUN 15 mg/dL (7-18); Bilirubin, Direct 0.1 mg/dL (0.0-0.2); Bilirubin, Total 0.3 mg/dL (0.2-1.0); CO2 30.1 mmol/L (21.0-32.0); CREATININE 0.7 mg/dL (0.70-1.30); Calcium 9.1 mg/dL (8.5-10.1); Chloride 106 mmol/L (98-107); Glucose 95 mg/dL (74-106); Magnesium 2.1 mg/dL (1.8-2.4); PHOSPHORUS 4.2 mg/dL (2.6-4.7); Potassium 4.1 mmol/L (3.5-5.1); Sodium 141 mmol/L (136-145); Total Protein 6.1 g/dL (6.4-8.2)
[2022-05-16] MEDS: Multivitamin TAB 1 TAB PO (08:48)
[2022-05-16] MEDS: Buprenorphine/Naloxone 8 mg/2 mg FILM 2 EACH SL (08:48)
[2022-05-16] MEDS: FLUoxetine 20 MG CAP 60 MG PO (08:49)
[2022-05-16] MEDS: Thiamine 100 MG TAB PO (08:49)
[2022-05-16] MEDS: cloNIDine 0.1 MG TAB PO ×2 (08:49→20:07)
[2022-05-16] MEDS: Folic Acid 1 MG TAB PO (08:49)
[2022-05-16] MEDS: Ramipril 5 MG CAP PO (08:49)
[2022-05-16] MEDS: QUEtiapine 25 MG TAB 50 MG PO (08:49)
[2022-05-16] MEDS: OLANZapine 10 MG TAB PO (08:49)
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
[2022-05-16 09:12] LABS: *AMPHETAMINES SCREEN URINE Positive (Negative); *BARBITURATES SCREEN URINE Positive (Negative); *BENZODIAZEPINES SCREEN URINE Positive (Negative); Cannabinoids THC Positive (Negative); Cocaine Screen,Urine Negative (Negative); METHADONE URINE SCREEN Negative (Negative); OPIATES URINE SCREEN Negative (Negative)
[2022-05-16 09:13] LABS: Tricyclic Antidepressants Negative (Negative)
--- NOTE | 2022-05-16 12:36 | PGE_ITS ---
Date of Service Date of service: 05/16/22 Time of Service: 12:37 Assessment and Plan Assessment and plan (1) Alcohol withdrawal: Status: Acute Assessment and plan: Continue phenobarbital protocol to a hard stop of 30 mg/kg. (2) Anxiety: Status: Chronic Assessment and plan: We will increase his quetiapine to 100 mg twice a day. Continue current dose of olanzapine 10 mg daily. Continue fluoxetine 60 mg daily.. (3) Opioid dependence in remission: Status: Chronic Assessment and plan: Continue his buprenorphine/naloxone treatment (4) Depression with anxiety: Status: Acute Assessment and plan: Resume meds as outlined above. (5) ADD (attention deficit disorder): Assessment and plan: Patient reports that he has recently filled his Vyvanse therefore I have renewed it begetting today Qualifiers: Hyperactivity presence: present Attention deficit-hyperactivity di sorder type: predominantly hyperactive Qualified Code(s): F90.1 - Attention- deficit hyperactivity disorder, predominantly hyperactive type Subjective Subjective Interval history since last seen: Patient remarks she is feeling more agitated and anxious. Not hallucinating. He is requesting to be given benzodiazepines. He would like his Librium. I explained to him that he is on a phenobarbital protocol and that I am not going to prescribe benzodiazepines. I do want a work with him on his anxiety and agitation as well as his alcohol cravings. I will give him a trial of Campral and increase his quetiapine 200 mg twice a day. Patient still has room for further phenobarbital as needed as he has not hit his maximum cumulative dose of 30 mg/kg which is calculated to be 2348 mg. Patient is indicated that once he reaches max amount of phenobarbital that if his anxiety is not treated with benzodiazepines and he will probably do a runner. I explained to him that we cannot continue this cycle of leaving AGAINST MEDICAL ADVICE and being readmitted for the same problem. Exam Narrative Exam Narrative: Dangelo initially was lying in bed with his eyes shut seem to be sleeping but he awakened easily to the calling of his name. As he talked about his alcohol problem and his repeated admissions and repeated leaving's of the hospital he went on a litany of complaints of doctors lying to him. I explained to him that we want a work with him but we cannot prescribe both benzodiazepines and phenobarbital at the same time. As he is currently on fairly hefty dose of phenobarbital I cannot give him benzodiazepines at the same time. We talked about his anxiety issues and he has been tried on BuSpar before without success. He is already on fluoxetine. Patient's not exhibiting any diaphoresis has no tremors and no other signs of acute alcohol withdrawal. The problems we have had with scoring him when he was on the benzodiazepine protocol is that the CIWA score would always score higher based on his subjective feelings of anxiety and reported hallucinations. Objective Last Vital Signs Temp 36.8 C 05/16/22 08:49 Pulse 86 05/16/22 09:02 Resp 17 05/16/22 09:02 BP 106/74 05/16/22 09:02 Pulse Ox 97 05/16/22 09:02 Laboratory Results - last 24 hr 05/15/22 05/15/22 05/16/22 10:00 14:19 06:15 Sodium 141 Potassium 4.1 Chloride 106 Carbon Dioxide 30.1 Anion Gap 4.9 BUN 15 Creatinine 0.7 Estimated GFR/1.73 m2 >= 60.00 Glucose 95 Calcium 9.1 Phosphorus 4.2 Magnesium 2.1 Total Bilirubin 0.3 Conjugated Bilirubin 0.1 AST 26 ALT 68 H Alkaline Phosphatase 76 Total Protein 6.1 L Albumin 3.1 L Urine Opiates Screen Urine Methadone Screen Ur Barbiturates Screen Ur Tricyclics Screen Ur Amphetamines Screen U Benzodiazepines Scrn Urine Cocaine Screen Ur THC Screen COVID-19 Source Cancelled SARS-CoV-2 (PCR) Negative Cancelled 05/16/22 07:30 Sodium Potassium Chloride Carbon Dioxide Anion Gap BUN Creatinine Estimated GFR/1.73 m2 Glucose Calcium Phosphorus Magnesium Total Bilirubin Conjugated Bilirubin AST ALT Alkaline Phosphatase Total Protein Albumin Urine Opiates Screen Negative Urine Methadone Screen Negative Ur Barbiturates Screen Positive A Ur Tricyclics Screen Negative Ur Amphetamines Screen Positive A U Benzodiazepines Scrn Positive A Urine Cocaine Screen Negative Ur THC Screen Positive A COVID-19 Source SARS-CoV-2 (PCR) PAWSS Have you Been Recently Intoxicated or Drunk Within the Last 30 days?: Yes Have you Ever Experienced Previous Episodes of Alcohol Withdrawal?: Yes Have you ever Experienced Withdrawal Seizures?: Yes Have you ever Experienced Delirium Tremens(DT)s?: Yes Have you ever undergone Alcohol Rehabilitation Treatment (i.e, inpt ot outpatient treatment programs)?: Yes Have you ever Experienced Blackouts?: Yes Have you ever Combined Alcohol with other Downers within the last 90 days?: No Have you ever Combined Alcohol with any other Substance of Abuse during the last 90 days?: No Positive Blood Alcohol level on Presentation? [PCS.BAL]: Yes Evidence of Increased Autonomic Activity (i.e. HR>120, tremor, sweating, agitation, nausea)?: No Result: 7
--- NOTE | 2022-05-16 13:00 | RT.EKG_ITS ---
APPROVED REPORT Exam: Resting ECG Reason for Exam: QTC monitoring Patient Location: I HR:70 bpm ECG Measurements Heart Rate 70 AXIS MN 139 P 74 QRSd 98 QRS 16 QT 413 T 4 QTc 446 Conclusion Sinus rhythm...normal P axis, V-rate 50- 99 Excessive baseline artifact
[2022-05-16] MEDS: Acamprosate 333 MG TABCR 666 MG PO ×2 (14:54→20:06)
[2022-05-16] MEDS: QUEtiapine 100 MG TAB PO (20:07)
[2022-05-17] VITALS (17 sets, daily range): BP systolic 93–123; BP diastolic 52–76; PULSE 64–99; RESP 10–27; TEMP 35.4–37.7; O2SAT 92–97
[2022-05-17] MEDS: Acamprosate 333 MG TABCR 666 MG PO ×3 (08:29→20:11)
[2022-05-17] MEDS: Buprenorphine/Naloxone 8 mg/2 mg FILM 2 EACH SL (08:29)
[2022-05-17] MEDS: cloNIDine 0.1 MG TAB PO ×2 (08:30→20:11)
[2022-05-17] MEDS: Folic Acid 1 MG TAB PO (08:30)
[2022-05-17] MEDS: FLUoxetine 20 MG CAP 60 MG PO (08:30)
[2022-05-17] MEDS: Multivitamin TAB 1 TAB PO (08:30)
[2022-05-17] MEDS: Thiamine 100 MG TAB PO (08:31)
[2022-05-17] MEDS: OLANZapine 10 MG TAB PO (08:31)
[2022-05-17] MEDS: Ramipril 5 MG CAP PO (08:31)
[2022-05-17] MEDS: QUEtiapine 100 MG TAB PO ×2 (08:31→20:11)
--- NOTE | 2022-05-17 08:42 | PGE_ITS ---
Date of Service Date of service: 05/17/22 Time of Service: 08:42 Assessment and Plan Assessment and plan (1) Alcohol withdrawal: Status: Acute Assessment and plan: This point he does not seem to require any further phenobarbital. We will monitor him for today but if he is not showing further signs of alcohol withdrawal he could be discharged. Professional time spent interviewing and examining patient, discussion of goals of care with hospital team (care management, nursing and consulting professionals) was 20 minutes. (2) Anxiety: Status: Chronic Assessment and plan: Continue his quetiapine at 100 mg twice a day. Continue current dose of olanzapine 10 mg daily. Continue fluoxetine 60 mg daily. We will request telepsych assistance. Consider transition to a different SSRI. (3) Opioid dependence in remission: Status: Chronic Assessment and plan: Continue his buprenorphine/naloxone treatment (4) Depression with anxiety: Status: Acute Assessment and plan: Resume meds as outlined above. (5) ADD (attention deficit disorder): Assessment and plan: Vyvanse was resumed yesterday. Qualifiers: Hyperactivity presence: present Attention deficit-hyperactivity disorder type: predominantly hyperactive Qualified Code(s): F90.1 - Attention- deficit hyperactivity disorder, predominantly hyperactive type (6) Discharge planning issues: Status: Acute Assessment and plan: I will discuss with case management discharge planning as he is currently homeless. Subjective Subjective Interval history since last seen: Patient has done well with phenobarbital and preventing hallucinations or delirium tremens and his CIWA score 0. His cumulative dose of phenobarbital so far is 1650 mg which is above the soft stop at 25 mg/kg but below is hard stop of 30 mg/kg. Patient is complaining that his anxiety issues are not being addre ssed. This in spite of the fact that increased his quetiapine 100 mg twice daily. He remains on olanzapine 10 mg daily. He is also on fluoxetine 60 mg daily. I discussed with him previous medications been tried. He been on BuSpar before and he says it is no better than a sugar pill and refuses to take any BuSpar. I asked him about mood stabilizers he said all they did was make him crazy and he will not take any mood stabilizers although he could not tell me which ones he been on. I am requesting a telepsych consult to help with his management since he has both mental health issues including depression and anxiety as well as addiction problems including opioid abuse and alcohol abuse. We do not want a prescribe benzodiazepines because of his addictive behavior and potential for abuse. I did put him on Campral to help with his alcohol cravings. At this point I think patient no longer requires ICU management and can be moved to medical/surgical floor. I will discuss with case management his discharge disposition as he is currently homeless. He has PCP and mental health appointments but they are not until June. Exam Narrative Exam Narrative: Dangelo is alert and oriented person place time circumstance. Does show anxiety and agitation and at times uses swear words and describing his situation. He has no tremors no diaphoresis and his vital signs remained stable. Objective Last Vital Signs Temp 37.3 C 05/17/22 08:24 Pulse 84 05/17/22 08:24 Resp 16 05/17/22 08:24 BP 118/73 05/17/22 08:24 Pulse Ox 95 05/17/22 08:24 Laboratory Results - last 24 hr 05/16/22 07:30 Urine Opiates Screen Negative Urine Methadone Screen Negative Ur Barbiturates Screen Positive A Ur Tricyclics Screen Negative Ur Amphetamines Screen Positive A U Benzodiazepines Scrn Positive A Urine Cocaine Screen Negative Ur THC Screen Positive A Reviewed Pertinent PMH: Yes PAWSS Have you Been Recently Intoxicated or Drunk Within the Last 30 days?: Yes Have you Ever Experienced Previous Episodes of Alcohol Withdrawal?: Yes Have you ever Experienced Withdrawal Seizures?: Yes Have you ever Experienced Delirium Tremens(DT)s?: Yes Have you ever undergone Alcohol Rehabilitation Treatment (i.e, inpt ot outpatient treatment programs)?: Yes Have you ever Experienced Blackouts?: Yes Have you ever Combined Alcohol with other Downers within the last 90 days?: No Have you ever Combined Alcohol with any other Substance of Abuse during the last 90 days?: No Positive Blood Alcohol level on Presentation? [PCS.BAL]: Yes Evidence of Increased Autonomic Activity (i.e. HR>120, tremor, sweating, agitation, nausea)?: No Result: 7
--- NOTE | 2022-05-17 10:24 | NUR.NOTE ---
Patient is sleeping. Vital signs are stable.Nursing Note:
--- NOTE | 2022-05-17 10:43 | PHA.REVIEW ---
Pharmacy Admission Review - Admission Clinical Review (Last Reviewed 05/15/22 @ 13:53 by Gabo Logan MD) Discharge planning issues (Acute) Alcohol withdrawal (Acute) Depression with anxiety (Acute) No Known Allergies Allergy (Verified 05/15/22 07:23) Resuscitation Status Full Code Height 5 ft 8 in Weight 82.1 kg - Comments Comments/Follow Ups: phenobarb dosing for EtOH withdrawal: IBW = 68.4 kg. max dose: soft stop 20 mg/kg = 1368 mg, hard stop 30 mg/kg = 2052 mg. has received 1690 mg thus far (~25 mg/kg) - Renal Dosing Renal Dosing: BUN 15 mg/dL (7-18) 05/16/22 06:15 Creatinine 0.7 mg/dL (0.70-1.30) 05/16/22 06:15 Medications needing adjustments: N/A (crcl = 117) - Anticoagulation Anticoagulation: Hgb 13.8 g/dL (13.5-17.5) 05/15/22 10:19 Hct 40.9 % (40.0-50.0) 05/15/22 10:19 Plt Count 197 10^3/uL (130-400) 05/15/22 10:19 Creatinine 0.7 mg/dL (0.70-1.30) 05/16/22 06:15 DVT Prophylaxis: N/A Therapeutic Anticoagulation: N/A - Opiate Usage Evaluate Pain Scale/Pains Meds: N/A (pt is on suboxone 2 x 8/2 films daily (confirmed with [facility] 05/16)) - Relevant Labs Sodium 141 mmol/L (136-145) 05/16/22 06:15 Potassium 4.1 mmol/L (3.5-5.1) 05/16/22 06:15 Chloride 106 mmol/L (98-107) 05/16/22 06:15 Phosphorus 4.2 mg/dL (2.6-4.7) 05/16/22 06:15 Magnesium 2.1 mg/dL (1.8-2.4) 05/16/22 06:15 Electrolytes, C-Reactive P, ESR: Reviewed - DM Control DM Control: Glucose 95 mg/dL (74-106) 05/16/22 06:15 Insulin Dosing: N/A - BP Control BP Control: Blood Pressure 118/73 Blood Pressure 114/76 Blood Pressure 101/65 Blood Pressure 98/57 Blood Pressure 93/56 If elevated: N/A - Qtc Review If Elevated: Reviewed (borderline, QTc = 446 (has been prolonged in the past)) - IV to PO Switch IV Medications: N/A - Home Meds Home Med List reviewed: Reviewed (home meds resumed 05/16/22. does have chlordiazepoxide on his med list which has not been ordered (on phenobarb protocol) - appears last fill was only #7 caps on 04/28/22) - Current meds Current Medication Order Review: Reviewed (seroquel home dose increased from 50 mg BID to 100 mg BID, started on acamprosate 666 mg TID, started on ramipril)
--- NOTE | 2022-05-17 10:49 | CMPROGNOTE_ITS ---
- If Service Date Differs Date of service: 05/17/22 Time of Service: 10:49 Care Management Progress Note S/O: Dangelo was lying in bed when CM met with him. He reported that he is feeling a little better today, as he feels he is through the worst of his alcohol withdrawal. He is currently seeking help with his alcohol/substance use as well as his depression/anxiety. He recently met with the manager of disaster recovery and the crisis screener from [facility], who are recommending inpatient psychiatric treatment for co occurring alcohol/substance us and psychiatric diagnoses. Referrals have been sent to [facility], and [facility] for consideration. Dangelo has expressed that due to PTSD, he is not comfortable traveling with a Digital Media Manager. CM has advocated for EMS transport. CM will continue to follow. A: Dangelo is a 41 year old male admitted to [facility] on 05/15/22 for alcohol withdrawal. P: Dangelo is being closely monitored in the ICU for acute alcohol withdrawal. Once he is medically cleared, he will be discharged back to the community. CM will connect Dangelo with the manager of disaster recovery, who know him well, and can assist with him getting into rehab for substance use, if he is agreeable. CM will continue to support Dangelo and assess for ongoing discharge concerns.
--- NOTE | 2022-05-17 12:09 | NUR.NOTE ---
Sobriety counselor meets with patient followed by case management. Patient expresses interest in going to [facility].Nursing Note:
[2022-05-17] MEDS: busPIRone 5 MG TAB 10 MG PO (20:11)
[2022-05-18 07:25] VITALS: BP 122/80; PULSE 77; RESP 14; TEMP 36.1; O2SAT 99
[2022-05-18] MEDS: cloNIDine 0.1 MG TAB PO ×2 (07:47→20:23)
[2022-05-18] MEDS: OLANZapine 10 MG TAB PO (07:47)
[2022-05-18] MEDS: Thiamine 100 MG TAB PO (07:48)
[2022-05-18] MEDS: QUEtiapine 100 MG TAB PO ×2 (07:48→20:22)
[2022-05-18] MEDS: Multivitamin TAB 1 TAB PO (07:48)
[2022-05-18] MEDS: busPIRone 5 MG TAB 10 MG PO ×3 (07:48→20:21)
[2022-05-18] MEDS: Folic Acid 1 MG TAB PO (07:48)
[2022-05-18] MEDS: FLUoxetine 20 MG CAP 60 MG PO (07:48)
[2022-05-18] MEDS: Buprenorphine/Naloxone 8 mg/2 mg FILM 2 EACH SL (07:49)
[2022-05-18] MEDS: Ramipril 5 MG CAP PO (08:06)
[2022-05-18] MEDS: Acamprosate 333 MG TABCR 666 MG PO ×3 (08:06→20:23)
--- NOTE | 2022-05-18 16:18 | W.PM.PROGNOT ---
Date of Service Date of service: 05/18/22 Time of Service: 16:18 Assessment and Plan Assessment and plan (1) Facial rash: Status: Acute Assessment and plan: I am suspecting zoster. I will prescribe Valacyclovier 1000 mg po tid x 7d. also give him topical lidocaine for the burning. (2) Alcohol withdrawal: Status: Resolved Assessment and plan: CIWA scores have been zero to 1. At this point I think he is past the point of risks of D.T. from withdrawal. cont. his MVS, and thiamine and folic acid. No further phenobarbital is indicated. (3) Anxiety: Status: Chronic Assessment and plan: Continue his quetiapine at 100 mg twice a day. Continue current dose of olanzapine 10 mg daily. Continue fluoxetine 60 mg daily. prn vistaril ordered. has place referrals to area psychiatric facilities to try to get him into an inpatient program to treat his depression and anxiety disorder. (4) Opioid dependence in remission: Status: Chronic Assessment and plan: Continue his buprenorphine/naloxone treatment (5) Depression with anxiety: Status: Acute Assessment and plan: Resume meds as outlined above. (6) ADD (attention deficit disorder): Assessment and plan: Vyvanse has been resumed. Qualifiers: Hyperactivity presence: present Attention deficit-hyperactivity disorder type: predominantly hyperactive Qualified Code(s): F90.1 - Attention-deficit hyperactivity disorder, predominantly hyperactive type (7) Discharge planning issues: Status: Acute Assessment and plan: Awaiting results of referrals to [facility] psychiatric facilities. Subjective Subjective Interval history since last seen: Dangelo understands that I am not going to prescribe benzodiazepines for his anxiety disorder d/t his dual addiction diagnoses (alcohol and opioid abuse). However, he also understands that I would like him to give Buspar a trial. [facility] and other [facility] inpatient psychiatric facilities have been consulted for inpatient treatment of his mental health issues which include generalized anxiety and depression w/ suicidal ideation. I told him that I would prescribe Vistaril prn for his anxiety but want him to take the Buspar. His only other concern today is a puritic burning rash over right face behind the right ear and over the preauricular area extending to his right nasolabial fold. He has hx of varicella infection as a child but no zoster vaccine. Exam Narrative Exam Narrative: HEENT: red, slightly scaley puritic rash over right auricle and over pre and post auricular skin and involving right nasolabial fold; no purulent discharge and no papules Psychiatric/neuro exam: he is appropriate, not agitated, he is calm and cooperative; no tremors. Objective Last Vital Signs Temp 36.1 C L 05/18/22 07:25 Pulse 77 05/18/22 07:25 Resp 14 05/18/22 07:25 BP 122/80 05/18/22 07:25 Pulse Ox 99 05/18/22 07:25 PAWSS Have you Been Recently Intoxicated or Drunk Within the Last 30 days?: Yes Have you Ever Experienced Previous Episodes of Alcohol Withdrawal?: Yes Have you ever Experienced Withdrawal Seizures?: Yes Have you ever Experienced Delirium Tremens(DT)s?: Yes Have you ever undergone Alcohol Rehabilitation Treatment (i.e, inpt ot outpatient treatment programs)?: Yes Have you ever Experienced Blackouts?: Yes Have you ever Combined Alcohol with other Downers within the last 90 days?: No Have you ever Combined Alcohol with any other Substance of Abuse during the last 90 days?: No Positive Blood Alcohol level on Presentation? [PCS.BAL]: Yes Evidence of Increased Autonomic Activity (i.e. HR>120, tremor, sweating, agitation, nausea)?: No Result: 7
--- NOTE | 2022-05-18 19:31 | NUR.NOTE ---
Nursing Note: Spoke to [facility] this afternoon. No bed available until friday. Updated them , provided all requested information. Livestock Auctioneer to fax latest ecg. updated
[2022-05-18 20:06] VITALS: BP 132/80; PULSE 62; RESP 16; TEMP 36.4; O2SAT 97
[2022-05-18] MEDS: valACYclovir 1,000 MG TAB 1000 MG PO (20:22)
[2022-05-18] MEDS: hydrOXYzine PAMOATE 25 MG CAP PO (20:22)
[2022-05-19 03:30] VITALS: BP 125/87; PULSE 82; RESP 15; TEMP 36.4; O2SAT 96
[2022-05-19] MEDS: Acamprosate 333 MG TABCR 666 MG PO ×3 (07:40→20:08)
[2022-05-19] MEDS: Buprenorphine/Naloxone 8 mg/2 mg FILM 2 EACH SL (07:40)
[2022-05-19] MEDS: OLANZapine 10 MG TAB PO (07:40)
[2022-05-19] MEDS: Ramipril 5 MG CAP PO (07:41)
[2022-05-19] MEDS: busPIRone 5 MG TAB 10 MG PO ×3 (07:41→20:08)
[2022-05-19] MEDS: Thiamine 100 MG TAB PO (07:41)
[2022-05-19] MEDS: FLUoxetine 20 MG CAP 60 MG PO (07:41)
[2022-05-19] MEDS: QUEtiapine 100 MG TAB PO ×2 (07:41→20:09)
[2022-05-19] MEDS: Multivitamin TAB 1 TAB PO (07:41)
[2022-05-19] MEDS: cloNIDine 0.1 MG TAB PO ×2 (07:42→20:08)
[2022-05-19] MEDS: valACYclovir 1,000 MG TAB 1000 MG PO ×3 (07:42→20:08)
[2022-05-19] MEDS: Folic Acid 1 MG TAB PO (07:42)
[2022-05-19 07:45] VITALS: BP 128/76; PULSE 64; RESP 18; TEMP 36.5; O2SAT 99
[2022-05-19] MEDS: hydrOXYzine PAMOATE 25 MG CAP PO ×3 (08:27→20:08)
--- NOTE | 2022-05-19 13:14 | W.PM.PROGNOT ---
Date of Service Date of service: 05/19/22 Time of Service: 13:15 Assessment and Plan Assessment and plan (1) Facial rash: Status: Acute Assessment and plan: I am suspecting zoster. I will prescribe Valacyclovier 1000 mg po tid x 7d. also give him topical lidocaine for the burning. Professional time spent interviewing and examining patient, discussion of goals of care with hospital team (care management, nursing and consulting professionals) was 10 minutes. (2) Alcohol withdrawal: Status: Resolved Assessment and plan: CIWA scores have been zero to 1. At this point I think he is past the point of risks of D.T. from withdrawal. cont. his MVS, and thiamine and folic acid. No further phenobarbital is indicated. (3) Anxiety: Status: Chronic Assessment and plan: Continue his quetiapine at 100 mg twice a day. Continue current dose of olanzapine 10 mg daily. Continue fluoxetine 60 mg daily. prn vistaril ordered. has place referrals to area psychiatric facilities to try to get him into an inpatient program to treat his depression and anxiety disorder. (4) Opioid dependence in remission: Status: Chronic Assessment and plan: Continue his buprenorphine/naloxone treatment (5) Depression with anxiety: Status: Acute Assessment and plan: Resume meds as outlined above. (6) ADD (attention deficit disorder): Assessment and plan: Vyvanse has been resumed. Qualifiers: Hyperactivity presence: present Attention deficit-hyperactivity disorder type: predominantly hyperactive Qualified Code(s): F90.1 - Attention-deficit hyperactivity disorder, predominantly hyperactive type (7) Discharge planning issues: Status: Acute Assessment and plan: Awaiting results of referrals to area psychiatric facilities. Subjective Subjective Interval history since last seen: No new concerns. Right facial rash no longer tingling or burning. He has been applying a lot of cream to this. Exam Narrative Exam Narrative: Rash over the right posterior auricular area as well as over the preauricular area of his nondenominational and over the right side of bridge of his nose appears less prominent. There are some flaking of the skin this may be more of a eczematous process however the fact that it was burning in nature initially raises concern for zoster. From a psychiatric standpoint is very cooperative not agitated not showing any signs of withdrawal and his anxiety level does seem to be improved today. He is looking forward to going to a psychiatric facility where he can get additional help with his medications. Objective Last Vital Signs Temp 36.5 C 05/19/22 07:45 Pulse 64 05/19/22 07:45 Resp 18 05/19/22 07:45 BP 128/76 05/19/22 07:45 Pulse Ox 99 05/19/22 07:45 PAWSS Have you Been Recently Intoxicated or Drunk Within the Last 30 days?: Yes Have you Ever Experienced Previous Episodes of Alcohol Withdrawal?: Yes Have you ever Experienced Withdrawal Seizures?: Yes Have you ever Experienced Delirium Tremens(DT)s?: Yes Have you ever undergone Alcohol Rehabilitation Treatment (i.e, inpt ot outpatient treatment programs)?: Yes Have you ever Experienced Blackouts?: Yes Have you ever Combined Alcohol with other Downers within the last 90 days?: No Have you ever Combined Alcohol with any other Substance of Abuse during the last 90 days?: No Positive Blood Alcohol level on Presentation? [PCS.BAL]: Yes Evidence of Increased Autonomic Activity (i.e. HR>120, tremor, sweating, agitation, nausea)?: No Result: 7
--- NOTE | 2022-05-19 15:11 | MHPN_ITS ---
Date of service: 05/19/22 Time of Service: 14:25 Mental Health Progress Note Progress Note Progress Note: Presenting Issue: Client is awaiting voluntary treatment. Precipitating Factors Disposition - Client did not want to speak to mental health. * Behavior: *Eye Contact: *Mood: *Affect: *Appetite: *Sleep(troubel falling/staying asleep): Plan(please elaborate and include that physician is consulted with plan and/or placement): Client stated he was not in the headspace to talk to mental health. Client identified he is not suicidal. Clinician's Name , Title, and Signature Vania Araujo, Color Blender, [facility] Make sure that you are photocopying and submitting this to [facility] records Dept. to be scanned into chart.
[2022-05-19 15:34] VITALS: BP 137/78; PULSE 68; RESP 19; TEMP 36.8; O2SAT 98
[2022-05-19] MEDS: Polyethylene Glycol 3350 17 GM PACKET PO (17:30)
[2022-05-19 23:10] VITALS: BP 136/74; PULSE 69; RESP 18; TEMP 36.3; O2SAT 98
[2022-05-20] MEDS: Buprenorphine/Naloxone 8 mg/2 mg FILM 2 EACH SL (06:01)
[2022-05-20] MEDS: Ramipril 5 MG CAP PO (07:48)
[2022-05-20] MEDS: Folic Acid 1 MG TAB PO (07:48)
[2022-05-20] MEDS: Thiamine 100 MG TAB PO (07:48)
[2022-05-20] MEDS: cloNIDine 0.1 MG TAB PO (07:48)
[2022-05-20] MEDS: QUEtiapine 100 MG TAB PO (07:48)
[2022-05-20] MEDS: OLANZapine 10 MG TAB PO (07:48)
[2022-05-20] MEDS: valACYclovir 1,000 MG TAB 1000 MG PO (07:49)
[2022-05-20] MEDS: Multivitamin TAB 1 TAB PO (07:49)
[2022-05-20] MEDS: FLUoxetine 20 MG CAP 60 MG PO (07:49)
[2022-05-20] MEDS: busPIRone 5 MG TAB 10 MG PO (07:49)
[2022-05-20] MEDS: Acamprosate 333 MG TABCR 666 MG PO (07:49)
[2022-05-20 08:20] VITALS: BP 133/88; PULSE 69; RESP 18; TEMP 36.3; O2SAT 95
--- NOTE | 2022-05-20 12:47 | W.PM.DS.N ---
Date of service: 05/20/22 Time of Service: 12:48 DS: Diagnosis Discharge Diagnosis (1) Facial rash: Status: Acute (2) Alcohol withdrawal: Status: Resolved (3) Anxiety: Status: Chronic (4) Opioid dependence in remission: Status: Chronic (5) Depression with anxiety: Status: Acute (6) ADD (attention deficit disorder): (7) Discharge planning issues: Status: Acute Discharge Plan Disposition Patient Disposition: [facility] Condition: Fair Discharge Details Reason For Visit: alcohol withdrawal, anxiety Admit Date/Time: 05/15/22 09:29 Admit Provider: Gabo Logan Attending Provider: Gabo Logan Primary Care Provider: Sophia Kelsey Hospital Course Hospital Course: 41-year-old male with a history of chronic alcoholism, opioid dependence,ADD alcoholic cardiomyopathy, hypertension, hypergonadism, methadone dependence, depression who was just hospitalized at [facility] from 05/11 through 05/13/2022 for acute alcohol withdrawal.? He was refusing treatment with phenobarbital and was trialed on benzodiazepines including scheduled dose of Librium and symptomatic triggered lorazepam.? He was improving but then started requesting more frequent Ativan despite not having objective signs of worsening withdrawal.? Lorazepam was discontinued and the patient left AGAINST MEDICAL ADVICE.? He states that he went home and started drinking again he does not remember how much alcohol he had last night he remembers falling asleep watching the [employer] baseball game.? On the morning of admission he had about half of the 16 ounce hard cider and he had a full 16 ounce beer.? He denies use of any other illicit drugs such as amphetamines cocaine or heroin but does admit to occasional use of marijuana. He was placed on a phenobarbitol alcohol withdrawal protocol and underwent an uneventful withdrawal. His anxiety remained high and he frequently asked to be given a benzodiazepin. Buspar was initiated at 10mg TID, then increased to 20mg TID. His Quetiapine was increased to 100mg BID. He continued on his home buprenorphine/naloxone dosing. He remained a voluntary admission and continued to desire inpatient treatment. Incidentally he was found to have a facial rash and started on Valtrex; however this was found to be seborrhea and the Valtrex was stopped and topical steroid initiated. D/C to [facility] Home Meds and New Rx's Prescriptions: New buspirone 5 mg Tablet 20 mg PO TID Qty: 0 0RF polyethylene glycol 3350 17 gram Powder In Packet 17 g PO DAILY PRN PRN (Reason: Constipation) Qty: 0 0RF Nicotrol 10 mg Cartridge 30 cartridge inhalation Q2H PRN PRNQty: 0 0RF folic acid 1 mg Tablet 1 mg PO QAM Qty: 0 0RF triamcinolone acetonide 0.1 % Lotion 0 ml topical TID Qty: 0 0RF ramipril 5 mg Capsule 5 mg PO DAILY Qty: 0 0RF hydroxyzine pamoate [Vistaril] 25 mg Capsule 25 mg PO TID PRN PRN (Reason: Anxiety) Qty: 0 0RF acamprosate 333 mg Tablet,Delayed Release (Dr/Ec) 666 mg PO TID Qty: 0 0RF thiamine mononitrate (vit B1) [Vitamin B-1 (mononitrate)] 100 mg Tablet 100 mg PO QAM Qty: 0 0RF Continued fluoxetine 60 mg tablet 60 mg PO DAILY Qty: 30 1RF olanzapine 10 mg tablet 10 mg PO DAILY Qty: 30 0RF chlordiazepoxide HCl 25 mg capsule 25 mg PO BID PRN (Reason: alcohol withdrawal) Qty: 7 0RF Rx Instructions: Take twice daily as needed for tremors, and withdrawal symptoms. Do not take with alcohol quetiapine 50 mg tablet 50 mg PO BID Qty: 60 1RF lisdexamfetamine 50 mg capsule 50 mg PO QAM MDD 60 Qty: 28 0RF Label Comments: Sometimes forget to take the medication. Last taken two days ago according to pt. clonidine HCl 0.1 mg tablet 1 tab PO BID Label Comments: TAKE ONE TABLET BY MOUTH TWICE A DAY NEEDED buprenorphine-naloxone 8-2 mg Film 2 film BUCCAL DAILY Label Comments: confirmed with ISELA 05/16/22 Rx Instructions: place 1 film on inside of (each) cheek Discharge Instructions Stand Alone Forms: Nursing Discharge Form Activity:: Activity as Tolerated Diet:: As Tolerated DS: Summary Time Spent with Patient providing and/or coordinating discharge services: Greater than 30 minutes Status at Discharge Functional status at discharge: independent ambulation Overall status at discharge: patient is not back to baseline Mental Status: mental status grossly normal Speech and Movement: speech and movement normal and speech clear Mood: anxious mood Affect: anxious affect Exam Narrative Exam Narrative: Sitting on edge of bed. Const General: cooperative and no acute distress Nutritional Appearance: average body habitus Orientation: alert and oriented x3 Eyes General: appearance normal, both eyes and all related structures Sclera: sclerae normal Resp Effort & Inspection: normal respiratory effort Auscultation: clear to auscultation bilaterally Cardio Rate: regular rate Rhythm: regular rhythm Skin General skin exam: other (Waxy flaking of bearded areas and scalp. ) Neuro General: no focal motor deficits Cranial Nerves: facial strength normal Cognition: normal cognition Extrem General: no pedal edema and no calf tenderness Psych Appearance: grossly normal Mental Status: mental status grossly normal Speech and Movement: speech and movement normal and speech clear Mood: anxious mood Affect: anxious affect DS: Data Vitals/I&O Vitals and I&O: Vital Signs Temperature 36.3 C L 05/20/22 08:20 Temperature Source Tympanic 05/20/22 08:20 Pulse 69 05/20/22 08:20 Pulse Rhythm Regular 05/20/22 11:54 Pulse 83 05/17/22 10:00 Respiratory Rate 18 05/20/22 08:20 Respiratory Effort Non-Labored 05/20/22 11:54 Respiratory Depth Normal 05/20/22 11:54 Respiratory Pattern Normal 05/20/22 11:54 Blood Pressure 133/88 05/20/22 08:20 Blood Pressure Mean 88 05/17/22 09:00 Blood Pressure Position Supine 05/17/22 09:00 Pulse Oximetry 95 05/20/22 08:20 Oxygen Delivery Method Room Air 05/20/22 08:20 Oxygen Flow Rate 0 05/20/22 08:20 Pain Level 0 05/19/22 23:10 Comment 05/17/22 22:29 Intake & Output 05/19/22 05/20/22 05/20/22 23:59 11:59 23:59 Intake Total 720 / 720 Balance 720 / 720 Weight 83.3 kg Intake: Oral 720 / 720 Other: Urine Appearance Clear Clear Voiding Methods Toilet PFSH All Active Problems Facial rash (Acute) Discharge planning issues (Acute) Hallucination, visual (Acute) Anxiety (Chronic) Opioid dependence in remission (Chronic) Polysubstance abuse (Chronic) Alcohol withdrawal (Acute) Alcohol abuse (Chronic) Prolonged Q-T interval on ECG (Acute) Depression with anxiety (Acute) Acute opioid withdrawal (Acute) Diarrhea (Acute) Tobacco abuse (Acute 11/19/17) 1/2 ppd HFrEF (heart failure with reduced ejection fraction) (Acute) Anxiety (Chronic 09/05/17) Medical History ADD (attention deficit disorder) Cardiomyopathy Closed right ankle fracture (~09/2019) Depression with suicidal ideation Hospitalized at [facility] psych 02/15-02/26/22. Erectile dysfunction (10/03/17) Gynecomastia, male (03/11/18) secondary to methadone Hyperglycemia (09/05/17) Hyperprolactinemia (04/15/18) Hypertension Hypogonadism, male (03/24/18) Pending appt with Dr. Charles at [facility] in [place] Methadone dependence (04/01/18) [facility] in [facility] Hx intranasal and oral use of opioids. Meets with therapist twice monthly; has had take-home in the past. QT prolongation Surgical History S/P hernia repair Family History Mother Diabetes Cancer thyroid cancer Father Diabetes Essential hypertension Paternal Grandfather No problems noted. Maternal Grandfather Stroke Paternal Uncle Cancer stomach cancer Other Family history of diabetes mellitus (DM) Social History Smoking/Tobacco Use Status: Current every day Tobacco Type: cigarettes Quit status: considering quitting Counseling given: provider counseling Smoking risk assessment performed?: Yes Alcohol Intake: current Alcohol Intake frequency: 3 or more drinks per day Alcohol type: hard liquor Counseling given: Yes Drug use: Occasionally Substance use type: marijuana Counseling provided: treatment program Details: Patient states he had a fifth of vodka about an hour before his ED arrival Household members: family Housing: other Details: living with his father Number of Children: 1 Education Level: high school 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
[2022-05-20] MEDS: hydrOXYzine PAMOATE 25 MG CAP PO (12:58)
--- NOTE | 2022-05-20 18:01 | CMDISCH_ITS ---
- If Service Date Differs Date of service: 05/20/22 Time of Service: 18:02 LACE Index Scoring Tool - Questions: Length of Stay (in days): 4 - 6 Acuity (Admit via E.D.?): Yes Comorbidities: Congestive Heart Failure E.D. Visits: 16 - Answers: Total Score: 13 Risk of Readmission: High Risk Care Management Discharge Reason for Hospitalization: Alcohol withdrawal Discharge Plan: Dangelo was transferred to [facility] today via [place] EMS. He will follow up with [facility], his PCP and discharge plan of care. He was agreeable to going to treatment and reports feeling hopeful that he will get the help that he has been advocating for. Patient/Family Education Needs: Review discharge instructions and expectations for treatment at outside facility, discussion of self care needs including ask me three. Services Needed at Discharge: Psychiatric Facility ([facility]), Transportation ([facility]) - Disposition Disposition: [place] Transport via of: EMS
== END 2022-05-20 13:15 | disposition short-term general hospital (02) | DRG 897 ==
LOC: ER 09:33 → ICU 11:36 → MS 05-17 21:07 → ICU 05-17 21:12 → MS 05-17 22:11
PROVIDERS: Admitting Provider Internal Medicine; Emergency Provider Student in an Organized Health Care Education/Training Program; PCP Family Medicine; Visit Provider Internal Medicine
DX: F10.231 Alcohol dependence with withdrawal delirium (principal); I42.6 Alcoholic cardiomyopathy; F11.20 Opioid dependence, uncomplicated; I50.20 Unspecified systolic (congestive) heart failure; F41.8 Other specified anxiety disorders; F90.1 Attention-deficit hyperactivity disorder, predominantly hyperactive type; F12.90 Cannabis use, unspecified, uncomplicated; F19.10 Other psychoactive substance abuse, uncomplicated; R94.31 Abnormal electrocardiogram [ECG] [EKG]; E87.6 Hypokalemia; F17.210 Nicotine dependence, cigarettes, uncomplicated; F41.9 Anxiety disorder, unspecified; I11.0 Hypertensive heart disease with heart failure; R45.1 Restlessness and agitation; L21.8 Other seborrheic dermatitis
CPT/HCPCS: 36415; 80048; 80053; 80076; 80307; 87635; 96365; 99285; 80320; 83735; 84100; 84443; 85025; 93005; 93010; 99231; 99232; 99239; 99291; J2560; J3490

== ENCOUNTER 2022-07-19 07:43 | Emergency (ER) | payer MEDICAID, SELFPAY ==
[2022-07-19 07:54] VITALS: BP 162/96; PULSE 125; RESP 20; TEMP 36.5; O2SAT 96
--- NOTE | 2022-07-19 08:33 | W.ED.GENAD ---
Discharge Plan Disposition Patient Disposition: AGAINST MEDICAL ADVICE Condition: Stable Discharge Details Chief Complaint: Abd Prob Clinical Impression: Nausea Primary Care Provider: Sophia Kelsey ED Provider: Eugene Handy Home Meds and New Rx's Prescriptions: No Action olanzapine 10 mg tablet 10 mg PO DAILY Qty: 30 0RF buspirone 10 mg tablet 10 mg PO TID clonidine HCl 0.2 mg tablet 0.2 mg PO Q4H PRN gabapentin 600 mg tablet 600 mg PO TID ketoconazole 2 % shampoo 1 applic topical ONCE lisinopril 20 mg tablet 20 mg PO DAILY quetiapine 50 mg tablet 100 mg PO BID triamcinolone acetonide 0.025 % cream 1 applic topical BID lisdexamfetamine 50 mg capsule 50 mg PO QAM MDD 60 Qty: 28 0RF Label Comments: Sometimes forget to take the medication. Last taken two days ago according to pt. buprenorphine-naloxone 8-2 mg Film 2 film BUCCAL DAILY Label Comments: confirmed with ISELA 05/16/22 Rx Instructions: place 1 film on inside of (each) cheek Discharge Instructions Instructions: Acute Nausea and Vomiting (ED) Medical Decision Making 41-year-old male history of polysubstance abuse presents endorsing epigastric abdominal discomfort over the past several days, nausea vomiting; relatively nontoxic however tachycardic on arrival with psychomotor agitation, no evidence of tongue fasciculation or hand tremor. Consider dehydration versus electrolyte abnormality versus early alcohol withdrawal versus pancreatitis versus gastritis. Screening labs fluids antiemetics GI cocktail close reassessment 9: 42 patient resting comfortably no acute distress. No vomiting in department. Patient endorsed that he does not want to wait in the emergency department and would like papers to leave. Before he could be counseled patient walked out of the emergency department after removing his own IV. HPI General Date/Time Provider Initiated Documentation: 07/19/22 08:00. HPI Narrative: 41-year-old male history of polysubstance abuse presents endorsing epigastric abdominal pain. Endorses daily drinking. Has had nausea and vomiting over the past several days. Endorses a history of pancreatitis in the past. Related Data Home Medications Medication Instructions Recorded Confirmed olanzapine 10 mg tablet 10 mg PO DAILY #30 tabs 05/01/22 05/15/22 lisdexamfetamine 50 mg capsule 50 mg PO QAM #28 caps 05/10/22 05/15/22 buprenorphine 8 mg-naloxone 2 mg 2 film buccal DAILY 05/16/22 05/16/22 sublingual film buspirone 10 mg tablet 10 mg PO TID 06/05/22 clonidine HCl 0.2 mg tablet 0.2 mg PO Q4H PRN 06/05/22 gabapentin 600 mg tablet 600 mg PO TID 06/05/22 ketoconazole 2 % shampoo 1 applic topical ONCE 06/05/22 lisinopril 20 mg tablet 20 mg PO DAILY 06/05/22 quetiapine 50 mg tablet 100 mg PO BID 06/05/22 triamcinolone acetonide 0.025 % 1 applic topical BID 06/05/22 topical cream Previous Rx's Medication Instructions Recorded olanzapine 10 mg tablet 10 mg PO DAILY #30 tabs 05/01/22 lisdexamfetamine 50 mg capsule 50 mg PO QAM #28 caps 05/10/22 Allergies Allergy/AdvReac Type Severity Reaction Status Date / Time No Known Allergies Allergy Verified 05/15/22 07:23 General Stated Complaint: Abd Prob PACO: 3 Review of Systems Narrative: Review of Systems Constitutional: negative Eyes: negative ENT: negative Cardiovascular: negative Respiratory: negative Gastrointestinal: Abdominal pain nausea vomiting : negative Musculoskeletal: negative Skin: negative Neurologic: negative Psych: negative PFSH All Active Problems (Updated 07/19/22 @ 09:43 by Eugene Handy MD) Nausea (Acute) Anxiety (Chronic) Opioid dependence in remission (Chronic) Polysubstance abuse (Chronic) Alcohol withdrawal (Acute) Alcohol abuse (Chronic) Depression with anxiety (Acute) Acute opioid withdrawal (Acute) Diarrhea (Acute) Tobacco abuse (Acute 11/19/17) 1/2 ppd HFrEF (heart failure with reduced ejection fraction) (Acute) Anxiety (Chronic 09/05/17) Medical History ADD (attention deficit disorder) Cardiomyopathy Closed right ankle fracture (~09/2019) Depression with suicidal ideation Hospitalized at [facility] psych 02/15-02/26/22. Erectile dysfunction (10/03/17) Gynecomastia, male (03/11/18) secondary to methadone Hyperglycemia (09/05/17) Hyperprolactinemia (04/15/18) Hypertension Hypogonadism, male (03/24/18) Pending appt with Dr. Charles at [facility] in [place] Methadone dependence (04/01/18) [facility] in [facility] Hx intranasal and oral use of opioids. Meets with therapist twice monthly; has had take-home in the past. QT prolongation Surgical History S/P hernia repair Family History Mother Diabetes Cancer thyroid cancer Father Diabetes Essential hypertension Paternal Grandfather No problems noted. Maternal Grandfather Stroke Paternal Uncle Cancer stomach cancer Other Family history of diabetes mellitus (DM) Social History Smoking/Tobacco Use Status: Current every day Tobacco Type: cigarettes Quit status: considering quitting Counseling given: provider counseling Smoking risk assessment performed?: Yes Alcohol Intake: current Alcohol Intake frequency: 3 or more drinks per day Alcohol type: hard liquor Counseling given: Yes Drug use: Occasionally Substance use type: marijuana Counseling provided: treatment program Household members: family Housing: other Details: living with his father Number of Children: 1 Education Level: high school 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, 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 Exam Narrative Exam Narrative: Physical Examination General: alert, awake, cooperative, resting comfortably, no acute distress HEENT: normocephalic, atraumatic; PERRL, EOM intact, conjunctiva normal; no nasal discharge; moist mucous membranes, oral and pharyngeal mucosa normal, tolerating secretions Neck: supple, trachea midline; full ROM Chest: normal to inspection Respiratory: normal respiratory effort, speaking in full sentences, clear to auscultation, no wheezing, rales or rhonchi Cardiac: Tachycardia, regular rhythm, S1S2 intact, no murmurs rubs or gallops GI: abdomen soft, non-tender, non-distended; no palpable mass or hepatosplenomegaly Skin: no lesions, rashes or trauma appreciated Neuro: AAOx3, normal speech, moving all extremities Psych: Psychomotor agitation Course Vital Signs Vital signs: Vital Signs Temperature 36.5 C 07/19/22 07:54 Pulse 125 H 07/19/22 07:54 Respiratory Rate 20 07/19/22 07:54 Blood Pressure 162/96 H 07/19/22 07:54 Pulse Oximetry 96 07/19/22 07:54 Temperature 36.5 C 07/19/22 07:54 Temperature Source Temporal Artery Scan 07/19/22 07:54 Pulse 125 H 07/19/22 07:54 Respiratory Rate 20 07/19/22 07:54 Blood Pressure 162/96 H 07/19/22 07:54 Blood Pressure Position Sitting 07/19/22 07:54 Pulse Oximetry 96 07/19/22 07:54 Oxygen Delivery Method Room Air 07/19/22 07:54 Oxygen Flow Rate 0 07/19/22 07:54 Pain Level 6 07/19/22 07:54 PAWSS Have you Been Recently Intoxicated or Drunk Within the Last 30 days?: Yes Have you Ever Experienced Previous Episodes of Alcohol Withdrawal?: Yes Have you ever Experienced Withdrawal Seizures?: No Have you ever Experienced Delirium Tremens(DT)s?: Yes Have you ever undergone Alcohol Rehabilitation Treatment (i.e, inpt ot outpatient treatment programs)?: No Have you ever Experienced Blackouts?: No Have you ever Combined Alcohol with other Downers within the last 90 days?: Yes Have you ever Combined Alcohol with any other Substance of Abuse during the last 90 days?: No Positive Blood Alcohol level on Presentation? [PCS.BAL]: No Evidence of Increased Autonomic Activity (i.e. HR>120, tremor, sweating, agitation, nausea)?: Yes Result: 4
[2022-07-19 09:03] LABS: Abs Immature Grans 0.01 10^3/uL (0.0-0.06); Absolute Basophil Count 0.04 10^3/uL (0.0-0.2); Absolute Eosinophil Count 0.03 10^3/uL (0.0-0.7); Absolute Lymphocyte Count 2.24 10^3/uL (1.2-3.4); Absolute Monocyte Count 0.53 10^3/uL (0.1-0.8); Absolute Neutrophil Count 3.81 10^3/uL (1.2-6.7); Basophils % 0.6; Eosinophils % 0.5; HCT 43.5 % (40.0-50.0); HGB 15.3 g/dL (13.5-17.5); Immature Grans % 0.2; Lymphocytes % 33.6; MCHC 35.2 % (32.0-36.0); MCV 94 fL (80-95); MPV 8.4 fL (8.0-11.0); Neutrophils % 57.1; Platelet Count 276 10^3/uL (130-400); RBC 4.63 10^6/uL (4.36-5.78); RDW 13.8 % (11.8-14.1); RDW-SD 46.8 fL; WBC 6.66 10^3/uL (4.4-10.8)
[2022-07-19] MEDS: Ondansetron 4 MG/2 ML VIAL IVP (09:15)
[2022-07-19] MEDS: Normal Saline 1,000 ML 1000 ML IV (09:15)
[2022-07-19] MEDS: FAMOTIDINE 20 MG in Normal Saline 100 ML 400 MG IVPB (09:15)
[2022-07-19] MEDS: Lidocaine 2% Viscous 15 ML CUP PO (09:15)
[2022-07-19] MEDS: Mylanta Suspension 30 ML CUP PO (09:15)
[2022-07-19 09:29] LABS: ALT 36 U/L (16-63); AST 38 U/L (15-37); Albumin 4.1 g/dL (3.4-5.0); Alkaline Phosphatase 131 U/L (46-116); Anion Gap 12.2 mmol/L (3-11); BUN 7 mg/dL (7-18); Bilirubin, Total 0.2 mg/dL (0.2-1.0); CO2 26.8 mmol/L (21.0-32.0); CREATININE 0.8 mg/dL (0.70-1.30); Calcium 8.7 mg/dL (8.5-10.1); Chloride 100 mmol/L (98-107); ETHANOL BLOOD 285.2 mg/dL (<10); Estimated GFR 114.02 (mL/min/1.73m2); Glucose 80 mg/dL (74-106); Lipase 96 U/L (73-393); Potassium 3.3 mmol/L (3.5-5.1); Sodium 139 mmol/L (136-145); Total Protein 7.9 g/dL (6.4-8.2)
[2022-07-19 09:33] LABS: *AMPHETAMINES SCREEN URINE Negative (Negative); *BARBITURATES SCREEN URINE Positive (Negative); *BENZODIAZEPINES SCREEN URINE Negative (Negative); Cannabinoids THC Positive (Negative); Cocaine Screen,Urine Negative (Negative); METHADONE URINE SCREEN Negative (Negative); OPIATES URINE SCREEN Negative (Negative); Tricyclic Antidepressants Negative (Negative)
--- NOTE | 2022-07-19 09:56 | NUR.NOTE ---
Nursing Note: Patient removed his own IV and left the ED against medical advice without signing paperwork.
== END 2022-07-19 18:47 | disposition left against medical advice (07) ==
PROVIDERS: Emergency Provider Emergency Medicine; PCP Family Medicine
DX: R11.0 Nausea (principal); R10.13 Epigastric pain; I10 Essential (primary) hypertension; F17.210 Nicotine dependence, cigarettes, uncomplicated; R00.0 Tachycardia, unspecified; Z53.20 Procedure and treatment not carried out because of patient's decision for unspecified reasons
CPT/HCPCS: 36415; 80053; 80307; 83690; 96361; 96374; 96375; 99284; 80320; 85025; J2405

== ENCOUNTER 2022-11-06 14:41 | Emergency (ER) | payer MEDICAID, SELFPAY ==
[2022-11-06 14:51] VITALS: BP 126/85; PULSE 99; RESP 18; TEMP 36.7; O2SAT 96
--- NOTE | 2022-11-06 15:24 | ED.GENADUL_ITS ---
Discharge Plan Discharge Details Chief Complaint: PsychEval Primary Care Provider: Sophia Kelsey ED Provider: Gabo Conde Home Meds and New Rx's Prescriptions: No Action clonidine HCl 0.2 mg tablet 0.2 mg PO Q4H PRN gabapentin 600 mg tablet 600 mg PO TID lisinopril 20 mg tablet 20 mg PO DAILY quetiapine 50 mg tablet 100 mg PO BID triamcinolone acetonide 0.025 % cream 1 applic topical BID lisdexamfetamine 50 mg capsule 50 mg PO QAM MDD 60 Qty: 28 0RF Label Comments: Sometimes forget to take the medication. Last taken two days ago according to pt. buprenorphine-naloxone 8-2 mg Film 2 film BUCCAL DAILY Label Comments: confirmed with ISELA 05/16/22 Rx Instructions: place 1 film on inside of (each) cheek Medical Decision Making 42-year-old gentleman presents with increasing SI, depression, no specific plan of self-harm. He also reports auditory hallucinations, hearing voices, like their background sounds but noncommand hallucinations. Reports that he has not been intoxicated with alcohol in over 3 months. He did have a Suboxone this morning. He was recently discharged from [facility], ran out of medications and since that time has been noncompliant. We have reached out to [facility] to get a discharge and medication summary. Using the [employer] medical clearance form, patient is medically cleared. Plan to obtain a COVID swab, urinalysis and urine tox screen. We will initiate a mental health evaluation, interim care plan, and CPSO. This documentation was generated using [employer] dictation system, please disregard any oddities of phrase or misspellings. Medical Records Medical records reviewed: Yes I reviewed the patient's medical records. HPI General Mode of arrival: ambulatory . Date/Time Provider Initiated Documentation: 11/06/22 14:44 . Limitations to Documentation: no limitations . Information obtained by: patient . HPI Narrative: This is a 42-year-old gentleman with a Jacey history of anxiety, depression, polysubstance abuse who reports that he is currently on Suboxone and has not been intoxicated with alcohol in over 3 months, states that he was released from [facility] approximately 2 weeks ago, has since run out of his psychiatric medications, now feeling increased anxiety, depression, auditory hallucinations, SI without a specific plan. Patient reports that he had she had pain 3 days ago but only a glass. He denies any other drug use. He denies recent illness or trauma, no acute medical concerns or complaints. Denies self- harm today. Related Data Home Medications Medication Instructions Recorded Confirmed lisdexamfetamine 50 mg capsule 50 mg PO QAM #28 caps 05/10/22 11/06/22 buprenorphine 8 mg-naloxone 2 mg 2 film buccal DAILY 05/16/22 11/06/22 sublingual film clonidine HCl 0.2 mg tablet 0.2 mg PO Q4H PRN 06/05/22 11/06/22 gabapentin 600 mg tablet 600 mg PO TID 06/05/22 11/06/22 lisinopril 20 mg tablet 20 mg PO DAILY 06/05/22 11/06/22 quetiapine 50 mg tablet 100 mg PO BID 06/05/22 11/06/22 triamcinolone acetonide 0.025 % 1 applic topical BID 06/05/22 11/06/22 topical cream Previous Rx's Medication Instructions Recorded lisdexamfetamine 50 mg capsule 50 mg PO QAM #28 caps 05/10/22 Allergies Allergy/AdvReac Type Severity Reaction Status Date / Time No Known Allergies Allergy Verified 05/15/22 07:23 General Stated Complaint: PsychEval PACO: 2 Review of Systems Constitutional Constitutional: Denies fatigue, Denies fever(s), Denies headache(s) and Denies weakness ENT Ears, Nose, Mouth, and Throat: Denies headache(s) and Denies neck pain Cardiovascular Cardiovascular: Denies chest pain Respiratory Respiratory: Denies cough Gastrointestinal Gastrointestinal: Denies abdominal pain, Denies nausea and Denies vomiting Genitourinary Genitourinary: Denies dysuria Musculoskeletal Musculoskeletal: Denies back pain, Denies neck pain, Denies numbness and Denies tingling Integumentary/Breasts Skin/Breast: Denies rash Neurologic Neurologic: Denies headache(s), Denies numbness, Denies tingling and Denies weakness Psychiatric Psychiatric: Reports anxiety, Reports depression and Reports suicidal ideation Endocrine Endocrine: Denies fatigue PFSH All Active Problems Anxiety (Chronic) Opioid dependence in remission (Chronic) Polysubstance abuse (Chronic) Alcohol withdrawal (Acute) Alcohol abuse (Chronic) Depression with anxiety (Acute) Acute opioid withdrawal (Acute) Diarrhea (Acute) Tobacco abuse (Acute 11/19/17) 1/2 ppd HFrEF (heart failure with reduced ejection fraction) (Acute) Anxiety (Chronic 09/05/17) Medical History ADD (attention deficit disorder) Cardiomyopathy Closed right ankle fracture (~09/2019) Depression with suicidal ideation Hospitalized at [facility] psych 02/15-02/26/22. Erectile dysfunction (10/03/17) Gynecomastia, male (03/11/18) secondary to methadone Hyperglycemia (09/05/17) Hyperprolactinemia (04/15/18) Hypertension Hypogonadism, male (03/24/18) Pending appt with Dr. Charles at [facility] in [place] Methadone dependence (04/01/18) [facility] in [facility] Hx intranasal and oral use of opioids. Meets with therapist twice monthly; has had take-home in the past. QT prolongation Surgical History S/P hernia repair Family History Mother Diabetes Cancer thyroid cancer Father Diabetes Essential hypertension Paternal Grandfather No problems noted. Maternal Grandfather Stroke Paternal Uncle Cancer stomach cancer Other Family history of diabetes mellitus (DM) Social History Smoking/Tobacco Use Status: Current every day Tobacco Type: cigarettes Quit status: considering quitting Counseling given: provider counseling Smoking risk assessment performed?: Yes Alcohol Intake: current Alcohol Intake frequency: 3 or more drinks per day Alcohol type: hard liquor Counseling given: Yes Drug use: Occasionally Substance use type: marijuana Counseling provided: treatment program Household members: family Housing: other Details: living with his father Number of Children: 1 Education Level: high school 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, 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 Exam Const General: cooperative, healthy appearing, comfortable and no acute distress Orientation: alert, awake and oriented x3 HENMT Head: normal to inspection, normocephalic and atraumatic Face and sinus: normal facial exam Mouth: moist mucous membranes Eyes General: appearance normal, both eyes and all related structures Conjunctivae: conjunctivae normal Neck Neck: normal visual inspection, full ROM, no meningeal signs, trachea midline and supple Resp Effort & Inspection: normal respiratory effort and able to speak in complete sentences Auscultation: clear to auscultation bilaterally Cardio Rate: regular rate Rhythm: regular rhythm GI Palpation: soft and nontender Back/Spine/Pelvis Back: No back tenderness Skin General skin exam: no rashes or lesions noted Neuro General: patient alert, patient awake, patient oriented x3, moves all extremities and no focal motor deficits Cognition: normal cognition Speech: speech normal Gait: normal gait Motor: muscle tone normal throughout Sensory Exam: no sensory deficits noted Extrem General: normal to inspection, full ROM and capillary refill normal Psych Appearance: grossly normal Mental Status: mental status grossly normal Speech and Movement: speech and movement normal Mood: anxious mood and dysthymic mood Affect: sad Attitude: cooperative Thought Process: normal Thought Content: suicidality Insight: fair Judgment: fair Course Vital Signs Vital signs: Vital Signs Temperature 36.7 C 11/06/22 14:51 Pulse 99 H 11/06/22 14:51 Respiratory Rate 18 11/06/22 14:51 Blood Pressure 126/85 11/06/22 14:51 Pulse Oximetry 96 11/06/22 14:51 Temperature 36.7 C 11/06/22 14:51 Temperature Source Tympanic 11/06/22 14:51 Pulse 99 H 11/06/22 14:51 Respiratory Rate 18 11/06/22 14:51 Blood Pressure 126/85 11/06/22 14:51 Blood Pressure Position Sitting 11/06/22 14:51 Pulse Oximetry 96 11/06/22 14:51 Oxygen Delivery Method Room Air 11/06/22 14:51 Oxygen Flow Rate 0 11/06/22 14:51
--- NOTE | 2022-11-06 16:07 | CMSP_ITS ---
- If Service Date Differs Date of service: 11/06/22 Time of Service: 16:07 Care Management Safety Plan Status: Interim - Reason for Wait Reason for Wait: Assessment/Screening Chief Complaint: Dangelo presents in the ED for auditory hallucinations and worsening suicidal ideation. He has a history of substance use but tells ED provider he has not been intoxicated with alcohol for several months now. He reportedly was recently discharged from [facility] and has not been taking medications as he ran out of them. Francois, [facility] crisis screener, attempted to assess Dangelo but was unsuccessful due to odd behavior. Francois will complete the assessment after toxicology results are obtained to ensure Dangelo doesn't have substances onboard that are causing the behaviors. CM will respond to ED to assess patient after patient has been medically cleared and assessed by screener. If screener deems patient meets criteria for psychiatric stabilization CM will facilitate interdepartmental huddle with [facility] screener for safety planning considerations and meet with patient to review [facility] policy and safety plan, establish individual wishes for treatment and maintain patient rights. In the interim; please note safety plan below to guide patient care while awaiting further assessment in the ED. SAFETY PLAN: 1. Will remain on suicide precautions and in paper clothes. 2. Will remain in room under direct supervision of one-on-one staff at all times provided by CPSO, RAILWAYS ASSISTANT, PEDIATRIC DERMATOLOGIST travel information center supervisor. 3. May have paper cups, plates, finger foods as well as a cardboard spoon with which to eat meals. 4. Follow [facility] Management of the Admitted Behavioral Health Patient policy. 5. Personal care: Comfort bath system only at this time. 6. Bathroom privileges: with escort in ED. Available in room without limitation on Med/Surg. 6. No personal belongings at this time; per RN discretion. 7. No visitors at this time. 8. Phone contact limited to family contact via cordless hospital phone at this time. 9. Activities: Soft cart activities, music tablet, television, and other activities at RN discretion. 10. Due to VOLUNTARY status, if patient wishes to leave [facility], staff will contact [facility] Crisis Screener ([phone]) and On-Call Legal Office Administrator ([phone]) as soon as possible. In the event of elopement, notify [facility] Police ([phone]). If deemed appropriate for inpatient psychiatric care, safety plan will be established with patient, and care team, to adhere to patient goals, identify restrictions based on behavioral status, address nutrition, and determine allowed personal belongings, tools for hygiene and personal care. As well plan will determine level of activity including ambulation, level of supervision, visitors, and determine privileges based on level of acuity, behaviors and level of engagement by patient.
[2022-11-06 16:14] LABS: Source Nasal/Nares
[2022-11-06 16:14] LABS: Bilirubin Negative (Negative); Blood Negative (Negative); Clarity Clear (Clear); Glucose Negative (Negative); Ketones Negative (Negative); Leukocyte Esterase Negative (Negative); Nitrite Negative (Negative); Specific Gravity 1.025 (1.005-1.025); Urobilinogen 0.2 EU/dL (Up TO 0.2)
--- NOTE | 2022-11-06 16:26 | NUR.NOTE ---
Nursing Note: Discharge summary/med rec requested from [place], [place]. Request faxed to #[phone] and to #[phone]
[2022-11-06 16:34] LABS: *AMPHETAMINES SCREEN URINE Negative (Negative); *BARBITURATES SCREEN URINE Negative (Negative); *BENZODIAZEPINES SCREEN URINE Negative (Negative); Cannabinoids THC Negative (Negative); Cocaine Screen,Urine Negative (Negative); METHADONE URINE SCREEN Negative (Negative); OPIATES URINE SCREEN Negative (Negative)
[2022-11-06 16:38] LABS: Tricyclic Antidepressants Negative (Negative)
[2022-11-06 16:49] LABS: COVID-19 PCR Negative (Negative)
[2022-11-06 16:57] LABS: Abs Immature Grans 0.02 10^3/uL (0.0-0.06); Absolute Basophil Count 0.04 10^3/uL (0.0-0.2); Absolute Eosinophil Count 0.06 10^3/uL (0.0-0.7); Absolute Lymphocyte Count 2.95 10^3/uL (1.2-3.4); Absolute Monocyte Count 0.55 10^3/uL (0.1-0.8); Absolute Neutrophil Count 6.03 10^3/uL (1.2-6.7); Basophils % 0.4; Eosinophils % 0.6; HCT 44.8 % (40.0-50.0); Immature Grans % 0.2; Lymphocytes % 30.6; MCH 30.5 pg (27.0-33.0); MCHC 33.5 % (32.0-36.0); MCV 91 fL (80-95); MPV 9.4 fL (8.0-11.0); Monocytes % 5.7; Neutrophils % 62.5; Platelet Count 275 10^3/uL (130-400); RBC 4.92 10^6/uL (4.36-5.78); RDW 11.6 % (11.8-14.1); RDW-SD 38.9 fL; WBC 9.65 10^3/uL (4.4-10.8)
[2022-11-06 17:12] LABS: ALT 41 U/L (16-63); AST 20 U/L (15-37); Albumin 4.5 g/dL (3.4-5.0); Alkaline Phosphatase 100 U/L (46-116); Anion Gap 5.1 mmol/L (3-11); BUN 25 mg/dL (7-18); Bilirubin, Total 0.3 mg/dL (0.2-1.0); CO2 30.9 mmol/L (21.0-32.0); CREATININE 0.9 mg/dL (0.70-1.30); Calcium 9.5 mg/dL (8.5-10.1); Chloride 101 mmol/L (98-107); Estimated GFR 109.36 (mL/min/1.73m2); Glucose 103 mg/dL (74-106); Potassium 4.1 mmol/L (3.5-5.1); Sodium 137 mmol/L (136-145); Total Protein 8.3 g/dL (6.4-8.2)
[2022-11-06 17:28] LABS: ETHANOL BLOOD < 3.0 mg/dL (<10)
[2022-11-06] MEDS: QUEtiapine 100 MG TAB PO (18:30)
[2022-11-06] MEDS: Gabapentin 300 MG CAP PO (18:32)
[2022-11-06] MEDS: risperiDONE 1 MG TAB 4 MG PO (18:33)
[2022-11-06] MEDS: Venlafaxine 75 MG TAB PO (18:56)
[2022-11-06] MEDS: cloNIDine 0.1 MG TAB 0.2 MG PO (22:10)
[2022-11-07] MEDS: Buprenorphine/Naloxone 2 mg/0.5 mg FILM 1 EACH SL (08:30)
[2022-11-07] MEDS: cloNIDine 0.1 MG TAB (08:30)
[2022-11-07] MEDS: Buprenorphine/Naloxone 12 mg/3 mg FILM 1 EACH SL (08:30)
[2022-11-07] MEDS: QUEtiapine 100 MG TAB (08:30)
[2022-11-07] MEDS: Lisinopril 10 MG TAB (08:30)
[2022-11-07] MEDS: risperiDONE 1 MG TAB (08:30)
--- NOTE | 2022-11-07 10:06 | PDOC.MHCN_ITS ---
Date of service: 11/06/22 Time of Service: 16:40 PHQ-9 Over the last 2 weeks, how often have you been bothered by any of the following problems? 1. Little interest or pleasure in doing things: nearly every day 2. Feeling down, depressed, or hopeless: nearly every day 3. Trouble falling or staying asleep, or sleeping too much: nearly every day 4. Feeling tired or having little energy: nearly every day 5. Poor appetite or overeating: nearly every day 6. Feeling bad about yourself - or that you are a failure or have let yourself and your family down: nearly every day 7. Trouble concentrating on things, such as reading the newspaper or watching television: more than half the days 8. Moving or speaking so slowly that other people could have noticed? - Or the opposite - being so fidgety or restless that you have been moving around a lot more than usual: several days 9. Thoughts that you would be better off or of hurting yourself in some way: more than half the days Total score: 23 If you checked off any problems, how difficult have these problems made it for you to do your work, take care of things at home, or get along with other people?: somewhat difficult Source: Developed by Drs. Jamie Gustafson, Violeta Sorenson, Perry Dwyer and colleagues, with an educational didi from [employer]. Suicide Severity Rate CSSRS Have you wished you were or wished you could go to sleep and not wake up?: Yes Have you actually had any thoughts of killing yourself?: Yes CSSRS2 Have you been thinking about how you might do this?: Yes Have you had these thoughts and had some intention of acting on them?: Yes Have you started to work out or worked out the details of how to kill yourself? Do you intend to carry out this plan?: Yes CSSRS3 Have you ever done anything, started to do anything or prepared to do anything to end your life?: Yes CSSRS4 Was this within the past three months?: Yes Screening Score Total Score: 8 Screening: Positive Mental Health Emergency Note Release [facility] release signed:: Yes Reason for Visit SI and auditory hallucinations In the last 2 weeks has the pt presented for ES prior to today?: No Client Information Client is: Adult Outpatient Well Housed: Yes Non Suicidal Self Injury Current: No History: yes, N/A Safety Risk/Harm to Self or Others Current Ideation to Harm Self or Others: Yes to self. Intent: no, has no intent. Plan: yes,has a plan. Risk: Does risk to harm exist?: yes. Access to means: No. Risk: Moderate Risk Duty to warn indicated: No Asssessment/Mental Status Appearance: Disheveled Attitude: Cooperative Behavior: Unremarkable Speech: Soft and Hesitant Affect: Flat Mood: Stressed Thought process: Blocking Hallucinations: yes, Auditory Delusions: No Attention: Unremarkable Perception: Not impaired Orientation: Fully orientated Memory: Intact Insight: Fair Judgement: Poor Neurovegetative Symptoms Sleep: Decrease Appetitie: Decrease Interests: Decrease Energy: Decrease Libido: Not applicable Substance Use: ETOH dependence Drug Issues: Other (MAT participant) Do you use nicotine?: No Have you used substances in the last 7 days?: No Additional Issues: Assaultive/Threatening Behavior: No Medical Concerns: No Client engaged in active self harm w/weapon: No Threatening to run away: No Child reported abuse/neglect: No Voluntarily presenting for services: Yes Domestic violence is a concern: No Extreme Psychosis or extreme behavior is present: No Impression This client presented to the ED reporting SI and auditory hallucinations. During the screening, the client started answering this clinician's questions in a [id number], inconclusive/indecisive way. Due to a history of SA, this clinician felt it was important to rule out any substances being onboard, considering his behavior; all labs came back negative. Client has a somewhat disorganized thought process which seems to be affecting his decision making. As an example, the client stated he wants to go to treatment and then a few seconds later would anxiously state he actually doesn't and just needs his medications refilled and shortly after that would ask if he could be held involuntarily. In an attempt to safety plan this client home as he eventually settled on just needing his medications (along with the knowledge of his established appointments with a med provider on 10/27)3, he then stated he does not feel safe to return home. Client is voluntary at this time with a plan to reassess in the morning on 11/07. Resources Reosurces reviewed and given:: [facility] Plan/Disposition Recommended Disposition: [facility] Services [facility] Services: Other (Client has an appt with a med provider on 11/08). Plan: Client to be reassessed for new disposition plan, client could meet criteria/benefit from treatment. Community supports in place should be weighed in disposition planning for this client. Person reported agreement to plan: Yes Reports/communication Outcome discussed with: ED/Personnel
--- NOTE | 2022-11-07 11:33 | PDOC.MHPN2 ---
Date of service: 11/07/22 Time of Service: 10:41 Mental Health Emergency Note Release [facility] release signed:: Yes Reason for Visit Client presented to [facility] ED on 11/06 for chief compliant of SI/auditory hallucinations. In the last 2 weeks has the pt presented for ES prior to today?: Unknown Client Information Client is: Adult Outpatient Well Housed: Yes Non Suicidal Self Injury Current: No History: yes, Client denies currently endorsing NSSI. Client denies intent/plan. Client reports past hx. of engaging in NSSIB's of self-cutting. Client reports last engaging in self-cutting this past summer. Client reports in the past, he has self-inflicted wounds on his wrists and arms. Safety Risk/Harm to Self or Others Current Ideation to Harm Self or Others: Yes to self. (Client reports currently endorsing SI. Client reports multiple plans/intent. Client reports, I will cut myself with my carving knife or hang myself with an electrical cord. ) Intent: yes, has intent. Plan: yes,has a plan. History of suicide attempt: yes,history of suicide attempt reported. Details of previous suicide attempt: Client has past hx. of Suicide attempt. Details of previous attempts are unknown to this law writer. Asssessment/Mental Status Appearance: Disheveled Attitude: Cooperative Behavior: Unremarkable Speech: Normal Affect: Flat and Cogruent with mood Mood: Sad, Depressed, Anxious and Other (Client reports current mood as, dark. ) Thought process: Unremarkable Hallucinations: yes, (Client reports current/past hx of expereincing auditory halluncations) Auditory (Client reports hearing voices others can not hear. Client did not wish to disclose to this law writer what the voices were stating.) Delusions: No evidence Attention: Unremarkable Perception: Not impaired Orientation: Fully orientated Memory: Intact Insight: Fair Judgement: Poor Neurovegetative Symptoms Sleep: Decrease (Client reports decrease in sleep habbits. Client reports getting 4-5 hrs of sleep last night, which is less than he typically gets.) Appetitie: Decrease (Client reports decrease in eating habbits. Client reports he has not yet eaten this morning and reports having lack of appetite.) Interests: No change Energy: No change Libido: Not applicable Impression Client was assessed for F2F screening via zoom by this law writer. Client was located in [facility] ED and this law writer was located at [facility], during the time of the assessment. Prior to screening client, this law writer gained collateral information from client's attending PA Jaz Lyon. Sonali reports client presented to ED with chief complaint of SI/auditory hallucinations on 11/06. Sonali reports client has remained calm/appropriate/cooperative since arriving to ED. Client is known to [facility]. Client is a 42 y.o. male who resides in [place], [place]. Client reports current mood as dark. Client presents with fair insight and poor judgment. Client presents with impulsive thought process. Client reports currently endorsing SI, and is expereining thoughts such as, not wanting to be alive. Client reports multiple plans/intent. Client reports in attempt to end his life by suicide we would cut himself using his carving knife that is located in the garage and/or hang himself with an electrical cord in his garage. Client rated self a 9 out of 10 on how likely he felt he would be to act on his thoughts of SI, if he were to leave the ED today. At this time client's plan was not able to be disabled. When asked by this law writer if access to means were removed, specifically his knife and electrical cord, did he feel he could keep himself safe returning home/to the community. Client responded, no, I could pretty much just harm myself with anything. It is this law writer's clinical opinion client meets criteria for IP tx at this time based on client's need for stabilization, reduction in SI, and adjustment to medications. Plan/Disposition Recommended Disposition: Hospitalization (IP MH TX) facilities contacted. Plan: Client is currently voluntary and seeking placement for IP MH TX. Client is to remain in ED until placement can be secured. Client has been informed if he attempts to leave [place], ES would consider moving forward with EE application for involuntary hold. Person reported agreement to plan: Yes Facilities contacted if Applicable [facility] ([facility] be sent) Not accepted, (Still Pending Review ) Other (Pending Review) [facility] (Referrals will be sent) Not accepted, (Still Pending Review) Other (Pending Review ), [facility] (Referrals will be sent) Not accepted, (Still Pending Review) Other (Pending Review ) Reports/communication Outcome discussed with: ED/Personnel (This law writer spoke with attending ESTRELLITA Lyon prior to screening client. This law writer then spoke to attending nurse Dillan and provided dispostion plan in place moving foward which is hospitalization at this time.)
--- NOTE | 2022-11-07 11:59 | PDOC.CMSAFED ---
- If Service Date Differs Date of service: 11/07/22 Time of Service: 11:59 Care Management Safety Plan Status: Voluntary - Reason for Wait Reason for Wait: Inpatient Admission VOLUNTARY FOR INPATIENT PSYCHIATRIC STABILIZATION. Patient is appropriate in all interactions since arriving at [facility]; Pt has demonstrated appropriate coping and communication skills, has articulated his or her needs and concerns and is fully engaged during staff interactions. A decentralized huddle is done with Jaz, ED provider, Amanda, nursing, cabinetmaker supervisor, CL Grimaldo, and GLORIA Ayala. Safety plan has been established with patient, and care team, to adhere to patient goals, identify restrictions based on behavioral status, address nutrition, and determine allowed personal belongings, tools for hygiene and personal care. Determine level of activity including ambulation, level of supervision, visitors, and determine privileges based on behaviors and level of engagement by pt. SAFETY PLAN: 1. Will remain on suicide precautions. In Paper Clothes 2. Will remain in room under direct supervision of one-on-one staff at all times provided by [employer], JAYDEN, CONTOUR PATH TAPE MILL OPERATOR chemical operator. 3. May have paper cups, plates, finger foods as well as a cardboard spoon with which to eat meals. 4. Follow [facility] Management of the Admitted Behavioral Health Patient policy. 5. Shower permitted with escort at RN discretion. 6. No personal belongings-soft items permitted at RN discretion. 7. Visitors-none at this time. 8. Activities: soft cart items, music tablet, television and other activities at RN discretion. 9. Bathroom privileges with escort in the ED, available in room without limitation on M/S. 10. Phone: contact limited to family at this time, via [address] [facility] phone at RN discretion. 11. Due to VOLUNTARY status, if patient wishes to leave [facility], staff will contact [facility] Crisis Screener ([phone]) and On-Call Residential Green Building Designer ([phone]) as soon as possible. In the event of elopement, notify [facility] Police ([phone]). Patient is currently voluntarily at [facility] and seeking inpatient admission when a bed becomes available. [facility] Frontline Supply Clerk will continue seeking placement. Please contact the Underwater Hunter Trapper Residential Green Building Designer ([phone]) and [facility] Supply Clerk ([phone]) for any needed changes in the Safety Plan. Safety plan has been provided to interdepartmental care team.
[2022-11-07] MEDS: Gabapentin 300 MG CAP (14:02)
[2022-11-07] MEDS: Gabapentin 300 MG CAP PO ×2 (14:05→18:42)
--- NOTE | 2022-11-07 16:16 | W.EDPROG ---
Date of service: 11/07/22 Time of Service: 16:17 Medical Decision Making Care is accepted and transition from Dr. Ry Gleason at 8 AM this morning, patient continues to have suicidal ideation, he remains voluntary placement and will need mental health reassessment should he decide that he no longer wants to be voluntary in this hospital He has been calm and cooperative throughout this encounter and all of his meds were ordered He had a mental health assessment and bed search continues at this time Sign Out Sign Out Data: Sign Out Comment: Medically cleared. Presents off of his medications for the past 10 days, reports anxiety, depression, auditory hallucinations, SI without specific plan. Awaiting mental health evaluation. Last updated by Gabo Conde PA at 11/06/22 15:33 Sign Out Comment: voluntary bed status, pending reassessment in AM by and possible bed hold SI currently/auditory hallucinations Last updated by Jaz Rondon PA at 11/06/22 23:35 Discharge Plan Disposition Patient Disposition: Home Condition: Stable Discharge Details Clinical Impression: Mood disorder Primary Care Provider: Sophia Kelsey ED Provider: Jaz Rondon Home Meds and New Rx's Prescriptions: New gabapentin [Neurontin] 300 mg capsule 300 mg PO TID Qty: 4 0RF quetiapine [Seroquel] 100 mg tablet 100 mg PO TID Qty: 4 0RF risperidone [Risperdal] 4 mg tablet 4 mg PO BID Qty: 4 0RF venlafaxine [Effexor XR] 75 mg capsule,extended release 24hr 75 mg PO DAILY Qty: 4 0RF Continued clonidine HCl 0.2 mg tablet 0.2 mg PO Q4H PRN gabapentin 600 mg tablet 600 mg PO TID lisinopril 20 mg tablet 20 mg PO DAILY quetiapine 50 mg tablet 100 mg PO BID triamcinolone acetonide 0.025 % cream 1 applic topical BID lisdexamfetamine 50 mg capsule 50 mg PO QAM MDD 60 Qty: 28 0RF Label Comments: Sometimes forget to take the medication. Last taken two days ago according to pt. buprenorphine-naloxone 8-2 mg Film 2 film BUCCAL DAILY Label Comments: confirmed with ISELA 05/16/22 Rx Instructions: place 1 film on inside of (each) cheek Discharge Instructions Additional Instructions: Please follow-up at your scheduled appointment on Friday, take your medications exactly as prescribed You are doing a great job of staying sober, keep up the great work Return earlier should you have new or worsening complaints Referrals: Sophia Kelsey MD [Primary Care Provider] - 1 day
--- NOTE | 2022-11-07 17:20 | CMPROGNOTE_ITS ---
- If Service Date Differs Date of service: 11/07/22 Time of Service: 17:20 Care Management Progress Note S/O: Dangelo is lying in bed when CM comes to meet with him. He is pleasant and easily engages in conversation. He shares he is not doing well and is having suicidal thoughts. He reportedly held a knife to his throat recently and contemplated slitting his throat in a suicide attempt. He presented in the ED on 11/06/2022 seeking help. A: Dangelo remains at [facility] awaiting a voluntary psychiatric placement. P: [facility] and [facility] for review. Dangelo will remain at [facility] voluntarily and will be reassessed daily by [facility] until a bed can be secured for him. CM will continue to follow. - Status Status: Voluntary - Reason for Wait Reason for Wait: Inpatient Admission
[2022-11-07] MEDS: hydrOXYzine HCL 25 MG TAB 50 MG PO (18:42)
[2022-11-07] MEDS: QUEtiapine 100 MG TAB PO (18:42)
[2022-11-08] MEDS: Melatonin 3 MG TAB 6 MG PO (02:56)
[2022-11-08] MEDS: Buprenorphine/Naloxone 12 mg/3 mg FILM 1 EACH SL (08:09)
[2022-11-08] MEDS: Buprenorphine/Naloxone 4 mg/1 mg FILM 1 EACH SL (08:10)
[2022-11-08] MEDS: cloNIDine 0.1 MG TAB 0.2 MG PO ×2 (08:10→14:59)
[2022-11-08] MEDS: Gabapentin 300 MG CAP PO ×2 (08:10→14:59)
[2022-11-08] MEDS: Lisinopril 20 MG TAB PO (08:10)
[2022-11-08] MEDS: Thiamine 100 MG TAB PO (08:11)
[2022-11-08] MEDS: Nicotine 21 MG/24 HR PATCH TD (08:11)
[2022-11-08] MEDS: Venlafaxine 75 MG CAPCR PO (08:11)
[2022-11-08] MEDS: risperiDONE 1 MG TAB 4 MG PO (08:30)
[2022-11-08] MEDS: QUEtiapine 100 MG TAB PO ×2 (08:41→15:00)
[2022-11-08 15:46] VITALS: BP 89/61; PULSE 115; RESP 18; TEMP 36.8; O2SAT 94
[2022-11-08 15:54] VITALS: BP 89/61; PULSE 115; RESP 18; O2SAT 94
--- NOTE | 2022-11-08 19:37 | PDOC.MHPN2 ---
Date of service: 11/08/22 Time of Service: 19:38 PHQ-9 Over the last 2 weeks, how often have you been bothered by any of the following problems? 1. Little interest or pleasure in doing things: nearly every day 2. Feeling down, depressed, or hopeless: nearly every day 3. Trouble falling or staying asleep, or sleeping too much: nearly every day 4. Feeling tired or having little energy: nearly every day 5. Poor appetite or overeating: nearly every day 6. Feeling bad about yourself - or that you are a failure or have let yourself and your family down: nearly every day 7. Trouble concentrating on things, such as reading the newspaper or watching television: more than half the days 8. Moving or speaking so slowly that other people could have noticed? - Or the opposite - being so fidgety or restless that you have been moving around a lot more than usual: several days 9. Thoughts that you would be better off or of hurting yourself in some way: more than half the days Total score: 23 If you checked off any problems, how difficult have these problems made it for you to do your work, take care of things at home, or get along with other people?: somewhat difficult Source: Developed by Drs. Jamie Gustafson, Violeta Sorenson, Perry Dwyer and colleagues, with an educational didi from [employer]. Suicide Severity Rate CSSRS Have you wished you were or wished you could go to sleep and not wake up?: Yes Have you actually had any thoughts of killing yourself?: Yes CSSRS2 Have you been thinking about how you might do this?: Yes Have you had these thoughts and had some intention of acting on them?: Yes Have you started to work out or worked out the details of how to kill yourself? Do you intend to carry out this plan?: Yes CSSRS3 Have you ever done anything, started to do anything or prepared to do anything to end your life?: Yes CSSRS4 Was this within the past three months?: Yes Screening Score Total Score: 8 Screening: Positive Mental Health Emergency Note Release [facility] release signed:: Yes Reason for Visit Client presented to [facility] ED on 11/06 for chief compliant of SI/auditory hallucinations. Client was assessed for F2F screening with this clinician. In the last 2 weeks has the pt presented for ES prior to today?: Unknown Client Information Client is: Adult Outpatient Well Housed: Yes Non Suicidal Self Injury Current: No History: No Safety Risk/Harm to Self or Others Current Ideation to Harm Self or Others: Yes to self. (Client denies currently endorsing NSSI. Client denies intent/plan. Client reports past hx. of engaging in NSSIB's of self-cutting. Client reports last engaging in self-cutting this past summer. Client reports in the past, he has self-inflicted wounds on his wrists and arms.) Intent: yes, has intent. Plan: no.does not have a plan. Risk: Does risk to harm exist?: yes. Access to means: No. Risk: Moderate Risk Duty to warn indicated: No Asssessment/Mental Status Appearance: Disheveled Attitude: Cooperative Behavior: Unremarkable Speech: Normal Affect: Normal Mood: Depressed Thought process: Goal directed Hallucinations: No Delusions: No Attention: Unremarkable Perception: Not impaired Orientation: Fully orientated Memory: Intact Insight: Fair Judgement: Fair Neurovegetative Symptoms Sleep: Increase Appetitie: No change Interests: No change Energy: No change Libido: Not applicable Substance Use: Do you use nicotine?: No Have you used substances in the last 7 days?: No Additional Issues: Assaultive/Threatening Behavior: No Medical Concerns: No Client engaged in active self harm w/weapon: No Threatening to run away: No Child reported abuse/neglect: No Voluntarily presenting for services: Yes Domestic violence is a concern: No Extreme Psychosis or extreme behavior is present: No Impression Client is a 42 year old, single, male who lives in [facility] per record review. Client is seen face to face at [facility] and is sleeping when this clinician arrived. He is observed covered in a blanket with another wrapped around his head as if to block the light so that he can sleep. Client denied SI today and was asked what had changed since 11.07.22 to which he responded I just want to go to sleep today and not wake up and yesterday I was actually thinking of plans. Client denied HI. He reported he is sleeping and eating okay as well. He reported that the standing order of Seroquel and Risperidone is making a difference in his mood. 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 He was discharged from a hospital [facility] 2 weeks ago and presented to the ED per his initial assessment completed by KALEB Michael due to running out of his medications. KALEB Michael attempted to safety plan with a sooner appointment and refill of his medications until then however, the client was unwilling to do this at the time. The client's protective factors per record review are his minor daughter, actively participating in a MAT program and other MH services. Client is still endorsing SI and a wish to voluntarily admit himself for treatment. Resources Reosurces reviewed and given:: [facility] Plan/Disposition Recommended Disposition: Hospitalization facilities contacted. Plan: By 2:30pm the client was accepted to [facility] will be transporting the client per Care Management. Hospital notification was completed. Client will follow up with his OP treatment team upon discharge. Person reported agreement to plan: Yes Facilities contacted if Applicable [facility] Accepted, Accepted/transfer pending. Information Sent to [facility]: Referral Reports/communication Outcome discussed with: ED/Personnel Final Disposition/Discharge Final accepting facility/transferred to: [facility] Transportation Checklist completed and faxed: No Transport level: [facility]
== END 2022-11-08 15:47 ==
PROVIDERS: Physician Assistant; Emergency Provider Emergency Medicine; PCP Family Medicine
DX: F39 Unspecified mood [affective] disorder (principal); F41.9 Anxiety disorder, unspecified; F32.A Depression, unspecified; F11.20 Opioid dependence, uncomplicated; R44.0 Auditory hallucinations; R45.851 Suicidal ideations
CPT/HCPCS: 80053; 80307; 87635; 99285; H0046; 80320; 81003; 85025

== ENCOUNTER 2022-12-09 06:49 | Emergency (ER) | payer MEDICAID, SELFPAY ==
[2022-12-09 07:00] VITALS: BP 183/126; PULSE 124; O2SAT 99
--- NOTE | 2022-12-09 11:04 | NUR.NOTE ---
Nursing Note: Patient left without being seen
== END 2022-12-09 07:12 ==
LOC: ER 06:52
PROVIDERS: PCP Family Medicine
DX: Z53.21 Procedure and treatment not carried out due to patient leaving prior to being seen by health care provider (principal)

== ENCOUNTER 2022-12-09 09:12 | Emergency (ER) | payer MEDICAID, SELFPAY ==
[2022-12-09] VITALS (235 sets, daily range): BP systolic 87–170; BP diastolic 47–109; PULSE 81–125; RESP 9–29; TEMP 36.6; O2SAT 83–100
--- NOTE | 2022-12-09 09:45 | RT.EKG_ITS ---
APPROVED REPORT Exam: Resting ECG Reason for Exam: Possible overdose Patient Location: E HR:116 bpm ECG Measurements Heart Rate 116 AXIS [place] 161 P 47 QRSd 97 QRS 24 QT 331 T 237 QTc 459 Conclusion Sinus tachycardia...rate> 99 Abnormal T, consider ischemia, diffuse leads...T <-0.20mV, ant/lat/inf Physician: t wave inversions in anterior andlateral leads, intervls stable, no stemi
--- NOTE | 2022-12-09 09:47 | ED.GENADUL_ITS ---
Discharge Plan Discharge Details Chief Complaint: PsychEval Primary Care Provider: Sophia Kelsey ED Provider: Diego Redman Home Meds and New Rx's Prescriptions: No Action lisinopril 20 mg tablet 20 mg PO DAILY Patient Comments: 12/09 - pt states he should be taking but doesnt clonidine HCl 0.2 mg tablet 0.2 mg PO Q12H PRN Rx Instructions: Last RX'd by [facility] October 2022 venlafaxine 150 mg capsule,extended release 24hr 150 mg PO DAILY Qty: 4 0RF Rx Instructions: [facility] melatonin 3 mg capsule 6 mg PO HS PRN Rx Instructions: Last RX'd by [facility]. hydroxyzine pamoate [Vistaril] 50 mg capsule 50 mg PO QID PRN (Reason: itching) Qty: 30 0RF Rx Instructions: Last RX'd by [facility] 11/19/22. -hb gabapentin 300 mg capsule 300 mg PO TID Rx Instructions: [facility] on 11/19/2022. -hb risperidone [Risperdal] 4 mg tablet 4 mg PO BID Qty: 4 0RF Rx Instructions: [facility] on 11/19/22. -hb quetiapine [Seroquel] 200 mg tablet 400 mg PO QHS Qty: 60 0RF Rx Instructions: [facility] on 11/19/2022. Discharge Data Discharge Date/Time-TO BE ENTERED AT DEPARTURE: 12/11/22 14:38 Medical Decision Making <Kena Wilde NP - Last Filed: 12/09/22 16:50> 42-year-old male presents to the ER with a chief complaint of feeling sad and depressed. He reports that he has not slept in over 24 hours and he also sleeps all the time. He denies any suicidal ideation or doing anything over the last 24 to 48 hours to harm himself however after speaking with his father Andrey to he has been is staying with he reports that since Friday he has been hearing voices on Friday he called police because he thought there was a body in the attic. Police did come there was no body the father states that on Friday they were in court with him for 3 minor warrants they did see the supervisor statement clerks Erica and was released into the custody of his parents. Since Friday he has been taken over by voices per his parents he has not slept he has been standing out on the deck last night because the voices told him to he, his father states he has not eaten has not taken any of his meds because he he took them all. His father states that after 2 weeks he will take all of his meds and he has been confused. He reports that he cannot manage his medications. He also reports that he has been seen at 10 different hospitals for psychiatric needs. Upon further questioning of the parents I did go over his medication list. We will call poison control. Will give him Lorazepam and lisinopril. Work-up ordered including mental health evaluation, labs and UDS, EKG. Upon further questioning with his father he reports that he was prescribed lisinopril on November 20 had 30 tablets and it appears to be half full, he was prescribed quetiapine on November 20 dispense #60 of 200 mg tablets 2 tablets at bedtime which is empty, he was prescribed venlafaxine on 20 November dispense number 30 tablets 150 mg extended release there is 7 left, he was prescribed clonidine 0.2 mg every 12 hours on 20 November #60 which is empty, he was prescribed gabapentin 300 mg 3 times a day on 15 November #6 which is empty, he was prescribed melatonin on November 20 #60 tabs which is empty, he was also prescribed vitamin B tablets on 20 November #30 which appears to be half empty. Concern for cervical overdose and/or clonidine overdose melatonin overdose. [facility] in line of sight of nurses station is contacted by community service organization director. Patient placed in paper scrubs, sitter ordered and is at bedside. 09 59: EKG shows a QTc of 459, QT 331 See official report. 1001: Poision Control Contacted,They are concerned For Seroquel, Venlafaxine, and Clonidine Concern for Seizure, hypotension, and extrapyrymidiaL EFFECTS, Recommend Benzodiazepines, Urinary retention, CN depression with Gabapentin, May have some masked effects due to cocktail. 1010: Poison control recommends, to observe for anticholinergic effects, They recommend case monitor, and observation until symptoms resolve, Repeat Tylenol level in 4 hours. 1042: Spoke with Vania with [facility] who recommends EE, which I agree with. At this time his labs are largely within normal limits, pending salicylate level and Tylenol level, no leukocytosis sodium 138 potassium 3.8 which is within normal limits BUN/creatinine within normal limits GFR 96 glucose is 128. Urinalysis shows 40 ketones negative UDS. 1130: Tylenol salicylate within normal limits, patient is requesting his risperidone and clonidine. 4 mg of Risperdal and 0.2 of clonidine for one-time dose now ordered we will continue to closely monitor his blood pressure and QRS. Blood pressure at this time is 154/111, heart rate 107. 1232: Heart rate is now 107, blood pressure 129/77 O2 sat is 97% on room air. Patient has been calm and cooperative throughout his stay thus far. 1420: BP is currently beginning to be somewhat soft at this time blood pressure is 107/71, heart rate 96, patient is sleeping awakens easily to verbal stimulus. EE paperwork has been filled out at this time. Repeat Tylenol level within normal limits. 1530: Care is to be signed out to oncoming provider Prema HARO pending observation and admission to psychiatric inpatient. Discussed patient case in details with her she verbalized understanding. This text was generated using [employer] dictation system, please disregard any oddities of phrase or misspellings. Medical Records Medical records reviewed: Yes I reviewed the patient's medical records. Lab Data Lab results reviewed: Yes I reviewed the patient's lab results. Labs: Laboratory Tests Range/Units 12/09/22 12/09/22 12/09/22 09:30 09:30 09:47 WBC (4.4-10.8) 10^3/uL RBC (4.36-5.78) 10^6/uL Hgb (13.5-17.5) g/dL Hct (40.0-50.0) % MCV (80-95) fL MCH (27.0-33.0) pg MCHC (32.0-36.0) % RDW (11.8-14.1) % Plt Count (130-400) 10^3/uL MPV (8.0-11.0) fL Immature Gran % Neutrophils % Lymphocytes % Monocytes % Eosinophils % Basophils % Nucleated RBC % (0.0-0.3) % Absolute Neutrophils (1.2-6.7) 10^3/uL Absolute Lymphocytes (1.2-3.4) 10^3/uL Absolute Monocytes (0.1-0.8) 10^3/uL Absolute Eosinophils (0.0-0.7) 10^3/uL Absolute Basophils (0.0-0.2) 10^3/uL Sodium (136-145) mmol/L 138 Potassium (3.5-5.1) mmol/L 3.8 Chloride (98-107) mmol/L 100 Carbon Dioxide (21.0-32.0) mmol/L 28.6 Anion Gap (3-11) mmol/L 9.4 BUN (7-18) mg/dL 12 Creatinine (0.70-1.30) mg/dL 1.0 Est GFR (CKD-EPI 2020) (mL/min/1.73m2) 96.37 Glucose (74-106) mg/dL 128 H Calcium (8.5-10.1) mg/dL 10.1 Total Bilirubin (0.2-1.0) mg/dL 0.4 AST (15-37) U/L 18 ALT (16-63) U/L 44 Alkaline Phosphatase (46-116) U/L 99 Creatine Kinase (39-308) U/L Troponin I (<or=60) ng/L < 50 Total Protein (6.4-8.2) g/dL 8.0 Albumin (3.4-5.0) g/dL 4.6 TSH (0.36-3.74) uIU/mL 1.74 Urine Color (Yellow) Yellow Urine Clarity (Clear) Clear Urine pH (5-8) 5.5 Ur Specific [place] (1.005-1.025) 1.020 Urine Protein (Negative) mg/dL Negative Urine Ketones (Negative) mg/dL 40 H Urine Blood (Negative) Negative Urine Nitrite (Negative) Negative Urine Bilirubin (Negative) Negative Urine Urobilinogen (Up TO 0.2) EU/dL 0.2 Ur Leukocyte Esterase (Negative) Negative Urine Glucose (Negative) mg/dL Negative Salicylates (<2.8) mg/dL Urine Opiates Screen (Negative) Negative Urine Methadone Screen (Negative) Negative Acetaminophen (10-30) ug/mL Ur Barbiturates Screen (Negative) Negative Ur Tricyclics Screen (Negative) Negative Ur Amphetamines Screen (Negative) Negative U Benzodiazepines Scrn (Negative) Negative Urine Cocaine Screen (Negative) Negative Ur THC Screen (Negative) Negative Ethyl Alcohol (<10) mg/dL < 3.0 Add-On Test Request Range/Units 12/09/22 12/09/22 12/09/22 09:47 09:47 09:47 WBC (4.4-10.8) 10^3/uL 9.36 RBC (4.36-5.78) 10^6/uL 4.79 Hgb (13.5-17.5) g/dL 14.1 Hct (40.0-50.0) % 41.7 MCV (80-95) fL 87 MCH (27.0-33.0) pg 29.4 MCHC (32.0-36.0) % 33.8 RDW (11.8-14.1) % 11.9 Plt Count (130-400) 10^3/uL 241 MPV (8.0-11.0) fL 9.7 Immature Gran % 0.2 Neutrophils % 67.9 Lymphocytes % 26.6 Monocytes % 5.1 Eosinophils % 0.0 Basophils % 0.2 Nucleated RBC % (0.0-0.3) % 0.0 Absolute Neutrophils (1.2-6.7) 10^3/uL 6.35 Absolute Lymphocytes (1.2-3.4) 10^3/uL 2.49 Absolute Monocytes (0.1-0.8) 10^3/uL 0.48 Absolute Eosinophils (0.0-0.7) 10^3/uL 0.00 Absolute Basophils (0.0-0.2) 10^3/uL 0.02 Sodium (136-145) mmol/L Potassium (3.5-5.1) mmol/L Chloride (98-107) mmol/L Carbon Dioxide (21.0-32.0) mmol/L Anion Gap (3-11) mmol/L BUN (7-18) mg/dL Creatinine (0.70-1.30) mg/dL Est GFR (CKD-EPI 2020) (mL/min/1.73m2) Glucose (74-106) mg/dL Calcium (8.5-10.1) mg/dL Total Bilirubin (0.2-1.0) mg/dL AST (15-37) U/L ALT (16-63) U/L Alkaline Phosphatase (46-116) U/L Creatine Kinase (39-308) U/L Troponin I (<or=60) ng/L Cancelled Total Protein (6.4-8.2) g/dL Albumin (3.4-5.0) g/dL TSH (0.36-3.74) uIU/mL Urine Color (Yellow) Urine Clarity (Clear) Urine pH (5-8) Ur Specific [place] (1.005-1.025) Urine Protein (Negative) mg/dL Urine Ketones (Negative) mg/dL Urine Blood (Negative) Urine Nitrite (Negative) Urine Bilirubin (Negative) Urine Urobilinogen (Up TO 0.2) EU/dL Ur Leukocyte Esterase (Negative) Urine Glucose (Negative) mg/dL Salicylates (<2.8) mg/dL 4.4 Urine Opiates Screen (Negative) Urine Methadone Screen (Negative) Acetaminophen (10-30) ug/mL < 2 Ur Barbiturates Screen (Negative) Ur Tricyclics Screen (Negative) Ur Amphetamines Screen (Negative) U Benzodiazepines Scrn (Negative) Urine Cocaine Screen (Negative) Ur THC Screen (Negative) Ethyl Alcohol (<10) mg/dL Add-On Test Request Range/Units 12/09/22 12/09/22 12/09/22 09:47 09:47 13:47 WBC (4.4-10.8) 10^3/uL RBC (4.36-5.78) 10^6/uL Hgb (13.5-17.5) g/dL Hct (40.0-50.0) % MCV (80-95) fL MCH (27.0-33.0) pg MCHC (32.0-36.0) % RDW (11.8-14.1) % Plt Count (130-400) 10^3/uL MPV (8.0-11.0) fL Immature Gran % Neutrophils % Lymphocytes % Monocytes % Eosinophils % Basophils % Nucleated RBC % (0.0-0.3) % Absolute Neutrophils (1.2-6.7) 10^3/uL Absolute Lymphocytes (1.2-3.4) 10^3/uL Absolute Monocytes (0.1-0.8) 10^3/uL Absolute Eosinophils (0.0-0.7) 10^3/uL Absolute Basophils (0.0-0.2) 10^3/uL Sodium (136-145) mmol/L Potassium (3.5-5.1) mmol/L Chloride (98-107) mmol/L Carbon Dioxide (21.0-32.0) mmol/L Anion Gap (3-11) mmol/L BUN (7-18) mg/dL Creatinine (0.70-1.30) mg/dL Est GFR (CKD-EPI 2020) (mL/min/1.73m2) Glucose (74-106) mg/dL Calcium (8.5-10.1) mg/dL Total Bilirubin (0.2-1.0) mg/dL AST (15-37) U/L ALT (16-63) U/L Alkaline Phosphatase (46-116) U/L Creatine Kinase (39-308) U/L 141 Troponin I (<or=60) ng/L Total Protein (6.4-8.2) g/dL Albumin (3.4-5.0) g/dL TSH (0.36-3.74) uIU/mL Urine Color (Yellow) Urine Clarity (Clear) Urine pH (5-8) Ur Specific [place] (1.005-1.025) Urine Protein (Negative) mg/dL Urine Ketones (Negative) mg/dL Urine Blood (Negative) Urine Nitrite (Negative) Urine Bilirubin (Negative) Urine Urobilinogen (Up TO 0.2) EU/dL Ur Leukocyte Esterase (Negative) Urine Glucose (Negative) mg/dL Salicylates (<2.8) mg/dL Urine Opiates Screen (Negative) Urine Methadone Screen (Negative) Acetaminophen (10-30) ug/mL < 2 Ur Barbiturates Screen (Negative) Ur Tricyclics Screen (Negative) Ur Amphetamines Screen (Negative) U Benzodiazepines Scrn (Negative) Urine Cocaine Screen (Negative) Ur THC Screen (Negative) Ethyl Alcohol (<10) mg/dL Add-On Test Request DONE <ESTRELLITA Cheung - Last Filed: 12/21/22 15:22> 42-year-old male presents to the ER with a chief complaint of feeling sad and depressed. He reports that he has not slept in over 24 hours and he also sleeps all the time. He denies any suicidal ideation or doing anything over the last 24 to 48 hours to harm himself however after speaking with his father Andrey to he has been is staying with he reports that since Friday he has been hearing voices on Friday he called police because he thought there was a body in the attic. Police did come there was no body the father states that on Friday they were in court with him for 3 minor warrants they did see the supervisor statement clerks Erica and was released into the custody of his parents. Since Friday he has been taken over by voices per his parents he has not slept he has been standing out on the deck last night because the voices told him to he, his father states he has not eaten has not taken any of his meds because he he took them all. His father states that after 2 weeks he will take all of his meds and he has been confused. He reports that he cannot manage his medications. He also reports that he has been seen at 10 different hospitals for psychiatric needs. Upon further questioning of the parents I did go over his medication list. We will call poison control. Will give him Lorazepam and lisinopril. Work-up ordered including mental health evaluation, labs and UDS, EKG. Upon further questioning with his father he reports that he was prescribed lisinopril on November 20 had 30 tablets and it appears to be half full, he was prescribed quetiapine on November 20 dispense #60 of 200 mg tablets 2 tablets at bedtime which is empty, he was prescribed venlafaxine on 20 November dispense number 30 tablets 150 mg extended release there is 7 left, he was prescribed clonidine 0.2 mg every 12 hours on 20 November #60 which is empty, he was prescribed gabapentin 300 mg 3 times a day on 15 November #6 which is empty, he was prescribed melatonin on November 20 #60 tabs which is empty, he was also prescribed vitamin B tablets on 20 November #30 which appears to be half empty. Concern for cervical overdose and/or clonidine overdose melatonin overdose. [facility] in line of sight of nurses station is contacted by community service organization director. Patient placed in paper scrubs, sitter ordered and is at bedside. 59: EKG shows a QTc of 459, QT 331 See official report. 1001: Poision Control Contacted,They are concerned For Seroquel, Venlafaxine, a nd Clonidine Concern for Seizure, hypotension, and extrapyrymidiaL EFFECTS, Recommend Benzodiazepines, Urinary retention, CN depression with Gabapentin, May have some masked effects due to cocktail. 1010: Poison control recommends, to observe for anticholinergic effects, They recommend case monitor, and observation until symptoms resolve, Repeat Tylenol level in 4 hours. 1042: Spoke with Vania GARCIA who recommends EE, which I agree with. At this time his labs are largely within normal limits, pending salicylate level and Tylenol level, no leukocytosis sodium 138 potassium 3.8 which is within normal limits BUN/creatinine within normal limits GFR 96 glucose is 128. Urinalysis shows 40 ketones negative UDS. 1130: Tylenol salicylate within normal limits, patient is requesting his risperidone and clonidine. 4 mg of Risperdal and 0.2 of clonidine for one-time dose now ordered we will continue to closely monitor his blood pressure and QRS. Blood pressure at this time is 154/111, heart rate 107. 1232: Heart rate is now 107, blood pressure 129/77 O2 sat is 97% on room air. Patient has been calm and cooperative throughout his stay thus far. 1420: BP is currently beginning to be somewhat soft at this time blood pressure is 107/71, heart rate 96, patient is sleeping awakens easily to verbal stimulus. EE paperwork has been filled out at this time. Repeat Tylenol level within normal limits. 1530: Care is to be signed out to oncoming provider Prema HARO pending observation and admission to psychiatric inpatient. Discussed patient case in details with her she verbalized understanding. This text was generated using [employer] dictation system, please disregard any oddities of phrase or misspellings. Care transitioned to myself from Kena Wilde NP. Please see her initial note regarding history, presentation and exam. In brief, patient is a 42 year old male presenting after being sent in by his father for acting erratically and not taking medication as prescribed. Patient evaluated by Dr. Johnson. He does not feel that patient is satisfied by outpatient care or his current medications. He is concerned that the patient is mususing his medication for abuse or secondary gains but not for SI. Patient would prefer voluntary admission. He feels that he does not meet qualification for involuntary admission. States that patients motivation is for medication, feels that he is able to make decision to go voluntarily at this time. Does not feel that he meets the criteria for admission involuntarily. Patient will transition to voluntary status with plan for admission to psychiatric hospital. Patient's been resting comfortably, has sitter at bedside. Contacted by poison control. They did advise a repeat ECG repeat neurologic exam. Otherwise, given the time elapsed they do feel that it safe for them to clear off on the case. Will call with any new developments Reevaluated the patient. He continues to appear slightly fatigued but otherwise his neurologic is intact with no acute deficits. Reflexes are normal. He reports he has been very fatigued and has not been eating or drinking much. His mucous membranes are dry. We will give IV fluids, repeat the ECG as recommended by poison control. Patient continues to be involuntarily admitted with plan for transition to inpatient psychiatric facility. Patient continues to sleep, be cooperative. He remains voluntary for psychiatric placement. At the end of my shift, care transitioned to Dr. Tse with disposition pending. HPI <Kena Wilde NP - Last Filed: 12/09/22 16:50> General Date/Time Provider Initiated Documentation: 12/09/22 09:14 . Related Data Home Medications Medication Instructions Recorded Confirmed lisinopril 20 mg tablet 20 mg PO DAILY 06/05/22 12/09/22 clonidine HCl 0.2 mg tablet 0.2 mg PO Q12H PRN 12/04/22 12/09/22 gabapentin 300 mg capsule 300 mg PO TID 12/04/22 12/09/22 hydroxyzine pamoate 50 mg capsule 50 mg PO QID PRN itching #30 caps 12/04/22 12/09/22 (Vistaril) melatonin 3 mg capsule 6 mg PO HS PRN 12/04/22 12/09/22 quetiapine 200 mg tablet (Seroquel) 400 mg PO QHS #60 tabs 12/04/22 12/09/22 risperidone 4 mg tablet (Risperdal) 4 mg PO BID #4 tabs 12/04/22 12/09/22 venlafaxine 150 mg 150 mg PO DAILY #4 caps 12/04/22 12/09/22 capsule,extended release 24 hr Previous Rx's Medication Instructions Recorded hydroxyzine pamoate 50 mg capsule 50 mg PO QID PRN itching #30 caps 12/04/22 (Vistaril) quetiapine 200 mg tablet (Seroquel) 400 mg PO QHS #60 tabs 12/04/22 risperidone 4 mg tablet (Risperdal) 4 mg PO BID #4 tabs 12/04/22 venlafaxine 150 mg 150 mg PO DAILY #4 caps 12/04/22 capsule,extended release 24 hr Allergies Allergy/AdvReac Type Severity Reaction Status Date / Time No Known Allergies Allergy Verified 12/09/22 09:23 General Stated Complaint: PsychEval PACO: 2 Review of Systems <Kena Wilde NP - Last Filed: 12/09/22 16:50> All systems reviewed & are unremarkable except as noted in HPI and below Constitutional Constitutional: Reports as per HPI and Denies headache(s) ENT Ears, Nose, Mouth, and Throat: Denies headache(s) Cardiovascular Cardiovascular: Denies chest pain and Denies dyspnea Respiratory Respiratory: Denies dyspnea Gastrointestinal Gastrointestinal: Denies abdominal pain, Denies diarrhea, Denies nausea and Denies vomiting Neurologic Neurologic: Denies abnormal movements, Reports behavioral changes, Reports confusion, Denies headache(s), Denies localized weakness, Denies convulsions, Denies paresthesias and Reports tremor(s) (Mild) Psychiatric Psychiatric: Reports as per HPI, Reports abnormal sleep pattern, Reports anxiety, Reports behavioral changes, Reports confusion, Reports depression, Reports auditory hallucinations, Reports hallucinations, Denies homicidal ideation and Denies suicidal ideation PFSH <Kena Wilde NP - Last Filed: 12/09/22 16:50> All Active Problems Anxiety (Chronic) Opioid dependence in remission (Chronic) Polysubstance abuse (Chronic) Alcohol withdrawal (Acute) Alcohol abuse (Chronic) Depression with anxiety (Acute) Acute opioid withdrawal (Acute) Diarrhea (Acute) Tobacco abuse (Acute 11/19/17) 1/2 ppd HFrEF (heart failure with reduced ejection fraction) (Acute) Anxiety (Chronic 09/05/17) Medical History ADD (attention deficit disorder) Cardiomyopathy Closed right ankle fracture (~09/2019) Depression with suicidal ideation Hospitalized at [facility] psych 02/15-02/26/22. Erectile dysfunction (10/03/17) Gynecomastia, male (03/11/18) secondary to methadone Hyperglycemia (09/05/17) Hyperprolactinemia (04/15/18) Hypertension Hypogonadism, male (03/24/18) Pending appt with Dr. Charles at [facility] in [place] Methadone dependence (04/01/18) [facility]SELA in [facility] Hx intranasal and oral use of opioids. Meets with therapist twice monthly; has had take-home in the past. QT prolongation Surgical History S/P hernia repair Family History Mother Diabetes Cancer thyroid cancer Father Diabetes Essential hypertension Paternal Grandfather No problems noted. Maternal Grandfather Stroke Paternal Uncle Cancer stomach cancer Other Family history of diabetes mellitus (DM) Social History Smoking/Tobacco Use Status: Current every day Tobacco Type: cigarettes Quit status: considering quitting Counseling given: provider counseling Smoking risk assessment performed?: Yes Alcohol Intake: former Year quit: 2021 Counseling given: Yes Drug use: Current Sobriety Substance use type: does not use and marijuana Counseling provided: treatment program Household members: family Housing: other Details: living with his father Number of Children: 1 Education Level: high school 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 Appears stated age. Normal body habitus. Head: Normocephalic, no trauma. Eyes: Round, equal reactive, 5 mm bilaterally and sluggish, Red reflex noted, EOM's intact. Eyelids symmetrical without lesions, discharge, or swelling. ENT: Bilateral TM's WNL, External ear normal to inspection, no mastoid TTP, swelling, or erythema, Nasal turbinates WNL, no nasal discharge. Normal dentition, Posterior pharynx WNL, no exudate. Dry mucous membranes Chest: Sinus tachycardia hypertensive upon arrival, Normal S1, S2, distal pulses intact. Resp: Lungs clear to auscultation bilaterally, no wheezes, rales, or rhonchi. Abdomen: Soft, non-distended, Normoactive bowel sounds all 4 quads. Musculoskeletal: Normal gait, 5/5 strength to all four extremities. Skin: No suspicious rashes or lesions. Capillary refill less than 2 sec. Neurologic: Cranial nerves II-XII intact. Alert and oriented x 3. Motor: No deficits noted. Sensory: Intact bilaterally all 4 extremities. Reflexes: DTR's intact bilaterally.. Mild intention tremor to bilateral upper extremities noted. Psychiatric: See below Hematologic/Lymphatic: No ecchymosis, no lymphadenopathy. Psych Appearance: well kempt Speech and Movement: delayed speech and slowed movement Mood: anxious mood and labile mood Affect: labile affect and blunted Attitude: cooperative Thought Process: loose association Thought Content: hallucinations auditory and suicidality Insight: limited Judgment: limited Course <Kena Wilde NP - Last Filed: 12/09/22 16:50> Vital Signs Vital signs: Vital Signs Temperature 36.6 C 12/09/22 09:20 Pulse 125 H 12/09/22 09:20 Respiratory Rate 18 12/09/22 09:20 Blood Pressure 170/109 H 12/09/22 09:20 Pulse Oximetry 96 12/09/22 09:20 Temperature 36.6 C 12/09/22 09:20 Temperature Source Oral 12/09/22 09:20 Pulse 125 H 12/09/22 09:20 Respiratory Rate 18 12/09/22 09:20 Respiratory Effort Normal, Non-Labored 12/09/22 09:25 Blood Pressure 170/109 H 12/09/22 09:20 Pulse Oximetry 96 12/09/22 09:20 Pain Level 0 12/09/22 09:20 Critical Care Time <Kena Wilde NP - Last Filed: 12/09/22 16:50> Critical Care Time Critical Care Time: Yes Total Critical Care Time: 60 Attestation: I spent greater than 35 minutes addressing this patient's acute life threatening illness. This time was spent engaged in actions directly related to the p atient's care. Failure to initiate these interventions would have likely resulted in clinically significant or life threatening deterioration in the patients condition. Sign Out <Kena Wilde NP - Last Filed: 12/09/22 16:50> Sign Out Data: Sign Out Comment: Patient is EE'd, auditory hallucinations, Pending second certification and inpatient psychiatric placement versus admission for possible overdose however of Seroquel and Clonidine and observation. Patient has eaten a meal here, he is drinking fluids without difficulty he is remained calm and cooperative, sleeping awakens easily to verbal stimulus. Has received Lorazepam 1mg, Lisinopril 20mg, risperidone 4 mg and 0.2 mg of clonidine. Last updated by Kena Wilde NP at 12/09/22 16:02 Sign Out Comment: Care transitioned to Dr. Tse. Here after overuse of psychiatric medications. Seeking voluntary placement for increased depression. Pending bed placement. In stable condition. Last updated by Prema Soria PA at 12/10/22 00:03 Sign Out Comment: this is a medically cleared voluntary patient with no active behavioral issues. Last updated by Diego Redman MD at 12/10/22 20:09 Sign Out Comment: No issues through material handler 1st shift, awaits placement Last updated by Rigoberto Abernathy MD at 12/11/22 06:46
[2022-12-09 09:52] LABS: Abs Immature Grans 0.02 10^3/uL (0.0-0.06); Absolute Basophil Count 0.02 10^3/uL (0.0-0.2); Absolute Lymphocyte Count 2.49 10^3/uL (1.2-3.4); Absolute Monocyte Count 0.48 10^3/uL (0.1-0.8); Absolute Neutrophil Count 6.35 10^3/uL (1.2-6.7); Basophils % 0.2; HCT 41.7 % (40.0-50.0); HGB 14.1 g/dL (13.5-17.5); Immature Grans % 0.2; Lymphocytes % 26.6; MCH 29.4 pg (27.0-33.0); MCHC 33.8 % (32.0-36.0); MCV 87 fL (80-95); MPV 9.7 fL (8.0-11.0); Monocytes % 5.1; Neutrophils % 67.9; Platelet Count 241 10^3/uL (130-400); RBC 4.79 10^6/uL (4.36-5.78); RDW 11.9 % (11.8-14.1); RDW-SD 38.6 fL; WBC 9.36 10^3/uL (4.4-10.8)
[2022-12-09] MEDS: Lisinopril 10 MG TAB 20 MG PO (10:09)
[2022-12-09] MEDS: LORazepam 1 MG TAB PO (10:10)
[2022-12-09 10:11] LABS: Bilirubin Negative (Negative); Blood Negative (Negative); Clarity Clear (Clear); Glucose Negative (Negative); Ketones 40 mg/dL (Negative); Leukocyte Esterase Negative (Negative); Nitrite Negative (Negative); Urobilinogen 0.2 EU/dL (Up TO 0.2); pH 5.5 (5-8)
--- NOTE | 2022-12-09 10:12 | NUR.NOTE ---
Nursing Note: Andrey Pineda, father; . He is on the HIPPA form.
[2022-12-09 10:15] LABS: *AMPHETAMINES SCREEN URINE Negative (Negative); *BARBITURATES SCREEN URINE Negative (Negative); *BENZODIAZEPINES SCREEN URINE Negative (Negative); Cannabinoids THC Negative (Negative); Cocaine Screen,Urine Negative (Negative); METHADONE URINE SCREEN Negative (Negative); OPIATES URINE SCREEN Negative (Negative)
[2022-12-09 10:16] LABS: Tricyclic Antidepressants Negative (Negative)
[2022-12-09 10:22] LABS: ALT 44 U/L (16-63); AST 18 U/L (15-37); Albumin 4.6 g/dL (3.4-5.0); Alkaline Phosphatase 99 U/L (46-116); Anion Gap 9.4 mmol/L (3-11); BUN 12 mg/dL (7-18); Bilirubin, Total 0.4 mg/dL (0.2-1.0); CO2 28.6 mmol/L (21.0-32.0); Calcium 10.1 mg/dL (8.5-10.1); Chloride 100 mmol/L (98-107); ETHANOL BLOOD < 3.0 mg/dL (<10); Estimated GFR 96.37 (mL/min/1.73m2); Glucose 128 mg/dL (74-106); Potassium 3.8 mmol/L (3.5-5.1); Sodium 138 mmol/L (136-145); TSH (W/Ref FT4) 1.74 uIU/mL (0.36-3.74); Troponin I < 50 ng/L (<or=60)
[2022-12-09 10:28] LABS: Acetaminophen < 2 ug/mL (10-30); Salicylate 4.4 mg/dL (<2.8)
[2022-12-09 10:30] LABS: Lab Add On Test DONE
[2022-12-09 10:46] LABS: Creatine Kinase 141 U/L (39-308)
[2022-12-09] MEDS: risperiDONE 1 MG TAB 4 MG PO (11:38)
[2022-12-09] MEDS: cloNIDine 0.1 MG TAB 0.2 MG PO (11:38)
--- NOTE | 2022-12-09 13:14 | NUR.NOTE ---
poison control recommends observation for 12 hours, if pt remains free of tachycardia, HTN and tremors then he will be considered medically cleared. provider aware
--- NOTE | 2022-12-09 13:49 | PDOC.MHCN ---
Date of service: 12/09/22 Time of Service: 10:45 PHQ-9 Over the last 2 weeks, how often have you been bothered by any of the following problems? 1. Little interest or pleasure in doing things: nearly every day 2. Feeling down, depressed, or hopeless: nearly every day 3. Trouble falling or staying asleep, or sleeping too much: not at all 4. Feeling tired or having little energy: nearly every day 5. Poor appetite or overeating: nearly every day 6. Feeling bad about yourself - or that you are a failure or have let yourself and your family down: several days 7. Trouble concentrating on things, such as reading the newspaper or watching television: nearly every day 8. Moving or speaking so slowly that other people could have noticed? - Or the opposite - being so fidgety or restless that you have been moving around a lot more than usual: more than half the days 9. Thoughts that you would be better off or of hurting yourself in some way: not at all Total score: 18 If you checked off any problems, how difficult have these problems made it for you to do your work, take care of things at home, or get along with other people?: somewhat difficult PHQ-9 Results: Positive Source: Developed by Drs. Jamie Gustafson, Violeta Sorenson, Perry Dwyer and colleagues, with an educational didi from [employer]. Suicide Severity Rate CSSRS Have you wished you were or wished you could go to sleep and not wake up?: Yes Have you actually had any thoughts of killing yourself?: Yes CSSRS2 Have you been thinking about how you might do this?: Yes Have you had these thoughts and had some intention of acting on them?: Yes Have you started to work out or worked out the details of how to kill yourself? Do you intend to carry out this plan?: No CSSRS3 Have you ever done anything, started to do anything or prepared to do anything to end your life?: No CSSRS4 Was this within the past three months?: No Screening Score Total Score: 4 Screening: Positive Mental Health Emergency Note Release HS release signed:: Yes Reason for Visit Dangelo presented to [facility] for the second time today, 12/09. Dangelo is dysregulated and reports needing help with his medications. Dangelo is also extremely paranoid. In the last 2 weeks has the pt presented for ES prior to today?: Yes, presented at [facility] ED Client Information Client is: Adult Outpatient Well Housed: Yes Non Suicidal Self Injury Current: No History: No Safety Risk/Harm to Self or Others Current Ideation to Harm Self or Others: Yes to self. (Dangelo reports previous fleeting suicidal ideation. With plan to cut his wrist and throat via knife.) Intent: no, has no intent. Plan: yes,has a plan. History of suicide attempt: No history of suicide attempt reported Risk: Does risk to harm exist?: yes. Access to means: No. Risk: Low Risk Duty to warn indicated: No Asssessment/Mental Status Appearance: Disheveled and Poor hygiene Attitude: Cooperative Behavior: Unremarkable Speech: Normal Affect: Flat and Cogruent with mood Mood: Sad, Stressed, Anxious and Irritable Thought process: Circumstational and Poverty of content Hallucinations: No evidence Delusions: yes, Persectory/Paranoid and Grandiose Attention: Unremarkable Perception: Not impaired Orientation: Fully orientated Memory: Intact Insight: Poor Judgement: Poor Neurovegetative Symptoms Sleep: Decrease (Dangelo reports that he has not slept in 30+ hours.) Appetitie: Decrease (Dangelo reports not eating a meal recently.) Interests: Decrease Energy: Decrease Libido: Not applicable Substance Use: Do you use nicotine?: Yes Have you used substances in the last 7 days?: No Additional Issues: Assaultive/Threatening Behavior: No Medical Concerns: No Client engaged in active self harm w/weapon: No Threatening to run away: No Child reported abuse/neglect: No Voluntarily presenting for services: Yes Domestic violence is a concern: No Extreme Psychosis or extreme behavior is present: Yes Impression Dangelo presented to [facility] today, 12/09, around 745 this morning; but when the hospital attempted to triage him he refused treatment and was discharged. Dangelo?s father Andrey, reports that Dangelo stood outside [facility] waiting for the police to come arrest him for the multiple murders he thinks he committed. Per Dangelo?s fathers no murders took place. Andrey also reports that Dangelo called 911 last Friday due to him thinking there were bodies in their attic. Per Andrey?s report, [employer] Tro[employer]ers came and cleared the house and prior to their arrival KALEB Gifford spoke to Dangelo on the phone. Dangelo re presented to the emergency room around 945am. This continuity writer assessed Dangelo via Zoom. Dangelo presents disheveled, with unkempt hair and martinez, reports his mood as, ?very very very sad and scared?. Dangelo also reports he has not slept in 30+ hours and has not eaten a meal recently. Dangelo reports he is not currently endorsing suicidal or homicidal ideation but is feeling extremely paranoid. Dangelo also disclosed that he only takes his medications as prescribed, sometimes. ? Dangelo presents extremely dysregulated, poor insight and judgment, Dangelo is answering the screening tools then processing and changing his answers. Dangelo cannot make a sound decision and is reporting he is not willing to go to the hospital voluntarily. At this time, Dangelo remains a risk to himself and others by not properly caring for himself and his continued state of paranoia. It is important to note, this continuity writer consulted with head medical coding instructor at [facility] Dr. Boris Johnson. ? Plan/Disposition Recommended Disposition: Hospitalization (Waiting for psychians piece of EE.) No. Plan: Dangelo will remain at [facility] until seen by a psychiatrist from [facility]. Psychiatrist will decide if Dangelo will be held involuntarily. Person reported agreement to plan: No Reports/communication Outcome discussed with: ED/Personnel
--- NOTE | 2022-12-09 13:51 | NUR.NOTE ---
pt arousable to touch. hypotensive when sleeping, normotensive while awake. provider aware. respirations even and unlabored. sitter at bedside, continuous monitoring in place.
[2022-12-09 14:22] LABS: Acetaminophen < 2 ug/mL (10-30)
--- NOTE | 2022-12-09 15:33 | PDOC.CMSAFED ---
- If Service Date Differs Date of service: 12/09/22 Time of Service: 15:36 Care Management Safety Plan Status: Involuntary - Reason for Wait Reason for Wait: Inpatient Admission VOLUNTARY FOR INPATIENT PSYCHIATRIC STABILIZATION. Patient is appropriate in all interactions since arriving at [facility]; Pt has demonstrated appropriate coping and communication skills, has articulated his or her needs and concerns and is fully engaged during staff interactions. Safety plan has been established with patient, and care team, to adhere to patient goals, identify restrictions based on behavioral status, address nutrition, and determine allowed personal belongings, tools for hygiene and personal care. Determine level of activity including ambulation, level of supervision, visitors, and determine privileges based on behaviors and level of engagement by pt. SAFETY PLAN: 1. Will remain on suicide precautions. In Paper Clothes 2. Will remain in room under direct supervision of one-on-one staff at all times provided by [employer], CHANGE MANAGEMENT, MOHS SURGEON/GENERAL DERMATOLOGIST clinical social work therapist. 3. May have paper cups, plates, finger foods as well as a cardboard spoon with which to eat meals. 4. Follow [facility] Management of the Admitted Behavioral Health Patient policy. 5. Shower permitted with escort at RN discretion. 6. No personal belongings-soft items permitted at RN discretion. 7. Visitors-none at this time. 8. Activities: soft cart items, music tablet, television and other activities at RN discretion. 9. Bathroom privileges with escort in the ED, available in room without limitation on M/S. 10. Phone: contact limited to family at this time, via [employer] hospital phone at RN discretion. 11. Due to VOLUNTARY status, if patient wishes to leave [facility], staff will contact [facility] Crisis Screener ([phone]) and On-Call Compliance Nurse ([phone]) as soon as possible. In the event of elopement, notify [place] [employer] Police ([phone]). Patient is currently voluntarily at [facility] and seeking inpatient admission when a bed becomes available. [facility] Frontline Plate And Weld Inspector will continue seeking placement. Please contact the Major Gifts Manager Compliance Nurse ([phone]) and [facility] Plate And Weld Inspector ([phone]) for any needed changes in the Safety Plan. Safety plan has been provided to interdepartmental care team.
--- NOTE | 2022-12-09 19:35 | NUR.NOTE ---
Nursing Note: Spoke with [facility] - Refusing acceptance of PT, due to capacity and acuity of PT - info relayed to provider BP - EOR [facility] 12/09/221934
--- NOTE | 2022-12-09 20:45 | RT.EKG_ITS ---
APPROVED REPORT Exam: Resting ECG Reason for Exam: OD Patient Location: E HR:105 bpm ECG Measurements Heart Rate 105 AXIS AK 134 P -3 QRSd 95 QRS -5 QT 377 T 145 QTc 500 Conclusion Sinus tachycardia...rate> 99 Abnrm T, consider ischemia, anterolateral lds...T <-0.20mV, I aVL V2-V6. Sinus. T wave inversions anterolateral leads, no change from previous. No STEMI. I have reviewed and interpreted ECG and agree with software generated interpretation.
[2022-12-09] MEDS: Lactated Ringers 1,000 ML 1000 ML IV (21:36)
[2022-12-10] VITALS (32 sets, daily range): BP systolic 106–140; BP diastolic 68–98; PULSE 67–112; RESP 7–26; O2SAT 93–99
--- NOTE | 2022-12-10 04:06 | NUR.NOTE ---
MD Dedrick called and asked if pt requires VS monitoring. Per MD pt no longer requires monitoring.
--- NOTE | 2022-12-10 06:03 | NUR.NOTE ---
Spoke with Shari from [facility] and verified pt's dosage and admin time. Per her Mr. Pineda takes 20mg suboxone strip once daily with last dose 12/09/22 @0627. MD Dedrick made aware. New ords received.
[2022-12-10] MEDS: Buprenorphine/Naloxone 8 mg/2 mg FILM 1 EACH SL ×2 (06:34→11:28)
[2022-12-10] MEDS: Buprenorphine/Naloxone 12 mg/3 mg FILM 1 EACH SL ×2 (06:34→11:28)
--- NOTE | 2022-12-10 08:05 | ED.PROG_ITS ---
Date of service: 12/10/22 Time of Service: 19:29 Medical Decision Making I received signout on this medically cleared 42-year-old patient who is voluntary in the setting of depression. Patient's has not had any active behavioral issues last shift. Will update documentation as clinically warranted. 8:40 AM Patient was reportedly becoming agitated for which I ordered him 1 mg of oral lorazepam. 7:30 PM Patient requested his home medications. His nurse completed med reconciliation. ESTRELLITA Sebastian assisted by ordering the patient's home clonidine and Risperidone. He is on outpatient lisinopril however he is not markedly hypertensive at the moment so we will defer this medication at that time. We will also hold gabapentin at this point time quetiapine, and venlafaxine. Sign Out Sign Out Data: Sign Out Comment: Patient is EE'd, auditory hallucinations, Pending second certification and inpatient psychiatric placement versus admission for possible overdose however of Seroquel and Clonidine and observation. Patient has eaten a meal here, he is drinking fluids without difficulty he is remained calm and cooperative, sleeping awakens easily to verbal stimulus. Has received Lorazepam 1mg, Lisinopril 20mg, risperidone 4 mg and 0.2 mg of clonidine. Last updated by Kena Wilde NP at 12/09/22 16:02 Sign Out Comment: Care transitioned to Dr. Tse. Here after overuse of psychiatric medications. Seeking voluntary placement for increased depression. Pending bed placement. In stable condition. Last updated by Prema Soria PA at 12/10/22 00:03 Discharge Plan Discharge Details Chief Complaint: PsychEval Primary Care Provider: Sophia Kelsey ED Provider: Diego Redman Home Meds and New Rx's Prescriptions: No Action lisinopril 20 mg tablet 20 mg PO DAILY Patient Comments: 12/09 - pt states he should be taking but doesnt clonidine HCl 0.2 mg tablet 0.2 mg PO Q12H PRN Rx Instructions: Last RX'd by Patricia Olmedo October 2022 venlafaxine 150 mg capsule,extended release 24hr 150 mg PO DAILY Qty: 4 0RF Rx Instructions: Last Rx'd by Patricia Olmedo melatonin 3 mg capsule 6 mg PO HS PRN Rx Instructions: Last RX'd by [facility]. hydroxyzine pamoate [Vistaril] 50 mg capsule 50 mg PO QID PRN (Reason: itching) Qty: 30 0RF Rx Instructions: Last RX'd by Patricia [facility] 11/19/22. -hb gabapentin 300 mg capsule 300 mg PO TID Rx Instructions: Last RX'd by Patricia [facility] on 11/19/2022. -hb risperidone [Risperdal] 4 mg tablet 4 mg PO BID Qty: 4 0RF Rx Instructions: Last RX'd by Patricia [facility] on 11/19/22. -hb quetiapine [Seroquel] 200 mg tablet 400 mg PO QHS Qty: 60 0RF Rx Instructions: Last RX'd by Patricia [facility] on 11/19/2022.
[2022-12-10] MEDS: LORazepam 1 MG TAB (08:39)
--- NOTE | 2022-12-10 14:10 | PDOC.CMSAFED ---
- If Service Date Differs Date of service: 12/10/22 Time of Service: 14:10 Care Management Safety Plan Status: Voluntary - Reason for Wait Reason for Wait: Inpatient Admission VOLUNTARY FOR INPATIENT PSYCHIATRIC STABILIZATION. Patient is appropriate in all interactions since arriving at [facility]; Pt has demonstrated appropriate coping and communication skills, has articulated his or her needs and concerns and is fully engaged during staff interactions. Safety plan has been established with patient, and care team, to adhere to patient goals, identify restrictions based on behavioral status, address nutrition, and determine allowed personal belongings, tools for hygiene and personal care. Determine level of activity including ambulation, level of supervision, visitors, and determine privileges based on behaviors and level of engagement by pt. SAFETY PLAN: 1. Will remain on suicide precautions. In Paper Clothes 2. Will remain in room under direct supervision of one-on-one staff at all times provided by [employer], HULL OUTFIT SUPERVISOR, CASTING ROOM OPERATOR tool engine lathe set up operator. 3. May have paper cups, plates, finger foods as well as a cardboard spoon with which to eat meals. 4. Follow [facility] Management of the Admitted Behavioral Health Patient policy. 5. Shower permitted with escort at RN discretion. 6. No personal belongings-soft items permitted at RN discretion. 7. Visitors-none at this time. 8. Activities: soft cart items, music tablet, television and other activities at RN discretion. 9. Bathroom privileges with escort in the ED, available in room without limitation on M/S. 10. Phone: contact limited to family at this time, via [employer] hospital phone at RN discretion. 11. Due to VOLUNTARY status, if patient wishes to leave [facility], staff will contact [facility] Crisis Screener ([phone]) and On-Call Manufacturing Engineering Intern ([phone]) as soon as possible. In the event of elopement, notify [place] [employer] Police ([phone]). Patient is currently voluntarily at [facility] and seeking inpatient admission when a bed becomes available. [facility] Frontline Airplane Patroller will continue seeking placement. Please contact the Health Management Consultant Manufacturing Engineering Intern ([phone]) and [facility] Airplane Patroller ([phone]) for any needed changes in the Safety Plan. Safety plan has been provided to interdepartmental care team.
--- NOTE | 2022-12-10 15:53 | PDOC.MHPN2 ---
Date of service: 12/10/22 Time of Service: 15:53 PHQ-9 Over the last 2 weeks, how often have you been bothered by any of the following problems? 1. Little interest or pleasure in doing things: nearly every day 2. Feeling down, depressed, or hopeless: nearly every day 3. Trouble falling or staying asleep, or sleeping too much: not at all 4. Feeling tired or having little energy: nearly every day 5. Poor appetite or overeating: nearly every day 6. Feeling bad about yourself - or that you are a failure or have let yourself and your family down: several days 7. Trouble concentrating on things, such as reading the newspaper or watching television: nearly every day 8. Moving or speaking so slowly that other people could have noticed? - Or the opposite - being so fidgety or restless that you have been moving around a lot more than usual: more than half the days 9. Thoughts that you would be better off or of hurting yourself in some way: not at all Total score: 18 If you checked off any problems, how difficult have these problems made it for you to do your work, take care of things at home, or get along with other people?: somewhat difficult PHQ-9 Results: Positive Source: Developed by Drs. Jamie Gustafosn, Violeta Sorenson, Perry Dwyer and colleagues, with an educational didi from [employer]. Suicide Severity Rate CSSRS Have you wished you were or wished you could go to sleep and not wake up?: Yes Have you actually had any thoughts of killing yourself?: Yes CSSRS2 Have you been thinking about how you might do this?: Yes Have you had these thoughts and had some intention of acting on them?: Yes Have you started to work out or worked out the details of how to kill yourself? Do you intend to carry out this plan?: No CSSRS3 Have you ever done anything, started to do anything or prepared to do anything to end your life?: No CSSRS4 Was this within the past three months?: No Screening Score Total Score: 4 Screening: Positive Mental Health Emergency Note Release HS release signed:: Yes Reason for Visit Client came to the ED on 12.09.2022 at approximately 7:45am and then discharged because he would not allow nursing to triage him. He returned at 9:45 after standing in the parking lot reportedly waiting for police to arrest him for multiple murders that never took place. [facility] at [facility] so an EE was completed by KALEB Villareal. The second certification did not pass. In the last 2 weeks has the pt presented for ES prior to today?: Yes, presented at [facility] ED Client Information Client is: Adult Outpatient Well Housed: Yes Non Suicidal Self Injury Current: No History: No Safety Risk/Harm to Self or Others Current Ideation to Harm Self or Others: No Risk: Does risk to harm exist?: yes. Access to means: No. Risk: Moderate Risk Duty to warn indicated: No Asssessment/Mental Status Appearance: Poor hygiene Attitude: Other (preoccupied with delusions. ) Behavior: Agitated Speech: Normal Affect: Flat Mood: Stressed and Irritable Thought process: Tangential Hallucinations: No Delusions: yes, Persectory/Paranoid Attention: Wandering Perception: Derealization Orientation: Disoriented in Situation Memory: Intact Insight: Fair Judgement: Poor Neurovegetative Symptoms Sleep: Decrease Appetitie: No change Interests: No change Energy: No change Libido: Not applicable Substance Use: Do you use nicotine?: Yes Have you used substances in the last 7 days?: No Additional Issues: Assaultive/Threatening Behavior: No Medical Concerns: No Client engaged in active self harm w/weapon: No Threatening to run away: No Child reported abuse/neglect: No Voluntarily presenting for services: Yes Domestic violence is a concern: No Extreme Psychosis or extreme behavior is present: Yes Impression Client is a 42 year old single, male who resides with his father in [facility] per a court order for 19/05 supervision. Client is not employed. He presents sitting on his bed when this clinician arrived stating over and over his worry about being arrested and that police were on their way to arrest him. He can not identify why they might be arresting him today although on 12.09 he shared that it was because of all the murders he committed. Client became agitated at his coffee and was observed on one occasion screaming at his coffee as if there was another person there. Client self reports poor sleep but good appetitive. He is diagnosed with ADHD and CHARLES per chart review. However, at this time he appears to be experiencing some sort of psychosis. He has had numerous hospitalizations and has been consistently inconsistent with follow up out patient treatment. Protective factors were not explored in detail however, living with his father is one. Plan/Disposition Recommended Disposition: Hospitalization facilities contacted. Plan: Client will remain at [facility] pending placement. He will be reassessed daily until placement is found or he is able to safely safety plan home. Person reported agreement to plan: Yes Facilities contacted if Applicable [facility] Not accepted, No bed available [facility] Not accepted, No bed available [facility] Not accepted, Other (Hospital did not call back. ), [facility] Not accepted, Other (Declined due to acuity. ) Reports/communication Outcome discussed with: ED/Personnel
[2022-12-10] MEDS: Gabapentin 300 MG CAP PO (19:56)
[2022-12-10] MEDS: risperiDONE 1 MG TAB 4 MG PO (19:56)
[2022-12-10] MEDS: hydrOXYzine HCL 50 MG TAB PO (19:57)
[2022-12-11] MEDS: Buprenorphine/Naloxone 12 mg/3 mg FILM 1 EACH SL (05:46)
[2022-12-11] MEDS: Buprenorphine/Naloxone 8 mg/2 mg FILM 1 EACH SL (05:46)
[2022-12-11] MEDS: cloNIDine 0.1 MG TAB 0.2 MG PO ×2 (06:24→14:39)
[2022-12-11] MEDS: Gabapentin 300 MG CAP PO ×2 (08:29→14:39)
[2022-12-11] MEDS: Venlafaxine 150 MG CAPCR PO (08:30)
[2022-12-11] MEDS: Lisinopril 20 MG TAB PO (08:30)
[2022-12-11] MEDS: hydrOXYzine HCL 25 MG TAB 50 MG PO ×2 (08:30→12:18)
--- NOTE | 2022-12-11 08:30 | NUR.NOTE ---
Nursing Note: patient refusing seroquel and risperidone because the voices are telling [him] not to . patient is pacing room and stating he wants to kill god, he is also saying the price clerk are going to murder him and that they are in the ceiling. unable to redirect patient.
--- NOTE | 2022-12-11 08:35 | W.EDPROG ---
Date of service: 12/11/22 Time of Service: 13:50 Medical Decision Making I received signout on this voluntary 42-year-old male with no active behavioral issues last shift. At the start of my shift patient was reportedly pacing in his room in the emergency department. He is refusing to take his medications. We will continue to the patient determine whether or not he requires intramuscular medications while he awaits placement. 1:50 PM I spoke with Dr. Bhatt from [facility] to complete doc to doc. We will sign transfer paperwork. Sign Out Sign Out Data: Sign Out Comment: Patient is EE'd, auditory hallucinations, Pending second certification and inpatient psychiatric placement versus admission for possible overdose however of Seroquel and Clonidine and observation. Patient has eaten a meal here, he is drinking fluids without difficulty he is remained calm and cooperative, sleeping awakens easily to verbal stimulus. Has received Lorazepam 1mg, Lisinopril 20mg, risperidone 4 mg and 0.2 mg of clonidine. Last updated by Kena Wilde NP at 12/09/22 16:02 Sign Out Comment: Care transitioned to Dr. Tse. Here after overuse of psychiatric medications. Seeking voluntary placement for increased depression. Pending bed placement. In stable condition. Last updated by Prema Soria PA at 12/10/22 00:03 Sign Out Comment: this is a medically cleared voluntary patient with no active behavioral issues. 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, awaits placement Last updated by Rigoberto Abernathy MD at 12/11/22 06:46 Discharge Plan Discharge Details Chief Complaint: PsychEval Primary Care Provider: Sophia Kelsey ED Provider: Diego Redman Home Meds and New Rx's Prescriptions: No Action lisinopril 20 mg tablet 20 mg PO DAILY Patient Comments: 12/09 - pt states he should be taking but doesnt clonidine HCl 0.2 mg tablet 0.2 mg PO Q12H PRN Rx Instructions: Last RX'd by [facility] October 2022 venlafaxine 150 mg capsule,extended release 24hr 150 mg PO DAILY Qty: 4 0RF Rx Instructions: [facility] melatonin 3 mg capsule 6 mg PO HS PRN Rx Instructions: Last RX'd by Patricia [facility]. hydroxyzine pamoate [Vistaril] 50 mg capsule 50 mg PO QID PRN (Reason: itching) Qty: 30 0RF Rx Instructions: Last RX'd by Patricia Aceitunas 11/19/22. -hb gabapentin 300 mg capsule 300 mg PO TID Rx Instructions: Last RX'd by Patricia Aceitunas on 11/19/2022. -hb risperidone [Risperdal] 4 mg tablet 4 mg PO BID Qty: 4 0RF Rx Instructions: Last RX'd by Patricia Aceitunas on 11/19/22. -hb quetiapine [Seroquel] 200 mg tablet 400 mg PO QHS Qty: 60 0RF Rx Instructions: Last RX'd by Patricia Aceitunas on 11/19/2022.
[2022-12-11] MEDS: LORazepam 1 MG TAB ×2 (08:52→14:39)
[2022-12-11] MEDS: risperiDONE 1 MG TAB 4 MG PO (08:54)
--- NOTE | 2022-12-11 12:16 | MHPN_ITS ---
Date of service: 12/11/22 Time of Service: 12:16 PHQ-9 Over the last 2 weeks, how often have you been bothered by any of the following problems? 1. Little interest or pleasure in doing things: nearly every day 2. Feeling down, depressed, or hopeless: nearly every day 3. Trouble falling or staying asleep, or sleeping too much: not at all 4. Feeling tired or having little energy: nearly every day 5. Poor appetite or overeating: nearly every day 6. Feeling bad about yourself - or that you are a failure or have let yourself and your family down: several days 7. Trouble concentrating on things, such as reading the newspaper or watching television: nearly every day 8. Moving or speaking so slowly that other people could have noticed? - Or the opposite - being so fidgety or restless that you have been moving around a lot more than usual: more than half the days 9. Thoughts that you would be better off or of hurting yourself in some way: not at all Total score: 18 If you checked off any problems, how difficult have these problems made it for you to do your work, take care of things at home, or get along with other people?: somewhat difficult PHQ-9 Results: Positive Source: Developed by Drs. Jamie Gustafson, Violeta Sorenson, Perry Dwyer and colleagues, with an educational didi from [employer]. Suicide Severity Rate CSSRS Have you wished you were or wished you could go to sleep and not wake up?: Yes Have you actually had any thoughts of killing yourself?: Yes CSSRS2 Have you been thinking about how you might do this?: Yes Have you had these thoughts and had some intention of acting on them?: Yes Have you started to work out or worked out the details of how to kill yourself? Do you intend to carry out this plan?: No CSSRS3 Have you ever done anything, started to do anything or prepared to do anything to end your life?: No CSSRS4 Was this within the past three months?: No Screening Score Total Score: 4 Screening: Positive Mental Health Emergency Note Release [facility] release signed:: Yes Reason for Visit Client came to the ED on 12.09.2022 at approximately 7:45am and then discharged because he would not allow nursing to triage him. He returned at 9:45 after standing in the parking lot reportedly waiting for police to arrest him for multiple murders that never took place. He at the time was declining hospital level of care so an EE was completed by KALEB Villareal. The second certification did not pass. Today is a reassessment for placement. In the last 2 weeks has the pt presented for ES prior to today?: Yes, presented at [facility] ED Client Information Client is: Adult Outpatient Well Housed: Yes Non Suicidal Self Injury Current: No History: No Safety Risk/Harm to Self or Others Current Ideation to Harm Self or Others: Yes to self. Intent: no, has no intent. Plan: yes,has a plan. History of suicide attempt: yes,history of suicide attempt reported. Details of previous suicide attempt: See CSSRS Risk: Does risk to harm exist?: yes. Asssessment/Mental Status Appearance: Poor hygiene Attitude: Cooperative and Guarded Behavior: Unremarkable Speech: Soft and Incoherent Affect: Cogruent with mood Mood: Stressed, Depressed and Anxious Thought process: Blocking, Tangential and Poverty of content Hallucinations: yes, Visual and Auditory Delusions: yes, Persectory/Paranoid Attention: Wandering Perception: Derealization Orientation: Disoriented in Situation Memory: Impaired in: Immediate Insight: Poor Judgement: Poor Neurovegetative Symptoms Sleep: Increase Appetitie: No change Interests: No change Energy: No change Libido: Not applicable Substance Use: Do you use nicotine?: Yes Have you used substances in the last 7 days?: No Additional Issues: Medical Concerns: No Client engaged in active self harm w/weapon: No Threatening to run away: No Child reported abuse/neglect: No Voluntarily presenting for services: Yes Domestic violence is a concern: No Extreme Psychosis or extreme behavior is present: Yes Impression Client is a 42 year old single, male who resides with his father in [facility] per a court order for 19/05 supervision. Client is not employed. He presents sitting on his bed when this clinician arrived appearing more disheveled, making no direct eye contact. When asked how he was doing he reported not good stating the voices... no the police are here. He continues to present as a person in need of treatment and is continuing to wait voluntarily. He reported that he did sleep better last night and that he is eating well. He is diagnosed with ADHD and CHARLES per chart review. However, he continues to appear to be experiencing some sort of psychosis. He has had numerous hospitalizations and has been consistently inconsistent with follow up out patient treatment. Protective factors were not explored in detail however, living with his father is one. Resources Reosurces reviewed and given:: [facility] Plan/Disposition Recommended Disposition: Hospitalization facilities contacted. Plan: There is a possibility that [facility] will accept today. [facility] and [facility] are just waiting confirmation. Person reported agreement to plan: Yes Facilities contacted if Applicable [facility] Accepted, Other (Doc to Doc). Information Sent to [facility]: Referral Reports/communication Outcome discussed with: ED/Personnel
--- NOTE | 2022-12-12 08:40 | CMPROGNOTE_ITS ---
- If Service Date Differs Date of service: 12/11/22 Time of Service: 15:00 Care Management Progress Note DISPOSITION: [facility] will follow up with [facility], community providers and plan of care as instructed upon discharge from the [facility]. He is transported to [facility] by EMS.
[2022-12-15 07:51] LABS: 9-Hydroxyrisperidone 8.8 ng/ml; Risperidone (Risperdal) 3.3 ng/ml
== END 2022-12-11 14:38 ==
PROVIDERS: Registered Nurse Emergency; Emergency Provider Emergency Medicine; PCP Family Medicine
DX: F32.A Depression, unspecified (principal); R44.0 Auditory hallucinations; R45.1 Restlessness and agitation; R45.851 Suicidal ideations; R53.83 Other fatigue; I10 Essential (primary) hypertension; F98.8 Other specified behavioral and emotional disorders with onset usually occurring in childhood and adolescence; R00.0 Tachycardia, unspecified; R25.1 Tremor, unspecified; F17.210 Nicotine dependence, cigarettes, uncomplicated
CPT/HCPCS: 80053; 80307; 82542; 82550; 93005; 96360; 99285; 99291; 80320; 80329; 81003; 84443; 84484; 85025; 93010; J3490

== ENCOUNTER 2023-01-06 15:03 | Emergency (ER) | payer MEDICAID, SELFPAY ==
[2023-01-06 15:06] VITALS: BP 120/87; PULSE 93; RESP 16; TEMP 37.1; O2SAT 98
--- NOTE | 2023-01-06 15:16 | W.ED.GENAD ---
Discharge Plan Disposition Patient Disposition: Home Condition: Stable Discharge Details Clinical Impression: Depression Primary Care Provider: Sophia Kelsey ED Provider: Torrey Tse Home Meds and New Rx's Prescriptions: Continued Vyvanse 40 mg capsule 40 mg PO DAILY risperidone [Risperdal] 1 mg tablet 1 mg PO BID buprenorphine-naloxone [Suboxone] 8-2 mg film 1 film buccal Q24H buprenorphine-naloxone [Suboxone] 12-3 mg film 1 film buccal Q24H lisinopril 10 mg tablet 10 mg PO DAILY Qty: 30 3RF clonidine HCl 0.2 mg tablet 0.2 mg PO Q12H PRN Rx Instructions: Last RX'd by [facility] October 2022 venlafaxine 150 mg capsule,extended release 24hr 150 mg PO DAILY Qty: 4 0RF Rx Instructions: Last Rx'd by [facility] melatonin 3 mg capsule 6 mg PO HS PRN Rx Instructions: Last RX'd by [facility]. hydroxyzine pamoate [Vistaril] 50 mg capsule 50 mg PO QID PRN (Reason: itching) Qty: 30 0RF Rx Instructions: Last RX'd by [facility] 11/19/22. -hb gabapentin 300 mg capsule 300 mg PO TID Rx Instructions: Last RX'd by [facility] on 11/19/2022. -hb Discharge Instructions Instructions: Depression (ED) Additional Instructions: follow up with your mental health providers and primary care provider if you feel more ill, have worsening thoughts of self harm return to the emergency department for evaluation Medical Decision Making 42 yo male with hx of depression with psychotic symptoms who went to [place] last month for auditory hallucinations comes in with continued auditory hallucinations and depression. HE denies attempts to self harm and has no specific plan when I ask him how he would harm himself. He denies fevers, chills, chest pain, headaches, dyspnea, abdominal pain, weakness. He arrives stable caox4 with normal gait, does have slightly pressure speech. He has no focal motor or sensation deficits, cn ii-xii intact. I suspect continued depression with psychotic symptoms, do not feel theres an underlying medical process causing his symptoms such as infectious or endocrine etiologies. Will obtain screening labs and consult mental health labs unremarkable, pt left [place] just a few days ago per [facility] and given chronicity of his symptoms and he hasn't tried outpatient management discussed with him and prefers to trial outpatient management. He has no si or hi now so feel this is reasonable. Return precautions given Differential Diagnosis Differential Diagnosis: depression, schizophrenia Medical Records Medical records reviewed: Yes I reviewed the patient's medical records. Lab Data Lab results reviewed: Yes I reviewed the patient's lab results. HPI General Mode of arrival: ambulatory. Date/Time Provider Initiated Documentation: 01/06/23 15:06. Limitations to Documentation: no limitations. Information obtained by: patient. History of Present Illness 42 year old M presents to the emergency department with the chief complaint of auditory hallucinations, described as moderate, Patient started experiencing this month(s) (1) and it has been constant. No relieving factors improve symptom(s), No exacerbating factors reported . Patient notes other (depression). Patient did receive the following treatments prior to arrival, none Related Data Home Medications Medication Instructions Recorded Confirmed clonidine HCl 0.2 mg tablet 0.2 mg PO Q12H PRN 12/04/22 01/06/23 gabapentin 300 mg capsule 300 mg PO TID 12/04/22 01/06/23 hydroxyzine pamoate 50 mg capsule 50 mg PO QID PRN itching #30 caps 12/04/22 01/06/23 (Vistaril) melatonin 3 mg capsule 6 mg PO HS PRN 12/04/22 01/06/23 venlafaxine 150 mg 150 mg PO DAILY #4 caps 12/04/22 01/06/23 capsule,extended release 24 hr buprenorphine 12 mg-naloxone 3 mg 1 film buccal Q24H 01/03/23 01/06/23 sublingual film (Suboxone) buprenorphine 8 mg-naloxone 2 mg 1 film buccal Q24H 01/03/23 01/06/23 sublingual film (Suboxone) lisdexamfetamine 40 mg capsule 40 mg PO DAILY 01/03/23 01/06/23 (Vyvanse) lisinopril 10 mg tablet 10 mg PO DAILY #30 tabs 01/03/23 01/06/23 risperidone 1 mg tablet (Risperdal) 1 mg PO BID 01/03/23 01/06/23 Previous Rx's Medication Instructions Recorded hydroxyzine pamoate 50 mg capsule 50 mg PO QID PRN itching #30 caps 12/04/22 (Vistaril) venlafaxine 150 mg 150 mg PO DAILY #4 caps 12/04/22 capsule,extended release 24 hr lisinopril 10 mg tablet 10 mg PO DAILY #30 tabs 01/03/23 Allergies Allergy/AdvReac Type Severity Reaction Status Date / Time No Known Allergies Allergy Verified 01/06/23 15:09 General Stated Complaint: PsychEval PACO: 2 Review of Systems All systems reviewed & are unremarkable except as noted in HPI and below Constitutional Constitutional: Denies chills, Denies fever(s) and Denies weakness Cardiovascular Cardiovascular: Denies chest pain and Denies dyspnea Respiratory Respiratory: Denies cough and Denies dyspnea Gastrointestinal Gastrointestinal: Denies abdominal pain, Denies nausea and Denies vomiting Genitourinary Genitourinary: Denies dysuria Musculoskeletal Musculoskeletal: Denies joint swelling Integumentary/Breasts Skin/Breast: Denies rash Neurologic Neurologic: Denies weakness Endocrine Endocrine: Denies cold intolerance and Denies heat intolerance [facility] All Active Problems (Updated 01/06/23 @ 18:51 by Torrey Tse MD) Hypertension (Chronic) Tobacco abuse (Chronic 11/19/17) 1 ppd HFrEF (heart failure with reduced ejection fraction) (Acute) Opioid dependence in remission (Chronic) using Suboxone through [facility]. Major depressive disorder, recurrent, severe with psychotic symptoms (Acute) H/o Hospitalization at [facility]; psych meds managed through [facility]. Depression (Chronic) Medical History (Updated 01/06/23 @ 18:51 by Torrey Tse MD) ADD (attention deficit disorder) Alcohol abuse Cardiomyopathy Closed right ankle fracture (~09/2019) Hypogonadism, male (03/24/18) Pending appt with Dr. Charles at [facility] in [place] Methadone dependence (04/01/18) [facility] in [facility] Hx intranasal and oral use of opioids. Meets with therapist twice monthly; has had take-home in the past. Polysubstance abuse QT prolongation Surgical History S/P hernia repair Family History Mother Diabetes Cancer thyroid cancer Father Diabetes Essential hypertension Paternal Grandfather No problems noted. 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, 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 Current gender identity: male Do you feel safe at home: Yes Do you feel safe in your relationship?: Yes Exam Const General: no acute distress Orientation: alert HENMT Head: normal to inspection Ears: external ears normal General nose exam: external nose normal Mouth: moist mucous membranes Eyes General: appearance normal, both eyes and all related structures Neck Neck: normal visual inspection Resp Effort & Inspection: normal respiratory effort and able to speak in complete sentences Cardio Rate: regular rate Skin General skin exam: no rashes or lesions noted Neuro General: patient alert and patient oriented x3 Extrem General: normal to inspection Psych Speech and Movement: speech and movement normal Course Vital Signs Vital signs: Vital Signs Temperature 37.1 C 01/06/23 15:06 Pulse 93 H 01/06/23 15:06 Respiratory Rate 16 01/06/23 15:06 Blood Pressure 120/87 01/06/23 15:06 Pulse Oximetry 98 01/06/23 15:06 Temperature 37.1 C 01/06/23 15:06 Temperature Source Oral 01/06/23 15:06 Pulse 93 H 01/06/23 15:06 Respiratory Rate 16 01/06/23 15:06 Respiratory Effort Normal 01/06/23 15:08 Blood Pressure 120/87 01/06/23 15:06 Blood Pressure Position Sitting 01/06/23 15:06 Pulse Oximetry 98 01/06/23 15:06 Oxygen Delivery Method Room Air 01/06/23 15:06 Oxygen Flow Rate 0 01/06/23 15:06 Pain Level 0 01/06/23 15:06
[2023-01-06 15:32] LABS: Abs Immature Grans 0.01 10^3/uL (0.0-0.06); Absolute Basophil Count 0.03 10^3/uL (0.0-0.2); Absolute Lymphocyte Count 2.36 10^3/uL (1.2-3.4); Absolute Monocyte Count 0.59 10^3/uL (0.1-0.8); Absolute Neutrophil Count 4.61 10^3/uL (1.2-6.7); Basophils % 0.4; Eosinophils % 1.3; HGB 13.8 g/dL (13.5-17.5); Immature Grans % 0.1; Lymphocytes % 30.6; MCH 30.1 pg (27.0-33.0); MCHC 33.7 % (32.0-36.0); MCV 90 fL (80-95); MPV 8.9 fL (8.0-11.0); Monocytes % 7.7; Neutrophils % 59.9; Platelet Count 259 10^3/uL (130-400); RBC 4.58 10^6/uL (4.36-5.78); RDW 12.6 % (11.8-14.1); RDW-SD 40.9 fL
[2023-01-06 16:11] LABS: ALT 33 U/L (16-63); AST 22 U/L (15-37); Alkaline Phosphatase 76 U/L (46-116); Anion Gap 10.4 mmol/L (3-11); BUN 23 mg/dL (7-18); Bilirubin, Total 0.3 mg/dL (0.2-1.0); CO2 25.6 mmol/L (21.0-32.0); Calcium 9.2 mg/dL (8.5-10.1); Chloride 100 mmol/L (98-107); Estimated GFR 96.37 (mL/min/1.73m2); Glucose 113 mg/dL (74-106); Potassium 3.8 mmol/L (3.5-5.1); Sodium 136 mmol/L (136-145); TSH (W/Ref FT4) 1.59 uIU/mL (0.36-3.74); Total Protein 7.4 g/dL (6.4-8.2)
[2023-01-06 16:12] LABS: ETHANOL BLOOD < 3.0 mg/dL (<10)
[2023-01-06 16:34] LABS: Acetaminophen < 2 ug/mL (10-30)
[2023-01-06 17:11] LABS: Bilirubin Negative (Negative); Blood Negative (Negative); Clarity Clear (Clear); Glucose Negative (Negative); Ketones Negative (Negative); Leukocyte Esterase Negative (Negative); Nitrite Negative (Negative); Urobilinogen 0.2 mg/dL (Up to 0.2); pH 5.5 (5-8)
--- NOTE | 2023-01-06 17:53 | PDOC.MHCN_ITS ---
Date of service: 01/06/23 Time of Service: 17:54 PHQ-9 Over the last 2 weeks, how often have you been bothered by any of the following problems? 1. Little interest or pleasure in doing things: more than half the days 2. Feeling down, depressed, or hopeless: nearly every day 3. Trouble falling or staying asleep, or sleeping too much: several days 4. Feeling tired or having little energy: nearly every day 5. Poor appetite or overeating: more than half the days 6. Feeling bad about yourself - or that you are a failure or have let yourself and your family down: several days 7. Trouble concentrating on things, such as reading the newspaper or watching television: nearly every day 8. Moving or speaking so slowly that other people could have noticed? - Or the opposite - being so fidgety or restless that you have been moving around a lot more than usual: not at all 9. Thoughts that you would be better off or of hurting yourself in some way: not at all Total score: 15 If you checked off any problems, how difficult have these problems made it for you to do your work, take care of things at home, or get along with other people?: extremely difficult Source: Developed by Drs. Jamie Gustafson, Violeta Sorenson, Perry Dwyer and colleagues, with an educational didi from [employer]. Suicide Severity Rate CSSRS Have you wished you were or wished you could go to sleep and not wake up?: Yes Have you actually had any thoughts of killing yourself?: No CSSRS3 Have you ever done anything, started to do anything or prepared to do anything to end your life?: No Screening Score Total Score: 2 Screening: Negative Mental Health Emergency Note Release [facility] release signed:: No Reason for Visit Client reported he is feeling unsafe, could not elaborate further. No HI/SI/NSSI endorsed In the last 2 weeks has the pt presented for ES prior to today?: No (Client last presented to the ED ~1 month ago.) Client Information Client is: Adult Outpatient Well Housed: Yes Non Suicidal Self Injury Current: No History: yes, Cutting, jumping into a river etc, around the fall of 2021. Safety Risk/Harm to Self or Others Current Ideation to Harm Self or Others: No Risk: Does risk to harm exist?: yes. Access to means: No. Risk: Low Risk Duty to warn indicated: No Asssessment/Mental Status Appearance: Disheveled Attitude: Cooperative Behavior: Unremarkable Speech: Normal Affect: Cogruent with mood Mood: Sad, Stressed, Depressed and Anxious Thought process: Unremarkable Hallucinations: No evidence Delusions: yes, Persectory/Paranoid Attention: Unremarkable Perception: Not impaired Orientation: Fully orientated Memory: Intact Insight: Fair Judgement: Fair Neurovegetative Symptoms Sleep: Decrease Appetitie: Increase Interests: No change Energy: Decrease Substance Use: Have you used substances in the last 7 days?: No Additional Issues: Assaultive/Threatening Behavior: No Medical Concerns: No Client engaged in active self harm w/weapon: No Threatening to run away: No Child reported abuse/neglect: No Voluntarily presenting for services: Yes Domestic violence is a concern: No Extreme Psychosis or extreme behavior is present: Yes Impression Miriam presented to the E stating he is feeling unsafe but could not elaborate exactly why, aside from stating the state police are after him. This is a fairly common statement from Miriam as he believed there's an active warrant for his arrest. Miriam reported he has been out in the community for roughly a week (Client went to for treatment) and is experiencing some delusions around people being out to get [him]. Miriam reported treatment was not helpful. This clinician recommended that Miriam continue to work on his mental health on an outpatient basis. This client's affect was fairly flat throughout most of the assessment until this clinician relayed this disposition plan, when he became visible distressed and somewhat angry. Miriam has an appointment with a therapist tomorrow, 01/07 @1100 hrs. This clinician confirmed he had knowledge of this appointment. Miriam reported reported he has been eating regularly, but more so than usual. He stated his sleep has not been restful and he has a hard time falling asleep most nights. Miriam was saftey planned home with a plan to utilize community resources and follow up on post IP tx aftercare. No SI/HI/NSSI endorsed. Resources Reosurces reviewed and given:: [facility] Plan/Disposition Recommended Disposition: [facility] Services [facility] Services: [employer] and Therapy, [employer] and Community resources. Person reported agreement to plan: Yes Reports/communication Outcome discussed with: ED/Personnel
[2023-01-06 17:54] LABS: *AMPHETAMINES SCREEN URINE Positive (Negative); Cannabinoids THC Negative (Negative); Cocaine Screen,Urine Negative (Negative); METHADONE URINE SCREEN Negative (Negative)
[2023-01-06 18:07] LABS: *BARBITURATES SCREEN URINE Negative (Negative); *BENZODIAZEPINES SCREEN URINE Negative (Negative); OPIATES URINE SCREEN Negative (Negative); Tricyclic Antidepressants Negative (Negative)
== END 2023-01-06 19:28 | disposition home or self-care (01) ==
PROVIDERS: Emergency Provider Emergency Medicine; PCP Family Medicine
DX: F32.A Depression, unspecified (principal); R44.0 Auditory hallucinations
CPT/HCPCS: 80053; 80307; 99283; 99285; 80320; 80329; 81003; 83735; 84443; 85025; 99284

== ENCOUNTER 2023-02-25 04:20 | Outpatient (CLI) | payer MEDICAID, SELFPAY ==
--- NOTE | 2023-02-25 07:00 | DI.MRI_ITS ---
Exam(s) MR LOWER JOINT LT WO EXAM: MR LOWER JOINT LT WO CLINICAL HISTORY: Left knee pain,TEAR MEDIAL MENISCUS,CURRENT INJURY,S83.242A TECHNIQUE: Multiplanar multisequence MRI of the knee was performed. COMPARISON: MR MR LOWER JOINT LT WO from 11/02/2019 FINDINGS: EFFUSION: There is small amount of increased joint fluid. There is no large joint effusion. There i s no Kapoor cyst in the popliteal fossa. MARROW:There is no evidence of fracture, bone contusion, nor osteochondral defects.. There are no si gnificant osseous lesions. PATELLOFEMORAL COMPARTMENT: Mild increased signal in the distal quadriceps tendon no high-grade tear. There is increased signal in the quadriceps fat pad triangle just above the patella. Some scarring is noted in the intra-articular Hoffa fat pad. There is mild relatively uniform thinning of the retropatellar cartilage. No evidence of fissure nor significant chondral defect. No osteochondral defect at this level.There is no intraosseous signal to suggest recent patellar dislocation. There are no patellar retinacular tears. CRUCIATE LIGAMENTS: There is evidence of chronic high-grade partial tearing of the superior aspect of the anterior cruciate ligament. This is subsequent to findings in the ACL on the MRI scan performed 11/02/2019. The posterior cruciate ligament is again noted to be intact. MEDIAL COMPARTMENT/MEDIAL MENISCUS: There is tear of the posterior horn of the medial meniscus 1 cm f rom the root attachment site. There is also substance loss in the inferior aspect of the posterior h orn which is probably related to combination of the prior tear and possible interval instrumentation. The anterior horn appears relatively intact. There is no meniscocapsular separation. No degenerat ivy meniscal cysts. There is mild subarticular edema in the outer 3rd of the medial femoral condyle. There is moderate cartilage loss over the medial condyle. There are now marginal osteophytes off b oth the inner and outer aspects of the medial condyle. There is minimal subarticular edema in the me dial tibial plateau. MEDIAL COLLATERAL LIGAMENT: Mild increased signal between the deep and superficial layers but no high -grade tear of this structure. LATERAL COMPARTMENT/LATERAL MENISCUS: There is no evidence of lateral meniscal tear.There are no lisa dral defects, osteochondral defects, subarticular marrow edema,. Marginal osteophytes are noted off the inner and outer aspects of the lateral condyle. ILIOTIBIAL BAND: Intact LATERAL COLLATERAL LIGAMENT COMPLEX: The fibular collateral ligament is intact. The biceps femoris t endon is intact.Popliteus muscle and tendon are intact. IMPRESSION: 1. When compared to the prior MRI scan of October 2019 the flipped fragment of the torn posterior hor n of the medial meniscus is no longer seen biopsy there is a tear in the posterior horn approximately 9-10 millimeters from the root attachment level. Also attenuation of the substance of the remainder of the posterior horn which is probably post surgical. The anterior horn is relatively intact. The re is increase in Ravalli cartilage loss over the medial femoral condyle when compared to the prior study and there is some mild subarticular edema at the medial femoral condyle but no distinct osteoch ondral defect. Increased marginal osteophytes off the inner and outer aspect of the femoral condyles noted. The lateral meniscus appears intact 2. There is significant attenuation and fatty replacement of the superior half of the anterior crucia te ligament consistent with what appears to be high-grade partial chronic tearing at this level, this some progression when compared to the images of 11/02/2019. The PCL remains intact 3. Mild increased signal noted between the superficial and deep layers of the MCL but no high-grade t ear of this structure. The components of the lateral collateral ligament complex are intact, as is t he iliotibial band. 4. Small amount of increased joint fluid noted. No large joint effusion, as was evident in October 28. There is no Kapoor cyst. 5. Some increased signal is noted within the quadriceps fat pad triangle just above the patella. DATA REPOSITORY:
== END 2023-02-25 04:40 ==
LOC: DI 04:21
PROVIDERS: PCP Family Medicine; Visit Provider Student in an Organized Health Care Education/Training Program
DX: S83.242A Other tear of medial meniscus, current injury, left knee, initial encounter (principal); M25.562 Pain in left knee
CPT/HCPCS: 73721

== ENCOUNTER 2023-02-26 01:53 | Outpatient (CLI) | payer MEDICAID, SELFPAY ==
--- NOTE | 2023-02-26 07:31 | DI.US_ITS ---
APPROVED REPORT EXAM: Comprehensive 2D, Doppler, and color-flow Echocardiogram Patient Location: Out-Patient Gang Mower Operator: Newton Parmar RDMS, RVT Indications: h/o FOWL BLOOD TESTER, heart failure with reduced EF Other Information Study Quality: Adequate Conclusion Normal left ventricular wall thickness and chamber size. Ejection fraction is 55 to 60%. Wall motio n is normal Normal right ventricular size and systolic function Both atria are normal in size There is no structural or hemodynamically significant valvular disease Estimated right ventricular systolic pressure is 26 mmHg Wall motion Left Ventricle The left ventricle is normal size. The left ventricular systolic function is normal. The left ventric ular ejection fraction is within the normal range. There is normal left ventricular wall thickness. T here is normal LV segmental wall motion. There is no ventricular septal defect visualized. LVEF is 55 -60%. Right Ventricle Right ventricle is grossly normal in size. Right ventricular systolic function is grossly normal. The RVSP is 26.5 mmHg. Atria The left atrium size is normal. The right atrium size is normal. The interatrial septum is intact wit h no evidence for an atrial septal defect. Aortic Valve The aortic valve is normal in structure. Aortic valve is trileaflet. There is no aortic valvular sten osis. No aortic regurgitation is present. Mitral Valve The mitral valve is normal in structure. No evidence of mitral valve stenosis. Trace mitral regurgit ation. Tricuspid Valve The tricuspid valve is normal in structure. There is no tricuspid valve stenosis. Mild tricuspid reg urgitation. Pulmonic Valve The pulmonary valve is normal in structure. There is no pulmonic valvular stenosis. There is no pulmo andrew valvular regurgitation. Great Vessels The aortic root is normal in size. Ascending aorta is not well visualized. Aortic arch is normal in c aliber. IVC is normal in size and collapses >50% with inspiration. Pericardium There is no pericardial effusion. 2D Dimensions IVSD d PLAX 0.90 cm M: 0.6-1.2 LV Vol A2C d MOD 96.9 mL LVPW d PLAX 0.89 cm M: 0.6 - 1.2 LV Vol A4C d MOD 144.7 mL LVID d PLAX 5.37 cm M: 4.2 - 5.8 LA vol/ BSA A4C s A-L 13.3 mL/m2 LVDs 3.70 cm M: 2.5 - 4.0 LA Area A4C s MOD 12.29 cm2 Ao Root d 3.63 cm M: 3.1 - 3.7 LV EF A4C MOD 54.5 % LV EF Teichholz 57.6 % LV EF A2C MOD 57.3 % LVEF (Figueroa's) 56.57 % M: 52 - 72 LV EF Biplane MOD 56.6 % LV Volume 93.49 mL M: 62 - 150 SV 69.69 mL LV Volume Index 48.44 mL/m2 M: 34 - 74 SV Index 36.09 mL/m2 LV Vol Biplane MOD 123.2 mL FS 30.55 % M-Mode TAPSE 2.14 cm (M/F) >1.7 LV Diastology MV E' medial 0.137 (>0.07 m/s) E/A Ratio 0.8 LV E/e MED 3.85 (<14) MV E Vmax 0.53 (0.4-1.3 m/s) MV E' lateral 0.139 (>0.1 m/s) MV A Vmax 0.70 (0.4-1.3 m/s) LV E/e LAT 3.80 (<14) MV E/A Ratio 0.73 MV E/E' medial 3.88 MV E/E' lateral 3.84 Aortic Valve LVOT Area 3.39 cm2 AoV Area Vmax 2.97 cm2 LVOT Vmax 0.86 m/s AoV Area/ BSA (Vmax) 1.54 cm2/m2 LVOT Mean Nikunj. 0.70 m/s OSORIO Mean Nikunj. 3.07 cm2 LVOT Peak Grad 2.9 mmHg OSORIO Mean Nikunj. Index 1.59 cm2/m2 LVOT Mean Grad 2.0 mmHg LVOT VTI 0.163 m LVOT Diam s 2.05 cm AoV Vmax 0.98 m/s Velocity Ratio 0.88 AoV Mean Nikunj. 0.78 m/s AoV Peak Grad 3.8 mmHg LVOT SV 55.40 mL AoV Mean Grad 2.6 mmHg AoV VTI 0.180 m AoV Area VTI 3.07 cm2 AoV Area/ BSA (VTI) 1.59 cm/m2 Mitral Valve MV DT 282 (160-240 msec) MV PHT 82 msec MV Area PHT 2.69 cm2 MV VTI 0.241 m MV Area VTI 2.30 (4.0-6.0 cm2) Pulmonary Valve PV Vmax 0.92 (0.5-1.5 m/s) RVOT Peak Gr. 1.16 mmHg PV Peak Grad 3.4 mmHg RVOT Mean Gr. 0.70 mmHg PV Mean Grad 2.1 mmHg RVOT VTI 0.119 m PV VTI 0.160 m RVOT Vmax 0.54 m/s Tricuspid Valve TR Peak Grad 23.5 mmHg TR Vmax 2.42 m/s RA Pressure 3.00 mmHg RVSP (TR) 26.5 mmHg
== END 2023-02-26 02:13 ==
PROVIDERS: PCP Family Medicine; Visit Provider Family Medicine
DX: I50.20 Unspecified systolic (congestive) heart failure (principal)
CPT/HCPCS: 93306

== ENCOUNTER 2023-03-28 06:15 | Day surgery (SDC) | payer MEDICAID, SELFPAY ==
--- NOTE | 2023-03-27 20:40 | ANES.PREOP_ITS ---
General Info Date of Service Date Performed: 03/27/23 Height: 5 ft 8 in Weight: 83.915 kg Body Mass Index (BMI): 28.1 Surgical Procedure: Operation Date: 03/28/23 07:40 Proposed Procedure Side Surgeon p Knee ACL Reconstruction(Allograft), any other indicated Surgery Left Ej Bueno MD Meds Allergies and Home Medications Allergies Allergy/AdvReac Type Severity Reaction Status Date / Time No Known Allergies Allergy Verified 03/28/23 06:38 Home Medication Medication Instructions Recorded clonidine HCl 0.2 mg tablet 0.2 mg PO Q12H PRN 12/04/22 gabapentin 300 mg capsule 300 mg PO TID 12/04/22 hydroxyzine pamoate 50 mg capsule 50 mg PO QID PRN itching #30 caps 12/04/22 (Vistaril) melatonin 3 mg capsule 6 mg PO HS PRN 12/04/22 venlafaxine 150 mg 150 mg PO DAILY #4 caps 12/04/22 capsule,extended release 24 hr buprenorphine 12 mg-naloxone 3 mg 1 film buccal Q24H 01/03/23 sublingual film (Suboxone) buprenorphine 8 mg-naloxone 2 mg 1 film buccal Q24H 01/03/23 sublingual film (Suboxone) lisdexamfetamine 40 mg capsule 40 mg PO DAILY 01/03/23 (Vyvanse) lisinopril 10 mg tablet 10 mg PO DAILY #30 tabs 01/03/23 risperidone 1 mg tablet (Risperdal) 1 mg PO BID 01/03/23 triamcinolone acetonide 0.025 % 1 applic topical DAILY PRN rash 02/28/23 topical cream #15 grams aspirin 81 mg tablet,delayed 81 mg PO DAILY Prevent blood clot 03/28/23 release 14 days #14 tabs naproxen 250 mg tablet 250 - 500 mg PO BID PRN #40 tabs 03/28/23 Current Visit Medications: Current Medications Generic Name Dose Route Start Last Admin Trade Name Freq PRN Reason Stop Dose Admin Ringer's Solution 1,000 mls @ 30 mls/hr 03/28/23 06:00 IV 04/26/23 23:59 INFUSION BETHANY Cefazolin Sodium/Dextrose 2 gm in 50 mls @ 100 mls/hr 03/28/23 06:00 Ancef Duplex IVPB 04/26/23 23:59 PREOP BETHANY IV Miscellaneous Supplies 1 each 03/28/23 06:00 Iv Access IV 04/26/23 23:59 DIRECTED BETHANY Sodium Chloride 0 ml 03/28/23 06:00 Normal Saline Flush 10 Ml Syr IV 04/26/23 23:59 PRN PRN Sodium Chloride 0 ml 03/28/23 06:00 Normal Saline 10 Ml Vial IJ 04/26/23 23:59 DIRECTED PRN Sterile Water 0 ml 03/28/23 06:00 Water,Injection,Sterile 10 Ml Vial IJ 04/26/23 23:59 DIRECTED PRN PFSH Active Problems Active Problems: Problem Status Onset Code Hypertension I10 Tobacco abuse 11/19/17 Z72.0 Opioid dependence in remission F11.21 Major depressive disorder, recurrent, severe with psychotic symptoms F33.3 Seborrheic dermatitis L21.9 Left ACL tear S83.512A 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 [facility] [place] Methadone dependence (04/01/18) [facility] in [facility] Hx intranasal and oral use of opioids. Meets with therapist twice monthly; has had take-home in the past. Polysubstance abuse QT prolongation Surgical History Surgical History S/P hernia repair Tobacco Smoking/Tobacco Use Status: Current every day Tobacco Type: cigarettes Counseling given: provider counseling Alcohol Alcohol Intake: former Year quit: 2021 Substance Use Substance use: Current Sobriety Substance use type: does not use Counseling provided: treatment program Details: Pt. states its been years since use Vital Signs and Lab Results Vital Signs Comment Vital Signs Comment:: Temp Pulse Resp BP Pulse Ox 36.7 C 76 16 103/67 96 03/28/23 06:50 03/28/23 06:50 03/28/23 06:50 03/28/23 06:50 03/28/23 06:50 Lab Results Blood Type / Crossmatch: No Data to Display Complete Blood Count: No Data to Display Complete Metabolic Panel: No Data to Display Liver Function Panel: No Data to Display Coagulation Panel: No Data to Display Cardiac Panel: No Data to Display Arterial Blood Gas: No Data to Display Venous Blood Gas: No Data to Display Pancreas Panel: No Data to Display Thyroid Panel: No Data to Display Infectious Disease: No Data to Display Blood Cultures: No Data to Display Toxicology Panel: No Data to Display Imaging and Studies Imaging and Studies Study information below may be from another EMR and interpreted by another provider. Please see original notes in EMR for more complete details. EKG Summary: DATE/TIME OF SERVICE: 12/09/222118 : 1980PERFORMING LOCATION: ER APPROVED REPORT Exam: Resting ECG Reason for Exam: OD Patient Location: E HR:105 bpm ECG Measurements Heart Rate 105 AXIS DC 134 P -3 QRSd 95 QRS -5 QT 377 T145 QTc 500 Conclusion Sinus tachycardia...rate> 99 Abnrm T, consider ischemia, anterolateral lds...T <-0.20mV, I aVL V2-V6. Sinus. T wave inversions anterolateral leads, no change from previous. No STEMI. 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 Ejection fraction is 55 to 60%. Wall motion is normal Normal right ventricular size and systolic function Both atria are normal in size There is no structural or hemodynamically significant valvular disease Estimated right ventricular systolic pressure is 26 mmHg Anesthesia Assessment and Plan Anesthesia History Personal History: No History of Anesthesia Complications Family History: No Family History of Anesthesia Complications Exercise Tolerance Exercise Tolerance: Metabolic Equivalents>4 Pertinent Negatives Pertinent Negatives: No Symptoms of GERD, No Major Pulmonary Symptoms or Complaints and No History of CVA/TIA Cardiac & Pulmonary Exam Cardiac Exam: Normal S1/S2 Heart Sounds Pulmonary Exam: Clear Bilateral Breath Sounds Implantable Cardiac Device Does patient have a Pacemaker or an ICD?: No Airway Exam Known Difficult Airway: No Mallampati Class: 1 Mouth Opening: Normal (> 3cm) Thyromental Distance: Greater than 3 cm Facial Hair: Full Osborne Neck Range of Motion: Full ROM Neck Circumference: Normal Teeth Condition: Normal Dentition ASA Classification ASA Score: ASA 3 Emergency Case?: No NPO Status NPO Status: NPO Clears >2 hours, Solids >8 hours Anesthesia Plan Resuscitation Status: Full Code Anesthesia Technique: General Anesthesia Airway Planned: Endotracheal Tube Pain Management: Surgeon and patient request nerve block Monitors Used: Standard Monitors
[2023-03-28] VITALS (12 sets, daily range): BP systolic 93–120; BP diastolic 61–79; PULSE 63–83; RESP 7–18; TEMP 36.3–36.7; O2SAT 91–100; BMI 28.1
--- NOTE | 2023-03-28 07:03 | ROE_ITS ---
Date of service: 03/28/23 Time of Service: 07:30 Operative Note Operative Note DATE OF PROCEDURE: 03/28/23 PRE-OP DIAGNOSIS: Left knee: 1. Chronic ACL rupture 2. Chronic displaced medial meniscus tear PROCEDURE: Left knee: 1. ACL reconstruction, CPT #76447: Quadriceps allograft with internal brace 2. Partial medial meniscectomy, CPT #82773 SURGEON: Ej Bueno LIQUEFIED NATURAL GAS OPERATOR: Amena Bales ANESTHESIA TYPE: Local By Surgeon, General LMA/ETT and Primary Nerve Block Refer to Anesthesia Record ESTIMATED BLOOD LOSS: 10 TOURNIQUET TIME: 0 COMPLICATIONS: None Patient was transported to: PACU Patient's condition: stable Implants: Arthrex ACL TightRope II RT with IB and ABS with 8x12 mm cortical button QuadLink pre-sutured quadriceps allograft: 10 x65 mm Indications: Please see complete medical record for details. Findings: Exam under anesthesia: Grossly positive Junior with significant instability, stable varus and valgus, positive pivot glide, full range of motion Arthroscopic findings: Moderate central trochlear limited zone of chond romalacia, moderate medial femoral condyle and medial to plateau diffuse chondromalacia with early joint space narrowing. Diminutive medial meniscus remnant with chronic?appearing bulbous anterior horn and partial radial tear near the root. No significant identifiable displaced previously bucket-handle chronic medial meniscus tear tissue. Complete ACL avulsion mid substance to proximal, scarred to PCL. Intact lateral meniscus and lateral compartment. Small osteochondral loose bodies medially and patellofemoral. Procedure Description: In the operating room, general anesthesia was induced. The patient was positioned supine on the operating room table. All bony prominences were well- padded. Preoperative antibiotics were administered. The knee was prepped and draped in the usual sterile fashion. The correct patient, procedure, and side of the procedure were all verified prior to incision. Exam under anesthesia was performed. Local anesthetic containing epinephrine was infiltrated about the planned anteromedial, anterolateral, lateral distal femoral, and pretibial surgery sites. The standard high and tight anterolateral and anteromedial portals were established and a complete diagnostic arthroscopy was performed with relevant findings detailed above. A passport cannula was inserted in both the anteromedial and anterolateral portals. The diminutive medial meniscus was examined, see above description, the bulbous part at the anterior horn was probably where the bucket-handle tear had existed. The meniscus biters and shaver were used to debride this somewhat to a more contoured and less prominent margin. Similarly the posterior horn had a bulbous area adjacent to a partial radial tear that was trimmed as well. The chronic radial tear was not appropriate for repair at the posterior horn given the fairly limited peripheral meniscal tissue remnant that was left. In the intercondylar area, the ACL remnant was removed leaving enough footprint on the femur and tibia to localize anatomic socket placement. A small notchplasty was performed to allow proper visualization of the back wall. The graft was measured and prepared on the back table. The TightRope II BTB with IB and TightRope II ABS adjustable-loop cortical suspensory fixation implants were loaded on QuadLink pre-sutured quadriceps allograft. The femoral and tibial ends each measured 10 mm. The graft was marked at 20 mm from each end. On the ABS side, the tensioning sutures were marked and a shuttle suture was added. The graft was manually tensioned and the construct did not demonstrate any elongation. The graft was then compressed in a graft tube and covered with vancomycin soaked sponges. The femoral guide was then placed through the anterolateral portal carefully targeting the appropriate anatomic ACL origin. The outer 9 mm diameter of the guide was positioned anatomically with appropriate space between the proximal and posterior articular margins. On the lateral thigh, drill guide position and angle adjusted to about 60 degree angle to the longitudinal axis of the femur in the coronal plane and 20 degree angle to the trans-epicondylar axis in the axial plane to create the most optimal femoral socket. Knife and snap were used to open the skin and IT band and placed the drill guide on bone while maintaining appropriate position on the lateral wall. The tunnel length was noted to be used for marking and passing the femoral button. The flip cutter was then drilled to the appropriate location. The drill guide malleted 7 mm into the cortex. The remainder of the targeting guide removed. The FlipCutter was deployed to 10 mm and retrograde reaming done to a depth of 30mm. Bony debris was removed with the shaver. The flip cutter was then closed, withdrawn, and a FiberStick used to pass a #2 FiberWire shuttle stitch, which was withdrawn out the anterolateral portal. The tibial guide was then used to target the anatomic ACL insertion through the anteromedial portal. The drill angle adjusted to 57.5 degrees and a pretibial incision made. The drill guide was placed on bone, tunnel length noted, and the flip cutter drilled to the appropriate location. The drill guide malleted 7 mm into the cortex. The remainder of the targeting guide removed. The FlipCutter was deployed to 10mm and retrograde reaming done to a depth of 30 mm. Bony debris was removed with the shaver. The flip cutter was then closed, withdrawn, and a FiberStick used to pass a #2 FiberWire shuttle stitch, which was withdrawn out the anteromedial portal. The mechanical shaver was used to remove bone debris as well as chamfer and remove soft tissue from the edges of the sockets. A femoral shuttle sutures were withdrawn out the anterior medial portal. The PassPort was removed. This portal dilated to accommodate the graft size. The graft was brought over to the knee and the femoral sutures shuttled out the lateral thigh and advanced until the button was near the far cortex. Under arthroscopic visualization with the knee slightly hyperflexed, and the button was then passed and flipped on the far cortex. Counter traction was then maintained on the tibial side of the graft while it was carefully advanced into the knee and then into the femoral socket. Unfortunately, about 25 mm of graft advanced via the one-way tensioning mechanism into the femoral socket. The tibial side was attempted. Shuttled and dunked, but only 10 mm of graft length could be pulled into this socket. Decision was made to improve the construct. The lateral femoral incision was extended slightly distally, the cortical button exposed, and a knife used to cut the knot. The button was removed with the shuttling sutures. Inside the knee, the tibial and was retrieved and brought back out the anterior medial portal. The femoral side of the graft was re? loaded with a tight rope containing internal brace. Shuttling sutures were placed through both femoral and tibial sockets again. The graft was brought over to the knee and femoral suture shuttled again out the lateral thigh. The button was carefully flipped on the far cortex. Again, countertraction was maintained on the tibial side of the graft and it was slowly advanced into the knee and then about 15 mm into the femoral socket. The tibial sutures and internal brace FiberTapes were then shuttled through the tibial tunnel and passing stitch removed while carefully noting the tensioning stitches. The graft was then dunked about 15 mm into the tibial socket. 8x12 mm ABS button was then loaded to the ABS loop and IB FiberTapes and tension sutures used to bring the cortical button down to bone. The graft was advanced equally on both femoral and tibial sides and then provisionally tensioned. The knee was then cycled 22 times, tensioning rechecked, and final tightening done with the knee in full extension with a moderate reverse Junior maintained. The graft position and tension were appropriate. There was no impingement in full extension. Junior exam was rock stable. Femoral passing sutures were removed. Backup knots were then tied on both sides and suture tails cut. The internal brace fiber tapes were then tied over the tibial cortical button. The knee and all portals were copiously irrigated and then knee drained of arthroscopic fluid. 3-0 Monocryl was used to close the portals and small incisions in a buried interrupted fashion. 2-0 Monocryl and 3-0 Monocryl was used to close the larger lateral femoral incision. Mastisol, Steri-Strips, Xeroform, 4 x 4 gauze, and sterile soft roll was applied. The extremity was wrapped gently with an Blade bandage. A soft knee immobilizer placed. The patient awoke from anesthesia without complication and was transferred to the recovery room in a stable condition.
--- NOTE | 2023-03-28 07:04 | PDOC.DSDIS_ITS ---
Date of service: 03/28/23 Time of Service: 07:04 Discharge Plan Disposition Patient Disposition: Home Discharge Details Attending Provider: Ej Bueno Primary Care Provider: Sophia Kelsey Home Meds and New Rx's Prescriptions: New naproxen 250 mg tablet 250 - 500 mg PO BID PRNQty: 40 0RF Rx Instructions: take with a meal aspirin 81 mg tablet,delayed release (DR/EC) 81 mg PO DAILY 14 Days Qty: 14 0RF Continued Vyvanse 40 mg capsule 40 mg PO DAILY risperidone [Risperdal] 1 mg tablet 1 mg PO BID buprenorphine-naloxone [Suboxone] 8-2 mg film 1 film buccal Q24H buprenorphine-naloxone [Suboxone] 12-3 mg film 1 film buccal Q24H lisinopril 10 mg tablet 10 mg PO DAILY Qty: 30 3RF clonidine HCl 0.2 mg tablet 0.2 mg PO Q12H PRN Rx Instructions: Last RX'd by [facility] October 2022 venlafaxine 150 mg capsule,extended release 24hr 150 mg PO DAILY Qty: 4 0RF Rx Instructions: Last Rx'd by [facility] melatonin 3 mg capsule 6 mg PO HS PRN Rx Instructions: Last RX'd by [facility]. hydroxyzine pamoate [Vistaril] 50 mg capsule 50 mg PO QID PRN (Reason: itching) Qty: 30 0RF Rx Instructions: Last RX'd by [facility] 11/19/22. -hb gabapentin 300 mg capsule 300 mg PO TID Rx Instructions: Last RX'd by [facility] on 11/19/2022. -hb triamcinolone acetonide 0.025 % cream 1 applic topical DAILY PRN (Reason: rash) Qty: 15 2RF Rx Instructions: apply 0.25gm to face daily prn seborrhea Discharge Instructions Additional Instructions: Surgery: Left knee arthroscopy with quadriceps allograft ACL reconstruction with internal brace and partial medial meniscectomy Activity: Weightbearing as tolerated. Advance range of motion as comfort allows. No knee brace or crutches needed as soon as comfortable. Recommend ice and elevation to minimize swelling and discomfort. Wiggle toes and move ankle up and down to increase circulation and prevent blood clot. Avoid twisting, pivoting, and sports for about 6-9 months. A physical therapy prescription will be sent electronically to start in 2 to 3 weeks. Prescriptions: Aspirin 81 mg take 1 daily to prevent a blood clot for 14 days Naproxen 250 mg take 1-2 every 12 hours with a meal as needed for moderate pain You may use [id number] Tylenol (acetaminophen) as needed for mild pain. These pain medications may be taken all at once or in different combinations as needed. Also, recommend Colace (docusate) as a stool softener as surgery and pain medicine cause constipation. You may try [id number] diphenhydramine (Benadryl) 25-50 mg nightly as a sleep aid Dressings: Leave dressing in place for 3 days. May then remove and leave open to air or cover incisions with Band-Aids. Leave the sticky Steri-Strips in place until they fall off or remove them after you shower. May shower after 5 days. Follow-up: 10-[address] Bueno You may take off the leg compression stockings this evening at home. You may also leave them on a few days longer if you have a history of leg swelling or edema. Let us know right away if you develop any redness, drainage, fevers, chest pain, or trouble breathing. Do not drink alcohol or drive for at least 24 hours after anesthesia. Please call the office during business hours with any questions or concerns. Stand Alone Forms: Anesthesia Discharge Inst., Anes.Nerve Block Instructions, Crutch Training Instructions, Jessenia Rodrigues (DSU) Referrals: Ej Bueno MD [ [facility] STAFF PHYSICIAN] - 04/08/23 2:30 pm Discharge Orders Discharge Orders: Discharge Order (Routine); Ordered 03/28/23 Ordered By: Ej Bueno DS: Diagnosis Discharge Diagnosis (1) Left ACL tear: Status: Acute (2) Derangement of medial meniscus of left knee due to old injury: Status: Acute
[2023-03-28] MEDS: Lactated Ringers 1,000 ML 30 ML IV (07:28)
[2023-03-28] MEDS: ceFAZolin 2 GM/50 ML BAG IVPB (07:45)
--- NOTE | 2023-03-28 08:06 | W.ANESNERVE ---
Nerve Block Single Injection Procedure Date and Time Date Performed: 03/28/23 Procedure Start: 07:30 Location Where Procedure Performed Procedure Location: Day Surgery Unit Reason Performed: Postoperative Analgesia Requesting Provider: Ej Bueno Timeout Performed Timeout Performed: Yes Monitoring Used ECG, Blood Pressure, SpO2 and See EMR for corresponding vital signs Sterility Sterility: Hand Hygiene, Surgical Cap, Surgical Mask, Sterile Gloves and Chlorhexidine Sedation Given During Procedure Sedation Given (Indicate Dose Given): Versed IV Dose:: 3mg Patient Mental Status Patient Mental Status: Sedate with meaningful communication Nerve Block 1st Nerve Block: Laterality: Left Block Type: iPACK Ultrasound Image Saved?: Yes Needle / Catheter Used: 100mm SonoPlex II Local Anesthetic Bolus (Indicate Dose Given): Lidocaine used for local infiltration of skin, Injected in 3-5ml increments after negative blood aspiration, Bupivacaine 0.5% Dose:: 10ml and Exparel Dose:: 10ml Additives (Indicate Dose Given): None Ultrasound: Sterile probe cover and gel used Nerve Stimulator: Not Used Paresthesia: None Procedure Tolerated: No Complications and Patient tolerated well Procedure Outcome: Successful Procedure Comment: right lateraL Performed By: Yifan Pop 2nd Nerve Block: Laterality: Left Block Type: Adductor Canal Ultrasound Image Saved?: Yes Needle / Catheter Used: 100mm SonoPlex II Local Anesthetic Bolus (Indicate Dose Given): Lidocaine used for local infiltration of skin, Injected in 3-5ml increments after negative blood aspiration, Bupivacaine 0.5% Dose:: 10 ml and Exparel Dose:: 10ml Additives (Indicate Dose Given): None Ultrasound: Sterile probe cover and gel used Nerve Stimulator: Not Used Paresthesia: None Procedure Tolerated: No Complications and Patient tolerated well Procedure Outcome: Successful Procedure Comment: SUPINE Performed By: Yifan Pop
[2023-03-28] MEDS: Tranexamic Acid 1,000 MG/10 ML VIAL 1000 MG (08:15)
[2023-03-28] MEDS: EPINEPHrine 30 MG/30 ML VIAL (10:08)
--- NOTE | 2023-03-28 11:44 | W.ANESPOSTOP ---
Postoperative Evaluation Date, Time and Location Date Performed: 03/28/23 Time Performed: 11:44 Patient Location: PACU Vital Signs Most Recent Imported Vital Signs: Most Recent Vital Signs Temp Pulse Resp BP Pulse Ox 36.4 C L 68 11 L 120/71 99 03/28/23 11:37 03/28/23 11:37 03/28/23 11:37 03/28/23 11:37 03/28/23 11:37 Pain Score Most Recent Pain Score: Most Recent Pain Score Pain Level 1 03/28/23 11:37 Assessment Mental Status: Awake (Alert & Oriented to Patient Baseline) Airway and Respiratory Function: Patent airway with normal (patient baseline) respiratory exam Cardiovascular Function: Hemodynamically Stable Hydration Status: Adequately Hydrated Nausea & Vomiting: No Nausea or Vomiting Pain: Pain is tolerable per patient Peripheral Nerve Block: Regional nerve block not resolved at time of post operative discharge Postoperative Comments:: Discussed that pt. would be a fall risk if he were to be up and about given the nerve blocks he received. This is low risk but was communicated.
== END 2023-03-28 13:37 | disposition home or self-care (01) ==
PROVIDERS: PCP Family Medicine; Visit Provider Student in an Organized Health Care Education/Training Program
PROC: (CPT 29888; principal; 2023-03-28 07:30)
DX: M23.232 Derangement of other medial meniscus due to old tear or injury, left knee; M23.8X2 Other internal derangements of left knee; I10 Essential (primary) hypertension; F17.210 Nicotine dependence, cigarettes, uncomplicated
CPT/HCPCS: 29881; 29888; 76942; J0131; J0690; J1100; J1885; J2250; J2405; J2704

== ENCOUNTER 2023-05-06 15:33 | Outpatient (CLI) | payer MEDICAID, SELFPAY ==
--- NOTE | 2023-05-06 14:30 | DI.RAD_ITS ---
Exam(s) XR KNEE LT 3V AP,LAT,AMY EXAM: XR KNEE LT 3V AP,LAT,AMY CLINICAL HISTORY: LEFT KNEE PAIN. TECHNIQUE: 2D digital imaging was performed. COMPARISON: CR XR KNEE LT 4V+ from 11/07/2021 FINDINGS: 3 views There has been interval ACL surgery. ACL channel and fixation devices now evident. Mild degenerativ e changes again noted. Small joint effusion. No radiographic evidence of osteomyelitis. IMPRESSION: Post ACL surgery as described above DATA REPOSITORY: RADIATION DOSE DELIVERED:
== END 2023-05-06 15:34 | disposition home or self-care (01) ==
LOC: DIORS 15:33
PROVIDERS: PCP Family Medicine; Referring Provider Family Medicine; Visit Provider Physician Assistant
DX: M25.562 Pain in left knee (principal); Z98.890 Other specified postprocedural states; Z96.7 Presence of other bone and tendon implants
CPT/HCPCS: 73562

== ENCOUNTER 2023-07-29 11:03 | Outpatient (CLI) | payer MEDICAID, SELFPAY ==
[2023-08-01 13:54] LABS: Testosterone, Total 70 ng/dL (240-950)
== END 2023-07-29 11:04 | disposition home or self-care (01) ==
LOC: LBO 11:03
PROVIDERS: PCP Family Medicine; Visit Provider Family Medicine
DX: F11.21 Opioid dependence, in remission (principal)
CPT/HCPCS: 36415; 84403

== ENCOUNTER 2023-09-05 04:15 | Outpatient (CLI) | payer MEDICAID, SELFPAY ==
[2023-09-05 10:43] LABS: HGB 15.3 g/dL (13.5-17.5); MCH 28.9 pg (27.0-33.0); MCV 85 fL (80-95); MPV 10.3 fL (8.0-11.0); Platelet Count 143 10^3/uL (130-400); RDW 13.7 % (11.8-14.1); RDW-SD 42.5 fL; WBC 8.77 10^3/uL (4.4-10.8)
[2023-09-09 12:44] LABS: Testosterone, Total 115 ng/dL (240-950)
== END 2023-09-05 04:16 | disposition home or self-care (01) ==
LOC: LBO 04:15
PROVIDERS: PCP Family Medicine; Visit Provider Family Medicine
DX: E29.1 Testicular hypofunction (principal)
CPT/HCPCS: 36415; 84403; 85027

== ENCOUNTER 2023-11-04 02:50 | Outpatient (CLI) | payer MEDICAID, SELFPAY ==
[2023-11-11 12:04] LABS: Testosterone, Free 9.73 ng/dL (4.46-17.1); Testosterone, Total 354 ng/dL (240-950)
== END 2023-11-04 02:51 | disposition home or self-care (01) ==
LOC: LBO 02:50
PROVIDERS: PCP Family Medicine; Visit Provider Family Medicine
DX: E29.1 Testicular hypofunction (principal)
CPT/HCPCS: 36415; 84402; 84403

== ENCOUNTER 2024-01-08 10:16 | Emergency (ER) | payer MEDICAID, SELFPAY ==
[2024-01-08 10:22] VITALS: BP 178/129; PULSE 115; RESP 18; TEMP 36.6; O2SAT 94
--- NOTE | 2024-01-08 10:32 | ED.GENADUL_ITS ---
Discharge Plan Disposition Patient Disposition: Home Condition: Stable Discharge Details Chief Complaint: PsychEval Clinical Impression: Problem, psychiatric Primary Care Provider: Sophia Kelsey ED Provider: Eugene Handy Home Meds and New Rx's Prescriptions: No Action lisdexamfetamine [Vyvanse] 40 mg capsule 40 mg PO DAILY buprenorphine-naloxone [Suboxone] 8-2 mg film 1 film buccal Q24H buprenorphine-naloxone [Suboxone] 12-3 mg film 1 film buccal Q24H lisinopril 10 mg tablet 10 mg PO DAILY Qty: 90 3RF triamcinolone acetonide 0.025 % cream 1 applic topical DAILY PRN (Reason: rash) Qty: 15 0RF Rx Instructions: apply 0.25gm to face daily prn seborrhea quetiapine [Seroquel] 400 mg tablet 450 mg PO BID clonidine HCl 0.2 mg tablet 0.2 mg PO Q12H PRN Rx Instructions: Last RX'd by [facility] October 2022 melatonin 3 mg capsule 6 mg PO HS PRN Rx Instructions: Last RX'd by [facility]. gabapentin 300 mg capsule 300 mg PO TID Rx Instructions: Last RX'd by [facility] on 11/19/2022. -hb testosterone cypionate 200 mg/mL oil 200 mg IM Q2W Qty: 1 5RF naproxen 250 mg tablet 250 - 500 mg PO BID PRNQty: 40 0RF Rx Instructions: take with a meal Discharge Instructions Additional Instructions: Please follow-up with [facility] human services. Please return to the emerged part for any worsening symptoms HPI General Date/Time Provider Initiated Documentation: 01/08/24 10:29 . HPI Narrative: 43-year-old male history of major depression with psychotic features on quetiapine, substance abuse on buprenorphine, presents with worsening depression anxiety and feeling as if he is losing touch with reality; patient denies SI denies HI, lives with his parents feels safe. Related Data Home Medications Medication Instructions Recorded Confirmed clonidine HCl 0.2 mg tablet 0.2 mg PO Q12H PRN 12/04/22 01/08/24 gabapentin 300 mg capsule 300 mg PO TID 12/04/22 01/08/24 melatonin 3 mg capsule 6 mg PO HS PRN 12/04/22 01/08/24 buprenorphine 12 mg-naloxone 3 mg 1 film buccal Q24H 01/03/23 01/08/24 sublingual film (Suboxone) buprenorphine 8 mg-naloxone 2 mg 1 film buccal Q24H 01/03/23 01/08/24 sublingual film (Suboxone) lisdexamfetamine 40 mg capsule 40 mg PO DAILY 01/03/23 01/08/24 (Vyvanse) naproxen 250 mg tablet 250 - 500 mg (1 - 2 x 250 mg) PO 03/28/23 01/08/24 BID PRN #40 tabs triamcinolone acetonide 0.025 % 1 applic topical DAILY PRN rash 08/06/23 01/08/24 topical cream #15 grams quetiapine 400 mg tablet (Seroquel) 450 mg PO BID 09/24/23 01/08/24 lisinopril 10 mg tablet 10 mg PO DAILY #90 tabs 11/14/23 01/08/24 testosterone cypionate 200 mg/mL 200 mg IM Q2W #1 mL 11/19/23 01/08/24 intramuscular oil Previous Rx's Medication Instructions Recorded naproxen 250 mg tablet 250 - 500 mg (1 - 2 x 250 mg) PO 03/28/23 BID PRN #40 tabs triamcinolone acetonide 0.025 % 1 applic topical DAILY PRN rash 08/06/23 topical cream #15 grams lisinopril 10 mg tablet 10 mg PO DAILY #90 tabs 11/14/23 testosterone cypionate 200 mg/mL 200 mg IM Q2W #1 mL 11/19/23 intramuscular oil Allergies Allergy/AdvReac Type Severity Reaction Status Date / Time No Known Allergies Allergy Verified 01/08/24 10:20 General Stated Complaint: PsychEval PACO: 3 Review of Systems Narrative: Review of Systems Constitutional: negative Eyes: negative ENT: negative Cardiovascular: negative Respiratory: negative Gastrointestinal: negative : negative Musculoskeletal: negative Skin: negative Neurologic: negative Psych: Anxiety depression, loss of sense of reality Exam Narrative Exam Narrative: Physical Examination General: alert, awake, cooperative, resting comfortably HEENT: normocephalic, atraumatic; PERRL, EOM intact, conjunctiva normal; no nasal discharge; moist mucous membranes, oral and pharyngeal mucosa normal, tolerating secretions Neck: supple, trachea midline; full ROM Chest: normal to inspection Respiratory: normal respiratory effort, speaking in full sentences Skin: no lesions, rashes or trauma appreciated Neuro: AAOx3, normal speech, moving all extremities Psych: Appears anxious, responding to internal stimuli, no HI no SI Course Vital Signs Vital signs: Vital Signs Temperature 36.6 C 01/08/24 10:22 Pulse 115 H 01/08/24 10:22 Respiratory Rate 18 01/08/24 10:22 Blood Pressure 178/129 H 01/08/24 10:22 Pulse Oximetry 94 01/08/24 10:22 Temperature 36.6 C 01/08/24 10:22 Temperature Source Temporal Artery Scan 01/08/24 10:22 Pulse 115 H 01/08/24 10:22 Respiratory Rate 18 01/08/24 10:22 Respiratory Effort Normal, Non-Labored 01/08/24 10:25 Blood Pressure 178/129 H 01/08/24 10:22 Blood Pressure Position Sitting 01/08/24 10:22 Pulse Oximetry 94 01/08/24 10:22 Oxygen Delivery Method Room Air 01/08/24 10:22 Oxygen Flow Rate 0 01/08/24 10:22 Pain Level 0 01/08/24 10:22 Medical Decision Making 43-year-old male history of major depression with psychotic features on quetiapine, history of opioid abuse on buprenorphine, presents with feeling out of touch with reality, worsening anxiety and depression, responding to internal stimuli, no SI no HI, calm and redirectable although does appear anxious. Patient will need mental health evaluation. No evidence of trauma infection or intoxication at this time. Will provide anxiolysis. Patient be moved to zone B. 14: 06 patient does not wish to stay. Becoming combative with staff. Quality:SDOH Health Related Social Needs: No Data to Display PFSH All Active Problems (Updated 01/08/24 @ 14:07 by Eugene Handy MD) Problem, psychiatric (Acute) Chronic left shoulder pain (Acute) Hypertension (Chronic) Hypogonadism, male (Chronic 03/24/18) Prior appt Dr. Charles at [facility] in [place], lost to FU; testosterone gel not effective, IM injections with improved levels Tobacco abuse (Chronic 11/19/17) 1 ppd Opioid dependence in remission (Chronic) using Suboxone through [facility]. Major depressive disorder, recurrent, severe with psychotic symptoms (Acute) H/o Hospitalization at [facility]; psych meds managed through [facility]. 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 Meets with therapist twice monthly; has had take-home in the past. ADD (attention deficit disorder) Surgical History (Updated 05/02/23 @ 10:16 by Sophia Kelsey MD) S/P ACL reconstruction (2022) S/P hernia repair Family History Mother Diabetes Cancer thyroid cancer Father Diabetes Essential hypertension Paternal Grandfather No problems noted. Maternal Grandfather Stroke Paternal Uncle Cancer stomach cancer Other Family history of diabetes mellitus (DM) Social History Smoking/Tobacco Use Status: Current every day Tobacco Type: cigarettes Quit status: considering quitting Counseling given: provider counseling Smoking risk assessment performed?: Yes Alcohol Intake: former Year quit: 2021 Counseling given: Yes Drug use: Current Sobriety Substance use type: does not use Counseling provided: treatment program Details: Pt. states its been years since use. 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
[2024-01-08] MEDS: LORazepam 1 MG TAB PO (10:48)
--- NOTE | 2024-01-08 11:32 | CMSP_ITS ---
Date of service: 01/08/24 Time of Service: 11:32 Care Management Safety Plan Status Status: Voluntary Reason for Wait Reason for Wait: Inpatient Admission Safety Plan Safety Plan: VOLUNTARY FOR INPATIENT PSYCHIATRIC STABILIZATION.? Patient is appropriate in all interactions since arriving at [facility]; Pt has demonstrated appropriate coping and communication skills, has articulated his or her needs and concerns and is fully engaged during staff interactions. Safety plan has been established with patient, and care team, to adhere to patient goals, identify restrictions based on behavioral status, address nutrition, and determine allowed personal belongings, tools for hygiene and personal care. Determine level of activity including ambulation, level of supervision, visitors, and determine privileges based on behaviors and level of engagement by pt. SAFETY PLAN: 1. Will remain on suicide precautions, in paper clothes 2. Will remain in Zone B under direct supervision of one-on-one staff at all times provided by [employer]; JAYDEN, BAND CUTTING MACHINE OPERATOR duck bill operator. 3. May have paper cups, plates, finger foods as well as a cardboard spoon with which to eat meals. 4. Follow [facility] Management of the Admitted Behavioral Health Patient policy. 5. Shower available in Zone B without restriction. 6. Personal belongings-soft items permitted at RN discretion. 7. Visitors-none at this time. 8. Activities: soft cart items approved per RN discretion. 9.? Bathroom available in Zone B without restriction. 10. Phone: limited to [facility] cordless phone at RN discretion. Due to VOLUNTARY status, if patient wishes to leave [facility], staff will contact [facility] Crisis Screener ([phone]) and Fish Protector ([phone]) as soon as possible. In the event of elopement, notify [facility] Police ([phone]). Patient is currently voluntarily at [facility] and seeking inpatient admission when a bed becomes available. [facility] Frontline Sys Dir will continue seeking placement. Please contact the Fish Protector ([phone]) and [facility] Sys Dir ([phone]) for any needed changes in the Safety Plan. Safety plan has been provided to interdepartmental care team.
--- NOTE | 2024-01-08 11:32 | PDOC.CMSAFE ---
Date of service: 01/08/24 Time of Service: 11:32 Care Management Safety Plan Status Status: Voluntary Reason for Wait Reason for Wait: Inpatient Admission Safety Plan Safety Plan: VOLUNTARY FOR INPATIENT PSYCHIATRIC STABILIZATION.? Patient is appropriate in all interactions since arriving at [facility]; Pt has demonstrated appropriate coping and communication skills, has articulated his or her needs and concerns and is fully engaged during staff interactions. Safety plan has been established with patient, and care team, to adhere to patient goals, identify restrictions based on behavioral status, address nutrition, and determine allowed personal belongings, tools for hygiene and personal care. Determine level of activity including ambulation, level of supervision, visitors, and determine privileges based on behaviors and level of engagement by pt. SAFETY PLAN: 1. Will remain on suicide precautions, in paper clothes 2. Will remain in Zone B under direct supervision of one-on-one staff at all times provided by [employer]; JAYDEN, CLOUD SUBJECT MATTER EXPERT fluid jet cutter operator. 3. May have paper cups, plates, finger foods as well as a cardboard spoon with which to eat meals. 4. Follow [facility] Management of the Admitted Behavioral Health Patient policy. 5. Shower available in Zone B without restriction. 6. Personal belongings-soft items permitted at RN discretion. 7. Visitors-none at this time. 8. Activities: soft cart items approved per RN discretion. 9.? Bathroom available in Zone B without restriction. 10. Phone: limited to [facility] cordless phone at RN discretion. Due to VOLUNTARY status, if patient wishes to leave [facility], staff will contact [facility] Crisis Screener ([phone]) and Export Traffic Department Manager ([phone]) as soon as possible. In the event of elopement, notify [facility] Police ([phone]). Patient is currently voluntarily at [facility] and seeking inpatient admission when a bed becomes available. [facility] Frontline Supervisor Lump Room will continue seeking placement. Please contact the Export Traffic Department Manager ([phone]) and [facility] Supervisor Lump Room ([phone]) for any needed changes in the Safety Plan. Safety plan has been provided to interdepartmental care team.
[2024-01-08 12:06] LABS: *AMPHETAMINES SCREEN URINE Positive (Negative); *BARBITURATES SCREEN URINE Negative (Negative); *BENZODIAZEPINES SCREEN URINE Negative (Negative); Cannabinoids THC Negative (Negative); Cocaine Screen,Urine Negative (Negative); METHADONE URINE SCREEN Negative (Negative); OPIATES URINE SCREEN Negative (Negative)
[2024-01-08 12:08] LABS: Tricyclic Antidepressants Negative (Negative)
--- NOTE | 2024-01-08 12:17 | PDOC.MHCN_ITS ---
Date of service: 01/08/24 Time of Service: 12:18 Mental Health Emergency Note Release NK release signed:: Yes Reason for Visit The client presented to the ED this am seeking help with his auditory hallucinations. He is a client of the [facility] program for [facility] and has been living with his parents in [facility]. He has been hospitalized before and his last per his report was last spring where he went to . The client has not been consistent with his outpatient treatment. In the last 2 weeks has the pt presented for ES prior to today?: Unknown Client Information Client is: [facility] Well Housed: Yes Non Suicidal Self Injury Current: No History: No Safety Risk/Harm to Self or Others Current Ideation to Harm Self or Others: No Risk: Does risk to harm exist?: No Risk: Moderate Risk (Due to his auditory hallucinations. The client denied any visual hallucinations. ) Duty to warn indicated: No Asssessment/Mental Status Appearance: Disheveled and Poor hygiene Attitude: Cooperative Behavior: Agitated and Repetitive movements Speech: Normal and Loud Affect: Expansive Mood: Stressed, Anxious and Irritable Thought process: Racing and Loose associations Hallucinations: yes, Auditory Delusions: No Attention: Wandering Perception: Not impaired Orientation: Fully orientated Memory: Intact Insight: Fair Judgement: Fair Neurovegetative Symptoms Sleep: Decrease Appetitie: Decrease Interests: Decrease Energy: Increase Libido: Not applicable Substance Use: Other (The client denied ETOH use today however, reported heavy use on 01.07.24 to his bottle caser. ) Do you use nicotine?: Yes Have you used substances in the last 7 days?: yes, unknown for sure Additional Issues: Assaultive/Threatening Behavior: No Medical Concerns: No Client engaged in active self harm w/weapon: No Threatening to run away: No Child reported abuse/neglect: No Voluntarily presenting for services: Yes Domestic violence is a concern: No Extreme Psychosis or extreme behavior is present: Yes Impression The client is a 43 year old, single, CaucasianThe client is a 43 year old, single, male who receives services through the [facility] program with [facility]. He lives with his parents in [facility]. The client denied SI and HI today but by hx has had SI with plan and intent and done self harming things (cutting, jumping into river when he cannot swim). He was last hospitalized per his report last spring at . No screening tools were able to be completed today due to the client's disorganized thoughts. The client was offered the CARE Bed which was discussed with him on 01.07.24 however once this was explained to him again he stated he needed a higher level of care than the CARE Bed. Per this clinician's observations of significant AH's it is this clinician's professional opinion that he is too acute for a crisis bed and would be better served in an inpatient treatment facility. Per an ES assessment done by ES clinician Balta on 05.17.22 client reports that he drinks 1/2 gallon of vodka in a 24 hour period. Client has not drank since 05/15/22. He denied substance use even though on 01.07.24 he disclosed to his service providers Denise he was actively using ETOH daily. He did not appear to under the influence when assessed on 01.08.24. THe client presented to the ED and was observed pacing in Zone B talking to what appeared to be AH. The client was engaged as much as he could be. He however, was observed being distracted by his AH and was observed speaking to them. It appeared the voice on his left side was aggressive and the one to his right was more calm. This was evidenced by the tone he took with speaking to each side. He was asked if he had any visual hallucinations to which, he denied. He did note that there were numerous voices but he could not pinpoint how many. He was heard stating to these hallucinations I'm losing it. I'll say what I want. You can't dictate. You gotta go. Those are not my thoughts. Then to this clinician after hearing a conversation: Listen, People are going to say I swallowed a bunch of illegal drugs this morning and that is not true. He is denying SI and HI. He has natural supports with his parents and professional supports to include psychiatry, case management, and therapy through [facility] however, via a chart review he has missed several of these appointments lately. His PCP is Dr. Wasserman with [facility]. He identified his strength as being an empath. He reported his needs as needing positive people. He reported having legal issues but did not want to discuss these. Via the P blog it was learned that he is being charged with 2nd degree aggravated domestic assault, domestic assault, resisting arrest and violation of conditions of release and reported that he is taking his medications as prescribed. The client denied medical issues. He was pleasant and voluntarily seeking inpatient treatment. The client reported a family history of NV, SA and denied a family history of LI and Suicide. He has a high school education and is is currently disabled. Plan/Disposition Recommended Disposition: Hospitalization (The client left the ED prior to referrals being made. ) No. Plan: Approximately 1pm today the client wanted to leave and not seek treatment. This clinician and bottle caser Heroux with bottle caser Susan via zoom arrived to [facility] to discuss the client's plan to leave with a safety plan or to continue to accept treatment. He agreed to accept. Then at approximately 2pm he left the ED AMA however, there was nothing this clinician could hold the client on an involuntary basis so the client was d/c from the ED. The client left prior to referrals being sent. Person reported agreement to plan: No Reports/communication Outcome discussed with: ED/Personnel
== END 2024-01-08 14:21 | disposition home or self-care (01) ==
PROVIDERS: Emergency Provider Emergency Medicine; PCP Family Medicine
DX: F32.A Depression, unspecified (principal); F41.9 Anxiety disorder, unspecified; F17.210 Nicotine dependence, cigarettes, uncomplicated
CPT/HCPCS: 00123; 80307; 99284

== ENCOUNTER 2024-01-10 10:01 | Emergency (ER) | payer MEDICAID, SELFPAY ==
[2024-01-10 10:05] VITALS: BP 173/104; PULSE 101; RESP 18; TEMP 36.6; O2SAT 96
--- NOTE | 2024-01-10 10:08 | ED.GENADUL_ITS ---
Discharge Plan Disposition Patient Disposition: Home Condition: Stable Discharge Details Chief Complaint: PsychEval Clinical Impression: Problem, psychiatric Primary Care Provider: Sophia Kelsey ED Provider: Eugene Handy Home Meds and New Rx's Prescriptions: No Action lisdexamfetamine [Vyvanse] 40 mg capsule 60 mg PO DAILY buprenorphine-naloxone [Suboxone] 8-2 mg film 1 film buccal Q24H Patient Comments: confirmed with [facility] 01/11/24 buprenorphine-naloxone [Suboxone] 12-3 mg film 1 film buccal Q24H Patient Comments: confirmed with [facility] 01/11/24 lisinopril 10 mg tablet 10 mg PO DAILY Qty: 90 3RF triamcinolone acetonide 0.025 % cream 1 applic topical DAILY PRN (Reason: rash) Qty: 15 0RF Rx Instructions: apply 0.25gm to face daily prn seborrhea quetiapine [Seroquel] 400 mg tablet 450 mg PO BID clonidine HCl 0.2 mg tablet 0.2 mg PO Q12H PRN Rx Instructions: Last RX'd by Patricia [place] October 2022 melatonin 3 mg capsule 6 mg PO HS PRN Rx Instructions: [facility] [place] gabapentin 300 mg capsule 300 mg PO TID Rx Instructions: Last RX'd by Patricia [place] on 11/19/2022. -hb testosterone cypionate 200 mg/mL oil 200 mg IM Q2W Qty: 1 5RF naproxen 250 mg tablet 250 - 500 mg PO BID PRNQty: 40 0RF Rx Instructions: take with a meal HPI <Leobardo Guaman NP - Last Filed: 01/10/24 15:34> General Mode of arrival: ambulatory . Date/Time Provider Initiated Documentation: 01/10/24 10:02 . Limitations to Documentation: no limitations . Information obtained by: patient and RN notes reviewed . History of Present Illness 43 year old M presents to the emergency department with the chief complaint of Anxiety and auditory hallucinations, described as moderate, severe and similar to prior episodes, Patient started experiencing this week(s) and it has been constant. No relieving factors improve symptom(s), No exacerbating factors reported . Patient notes no other symptoms.. Patient did receive the following treatments prior to arrival, none Related Data Home Medications Medication Instructions Recorded Confirmed clonidine HCl 0.2 mg tablet 0.2 mg PO Q12H PRN 12/04/22 01/10/24 gabapentin 300 mg capsule 300 mg PO TID 12/04/22 01/10/24 melatonin 3 mg capsule 6 mg PO HS PRN 12/04/22 01/10/24 buprenorphine 12 mg-naloxone 3 mg 1 film buccal Q24H 01/03/23 01/10/24 sublingual film (Suboxone) buprenorphine 8 mg-naloxone 2 mg 1 film buccal Q24H 01/03/23 01/10/24 sublingual film (Suboxone) lisdexamfetamine 40 mg capsule 60 mg PO DAILY 01/03/23 01/11/24 (Vyvanse) naproxen 250 mg tablet 250 - 500 mg (1 - 2 x 250 mg) PO 03/28/23 01/10/24 BID PRN #40 tabs triamcinolone acetonide 0.025 % 1 applic topical DAILY PRN rash 08/06/23 01/10/24 topical cream #15 grams quetiapine 400 mg tablet (Seroquel) 450 mg PO BID 09/24/23 01/10/24 lisinopril 10 mg tablet 10 mg PO DAILY #90 tabs 11/14/23 01/10/24 testosterone cypionate 200 mg/mL 200 mg IM Q2W #1 mL 11/19/23 01/10/24 intramuscular oil Previous Rx's Medication Instructions Recorded naproxen 250 mg tablet 250 - 500 mg (1 - 2 x 250 mg) PO 03/28/23 BID PRN #40 tabs triamcinolone acetonide 0.025 % 1 applic topical DAILY PRN rash 08/06/23 topical cream #15 grams lisinopril 10 mg tablet 10 mg PO DAILY #90 tabs 11/14/23 testosterone cypionate 200 mg/mL 200 mg IM Q2W #1 mL 11/19/23 intramuscular oil Allergies Allergy/AdvReac Type Severity Reaction Status Date / Time No Known Allergies Allergy Verified 01/10/24 10:09 General Stated Complaint: PsychEval PACO: 3 Review of Systems <Leobardo Guaman NP - Last Filed: 01/10/24 15:34> Constitutional Constitutional: Denies body ache(s), Denies chills and Denies fever(s) Eyes Eyes: Denies change in vision ENT Ears, Nose, Mouth, and Throat: Denies sore throat Cardiovascular Cardiovascular: Denies chest pain and Denies dyspnea Respiratory Respiratory: Denies cough and Denies dyspnea Gastrointestinal Gastrointestinal: Denies abdominal pain, Denies diarrhea, Denies nausea and Denies vomiting Psychiatric Psychiatric: Reports as per HPI, Reports anxiety, Reports auditory hallucinations, Denies hopelessness, Denies panic attacks, Denies paranoia, Denies visual hallucinations, Denies hallucinations, Denies homicidal ideation and Denies suicidal ideation Exam <Leobardo Guaman NP - Last Filed: 01/10/24 15:34> Const General: cooperative Orientation: alert, awake and oriented x3 Limitations: mental status not altered HENFL Head: normal to inspection, normocephalic and atraumatic Ears: hearing grossly normal bilaterally Mouth: moist mucous membranes Eyes General: appearance normal, both eyes and all related structures Resp Effort & Inspection: normal respiratory effort, able to speak in complete sentences and no respiratory distress Auscultation: clear to auscultation bilaterally Cardio Rate: regular rate and not tachycardic Rhythm: regular rhythm Heart Sounds: S1 normal, S2 normal, no click, no gallops, no murmurs and no rubs Neuro General: patient alert, patient awake, patient oriented x3, gait normal, moves all extremities and no focal motor deficits Speech: speech normal Psych Appearance: disheveled Speech and Movement: speech and movement normal and speech clear Mood: anxious mood Attitude: cooperative Thought Content: hallucinations auditory, no homicidality, no obsessions and suicidality Medical Decision Making <Leobardo Guaman NP - Last Filed: 01/10/24 15:34> Patient presenting to the emergency department for chief complaint of auditory hallucinations and anxiety. Patient states that he has been having trouble recently with knowing what is real or not real due to auditory hallucinations. Patient denies suicidal ideations or homicidal ideations, change with substance abuse, denies recent alcohol intake, denies any withdrawal. Patient was here a couple days ago for similar which he stated was more mild at that point and decided to leave AGAINST MEDICAL ADVICE but was here voluntarily. Patient is here voluntarily again and seeking reassessment for voluntary admission due to him not being able to manage his symptoms. He does state he has been taking his medication as prescribed. Patient has history of major depression with psychotic features on quetiapine, history of opioid abuse on buprenorphine. Physical exam is noncontributory, patient is responding to auditory hallucinations that seem to be taunting him but adamantly denies any suicidal thoughts or suggestions along with homicidal soft thoughts or suggestions, patient denies any visual hallucinations. Will check labs just to ensure no metabolic or other medical source for his auditory hallucinations. Given his anxiety will give him p.o. Ativan pending results. Reviewed patient's labs and no concerning findings noted, no alcohol inpatient system, he is positive for amphetamines otherwise his screening is negative. I do feel that patient can be safely moved to [facility] and is clear for psychiatric evaluation After mental health evaluation patient is pending voluntary placement. P.o. Ativan did help with patient's anxiety so will place a as needed order to keep patient calm and reduce anxiety pending admission. Medical Records Medical records reviewed: Yes I reviewed the patient's medical records. Lab Data Lab results reviewed: Yes I reviewed the patient's lab results. Quality:[facility] Health Related Social Needs: No Data to Display <Eugene Handy MD - Last Filed: 01/13/24 11:27> Patient presenting to the emergency department for chief complaint of auditory hallucinations and anxiety. Patient states that he has been having trouble recently with knowing what is real or not real due to auditory hallucinations. Patient denies suicidal ideations or homicidal ideations, change with substance abuse, denies recent alcohol intake, denies any withdrawal. Patient was here a couple days ago for similar which he stated was more mild at that point and decided to leave AGAINST MEDICAL ADVICE but was here voluntarily. Patient is here voluntarily again and seeking reassessment for voluntary admission due to him not being able to manage his symptoms. He does state he has been taking his medication as prescribed. Patient has history of major depression with psychotic features on quetiapine, history of opioid abuse on buprenorphine. Physical exam is noncontributory, patient is responding to auditory hallucinations that seem to be taunting him but adamantly denies any suicidal thoughts or suggestions along with homicidal soft thoughts or suggestions, patient denies any visual hallucinations. Will check labs just to ensure no metabolic or other medical source for his auditory hallucinations. Given his anxiety will give him p.o. Ativan pending results. Reviewed patient's labs and no concerning findings noted, no alcohol inpatient system, he is positive for amphetamines otherwise his screening is negative. I do feel that patient can be safely moved to [facility] and is clear for psychiatric evaluation After mental health evaluation patient is pending voluntary placement. P.o. Ativan did help with patient's anxiety so will place a as needed order to keep patient calm and reduce anxiety pending admission. 21: 41 patient resting actively no acute distress. Started on home meds. 01/11 5: 13 patient resting comfortably no acute distress no issues overnight or during dayshift. Voluntary awaiting placement 01/12 11: 25 patient wishes to leave, [facility] human services at bedside endorses they have nothing to hold him on for mental health standpoint [facility] <Leobardo Guaman NP - Last Filed: 01/10/24 15:34> All Active Problems (Updated 01/13/24 @ 11:27 by Eugene Handy MD) Problem, psychiatric (Acute) Problem, psychiatric (Acute) Chronic left shoulder pain (Acute) Hypertension (Chronic) Hypogonadism, male (Chronic 03/24/18) Prior appt Dr. Charles at [facility] in [place], lost to FU; testosterone gel not effective, IM injections with improved levels Tobacco abuse (Chronic 11/19/17) 1 ppd Opioid dependence in remission (Chronic) using Suboxone through [facility]. Major depressive disorder, recurrent, severe with psychotic symptoms (Acute) H/o Hospitalization at [facility]; psych meds managed through [facility]. 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 Hx intranasal and oral use of opioids. Meets with therapist twice monthly; has had take-home in the past. ADD (attention deficit disorder) Surgical History S/P ACL reconstruction (2022) S/P hernia repair Family History Mother Diabetes Cancer thyroid cancer Father Diabetes Essential hypertension Paternal Grandfather No problems noted. Maternal Grandfather Stroke Paternal Uncle Cancer stomach cancer Other Family history of diabetes mellitus (DM) Social History Smoking/Tobacco Use Status: Current every day Tobacco Type: cigarettes Quit status: considering quitting Counseling given: provider counseling Smoking risk assessment performed?: Yes Alcohol Intake: former Year quit: 2021 Counseling given: Yes Drug use: Current Sobriety Substance use type: does not use Counseling provided: treatment program Details: Pt. states its been years since use. 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 Current gender identity: male Do you feel safe at home: Yes (Unable to assess privately, dad in room) Do you feel safe in your relationship?: Yes Sign Out <Leobardo Guaman NP - Last Filed: 01/10/24 15:34> Sign Out Data: Sign Out Comment: Patient pending voluntary admission for auditory hallucinations and anxiety Last updated by Leobardo Guaman NP at 01/10/24 15:08 Sign Out Comment: voluntary, auditory hallucinations, started on home meds, awaiting placement Last updated by Eugene Handy MD at 01/10/24 21:42 Sign Out Comment: Voluntary, awaiting placement, needs daily suboxone therapy Last updated by Chay Allen MD at 01/11/24 07:21 Sign Out Comment: Patient is seeking voluntary placement for auditory hallucinations and anxiety, no issues during shift Last updated by Torrey Tse MD at 01/11/24 14:12 Sign Out Comment: Voluntary, AH, medically cleared, home meds in, pending placement. No behavioral issues this shift. Last updated by Cathy Thorpe MD at 01/11/24 21:22 Sign Out Comment: Voluntary, home meds and. Pending placement. Stable throughout the night. No intervention needed. Last updated by Win Gleason DO at 01/12/24 07:14 Sign Out Comment: Voluntary, resting comfortably, no acute distress Last updated by Eugene Handy MD at 01/12/24 17:10 Sign Out Comment: voluntary, pending placement, no issues during shift. Last updated by Isaac Gresham MD at 01/12/24 21:52 Sign Out Comment: Voluntary, pending placement, patient stable throughout shift. No intervention needed. Last updated by Win Gleaosn DO at 01/13/24 07:19
[2024-01-10 10:53] LABS: Abs Immature Grans 0.02 10^3/uL (0.0-0.06); Absolute Basophil Count 0.04 10^3/uL (0.0-0.2); Absolute Eosinophil Count 0.03 10^3/uL (0.0-0.7); Absolute Lymphocyte Count 2.02 10^3/uL (1.2-3.4); Absolute Monocyte Count 0.55 10^3/uL (0.1-0.8); Absolute Neutrophil Count 5.67 10^3/uL (1.2-6.7); Basophils % 0.5; Eosinophils % 0.4; HCT 49.9 % (40.0-50.0); HGB 16.9 g/dL (13.5-17.5); Immature Grans % 0.2; Lymphocytes % 24.2; MCH 29.8 pg (27.0-33.0); MCHC 33.9 % (32.0-36.0); MCV 88 fL (80-95); MPV 9.2 fL (8.0-11.0); Monocytes % 6.6; Neutrophils % 68.1; Platelet Count 239 10^3/uL (130-400); RBC 5.67 10^6/uL (4.36-5.78); RDW 13.7 % (11.8-14.1); RDW-SD 44.1 fL; WBC 8.33 10^3/uL (4.4-10.8)
[2024-01-10] MEDS: LORazepam 1 MG TAB PO ×2 (10:55→17:51)
[2024-01-10 10:59] LABS: Bilirubin Negative (Negative); Blood Negative (Negative); Clarity Clear (Clear); Glucose Negative (Negative); Ketones Negative (Negative); Leukocyte Esterase Negative (Negative); Nitrite Negative (Negative); Urobilinogen 0.2 mg/dL (Up to 0.2)
[2024-01-10 11:13] LABS: *AMPHETAMINES SCREEN URINE Positive (Negative); *BARBITURATES SCREEN URINE Negative (Negative); *BENZODIAZEPINES SCREEN URINE Negative (Negative); Cannabinoids THC Negative (Negative); Cocaine Screen,Urine Negative (Negative); METHADONE URINE SCREEN Negative (Negative); OPIATES URINE SCREEN Negative (Negative)
[2024-01-10 11:14] LABS: Tricyclic Antidepressants Negative (Negative)
[2024-01-10 11:18] LABS: ALT 21 U/L (16-63); AST 14 U/L (15-37); Alkaline Phosphatase 106 U/L (46-116); BUN 14 mg/dL (7-18); Bilirubin, Total 0.4 mg/dL (0.2-1.0); CREATININE 0.8 mg/dL (0.70-1.30); Calcium 9.3 mg/dL (8.5-10.1); Chloride 103 mmol/L (98-107); Estimated GFR 112.61 (mL/min/1.73m2); Glucose 107 mg/dL (74-106); Potassium 4.2 mmol/L (3.5-5.1); Sodium 140 mmol/L (136-145); TSH (W/Ref FT4) 1.36 uIU/mL (0.36-3.74); Total Protein 7.5 g/dL (6.4-8.2)
[2024-01-10 11:19] LABS: ETHANOL BLOOD < 3.0 mg/dL (<10)
[2024-01-10 11:32] LABS: Salicylate 4.6 mg/dL (<2.8)
[2024-01-10 11:35] LABS: Acetaminophen < 2 ug/mL (10-30)
--- NOTE | 2024-01-10 14:15 | PDOC.MHCN_ITS ---
Date of service: 01/10/24 Time of Service: 14:15 PHQ-9 Over the last 2 weeks, how often have you been bothered by any of the following problems? 1. Little interest or pleasure in doing things: nearly every day 2. Feeling down, depressed, or hopeless: more than half the days 3. Trouble falling or staying asleep, or sleeping too much: nearly every day 4. Feeling tired or having little energy: nearly every day 5. Poor appetite or overeating: not at all 6. Feeling bad about yourself - or that you are a failure or have let yourself and your family down: several days 7. Trouble concentrating on things, such as reading the newspaper or watching television: nearly every day 8. Moving or speaking so slowly that other people could have noticed? - Or the opposite - being so fidgety or restless that you have been moving around a lot more than usual: not at all 9. Thoughts that you would be better off or of hurting yourself in some way: not at all Total score: 15 If you checked off any problems, how difficult have these problems made it for you to do your work, take care of things at home, or get along with other people?: extremely difficult Source: Developed by Drs. Jamie Gustafson, Violeta Sorenson, Perry Dwyer and colleagues, with an educational didi from [employer]. Suicide Severity Rate CSSRS Have you wished you were or wished you could go to sleep and not wake up?: No Have you actually had any thoughts of killing yourself?: No CSSRS3 Have you ever done anything, started to do anything or prepared to do anything to end your life?: No Screening Score Total Score: 0 Screening: Negative Mental Health Emergency Note Release [facility] release signed:: Yes Reason for Visit The client presented to the ED this am seeking help with his auditory hallucinations. This is his second visit to the ED this week for these symptoms. 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 He has been hospitalized before and his last per his report was last spring where he went to . The client has not been consistent with his outpatient treatment. He reported that he left the last time because he was anxious. 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 Access to means: No. Risk: Moderate Risk Duty to warn indicated: No Asssessment/Mental Status Appearance: Poor hygiene Attitude: Cooperative and Friendly Behavior: Unremarkable Speech: Normal Affect: Flat and Cogruent with mood Mood: Depressed and Anxious Thought process: Racing and Loose associations Hallucinations: yes, Auditory Delusions: No Attention: Wandering Perception: Not impaired Orientation: Fully orientated Memory: Intact Insight: Fair Judgement: Fair Neurovegetative Symptoms Sleep: Decrease Appetitie: Decrease Interests: Decrease Energy: Decrease Libido: Not applicable Substance Use: Do you use nicotine?: Yes Have you used substances in the last 7 days?: No Additional Issues: Assaultive/Threatening Behavior: No Medical Concerns: No Client engaged in active self harm w/weapon: No Threatening to run away: No Child reported abuse/neglect: No Voluntarily presenting for services: Yes Domestic violence is a concern: No Extreme Psychosis or extreme behavior is present: Yes Impression The client is a 43 year old, single, male who receives services through the 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 He lives with his parents in [facility]. The client denied SI and HI today but by hx has had SI with plan and intent and done self harming things (cutting, jumping into river when he cannot swim). He was last hospitalized per his report last spring at . Per this clinician's observations of significant AH's although not as severe this time as evidenced by ability to converse more without disruptions. Per an ES assessment done by ES clinician Balta on 05.17.22 client reports that he drinks 1/2 gallon of vodka in a 24 hour period. Client has not drank since 05/15/22. He denied substance use even though on 01.07.24 he disclosed to his service providers Denise he was actively using ETOH daily. He did not appear to under the influence when assessed on 01.08.24. The client made better eye contact today, and his body was able to sit more still. He showed good insight sharing the reason he left the other day was because he was anxious. He said he will stay this time. Plan/Disposition Recommended Disposition: Hospitalization facilities contacted. Plan: The client will remain at [facility] pending acceptance. He will be reassessed daily by [facility]. Referrals sent. Person reported agreement to plan: Yes Facilities contacted if Applicable [facility] Not accepted, Other [facility] Not accepted, Other [facility] Not accepted, Other, [facility] [place] 2[place] Not accepted, Other Reports/communication Outcome discussed with: ED/Personnel
--- NOTE | 2024-01-10 15:37 | CMSP_ITS ---
Date of service: 01/10/24 Care Management Safety Plan Status Status: Voluntary Reason for Wait Reason for Wait: Inpatient Admission Safety Plan Safety Plan: VOLUNTARY FOR INPATIENT PSYCHIATRIC STABILIZATION.? Patient is appropriate in all interactions since arriving at [facility]; Pt has demonstrated appropriate coping and communication skills, has articulated his or her needs and concerns and is fully engaged during staff interactions. CM huddled with provider, RN CPSO, nursing supervisor general, and Barbara from [facility]. Per report Dangelo left A recently due to increased anxiety while in zone B waiting for placement. RN to be attentive of increased anxiety. Provider has offered anxiety medication PRN. Barbara [facility] states that if Dangelo wishes to leave he will not be held involuntarily. Safety plan has been established with patient, and care team, to adhere to patient goals, identify restrictions based on behavioral status, address nutrition, and determine allowed personal belongings, tools for hygiene and personal care. Determine level of activity including ambulation, level of supervision, visitors, and determine privileges based on behaviors and level of engagement by pt. SAFETY PLAN: 1. Will remain on suicide precautions, in paper clothes 2. Will remain in Zone B under direct supervision of one-on-one staff at all times provided by CPSO; JAYDEN, AGRICULTURAL LOAN OFFICER webbing supervisor. 3. May have paper cups, plates, finger foods as well as a cardboard spoon with which to eat meals. 4. Follow [facility] Management of the Admitted Behavioral Health Patient policy. 5. Shower available in Zone B without restriction. 6. Personal belongings-soft items permitted at RN discretion. 7. Visitors-none at this time. 8. Activities: soft cart items approved per RN discretion. 9.? Bathroom available in Zone B without restriction. 10. Phone: limited to [facility] cordless phone at RN discretion. Due to VOLUNTARY status, if patient wishes to leave [facility], staff will contact [facility] Crisis Screener ([phone]) and Refrigeration Operator ([phone]) as soon as possible. In the event of elopement, notify [facility] Police ([phone]). Patient is currently voluntarily at [facility] and seeking inpatient admission when a bed becomes available. [facility] Frontline Duplicating Machine Servicer will continue seeking placement. Please contact the Refrigeration Operator ([phone]) and [facility] Duplicating Machine Servicer ([phone]) for any needed changes in the Safety Plan. Safety plan has been provided to interdepartmental care team.
--- NOTE | 2024-01-10 15:37 | PDOC.CMSAFE ---
Date of service: 01/10/24 Care Management Safety Plan Status Status: Voluntary Reason for Wait Reason for Wait: Inpatient Admission Safety Plan Safety Plan: VOLUNTARY FOR INPATIENT PSYCHIATRIC STABILIZATION.? Patient is appropriate in all interactions since arriving at [facility]; Pt has demonstrated appropriate coping and communication skills, has articulated his or her needs and concerns and is fully engaged during staff interactions. CM huddled with provider, RN CPSO, nursing tray line supervisor, and Barbara from [facility]. Per report Dangelo left A recently due to increased anxiety while in zone B waiting for placement. RN to be attentive of increased anxiety. Provider has offered anxiety medication PRN. Barbara [facility] states that if Dangelo wishes to leave he will not be held involuntarily. Safety plan has been established with patient, and care team, to adhere to patient goals, identify restrictions based on behavioral status, address nutrition, and determine allowed personal belongings, tools for hygiene and personal care. Determine level of activity including ambulation, level of supervision, visitors, and determine privileges based on behaviors and level of engagement by pt. SAFETY PLAN: 1. Will remain on suicide precautions, in paper clothes 2. Will remain in Zone B under direct supervision of one-on-one staff at all times provided by CPSO; JAYDEN, MEASUREMENT AND VERIFICATION ENGINEER tobacco primer machine operator. 3. May have paper cups, plates, finger foods as well as a cardboard spoon with which to eat meals. 4. Follow [facility] Management of the Admitted Behavioral Health Patient policy. 5. Shower available in Zone B without restriction. 6. Personal belongings-soft items permitted at RN discretion. 7. Visitors-none at this time. 8. Activities: soft cart items approved per RN discretion. 9.? Bathroom available in Zone B without restriction. 10. Phone: limited to [facility] cordless phone at RN discretion. Due to VOLUNTARY status, if patient wishes to leave [facility], staff will contact [facility] Crisis Screener ([phone]) and Software Sales Executive ([phone]) as soon as possible. In the event of elopement, notify [facility] Police ([phone]). Patient is currently voluntarily at [facility] and seeking inpatient admission when a bed becomes available. [facility] Frontline Correspondence Renew Clerk will continue seeking placement. Please contact the Software Sales Executive ([phone]) and [facility] Correspondence Renew Clerk ([phone]) for any needed changes in the Safety Plan. Safety plan has been provided to interdepartmental care team.
[2024-01-10] MEDS: Melatonin 3 MG TAB 6 MG PO (22:32)
[2024-01-10] MEDS: QUEtiapine 300 MG, QUEtiapine 100 MG 400 MG PO (22:33)
[2024-01-10] MEDS: Gabapentin 300 MG CAP PO (22:33)
[2024-01-10] MEDS: cloNIDine 0.1 MG TAB 0.2 MG PO (22:34)
[2024-01-10 22:35] VITALS: BP 122/73; PULSE 108; RESP 20; TEMP 37; O2SAT 96
[2024-01-11] MEDS: LORazepam 1 MG TAB PO ×3 (05:20→22:48)
[2024-01-11] MEDS: Buprenorphine/Naloxone 12 mg/3 mg FILM 1 EACH SL (05:26)
--- NOTE | 2024-01-11 07:30 | ED.PROG_ITS ---
Date of service: 01/11/24 Time of Service: 07:31 Medical Decision Making Patient seeking voluntary placement for auditory hallucinations, no issues reported overnight and currently calm and cooperative without acute complaints. Will continue to monitor until safe disposition found Quality:SDOH Health Related Social Needs: No Data to Display Sign Out Sign Out Data: Sign Out Comment: Patient pending voluntary admission for auditory hallucinations and anxiety Last updated by Leobardo Guaman NP at 01/10/24 15:08 Sign Out Comment: voluntary, auditory hallucinations, started on home meds, awaiting placement Last updated by Eugene Handy MD at 01/10/24 21:42 Sign Out Comment: Voluntary, awaiting placement, needs daily suboxone therapy Last updated by Chay Allen MD at 01/11/24 07:21 Discharge Plan Discharge Details Chief Complaint: PsychEval Primary Care Provider: Sophia Kelsey ED Provider: Torrey Tse Home Meds and New Rx's Prescriptions: No Action lisdexamfetamine [Vyvanse] 40 mg capsule 40 mg PO DAILY buprenorphine-naloxone [Suboxone] 8-2 mg film 1 film buccal Q24H buprenorphine-naloxone [Suboxone] 12-3 mg film 1 film buccal Q24H lisinopril 10 mg tablet 10 mg PO DAILY Qty: 90 3RF triamcinolone acetonide 0.025 % cream 1 applic topical DAILY PRN (Reason: rash) Qty: 15 0RF Rx Instructions: apply 0.25gm to face daily prn seborrhea quetiapine [Seroquel] 400 mg tablet 450 mg PO BID clonidine HCl 0.2 mg tablet 0.2 mg PO Q12H PRN Rx Instructions: Last RX'd by Patricia [employer] October 2022 melatonin 3 mg capsule 6 mg PO HS PRN Rx Instructions: [facility] [employer]. gabapentin 300 mg capsule 300 mg PO TID Rx Instructions: Last RX'd by Marion [employer] on 11/19/2022. -hb testosterone cypionate 200 mg/mL oil 200 mg IM Q2W Qty: 1 5RF naproxen 250 mg tablet 250 - 500 mg PO BID PRNQty: 40 0RF Rx Instructions: take with a meal
[2024-01-11] MEDS: cloNIDine 0.1 MG TAB 0.2 MG PO ×2 (08:45→20:00)
[2024-01-11] MEDS: Gabapentin 300 MG CAP PO ×3 (08:45→20:00)
[2024-01-11] MEDS: QUEtiapine 300 MG, QUEtiapine 100 MG 400 MG PO ×2 (08:46→20:00)
[2024-01-11] MEDS: Lisdexamphetamine 60 MG CAP PO (09:10)
[2024-01-11 09:13] VITALS: BP 121/78; PULSE 123; RESP 16; TEMP 36.9; O2SAT 96
--- NOTE | 2024-01-11 11:22 | CMSP_ITS ---
Date of service: 01/11/24 Care Management Safety Plan Status Status: Voluntary Reason for Wait Reason for Wait: Inpatient Admission Safety Plan Safety Plan: VOLUNTARY FOR INPATIENT PSYCHIATRIC STABILIZATION.? Patient is appropriate in all interactions since arriving at [facility]; Pt has demonstrated appropriate coping and communication skills, has articulated his or her needs and concerns and is fully engaged during staff interactions. Safety plan has been established with patient, and care team, to adhere to patient goals, identify restrictions based on behavioral status, address nutrit ion, and determine allowed personal belongings, tools for hygiene and personal care. Determine level of activity including ambulation, level of supervision, visitors, and determine privileges based on behaviors and level of engagement by pt. SAFETY PLAN: 1. Will remain on suicide precautions, in paper clothes 2. Will remain in Zone B under direct supervision of one-on-one staff at all times provided by CPSO; JAYDEN, FURNACE MECHANIC HELPER director industrial nursing. 3. May have paper cups, plates, finger foods as well as a cardboard spoon with which to eat meals. 4. Follow [facility] Management of the Admitted Behavioral Health Patient policy. 5. Shower available in Zone B without restriction. 6. Personal belongings-soft items permitted at RN discretion. 7. Visitors-none at this time. 8. Activities: soft cart items approved per RN discretion. 9.? Bathroom available in Zone B without restriction. 10. Phone: limited to [facility] cordless phone at RN discretion. Due to VOLUNTARY status, if patient wishes to leave [facility], staff will contact [facility] Crisis Screener ([phone]) and Front Office Coordinator ([phone]) as soon as possible. In the event of elopement, notify [facility] Police ([phone]). Patient is currently voluntarily at [facility] and seeking inpatient admission when a bed becomes available. [facility] Frontline Live Ammunition Inspector will continue seeking placement. Please contact the Front Office Coordinator ([phone]) and [facility] Live Ammunition Inspector ([phone]) for any needed changes in the Safety Plan. Safety plan has been provided to interdepartmental care team.
--- NOTE | 2024-01-11 11:22 | PDOC.CMPRO ---
Date of service: 01/11/24 Care Management Progress Note Progress Note Text Progress Note Text: CM huddled with provider, RN CPSO, nursing aircraft maintenance supervisor, and Barbara from [facility]. Per report Dangelo left AMA recently due to increased anxiety while in zone B waiting for placement. RN to be attentive of increased anxiety. Provider has offered anxiety medication PRN. Barbara [facility] states that if Dangelo wishes to leave he will not be held involuntarily. [facility] medications which may be a barrier to his admission. Barbara will discuss this with Dangelo to determine if he is willing to have medication changed while at [facility]. Per staff Dangelo has been appropriate and remains voluntary for inpatient psychiatric treatment. No changes to safety plan today. CM will continue to follow.
--- NOTE | 2024-01-11 11:22 | PDOC.CMSAFE ---
Date of service: 01/11/24 Care Management Safety Plan Status Status: Voluntary Reason for Wait Reason for Wait: Inpatient Admission Safety Plan Safety Plan: VOLUNTARY FOR INPATIENT PSYCHIATRIC STABILIZATION.? Patient is appropriate in all interactions since arriving at [facility]; Pt has demonstrated appropriate coping and communication skills, has articulated his or her needs and concerns and is fully engaged during staff interactions. Safety plan has been established with patient, and care team, to adhere to patient goals, identify restrictions based on behavioral status, address nutrition, and determine allowed personal belongings, tools for hygiene and personal care. Determine level of activity including ambulation, level of supervision, visitors, and determine privileges based on behaviors and level of engagement by pt. SAFETY PLAN: 1. Will remain on suicide precautions, in paper clothes 2. Will remain in Zone B under direct supervision of one-on-one staff at all times provided by CPSO; JAYDEN, HEAVY FORGER HELPER ambulatory nurse. 3. May have paper cups, plates, finger foods as well as a cardboard spoon with which to eat meals. 4. Follow [facility] Management of the Admitted Behavioral Health Patient policy. 5. Shower available in Zone B without restriction. 6. Personal belongings-soft items permitted at RN discretion. 7. Visitors-none at this time. 8. Activities: soft cart items approved per RN discretion. 9.? Bathroom available in Zone B without restriction. 10. Phone: limited to [facility] cordless phone at RN discretion. Due to VOLUNTARY status, if patient wishes to leave [facility], staff will contact [facility] Crisis Screener ([phone]) and Gamemaster ([phone]) as soon as possible. In the event of elopement, notify [facility] Police ([phone]). Patient is currently voluntarily at [facility] and seeking inpatient admission when a bed becomes available. [facility] Frontline Loss Prevention Detective will continue seeking placement. Please contact the Gamemaster ([phone]) and [facility] Loss Prevention Detective ([phone]) for any needed changes in the Safety Plan. Safety plan has been provided to interdepartmental care team.
--- NOTE | 2024-01-11 11:30 | MHPN_ITS ---
Date of service: 01/11/24 Time of Service: 11:30 Mental Health Emergency Note Release [facility] release signed:: Yes Reason for Visit The client presented to the ED seeking help with his auditory hallucinations on 01.10.24. This is his second visit to the ED this week for these symptoms. He is a client of the NEEDLEWORKER program for [facility] and has been living with his parents in [facility]. He has been hospitalized before and his last per his report was last spring where he went to . The client has not been consistent with his outpatient treatment. He reported that he left the last time because he was anxious. This assessment was completed via zoom so that international coordinator Lakeshia could observe. In the last 2 weeks has the pt presented for ES prior to today?: Yes, presented at [facility] ED Impression The client is a 43 year old, single, male who receives services through the NEEDLEWORKER program with [facility]. He lives with his parents in [facility]. The client denied SI and HI today but by hx has had SI with plan and intent and done self harming things (cutting, jumping into river when he cannot swim). He was last hospitalized per his report last spring at . Per this clinician's observations of significant AH's although not as severe this time as evidenced by ability to converse more without disruptions. Per an ES assessment done by ES clinician Balta on 05.17.22 client reports that he drinks 1/2 gallon of vodka in a 24 hour period. Client has not drank since 05/15/22. He denied substance use even though on 01.07.24 he disclosed to his service providers Denise he was actively using ETOH daily. He did not appear to under the influence when assessed on 01.08.24 or 01.10.24. The client presented via zoom lying on his bed and sat up so that his face was visible in the screen. He presents still as unshowered and hair is oily. He is engaged and polite. The client reported he feels tired today and notes that he sleeps a lot. He reported eating well. Nursing confirmed all of this as well and noted he has had no behaviors. The client denied Si and HI. He reported he has the AH's everyday however, they are quieter today. This clinician asked the client about being willing to look at changing his Vyvanse as the provider at noted that sometimes this medication combined with Suboxone can increase AH. The client respectfully declined. In addition, the clinician shared his Suboxone dosages passed on only what is in our EMR and is not prescribed by [facility]. Plan/Disposition Recommended Disposition: Hospitalization facilities contacted. Plan: No beds available today. The client has been declined by [facility] and [facility]. The client will remain at [facility] pending acceptance. Person reported agreement to plan: Yes Facilities contacted if Applicable [facility] Not accepted, [facility] Not accepted, No bed available [facility] Not accepted, No bed available, [facility] Not accepted, [facility] Reports/communication Outcome discussed with: ED/Personnel
[2024-01-11] MEDS: Lisinopril 10 MG TAB PO (12:55)
[2024-01-11] MEDS: Buprenorphine/Naloxone 8 mg/2 mg FILM 1 EACH SL (13:00)
--- NOTE | 2024-01-11 15:22 | ED.PROG_ITS ---
Date of service: 01/11/24 Time of Service: 15:25 Medical Decision Making This patient was signed out to me. Please see previous notes for H&P and initial eval. In brief, 43yo M presenting with hallucinations and anxiety, medically cleared. Pending voluntary inpatient placement. No behavioral issues on the evening shift. Remains amenable to voluntary treatment. Signed out to overnight physican, plan remains as above. Quality:[facility] Health Related Social Needs: No Data to Display Sign Out Sign Out Data: Sign Out Comment: Patient pending voluntary admission for auditory hallucinations and anxiety Last updated by Leobardo Guaman, IVAN at 01/10/24 15:08 Sign Out Comment: voluntary, auditory hallucinations, started on home meds, awaiting placement Last updated by Eugene Handy MD at 01/10/24 21:42 Sign Out Comment: Voluntary, awaiting placement, needs daily suboxone therapy Last updated by Chay Allen MD at 01/11/24 07:21 Sign Out Comment: Patient is seeking voluntary placement for auditory halluci nations and anxiety, no issues during shift Last updated by Torrey Tse MD at 01/11/24 14:12 Sign Out Comment: Voluntary, AH, medically cleared, home meds in, pending placement. No behavioral issues this shift. Last updated by Cathy Thorpe MD at 01/11/24 21:22 Discharge Plan Discharge Details Chief Complaint: PsychEval Primary Care Provider: Sophia Kelsey ED Provider: Cathy Thorpe Home Meds and New Rx's Prescriptions: No Action lisdexamfetamine [Vyvanse] 40 mg capsule 60 mg PO DAILY buprenorphine-naloxone [Suboxone] 8-2 mg film 1 film buccal Q24H Patient Comments: confirmed with [facility] 01/11/24 buprenorphine-naloxone [Suboxone] 12-3 mg film 1 film buccal Q24H Patient Comments: confirmed with [facility] 01/11/24 lisinopril 10 mg tablet 10 mg PO DAILY Qty: 90 3RF triamcinolone acetonide 0.025 % cream 1 applic topical DAILY PRN (Reason: rash) Qty: 15 0RF Rx Instructions: apply 0.25gm to face daily prn seborrhea quetiapine [Seroquel] 400 mg tablet 450 mg PO BID clonidine HCl 0.2 mg tablet 0.2 mg PO Q12H PRN Rx Instructions: Last RX'd by [facility] [place] October 2022 melatonin 3 mg capsule 6 mg PO HS PRN Rx Instructions: Last RX'd by [facility] [place]. gabapentin 300 mg capsule 300 mg PO TID Rx Instructions: Last RX'd by [facility] [place] on 11/19/2022. -hb testosterone cypionate 200 mg/mL oil 200 mg IM Q2W Qty: 1 5RF naproxen 250 mg tablet 250 - 500 mg PO BID PRNQty: 40 0RF Rx Instructions: take with a meal
[2024-01-12] MEDS: LORazepam 1 MG TAB PO ×5 (02:17→21:34)
[2024-01-12 07:38] VITALS: BP 148/82; PULSE 103; TEMP 36.6; O2SAT 99
[2024-01-12] MEDS: Lisdexamphetamine 60 MG CAP PO (07:42)
[2024-01-12] MEDS: Gabapentin 300 MG CAP PO ×3 (07:42→19:33)
[2024-01-12] MEDS: Buprenorphine/Naloxone 8 mg/2 mg FILM 1 EACH SL (07:42)
[2024-01-12] MEDS: Buprenorphine/Naloxone 12 mg/3 mg FILM 1 EACH SL (07:42)
[2024-01-12] MEDS: cloNIDine 0.1 MG TAB 0.2 MG PO ×2 (07:42→19:33)
[2024-01-12] MEDS: Lisinopril 10 MG TAB PO (07:43)
[2024-01-12] MEDS: QUEtiapine 300 MG, QUEtiapine 100 MG 400 MG PO ×2 (07:44→19:32)
--- NOTE | 2024-01-12 10:48 | MHPN_ITS ---
Date of service: 01/12/24 Time of Service: 10:20 Mental Health Emergency Note Release [facility] release signed:: Yes Reason for Visit Dangelo is currently at [facility] seeking voluntary inpatient treatment. 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: Yes Non Suicidal Self Injury Current: No History: No Safety Risk/Harm to Self or Others Current Ideation to Harm Self or Others: No Risk: Does risk to harm exist?: No Duty to warn indicated: No Asssessment/Mental Status Appearance: Disheveled Attitude: Cooperative and Passive Behavior: Unremarkable Speech: Normal Affect: Flat Mood: Anxious and Irritable Thought process: Unremarkable Hallucinations: No evidence Delusions: No evidence Attention: Unremarkable Perception: Not impaired Orientation: Fully orientated Memory: Intact Insight: Poor Judgement: Poor Neurovegetative Symptoms Sleep: No change Appetitie: No change Interests: No change Energy: No change Libido: Not applicable Substance Use: Do you use nicotine?: No Have you used substances in the last 7 days?: No Additional Issues: Assaultive/Threatening Behavior: No Medical Concerns: No Client engaged in active self harm w/weapon: No Threatening to run away: No Child reported abuse/neglect: No Voluntarily presenting for services: Yes Domestic violence is a concern: No Extreme Psychosis or extreme behavior is present: No Impression Dangelo presents to this video game script writer sitting on his bed, Dangelo presents guarded and with a passive attitude of why he is at the hospital. Dangelo reports no current thoughts of harming himself or others and reports the voices have been minimal today. Dangelo reports it has been a morning so far when asked how he was and would not disclose further details of what this meant. Dangelo reports he slept alright and has not yet eaten breakfast but while this video game script writer was talking to him, he was eating what looked like toast or an indonesian muffin. Dangelo reports he wished he could use his Iphone, this video game script writer explained it is hospital policy he cannot. dangelo reports wanting to know about his RESEARCH DEVELOPMENT MANAGER team but it is not important and then he dismissed it. Dangelo reports having nothing to talk about and not having any questions at this time. This video game script writer discussed with Dangelo he was denied from [facility] due to his Vivance; Dangelo reports he does not want to discontinue this prescription and he will wait for another hopsitla acceptance. Plan/Disposition Recommended Disposition: Hospitalization facilities contacted. Plan: Dangelo will remain at [facility] until an inpatient treatment facility has a bed open and can accept him. Person reported agreement to plan: Yes Facilities contacted if Applicable [facility] Not accepted, Other (Due to vivance prescription; client does not want to stop taking it. ) [facility] Not accepted, No bed available [facility] Not accepted, No bed available, [facility] Not accepted, [facility] Reports/communication Outcome discussed with: ED/Personnel
--- NOTE | 2024-01-12 13:21 | CMSP_ITS ---
Date of service: 01/12/24 Time of Service: 13:21 Care Management Safety Plan Status Status: Voluntary Reason for Wait Reason for Wait: Inpatient Admission Safety Plan Safety Plan: VOLUNTARY FOR INPATIENT PSYCHIATRIC STABILIZATION.? Patient is appropriate in all interactions since arriving at [facility]; Pt has demonstrated appropriate coping and communication skills, has articulated his or her needs and concerns and is fully engaged during staff interactions. Safety plan has been established with patient, and care team, to adhere to patient goals, identify restrictions based on behavioral status, address nutrition, and determine allowed personal belongings, tools for hygiene and personal care. Determine level of activity including ambulation, level of supervision, visitors, and determine privileges based on behaviors and level of engagement by pt. SAFETY PLAN: 1. Will remain on suicide precautions, in paper clothes 2. Will remain in Zone B under direct supervision of one-on-one staff at all times provided by [employer]; JAYDEN, COTTON FARMER sheet pile driver operator. 3. May have paper cups, plates, finger foods as well as a cardboard spoon with which to eat meals. 4. Follow [facility] Management of the Admitted Behavioral Health Patient policy. 5. Shower available in Zone B without restriction. 6. Personal belongings-soft items permitted at RN discretion. 7. Visitors-none at this time. 8. Activities: soft cart items approved per RN discretion. 9.? Bathroom available in Zone B without restriction. 10. Phone: limited to [facility] cordless phone at RN discretion. Due to VOLUNTARY status, if patient wishes to leave [facility], staff will contact [facility] Crisis Screener ([phone]) and Shearing Machine Operator ([phone]) as soon as possible. In the event of elopement, notify [facility] Police ([phone]). Patient is currently voluntarily at [facility] and seeking inpatient admission when a bed becomes available. [facility] Frontline Director Of Manufacturing Operations will continue seeking placement. Please contact the Shearing Machine Operator ([phone]) and [facility] Director Of Manufacturing Operations ([phone]) for any needed changes in the Safety Plan. Safety plan has been provided to interdepartmental care team.
--- NOTE | 2024-01-12 13:21 | PDOC.CMSAFE ---
Date of service: 01/12/24 Time of Service: 13:21 Care Management Safety Plan Status Status: Voluntary Reason for Wait Reason for Wait: Inpatient Admission Safety Plan Safety Plan: VOLUNTARY FOR INPATIENT PSYCHIATRIC STABILIZATION.? Patient is appropriate in all interactions since arriving at [facility]; Pt has demonstrated appropriate coping and communication skills, has articulated his or her needs and concerns and is fully engaged during staff interactions. Safety plan has been established with patient, and care team, to adhere to patient goals, identify restrictions based on behavioral status, address nutrition, and determine allowed personal belongings, tools for hygiene and personal care. Determine level of activity including ambulation, level of supervision, visitors, and determine privileges based on behaviors and level of engagement by pt. SAFETY PLAN: 1. Will remain on suicide precautions, in paper clothes 2. Will remain in Zone B under direct supervision of one-on-one staff at all times provided by [employer]; JAYDEN, GRANITE SETTER performance test engineer. 3. May have paper cups, plates, finger foods as well as a cardboard spoon with which to eat meals. 4. Follow [facility] Management of the Admitted Behavioral Health Patient policy. 5. Shower available in Zone B without restriction. 6. Personal belongings-soft items permitted at RN discretion. 7. Visitors-none at this time. 8. Activities: soft cart items approved per RN discretion. 9.? Bathroom available in Zone B without restriction. 10. Phone: limited to [facility] cordless phone at RN discretion. Due to VOLUNTARY status, if patient wishes to leave [facility], staff will contact [facility] Crisis Screener ([phone]) and Implementation Technician ([phone]) as soon as possible. In the event of elopement, notify [facility] Police ([phone]). Patient is currently voluntarily at [facility] and seeking inpatient admission when a bed becomes available. [facility] Frontline Home Staging Specialist will continue seeking placement. Please contact the Implementation Technician ([phone]) and [facility] Home Staging Specialist ([phone]) for any needed changes in the Safety Plan. Safety plan has been provided to interdepartmental care team.
--- NOTE | 2024-01-12 13:22 | CMPROGNOTE_ITS ---
Date of service: 01/12/24 Time of Service: 13:22 Care Management Progress Note Progress Note Text Progress Note Text: CM met with ED and Zone B staff to discuss Dangelo's plan of care. Per report, Dangelo has been declined by [facility] and [facility] [place]. He was declined by [facility] because he is not agreeable to make changes to his medications. Per [facility], still waiting on a response from [facility] and [place]. CM discussed safety planning home with MAULIK Booker, as an alternative to inpatient treatment if no bed offers are made. Per staff, Dangelo has been appropriate in all interactions. He does appear fixated on receiving his medications, and does not want to make changes to his medication regiment at this time. He is reporting less auditory hallucinations, although he does consistently have AH at baseline. CM will continue to follow.
--- NOTE | 2024-01-12 18:15 | NUR.NOTE ---
accidently deleted most of the days notes on pt. he has been in his room, lying on his bed, watching tv for my shift. later in the afternoon got up to tell me he was depressed and anxious. wanted to know what he could have for medication-gave him ativan and he went back to bed. has eaten lunch and supper. has been polite -thanked us. has not been talking to voices. Nursing Note:
[2024-01-12] MEDS: Melatonin 3 MG TAB 6 MG PO (19:40)
[2024-01-13] MEDS: LORazepam 1 MG TAB PO ×3 (02:40→11:04)
--- NOTE | 2024-01-13 02:49 | NUTRITION ---
Patient keeps periodically asking for remote and isn't being cooperative in returning it. Patient is aware that it is our only remote and per our policy he is supposed to return the remote. RN is aware.
[2024-01-13] MEDS: Buprenorphine/Naloxone 8 mg/2 mg FILM 1 EACH SL (07:37)
[2024-01-13] MEDS: QUEtiapine 300 MG, QUEtiapine 100 MG 400 MG PO (07:38)
[2024-01-13] MEDS: Lisinopril 10 MG TAB PO (07:38)
[2024-01-13] MEDS: Buprenorphine/Naloxone 12 mg/3 mg FILM 1 EACH SL (07:38)
[2024-01-13] MEDS: Naproxen 250 MG TAB PO ×2 (07:38→09:28)
[2024-01-13] MEDS: Lisdexamphetamine 60 MG CAP PO (07:38)
[2024-01-13] MEDS: Gabapentin 300 MG CAP PO (07:38)
[2024-01-13] MEDS: cloNIDine 0.1 MG TAB 0.2 MG PO (09:28)
[2024-01-13] MEDS: Nicotine 14 MG/24 HR PATCH TD (09:31)
[2024-01-13] MEDS: Nicotine 4 MG LOZG (09:33)
--- NOTE | 2024-01-13 11:26 | NUR.NOTE ---
Nursing Note: pt requesting to leave AMA. MH and MD aware, there is no indication to EE the patient at this time per MH. Pt signed AMA form, all belongings returned, and patient used phone to call for a ride. Pt exited facility @ [id number]
--- NOTE | 2024-01-13 15:44 | MHPN_ITS ---
Date of service: 01/13/24 Time of Service: 10:30 PHQ-9 Over the last 2 weeks, how often have you been bothered by any of the following problems? 1. Little interest or pleasure in doing things: not at all 2. Feeling down, depressed, or hopeless: several days 3. Trouble falling or staying asleep, or sleeping too much: not at all 4. Feeling tired or having little energy: not at all 5. Poor appetite or overeating: not at all 6. Feeling bad about yourself - or that you are a failure or have let yourself and your family down: not at all 7. Trouble concentrating on things, such as reading the newspaper or watching television: not at all 8. Moving or speaking so slowly that other people could have noticed? - Or the opposite - being so fidgety or restless that you have been moving around a lot more than usual: not at all 9. Thoughts that you would be better off or of hurting yourself in some way: not at all Total score: 1 Source: Developed by Drs. Jamie Gustafson, Violeta Sorenson, Perry Dwyer and colleagues, with an educational didi from [employer]. Suicide Severity Rate CSSRS Have you wished you were or wished you could go to sleep and not wake up?: No Have you actually had any thoughts of killing yourself?: No CSSRS2 Have you been thinking about how you might do this?: No Have you had these thoughts and had some intention of acting on them?: No CSSRS3 Have you ever done anything, started to do anything or prepared to do anything to end your life?: No Screening Score Total Score: 0 Screening: Negative Mental Health Emergency Note Release [facility] release signed:: Yes Reason for Visit Reassessed for inpatient care In the last 2 weeks has the pt presented for ES prior to today?: Yes, presented at Client Information 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 Non Suicidal Self Injury Current: No History: No Safety Risk/Harm to Self or Others Current Ideation to Harm Self or Others: No Risk: Does risk to harm exist?: No Risk: Moderate Risk Duty to warn indicated: No Asssessment/Mental Status Appearance: Unremarkable and Other Attitude: Cooperative and Guarded Behavior: Poor impulse control Speech: Normal Affect: Cogruent with mood Mood: Stressed and Anxious Thought process: Loose associations and Circumstational Hallucinations: yes, Auditory Delusions: yes, Other Attention: Unremarkable Perception: Other Orientation: Fully orientated Memory: Intact Insight: Fair Judgement: Fair and Poor Neurovegetative Symptoms Sleep: No change Appetitie: Increase Energy: No change Libido: Not applicable Substance Use: ETOH dependence Drug Issues: Dependence and Other Do you use nicotine?: No Have you used substances in the last 7 days?: yes, several times per day Additional Issues: Assaultive/Threatening Behavior: No Medical Concerns: No Client engaged in active self harm w/weapon: No Threatening to run away: No Child reported abuse/neglect: No Voluntarily presenting for services: Yes Domestic violence is a concern: No Extreme Psychosis or extreme behavior is present: Yes Impression This client presented as friendly, alert, and cooperative. He does hear voices that demand he does certain things like leave the hospital which he has done after I finished my assessment but against medical advice. He spent 2 nights in the hospital. Resources [facility] reviewed and given:: [phone] Plan/Disposition Recommended Disposition: Hospitalization No. Plan: Client should wait in Zone B until an inpatient bed is a vailble Reports/communication Outcome discussed with: ED/Personnel
== END 2024-01-13 11:29 | disposition home or self-care (01) ==
PROVIDERS: Nurse Practitioner Family; Emergency Provider Emergency Medicine; PCP Family Medicine
DX: R44.0 Auditory hallucinations (principal); F41.9 Anxiety disorder, unspecified; F32.A Depression, unspecified; F17.210 Nicotine dependence, cigarettes, uncomplicated
CPT/HCPCS: 00123; 36415; 80053; 80307; 96127; 99284; 80320; 80329; 81003; 84443; 85025

== ENCOUNTER 2024-01-14 07:41 | Emergency (ER) | payer MEDICAID, SELFPAY ==
[2024-01-14 07:45] VITALS: BP 136/87; PULSE 120; RESP 18; TEMP 37.2; O2SAT 93
--- NOTE | 2024-01-14 08:06 | ED.GENADUL_ITS ---
Discharge Plan Disposition Patient Disposition: Home Discharge Details Clinical Impression: Non-compliance, Manipulative behavior, Active substance abuse, Malingering Primary Care Provider: Sophia Kelsey ED Provider: Isaac Gresham Home Meds and New Rx's Prescriptions: No Action lisdexamfetamine [Vyvanse] 40 mg capsule 60 mg PO DAILY buprenorphine-naloxone [Suboxone] 8-2 mg film 1 film buccal Q24H Patient Comments: confirmed with [facility] 01/11/24 buprenorphine-naloxone [Suboxone] 12-3 mg film 1 film buccal Q24H Patient Comments: confirmed with [facility] 01/11/24 lisinopril 10 mg tablet 10 mg PO DAILY Qty: 90 3RF triamcinolone acetonide 0.025 % cream 1 applic topical DAILY PRN (Reason: rash) Qty: 15 0RF Rx Instructions: apply 0.25gm to face daily prn seborrhea quetiapine [Seroquel] 400 mg tablet 450 mg PO BID clonidine HCl 0.2 mg tablet 0.2 mg PO Q12H PRN Rx Instructions: Last RX'd by [facility] [place] October 2022 melatonin 3 mg capsule 6 mg PO HS PRN Rx Instructions: Last RX'd by [place]. gabapentin 300 mg capsule 300 mg PO TID Rx Instructions: Last RX'd by [place] on 11/19/2022. -hb testosterone cypionate 200 mg/mL oil 200 mg IM Q2W Qty: 1 5RF naproxen 250 mg tablet 250 - 500 mg PO BID PRNQty: 40 0RF Rx Instructions: take with a meal HPI General Date/Time Provider Initiated Documentation: 01/14/24 07:44 . Limitations to Documentation: no limitations . Information obtained by: patient and old records reviewed . HPI Narrative: 43-year-old gentleman with past medical history of substance abuse, depression, anxiety, presents requesting psych evaluation and inpatient placement. Patient was in the emergency department yesterday and decided to leave. He returns today stating that he now wants to stay. He reports that he did get his Suboxone this morning. He states that he takes medications, but he does not know which ones. He states that he took his medications today, but that he does not think that they are helping with his anxiety. Related Data Home Medications Medication Instructions Recorded Confirmed clonidine HCl 0.2 mg tablet 0.2 mg PO Q12H PRN 12/04/22 01/14/24 gabapentin 300 mg capsule 300 mg PO TID 12/04/22 01/14/24 melatonin 3 mg capsule 6 mg PO HS PRN 12/04/22 01/14/24 buprenorphine 12 mg-naloxone 3 mg 1 film buccal Q24H 01/03/23 01/14/24 sublingual film (Suboxone) buprenorphine 8 mg-naloxone 2 mg 1 film buccal Q24H 01/03/23 01/14/24 sublingual film (Suboxone) lisdexamfetamine 40 mg capsule 60 mg PO DAILY 01/03/23 01/14/24 (Vyvanse) naproxen 250 mg tablet 250 - 500 mg (1 - 2 x 250 mg) PO 03/28/23 01/14/24 BID PRN #40 tabs triamcinolone acetonide 0.025 % 1 applic topical DAILY PRN rash 08/06/23 01/14/24 topical cream #15 grams quetiapine 400 mg tablet (Seroquel) 450 mg PO BID 09/24/23 01/14/24 lisinopril 10 mg tablet 10 mg PO DAILY #90 tabs 11/14/23 01/14/24 testosterone cypionate 200 mg/mL 200 mg IM Q2W #1 mL 11/19/23 01/14/24 intramuscular oil Previous Rx's Medication Instructions Recorded naproxen 250 mg tablet 250 - 500 mg (1 - 2 x 250 mg) PO 03/28/23 BID PRN #40 tabs triamcinolone acetonide 0.025 % 1 applic topical DAILY PRN rash 08/06/23 topical cream #15 grams lisinopril 10 mg tablet 10 mg PO DAILY #90 tabs 11/14/23 testosterone cypionate 200 mg/mL 200 mg IM Q2W #1 mL 11/19/23 intramuscular oil Allergies Allergy/AdvReac Type Severity Reaction Status Date / Time No Known Allergies Allergy Verified 01/14/24 07:45 General Stated Complaint: PsychEval PACO: 2 Exam Narrative Exam Narrative: Review of Systems: All systems reviewed & are unremarkable except as noted in HPI and below Well-developed, no acute distress NCAT PERRL, normal conjunctiva RRR Unlabored respiratory effort Nondistended abdomen Extremities w/o deformity, no cyanosis, no edema No rashes or lesions. no focal neurologic deficits Bouncing a rubber ball, rolling his eyes, agitated with answering questions Course Vital Signs Vital signs: Vital Signs Temperature 37.2 C 01/14/24 07:45 Pulse 120 H 01/14/24 07:45 Respiratory Rate 18 01/14/24 07:45 Blood Pressure 136/87 01/14/24 07:45 Pulse Oximetry 93 01/14/24 07:45 Temperature 37.2 C 01/14/24 07:45 Temperature Source Skin 01/14/24 07:45 Pulse 120 H 01/14/24 07:45 Respiratory Rate 18 01/14/24 07:45 Respiratory Effort Normal, Non-Labored 01/14/24 07:48 Blood Pressure 136/87 01/14/24 07:45 Blood Pressure Position Sitting 01/14/24 07:45 Pulse Oximetry 93 01/14/24 07:45 Oxygen Delivery Method Room Air 01/14/24 07:45 Oxygen Flow Rate 0 01/14/24 07:45 Pain Level 0 01/14/24 07:45 Medical Decision Making Evaluation for psychiatric care. I reviewed the patient's medical record and noted his recent visits including evaluation yesterday. He initially stated that he was willing to stay. However he now states that he would like to leave. Patient has generally been noncompliant with care while here in the emergency department. Refusing to give up his sweatshirt or his personal belongings per our psychiatric protocol. He yelled at the nurse about pain in neck, and that that is all they care about. Patient began requesting benzos for his anxiety and when I informed him that he would get his home medications, he stated that he would like to leave because were not going to give him what he wants. At this time the patient has the capacity to make his own medical decisions and I am happy to discharge him from the emergency department. He understands he can return at any time to resume care or to be evaluated. Medical Records Medical records reviewed: Yes I reviewed the patient's medical records. Quality:SDOH Health Related Social Needs: No Data to Display PFSH All Active Problems Malingering (Acute) Active substance abuse (Acute) Manipulative behavior (Acute) Non-compliance (Acute) Problem, psychiatric (Acute) Problem, psychiatric (Acute) Chronic left shoulder pain (Acute) Hypertension (Chronic) Hypogonadism, male (Chronic 03/24/18) Prior appt Dr. Charles at [facility] in [place], lost to FU; testosterone gel not effective, IM injections with improved levels Tobacco abuse (Chronic 11/19/17) 1 ppd Opioid dependence in remission (Chronic) using Suboxone through [facility]. Major depressive disorder, recurrent, severe with psychotic symptoms (Acute) H/o Hospitalization at [facility]; psych meds managed through [facility]. 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 Meets with therapist twice monthly; has had take-home in the past. ADD (attention deficit disorder) Surgical History S/P ACL reconstruction (2022) S/P hernia repair Family History Mother Diabetes Cancer thyroid cancer Father Diabetes Essential hypertension Paternal Grandfather No problems noted. Maternal Grandfather Stroke Paternal Uncle Cancer stomach cancer Other Family history of diabetes mellitus (DM) Social History Smoking/Tobacco Use Status: Current every day Tobacco Type: cigarettes Quit status: considering quitting Counseling given: provider counseling Smoking risk assessment performed?: Yes Alcohol Intake: former Year quit: 2021 Counseling given: Yes Drug use: Current Sobriety Substance use type: does not use Counseling provided: treatment program Details: Pt. states its been years since use. 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
[2024-01-14 13:36] VITALS: BP 136/87; PULSE 120; RESP 18; TEMP 37.2; O2SAT 93
== END 2024-01-14 13:36 | disposition home or self-care (01) ==
PROVIDERS: Emergency Provider Emergency Medicine; PCP Family Medicine
DX: F33.3 Major depressive disorder, recurrent, severe with psychotic symptoms; Z91.198 Patient's noncompliance with other medical treatment and regimen for other reason; R46.89 Other symptoms and signs involving appearance and behavior; Z76.5 Malingerer [conscious simulation]
CPT/HCPCS: 99283

== ENCOUNTER 2024-01-14 17:22 | Emergency (ER) | payer MEDICAID, SELFPAY ==
[2024-01-14 17:24] VITALS: BP 214/109; PULSE 131; RESP 20; TEMP 36.7; O2SAT 95
--- NOTE | 2024-01-14 17:37 | W.ED.GENAD ---
Discharge Plan Disposition Patient Disposition: Eloped Condition: Stable Discharge Details Clinical Impression: Anxiety, Auditory hallucinations Primary Care Provider: Sophia Kelsey ED Provider: Jamie Haile [place] and New Rx's Prescriptions: No Action lisdexamfetamine [Vyvanse] 40 mg capsule 60 mg PO DAILY buprenorphine-naloxone [Suboxone] 8-2 mg film 1 film buccal Q24H Patient Comments: confirmed with [facility] 01/11/24 buprenorphine-naloxone [Suboxone] 12-3 mg film 1 film buccal Q24H Patient Comments: confirmed with [facility] 01/11/24 lisinopril 10 mg tablet 10 mg PO DAILY Qty: 90 3RF triamcinolone acetonide 0.025 % cream 1 applic topical DAILY PRN (Reason: rash) Qty: 15 0RF Rx Instructions: apply 0.25gm to face daily prn seborrhea quetiapine [Seroquel] 400 mg tablet 450 mg PO BID clonidine HCl 0.2 mg tablet 0.2 mg PO Q12H PRN Rx Instructions: Last RX'd by Patricia [place] October 2022 melatonin 3 mg capsule 6 mg PO HS PRN Rx Instructions: Last RX'd by [place]. gabapentin 300 mg capsule 300 mg PO TID Rx Instructions: Last RX'd by [place] on 11/19/2022. -hb testosterone cypionate 200 mg/mL oil 200 mg IM Q2W Qty: 1 5RF naproxen 250 mg tablet 250 - 500 mg PO BID PRNQty: 40 0RF Rx Instructions: take with a meal HPI General Mode of arrival: ambulatory. Date/Time Provider Initiated Documentation: 01/14/24 17:31. Limitations to Documentation: no limitations. Information obtained by: patient, RN notes reviewed and old records reviewed. HPI Narrative: Patient presents to ED with complaint of anxiety and continued auditory hallucinations. Patient with history of same but appears to have decompensated in this last week. Voices are more prominent, distracting, commanding. Patient denies any SI or HI. He is having more and more difficulty determining what is real and what is not real. He has been here 3 times. His initial visit on the resulted in him leaving shortly after coming in. He returned on the and stayed for voluntary placement and stayed until the waiting for bed availability. At that time his anxiety got the best of him and he asked for discharge. He returned to the ED this morning but left after being informed he would not be getting benzodiazepines, just his home medications. He denies any street drug use and denies any alcohol use. He does have prior history of substance and alcohol abuse. Adamantly denies any alcohol use. He denies any headache, chest pain, shortness of breath, fever, cough, abdominal pain, vomiting, diarrhea. He has had some mild nausea on and off. He has been able to eat and drink normally. Related Data Home Medications Medication Instructions Recorded Confirmed clonidine HCl 0.2 mg tablet 0.2 mg PO Q12H PRN 12/04/22 01/14/24 gabapentin 300 mg capsule 300 mg PO TID 12/04/22 01/14/24 melatonin 3 mg capsule 6 mg PO HS PRN 12/04/22 01/14/24 buprenorphine 12 mg-naloxone 3 mg 1 film buccal Q24H 01/03/23 01/14/24 sublingual film (Suboxone) buprenorphine 8 mg-naloxone 2 mg 1 film buccal Q24H 01/03/23 01/14/24 sublingual film (Suboxone) lisdexamfetamine 40 mg capsule 60 mg PO DAILY 01/03/23 01/14/24 (Vyvanse) naproxen 250 mg tablet 250 - 500 mg (1 - 2 x 250 mg) PO 03/28/23 01/14/24 BID PRN #40 tabs triamcinolone acetonide 0.025 % 1 applic topical DAILY PRN rash 08/06/23 01/14/24 topical cream #15 grams quetiapine 400 mg tablet (Seroquel) 450 mg PO BID 09/24/23 01/14/24 lisinopril 10 mg tablet 10 mg PO DAILY #90 tabs 11/14/23 01/14/24 testosterone cypionate 200 mg/mL 200 mg IM Q2W #1 mL 11/19/23 01/14/24 intramuscular oil Previous Rx's Medication Instructions Recorded naproxen 250 mg tablet 250 - 500 mg (1 - 2 x 250 mg) PO 03/28/23 BID PRN #40 tabs triamcinolone acetonide 0.025 % 1 applic topical DAILY PRN rash 08/06/23 topical cream #15 grams lisinopril 10 mg tablet 10 mg PO DAILY #90 tabs 11/14/23 testosterone cypionate 200 mg/mL 200 mg IM Q2W #1 mL 11/19/23 intramuscular oil Allergies Allergy/AdvReac Type Severity Reaction Status Date / Time No Known Allergies Allergy Verified 01/14/24 17:32 General Stated Complaint: PsychEval PACO: 2 Review of Systems Narrative: Per HPI Exam Narrative Exam Narrative: Const: WDWN male in NAD. HEENT: NC/AT. Normal facial exam. Eyes: Normal conjunctiva and sclera. Neck: Supple. Trachea midline. Lungs: Normal respiratory effort. Lungs are clear. Cor: RRR without murmur/gallop. Good radial pulses. GI: Soft. NT/ND. No guarding or rebound. Neuro: A+O x 3. Normal speech, mentation, gait. Cranial nerves II - XII grossly intact. No gross motor or sensory deficit. No tremor. Ext: No C/C/E. Psych: Anxious. No SI/HI. Hearing voices and having conversations, responding to internal stimuli. Course Vital Signs Vital signs: Vital Signs Temperature 98.1 F 01/14/24 17:24 Pulse 131 H 01/14/24 17:24 Respiratory Rate 20 01/14/24 17:24 Blood Pressure 214/109 H 01/14/24 17:24 Pulse Oximetry 95 01/14/24 17:24 Temperature 98.1 F 01/14/24 17:24 Temperature Source Skin 01/14/24 17:24 Pulse 131 H 01/14/24 17:24 Respiratory Rate 20 01/14/24 17:24 Respiratory Effort Normal, Non-Labored 01/14/24 17:30 Blood Pressure 214/109 H 01/14/24 17:24 Blood Pressure Position Sitting 01/14/24 17:24 Pulse Oximetry 95 01/14/24 17:24 Oxygen Delivery Method Room Air 01/14/24 17:24 Oxygen Flow Rate 0 01/14/24 17:24 Pain Level 0 01/14/24 17:24 Medical Decision Making Patient returns to ED with anxiety and auditory hallucinations. At this point in time he is clearly having conversations and internal stimuli likely ramping up his anxiety. He reports that he is left both times from here due to anxiety. He understands that he needs help but the voices eventually get the best of him and convince him to leave. He has no physical complaints. I was initially concerned for potential alcohol or benzo withdrawal given his elevated blood pressure and heart rate. However he has normal mental status, no physical complaints, no diaphoresis or tremor. Blood pressure did come to a more normal level once he was back in the room. Heart rate also came down to some degree. He adamantly denies alcohol use and has been sober for some time. I do believe him and I do believe vital signs are being driven by anxiety. I had a long talk with him regarding his need for help and his need to stay so that we can get him this help. He does recognize that and he does recognize that leaving him is going to just lead to more decompensation. He is agreeable to try something else besides benzodiazepines. He has been on Zyprexa previously with no help. He is agreeing to trying Geodon. I have agreed to give him low-dose Ativan with this. He did take his clonidine, Seroquel, gabapentin prior to coming in. EKG and repeat labs obtained. I did not repeat his TSH. His EKG is sinus tachycardia with normal axis, intervals, nonspecific ST changes only. Laboratory studies with slightly elevated white count 11.3 but normal hemoglobin and platelets. His urine drug screen is positive for amphetamines which has been due to his outpatient Vyvanse use. CMP is normal. Alcohol is negative. Tylenol and aspirin negative. In addition to [facility] evaluation I requested a formal psychiatric consultation. I discussed this with the patient and he seemed very appreciative. This was supposed to occur at 8 PM. Around 7:30 PM patient reported being anxious again. We discussed that in 30 minutes he would be seen by psychiatry and maybe we can come up with a plan. He seemed on board with this as well. Subsequently walked out of the department prior to this occurring. Again, no grounds for EE. I do think at some point he will decompensate enough that he will require EE, just not currently. Medical Records Medical records reviewed: Yes I reviewed the patient's medical records. Lab Data Lab results reviewed: Yes I reviewed the patient's lab results. ECG Data Attestation: I personally reviewed and interpreted this ECG (s) as follows: Prior ECG tracings: available for review Interpretation: see EKG; normal QT interval Quality:SDOH Health Related Social Needs: No Data to Display PFSH All Active Problems (Updated 01/14/24 @ 20:05 by Jamie Haile MD) Auditory hallucinations (Acute) Anxiety (Chronic) Malingering (Acute) Active substance abuse (Acute) Manipulative behavior (Acute) Non-compliance (Acute) Problem, psychiatric (Acute) Problem, psychiatric (Acute) Chronic left shoulder pain (Acute) Hypogonadism, male (Chronic 03/24/18) Prior appt Dr. Charles at [facility] in [place], lost to FU; testosterone gel not effective, IM injections with improved levels Tobacco abuse (Chronic 11/19/17) 1 ppd Major depressive disorder, recurrent, severe with psychotic symptoms (Chronic) H/o Hospitalization at [facility]; psych meds managed through [facility]. Seborrheic dermatitis (Acute) Left ACL tear (Acute) Derangement of medial meniscus of left knee due to old injury (Acute) Medical History Opioid dependence in remission using Suboxone through [facility]. Hypertension Hx of cardiomyopathy Polysubstance abuse QT prolongation Closed right ankle fracture (~09/2019) Alcohol abuse ADD (attention deficit disorder) Surgical History S/P ACL reconstruction (2022) S/P hernia repair Family History Mother Diabetes Cancer thyroid cancer Father Diabetes Essential hypertension Paternal Grandfather No problems noted. Maternal Grandfather Stroke Paternal Uncle Cancer stomach cancer Other Family history of diabetes mellitus (DM) Social History Smoking/Tobacco Use Status: Current every day Tobacco Type: cigarettes Quit status: considering quitting Counseling given: provider counseling Smoking risk assessment performed?: Yes Alcohol Intake: former Year quit: 2021 Counseling given: Yes Drug use: Current Sobriety Substance use type: does not use Counseling provided: treatment program Details: Pt. states its been years since use. 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
[2024-01-14 17:50] VITALS: BP 135/97; PULSE 120; RESP 16; O2SAT 96
--- NOTE | 2024-01-14 18:15 | RT.EKG_ITS ---
APPROVED REPORT Exam: Resting ECG Reason for Exam: tachycardia Patient Location: E HR:111 bpm ECG Measurements Heart Rate 111 AXIS VA 125 P 48 QRSd 91 QRS 15 QT 334 T -25 QTc 455 Conclusion Sinus tachycardia...rate> 99 Nonspecific T abnormalities, inferior leads...T <-0.10mV, II III aVF Normal [place] Normal QT Interval I have reviewed and interpreted ECG and agree with software generated interpretation.
[2024-01-14 18:28] LABS: Abs Immature Grans 0.03 10^3/uL (0.0-0.06); Absolute Basophil Count 0.06 10^3/uL (0.0-0.2); Absolute Eosinophil Count 0.21 10^3/uL (0.0-0.7); Absolute Lymphocyte Count 2.72 10^3/uL (1.2-3.4); Basophils % 0.5; Eosinophils % 1.9; HCT 48.3 % (40.0-50.0); HGB 16.1 g/dL (13.5-17.5); Immature Grans % 0.3; Lymphocytes % 24.1; MCH 29.4 pg (27.0-33.0); MCHC 33.3 % (32.0-36.0); MCV 88 fL (80-95); MPV 9.1 fL (8.0-11.0); Neutrophils % 65.2; Platelet Count 265 10^3/uL (130-400); RBC 5.48 10^6/uL (4.36-5.78); RDW 13.6 % (11.8-14.1); RDW-SD 44.3 fL
[2024-01-14 18:29] LABS: Absolute Neutrophil Count 7.37 10^3/uL (1.2-6.7)
[2024-01-14 18:33] LABS: *AMPHETAMINES SCREEN URINE Positive (Negative); *BARBITURATES SCREEN URINE Negative (Negative); *BENZODIAZEPINES SCREEN URINE Negative (Negative); Cannabinoids THC Negative (Negative); Cocaine Screen,Urine Negative (Negative); METHADONE URINE SCREEN Negative (Negative); OPIATES URINE SCREEN Negative (Negative); Tricyclic Antidepressants Negative (Negative)
[2024-01-14] MEDS: Ziprasidone 20 MG CAP PO (18:35)
[2024-01-14] MEDS: LORazepam 1 MG TAB PO (18:35)
[2024-01-14 18:46] LABS: ALT 25 U/L (16-63); AST 18 U/L (15-37); Albumin 3.8 g/dL (3.4-5.0); Alkaline Phosphatase 91 U/L (46-116); BUN 16 mg/dL (7-18); Bilirubin, Total 0.2 mg/dL (0.2-1.0); CREATININE 0.8 mg/dL (0.70-1.30); Chloride 102 mmol/L (98-107); Estimated GFR 112.61 (mL/min/1.73m2); Glucose 105 mg/dL (74-106); Sodium 139 mmol/L (136-145); Total Protein 7.4 g/dL (6.4-8.2)
[2024-01-14 18:54] LABS: ETHANOL BLOOD < 3.0 mg/dL (<10)
[2024-01-14 18:58] LABS: Acetaminophen < 2 ug/mL (10-30); Salicylate 4.2 mg/dL (<2.8)
--- NOTE | 2024-01-14 20:03 | NUR.NOTE ---
Nursing Note: Pt eloped after RN discussed with pt meeting with psychiatry via zoom at 1999 hrs. RN explained to pt that meeting with someone could help with his anxiety and help to formulate a plan to treat his anxiety and the voices he is hearing long-term. Pt was agreeable to the meeting. RN also told pt that if he was still feeling anxious after meeting that RN would alert provider and discuss if it was appropriate for more medication to be ordered to help with his anxiety overnight. Pt agreeable to plan of care; this conversation occurred at 195 hrs. While RN was setting up psychiatry mtg. on Ipad, pt walked out of his room and left the building with all of his belongings (at 1999 hrs).
== END 2024-01-14 20:05 | disposition left against medical advice (07) ==
PROVIDERS: Emergency Provider Emergency Medicine; PCP Family Medicine
DX: R44.0 Auditory hallucinations (principal); F32.A Depression, unspecified; F41.9 Anxiety disorder, unspecified; I10 Essential (primary) hypertension; Z53.29 Procedure and treatment not carried out because of patient's decision for other reasons
CPT/HCPCS: 80053; 80307; 93005; 99284; 80320; 80329; 85025; 93010

== ENCOUNTER 2024-01-16 15:39 | Emergency (ER) | payer MEDICAID, SELFPAY ==
[2024-01-16 15:41] VITALS: BP 146/106; PULSE 112; RESP 16; TEMP 36.8; O2SAT 98
--- NOTE | 2024-01-16 16:00 | ED.GENADUL_ITS ---
Discharge Plan Discharge Details Chief Complaint: Anxiety Primary Care Provider: Sophia Kelsey ED Provider: Danisha José Home Meds and New Rx's Prescriptions: No Action buprenorphine-naloxone [Suboxone] 8-2 mg film 1 film buccal Q24H Patient Comments: confirmed with [facility] 01/11/24 buprenorphine-naloxone [Suboxone] 12-3 mg film 1 film buccal Q24H Patient Comments: confirmed with [facility] 01/11/24 lisdexamfetamine [Vyvanse] 40 mg capsule 50 mg PO DAILY lisinopril 10 mg tablet 10 mg PO DAILY Qty: 90 3RF triamcinolone acetonide 0.025 % cream 1 applic topical DAILY PRN (Reason: rash) Qty: 15 0RF Rx Instructions: apply 0.25gm to face daily prn seborrhea duloxetine 60 mg capsule,delayed release(DR/EC) 60 mg PO DAILY quetiapine 50 mg tablet 50 mg PO DAILY PRN (Reason: anxiety) quetiapine [Seroquel] 400 mg tablet See Rx Instructions PO BID Rx Instructions: as above. clonidine HCl 0.2 mg tablet 0.2 mg PO Q12H PRN Rx Instructions: Last RX'd by [facility] October 2022 melatonin 3 mg capsule 6 mg PO HS PRN Rx Instructions: Last RX'd by [place] [facility]. gabapentin 300 mg capsule 300 mg PO TID Rx Instructions: Last RX'd by [place] [facility] on 11/19/2022. -hb testosterone cypionate 200 mg/mL oil 200 mg IM Q2W Qty: 1 5RF naproxen 250 mg tablet 250 - 500 mg PO BID PRNQty: 40 0RF Rx Instructions: take with a meal HPI General Date/Time Provider Initiated Documentation: 01/16/24 15:40 . HPI Narrative: Dangelo is a 43-year-old male with history of major depressive disorder with psychotic symptoms who presents to the emergency department today for evaluation of depression, anxiety, and auditory hallucinations. He was seen earlier today by his PCP Dr. Kelsey, was found to be in psychosis with auditory hallucinations which is disruptive to functional status, he was sent to the e mergency department today for inpatient psychiatric admission. He is accompanied by his father. He reports he has had increasing auditory hallucinations which are disruptive to his daily life, says that they are telling him he does not have anxiety when he knows that he does have anxiety. Denies HI/SI. No visual hallucinations. Denies recent drug or ETOH use. Admits to tobacco use. He is currently reporting lower back pain that has been ongoing for the last 3 days, he says this is attributed to hunching over. Denies any trauma. No saddle anesthesia, paresthesia/weakness in legs, or gait disturbance. Denies fever/chills, congestion, sore throat, cough, abdominal pain, change in p.o. intake, change in bowel or bladder function. He does have some constipation, says he last had a bowel movement 2 or 3 days ago. Related Data Home Medications Medication Instructions Recorded Confirmed clonidine HCl 0.2 mg tablet 0.2 mg PO Q12H PRN 12/04/22 01/16/24 gabapentin 300 mg capsule 300 mg PO TID 12/04/22 01/16/24 melatonin 3 mg capsule 6 mg PO HS PRN 12/04/22 01/16/24 buprenorphine 12 mg-naloxone 3 mg 1 film buccal Q24H 01/03/23 01/16/24 sublingual film (Suboxone) buprenorphine 8 mg-naloxone 2 mg 1 film buccal Q24H 01/03/23 01/16/24 sublingual film (Suboxone) naproxen 250 mg tablet 250 - 500 mg (1 - 2 x 250 mg) PO 03/28/23 01/16/24 BID PRN #40 tabs triamcinolone acetonide 0.025 % 1 applic topical DAILY PRN rash 08/06/23 01/16/24 topical cream #15 grams lisinopril 10 mg tablet 10 mg PO DAILY #90 tabs 11/14/23 01/16/24 testosterone cypionate 200 mg/mL 200 mg IM Q2W #1 mL 11/19/23 01/16/24 intramuscular oil duloxetine 60 mg capsule,delayed 60 mg PO DAILY 01/16/24 01/16/24 release lisdexamfetamine 40 mg capsule 50 mg PO DAILY 01/16/24 01/16/24 (Vyvanse) quetiapine 400 mg tablet (Seroquel) See Rx Instructions PO BID 01/16/24 01/16/24 quetiapine 50 mg tablet 50 mg PO DAILY PRN anxiety 01/16/24 01/16/24 Previous Rx's Medication Instructions Recorded naproxen 250 mg tablet 250 - 500 mg (1 - 2 x 250 mg) PO 03/28/23 BID PRN #40 tabs triamcinolone acetonide 0.025 % 1 applic topical DAILY PRN rash 08/06/23 topical cream #15 grams lisinopril 10 mg tablet 10 mg PO DAILY #90 tabs 11/14/23 testosterone cypionate 200 mg/mL 200 mg IM Q2W #1 mL 11/19/23 intramuscular oil Allergies Allergy/AdvReac Type Severity Reaction Status Date / Time No Known Allergies Allergy Verified 01/16/24 15:47 General Stated Complaint: Anxiety PACO: 4 Review of Systems Narrative: see HPI Exam Const General: cooperative, comfortable and no acute distress Nutritional Appearance: average body habitus Orientation: alert and awake Resp Effort & Inspection: normal respiratory effort and able to speak in complete sentences Auscultation: clear to auscultation bilaterally Cardio Rate: regular rate Rhythm: regular rhythm Back/Spine/Pelvis Thoracic/Lumbar Spine: thoracic and lumbar spine normal to inspection Neuro Cranial Nerves: CN's II-XI intact bilaterally Cognition: normal cognition Speech: speech normal Gait: normal gait Motor: muscle tone normal throughout and strength 5/5 throughout Sensory Exam: no sensory deficits noted Psych Appearance: grossly normal Mood: anxious mood and irritable mood Affect: anxious affect Attitude: cooperative and guarded Other: responding to external stimulus, appears to be talking with auditory hallucinations Course Vital Signs Vital signs: Vital Signs Temperature 36.8 C 01/16/24 15:41 Pulse 112 H 01/16/24 15:41 Respiratory Rate 16 01/16/24 15:41 Blood Pressure 146/106 H 01/16/24 15:41 Pulse Oximetry 98 01/16/24 15:41 Temperature 36.8 C 01/16/24 15:41 Temperature Source Tympanic 01/16/24 15:41 Pulse 112 H 01/16/24 15:41 Respiratory Rate 16 01/16/24 15:41 Blood Pressure 146/106 H 01/16/24 15:41 Blood Pressure Position Sitting 01/16/24 15:41 Pulse Oximetry 98 01/16/24 15:41 Oxygen Delivery Method Room Air 01/16/24 15:41 Oxygen Flow Rate 0 01/16/24 15:41 Pain Level 0 01/16/24 15:41 Medical Decision Making Dangelo is a 43-year-old male with history of major depressive disorder with psychotic symptoms who presents to the emergency department today for evaluation of depression, anxiety, and auditory hallucinations. He was seen earlier today by his PCP Dr. Kelsey, was found to be in psychosis with auditory hallucinations which is disruptive to functional status, he was sent to the emergency department today for inpatient psychiatric admission. He is accompanied by his father. He reports he has had increasing auditory hallucinations which are disruptive to his daily life, says that they are telling him he does not have anxiety when he knows that he does have anxiety. Denies HI/SI. No visual hallucinations. Denies recent drug or ETOH use. Admits to tobacco use. He is currently reporting lower back pain that has been ongoing for the last 3 days, he says this is attributed to hunching over. Denies any trauma. No saddle anesthesia, paresthesia/weakness in legs, or gait disturbance. Denies fever/chills, congestion, sore throat, cough, abdominal pain, change in p.o. intake, change in bowel or bladder function. He does have some constipation, says he last had a bowel movement 2 or 3 days ago. Physical exam remarkable for markedly agitated patient who occasionally appears to be responding to external stimuli. He is alert and oriented, does appear anxious. Easy work of breathing, lung sounds clear bilaterally. Normal heart sounds, mild tachycardia noted. 5 out of 5 muscle strength to upper and lower extremities. Sensation intact. Cranial nerves II-XII grossly intact. Normal gait. No T-spine or L-spine step-off/tenderness/deformity. No obvious paraspinal tenderness. History and presentation consistent with anxiety/depression with psychotic features. No red flags concerning for organic etiology, this is consistent with previous presentations per PCP and previous ED visits. No red flags for back pain concerning for serious etiology requiring diagnostic imaging. Unable to clear patient with smart medical clearance due to tachycardia, which appears consistent with anxiety. Bloodwork and urine labs ordered. I indepen dently interpreted the following tests: CBC reassuring, mild leukocytosis noted with WBC 12.09, c/w stress demargination in the absence of focal complaint. CMP, TSH, UA reassuring. UDS positive only for tricyclics, likely false positive due to Seroquel use. Pt insists he has not taken any medications/drugs other than those prescribed to him. Pt medically cleared for crisis eval. Discussed avoidance of benzos with patient. Advised him that PCP recommended Seroquel and hydroxyzine as needed for anxiety. He is agreeable with plan, is being offered Seroquel at this time. Advil also given for musculoskeletal back pain. I did review clinic visit note from today (Dr Kelsey) and ED visit from 01/14/2024. During last ED visit patient was evaluated by psychiatry, who recommended consultation with psychiatry when he returns, as he had left the dept. 1830: Patient eloped while being safety planned [facility]. Patient did not meet criteria for EE. Plan for him to follow-up at [facility] tomorrow Quality:SDOH Health Related Social Needs: No Data to Display PFSH All Active Problems (Updated 01/16/24 @ 13:24 by Sophia Kelsey MD) Auditory hallucinations (Acute) Anxiety (Chronic) Malingering (Acute) Chronic left shoulder pain (Acute) Hypogonadism, male (Chronic 03/24/18) Prior appt Dr. Charles at [facility] in [place], lost to FU; testosterone gel not effective, IM injections with improved levels Tobacco abuse (Chronic 11/19/17) 1 ppd Major depressive disorder, recurrent, severe with psychotic symptoms (Chronic) H/o Hospitalization at [facility]; psych meds managed through [facility]. Seborrheic dermatitis (Acute) Left ACL tear (Acute) Derangement of medial meniscus of left knee due to old injury (Acute) Medical History Opioid dependence in remission using Suboxone through [facility]. Hypertension Hx of cardiomyopathy Polysubstance abuse QT prolongation Closed right ankle fracture (~09/2019) Alcohol abuse ADD (attention deficit disorder) Surgical History S/P ACL reconstruction (2022) S/P hernia repair Family History Mother Diabetes Cancer thyroid cancer Father Diabetes Essential hypertension Paternal Grandfather No problems noted. Maternal Grandfather Stroke Paternal Uncle Cancer stomach cancer Other Family history of diabetes mellitus (DM) Social History Smoking/Tobacco Use Status: Current every day Tobacco Type: cigarettes Quit status: considering quitting Counseling given: provider counseling Smoking risk assessment performed?: Yes Alcohol Intake: former Year quit: 2021 Counseling given: Yes Drug use: Current Sobriety Substance use type: does not use Counseling provided: treatment program Details: Pt. states its been years since use. 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
[2024-01-16 16:26] LABS: Bilirubin Negative (Negative); Blood Negative (Negative); Clarity Clear (Clear); Glucose Negative (Negative); Ketones Negative (Negative); Leukocyte Esterase Negative (Negative); Nitrite Negative (Negative); Urobilinogen 0.2 mg/dL (Up to 0.2)
[2024-01-16] MEDS: Ibuprofen 400 MG TAB PO (16:27)
[2024-01-16] MEDS: QUEtiapine 25 MG TAB 50 MG PO (16:28)
[2024-01-16 16:33] LABS: *AMPHETAMINES SCREEN URINE Positive (Negative); *BARBITURATES SCREEN URINE Negative (Negative); *BENZODIAZEPINES SCREEN URINE Negative (Negative); Cannabinoids THC Negative (Negative); Cocaine Screen,Urine Negative (Negative); METHADONE URINE SCREEN Negative (Negative); OPIATES URINE SCREEN Negative (Negative)
[2024-01-16 16:33] LABS: Abs Immature Grans 0.03 10^3/uL (0.0-0.06); Absolute Basophil Count 0.06 10^3/uL (0.0-0.2); Absolute Eosinophil Count 0.12 10^3/uL (0.0-0.7); Absolute Lymphocyte Count 2.68 10^3/uL (1.2-3.4); Absolute Monocyte Count 0.92 10^3/uL (0.1-0.8); Absolute Neutrophil Count 8.28 10^3/uL (1.2-6.7); Basophils % 0.5; HCT 49.5 % (40.0-50.0); HGB 16.4 g/dL (13.5-17.5); Immature Grans % 0.2; Lymphocytes % 22.2; MCH 29.5 pg (27.0-33.0); MCHC 33.1 % (32.0-36.0); MCV 89 fL (80-95); MPV 9.4 fL (8.0-11.0); Monocytes % 7.6; Neutrophils % 68.5; Platelet Count 271 10^3/uL (130-400); RBC 5.56 10^6/uL (4.36-5.78); RDW 13.8 % (11.8-14.1); RDW-SD 45.2 fL; WBC 12.09 10^3/uL (4.4-10.8)
[2024-01-16 16:49] LABS: ALT 28 U/L (16-63); AST 18 U/L (15-37); Albumin 4.1 g/dL (3.4-5.0); Alkaline Phosphatase 108 U/L (46-116); BUN 19 mg/dL (7-18); Bilirubin, Total 0.2 mg/dL (0.2-1.0); CREATININE 0.9 mg/dL (0.70-1.30); Calcium 9.2 mg/dL (8.5-10.1); Chloride 101 mmol/L (98-107); Estimated GFR 108.68 (mL/min/1.73m2); Glucose 88 mg/dL (74-106); Potassium 3.9 mmol/L (3.5-5.1); Sodium 136 mmol/L (136-145); Total Protein 7.9 g/dL (6.4-8.2)
[2024-01-16 16:53] LABS: Salicylate 4.9 mg/dL (<2.8)
[2024-01-16 16:53] LABS: Tricyclic Antidepressants Positive (Negative)
[2024-01-16 16:54] LABS: Acetaminophen < 2 ug/mL (10-30)
[2024-01-16 16:57] LABS: ETHANOL BLOOD < 3.0 mg/dL (<10)
== END 2024-01-16 18:31 | disposition left against medical advice (07) ==
PROVIDERS: Emergency Provider Nurse Practitioner Family; PCP Family Medicine
DX: F41.9 Anxiety disorder, unspecified (principal); R44.0 Auditory hallucinations; F32.A Depression, unspecified; I10 Essential (primary) hypertension; F17.210 Nicotine dependence, cigarettes, uncomplicated; Z53.29 Procedure and treatment not carried out because of patient's decision for other reasons
CPT/HCPCS: 36415; 80053; 80307; 99283; 80320; 80329; 81003; 84443; 85025

== ENCOUNTER 2024-01-24 11:03 | Emergency (ER) | payer MEDICAID, SELFPAY ==
--- NOTE | 2024-01-24 11:06 | W.ED.GENAD ---
Discharge Plan Discharge Details Chief Complaint: PsychEval Clinical Impression: Auditory hallucinations Primary Care Provider: Sophia Kelsey ED Provider: Diego Redman [place] Meds and New Rx's Prescriptions: No Action buprenorphine-naloxone [Suboxone] 8-2 mg film 1 film buccal Q24H Patient Comments: confirmed with [facility] 01/11/24 buprenorphine-naloxone [Suboxone] 12-3 mg film 1 film buccal Q24H Patient Comments: confirmed with [facility] 01/11/24 lisdexamfetamine [Vyvanse] 40 mg capsule 50 mg PO DAILY lisinopril 10 mg tablet 10 mg PO DAILY Qty: 90 3RF triamcinolone acetonide 0.025 % cream 1 applic topical DAILY PRN (Reason: rash) Qty: 15 0RF Rx Instructions: apply 0.25gm to face daily prn seborrhea duloxetine 60 mg capsule,delayed release(DR/EC) 60 mg PO DAILY quetiapine 50 mg tablet 50 mg PO DAILY PRN (Reason: anxiety) quetiapine [Seroquel] 400 mg tablet See Rx Instructions PO BID Rx Instructions: as above. clonidine HCl 0.2 mg tablet 0.2 mg PO Q12H PRN Rx Instructions: Last RX'd by [facility] October 2022 melatonin 3 mg capsule 6 mg PO HS PRN Rx Instructions: Last RX'd by [facility]. gabapentin 300 mg capsule 300 mg PO TID Rx Instructions: Last RX'd by [facility] on 11/19/2022. -hb testosterone cypionate 200 mg/mL oil 200 mg IM Q2W Qty: 1 5RF naproxen 250 mg tablet 250 - 500 mg PO BID PRNQty: 40 0RF Rx Instructions: take with a meal HPI General Date/Time Provider Initiated Documentation: 01/24/24 11:05. HPI Narrative: MDM This is an overall very well-appearing mildly tachycardic but normothermic 43-year-old male with history of anxiety and auditory hallucinations now with worsening auditory hallucinations. Patient denies suicidal homicidal ideations so we will defer clinical patient's safety monitor at this point in time. Not altered to suggest encephalitis. No fevers or neck stiffness to suggest meningitis. Not an alcoholic to suggest increased risk for withdrawal. Patient is not markedly hypertensive nor tachycardic to suggest sympathomimetic toxidrome. Not flushed nor altered to suggest anticholinergic toxidrome. No pinpoint pupils so doubt opiate toxidrome. Patient lacks suicidal and homicidal ideation nonetheless will reach out to [facility] in the setting of patient's auditory hallucinations. He is calm and cooperative at this point and has no medical complaints. Will ensure his heart rate is below 110 bpm and then will consider him cleared based on smart medical clearance. I have ordered him a regular diet on a safety tray. 11:45 AM Repeat heart rate 98. I spoke with Vania Araujo from [facility]. She reported that the patient would be voluntary for inpatient placement. Will reorder the patient's home medications. 12:50 PM Patient reportedly became agitated. He reports being on home hydroxyzine. I have ordered 25 mg hydroxyzine as needed 3 times daily. 1:[address] [facility] requested an ECG and a urine drug screen both of which are ordered. 2:24 PM ECG showing narrow complex normal sinus rhythm at a rate of 98. Normal axis. Intervals within normal limits. T wave inversion in lead III. No ST segment abnormalities. T wave flattening in aVF. No acute injury pattern. Compared to prior dated earlier this month no significant changes. 4:15 PM No acute behavioral issues on my shift will sign patient out to oncoming evening provider. SMART medical clearance (if all five of the following are answered ``no?? then the patient is considered medically cleared and no testing is indicated): Suspect new onset psychiatric condition or features? [No] Medical conditions that require screening? [No] Diabetes (FSBS less than 60 or greater the 250) Possibility of (age 12 - 50) Other complaints that require screening Abnormal: [No] Vital signs? Temp: greater than 38.0 degrees C (100.4 degrees F) HR: less than 50 or greater than 110 BP: less than 100 systolic or greater than 180/110 (2 consecutive readings 10 min apart) RR: less than 8 or greater than 22 O2 sat: less than 95 % on room air Mental status? Cannot answer name, month/year and location (minimum A/Ox 3) If clinically intoxicated, HII score 4 or more? Physical Exam (unclothed)? Risky presentation? [No] Age less than 12 or greater than 55 Possibility of ingestion (screen all suicidal patients) Eating disorders Potential for alcohol withdrawal (daily use > or equal to 2 weeks) Ill appearing, significant injury, prolonged struggle or ``found down?? Therapeutic levels needed? [No] Phenytoin, Valproic Acid, [place], Digoxin, Warfarin, Carbamazepine Chronic conditions affecting the care of the patient: Auditory hallucinations History obtained from an outside historian: N/A External record review: N/A Medications: Home medicines ordered Social determinants of health affecting disposition: N/A Management discussed with: [facility] Treatment/interventions considered: N/A Response to therapies provided: N/A HPI This is a 43-year-old male with history of auditory hallucinations via the emergency department via private vehicle in setting of worsening auditory hallucinations. Patient will not describe his auditory hallucinations. He reports history of anxiety for which she takes clonidine and hydroxyzine. He is also on quetiapine. These doses have been stable. Patient has had an increase recently in his gabapentin dose. He denies visual hallucinations. He denies homicidal and suicidal ideation. He is a daily tobacco user but denies routine ethanol and illicits. He denies shortness of breath chest pain dysuria frequency abdominal pain. Exam General: Well-appearing in no acute distress speaking in complete sentences. Head: Normocephalic, atraumatic. Eye: Extraocular eye movements intact. No conjunctival injection. No scleral icterus. Ear, nose, mouth, throat: Grossly normal inspection. Normal voice, handling secretions normally. Neck: Trachea midline. Cardiovascular: Well-perfused distal extremities. Respiratory: Nonlabored respiration. Gastrointestinal: Nondistended abdomen. Musculoskeletal: No edema. Moving all 4 extremities spontaneously. Skin: Normal for age and race, grossly normal temperature and turgor. No acute rash. Neurologic: Alert and appropriate, no apparent acute deficits. Not tremulous. Psychiatric: Mood and manner are appropriate. Grooming and personal hygiene are appropriate. No pressured speech. No flight of ideas. No visual hallucinations. Related Data Home Medications Medication Instructions Recorded Confirmed clonidine HCl 0.2 mg tablet 0.2 mg PO Q12H PRN 12/04/22 01/24/24 gabapentin 300 mg capsule 300 mg PO TID 12/04/22 01/24/24 melatonin 3 mg capsule 6 mg PO HS PRN 12/04/22 01/24/24 buprenorphine 12 mg-naloxone 3 mg 1 film buccal Q24H 01/03/23 01/24/24 sublingual film (Suboxone) buprenorphine 8 mg-naloxone 2 mg 1 film buccal Q24H 01/03/23 01/24/24 sublingual film (Suboxone) naproxen 250 mg tablet 250 - 500 mg (1 - 2 x 250 mg) PO 03/28/23 01/24/24 BID PRN #40 tabs triamcinolone acetonide 0.025 % 1 applic topical DAILY PRN rash 08/06/23 01/24/24 topical cream #15 grams lisinopril 10 mg tablet 10 mg PO DAILY #90 tabs 11/14/23 01/24/24 testosterone cypionate 200 mg/mL 200 mg IM Q2W #1 mL 11/19/23 01/24/24 intramuscular oil duloxetine 60 mg capsule,delayed 60 mg PO DAILY 01/16/24 01/24/24 release lisdexamfetamine 40 mg capsule 50 mg PO DAILY 01/16/24 01/24/24 (Vyvanse) quetiapine 400 mg tablet (Seroquel) See Rx Instructions PO BID 01/16/24 01/24/24 quetiapine 50 mg tablet 50 mg PO DAILY PRN anxiety 01/16/24 01/24/24 Previous Rx's Medication Instructions Recorded naproxen 250 mg tablet 250 - 500 mg (1 - 2 x 250 mg) PO 03/28/23 BID PRN #40 tabs triamcinolone acetonide 0.025 % 1 applic topical DAILY PRN rash 08/06/23 topical cream #15 grams lisinopril 10 mg tablet 10 mg PO DAILY #90 tabs 11/14/23 testosterone cypionate 200 mg/mL 200 mg IM Q2W #1 mL 11/19/23 intramuscular oil Allergies Allergy/AdvReac Type Severity Reaction Status Date / Time No Known Allergies Allergy Verified 01/24/24 11:28 General PACO: 4 Medical Decision Making Quality:SDOH Health Related Social Needs: No Data to Display PFSH All Active Problems (Updated 01/24/24 @ 11:26 by Diego Redman MD) Auditory hallucinations (Acute) Auditory hallucinations (Acute) Anxiety (Chronic) Malingering (Acute) Chronic left shoulder pain (Acute) Hypogonadism, male (Chronic 03/24/18) Prior appt Dr. Charles at [facility] in [place], lost to FU; testosterone gel not effective, IM injections with improved levels Tobacco abuse (Chronic 11/19/17) 1 ppd Major depressive disorder, recurrent, severe with psychotic symptoms (Chronic) H/o Hospitalization at [facility]; psych meds managed through [facility]. Seborrheic dermatitis (Acute) Left ACL tear (Acute) Derangement of medial meniscus of left knee due to old injury (Acute) Medical History Opioid dependence in remission using Suboxone through [facility]. Hypertension Hx of cardiomyopathy Polysubstance abuse QT prolongation Closed right ankle fracture (~09/2019) Alcohol abuse ADD (attention deficit disorder) Surgical History S/P ACL reconstruction (2022) S/P hernia repair Family History Mother Diabetes Cancer thyroid cancer Father Diabetes Essential hypertension Paternal Grandfather No problems noted. Maternal Grandfather Stroke Paternal Uncle Cancer stomach cancer Other Family history of diabetes mellitus (DM) Social History Smoking/Tobacco Use Status: Current every day Tobacco Type: cigarettes Quit status: considering quitting Counseling given: provider counseling Smoking risk assessment performed?: Yes Alcohol Intake: former Year quit: 2021 Counseling given: Yes Drug use: Current Sobriety Substance use type: does not use Counseling provided: treatment program Details: Pt. states its been years since use. 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
[2024-01-24 11:11] VITALS: BP 147/98; PULSE 111; RESP 20; TEMP 37.3; O2SAT 95
[2024-01-24 11:31] VITALS: PULSE 98; O2SAT 96
[2024-01-24] MEDS: Nicotine 4 MG GUM CH ×2 (11:48→13:52)
--- NOTE | 2024-01-24 12:56 | PDOC.MHCN ---
Date of service: 01/24/24 Time of Service: 11:45 PHQ-9 Over the last 2 weeks, how often have you been bothered by any of the following problems? 1. Little interest or pleasure in doing things: nearly every day 2. Feeling down, depressed, or hopeless: nearly every day 3. Trouble falling or staying asleep, or sleeping too much: nearly every day 4. Feeling tired or having little energy: more than half the days 5. Poor appetite or overeating: nearly every day 6. Feeling bad about yourself - or that you are a failure or have let yourself and your family down: more than half the days 7. Trouble concentrating on things, such as reading the newspaper or watching television: nearly every day 8. Moving or speaking so slowly that other people could have noticed? - Or the opposite - being so fidgety or restless that you have been moving around a lot more than usual: not at all 9. Thoughts that you would be better off or of hurting yourself in some way: not at all Total score: 19 If you checked off any problems, how difficult have these problems made it for you to do your work, take care of things at home, or get along with other people?: extremely difficult PHQ-9 Results: Positive Source: Developed by Drs. Jamie Gustafson, Violeta Sorenson, Perry Dwyer and colleagues, with an educational didi from [employer]. Suicide Severity Rate CSSRS Have you wished you were or wished you could go to sleep and not wake up?: No Have you actually had any thoughts of killing yourself?: No CSSRS3 Have you ever done anything, started to do anything or prepared to do anything to end your life?: Yes CSSRS4 Was this within the past three months?: No Screening Score Total Score: 2 Screening: Positive Mental Health Emergency Note Release [facility] release signed:: Yes Reason for Visit Dangelo presents to [facility] today to seek voluntary inpatient treatment. Per Dangelo's report the voices have been increasing and he spoke to his professional supports before coming into the emergency room. In the last 2 weeks has the pt presented for ES prior to today?: Unknown Client Information Client is: [employer] Well Housed: Yes Non Suicidal Self Injury Current: No History: No Safety Risk/Harm to Self or Others Current Ideation to Harm Self or Others: No Risk: Does risk to harm exist?: No Risk: N/A Duty to warn indicated: No Asssessment/Mental Status Appearance: Well groomed Attitude: Cooperative Behavior: Unremarkable Speech: Normal Affect: Cogruent with mood Mood: Stressed and Anxious Thought process: Unremarkable Hallucinations: yes, Auditory Attention: Wandering Orientation: Fully orientated Memory: Intact Insight: Fair Judgement: Fair Neurovegetative Symptoms Sleep: Decrease Appetitie: Decrease Interests: Decrease Energy: Decrease Libido: Not applicable Substance Use: Do you use nicotine?: No Have you used substances in the last 7 days?: No Additional Issues: Assaultive/Threatening Behavior: No Medical Concerns: No Client engaged in active self harm w/weapon: No Threatening to run away: No Child reported abuse/neglect: No Voluntarily presenting for services: Yes Domestic violence is a concern: No Extreme Psychosis or extreme behavior is present: No Impression Dangelo presents to [facility] today to seek voluntary inpatient treatment as he reports he has been hearing voices and they have continuously got worse over the last few weeks. Dangelo is seen via Zoom by this medical technical writer, sitting on his hospital bed in street clothes, well groomed, and cooperative. Dangelo is witnessed by this medical technical writer responding to internal stimuli and even states hold on ma'am and began talking to what was air as seen by this medical technical writer. Dangelo identified that he knew he was not talking to this medical technical writer and that it was a voice. Dangelo denies current thoughts of wanting to harm himself or others. Dangelo reports he has been taking all his medications as prescribed and been engaging in his treatment plan as he is supposed to. Dangelo reports in addition to his voices, he is also feeling symptoms of his depression and anxiety. Dangelo reports a poor appetite, trouble sleeping, and lack of interest in life. At this time, Dangelo is seeking voluntary inpatient treatment and per observation by this medical technical writer Dangelo is a client in need of short term stabilization.? Plan/Disposition Recommended Disposition: Hospitalization (Referrals sent on 01/23 @ 1245pm) facilities contacted. Plan: Dangelo will remain at [facility] until voluntary inpatient treatment can be secured. Person reported agreement to plan: Yes Reports/communication Outcome discussed with: ED/Personnel
--- NOTE | 2024-01-24 13:30 | RT.EKG_ITS ---
APPROVED REPORT Exam: Resting ECG Reason for Exam: Antipsychotics Patient Location: E HR:98 bpm ECG Measurements Heart Rate 98 AXIS OR 130 P 58 QRSd 93 QRS 44 QT 331 T -11 QTc 424 Conclusion Sinus rhythm...normal P axis, V-rate 60- 99 ST elev, probable normal early repol pattern...ST elevation, age<55 ECG showing narrow complex normal sinus rhythm at a rate of 98. Normal axis. Intervals within ana rosa l limits. T wave inversion in lead III. No ST segment abnormalities. T wave flattening in aVF. No acute injury pattern. Compared to prior dated earlier this month no significant changes.
[2024-01-24] MEDS: hydrOXYzine HCL 25 MG TAB PO (13:51)
[2024-01-24] MEDS: Gabapentin 300 MG CAP PO (13:52)
--- NOTE | 2024-01-24 14:12 | CMSP_ITS ---
Date of service: 01/24/24 Time of Service: 14:13 Care Management Safety Plan Status Status: Voluntary Reason for Wait Reason for Wait: Inpatient Admission Safety Plan Safety Plan: VOLUNTARY FOR INPATIENT PSYCHIATRIC STABILIZATION.? Patient is appropriate in all interactions since arriving at [facility]; Pt has demonstrated appropriate coping and communication skills, has articulated his needs and concerns and is fully engaged during staff interactions. Safety plan has been established with patient, and care team, to adhere to patient goals, identify restrictions based on behavioral status, address nutrition, and determine allowed personal belongings, tools for hygiene and personal care. Determine level of activity including ambulation, level of supervision, visitors, and determine privileges based on behaviors and level of engagement by pt. SAFETY PLAN: 1. Will remain on suicide precautions, in paper clothes 2. Will remain in Zone B under direct supervision of one-on-one staff at all times provided by [facility]; JAYDEN, DIE MAKER BENCH STAMPING supervisor salvage. 3. May have paper cups, plates, finger foods as well as a cardboard spoon with which to eat meals. 4. Follow [facility] Management of the Admitted Behavioral Health Patient policy. 5. Shower available in Zone B without restriction. 6. Personal belongings-soft items permitted at RN discretion. 7. Visitors-none at this time. 8. Activities: soft cart items approved per RN discretion. 9.? Bathroom available in Zone B without restriction. 10. Phone: limited to [facility] cordless phone at RN discretion. Due to VOLUNTARY status, if patient wishes to leave [facility], staff will contact [facility] Crisis Screener ([phone]) and Small Piece Cutter ([phone]) as soon as possible. In the event of elopement, notify [facility] Police ([phone]). Patient is currently voluntarily at [facility] and seeking inpatient admission when a bed becomes available. [facility] Frontline Splitting Machine Operator Helper will continue seeking pl acement. Please contact the Small Piece Cutter ([phone]) and [facility] Splitting Machine Operator Helper ([phone]) for any needed changes in the Safety Plan. Safety plan has been provided to interdepartmental care team.
--- NOTE | 2024-01-24 14:12 | PDOC.CMSAFE ---
Date of service: 01/24/24 Time of Service: 14:13 Care Management Safety Plan Status Status: Voluntary Reason for Wait Reason for Wait: Inpatient Admission Safety Plan Safety Plan: VOLUNTARY FOR INPATIENT PSYCHIATRIC STABILIZATION.? Patient is appropriate in all interactions since arriving at [facility]; Pt has demonstrated appropriate coping and communication skills, has articulated his needs and concerns and is fully engaged during staff interactions. Safety plan has been established with patient, and care team, to adhere to patient goals, identify restrictions based on behavioral status, address nutrition, and determine allowed personal belongings, tools for hygiene and personal care. Determine level of activity including ambulation, level of supervision, visitors, and determine privileges based on behaviors and level of engagement by pt. SAFETY PLAN: 1. Will remain on suicide precautions, in paper clothes 2. Will remain in Zone B under direct supervision of one-on-one staff at all times provided by [employer]; JAYDEN, HOOK TENDER campus wellness coordinator. 3. May have paper cups, plates, finger foods as well as a cardboard spoon with which to eat meals. 4. Follow [facility] Management of the Admitted Behavioral Health Patient policy. 5. Shower available in Zone B without restriction. 6. Personal belongings-soft items permitted at RN discretion. 7. Visitors-none at this time. 8. Activities: soft cart items approved per RN discretion. 9.? Bathroom available in Zone B without restriction. 10. Phone: limited to [facility] cordless phone at RN discretion. Due to VOLUNTARY status, if patient wishes to leave [facility], staff will contact [facility] Crisis Screener ([phone]) and Morning News Producer ([phone]) as soon as possible. In the event of elopement, notify [facility] Police ([phone]). Patient is currently voluntarily at [facility] and seeking inpatient admission when a bed becomes available. [facility] Frontline Civil Lawyer will continue seeking placement. Please contact the Morning News Producer ([phone]) and [facility] Civil Lawyer ([phone]) for any needed changes in the Safety Plan. Safety plan has been provided to interdepartmental care team.
[2024-01-24 14:33] LABS: *AMPHETAMINES SCREEN URINE Positive (Negative); *BARBITURATES SCREEN URINE Negative (Negative); *BENZODIAZEPINES SCREEN URINE Negative (Negative); Cannabinoids THC Negative (Negative); Cocaine Screen,Urine Negative (Negative); METHADONE URINE SCREEN Negative (Negative); OPIATES URINE SCREEN Negative (Negative)
[2024-01-24 14:39] LABS: Tricyclic Antidepressants Positive (Negative)
--- NOTE | 2024-01-24 19:22 | ED.PROG_ITS ---
Date of service: 01/24/24 Time of Service: 19:58 Medical Decision Making 43-year-old gentleman with auditory hallucinations and anxiety has been pending voluntary inpatient psychiatric placement. Patient was accepted for placement at [facility], but he refused this. He was also rejected from placement at [facility]. At this time the patient would like to leave the hospital. He is calm, cooperative, and has the capacity to make this decision. His parents are here to pick him up. He was being evaluated by [facility] when he has decided to make this decision. Everyone agrees with this plan for him. Quality:[facility] Health Related Social Needs: No Data to Display Sign Out Sign Out Data: Sign Out Comment: 43-year-old male with acute on chronic auditory hallucinations medically cleared pending placement with [facility]. Home medications ordered. Regular diet on safety tray. Last updated by Diego Redman MD at 01/24/24 16:18 Discharge Plan Disposition Patient Disposition: Home Condition: Stable Discharge Details Clinical Impression: Auditory hallucinations, Malingering Primary Care Provider: Sophia Kelsey ED Provider: Isaac Gresham Home Meds and New Rx's Prescriptions: No Action buprenorphine-naloxone [Suboxone] 8-2 mg film 1 film buccal Q24H Patient Comments: confirmed with [facility] 01/11/24 buprenorphine-naloxone [Suboxone] 12-3 mg film 1 film buccal Q24H Patient Comments: confirmed with [facility] 01/11/24 lisdexamfetamine [Vyvanse] 40 mg capsule 50 mg PO DAILY lisinopril 10 mg tablet 10 mg PO DAILY Qty: 90 3RF triamcinolone acetonide 0.025 % cream 1 applic topical DAILY PRN (Reason: rash) Qty: 15 0RF Rx Instructions: apply 0.25gm to face daily prn seborrhea duloxetine 60 mg capsule,delayed release(DR/EC) 60 mg PO DAILY quetiapine 50 mg tablet 50 mg PO DAILY PRN (Reason: anxiety) quetiapine [Seroquel] 400 mg tablet See Rx Instructions PO BID Rx Instructions: as above. clonidine HCl 0.2 mg tablet 0.2 mg PO Q12H PRN Rx Instructions: Last RX'd by Patricia [place] October 2022 melatonin 3 mg capsule 6 mg PO HS PRN Rx Instructions: Last RX'd by Patricia [place]. gabapentin 300 mg capsule 300 mg PO TID Rx Instructions: Last RX'd by Patricia Morrisoneat on 11/19/2022. -hb testosterone cypionate 200 mg/mL oil 200 mg IM Q2W Qty: 1 5RF naproxen 250 mg tablet 250 - 500 mg PO BID PRNQty: 40 0RF Rx Instructions: take with a meal Discharge Instructions Additional Instructions: at this time you have refused inpatient psychiatric care and now would like to go home. please follow up with your mental health team and return to the emergency department with any concerns
== END 2024-01-24 19:37 | disposition home or self-care (01) ==
PROVIDERS: Emergency Medicine; Emergency Provider Emergency Medicine; PCP Family Medicine
DX: R44.0 Auditory hallucinations (principal); F41.9 Anxiety disorder, unspecified; F17.210 Nicotine dependence, cigarettes, uncomplicated
CPT/HCPCS: 00123; 80307; 93005; 96127; 99284; 93010

== ENCOUNTER 2024-02-07 19:37 | Emergency (ER) | payer MEDICAID, SELFPAY ==
[2024-02-07 20:09] VITALS: BP 118/87; PULSE 103; RESP 16; TEMP 36.2; O2SAT 94
--- NOTE | 2024-02-07 21:02 | W.ED.GENAD ---
Discharge Plan Discharge Details Chief Complaint: PsychEval Primary Care Provider: Sophia Kelsey ED Provider: Diego Redman [place] Meds and New Rx's Prescriptions: No Action buprenorphine-naloxone [Suboxone] 8-2 mg film 1 film buccal Q24H Patient Comments: confirmed with [facility] 01/11/24 buprenorphine-naloxone [Suboxone] 12-3 mg film 1 film buccal Q24H Patient Comments: confirmed with [facility] 01/11/24 lisdexamfetamine [Vyvanse] 40 mg capsule 50 mg PO DAILY Patient Comments: pt states dose is 60mg 02/07/24 lisinopril 10 mg tablet 10 mg PO DAILY Qty: 90 3RF triamcinolone acetonide 0.025 % cream 1 applic topical DAILY PRN (Reason: rash) Qty: 15 0RF Rx Instructions: apply 0.25gm to face daily prn seborrhea duloxetine 60 mg capsule,delayed release(DR/EC) 60 mg PO DAILY quetiapine 50 mg tablet 50 mg PO DAILY PRN (Reason: anxiety) quetiapine [Seroquel] 400 mg tablet See Rx Instructions PO BID Patient Comments: pt states 900mg 02/07/24 Rx Instructions: as above. clonidine HCl 0.2 mg tablet 0.2 mg PO Q12H PRN Rx Instructions: Last RX'd by Doralelydia [place] October 2022 melatonin 3 mg capsule 6 mg PO HS PRN Rx Instructions: [facility] [place]. gabapentin 300 mg capsule 300 mg PO TID Rx Instructions: [facility] [place] on 11/19/2022. -hb testosterone cypionate 200 mg/mL oil 200 mg IM Q2W Qty: 1 5RF naproxen 250 mg tablet 250 - 500 mg PO BID PRNQty: 40 0RF Rx Instructions: take with a meal HPI General Date/Time Provider Initiated Documentation: 02/07/24 20:29. HPI Narrative: This 43-year-old male presents with report of auditory hallucinations with worsening depression. Patient denies any pain complaints. He states he has been taking all of his medications as prescribed. He states he is felt like this previously. He denies any attempts to harm self. Denies any suicidal or homicidal ideation. Denies any illicit substance use. Denies any alcohol use. Denies any visual hallucinations. Related Data Home Medications Medication Instructions Recorded Confirmed clonidine HCl 0.2 mg tablet 0.2 mg PO Q12H PRN 12/04/22 02/07/24 gabapentin 300 mg capsule 300 mg PO TID 12/04/22 02/07/24 melatonin 3 mg capsule 6 mg PO HS PRN 12/04/22 02/07/24 buprenorphine 12 mg-naloxone 3 mg 1 film buccal Q24H 01/03/23 02/07/24 sublingual film (Suboxone) buprenorphine 8 mg-naloxone 2 mg 1 film buccal Q24H 01/03/23 02/07/24 sublingual film (Suboxone) naproxen 250 mg tablet 250 - 500 mg (1 - 2 x 250 mg) PO 03/28/23 02/07/24 BID PRN #40 tabs triamcinolone acetonide 0.025 % 1 applic topical DAILY PRN rash 08/06/23 02/07/24 topical cream #15 grams lisinopril 10 mg tablet 10 mg PO DAILY #90 tabs 11/14/23 02/07/24 testosterone cypionate 200 mg/mL 200 mg IM Q2W #1 mL 11/19/23 02/07/24 intramuscular oil duloxetine 60 mg capsule,delayed 60 mg PO DAILY 01/16/24 02/07/24 release lisdexamfetamine 40 mg capsule 50 mg PO DAILY 01/16/24 02/07/24 (Vyvanse) quetiapine 400 mg tablet (Seroquel) See Rx Instructions PO BID 01/16/24 02/07/24 quetiapine 50 mg tablet 50 mg PO DAILY PRN anxiety 01/16/24 02/07/24 Previous Rx's Medication Instructions Recorded naproxen 250 mg tablet 250 - 500 mg (1 - 2 x 250 mg) PO 03/28/23 BID PRN #40 tabs triamcinolone acetonide 0.025 % 1 applic topical DAILY PRN rash 08/06/23 topical cream #15 grams lisinopril 10 mg tablet 10 mg PO DAILY #90 tabs 11/14/23 testosterone cypionate 200 mg/mL 200 mg IM Q2W #1 mL 11/19/23 intramuscular oil Allergies Allergy/AdvReac Type Severity Reaction Status Date / Time No Known Allergies Allergy Verified 02/07/24 20:14 General Stated Complaint: PsychEval PACO: 2 Course Vital Signs Vital signs: Vital Signs Temperature 36.2 C L 02/07/24 20:09 Pulse 103 H 02/07/24 20:09 Respiratory Rate 16 02/07/24 20:09 Blood Pressure 118/87 02/07/24 20:09 Pulse Oximetry 94 02/07/24 20:09 Temperature 36.2 C L 02/07/24 20:09 Temperature Source Skin 02/07/24 20:09 Pulse 103 H 02/07/24 20:09 Respiratory Rate 16 02/07/24 20:09 Respiratory Effort Normal, Non-Labored 02/07/24 20:14 Blood Pressure 118/87 02/07/24 20:09 Blood Pressure Position Sitting 02/07/24 20:09 Pulse Oximetry 94 02/07/24 20:09 Oxygen Delivery Method Room Air 02/07/24 20:09 Oxygen Flow Rate 0 02/07/24 20:09 Pain Level 0 02/07/24 20:09 Medical Decision Making 43-year-old male, alert, oriented, no acute distress, denies any pain complaints Alert and oriented x 4, cranial nerves II through XII intact, ambulatory with steady gait, PERRLA, no visible evidence of trauma, cardiac RRR, no respiratory distress Afebrile and nontoxic, flat in appearance Patient will be voluntary status, he does not meet criteria for [facility] pending placement at this time I did order labs as patient does have a history of hypertension and is on medications care transitioned at end of shift pending placement, voluntary status Quality:[facility] Health Related Social Needs: No Data to Display PFSH All Active Problems (Updated 02/08/24 @ 00:05 by STEPHANIE RAI) Auditory hallucinations (Acute) Auditory hallucinations (Acute) Anxiety (Chronic) Malingering (Acute) Chronic left shoulder pain (Acute) Hypogonadism, male (Chronic 03/24/18) Prior appt Dr. Charles at [facility] in [place], lost to FU; testosterone gel not effective, IM injections with improved levels Tobacco abuse (Chronic 11/19/17) 1 ppd Major depressive disorder, recurrent, severe with psychotic symptoms (Chronic) H/o Hospitalization at [facility]; psych meds managed through [facility]. Seborrheic dermatitis (Acute) Left ACL tear (Acute) Derangement of medial meniscus of left knee due to old injury (Acute) Medical History Opioid dependence in remission using Suboxone through [facility]. Hypertension Hx of cardiomyopathy Polysubstance abuse QT prolongation Closed right ankle fracture (~09/2019) Alcohol abuse ADD (attention deficit disorder) Surgical History S/P ACL reconstruction (2022) S/P hernia repair Family History Mother Diabetes Cancer thyroid cancer Father Diabetes Essential hypertension Paternal Grandfather No problems noted. Maternal Grandfather Stroke Paternal Uncle Cancer stomach cancer Other Family history of diabetes mellitus (DM) Social History Smoking/Tobacco Use Status: Current every day Tobacco Type: cigarettes Quit status: considering quitting Counseling given: provider counseling Smoking risk assessment performed?: Yes Alcohol Intake: former Year quit: 2021 Counseling given: Yes Drug use: Current Sobriety Substance use type: does not use Counseling provided: treatment program Details: Pt. states its been years since use. 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 Pending voluntary placement Last updated by Win Gleason DO at 02/08/24 06:58 Sign Out Comment: voluntary for depression, hallucinations, no issues during shift Last updated by Torrey Tse MD at 02/08/24 14:44
[2024-02-07 22:23] LABS: Abs Immature Grans 0.02 10^3/uL (0.0-0.06); Absolute Basophil Count 0.04 10^3/uL (0.0-0.2); Absolute Eosinophil Count 0.18 10^3/uL (0.0-0.7); Absolute Lymphocyte Count 3.69 10^3/uL (1.2-3.4); Absolute Monocyte Count 0.83 10^3/uL (0.1-0.8); Absolute Neutrophil Count 3.75 10^3/uL (1.2-6.7); Basophils % 0.5; Eosinophils % 2.1; HCT 47.9 % (40.0-50.0); HGB 16.4 g/dL (13.5-17.5); Immature Grans % 0.2; Lymphocytes % 43.4; MCH 29.9 pg (27.0-33.0); MCHC 34.2 % (32.0-36.0); MCV 87 fL (80-95); Monocytes % 9.8; Platelet Count 226 10^3/uL (130-400); RBC 5.48 10^6/uL (4.36-5.78); RDW 13.8 % (11.8-14.1); RDW-SD 44.6 fL; WBC 8.51 10^3/uL (4.4-10.8)
[2024-02-07 22:34] LABS: *AMPHETAMINES SCREEN URINE Positive (Negative); *BARBITURATES SCREEN URINE Negative (Negative); *BENZODIAZEPINES SCREEN URINE Negative (Negative); Cannabinoids THC Negative (Negative); Cocaine Screen,Urine Negative (Negative); METHADONE URINE SCREEN Negative (Negative); OPIATES URINE SCREEN Negative (Negative)
[2024-02-07 22:35] LABS: Tricyclic Antidepressants Positive (Negative)
[2024-02-07 22:41] LABS: ALT 19 U/L (16-63); AST 16 U/L (15-37); Albumin 3.4 g/dL (3.4-5.0); Alkaline Phosphatase 98 U/L (46-116); Anion Gap 6.4 mmol/L (3-11); BUN 17 mg/dL (7-18); Bilirubin, Total 0.3 mg/dL (0.2-1.0); CO2 28.6 mmol/L (21.0-32.0); CREATININE 0.9 mg/dL (0.70-1.30); Calcium 8.6 mg/dL (8.5-10.1); Chloride 104 mmol/L (98-107); Estimated GFR 108.68 (mL/min/1.73m2); Glucose 131 mg/dL (74-106); Potassium 4.1 mmol/L (3.5-5.1); Sodium 139 mmol/L (136-145); Total Protein 6.8 g/dL (6.4-8.2)
[2024-02-08] MEDS: LORazepam 1 MG TAB 2 MG PO (05:08)
--- NOTE | 2024-02-08 06:43 | W.EDPROG ---
Date of service: 02/08/24 Time of Service: 06:43 Medical Decision Making Patient stable throughout the night. Patient did request something for anxiety and was given 2 mg of Ativan orally. No interventions otherwise were needed. Quality:[facility] Health Related Social Needs: No Data to Display Sign Out Sign Out Data: Sign Out Comment: pending placement depression, auditory hallucinations, neg SI/HI, voluntary Last updated by Jaz Rondon PA at 02/07/24 23:04 Discharge Plan Discharge Details Chief Complaint: PsychEval Primary Care Provider: Sophia Kelsey ED Provider: Win Gleason Home Meds and New Rx's Prescriptions: No Action buprenorphine-naloxone [Suboxone] 8-2 mg film 1 film buccal Q24H Patient Comments: confirmed with [facility] 01/11/24 buprenorphine-naloxone [Suboxone] 12-3 mg film 1 film buccal Q24H Patient Comments: confirmed with [facility] 01/11/24 lisdexamfetamine [Vyvanse] 40 mg capsule 50 mg PO DAILY Patient Comments: pt states dose is 60mg 02/07/24 lisinopril 10 mg tablet 10 mg PO DAILY Qty: 90 3RF triamcinolone acetonide 0.025 % cream 1 applic topical DAILY PRN (Reason: rash) Qty: 15 0RF Rx Instructions: apply 0.25gm to face daily prn seborrhea duloxetine 60 mg capsule,delayed release(DR/EC) 60 mg PO DAILY quetiapine 50 mg tablet 50 mg PO DAILY PRN (Reason: anxiety) quetiapine [Seroquel] 400 mg tablet See Rx Instructions PO BID Patient Comments: pt states 900mg 02/07/24 Rx Instructions: as above. clonidine HCl 0.2 mg tablet 0.2 mg PO Q12H PRN Rx Instructions: Last RX'd by Patricia [place] October 2022 melatonin 3 mg capsule 6 mg PO HS PRN Rx Instructions: Last RX'd by Patricia [place]. gabapentin 300 mg capsule 300 mg PO TID Rx Instructions: Last RX'd by Patricia [place] on 11/19/2022. -hb testosterone cypionate 200 mg/mL oil 200 mg IM Q2W Qty: 1 5RF naproxen 250 mg tablet 250 - 500 mg PO BID PRNQty: 40 0RF Rx Instructions: take with a meal
--- NOTE | 2024-02-08 07:05 | W.EDPROG ---
Date of service: 02/08/24 Time of Service: 07:07 Medical Decision Making Patient here voluntarily for hallucinations and depression, no reported issues in previous shift and currently calm and cooperative without acute complaints. Will continue to monitor until safe disposition found Quality:SDOH Health Related Social Needs: No Data to Display Sign Out Sign Out Data: Sign Out Comment: pending placement depression, auditory hallucinations, neg SI/HI, voluntary Last updated by Jaz Rondon PA at 02/07/24 23:04 Sign Out Comment: No interventions throughout the night. Pending voluntary placement Last updated by Win Gleason DO at 02/08/24 06:58 Discharge Plan Discharge Details Chief Complaint: PsychEval Primary Care Provider: Sophia Kelsey ED Provider: Torrey Tse Josephine Meds and New Rx's Prescriptions: No Action buprenorphine-naloxone [Suboxone] 8-2 mg film 1 film buccal Q24H Patient Comments: confirmed with [facility] 01/11/24 buprenorphine-naloxone [Suboxone] 12-3 mg film 1 film buccal Q24H Patient Comments: confirmed with [facility] 01/11/24 lisdexamfetamine [Vyvanse] 40 mg capsule 50 mg PO DAILY Patient Comments: pt states dose is 60mg 02/07/24 lisinopril 10 mg tablet 10 mg PO DAILY Qty: 90 3RF triamcinolone acetonide 0.025 % cream 1 applic topical DAILY PRN (Reason: rash) Qty: 15 0RF Rx Instructions: apply 0.25gm to face daily prn seborrhea duloxetine 60 mg capsule,delayed release(DR/EC) 60 mg PO DAILY quetiapine 50 mg tablet 50 mg PO DAILY PRN (Reason: anxiety) quetiapine [Seroquel] 400 mg tablet See Rx Instructions PO BID Patient Comments: pt states 900mg 02/07/24 Rx Instructions: as above. clonidine HCl 0.2 mg tablet 0.2 mg PO Q12H PRN Rx Instructions: Last RX'd by Patricia [place] October 2022 melatonin 3 mg capsule 6 mg PO HS PRN Rx Instructions: Last RX'd by Patricia [place]. gabapentin 300 mg capsule 300 mg PO TID Rx Instructions: Last RX'd by Patricia [place] on 11/19/2022. -hb testosterone cypionate 200 mg/mL oil 200 mg IM Q2W Qty: 1 5RF naproxen 250 mg tablet 250 - 500 mg PO BID PRNQty: 40 0RF Rx Instructions: take with a meal
[2024-02-08 08:38] VITALS: BP 139/86; PULSE 101; RESP 18; TEMP 36.1; O2SAT 97
[2024-02-08] MEDS: QUEtiapine 300 MG TAB 900 MG PO (08:40)
[2024-02-08] MEDS: Gabapentin 300 MG CAP PO ×3 (08:40→20:22)
[2024-02-08] MEDS: Buprenorphine/Naloxone 8 mg/2 mg FILM 1 EACH SL (08:41)
[2024-02-08] MEDS: Lisinopril 10 MG TAB PO (08:41)
[2024-02-08] MEDS: Buprenorphine/Naloxone 12 mg/3 mg FILM 1 EACH SL (08:41)
[2024-02-08] MEDS: cloNIDine 0.1 MG TAB 0.2 MG PO ×2 (08:50→12:04)
--- NOTE | 2024-02-08 09:20 | NUR.NOTE ---
When giving morning meds, pt states that he takes effexor not duloxetine. Looked in patient's records which showed he was on effexor in Oct, but in Dec [facility] changed it to duloxetine (and increased it to 60 mg qd). Advised patient of this and he declines to take it. Also given vyvanse 50 mg. Patient stated he is supposed to be on 60 [address] [facility] decreased it to 50 mg in December. Information to be relayed to [facility].
[2024-02-08] MEDS: Nicotine 21 MG/24 HR PATCH TD (09:41)
[2024-02-08 12:35] VITALS: BP 104/65; PULSE 128; RESP 14; TEMP 37.2; O2SAT 94
--- NOTE | 2024-02-08 15:49 | W.EDPROG ---
Date of service: 02/08/24 Time of Service: 15:49 Medical Decision Making I received signout on this 43-year-old patient in the emergency department voluntarily in the setting of hallucinations. No active behavioral issues last shift. Will update documentation as clinically warranted and signed patient out to the oncoming overnight provider. 4:30 PM Patient requested something for anxiety for which I gave him 25 mg of hydroxyzine. 6:25 PM Patient reported taking 300 mg of quetiapine twice daily. There are some discrepancies in the EMR concerning his dose. Given that his pharmacy cannot be contacted and he reports only taking 300 mg of quetiapine daily will hold his night dose of quetiapine and call the pharmacy for a med reconciliation in the morning tomorrow. 8:38 PM Patient became agitated. I ordered him 10 mg of hydroxyzine 3 times daily as needed. 10:27 PM Patient signed out to the oncoming provider. Quality:SDOH Health Related Social Needs: No Data to Display Sign Out Sign Out Data: Sign Out Comment: pending placement depression, auditory hallucinations, neg SI/HI, voluntary Last updated by Jaz Rondon PA at 02/07/24 23:04 Sign Out Comment: No interventions throughout the night. Pending voluntary placement Last updated by Win Gleason DO at 02/08/24 06:58 Sign Out Comment: voluntary for depression, hallucinations, no issues during shift Last updated by Torrey Tse MD at 02/08/24 14:44 Discharge Plan Discharge Details Chief Complaint: PsychEval Primary Care Provider: Sophia Kelsey ED Provider: Diego Redman Home Meds and New Rx's Prescriptions: No Action buprenorphine-naloxone [Suboxone] 8-2 mg film 1 film buccal Q24H Patient Comments: confirmed with [facility] 01/11/24 buprenorphine-naloxone [Suboxone] 12-3 mg film 1 film buccal Q24H Patient Comments: confirmed with [facility] 01/11/24 lisdexamfetamine [Vyvanse] 40 mg capsule 50 mg PO DAILY Patient Comments: pt states dose is 60mg 02/07/24 lisinopril 10 mg tablet 10 mg PO DAILY Qty: 90 3RF triamcinolone acetonide 0.025 % cream 1 applic topical DAILY PRN (Reason: rash) Qty: 15 0RF Rx Instructions: apply 0.25gm to face daily prn seborrhea duloxetine 60 mg capsule,delayed release(DR/EC) 60 mg PO DAILY quetiapine 50 mg tablet 50 mg PO DAILY PRN (Reason: anxiety) quetiapine [Seroquel] 400 mg tablet See Rx Instructions PO BID Patient Comments: pt states 900mg 02/07/24 Rx Instructions: as above. clonidine HCl 0.2 mg tablet 0.2 mg PO Q12H PRN Rx Instructions: Last RX'd by Patricia [place] October 2022 melatonin 3 mg capsule 6 mg PO HS PRN Rx Instructions: Last RX'd by Ptaricia [place]. gabapentin 300 mg capsule 300 mg PO TID Rx Instructions: Last RX'd by Patricia [place] on 11/19/2022. -hb testosterone cypionate 200 mg/mL oil 200 mg IM Q2W Qty: 1 5RF naproxen 250 mg tablet 250 - 500 mg PO BID PRNQty: 40 0RF Rx Instructions: take with a meal
[2024-02-08] MEDS: hydrOXYzine HCL 25 MG TAB PO (16:35)
--- NOTE | 2024-02-08 18:04 | CMSP_ITS ---
Date of service: 02/08/24 Time of Service: 18:05 Care Management Safety Plan Status Status: Voluntary Reason for Wait Reason for Wait: Inpatient Admission Safety Plan Safety Plan: VOLUNTARY FOR INPATIENT PSYCHIATRIC STABILIZATION.? Patient is appropriate in all interactions since arriving at [facility]; Pt has demonstrated appropriate coping and communication skills, has articulated his needs and concerns and is fully engaged during staff interactions. Safety plan has been established with patient, and care team, to adhere to patient goals, identify restrictions based on behavioral status, address nutrition, and determine allowed personal belongings, tools for hygiene and personal care. Determine level of activity including ambulation, level of supervision, visitors, and determine privileges based on behaviors and level of engagement by pt. SAFETY PLAN: 1. Will remain on suicide precautions, in paper clothes 2. Will remain in Zone B under direct supervision of one-on-one staff at all times provided by [employer]; JAYDEN, CLIENT ANALYST brine mixer operator. 3. May have paper cups, plates, finger foods as well as a cardboard spoon with which to eat meals. 4. Follow [facility] Management of the Admitted Behavioral Health Patient policy. 5. Shower available in Zone B without restriction. 6. Personal belongings-soft items permitted at RN discretion. 7. Visitors-none at this time. 8. Activities: soft cart items approved per RN discretion. 9.? Bathroom available in Zone B without restriction. 10. Phone: limited to [facility] cordless phone at RN discretion. Due to VOLUNTARY status, if patient wishes to leave [facility], staff will contact [facility] Crisis Screener ([phone]) and Facility Examiner ([phone]) as soon as possible. In the event of elopement, notify [facility] Police ([phone]). Patient is currently voluntarily at [facility] and seeking inpatient admission when a bed becomes available. [facility] Frontline Mds Manager will continue seeking placement. Please contact the Facility Examiner ([phone]) and [facility] Mds Manager ([phone]) for any needed changes in the Safety Plan. Safety plan has been provided to interdepartmental care team.
--- NOTE | 2024-02-08 18:04 | PDOC.CMSAFE ---
Date of service: 02/08/24 Time of Service: 18:05 Care Management Safety Plan Status Status: Voluntary Reason for Wait Reason for Wait: Inpatient Admission Safety Plan Safety Plan: VOLUNTARY FOR INPATIENT PSYCHIATRIC STABILIZATION.? Patient is appropriate in all interactions since arriving at [facility]; Pt has demonstrated appropriate coping and communication skills, has articulated his needs and concerns and is fully engaged during staff interactions. Safety plan has been established with patient, and care team, to adhere to patient goals, identify restrictions based on behavioral status, address nutrition, and determine allowed personal belongings, tools for hygiene and personal care. Determine level of activity including ambulation, level of supervision, visitors, and determine privileges based on behaviors and level of engagement by pt. SAFETY PLAN: 1. Will remain on suicide precautions, in paper clothes 2. Will remain in Zone B under direct supervision of one-on-one staff at all times provided by [employer]; JAYDEN, METAL FLOW COORDINATOR oil spraying machine operator. 3. May have paper cups, plates, finger foods as well as a cardboard spoon with which to eat meals. 4. Follow [facility] Management of the Admitted Behavioral Health Patient policy. 5. Shower available in Zone B without restriction. 6. Personal belongings-soft items permitted at RN discretion. 7. Visitors-none at this time. 8. Activities: soft cart items approved per RN discretion. 9.? Bathroom available in Zone B without restriction. 10. Phone: limited to [facility] cordless phone at RN discretion. Due to VOLUNTARY status, if patient wishes to leave [facility], staff will contact [facility] Crisis Screener ([phone]) and Park Guide ([phone]) as soon as possible. In the event of elopement, notify [facility] Police ([phone]). Patient is currently voluntarily at [facility] and seeking inpatient admission when a bed becomes available. [facility] Frontline Water Manager will continue seeking placement. Please contact the Park Guide ([phone]) and [facility] Water Manager ([phone]) for any needed changes in the Safety Plan. Safety plan has been provided to interdepartmental care team.
--- NOTE | 2024-02-08 18:05 | PDOC.CMPRO ---
Date of service: 02/08/24 Time of Service: 18:05 Care Management Progress Note Progress Note Text Progress Note Text: GLORIA huddled with staff to discuss Dangelo's plan of care. Per staff, Dangelo has been calm and cooperative. He is not currently expressing any SI/HI, although he reports hallucinations and depression. MAULIK Jimenez, met with Dangelo and completed his assessment. Barbara stated that his PCP has begun to decrease his vivance, which was a barrier to his admission to inpatient treatment previously. Barbara reports that this information will be provided to the facilities, with the expectation that his admission will be reconsidered, as he is appropriately asking for help, and is engaging with his PCP to manage his medications. Voluntary safety plan in place. No beds available today, per MAULIK Jimenez.
[2024-02-08] MEDS: Melatonin 3 MG TAB 6 MG PO (20:22)
[2024-02-08] MEDS: hydrOXYzine HCL 10 MG TAB PO (20:57)
--- NOTE | 2024-02-08 23:38 | W.EDPROG ---
Date of service: 02/08/24 Time of Service: 23:38 Medical Decision Making This patient was signed out to me. Please see previous notes for H&P and initial eval. In brief, 43yo M presenting voluntary with depression. Not thought to meet involuntary criteria. Medically cleared, home meds in (will need to verified in the morning) pending voluntary placement. Overnight appeared to be sleeping comfortably; did not wake for assessment. Signed out to oncoming physician, plan remains as above. Quality:SDOH Health Related Social Needs: No Data to Display Sign Out Sign Out Data: Sign Out Comment: pending placement depression, auditory hallucinations, neg SI/HI, voluntary Last updated by Jaz Rondon PA at 02/07/24 23:04 Sign Out Comment: No interventions throughout the night. Pending voluntary placement Last updated by Win Gleason DO at 02/08/24 06:58 Sign Out Comment: voluntary for depression, hallucinations, no issues during shift Last updated by Torrey Tse MD at 02/08/24 14:44 Sign Out Comment: Voluntary for depression. No active behavioral issues. Please avoid benzodiazepines as much as possible. Last updated by Diego Redman MD at 02/08/24 22:28 Discharge Plan Discharge Details Chief Complaint: PsychEval Primary Care Provider: Sophia Kelsey ED Provider: Cathy Thorpe Home Meds and New Rx's Prescriptions: No Action buprenorphine-naloxone [Suboxone] 8-2 mg film 1 film buccal Q24H Patient Comments: confirmed with [facility] 01/11/24 buprenorphine-naloxone [Suboxone] 12-3 mg film 1 film buccal Q24H Patient Comments: confirmed with [facility] 01/11/24 lisdexamfetamine [Vyvanse] 40 mg capsule 50 mg PO DAILY Patient Comments: pt states dose is 60mg 02/07/24 lisinopril 10 mg tablet 10 mg PO DAILY Qty: 90 3RF triamcinolone acetonide 0.025 % cream 1 applic topical DAILY PRN (Reason: rash) Qty: 15 0RF Rx Instructions: apply 0.25gm to face daily prn seborrhea duloxetine 60 mg capsule,delayed release(DR/EC) 60 mg PO DAILY quetiapine 50 mg tablet 50 mg PO DAILY PRN (Reason: anxiety) quetiapine [Seroquel] 400 mg tablet See Rx Instructions PO BID Patient Comments: pt states 900mg 02/07/24 Rx Instructions: as above. clonidine HCl 0.2 mg tablet 0.2 mg PO Q12H PRN Rx Instructions: Last RX'd by Patricia [place] October 2022 melatonin 3 mg capsule 6 mg PO HS PRN Rx Instructions: Last RX'd by Patricia [place]. gabapentin 300 mg capsule 300 mg PO TID Rx Instructions: Last RX'd by Patricia [place] on 11/19/2022. -hb testosterone cypionate 200 mg/mL oil 200 mg IM Q2W Qty: 1 5RF naproxen 250 mg tablet 250 - 500 mg PO BID PRNQty: 40 0RF Rx Instructions: take with a meal
[2024-02-09] MEDS: Gabapentin 300 MG CAP PO ×3 (07:03→20:45)
[2024-02-09] MEDS: Buprenorphine/Naloxone 8 mg/2 mg FILM 1 EACH SL (07:03)
[2024-02-09] MEDS: Lisinopril 10 MG TAB PO (07:03)
[2024-02-09] MEDS: Buprenorphine/Naloxone 12 mg/3 mg FILM 1 EACH SL (07:04)
[2024-02-09] MEDS: QUEtiapine 300 MG TAB PO (07:07)
[2024-02-09] MEDS: cloNIDine 0.1 MG TAB 0.2 MG PO ×2 (07:51→14:07)
--- NOTE | 2024-02-09 08:47 | PDOC.MHCN_ITS ---
Date of service: 02/07/24 Time of Service: 08:47 Mental Health Emergency Note Release [facility] release signed:: Yes Reason for Visit The client is well known to [facility] [employer] [facility] program. He was last seen on 02.06.24 by his team and is compliant with his appointments. He has attempted to be hospitalized numerous times in the last 1-1.5 months for symptoms of AH, anxiety and depression however, after waiting for too long for a bed his anxiety becomes overwhelming and he has to leave. The client presented voluntarily for the same symptoms on 02.07.24. In the last 2 weeks has the pt presented for ES prior to today?: Unknown Client Information Client is: [facility] Well Housed: Yes Non Suicidal Self Injury Current: No History: No Safety Risk/Harm to Self or Others Current Ideation to Harm Self or Others: No Risk: Does risk to harm exist?: No Risk: Low Risk Duty to warn indicated: No Asssessment/Mental Status Appearance: Disheveled Attitude: Cooperative Behavior: Agitated Speech: Normal and Loud Affect: Flat Mood: Depressed and Anxious Thought process: Goal directed Hallucinations: yes, Auditory Delusions: No Attention: Wandering Orientation: Fully orientated Memory: Intact Insight: Good Judgement: Good Neurovegetative Symptoms Sleep: Increase Appetitie: Decrease Interests: Decrease Energy: Decrease Libido: Not applicable Substance Use: Do you use nicotine?: Yes Have you used substances in the last 7 days?: No Additional Issues: Assaultive/Threatening Behavior: No Medical Concerns: No Client engaged in active self harm w/weapon: No Threatening to run away: No Child reported abuse/neglect: No Voluntarily presenting for services: Yes Domestic violence is a concern: No Extreme Psychosis or extreme behavior is present: Yes Impression The client is a 43 year old, single, male who receives services through the [facility] program with [facility]. He lives with his parents in [facility]. The client denied SI and HI today but by hx has had SI with plan and intent and done self harming things (cutting, jumping into river when he cannot swim). He could not attend to any screening tools today due to his level of hallucinations. All underrepresented categories were honored in this assessment. He was last hospitalized per his report last spring at . Per this clinician's observations of significant AH's although not as severe this time as evidenced by ability to converse more without disruptions. Per an ES assessment done by ES clinician Balta on 05.17.22 client reports that he drinks 1/2 gallon of vodka in a 24 hour period. Client has not drank since 05/15/22. He denied substance use even though on 01.07.24 he disclosed to his service providers Denise he was actively using ETOH daily. He did not appear to under the influence when assessed on 01.08.24 or 01.10.24. Today's assessment is completed via [facility] while the client was in the ED. He is respectful and polite. He makes fair eye contact. The client is observed speaking at times very loudly to his AH but when addressing this clinician he talks with a normal tone and is apologetic for the interruptions. The client stated that he wants to feel better and is wanting to voluntarily go to [facility] as this is the place he felt he was able to get better. Plan/Disposition Recommended Disposition: Hospitalization facilities contacted. Plan: The client will remain at [facility] pending acceptance to a psychiatric facility. He will be reassessed daily by [facility]. Person reported agreement to plan: Yes Facilities contacted if Applicable [facility] Not accepted, No bed available [facility] Not accepted, No bed available [facility], No bed available Reports/communication Outcome discussed with: ED/Personnel
[2024-02-09 09:16] VITALS: BP 125/75; PULSE 114; RESP 17; TEMP 36.1; O2SAT 94
[2024-02-09] MEDS: QUEtiapine 100 MG TAB 300 MG PO (09:24)
[2024-02-09] MEDS: hydrOXYzine HCL 10 MG TAB PO ×3 (11:29→20:46)
--- NOTE | 2024-02-09 14:01 | PDOC.CMPRO ---
Date of service: 02/09/24 Time of Service: 14:02 Care Management Progress Note Progress Note Text Progress Note Text: GLORIA huddled with staff regarding Dangelo's plan of care. Manuel [facility], stated that Dangelo remains voluntary for inpatient psychiatric care, although he is resistant to going to [facility]. Manuel CASTRO and the provider discussed Dangelo being on voluntary status, therefore he has the ability to decline a bed offer. He does not meet involuntary criteria at this time. If he does decline a bed offer for psychiatric treatment, a safety plan will be considered, as well as other facilities. Later, Juani [facility], stated that [facility] is reviewing his referral for possible admission. GLORIA will continue to follow.
[2024-02-09] MEDS: sulfaSALAzine 500 MG TAB 1000 MG PO ×2 (14:08→22:00)
--- NOTE | 2024-02-09 14:25 | NUR.NOTE ---
Nursing Note: pt requested prn meds for anxiety. Explained that if he took the prn clonidine now he would not be able to take any later, and he expressed understanding of this. Continues to request additional PRNs, and was reassured that provider is aware however no further medication changes have been made at this time.
--- NOTE | 2024-02-09 16:03 | W.EDPROG ---
Date of service: 02/09/24 Time of Service: 16:03 Medical Decision Making Patient signed out to me by my colleague, please refer to his HPI, physical exam, assessment and plan. [facility] he will continue to remain here waiting for placement opportunity. Quality:SDOH Health Related Social Needs: No Data to Display Sign Out Sign Out Data: Sign Out Comment: pending placement depression, auditory hallucinations, neg SI/HI, voluntary Last updated by Jaz Rondon PA at 02/07/24 23:04 Sign Out Comment: No interventions throughout the night. Pending voluntary placement Last updated by Win Gleason DO at 02/08/24 06:58 Sign Out Comment: voluntary for depression, hallucinations, no issues during shift Last updated by Torrey Tse MD at 02/08/24 14:44 Sign Out Comment: Voluntary for depression. No active behavioral issues. Please avoid benzodiazepines as much as possible. Last updated by Diego Redman MD at 02/08/24 22:28 Sign Out Comment: 43yo M presenting voluntary with depression. Not thought to meet involuntary criteria. Medically cleared, home meds in (will need to verified in the morning). Avoiding benzos. No behavioral issues overnight. Last updated by Cathy Thorpe MD at 02/09/24 06:34 Discharge Plan Discharge Details Chief Complaint: PsychEval Primary Care Provider: Sophia Kelsey ED Provider: Win Gleason Home Meds and New Rx's Prescriptions: No Action buprenorphine-naloxone [Suboxone] 8-2 mg film 1 film buccal Q24H Patient Comments: confirmed with [facility] 01/11/24 buprenorphine-naloxone [Suboxone] 12-3 mg film 1 film buccal Q24H Patient Comments: confirmed with [facility] 01/11/24 lisdexamfetamine [Vyvanse] 40 mg capsule 60 mg PO DAILY Patient Comments: pt states dose is 60mg 02/07/24 lisinopril 10 mg tablet 10 mg PO DAILY Qty: 90 3RF triamcinolone acetonide 0.025 % cream 1 applic topical DAILY PRN (Reason: rash) Qty: 15 0RF Rx Instructions: apply 0.25gm to face daily prn seborrhea duloxetine 60 mg capsule,delayed release(DR/EC) 60 mg PO DAILY Patient Comments: Not taking- confirmed by pharmacy 02/09/24 CT quetiapine 50 mg tablet 50 mg PO DAILY PRN (Reason: anxiety) Patient Comments: New ordered entered with appropriate directions per pt pharmacy 02/09/24 CT quetiapine [Seroquel] 400 mg tablet See Rx Instructions PO BID Patient Comments: New order entered with appropriate directions per pt pharmacy 02/09/24 CT Rx Instructions: as above. clonidine HCl 0.2 mg tablet 0.2 mg PO DAILY PRN Rx Instructions: Last RX'd by Patricia [place] October 2022 melatonin 3 mg capsule 6 mg PO HS PRN Rx Instructions: Last RX'd by [place] Dewy Rose. gabapentin 300 mg capsule 300 mg PO TID Rx Instructions: Last RX'd by [place] Dewy Rose on 11/19/2022. -hb testosterone cypionate 200 mg/mL oil 200 mg IM Q2W Qty: 1 5RF naproxen 250 mg tablet 250 - 500 mg PO BID PRNQty: 40 0RF Rx Instructions: take with a meal quetiapine [Seroquel XR] 300 mg tablet extended release 24 hr 300 mg PO DAILY quetiapine [Seroquel XR] 300 mg tablet extended release 24 hr 600 mg PO QHS venlafaxine 225 mg tablet extended release 24hr 225 mg PO DAILY sulfasalazine 500 mg tablet 1 g PO BID Rx Instructions: give with food (meal/snack)
--- NOTE | 2024-02-09 16:04 | PDOC.MHPN2 ---
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 He was last seen on 02.06.24 by his team and is compliant with his appointments. He has attempted to be hospitalized numerous times in the last 1-1.5 months for symptoms of AH, anxiety and depression however, after waiting for too long for a bed his anxiety becomes overwhelming and he has to leave. The client presented voluntarily for the same symptoms on 02.07.24. This assessment is completed face to face at bedside. In the last 2 weeks has the pt presented for ES prior to today?: Unknown Impression The client is a 43 year old, single, male who receives services through the [facility] [facility]IOR MANAGER program with [facility]. He lives with his parents in [facility]. The client denied SI and HI today but by hx has had SI with plan and intent and done self harming things (cutting, jumping into river when he cannot swim). He could not attend to any screening tools today due to his level of hallucinations. All underrepresented categories were honored in this assessment. He was last hospitalized per his report last spring at . Per this clinician's observations of significant AH's although not as severe this time as evidenced by ability to converse more without disruptions. Per an ES assessment done by ES clinician Balat on 05.17.22 client reports that he drinks 1/2 gallon of vodka in a 24 hour period. Client has not drank since 05/15/22. He denied substance use even though on 01.07.24 he disclosed to his service providers Denise he was actively using ETOH daily. He did not appear to under the influence when assessed on 01.08.24 or 01.10.24. Upon entry to the client's room he was lying on his back, mouth open and appeared to be sleeping. This clinician called his name numerous times without response and so touched his leg and shock hi trying to wake him. He still did not respond. This clinician raised her voice calling with a high pitch voice his name while shaking his leg more aggressively with still not response. This clinician watched for his chest to kerry and fall to ensure he was breathing and also was looking at his face which appeared to by a adamson color and his chest did not appear to be rising and falling at a normal rate. This clinician quickly went to the nursing station and requested assistance noting what this clinician was observing. The nurse came in and was calling to the client as well and began to shake his chest and give him what appeared to be a sternum rub. This lasted several seconds and eventually he did awake and appeared confused. The client did not sit up but did engage minimally in comparison to his last assessments appearing very sedated and tired. He had not had any medications, per nursing outside of his usual prescriptions. The client reported that he did sleep last night, is eating well and is still experiencing AH. He recalled hearing from his therapist this am. The client continues to deny SI, HI and NSSI and is still seeking voluntary admission. Plan/Disposition Recommended Disposition: Hospitalization facilities contacted. Plan: The client will remain at [facility] pending acceptance. He will be evaluated daily by [facility]. Person reported agreement to plan: Yes Facilities contacted if Applicable [facility] Not accepted, No bed available [facility] Not accepted, No bed available [facility], [facility] available Reports/communication Outcome discussed with: ED/Personnel
--- NOTE | 2024-02-09 17:00 | PDOC.CMSAFE ---
Date of service: 02/09/24 Time of Service: 17:00 Care Management Safety Plan Status Status: Voluntary Reason for Wait Reason for Wait: Inpatient Admission Safety Plan Safety Plan: VOLUNTARY FOR INPATIENT PSYCHIATRIC STABILIZATION.? Patient is appropriate in all interactions since arriving at [facility]; Pt has demonstrated appropriate coping and communication skills, has articulated his needs and concerns and is fully engaged during staff interactions. Safety plan has been established with patient, and care team, to adhere to patient goals, identify restrictions based on behavioral status, address nutrition, and determine allowed personal belongings, tools for hygiene and personal care. Determine level of activity including ambulation, level of supervision, visitors, and determine privileges based on behaviors and level of engagement by pt. SAFETY PLAN: 1. Will remain on suicide precautions, in paper clothes 2. Will remain in Zone B under direct supervision of one-on-one staff at all times provided by [employer]; JAYDEN, CONTROLS DESIGNER regulatory affairs director. 3. May have paper cups, plates, finger foods as well as a cardboard spoon with which to eat meals. 4. Follow [facility] Management of the Admitted Behavioral Health Patient policy. 5. Shower available in Zone B without restriction. 6. Personal belongings-soft items permitted at RN discretion. 7. Visitors- at RN discretion. 8. Activities: soft cart items approved per RN discretion. 9.? Bathroom available in Zone B without restriction. 10. Phone: limited to [facility] cordless phone at RN discretion. Due to VOLUNTARY status, if patient wishes to leave [facility], staff will contact [facility] Crisis Screener ([phone]) and Building Insulation Installer ([phone]) as soon as possible. In the event of elopement, notify [facility] Police ([phone]). Patient is currently voluntarily at [facility] and seeking inpatient admission when a bed becomes available. [facility] Frontline Character Actor will continue seeking placement. Please contact the Building Insulation Installer ([phone]) and [facility] Character Actor ([phone]) for any needed changes in the Safety Plan. Safety plan has been provided to interdepartmental care team.
--- NOTE | 2024-02-09 17:13 | ED.PROG_ITS ---
Date of service: 02/09/24 Time of Service: 17:13 Medical Decision Making Patient still seeking voluntary placement, reportedly declined to go to [facility], no new acute complaints currently will continue to monitor until safe disposition found. Quality:[facility] Health Related Social Needs: No Data to Display Sign Out Sign Out Data: Sign Out Comment: pending placement depression, auditory hallucinations, neg SI/HI, voluntary Last updated by Jaz Rondon PA at 02/07/24 23:04 Sign Out Comment: No interventions throughout the night. Pending voluntary placement Last updated by Win Gleason DO at 02/08/24 06:58 Sign Out Comment: voluntary for depression, hallucinations, no issues during shift Last updated by Torrey Tse MD at 02/08/24 14:44 Sign Out Comment: Voluntary for depression. No active behavioral issues. Please avoid benzodiazepines as much as possible. Last updated by Diego Redman MD at 02/08/24 22:28 Sign Out Comment: 43yo M presenting voluntary with depression. Not thought to meet involuntary criteria. Medically cleared, home meds in (will need to verified in the morning). Avoiding benzos. No behavioral issues overnight. Last updated by Cathy Thorpe MD at 02/09/24 06:34 Sign Out Comment: Patient here voluntarily, refused transfer [facility]. Voluntary for depression hallucinations. Last updated by Win Gleason DO at 02/09/24 17:00 Discharge Plan Discharge Details Chief Complaint: PsychEval Primary Care Provider: Sophia Kelsey ED Provider: Torrey Tse Home Meds and New Rx's Prescriptions: No Action buprenorphine-naloxone [Suboxone] 8-2 mg film 1 film buccal Q24H Patient Comments: confirmed with [facility] 01/11/24 buprenorphine-naloxone [Suboxone] 12-3 mg film 1 film buccal Q24H Patient Comments: confirmed with [facility] 01/11/24 lisdexamfetamine [Vyvanse] 40 mg capsule 60 mg PO DAILY Patient Comments: pt states dose is 60mg 02/07/24 lisinopril 10 mg tablet 10 mg PO DAILY Qty: 90 3RF triamcinolone acetonide 0.025 % cream 1 applic topical DAILY PRN (Reason: rash) Qty: 15 0RF Rx Instructions: apply 0.25gm to face daily prn seborrhea duloxetine 60 mg capsule,delayed release(DR/EC) 60 mg PO DAILY Patient Comments: Not taking- confirmed by pharmacy 02/09/24 CT quetiapine 50 mg tablet 50 mg PO DAILY PRN (Reason: anxiety) Patient Comments: New ordered entered with appropriate directions per pt pharmacy 02/09/24 CT quetiapine [Seroquel] 400 mg tablet See Rx Instructions PO BID Patient Comments: New order entered with appropriate directions per pt pharmacy 02/09/24 CT Rx Instructions: as above. clonidine HCl 0.2 mg tablet 0.2 mg PO DAILY PRN Rx Instructions: Last RX'd by [facility] October 2022 melatonin 3 mg capsule 6 mg PO HS PRN Rx Instructions: Last RX'd by [facility]. gabapentin 300 mg capsule 300 mg PO TID Rx Instructions: Last RX'd by [facility] on 11/19/2022. -hb testosterone cypionate 200 mg/mL oil 200 mg IM Q2W Qty: 1 5RF naproxen 250 mg tablet 250 - 500 mg PO BID PRNQty: 40 0RF Rx Instructions: take with a meal quetiapine [Seroquel XR] 300 mg tablet extended release 24 hr 300 mg PO DAILY quetiapine [Seroquel XR] 300 mg tablet extended release 24 hr 600 mg PO QHS venlafaxine 225 mg tablet extended release 24hr 225 mg PO DAILY sulfasalazine 500 mg tablet 1 g PO BID Rx Instructions: give with food (meal/snack)
[2024-02-09] MEDS: Melatonin 3 MG TAB 6 MG PO (20:46)
--- NOTE | 2024-02-09 22:05 | W.EDPROG ---
Date of service: 02/09/24 Time of Service: 22:05 Medical Decision Making This patient was signed out to me. Please see previous notes for H&P and initial eval. In brief, 43yo M presenting with anxiety/depression, hearing voices. Voluntary, not thought to meet EE criteria. Was offered placement at [facility] which he declined. Remains in the ED awaiting placement. Overnight appeared to be sleeping. Did not wake for assessment. No acute behavioral events. Signed out to oncoming physician; plan remains as above. Quality:[facility] Health Related Social Needs: No Data to Display Sign Out Sign Out Data: Sign Out Comment: pending placement depression, auditory hallucinations, neg SI/HI, voluntary Last updated by Jaz Rondon PA at 02/07/24 23:04 Sign Out Comment: No interventions throughout the night. Pending voluntary placement Last updated by Win Gleason DO at 02/08/24 06:58 Sign Out Comment: voluntary for depression, hallucinations, no issues during shift Last updated by Torrey Tse MD at 02/08/24 14:44 Sign Out Comment: Voluntary for depression. No active behavioral issues. Please avoid benzodiazepines as much as possible. Last updated by Diego Redman MD at 02/08/24 22:28 Sign Out Comment: 43yo M presenting voluntary with depression. Not thought to meet involuntary criteria. Medically cleared, home meds in (will need to verified in the morning). Avoiding benzos. No behavioral issues overnight. Last updated by Cathy Thorpe MD at 02/09/24 06:34 Sign Out Comment: Patient here voluntarily, refused transfer to [facility]. Voluntary for depression hallucinations. Last updated by Win Gleason DO at 02/09/24 17:00 Sign Out Comment: Patient voluntary for depression and hallucinations declined transfer to [facility] also seeking other facilities. No issues during shift Last updated by Torrey Tse MD at 02/09/24 20:53 Discharge Plan Discharge Details Chief Complaint: PsychEval Primary Care Provider: Sophia Kelsey ED Provider: Cathy Thorpe Home Meds and New Rx's Prescriptions: No Action buprenorphine-naloxone [Suboxone] 8-2 mg film 1 film buccal Q24H Patient Comments: confirmed with [facility] 01/11/24 buprenorphine-naloxone [Suboxone] 12-3 mg film 1 film buccal Q24H Patient Comments: confirmed with [facility] 01/11/24 lisdexamfetamine [Vyvanse] 40 mg capsule 60 mg PO DAILY Patient Comments: pt states dose is 60mg 02/07/24 lisinopril 10 mg tablet 10 mg PO DAILY Qty: 90 3RF triamcinolone acetonide 0.025 % cream 1 applic topical DAILY PRN (Reason: rash) Qty: 15 0RF Rx Instructions: apply 0.25gm to face daily prn seborrhea clonidine HCl 0.2 mg tablet 0.2 mg PO DAILY PRN Rx Inst[facility]: [facility] melatonin 3 mg capsule 6 mg PO HS PRN Rx Instructions: Last RX'd by [facility]. gabapentin 300 mg capsule 300 mg PO TID Rx Instructions: Last RX'd by [facility] on 11/19/2022. -hb testosterone cypionate 200 mg/mL oil 200 mg IM Q2W Qty: 1 5RF naproxen 250 mg tablet 250 - 500 mg PO BID PRNQty: 40 0RF Rx Instructions: take with a meal quetiapine [Seroquel XR] 300 mg tablet extended release 24 hr 300 mg PO DAILY quetiapine [Seroquel XR] 300 mg tablet extended release 24 hr 600 mg PO QHS venlafaxine 225 mg tablet extended release 24hr 225 mg PO DAILY sulfasalazine 500 mg tablet 1 g PO BID Rx Instructions: give with food (meal/snack)
[2024-02-10] MEDS: Buprenorphine/Naloxone 8 mg/2 mg FILM 1 EACH SL (07:12)
[2024-02-10] MEDS: Gabapentin 300 MG CAP PO (07:12)
[2024-02-10] MEDS: Lisinopril 10 MG TAB PO (07:12)
[2024-02-10] MEDS: Buprenorphine/Naloxone 12 mg/3 mg FILM 1 EACH SL (07:12)
[2024-02-10] MEDS: Nicotine 21 MG/24 HR PATCH TD (07:30)
--- NOTE | 2024-02-10 07:56 | W.EDPROG ---
Date of service: 02/10/24 Time of Service: 07:56 Medical Decision Making patient well known to department. here for voluntary MH placement. Was accepted at [facility] but patient refused to go there. Will huddle with CM & [facility] to make a plan for disposition. Patient re-accepted by [facility]. I discussed with him and he agrees to participate in this care plan. Will arrange transport. 1150 patient has now declined hospitalization. He understands the alternative to his refusal of placement is discharge. At this time the patient has no SI, HI or need for a safety plan. He has the capacity to make his own medical decisions. He will be discharged. Medical Records Medical records reviewed: Yes I reviewed the patient's medical records. Quality:[facility] Health Related Social Needs: No Data to Display Sign Out Sign Out Data: Sign Out Comment: pending placement depression, auditory hallucinations, neg SI/HI, voluntary Last updated by Jaz Rondon PA at 02/07/24 23:04 Sign Out Comment: No interventions throughout the night. Pending voluntary placement Last updated by Win Gleason DO at 02/08/24 06:58 Sign Out Comment: voluntary for depression, hallucinations, no issues during shift Last updated by Torrey Tse MD at 02/08/24 14:44 Sign Out Comment: Voluntary for depression. No active behavioral issues. Please avoid benzodiazepines as much as possible. Last updated by Diego Redman MD at 02/08/24 22:28 Sign Out Comment: 43yo M presenting voluntary with depression. Not thought to meet involuntary criteria. Medically cleared, home meds in (will need to verified in the morning). Avoiding benzos. No behavioral issues overnight. Last updated by Cathy Thorpe MD at 02/09/24 06:34 Sign Out Comment: Patient here voluntarily, refused transfer to [facility]. Voluntary for depression hallucinations. Last updated by Win Gleason DO at 02/09/24 17:00 Sign Out Comment: Patient voluntary for depression and hallucinations declined transfer to [facility] also seeking other facilities. No issues during shift Last updated by Torrey Tse MD at 02/09/24 20:53 Sign Out Comment: Voluntary, depression/hallucinations, refused [facility] yesterday. Pending placement. Last updated by Cathy Thorpe MD at 02/10/24 06:38 Discharge Plan Disposition Patient Disposition: Home Discharge Details Clinical Impression: Anxiety, Malingering, Non compliance with medical treatment, Auditory hallucinations Primary Care Provider: Sophia Kelsey ED Provider: Isaac Gresham Home Meds and New Rx's Prescriptions: No Action buprenorphine-naloxone [Suboxone] 8-2 mg film 1 film buccal Q24H Patient Comments: confirmed with [facility] 01/11/24 buprenorphine-naloxone [Suboxone] 12-3 mg film 1 film buccal Q24H Patient Comments: confirmed with [facility] 01/11/24 lisdexamfetamine [Vyvanse] 40 mg capsule 60 mg PO DAILY Patient Comments: pt states dose is 60mg 02/07/24 lisinopril 10 mg tablet 10 mg PO DAILY Qty: 90 3RF triamcinolone acetonide 0.025 % cream 1 applic topical DAILY PRN (Reason: rash) Qty: 15 0RF Rx Instructions: apply 0.25gm to face daily prn seborrhea clonidine HCl 0.2 mg tablet 0.2 mg PO DAILY PRN Rx Instructions: Last RX'd by [facility] October 2022 melatonin 3 mg capsule 6 mg PO HS PRN Rx Instructions: Last RX'd by [facility]. gabapentin 300 mg capsule 300 mg PO TID Rx Instructions: Last RX'd by [facility] on 11/19/2022. -hb testosterone cypionate 200 mg/mL oil 200 mg IM Q2W Qty: 1 5RF naproxen 250 mg tablet 250 - 500 mg PO BID PRNQty: 40 0RF Rx Instructions: take with a meal quetiapine [Seroquel XR] 300 mg tablet extended release 24 hr 300 mg PO DAILY quetiapine [Seroquel XR] 300 mg tablet extended release 24 hr 600 mg PO QHS venlafaxine 225 mg tablet extended release 24hr 225 mg PO DAILY sulfasalazine 500 mg tablet 1 g PO BID Rx Instructions: give with food (meal/snack) Discharge Instructions Additional Instructions: You have been provided with the opportunity for inpatient treatment and have elected to go home instead. Please follow up with you primary care and mental health providers for continuation of care needs.
[2024-02-10] MEDS: sulfaSALAzine 500 MG TAB 1000 MG PO (10:25)
--- NOTE | 2024-02-11 07:18 | NUR.NOTE ---
Nursing Note: [facility] called to confirm suboxone doses while pt was here. Doses confirmed so treatment could continue while patient is in the community.
--- NOTE | 2024-02-11 07:28 | NUR.NOTE ---
[place] State of [employer], [place]; called asking for the discharge date and time of this patient. It was given to him. Nursing Note:
== END 2024-02-10 12:13 | disposition home or self-care (01) ==
PROVIDERS: Physician Assistant; Emergency Provider Emergency Medicine; PCP Family Medicine
DX: R44.0 Auditory hallucinations (principal); F32.A Depression, unspecified; F41.9 Anxiety disorder, unspecified; I10 Essential (primary) hypertension; F17.210 Nicotine dependence, cigarettes, uncomplicated
CPT/HCPCS: 00123; 80053; 80307; 99285; 85025; 99284; J3490

== ENCOUNTER 2024-03-07 07:45 | Emergency (ER) | payer MEDICAID, SELFPAY ==
[2024-03-07 07:48] VITALS: BP 167/124; PULSE 103; RESP 14; TEMP 36.9; O2SAT 96
[2024-03-07 08:26] LABS: Abs Immature Grans 0.02 10^3/uL (0.0-0.06); Absolute Basophil Count 0.04 10^3/uL (0.0-0.2); Absolute Eosinophil Count 0.06 10^3/uL (0.0-0.7); Absolute Lymphocyte Count 1.93 10^3/uL (1.2-3.4); Absolute Monocyte Count 0.69 10^3/uL (0.1-0.8); Absolute Neutrophil Count 4.33 10^3/uL (1.2-6.7); Basophils % 0.6 %; Eosinophils % 0.8 %; HCT 51.4 % (40.0-50.0); HGB 17.5 g/dL (13.5-17.5); Immature Grans % 0.3 %; Lymphocytes % 27.3 %; MCH 30.1 pg (27.0-33.0); MCV 89 fL (80-95); MPV 9.1 fL (8.0-11.0); Monocytes % 9.8 %; Neutrophils % 61.2 %; Platelet Count 220 10^3/uL (130-400); RBC 5.81 10^6/uL (4.36-5.78); RDW 13.4 % (11.8-14.1); RDW-SD 43.6 fL; WBC 7.07 10^3/uL (4.4-10.8)
--- NOTE | 2024-03-07 08:26 | W.ED.GENAD ---
Discharge Plan Discharge Details Chief Complaint: PsychEval Primary Care Provider: Sophia Kelsey ED Provider: Danisha José Home Meds and New Rx's Prescriptions: No Action buprenorphine-naloxone [Suboxone] 8-2 mg film 1 film buccal Q24H Patient Comments: confirmed with [facility] 01/11/24 buprenorphine-naloxone [Suboxone] 12-3 mg film 1 film buccal Q24H Patient Comments: confirmed with [facility] 01/11/24 lisdexamfetamine [Vyvanse] 40 mg capsule 60 mg PO DAILY Patient Comments: pt states dose is 60mg 02/07/24 lisinopril 10 mg tablet 10 mg PO DAILY Qty: 90 3RF triamcinolone acetonide 0.025 % cream 1 applic topical DAILY PRN (Reason: rash) Qty: 15 0RF Rx Instructions: apply 0.25gm to face daily prn seborrhea clonidine HCl 0.2 mg tablet 0.2 mg PO DAILY PRN Rx Instructions: Last RX'd by Patricia Mantoloking October 2022 melatonin 3 mg capsule 6 mg PO HS PRN Rx Instructions: Last RX'd by [place] Mant[place]. gabapentin 300 mg capsule 300 mg PO TID Rx Instructions: Last RX'd by [place] Mantoloking on 11/19/2022. -hb testosterone cypionate 200 mg/mL oil 200 mg IM Q2W Qty: 1 5RF naproxen 250 mg tablet 250 - 500 mg PO BID PRNQty: 40 0RF Rx Instructions: take with a meal quetiapine [Seroquel XR] 300 mg tablet extended release 24 hr 300 mg PO DAILY quetiapine [Seroquel XR] 300 mg tablet extended release 24 hr 600 mg PO QHS venlafaxine 225 mg tablet extended release 24hr 225 mg PO DAILY sulfasalazine 500 mg tablet 1 g PO BID Rx Instructions: give with food (meal/snack) HPI General Date/Time Provider Initiated Documentation: 03/07/24 08:04. HPI Narrative: Dangelo is a 43-year-old male with history of hypertension, major depressive disorder with psychotic symptoms, and anxiety who presents to the emergency department today for worsening depression/anxiety with auditory hallucinations that have become more frantic. He denies HI/SI, visual hallucinations, self-harm behaviors, drug use, alcohol use. He reports he has recently been in good health, does admit to occasional chills/hot flashes, says this is something that has been coming and going for a while now. Denies congestion, cough, chest pain, nausea/vomiting, change in p.o. intake, abdominal pain, change in bowel or bladder function. Unable to identify any recent stressors that may be aggravating symptoms. He is open to hospitalization, says that he would prefer not to go [facility] but is open to other facilities. Related Data Home Medications Medication Instructions Recorded Confirmed clonidine HCl 0.2 mg tablet 0.2 mg PO DAILY PRN 12/04/22 03/07/24 gabapentin 300 mg capsule 300 mg PO TID 12/04/22 03/07/24 melatonin 3 mg capsule 6 mg PO HS PRN 12/04/22 03/07/24 buprenorphine 12 mg-naloxone 3 mg 1 film buccal Q24H 01/03/23 03/07/24 sublingual film (Suboxone) buprenorphine 8 mg-naloxone 2 mg 1 film buccal Q24H 01/03/23 03/07/24 sublingual film (Suboxone) naproxen 250 mg tablet 250 - 500 mg (1 - 2 x 250 mg) PO 03/28/23 03/07/24 BID PRN #40 tabs triamcinolone acetonide 0.025 % 1 applic topical DAILY PRN rash 08/06/23 03/07/24 topical cream #15 grams lisinopril 10 mg tablet 10 mg PO DAILY #90 tabs 11/14/23 03/07/24 testosterone cypionate 200 mg/mL 200 mg IM Q2W #1 mL 11/19/23 03/07/24 intramuscular oil lisdexamfetamine 40 mg capsule 60 mg PO DAILY 01/16/24 03/07/24 (Vyvanse) quetiapine 300 mg tablet,extended 300 mg PO DAILY 02/09/24 03/07/24 release 24 hr (Seroquel XR) quetiapine 300 mg tablet,extended 600 mg PO QHS 02/09/24 03/07/24 release 24 hr (Seroquel XR) sulfasalazine 500 mg tablet 1 g PO BID 02/09/24 03/07/24 venlafaxine 225 mg tablet,extended 225 mg PO DAILY 02/09/24 03/07/24 release 24 hr Previous Rx's Medication Instructions Recorded naproxen 250 mg tablet 250 - 500 mg (1 - 2 x 250 mg) PO 03/28/23 BID PRN #40 tabs triamcinolone acetonide 0.025 % 1 applic topical DAILY PRN rash 08/06/23 topical cream #15 grams lisinopril 10 mg tablet 10 mg PO DAILY #90 tabs 11/14/23 testosterone cypionate 200 mg/mL 200 mg IM Q2W #1 mL 11/19/23 intramuscular oil Allergies Allergy/AdvReac Type Severity Reaction Status Date / Time No Known Allergies Allergy Verified 03/07/24 07:52 General Stated Complaint: PsychEval PACO: 2 Review of Systems Narrative: see HPI Exam Const General: cooperative, healthy appearing, comfortable, no acute distress, well developed and well groomed Nutritional Appearance: average body habitus HENMT Mouth: moist mucous membranes Resp Effort & Inspection: normal respiratory effort and able to speak in complete sentences Auscultation: clear to auscultation bilaterally Cardio Rate: regular rate Rhythm: regular rhythm Psych Appearance: grossly normal Speech and Movement: speech and movement normal Mood: congruent mood Affect: blunted Thought Content: hallucinations auditory Course Vital Signs Vital signs: Vital Signs Temperature 36.9 C 03/07/24 07:48 Pulse 103 H 03/07/24 07:48 Respiratory Rate 14 03/07/24 07:48 Blood Pressure 167/124 H 03/07/24 07:48 Pulse Oximetry 96 03/07/24 07:48 Temperature 36.9 C 03/07/24 07:48 Temperature Source Skin 03/07/24 07:48 Pulse 103 H 03/07/24 07:48 Respiratory Rate 14 03/07/24 07:48 Respiratory Effort Normal, Non-Labored 03/07/24 07:58 Blood Pressure 167/124 H 03/07/24 07:48 Blood Pressure Position Sitting 03/07/24 07:48 Pulse Oximetry 96 03/07/24 07:48 Oxygen Delivery Method Room Air 03/07/24 07:48 Oxygen Flow Rate 0 03/07/24 07:48 Pain Level 0 03/07/24 07:48 Medical Decision Making Dangelo is a 43-year-old male with history of hypertension, major depressive disorder with psychotic symptoms, and anxiety who presents to the emergency department today for worsening depression/anxiety with auditory hallucinations that have become more frantic. He denies HI/SI, visual hallucinations, self-harm behaviors, drug use, alcohol use. He reports he has recently been in good health, does admit to occasional chills/hot flashes, says this is something that has been coming and going for a while now. Denies congestion, cough, chest pain, nausea/vomiting, change in p.o. intake, abdominal pain, change in bowel or bladder function. Unable to identify any recent stressors that may be aggravating symptoms. He is open to hospitalization, says that he would prefer not to go [facility] but is open to other facilities. Physical exam very reassuring. Dangelo is alert and oriented, no acute distress. He does appear slightly anxious. Easy work of breathing, lung sounds clear bilaterally. Normal heart sounds. Slightly tacky mucous membranes. History and presentation could consistent with anxiety/depression, no change in content of hallucinations from baseline although they are more hectic/noisy than usual. Unable to clear patient using smart clearance based on diastolic blood pressure, patient does have a history of hypertension and takes lisinopril daily for this. He is reporting that he feels anxious, says he took his hydroxyzine 50 mg this morning prior to arrival to the emergency department. He is requesting his clonidine 0.2 mg as needed. This has been ordered for him I independently interpreted the following tests: CBC, CMP, TSH, and UA all reassuring. Patient medically cleared for crisis consult. Discussed case with Kelly Douglass, crisis paper and pulp mill worker. Patient is agreeable to seeking inpatient care, awaiting acceptance to a psychiatric facility. Quality:SDRI Health Related Social Needs: No Data to Display PFSH All Active Problems (Updated 02/24/24 @ 00:08 by STEPHANIE RAI) Non compliance with medical treatment (Acute) Chronic left shoulder pain (Acute) Hypogonadism, male (Chronic 03/24/18) Prior appt Dr. Charles at [facility] in [place], lost to FU; testosterone gel not effective, IM injections with improved levels Tobacco abuse (Chronic 11/19/17) 1 ppd Major depressive disorder, recurrent, severe with psychotic symptoms (Chronic) H/o Hospitalization at [facility]; psych meds managed through [facility]. Seborrheic dermatitis (Acute) Left ACL tear (Acute) Derangement of medial meniscus of left knee due to old injury (Acute) Medical History Opioid dependence in remission using Suboxone through [facility]. Hypertension Hx of cardiomyopathy Polysubstance abuse QT prolongation Closed right ankle fracture (~09/2019) Alcohol abuse ADD (attention deficit disorder) Surgical History S/P ACL reconstruction (2022) S/P hernia repair Family History Mother Diabetes Cancer thyroid cancer Father Diabetes Essential hypertension Paternal Grandfather No problems noted. Maternal Grandfather Stroke Paternal Uncle Cancer stomach cancer Other Family history of diabetes mellitus (DM) Social History Smoking/Tobacco Use Status: Current every day Tobacco Type: cigarettes Quit status: considering quitting Counseling given: provider counseling Smoking risk assessment performed?: Yes Alcohol Intake: former Year quit: 2021 Counseling given: Yes Drug use: Current Sobriety Substance use type: does not use Counseling provided: treatment program Details: Pt. states its been years since use. 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
[2024-03-07] MEDS: cloNIDine 0.1 MG TAB 0.2 MG PO ×3 (08:31→21:28)
[2024-03-07] MEDS: Nicotine 14 MG/24 HR PATCH TD (08:31)
[2024-03-07 09:01] VITALS: BP 124/89; PULSE 95; RESP 18; TEMP 36.8; O2SAT 96
[2024-03-07 09:02] LABS: ALT 19 U/L (16-63); AST 18 U/L (15-37); Albumin 4.3 g/dL (3.4-5.0); Alkaline Phosphatase 104 U/L (46-116); BUN 16 mg/dL (7-18); Bilirubin, Total 0.7 mg/dL (0.2-1.0); CREATININE 0.9 mg/dL (0.70-1.30); Calcium 9.8 mg/dL (8.5-10.1); Chloride 101 mmol/L (98-107); Estimated GFR 108.68 (mL/min/1.73m2); Glucose 119 mg/dL (74-106); Sodium 139 mmol/L (136-145); TSH (W/Ref FT4) 2.36 uIU/mL (0.36-3.74); Total Protein 7.9 g/dL (6.4-8.2)
[2024-03-07 09:04] LABS: ETHANOL BLOOD < 3.0 mg/dL (<10)
[2024-03-07 09:47] LABS: Bilirubin Negative (Negative); Blood Negative (Negative); Clarity Clear (Clear); Glucose Negative (Negative); Ketones Negative (Negative); Leukocyte Esterase Negative (Negative); Nitrite Negative (Negative); Specific Gravity <= 1.005 (1.005-1.025); Urobilinogen 0.2 mg/dL (Up to 0.2)
[2024-03-07 09:54] LABS: *AMPHETAMINES SCREEN URINE Positive (Negative); *BARBITURATES SCREEN URINE Negative (Negative); *BENZODIAZEPINES SCREEN URINE Negative (Negative); Cannabinoids THC Negative (Negative); Cocaine Screen,Urine Negative (Negative); METHADONE URINE SCREEN Negative (Negative); OPIATES URINE SCREEN Negative (Negative)
[2024-03-07 09:56] LABS: Tricyclic Antidepressants Positive (Negative)
[2024-03-07 10:16] LABS: COVID-19 PCR Negative (Negative); Influenza A PCR Negative (Negative); Influenza B PCR Negative (Negative); RSV PCR Negative (Negative)
--- NOTE | 2024-03-07 10:21 | CMSP_ITS ---
Date of service: 03/07/24 Time of Service: 10:22 Care Management Safety Plan Status Status: Voluntary Reason for Wait Reason for Wait: Inpatient Admission Safety Plan Safety Plan: VOLUNTARY FOR INPATIENT PSYCHIATRIC STABILIZATION.? Patient is appropriate in all interactions since arriving at [facility]; Pt has demonstrated appropriate coping and communication skills, has articulated his needs and concerns and is fully engaged during staff interactions. Safety plan has been established with patient, and care team, to adhere to patient goals, identify restrictions based on behavioral status, address nutrition, and determine allowed personal belongings, tools for hygiene and personal care. Determine level of activity including ambulation, level of supervision, visitors, and determine privileges based on behaviors and level of engagement by pt. SAFETY PLAN: 1. Will remain on suicide precautions, in paper clothes 2. Will remain in Zone B under direct supervision of one-on-one staff at all times provided by [employer]; JAYDEN, [employer] pet ambassador. 3. May have paper cups, plates, finger foods as well as a cardboard spoon with which to eat meals. 4. Follow [facility] Management of the Admitted Behavioral Health Patient policy. 5. Shower available in Zone B without restriction. 6. Personal belongings-soft items permitted at RN discretion. 7. Visitors- parents permitted, at RN discretion. 8. Activities: soft cart items approved per RN discretion. 9.? Bathroom available in Zone B without restriction. 10. Phone: incoming/outgoing calls limited to [facility] cordless phone at RN discretion. Due to VOLUNTARY status, if patient wishes to leave [facility], staff will contact [facility] Crisis Screener ([phone]) and Tablet Technician ([phone]) as soon as possible. In the event of elopement, notify [facility] Police ([phone]). Patient is currently voluntarily at [facility] and seeking inpatient admission when a bed becomes available. [facility] Frontline Brush Sander will continue seeking placement. Please contact the Tablet Technician ([phone]) and [facility] Brush Sander ([phone]) for any needed changes in the Safety Plan. Safety plan has been provided to interdepartmental care team.
--- NOTE | 2024-03-07 10:24 | CMPROGNOTE_ITS ---
Date of service: 03/07/24 Time of Service: 10:24 Care Management Progress Note Progress Note Text Progress Note Text: 10:00: CM met with ED staff to discuss Dangelo's plan of care. 10:30: Dangelo was medically cleared and is awaiting mental health screening by [facility] clinician. 11:15: Kelly [facility], contacted CM and informed that Dangelo will remain at [facility] while waiting for voluntary inpatient psychiatric hospitalization. She stated that per Dangelo, he would prefer to not go to [facility], but is willing to seek voluntary treatment at this time. Kelly reported that referrals are being sent to all hospitals. CM will continue to follow.
[2024-03-07 11:22] LABS: Source Nasopharynx
--- NOTE | 2024-03-07 11:59 | PDOC.MHCN ---
Date of service: 03/07/24 Time of Service: 10:20 PHQ-9 Over the last 2 weeks, how often have you been bothered by any of the following problems? 1. Little interest or pleasure in doing things: nearly every day 2. Feeling down, depressed, or hopeless: nearly every day 3. Trouble falling or staying asleep, or sleeping too much: not at all 4. Feeling tired or having little energy: nearly every day 5. Poor appetite or overeating: several days 6. Feeling bad about yourself - or that you are a failure or have let yourself and your family down: more than half the days 7. Trouble concentrating on things, such as reading the newspaper or watching television: nearly every day 8. Moving or speaking so slowly that other people could have noticed? - Or the opposite - being so fidgety or restless that you have been moving around a lot more than usual: more than half the days 9. Thoughts that you would be better off or of hurting yourself in some way: not at all (Client stated I cant answer that) Total score: 17 Source: Developed by Drs. Jamie Gustafson, Violeta Sorenson, Perry Dwyer and colleagues, with an educational didi from [employer]. Suicide Severity Rate CSSRS Have you wished you were or wished you could go to sleep and not wake up?: No Have you actually had any thoughts of killing yourself?: No CSSRS2 Have you been thinking about how you might do this?: No Have you had these thoughts and had some intention of acting on them?: No Have you started to work out or worked out the details of how to kill yourself? 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: Yes Non Suicidal Self Injury Current: No History: No Safety Risk/Harm to Self or Others Current Ideation to Harm Self or Others: No Risk: Does risk to harm exist?: No Risk: N/A (denies all lethality concerns) Duty to warn indicated: No Asssessment/Mental Status Appearance: Disheveled Attitude: Cooperative Behavior: Agitated Speech: Slow and Hesitant Affect: Cogruent with mood Mood: Stressed, Anxious and Irritable Thought process: Poverty of content Hallucinations: yes, Auditory (thought blocking) Delusions: No evidence Attention: Wandering Perception: Not impaired Orientation: Fully orientated Memory: Intact Insight: Fair Judgement: Fair Neurovegetative Symptoms Sleep: No change Appetitie: Decrease Interests: Decrease Energy: Decrease Libido: Not applicable Impression Client is a 43 year old male, presenting to [facility] for crisis assessment via [facility]. Client presents orientated across all spheres, dress disheveled, denies SI and HI. Reported feeling increased anxiety, rumination, excessive worries, and stress. Client stated consistent auditory hallucinations as evidenced by client responding to internal stimuli throughout the assessment. Eyes wandering and periods of thought blocking. Client did show some linear thought content, reported increased anxiety its all consuming client tearful and guarded throughout the assessment although cooperative. Client showed signs of paranoia and repeating this isn't right I should be happy privacy, these voices give me no privacy. Client is looking for support with symptoms, discussed recent evaluation, client reports more willing for voluntary support due to deterrents i.e., daughter and parents whom ct identifies as natural supports. Ct requesting voluntary placement. referral submitted to , [facility], [facility] and Plan/Disposition Recommended Disposition: Hospitalization facilities contacted. Plan: Client will remain boarding at [facility] awaiting voluntary placement, referral to , [facility], [facility] and Person reported agreement to plan: Yes Facilities contacted if Applicable [facility] (referral submitted ) Accepted, (referral submitted ) Other (referral submitted ). Information Sent to [place]: Referral [facility] (referral submitted ) Accepted, Other (referral submitted ). Information Sent to [facility]: Referral [facility] (referral submitted ) Accepted, Other (referral submitted ). Information Sent to [place]: Referral, [facility] (referral submitted ) Accepted, Other (referral submitted ). Information Sent to [place]: Referral Reports/communication Outcome discussed with: ED/Personnel (MD, internal audit senior manager and RN)
--- NOTE | 2024-03-07 12:01 | NUR.NOTE ---
Nursing Note:Need to confirm with [place] about prescriptions. Reports taking hydroxyzine 50 mg TID. He is unsure of dosage of his venlafaxine. he thinks it is 300mg not 225mg
--- NOTE | 2024-03-07 12:19 | PDOC.MHCN ---
Date of service: 03/07/24 Time of Service: 10:20 PHQ-9 Over the last 2 weeks, how often have you been bothered by any of the following problems? 1. Little interest or pleasure in doing things: nearly every day 2. Feeling down, depressed, or hopeless: nearly every day 3. Trouble falling or staying asleep, or sleeping too much: not at all 4. Feeling tired or having little energy: nearly every day 5. Poor appetite or overeating: several days 6. Feeling bad about yourself - or that you are a failure or have let yourself and your family down: more than half the days 7. Trouble concentrating on things, such as reading the newspaper or watching television: nearly every day 8. Moving or speaking so slowly that other people could have noticed? - Or the opposite - being so fidgety or restless that you have been moving around a lot more than usual: more than half the days 9. Thoughts that you would be better off or of hurting yourself in some way: not at all (Client stated I cant answer that) Total score: 17 Source: Developed by Drs. Jamie Gustafson, Violeta Sorenson, Perry Dwyer and colleagues, with an educational didi from [employer]. 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: Yes Non Suicidal Self Injury Current: No History: No Safety Risk/Harm to Self or Others Current Ideation to Harm Self or Others: No Risk: Does risk to harm exist?: No Risk: N/A (denies all lethality concerns) Duty to warn indicated: No Asssessment/Mental Status Appearance: Disheveled Attitude: Cooperative Behavior: Agitated Speech: Slow and Hesitant Affect: Cogruent with mood Mood: Stressed, Anxious and Irritable Thought process: Poverty of content Hallucinations: yes, Auditory (thought blocking) Delusions: No evidence Attention: Wandering Perception: Not impaired Orientation: Fully orientated Memory: Intact Insight: Fair Judgement: Fair Neurovegetative Symptoms Sleep: No change Appetitie: Decrease Interests: Decrease Energy: Decrease Libido: Not applicable Impression Client is a 43 year old male, presenting to [facility] for crisis assessment via [facility]. Client presents orientated across all spheres, dress disheveled, denies SI and HI. Reported feeling increased anxiety, rumination, excessive worries, and stress. Client stated consistent auditory hallucinations as evidenced by client responding to internal stimuli throughout the assessment. Eyes wandering and periods of thought blocking. Client did show some linear thought content, reported increased anxiety its all consuming client tearful and guarded throughout the assessment although cooperative. Client showed signs of paranoia and repeating this isn't right I should be happy privacy, these voices give me no privacy. Client is looking for support with symptoms, discussed recent evaluation, client reports more willing for voluntary support due to deterrents i.e., daughter and parents whom ct identifies as natural supports. Ct requesting voluntary placement. referral submitted to , [facility], [facility] and Plan/Disposition Recommended Disposition: Hospitalization facilities contacted. Plan: Client will remain boarding at [facility] awaiting voluntary placement, referral to , [facility], [facility] and Person reported agreement to plan: Yes Facilities contacted if Applicable [facility] (referral submitted ) Accepted, (referral submitted ) Other (referral submitted ). Information Sent to [place]: Referral [facility] (referral submitted ) Accepted, Other (referral submitted ). Information Sent to [facility]: Referral [facility] (referral submitted ) Accepted, Other (referral submitted ). Information Sent to [place]: [facility] Accepted, Other (referral submitted ). Information Sent to [place]: Referral Reports/communication Outcome discussed with: ED/Personnel (MD, hospital account manager and RN)
[2024-03-07] MEDS: hydrOXYzine HCL 25 MG TAB PO ×2 (15:18→21:27)
[2024-03-07] MEDS: Gabapentin 300 MG CAP (15:23)
--- NOTE | 2024-03-07 15:24 | NUR.NOTE ---
Nursing Note: patient requested venlafaxine this afternoon because of not getting his morning dose. Patient decided not to take this dose because he wanted to keep taking prescription in the morning
[2024-03-07] MEDS: QUEtiapine 300 MG TAB 600 MG PO (21:27)
[2024-03-07] MEDS: Gabapentin 300 MG CAP PO (21:27)
[2024-03-08] MEDS: hydrOXYzine HCL 25 MG TAB PO ×3 (06:55→21:24)
[2024-03-08] MEDS: cloNIDine 0.1 MG TAB 0.2 MG PO ×2 (06:55→19:39)
[2024-03-08 07:24] VITALS: BP 116/85; PULSE 88; RESP 18; TEMP 36.6; O2SAT 95
[2024-03-08] MEDS: Venlafaxine 75 MG CAPCR 225 MG PO (09:33)
[2024-03-08] MEDS: Lisdexamphetamine 60 MG CAP PO (09:33)
[2024-03-08] MEDS: QUEtiapine 300 MG TAB PO (09:34)
[2024-03-08] MEDS: Lisinopril 10 MG TAB PO (09:34)
[2024-03-08] MEDS: Buprenorphine/Naloxone 8 mg/2 mg FILM 1 EACH SL (09:34)
[2024-03-08] MEDS: Gabapentin 300 MG CAP PO ×3 (09:34→20:09)
[2024-03-08] MEDS: Buprenorphine/Naloxone 12 mg/3 mg FILM 1 EACH SL (09:35)
--- NOTE | 2024-03-08 10:54 | MHPN_ITS ---
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 He was last seen on 03.05.24 by his team and is compliant with his appointments. He has attempted to be hospitalized numerous times in the last 2 months for symptoms of AH, anxiety and depression however, after waiting for too long for a bed his anxiety becomes overwhelming and he has to leave or he has declined placement. The client presented voluntarily for the same symptoms on 02.08.24. This re-assessment is completed face to face at bedside with KALEB Noriega. 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 He lives with his parents in [place]. The client denied SI and HI today but by hx has had SI with plan and intent and done self harming things (cutting, jumping into river when he cannot swim). He could not attend to any screening tools today due to his level of hallucinations. All underrepresented categories were honored in this assessment. He was last hospitalized per his report last spring at . Per this clinician's observations of significant AH's although not as severe this time as evidenced by ability to converse more without disruptions. The client is watching TV upon entry that is in a different language. He sits up to meet with this clinician. He reports good sleep however, nursing report he did not sleep at all but was instead very fixated on his Vyvanse and pacing all night. He reported a good appetite and endorsed still having A/H. Plan/Disposition Recommended Disposition: Hospitalization facilities contacted. Plan: There are no beds available today. This clinician spoke to the client regarding and that it is likely they will be the one to accept and would they accept that as an option. He stated that he will consider when offered and asked about referrals to [facility]. This was discussed as well. THe client will remain at [facility] pending admission. Person reported agreement to plan: Yes Reports/communication Outcome discussed with: ED/Personnel
--- NOTE | 2024-03-08 13:12 | W.EDPROG ---
Date of service: 03/08/24 Time of Service: 13:12 Medical Decision Making Called to bedside to evaluate the patient as he is threatening to leave. On evaluation, the patient stated that he wanted to use the telephone. Patient was instructed earlier that he would not have unlimited phone privileges he just got off the phone with his mother to discuss bringing his medicine that we do not have access to, his testosterone. He states that it is his mother and he has the right to call her whenever he wants and that he will not tell us what he needs to talk to her about or offer us the opportunity to resolve this issue for him. The patient was told by nursing staff that he could make another phone call at a later time. However, phone calls with his parents seem to escalate his instability and I do not feel that they are beneficial to him at this time. I think that having more limited phone access or structured access is beneficial to the patient's anxiety. The patient stated to me if you do not let me use the phone right now that I am going to walk out of here. He was advised that that would be his decision to make and that creating manipulative ultimatums would not be tolerated. He was advised that he can use the phone later if he would like and the patient stated that he would stay. Quality:SDOH Health Related Social Needs: No Data to Display Sign Out Sign Out Data: Sign Out Comment: Dangelo is a 43-year-old male with history of depression/anxiety with psychotic features (auditory hallucinations) who presented to the emergency department today for acute exacerbation of same. Pt medically cleared. Denies SI/HI. He is voluntary, agreeable to inpatient placement. At home meds ordered. Last updated by Danisha José at 03/07/24 16:08 Sign Out Comment: Patient awaiting psychiatric bed, voluntary, home meds ordered. No acute agitation or acute outbursts on shift today. Resting comfortably Last updated by Win Rutherford PA at 03/07/24 22:49 Sign Out Comment: Patient awaiting voluntary psychiatric bed placement. Patient stable throughout the night with no need for interventions. Last updated by Win Gleason DO at 03/08/24 07:49 Discharge Plan Discharge Details Chief Complaint: PsychEval Primary Care Provider: Sophia Kelsey ED Provider: Isaac Gresham Home Meds and New Rx's Prescriptions: No Action buprenorphine-naloxone [Suboxone] 8-2 mg film 1 film buccal Q24H Patient Comments: confirmed with [facility] 03/08/24 buprenorphine-naloxone [Suboxone] 12-3 mg film 1 film buccal Q24H Patient Comments: confirmed with [place] 03/08/24 lisdexamfetamine [Vyvanse] 40 mg capsule 60 mg PO DAILY Patient Comments: pt states dose is 60mg 02/07/24 lisinopril 10 mg tablet 10 mg PO DAILY Qty: 90 3RF triamcinolone acetonide 0.025 % cream 1 applic topical DAILY PRN (Reason: rash) Qty: 15 0RF Rx Instructions: apply 0.25gm to face daily prn seborrhea clonidine HCl 0.2 mg tablet 0.2 mg PO DAILY PRN Rx Instructions: Last RX'd by [facility] October 2022 melatonin 3 mg capsule 6 mg PO HS PRN Rx Instructions: Last RX'd by [facility]. gabapentin 300 mg capsule 300 mg PO TID Rx Instructions: Last RX'd by [facility] on 11/19/2022. -hb testosterone cypionate 200 mg/mL oil 200 mg IM Q2W Qty: 1 5RF Patient Comments: per [facility] was last filled on 03/05, pt states he hasn't taken yet, last picked up 02/10, 01/20, 01/06, 12/01 naproxen 250 mg tablet 250 - 500 mg PO BID PRNQty: 40 0RF Rx Instructions: take with a meal quetiapine [Seroquel XR] 300 mg tablet extended release 24 hr 300 mg PO DAILY quetiapine [Seroquel XR] 300 mg tablet extended release 24 hr 600 mg PO QHS venlafaxine 225 mg tablet extended release 24hr 225 mg PO DAILY sulfasalazine 500 mg tablet 1 g PO BID Rx Instructions: give with food (meal/snack)
[2024-03-08] MEDS: Nicotine 14 MG/24 HR PATCH TD (14:12)
--- NOTE | 2024-03-08 17:05 | ED.PROG_ITS ---
Date of service: 03/08/24 Time of Service: 17:05 Medical Decision Making Patient signed out to me pending voluntary placement for depression and hallucinations, patient currently calm and cooperative with no new acute complaints will continue to monitor until safe disposition found Quality:SDOH Health Related Social Needs: No Data to Display Sign Out Sign Out Data: Sign Out Comment: Dangelo is a 43-year-old male with history of depression/anxiety with psychotic features (auditory hallucinations) who presented to the emergency department today for acute exacerbation of same. Pt medically cleared. Denies SI/HI. He is voluntary, agreeable to inpatient placement. At home meds ordered. Last updated by Danisha José at 03/07/24 16:08 Sign Out Comment: Patient awaiting psychiatric bed, voluntary, home meds ordered. No acute agitation or acute outbursts on shift today. Resting comfor tably Last updated by Win Rutherford PA at 03/07/24 22:49 Sign Out Comment: Patient awaiting voluntary psychiatric bed placement. Patient stable throughout the night with no need for interventions. Last updated by Win Gleason DO at 03/08/24 07:49 Sign Out Comment: pending voluntary placement all home meds have been ordered ++manipulative to use phone, get higher doses of meds but redirectable Last updated by Isaac Gresham MD at 03/08/24 16:35 Discharge Plan Discharge Details Chief Complaint: PsychEval Primary Care Provider: Sophia Kelsey ED Provider: Torrey Tse Home Meds and New Rx's Prescriptions: No Action buprenorphine-naloxone [Suboxone] 8-2 mg film 1 film buccal Q24H Patient Comments: confirmed with [facility] 03/08/24 buprenorphine-naloxone [Suboxone] 12-3 mg film 1 film buccal Q24H Patient Comments: confirmed with [facility] 03/08/24 lisdexamfetamine [Vyvanse] 40 mg capsule 60 mg PO DAILY Patient Comments: pt states dose is 60mg 02/07/24 lisinopril 10 mg tablet 10 mg PO DAILY Qty: 90 3RF triamcinolone acetonide 0.025 % cream 1 applic topical DAILY PRN (Reason: rash) Qty: 15 0RF Rx Instructions: apply 0.25gm to face daily prn seborrhea clonidine HCl 0.2 mg tablet 0.2 mg PO DAILY PRN Rx Instructions: Last RX'd by Patricia [facility] October 2022 melatonin 3 mg capsule 6 mg PO HS PRN Rx Instructions: Last RX'd by [facility]. gabapentin 300 mg capsule 300 mg PO TID Rx Instructions: Last RX'd by Patricia [facility]oneat on 11/19/2022. -hb testosterone cypionate 200 mg/mL oil 200 mg IM Q2W Qty: 1 5RF Patient Comments: per [facility] was last filled on 03/05, pt states he hasn't taken yet, last picked up 02/10, 01/20, 01/06, 12/01 naproxen 250 mg tablet 250 - 500 mg PO BID PRNQty: 40 0RF Rx Instructions: take with a meal quetiapine [Seroquel XR] 300 mg tablet extended release 24 hr 300 mg PO DAILY quetiapine [Seroquel XR] 300 mg tablet extended release 24 hr 600 mg PO QHS venlafaxine 225 mg tablet extended release 24hr 225 mg PO DAILY sulfasalazine 500 mg tablet 1 g PO BID Rx Instructions: give with food (meal/snack)
--- NOTE | 2024-03-08 19:14 | CMSP_ITS ---
Date of service: 03/08/24 Time of Service: 19:15 Care Management Safety Plan Status Status: Voluntary Reason for Wait Reason for Wait: Inpatient Admission Safety Plan Safety Plan: VOLUNTARY FOR INPATIENT PSYCHIATRIC STABILIZATION.? Patient is appropriate in all interactions since arriving at [facility]; Pt has demonstrated appropriate coping and communication skills, has articulated his needs and concerns and is fully engaged during staff interactions. Safety plan has been established with patient, and care team, to adhere to patient goals, identify restrictions based on behavioral status, address nutrition, and determine allowed personal belongings, tools for hygiene and personal care. Determine level of activity including ambulation, level of supervision, visitors, and determine privileges based on behaviors and level of engagement by pt. SAFETY PLAN: 1. Will remain on suicide precautions, in paper clothes 2. Will remain in Zone B under direct supervision of one-on-one staff at all times provided by [employer]; JAYDEN, AIRBRUSH ARTIST PHOTOGRAPHY supervisor briar shop. 3. May have paper cups, plates, finger foods as well as a cardboard spoon with which to eat meals. 4. Follow [facility] Management of the Admitted Behavioral Health Patient policy. 5. Shower available in Zone B without restriction. 6. Personal belongings-soft items permitted at RN discretion. 7. Visitors- parents permitted, at RN discretion. 8. Activities: soft cart items approved per RN discretion. 9.? Bathroom available in Zone B without restriction. 10. Phone: incoming/outgoing calls limited to [facility] cordless phone at RN discretion. Due to VOLUNTARY status, if patient wishes to leave [facility], staff will contact [facility] Crisis Screener ([phone]) and Chair ([phone]) as soon as possible. In the event of elopement, notify [facility] Police ([phone]). Patient is currently voluntarily at [facility] and seeking inpatient admission when a bed becomes available. [facility] Frontline Youth Minister will continue seeking placement. Please contact the Chair ([phone]) and [facility] Youth Minister ([phone]) for any needed changes in the Safety Plan. Safety plan has been provided to interdepartmental care team.
[2024-03-08 19:15] VITALS: BP 135/93; PULSE 98; RESP 18; TEMP 36.9; O2SAT 93
--- NOTE | 2024-03-08 19:15 | PDOC.CMPRO ---
Date of service: 03/08/24 Time of Service: 19:15 Care Management Progress Note Progress Note Text Progress Note Text: GLORIA met with ED staff to huddle regarding Dangelo's plan of care. MAULIK Jimenez, stated that their meeting went well today, and Dangelo was polite and respectful. He stated that he slept well overnight, although staff reported that he was pacing much of the night. Barbara stated that there are no available psychiatric beds today. Per RN, Dangelo has had increased delusions and paranoia this morning. He is perseverating over medications, including his vyvance and IM testosterone. His testosterone is a home medication, and he was asking to contact his father in order to have him bring it in. In the huddle, phone calls and visitation was discussed, as there was concern for him becoming agitated with family interaction. After this discussion, with input from MAULIK Jimenez, he was permitted to contact his father via phone, and visitation remains on the safety plan. No changes were made to his safety plan today.
[2024-03-08] MEDS: QUEtiapine 300 MG TAB 600 MG PO (20:10)
[2024-03-08] MEDS: Melatonin 3 MG TAB 6 MG PO (21:24)
[2024-03-09 08:21] VITALS: BP 137/96; PULSE 103; TEMP 36.9; O2SAT 97
[2024-03-09] MEDS: Lisinopril 10 MG TAB PO (08:26)
[2024-03-09] MEDS: Gabapentin 300 MG CAP PO ×3 (08:26→20:02)
[2024-03-09] MEDS: QUEtiapine 300 MG TAB PO (08:27)
[2024-03-09] MEDS: Lisdexamphetamine 60 MG CAP PO (08:27)
[2024-03-09] MEDS: Venlafaxine 75 MG CAPCR 225 MG PO (08:28)
[2024-03-09] MEDS: Buprenorphine/Naloxone 12 mg/3 mg FILM 1 EACH SL (08:30)
[2024-03-09] MEDS: Buprenorphine/Naloxone 8 mg/2 mg FILM 1 EACH SL (08:30)
--- NOTE | 2024-03-09 09:24 | CMSP_ITS ---
Date of service: 03/09/24 Time of Service: 09:24 Care Management Safety Plan Status Status: Voluntary Reason for Wait Reason for Wait: Inpatient Admission Safety Plan Safety Plan: VOLUNTARY FOR INPATIENT PSYCHIATRIC STABILIZATION.? Patient is appropriate in all interactions since arriving at [facility]; Pt has demonstrated appropriate coping and communication skills, has articulated his needs and concerns and is fully engaged during staff interactions. Safety plan has been established with patient, and care team, to adhere to patient goals, identify restrictions based on behavioral status, address nutrition, and determine allowed personal belongings, tools for hygiene and personal care. Determine level of activity including ambulation, level of supervision, visitors, and determine privileges based on behaviors and level of engagement by pt. CM reviewed with [facility] clinician, [facility] B JAYDEN, RN and individually with RN Automatic Toe Laster. Dangelo is being reviewed by Rogerio. CM will follow. SAFETY PLAN: 1. Will remain on suicide precautions, in paper clothes 2. Will remain in [facility] under direct supervision of one-on-one staff at all times provided by [employer]; JAYDEN, [employer] detective supervisor. 3. May have paper cups, plates, finger foods as well as a cardboard spoon with which to eat meals. 4. Follow [facility] Management of the Admitted Behavioral Health Patient policy. 5. Shower available in Zone without restriction. 6. Personal belongings-soft items permitted at RN discretion. 7. Visitors- parents permitted, at RN discretion. 8. Activities: soft cart items approved per RN discretion. 9.? Bathroom available in [facility] without restriction. 10. Phone: incoming/outgoing calls limited to [facility] cordless phone at RN discretion. Due to VOLUNTARY status, if patient wishes to leave [facility], staff will contact [facility] Crisis Screener ([phone]) and Medical Office Rep ([phone]) as soon as possible. In the event of elopement, notify [facility] Police ([phone]). Patient is currently voluntarily at [facility] and seeking inpatient admission when a bed becomes available. [facility] Frontline Mold Cooler will continue seeking placement. Please contact the Medical Office Rep ([phone]) and [facility] Mold Cooler ([phone]) for any needed changes in the Safety Plan. Safety plan has been provided to interdepartmental care team.
--- NOTE | 2024-03-09 09:24 | PDOC.CMSAFE ---
Date of service: 03/09/24 Time of Service: 09:24 Care Management Safety Plan Status Status: Voluntary Reason for Wait Reason for Wait: Inpatient Admission Safety Plan Safety Plan: VOLUNTARY FOR INPATIENT PSYCHIATRIC STABILIZATION.? Patient is appropriate in all interactions since arriving at [facility]; Pt has demonstrated appropriate coping and communication skills, has articulated his needs and concerns and is fully engaged during staff interactions. Safety plan has been established with patient, and care team, to adhere to patient goals, identify restrictions based on behavioral status, address nutrition, and determine allowed personal belongings, tools for hygiene and personal care. Determine level of activity including ambulation, level of supervision, visitors, and determine privileges based on behaviors and level of engagement by pt. CM reviewed with [facility] clinician, [facility] B JAYDEN, RN and individually with RN Barber Tool Sharpener. Dangelo is being reviewed by Rogerio. CM will follow. SAFETY PLAN: 1. Will remain on suicide precautions, in paper clothes 2. Will remain in [facility] under direct supervision of one-on-one staff at all times provided by [employer]; JAYDEN, SAMEERA college or university business manager. 3. May have paper cups, plates, finger foods as well as a cardboard spoon with which to eat meals. 4. Follow [facility] Management of the Admitted Behavioral Health Patient policy. 5. Shower available in Zone without restriction. 6. Personal belongings-soft items permitted at RN discretion. 7. Visitors- parents permitted, at RN discretion. 8. Activities: soft cart items approved per RN discretion. 9.? Bathroom available in [facility] without restriction. 10. Phone: incoming/outgoing calls limited to [facility] cordless phone at RN discretion. Due to VOLUNTARY status, if patient wishes to leave [facility], staff will contact [facility] Crisis Screener ([phone]) and Assembler Corncob Pipes ([phone]) as soon as possible. In the event of elopement, notify [facility] Police ([phone]). Patient is currently voluntarily at [facility] and seeking inpatient admission when a bed becomes available. [facility] Frontline Privacy Analyst will continue seeking placement. Please contact the Assembler Corncob Pipes ([phone]) and [facility] Privacy Analyst ([phone]) for any needed changes in the Safety Plan. Safety plan has been provided to interdepartmental care team.
[2024-03-09] MEDS: Nicotine 14 MG/24 HR PATCH TD (10:44)
--- NOTE | 2024-03-09 11:19 | PDOC.MHPN2 ---
Date of service: 03/09/24 Time of Service: 11:19 PHQ-9 Over the last 2 weeks, how often have you been bothered by any of the following problems? 1. Little interest or pleasure in doing things: nearly every day 2. Feeling down, depressed, or hopeless: nearly every day 3. Trouble falling or staying asleep, or sleeping too much: not at all 4. Feeling tired or having little energy: nearly every day 5. Poor appetite or overeating: several days 6. Feeling bad about yourself - or that you are a failure or have let yourself and your family down: more than half the days 7. Trouble concentrating on things, such as reading the newspaper or watching television: nearly every day 8. Moving or speaking so slowly that other people could have noticed? - Or the opposite - being so fidgety or restless that you have been moving around a lot more than usual: more than half the days 9. Thoughts that you would be better off or of hurting yourself in some way: not at all (Client stated I cant answer that) Total score: 17 Source: Developed by Drs. Jamie Gustafson, Violeta Sorenson, Perry Dwyer and colleagues, with an educational didi from [employer]. Suicide Severity Rate CSSRS Have you wished you were or wished you could go to sleep and not wake up?: No Have you actually had any thoughts of killing yourself?: No CSSRS2 Have you been thinking about how you might do this?: No Have you had these thoughts and had some intention of acting on them?: No Have you started to work out or worked out the details of how to kill yourself? Do you intend to carry out this plan?: No CSSRS3 Have you ever done anything, started to do anything or prepared to do anything to end your life?: No CSSRS4 Was this within the past three months?: No Screening Score Total Score: 0 Screening: Negative Mental Health Emergency Note Release [facility] release signed:: Yes Reason for Visit The client is well known to 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 He was last seen on 03.05.24 by his team and is compliant with his appointments. He has attempted to be hospitalized numerous times in the last 2 months for symptoms of AH, anxiety and depression however, after waiting for too long for a bed his anxiety becomes overwhelming and he has to leave or he has declined placement. The client arrived on 03.07.24 with complaints of AH with no SI or HI. 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. He lives with his parents in [place] [facility]. The client denied SI and HI today but by hx has had SI with plan and intent and done self harming things (cutting, jumping into river when he cannot swim). He could not attend to any screening tools today due to his level of hallucinations. All underrepresented categories were honored in this assessment. He was last hospitalized per his report last spring at . The client is screened in the common area today as he was sitting in the dark watching TV. Per this clinician's observations of significant AH's although not as severe this time as evidenced by ability to converse without disruptions/distractions. He made good eye contact and is fully oriented to person, place, time and situation. The client is respectful and engaged. He questioned what hospitals were being looked at and he was informed all. He asked specifically abut [facility] and was informed that he had been denied there and the reason why.day but by hx has had SI with plan and intent and done self harming things (cutting, jumping into river when he cannot swim). He could not attend to any screening tools today due to his level of hallucinations. All underrepresented categories were honored in this assessment. He was last hospitalized per his report last spring at . Per this clinician's observations of significant AH's although not as severe this time as evidenced by ability to converse more without disruptions. Plan/Disposition Recommended Disposition: Hospitalization facilities contacted. Plan: The client will remain at the ED pending acceptance. It is reported that he has been asking if he could leave if he wants to and was informed he could as there is nothing to hold him on an involuntary basis. The client will be evaluated daily until placed. He has been denied by [place] and [facility] is full. [facility] and are reviewing. Person reported agreement to plan: Yes Reports/communication Outcome discussed with: ED/Personnel
[2024-03-09] MEDS: hydrOXYzine HCL 25 MG TAB PO ×2 (12:58→19:23)
[2024-03-09] MEDS: Nicotine 2 MG LOZG SUC (13:45)
--- NOTE | 2024-03-09 16:44 | ED.PROG_ITS ---
Date of service: 03/09/24 Time of Service: 16:44 Medical Decision Making Accepted at [facility]. Calm cooperative no issues today. Quality:SDOH Health Related Social Needs: No Data to Display Sign Out Sign Out Data: Sign Out Comment: Dangelo is a 43-year-old male with history of depression/anxiety with psychotic features (auditory hallucinations) who presented to the emergency department today for acute exacerbation of same. Pt medically cleared. Denies SI/HI. He is voluntary, agreeable to inpatient placement. At home meds ordered. Last updated by Danisha José at 03/07/24 16:08 Sign Out Comment: Patient awaiting psychiatric bed, voluntary, home meds ordered. No acute agitation or acute outbursts on shift today. Resting comfortably Last updated by Win Rutherford PA at 03/07/24 22:49 Sign Out Comment: Patient awaiting voluntary psychiatric bed placement. Patient stable throughout the night with no need for interventions. Last updated by Win Gleason DO at 03/08/24 07:49 Sign Out Comment: pending voluntary placement all home meds have been ordered ++manipulative to use phone, get higher doses of meds but redirectable Last updated by Isaac Gresham MD at 03/08/24 16:35 Sign Out Comment: Patient awaiting voluntary psych bed placement no issues during shift. Last updated by Torrey Tse MD at 03/08/24 21:39 Sign Out Comment: Patient stable throughout the night, awaiting voluntary placement. No interventions needed. Last updated by Win Gleason DO at 03/09/24 05:51 Discharge Plan Disposition Patient Disposition: Psychiatric Hospital/Unit Specific Psychiatric Facility: [facility] Condition: Stable Discharge Details Chief Complaint: PsychEval Clinical Impression: Auditory hallucinations Primary Care Provider: Sophia Kelsey ED Provider: Eugene Handy Home Meds and New Rx's Prescriptions: No Action buprenorphine-naloxone [Suboxone] 8-2 mg film 1 film buccal Q24H Patient Comments: confirmed with [facility] 03/08/24 buprenorphine-naloxone [Suboxone] 12-3 mg film 1 film buccal Q24H Patient Comments: confirmed with [facility] 03/08/24 lisdexamfetamine [Vyvanse] 40 mg capsule 60 mg PO DAILY Patient Comments: pt states dose is 60mg 02/07/24 lisinopril 10 mg tablet 10 mg PO DAILY Qty: 90 3RF triamcinolone acetonide 0.025 % cream 1 applic topical DAILY PRN (Reason: rash) Qty: 15 0RF Rx Instructions: apply 0.25gm to face daily prn seborrhea clonidine HCl 0.2 mg tablet 0.2 mg PO DAILY PRN Rx Instructions: Last RX'd by Patricia [place] October 2022 melatonin 3 mg capsule 6 mg PO HS PRN Rx Instructions: Last RX'd by [place]. gabapentin 300 mg capsule 300 mg PO TID Rx Instructions: [facility] [place] [facility]. -hb testosterone cypionate 200 mg/mL oil 200 mg IM Q2W Qty: 1 5RF Patient Comments: per [facility] was last filled on 03/05, pt states he hasn't taken yet, last picked up 02/10, 01/20, 01/06, 12/01 naproxen 250 mg tablet 250 - 500 mg PO BID PRNQty: 40 0RF Rx Instructions: take with a meal quetiapine [Seroquel XR] 300 mg tablet extended release 24 hr 300 mg PO DAILY quetiapine [Seroquel XR] 300 mg tablet extended release 24 hr 600 mg PO QHS venlafaxine 225 mg tablet extended release 24hr 225 mg PO DAILY sulfasalazine 500 mg tablet 1 g PO BID Rx Instructions: give with food (meal/snack)
--- NOTE | 2024-03-09 17:05 | ED.PROG_ITS ---
Date of service: 03/09/24 Time of Service: 16:45 Medical Decision Making This patient was signed out to me. Please see previous notes for H&P and initial eval. In brief, 43yo M presenting with SI, voluntary, medically cleared, accepted to [facility] planned transfer tomorrow. No acute behavioral events. Signed out to oncoming physician, plan remains as above. Quality:SDOH Health Related Social Needs: No Data to Display Sign Out Sign Out Data: Sign Out Comment: Dangelo is a 43-year-old male with history of depression/anxiety with psychotic features (auditory hallucinations) who presented to the emergency department today for acute exacerbation of same. Pt medically cleared. Denies SI/HI. He is voluntary, agreeable to inpatient placement. At home meds ordered. Last updated by Danisha José at 03/07/24 16:08 Sign Out Comment: Patient awaiting psychiatric bed, voluntary, home meds ordered. No acute agitation or acute outbursts on shift today. Resting comfortably Last updated by Win Rutherford PA at 03/07/24 22:49 Sign Out Comment: Patient awaiting voluntary psychiatric bed placement. Patient stable throughout the night with no need for interventions. Last updated by Win Gleason DO at 03/08/24 07:49 Sign Out Comment: pending voluntary placement all home meds have been ordered ++manipulative to use phone, get higher doses of meds but redirectable Last updated by Isaac Gresham MD at 03/08/24 16:35 Sign Out Comment: Patient awaiting voluntary psych bed placement no issues during shift. Last updated by Torrey Tse MD at 03/08/24 21:39 Sign Out Comment: Patient stable throughout the night, awaiting voluntary placement. No interventions needed. Last updated by Win Gleason DO at 03/09/24 05:51 Sign Out Comment: accepted [facility], transporting tomorrow Last updated by Eugene Handy MD at 03/09/24 16:58 Discharge Plan Disposition Patient Disposition: Psychiatric Hospital/Unit Specific Psychiatric Facility: [facility] Condition: Stable Discharge Details Clinical Impression: Auditory hallucinations Primary Care Provider: Sophia Kelsey ED Provider: Cathy Thorpe Home Meds and New Rx's Prescriptions: No Action buprenorphine-naloxone [Suboxone] 8-2 mg film 1 film buccal Q24H Patient Comments: confirmed with [facility] 03/08/24 buprenorphine-naloxone [Suboxone] 12-3 mg film 1 film buccal Q24H Patient Comments: confirmed with [facility] 03/08/24 lisdexamfetamine [Vyvanse] 40 mg capsule 60 mg PO DAILY Patient Comments: pt states dose is 60mg 02/07/24 lisinopril 10 mg tablet 10 mg PO DAILY Qty: 90 3RF triamcinolone acetonide 0.025 % cream 1 applic topical DAILY PRN (Reason: rash) Qty: 15 0RF Rx Instructions: apply 0.25gm to face daily prn seborrhea clonidine HCl 0.2 mg tablet 0.2 mg PO DAILY PRN Rx Instructions: Last RX'd by Doralydia [facility] October 2022 melatonin 3 mg capsule 6 mg PO HS PRN Rx Instructions: Last RX'd by [place] [facility]. gabapentin 300 mg capsule 300 mg PO TID Rx Instructions: Last RX'd by [place] [facility] on 11/19/2022. -hb testosterone cypionate 200 mg/mL oil 200 mg IM Q2W Qty: 1 5RF Patient Comments: per [facility] was last filled on 03/05, pt states he hasn't taken yet, last picked up 02/10, 01/20, 01/06, 12/01 naproxen 250 mg tablet 250 - 500 mg PO BID PRNQty: 40 0RF Rx Instructions: take with a meal quetiapine [Seroquel XR] 300 mg tablet extended release 24 hr 300 mg PO DAILY quetiapine [Seroquel XR] 300 mg tablet extended release 24 hr 600 mg PO QHS venlafaxine 225 mg tablet extended release 24hr 225 mg PO DAILY sulfasalazine 500 mg tablet 1 g PO BID Rx Instructions: give with food (meal/snack)
[2024-03-09 19:20] VITALS: BP 147/105; PULSE 107; RESP 20; TEMP 36.6; O2SAT 95
[2024-03-09] MEDS: cloNIDine 0.1 MG TAB 0.2 MG PO (19:23)
[2024-03-09] MEDS: Melatonin 3 MG TAB 6 MG PO (20:02)
[2024-03-09] MEDS: QUEtiapine 300 MG TAB 600 MG PO (20:03)
[2024-03-10 07:19] VITALS: BP 136/90; PULSE 105; RESP 16; TEMP 36.7; O2SAT 97
[2024-03-10] MEDS: QUEtiapine 300 MG TAB PO (07:20)
[2024-03-10] MEDS: Buprenorphine/Naloxone 8 mg/2 mg FILM 1 EACH SL (07:20)
[2024-03-10] MEDS: Buprenorphine/Naloxone 12 mg/3 mg FILM 1 EACH SL (07:20)
[2024-03-10] MEDS: Venlafaxine 75 MG CAPCR 225 MG PO (07:21)
[2024-03-10] MEDS: Lisdexamphetamine 60 MG CAP PO (07:21)
[2024-03-10] MEDS: Lisinopril 10 MG TAB PO (07:21)
[2024-03-10] MEDS: Gabapentin 300 MG CAP PO (07:21)
[2024-03-10] MEDS: Nicotine 2 MG LOZG SUC (08:09)
--- NOTE | 2024-03-10 10:02 | CMDISCH_ITS ---
Date of service: 03/10/24 Time of Service: 10:03 LACE Index Scoring Tool Questions: Length of Stay (in days): 3 Was the patient admitted via the E.D.?: Yes E.D. Visits: 7 Answers: Total Score: 10 Risk of Readmission: High Risk Care Management Discharge Plan Reason for Hospitalization: Auditory Hallucinations; Voluntary placement for inpatient psychiatric care Discharge Plan: Dangelo will transfer to [facility] for inpatient psychiatric treatment. Patient/Family Education Needs: Review patient rights, MH transfer procedure, process, discharge instructions. Services Needed at Discharge: Psychiatric Facility ([facility]) and Transportation [facility] Health Related Social Needs: No Data to Display MH Services (Omit if N/A) Current MH Services: [facility] Disposition Disposition: [facility] Transport via of:
[2024-03-10 10:29] VITALS: BP 136/90; PULSE 105; RESP 16; TEMP 36.7; O2SAT 97
== END 2024-03-10 10:33 ==
PROVIDERS: Nurse Practitioner Family; Emergency Provider Emergency Medicine; PCP Family Medicine
DX: F32.A Depression, unspecified (principal); F41.9 Anxiety disorder, unspecified; R44.0 Auditory hallucinations; I10 Essential (primary) hypertension; F17.210 Nicotine dependence, cigarettes, uncomplicated
CPT/HCPCS: 00123; 80053; 80307; 87637; 96127; 99285; 80320; 81003; 84443; 85025

== ENCOUNTER 2024-04-22 02:55 | Outpatient (CLI) | payer MEDICAID, SELFPAY ==
[2024-04-22 12:45] LABS: Anion Gap 7.5 mmol/L (3-11); BUN 16 mg/dL (7-18); CO2 28.5 mmol/L (21.0-32.0); CREATININE 0.9 mg/dL (0.70-1.30); Calcium 9.6 mg/dL (8.5-10.1); Chloride 103 mmol/L (98-107); Estimated GFR 108.68 (mL/min/1.73m2); Glucose 109 mg/dL (74-106); Potassium 4.2 mmol/L (3.5-5.1); Sodium 139 mmol/L (136-145)
[2024-05-01 11:12] LABS: Testosterone, Free 13.8 ng/dL (4.46-17.1); Testosterone, Total 411 ng/dL (240-950)
== END 2024-04-22 02:56 | disposition home or self-care (01) ==
LOC: LBO 02:57
PROVIDERS: PCP Family Medicine; Visit Provider Family Medicine
DX: I10 Essential (primary) hypertension (principal); E29.1 Testicular hypofunction
CPT/HCPCS: 36415; 80048; 84402; 84403

== ENCOUNTER 2024-11-09 15:37 | Outpatient (CLI) | payer MEDICAID, SELFPAY ==
--- NOTE | 2024-11-09 14:30 | DI.RAD_ITS ---
Exam(s) XR KNEE LT 2V AP,LAT EXAM: XR KNEE LT 2V AP,LAT CLINICAL HISTORY: LEFT KNEE PAIN. TECHNIQUE: 2D digital imaging was performed of the left knee. Two images were obtained. AP and lat eral views were obtained. COMPARISON: CR XR KNEE LT 4V+ from 11/07/2021 MR MR LOWER JOINT LT WO from 02/25/2023 CR XR KNEE LT 3V AP,LAT,AMY from 05/06/2023 FINDINGS: BONES: No acute fracture is present. No bony destructive lesion is seen. There again seen findings o f a prior ACL repair. There is a benign-appearing cyst in the tibial plateau. JOINTS: There is moderate narrowing of the medial femoral tibial joint. Small osteophytes are seen i n the posterior patella. There is a very small joint effusion. No loose body. SOFT TISSUE: Normal. IMPRESSION: Mild degenerative changes seen in the left knee. DATA REPOSITORY: RADIATION DOSE DELIVERED:
== END 2024-11-09 15:38 | disposition home or self-care (01) ==
LOC: DIORS 15:38
PROVIDERS: PCP Family Medicine; Visit Provider Student in an Organized Health Care Education/Training Program
DX: S83.512D Sprain of anterior cruciate ligament of left knee, subsequent encounter (principal); X58.XXXD Exposure to other specified factors, subsequent encounter
CPT/HCPCS: 73560

== ENCOUNTER 2025-01-14 15:25 | Emergency (ER) | payer MEDICAID, SELFPAY ==
[2025-01-14 15:36] VITALS: BP 115/78; PULSE 112; RESP 16; TEMP 36.9; O2SAT 95
--- NOTE | 2025-01-14 15:51 | W.ED.GENAD ---
Discharge Plan Disposition Condition: Stable Discharge Details Chief Complaint: PsychEval Clinical Impression: Psychosis, Delusions, Paranoid Primary Care Provider: Sophia Kelsey ED Provider: Jamie Haile Bolt Meds and New Rx's Prescriptions: No Action lisdexamfetamine [Vyvanse] 40 mg capsule 50 mg PO DAILY Patient Comments: pt states dose is 60mg 02/07/24 triamcinolone acetonide 0.025 % cream 1 applic topical DAILY PRN (Reason: rash) Qty: 15 0RF Rx Instructions: apply 0.25gm to face daily prn seborrhea methadone 10 mg/5 mL solution 125 mg PO Q6H clonidine HCl 0.2 mg tablet 0.2 mg PO DAILY PRN Rx Instructions: Last RX'd by Patricia [place] October 2022 melatonin 3 mg capsule 6 mg PO HS PRN Rx Instructions: [facility] [place]. gabapentin 300 mg capsule 300 mg PO TID Rx Instructions: Last RX'd by Dor[facility] [place] on 11/19/2022. -hb testosterone cypionate 200 mg/mL oil 200 mg IM Q2W Qty: 1 5RF Patient Comments: per [facility] was last filled on 03/05, pt states he hasn't taken yet, last picked up 02/10, 01/20, 01/06, 12/01 lisinopril 10 mg tablet 10 mg PO DAILY Qty: 90 3RF quetiapine [Seroquel XR] 300 mg tablet extended release 24 hr 300 mg PO DAILY quetiapine [Seroquel XR] 300 mg tablet extended release 24 hr 600 mg PO QHS venlafaxine 225 mg tablet extended release 24hr 225 mg PO DAILY sulfasalazine 500 mg tablet 1 g PO BID Rx Instructions: give with food (meal/snack) HPI General Mode of arrival: ambulatory. Date/Time Provider Initiated Documentation: 01/14/25 15:42. Limitations to Documentation: no limitations. Information obtained by: patient, family and RN notes reviewed. HPI Narrative: Patient brought to ED on a mental health warrant for emergency evaluation. I have reviewed the warrant, interviewed the father with whom the patient lives, interviewed and examined the patient. Patient has previous psychiatric diagnosis as well as substance abuse problem. Has been followed locally by [facility] but per the father has only been getting medications and has been refusing to go to any type of therapy appointments. It is unclear whether he takes his medications as he is supposed to. Father states that he typically does not. As of late patient has become more paranoid and is having both visual and auditory hallucinations. He is convinced there are little people in and around his house, stealing his medication, trying to hurt him and his parents. At one point recently has barricaded his parents out of their own house. While outside the room interviewing his father I could hear patient in his room having a full conversation with no one. Father reports that this is becoming a common occurrence and that he sits at the table for hours having conversations. Patient at this time is cooperative. He denies any physical complaint. He understands that he is here on a warrant. Related Data Home Medications ?Medication ?Instructions ?Recorded ?Confirmed clonidine HCl 0.2 mg tablet 0.2 mg PO DAILY PRN 12/04/22 12/08/24 gabapentin 300 mg capsule 300 mg PO TID 12/04/22 12/08/24 melatonin 3 mg capsule 6 mg PO HS PRN 12/04/22 12/08/24 triamcinolone acetonide 0.025 % 1 applic topical DAILY PRN rash 08/06/23 12/08/24 topical cream #15 grams quetiapine 300 mg tablet,extended 300 mg PO DAILY 02/09/24 12/08/24 release 24 hr (Seroquel XR) quetiapine 300 mg tablet,extended 600 mg PO QHS 02/09/24 12/08/24 release 24 hr (Seroquel XR) sulfasalazine 500 mg tablet 1 g PO BID 02/09/24 12/08/24 venlafaxine 225 mg tablet,extended 225 mg PO DAILY 02/09/24 12/08/24 release 24 hr lisdexamfetamine 40 mg capsule 50 mg PO DAILY 04/30/24 12/08/24 (Vyvanse) testosterone cypionate 200 mg/mL 200 mg IM Q2W #1 mL 07/20/24 12/08/24 intramuscular oil methadone 10 mg/5 mL oral solution 125 mg PO Q6H 11/09/24 12/08/24 lisinopril 10 mg tablet 10 mg PO DAILY #90 tabs 11/29/24 12/08/24 Previous Rx's ?Medication ?Instructions ?Recorded triamcinolone acetonide 0.025 % 1 applic topical DAILY PRN rash 08/06/23 topical cream #15 grams testosterone cypionate 200 mg/mL 200 mg IM Q2W #1 mL 07/20/24 intramuscular oil lisinopril 10 mg tablet 10 mg PO DAILY #90 tabs 11/29/24 Allergies Allergy/AdvReac Type Severity Reaction Status Date / Time No Known Allergies Allergy Verified 11/09/24 14:25 General Stated Complaint: PsychEval PACO: 2 Review of Systems Unobtainable due to mental condition Exam Narrative Exam Narrative: Const: WDWN male unkempt, disheveled but in NAD. VS per triage. HEENT: NC/AT. Normal facial exam. Neck: Supple. Trachea midline. Lungs: Normal respiratory effort. Lungs are clear. Cor: RRR without murmur. Good radial pulses. GI: Soft/ND/NT. Neuro: A+O x 2. Normal speech. Cranial nerves II - XII grossly intact. No gross motor or sensory deficit. Ext: No C/C/E. Psych: paranoid and delusional with hallucinations, having conversations with people not present, unaware of the date Course Vital Signs Vital signs: Vital Signs Temperature 98.5 F 01/14/25 15:36 Pulse 112 H 01/14/25 15:36 Respiratory Rate 16 01/14/25 15:36 Blood Pressure 115/78 01/14/25 15:36 Pulse Oximetry 95 01/14/25 15:36 Temperature 98.5 F 01/14/25 15:36 Temperature Source Oral 01/14/25 15:36 Pulse 112 H 01/14/25 15:36 Respiratory Rate 16 01/14/25 15:36 Blood Pressure 115/78 01/14/25 15:36 Blood Pressure Position Supine 01/14/25 15:36 Pulse Oximetry 95 01/14/25 15:36 Oxygen Delivery Method Room Air 01/14/25 15:36 Oxygen Flow Rate 0 01/14/25 15:36 Pain Level 0 01/14/25 15:36 Medical Decision Making Patient presents to ED on a mental health warrant. He is here with his father. I have reviewed the warrant, interviewed the father, interviewed the patient. Patient is exhibiting psychosis with hallucinations, paranoia and delusions which are now affecting his ability to care for himself with lack of showering, eating, sleeping. Recently barricaded his parents out of the house. Becoming more more paranoid and obsessed with the little people that he sees and hears. Is having hallucinations here and actively having conversations with no one. He is cooperative. He does seem to understand he is here on a warrant. He has agreed to blood draw and EKG. Patient's laboratory studies are unremarkable. His urine drug screen is positive for methadone and tricyclics. Alcohol, aspirin, acetaminophen are all negative. While patient had no problem with getting the blood draw he does not want the EKG. Will continue trying to obtain this given his use of methadone and reported prolonged QT. He was evaluated by mental health. After discussion with mental health we will place the patient on a hold for second cert and involuntary psychiatric admission. I have made the patient aware of this. He has agreed to EKG with me but continues to put it off. He has also agreed to take medication to help calm him down as he is quite anxious now. He was written for 1 mg of Ativan orally and 10 mg of Zyprexa orally. Patient still refusing EKG, seems very paranoid about having it done. Has been moved back to Zone [facility]. He is requesting his night time medications of seroquel, melatonin and gabapentin. This have been ordered. Will continue to try to get EKG. Signed out pending second certification. Medical Records Medical records reviewed: Yes I reviewed the patient's medical records. Medical records narrative: mental health warrant filed by [facility] Lab Data Lab results reviewed: Yes I reviewed the patient's lab results. Lab results narrative: see MDM Quality:SDOH Health Related Social Needs: Health related social needs problems related to housing/economic circumstances (Z59.89), problems with daily activities (Z73.9), feeling lonely/isolated (Z60.8) [facility] All Active Problems (Updated 01/14/25 @ 17:31 by Jamie Haile MD) Paranoid (Acute) Delusions (Acute) Psychosis (Acute) No-show for appointment (Acute) Pill dysphagia (Acute) Obesity, Class I, BMI 30-34.9 (Acute) Chronic left shoulder pain (Acute) Hypogonadism, male (Chronic 03/24/18) Prior appt Dr. Charles at [facility] in [place], lost to FU; testosterone gel not effective, IM injections with improved levels Tobacco abuse (Chronic 11/19/17) 1 ppd Major depressive disorder, recurrent, severe with psychotic symptoms (Chronic) H/o Hospitalization at [facility]; psych meds managed through [facility]. Seborrheic dermatitis (Acute) Left ACL tear (Acute) Derangement of medial meniscus of left knee due to old injury (Acute) Medical History Opioid dependence in remission using Suboxone through [facility]. Hypertension Hx of cardiomyopathy Polysubstance abuse QT prolongation Closed right ankle fracture (~09/2019) Alcohol abuse ADD (attention deficit disorder) Surgical History S/P ACL reconstruction (2022) S/P hernia repair Family History Mother Diabetes Cancer thyroid cancer Father Diabetes Essential hypertension Paternal Grandfather No problems noted. Maternal Grandfather Stroke Paternal Uncle Cancer stomach cancer Other Family history of diabetes mellitus (DM) Social History Smoking/Tobacco Use Status: Current every day Tobacco Type: cigarettes Quit status: considering quitting Counseling given: provider counseling Smoking risk assessment performed?: Yes Alcohol Intake: former Year quit: 2021 Counseling given: Yes Drug use: Current Sobriety Substance use type: does not use Counseling provided: treatment program Details: Pt. states its been years since use. 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
[2025-01-14 16:25] LABS: Abs Immature Grans 0.02 10^3/uL (0.0-0.06); Absolute Basophil Count 0.05 10^3/uL (0.0-0.2); Absolute Eosinophil Count 0.22 10^3/uL (0.0-0.7); Absolute Lymphocyte Count 3.46 10^3/uL (1.2-3.4); Absolute Monocyte Count 0.65 10^3/uL (0.1-0.8); Absolute Neutrophil Count 4.42 10^3/uL (1.2-6.7); Basophils % 0.6 %; Eosinophils % 2.5 %; HCT 46.8 % (40.0-50.0); HGB 15.3 g/dL (13.5-17.5); Immature Grans % 0.2 %; Lymphocytes % 39.2 %; MCH 28.6 pg (27.0-33.0); MCHC 32.7 % (32.0-36.0); MCV 88 fL (80-95); Monocytes % 7.4 %; Neutrophils % 50.1 %; Platelet Count 259 10^3/uL (130-400); RBC 5.35 10^6/uL (4.36-5.78); RDW 13.1 % (11.8-14.1); RDW-SD 41.8 fL; WBC 8.82 10^3/uL (4.4-10.8)
[2025-01-14 17:03] LABS: Tricyclic Antidepressants Positive (Negative)
[2025-01-14 17:05] LABS: *AMPHETAMINES SCREEN URINE Negative (Negative); *BARBITURATES SCREEN URINE Negative (Negative); *BENZODIAZEPINES SCREEN URINE Negative (Negative); Cannabinoids THC Negative (Negative); Cocaine Screen,Urine Negative (Negative); METHADONE URINE SCREEN Positive (Negative); OPIATES URINE SCREEN Negative (Negative)
[2025-01-14 17:05] LABS: ALT 35 U/L (16-63); AST 16 U/L (15-37); Albumin 3.6 g/dL (3.4-5.0); Alkaline Phosphatase 93 U/L (46-116); Anion Gap 8.3 mmol/L (3-11); BUN 32 mg/dL (7-18); Bilirubin, Total 0.1 mg/dL (0.2-1.0); CO2 28.7 mmol/L (21.0-32.0); Calcium 9.3 mg/dL (8.5-10.1); Chloride 106 mmol/L (98-107); Estimated GFR 95.18 (mL/min/1.73m2); Glucose 103 mg/dL (74-106); Potassium 4.5 mmol/L (3.5-5.1); Sodium 143 mmol/L (136-145); Total Protein 7.3 g/dL (6.4-8.2)
[2025-01-14 17:08] LABS: Salicylate 4.2 mg/dL (<2.8)
[2025-01-14 17:10] LABS: Acetaminophen < 2 ug/mL (10-30)
[2025-01-14 17:11] LABS: ETHANOL BLOOD < 3.0 mg/dL (<10)
[2025-01-14] MEDS: OLANZapine ODT 5 MG TAB 10 MG PO (18:06)
[2025-01-14] MEDS: LORazepam 1 MG TAB PO (18:06)
--- NOTE | 2025-01-14 18:20 | PDOC.MHCN ---
Date of service: 01/14/25 Time of Service: 18:20 Mental Health Emergency Note Release [facility] release signed:: Yes Reason for Visit The client is well known to [facility]' MASTICATOR program. He was last seen on 01.11.25 by the ES team and has been noncompliant with his appointments. He has a new keycase assembler on the AO team, Erik who is also a Veterans keycase assembler so when the client is feeling better, he would benefit from his knowledge of [employer] benefits. He was last hospitalized about a year ago at [facility] and prior at numerous times. Screening tools were unable to be completed due to the client's current mental state. They were attempted and he respectfully asked if he needed to answer them, at the same time he was observed responding to internal stimuli while being asked requiring them needing to be asked more than once. 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 Access to means: Yes. Types of Means: Other weapons and Medication. Counseling provided: Yes Risk: High Risk Asssessment/Mental Status Appearance: Poor hygiene Attitude: Cooperative and Friendly Behavior: Unremarkable Speech: Normal, Loud (When responding to internal stimuli. ) and Incoherent (When responding to internal stimuli. ) Affect: Flat Mood: Anxious Thought process: Flight of ideas and Tangential Hallucinations: yes, ( Won't eat meals as he believes his father is defecating and urinating in his meals. It is not clear if this is due to olfactory or gustatory hallucinations. ) Visual and Auditory Delusions: yes, Persectory/Paranoid Attention: Poor concentration Perception: Derealization Orientation: Disoriented in Time and Situation Memory: Impaired in: Recent and Remote Insight: Poor Judgement: Poor Neurovegetative Symptoms Sleep: Decrease (The client has switched his sleep cycle today due to paranoia and delusions. ) Appetitie: Disordered (Only eats yogurt, peanut butter, bread and milk ) Interests: Decrease Energy: Decrease Libido: Not applicable Substance Use: Do you use nicotine?: Yes Have you used substances in the last 7 days?: No Additional Issues: Assaultive/Threatening Behavior: No Medical Concerns: No Client engaged in active self harm w/weapon: No Threatening to run away: No Child reported abuse/neglect: No Voluntarily presenting for services: No Domestic violence is a concern: No Extreme Psychosis or extreme behavior is present: Yes Impression The client is a 43-year-old, single, male who receives services through the MASTICATOR program with [facility]. He lives with his parents in [facility]. The client denied SI and HI today but by hx has had SI with plan and intent and done self-harming things (cutting, jumping into river when he cannot swim). He could not attend to any screening tools today due to his level of hallucinations. All underrepresented categories were honored in this assessment. He was last hospitalized per his report last year at [facility]. The client presents sitting on his bed with his father at bedside. He stated he could not talk without water and handed this clinician his cup for more water which was filled. The client is a middle-aged man with long brown hair and a long martinez that resembles the traditionary depiction of Jaycob. He has tattoos on his arms. He makes fair eye contact but is not able to focus continuously to screening tools without bursting out in response to his hallucinations. each time he is loud or swears he apologies for his actions. Examples of his outbursts include you can't trust little people like that because they are bullies. They steal my medications and sell them, and they get on my phone when I am asleep and go onto sites that are not okay. When asked if he could describe the little people in reference to how many or size he could not only saying they are LITTLE. I'm not going to answer your fucking questions! Then looking at this clinician I'm not talking to you in a sympathetic tone. This was his response when asked about natural supports. When asked about his medications and if he is taking them, he responded he was and when asked if he felt they were working he responded with I believe they are what they are. His father then asked about his continued responses when he gets them about how he believes his Methadone is Robitussin and his psychiatric meds have been tampered with. The client agreed to his father's statement. At one point the client was observed looking over his left shoulder toward the floor and pointing and then for about a minute before being interrupted moving his mouth as if he were talking to someone and when asked about it, he stated he was just trying to get a message across. When asked what the message was, he stated Whomever doubts me. When asked whose message it was, he stated mine. This was asked to see if he was having any mandaeism delusions which did not present today. The client reports that he has not been eating well and notates eating only peanut butter, yogurt, milk and bread. He stated he sleeps well but had to change his sleep cycle but could not identify why. Per reports of his parents, he has been up all night due to his paranoia, delusions and hallucinations at times keeping them up all night. when the client was asked if he was hearing or seeing things that others could not, he responded with I have no idea. Plan/Disposition Recommended Disposition: Hospitalization (referrals sent to all [place] hospitals via [facility] and ES note. ) facilities contacted. Plan: It is this clinician's professional opinion that this client is a person in need of treatment in a secured facility to stabilize his symptoms that he has been struggling with for a while and initially he was seeking treatment himself but the longer he waited he would want to leave, and ES did not have enough to hold him involuntarily. If this client were to leave the hospital without the proper treatment this clinician believes that he will eventually, time unknown, unintentionally, harm his elderly parents whom he lives with as he does not leave the house. Person reported agreement to plan: No Reports/communication Outcome discussed with: ED/Personnel
--- NOTE | 2025-01-14 19:40 | NUR.NOTE ---
this RN attempted several times to get an EKG and the PT refuses. PT states that the EKG is predetermined and that we are going to turn in a false EKG. PT was reassured that this would not happen several times and is still refusing the EKG. Nursing Note:
[2025-01-14] MEDS: QUEtiapine 300 MG TAB 600 MG PO (20:11)
[2025-01-14] MEDS: Melatonin 3 MG TAB 6 MG PO (20:12)
[2025-01-14] MEDS: Gabapentin 300 MG CAP PO (20:12)
--- NOTE | 2025-01-15 06:02 | ED.PROG_ITS ---
Date of service: 01/14/25 Time of Service: 23:00 Medical Decision Making This patient was signed out to me. Please see previous notes for H&P and initial eval. In brief, 44yo M presenting with psychosis, medically cleared. EEd pending 2nd cert. Overnight appeared to be sleeping. Woke around 0530, requesting to leave. I reviewed with Mr. Pineda his involuntary status at his time and that he will speak with a psychiatrist today. He requested his home medications which were ordered. Methadone dose verfied with [facility] clinic by nursing. Will be signed out to oncoming physician; plan remains as above. Quality:SDOH Health Related Social Needs: Health related social needs problems related to housin g/economic circumstances (Z59.89), problems with daily activities (Z73.9), feeling lonely/isolated (Z60.8) Discharge Plan Disposition Condition: Stable Discharge Details Chief Complaint: PsychEval Clinical Impression: Psychosis, Delusions, Paranoid Primary Care Provider: Sophia Kelsey ED Provider: Cathy Thorpe Home Meds and New Rx's Prescriptions: No Action lisdexamfetamine [Vyvanse] 40 mg capsule 50 mg PO DAILY Patient Comments: pt states dose is 60mg 02/07/24 triamcinolone acetonide 0.025 % cream 1 applic topical DAILY PRN (Reason: rash) Qty: 15 0RF Rx Instructions: apply 0.25gm to face daily prn seborrhea methadone 10 mg/5 mL solution 155 mg PO ONCE clonidine HCl 0.2 mg tablet 0.2 mg PO DAILY PRN Rx Instructions: Last RX'd by Patricia Hackett October 2022 melatonin 3 mg capsule 6 mg PO HS PRN Rx Instructions: Last RX'd by [place] [facility]. gabapentin 300 mg capsule 300 mg PO TID Rx Instructions: Last RX'd by [facility] on 11/19/2022. -hb testosterone cypionate 200 mg/mL oil 200 mg IM Q2W Qty: 1 5RF Patient Comments: per [facility] was last filled on 03/05, pt states he hasn't taken yet, last picked up 02/10, 01/20, 01/06, 12/01 lisinopril 10 mg tablet 10 mg PO DAILY Qty: 90 3RF quetiapine [Seroquel XR] 300 mg tablet extended release 24 hr 300 mg PO DAILY quetiapine [Seroquel XR] 300 mg tablet extended release 24 hr 600 mg PO QHS venlafaxine 225 mg tablet extended release 24hr 225 mg PO DAILY sulfasalazine 500 mg tablet 1 g PO BID Rx Instructions: give with food (meal/snack)
[2025-01-15] MEDS: Methadone Liquid 10 MG/ML 155 MG PO (07:11)
[2025-01-15] MEDS: Lisinopril 10 MG TAB PO (07:42)
[2025-01-15] MEDS: Venlafaxine 150 MG CAPCR 300 MG PO (07:42)
[2025-01-15] MEDS: Gabapentin 300 MG CAP PO ×3 (07:42→19:17)
[2025-01-15 08:48] VITALS: BP 121/88; PULSE 90; RESP 18; TEMP 36.8; O2SAT 97
--- NOTE | 2025-01-15 08:51 | CMSP_ITS ---
Date of service: 01/15/25 Time of Service: 08:51 Care Management Safety Plan Status Status: Involuntary Reason for Wait Reason for Wait: Inpatient Admission and Assessment/Screening (second certification pending) Safety Plan Safety Plan: INVOLUNTARY FOR INPATIENT PSYCHIATRIC STABILIZATION.? Patient is appropriate in all interactions since arriving at [facility]; Pt has demonstrated appropriate coping and communication skills, has articulated his or her needs and concerns and is fully engaged during staff interactions. Safety plan has been established with patient, and care team, to adhere to patient goals, identify restrictions based on behavioral status, address nutrition, and determine allowed personal belongings, tools for hygiene and p ersonal care. Determine level of activity including ambulation, level of supervision, visitors, and determine privileges based on behaviors and level of engagement by pt. SAFETY PLAN: 1. Will remain on suicide precautions, in paper clothes 2. Will remain in Zone B under direct supervision of one-on-one staff at all times provided by [employer]; JAYDEN, TRANSMISSION SYSTEMS OPERATOR jet dyeing machine operator. 3. May have paper cups, plates, finger foods as well as a cardboard spoon with which to eat meals. 4. Follow [facility] Management of the Admitted Behavioral Health Patient policy. 5. Shower available in Zone B without restriction. 6. Personal belongings-soft items permitted at RN discretion. 7. Visitors- at RN discretion. 8. Activities: soft cart items, [facility] tablets, approved per RN discretion. 9.? Bathroom available in Zone B without restriction. 10. Phone: limited to [facility] cordless phone at RN discretion. Due to INVOLUNTARY status, patient is being held at [facility] by the Department of Mental Health ([facility]) until 2nd certification by [facility] Psychiatrist can be performed (within 24 hours). Staff will provide de-escalation support (CPI) as needed. If patient wishes to leave [facility], staff will contact [facility] Crisis Screener ([phone]) and General Purchasing Agent ([phone]) as soon as possible. In the event of elopement, notify [place] [employer] ([phone]). Patient is currently involuntarily at [facility]. [facility] Frontline Carbon Accountant will continue seeking placement. Please contact the General Purchasing Agent for any needed changes to Safety Plan. Safety plan has been provided to interdepartmental care team. Patient will be transported by [employer] at time of discharge.
--- NOTE | 2025-01-15 08:51 | PDOC.CMSAFE ---
Date of service: 01/15/25 Time of Service: 08:51 Care Management Safety Plan Status Status: Involuntary Reason for Wait Reason for Wait: Inpatient Admission and Assessment/Screening (second certification pending) Safety Plan Safety Plan: INVOLUNTARY FOR INPATIENT PSYCHIATRIC STABILIZATION.? Patient is appropriate in all interactions since arriving at [facility]; Pt has demonstrated appropriate coping and communication skills, has articulated his or her needs and concerns and is fully engaged during staff interactions. Safety plan has been established with patient, and care team, to adhere to patient goals, identify restrictions based on behavioral status, address nutrition, and determine allowed personal belongings, tools for hygiene and personal care. Determine level of activity including ambulation, level of supervision, visitors, and determine privileges based on behaviors and level of engagement by pt. SAFETY PLAN: 1. Will remain on suicide precautions, in paper clothes 2. Will remain in Zone B under direct supervision of one-on-one staff at all times provided by [employer]; JAYDEN, CLINICAL TRAINER railroad wheels and axle inspector. 3. May have paper cups, plates, finger foods as well as a cardboard spoon with which to eat meals. 4. Follow [facility] Management of the Admitted Behavioral Health Patient policy. 5. Shower available in Zone B without restriction. 6. Personal belongings-soft items permitted at RN discretion. 7. Visitors- at RN discretion. 8. Activities: soft cart items, [facility] tablets, approved per RN discretion. 9.? Bathroom available in Zone B without restriction. 10. Phone: limited to [facility] cordless phone at RN discretion. Due to INVOLUNTARY status, patient is being held at [facility] by the Department of Mental Health ([facility]) until 2nd certification by [facility] Psychiatrist can be performed (within 24 hours). Staff will provide de-escalation support (CPI) as needed. If patient wishes to leave [facility], staff will contact [facility] Crisis Screener ([phone]) and Confidential Secretary ([phone]) as soon as possible. In the event of elopement, notify [place] [employer] ([phone]). Patient is currently involuntarily at [facility]. [facility] Frontline Software Deployment Engineer will continue seeking placement. Please contact the Confidential Secretary for any needed changes to Safety Plan. Safety plan has been provided to interdepartmental care team. Patient will be transported by business coordinator at time of discharge.
--- NOTE | 2025-01-15 08:53 | PDOC.CMPRO ---
Date of service: 01/15/25 Time of Service: 08:53 Care Management Progress Note Progress Note Text Progress Note Text: CM met with ED staff to discuss Dangelo's plan of care. Per RN, Dangelo has been appropriate, although easily overwhelmed; RN has attempted to maintain an environment to help him remain calm and avoid over stimulation. Per report, he is taking his medications as prescribed without issue; he takes his pills in pudding due to pill dysphagia. He has asked that his parents do not visit while he is here, as he stated he doesn't want them to see him like this. Per report, he lives with his aging parents, who are his primary supports. Per [facility], Dangelo had his second certification this morning, which was upheld. At his second daily assessment, he was sleeping, but engaged with the clinician for a short time. Per report, he has been expressing severe paranoia and delusions in the community, particularly surrounding his food being poisoned and there being snakes and spiders in his bedroom. He has reported that little people talk to him, and some appear to be more aggressive than others. Per report, he appeared to be devolving in the community, which is why he was brought in on a MH warrant. 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 Dangelo is involuntary, being held for inpatient psychiatric treatment. Referrals have been sent to hospitals. Safety plan in place; CM will continue to follow. Social Determinants of Health Screening Social Determinants of Health last assessed: 01/15/25 Will the Patient Participate in the Screening?: Yes Do you worry about having a steady place to live?: no Problems where you live: no known problems In the past 12 months, have you had to go without electric, gas, oil or water in your home?: no Have you or anyone in your house had to go without enough food to eat?: no Has lack of transportation kept you from medical appointments or from doing things needed for daily living?: no Has anyone in your life made you feel unsafe or unsupported?: no How hard is it for you to pay for the very basics like food, housing, medical care, and heating? Would you say it is:: Very hard Do you want help finding or keeping work or a job?: I do not need or want help If for any reason you need help with day-to-day activities such as bathing, preparing meals, shopping, managing finances, etc., do you get the help you need?: I could use a little more help How often do you feel lonely or isolated from those around you?: Sometimes Do you speak a language other than Albanian at home?: No Does the patient want assistance with any of the above?: No Health Related Social Needs Health related social needs: problems related to housing/economic circumstances (Z59.89), problems with daily activities (Z73.9) and feeling lonely/isolated (Z60.8)
[2025-01-15] MEDS: cloNIDine 0.1 MG TAB 0.2 MG PO ×2 (11:10→18:28)
--- NOTE | 2025-01-15 13:01 | MHPN_ITS ---
Date of service: 01/15/25 Time of Service: 09:00 PHQ-9 Over the last 2 weeks, how often have you been bothered by any of the following problems? 1. Little interest or pleasure in doing things: not at all 2. Feeling down, depressed, or hopeless: several days 3. Trouble falling or staying asleep, or sleeping too much: several days 4. Feeling tired or having little energy: not at all 5. Poor appetite or overeating: several days 6. Feeling bad about yourself - or that you are a failure or have let yourself and your family down: not at all 7. Trouble concentrating on things, such as reading the newspaper or watching television: several days 8. Moving or speaking so slowly that other people could have noticed? - Or the opposite - being so fidgety or restless that you have been moving around a lot more than usual: several days 9. Thoughts that you would be better off or of hurting yourself in some way: not at all Total score: 5 Source: Developed by Drs. Jamie Gustafson, Violeta Sorenson, Perry Dwyer and colleagues, with an educational didi from [employer]. Suicide Severity Rate CSSRS Have you wished you were or wished you could go to sleep and not wake up?: No Have you actually had any thoughts of killing yourself?: No CSSRS2 Have you been thinking about how you might do this?: No Have you had these thoughts and had some intention of acting on them?: No Have you started to work out or worked out the details of how to kill yourself? 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 Access to means: Yes. Types of Means: Medication. Details: medication as he will not let anyone near them . Counseling provided: Yes Risk: Moderate Risk Duty to warn indicated: No Asssessment/Mental Status Appearance: Other (paper scrubs) Attitude: Guarded Behavior: Poor impulse control and Agitated Speech: Soft and Hesitant Affect: Constricted Mood: Anxious and Irritable Thought process: Loose associations and Poverty of content Hallucinations: yes, Auditory Delusions: yes, Persectory/Paranoid Attention: Poor concentration Perception: Not impaired Orientation: Fully orientated Memory: Impaired in: Recent Insight: Poor Judgement: Poor Neurovegetative Symptoms Sleep: Decrease Appetitie: Decrease Interests: Decrease Energy: No change Libido: Not applicable Substance Use: Other (no longer consumes alcohol) Drug Issues: Other (in the past but takes methadone now) Do you use nicotine?: Yes Have you used substances in the last 7 days?: No Additional Issues: Assaultive/Threatening Behavior: Yes Medical Concerns: No Client engaged in active self harm w/weapon: No Threatening to run away: No Child reported abuse/neglect: No Voluntarily presenting for services: No Domestic violence is a concern: No Extreme Psychosis or extreme behavior is present: Yes Impression Due to this clients level ob mental instability he needs are best served through hospitalization to address hallucinations and delusions Plan/Disposition Recommended Disposition: Hospitalization facilities contacted. Plan: Awaiting to go inpatient Person reported agreement to plan: No Reports/communication Outcome discussed with: ED/Personnel and Other ([facility] Health Technician)
[2025-01-15] MEDS: hydrOXYzine HCL 25 MG TAB 50 MG PO (14:13)
--- NOTE | 2025-01-15 15:30 | RT.EKG_ITS ---
APPROVED REPORT Exam: Resting ECG Reason for Exam: medications Patient Location: E HR:106 bpm ECG Measurements Heart Rate [address] 145 P 54 QRSd 94 QRS 37 QT 367 T -81 QTc 489 Conclusion Sinus tachycardia...rate> 99 Nonspecific T abnormalities, diffuse leads...T <-0.10mV, ant/lat/inf Physician: no stemi. QT Stable
--- NOTE | 2025-01-15 15:33 | W.EDPROG ---
Date of service: 01/15/25 Time of Service: 15:33 Medical Decision Making Patient signed out to me pending placement. Second certification was completed. Patient did require clonidine for anxiety and hydroxyzine. Order was placed for clonidine twice daily, may benefit from hydroxyzine if anxiety persist. Pending placement. Quality:SDOH Health Related Social Needs: Health related social needs problems related to housing/economic circumstances (Z59.89), problems with daily activities (Z73.9), feeling lonely/isolated (Z60.8) Discharge Plan Disposition Condition: Stable Discharge Details Chief Complaint: PsychEval Clinical Impression: Psychosis, Delusions, Paranoid Primary Care Provider: Sophia Kelsey ED Provider: Win Gleason Home Meds and New Rx's Prescriptions: No Action lisdexamfetamine [Vyvanse] 40 mg capsule 50 mg PO DAILY Patient Comments: pt states dose is 60mg 02/07/24 triamcinolone acetonide 0.025 % cream 1 applic topical DAILY PRN (Reason: rash) Qty: 15 0RF Rx Instructions: apply 0.25gm to face daily prn seborrhea methadone 10 mg/5 mL solution 155 mg PO DAILY clonidine HCl 0.2 mg tablet 0.2 mg PO BID PRN Rx Instructions: Last RX'd by [facility] [place] October 2022 melatonin 3 mg capsule 6 mg PO HS PRN Rx Instructions: Last RX'd by [facility] [place]. gabapentin 300 mg capsule 300 mg PO TID Rx Instructions: Last RX'd by [facility] [place] on 11/19/2022. -hb testosterone cypionate 200 mg/mL oil 200 mg IM Q2W Qty: 1 5RF Patient Comments: per [facility] was last filled on 03/05, pt states he hasn't taken yet, last picked up 02/10, 01/20, 01/06, 12/01 lisinopril 10 mg tablet 10 mg PO DAILY Qty: 90 3RF quetiapine [Seroquel XR] 300 mg tablet extended release 24 hr 300 mg PO DAILY quetiapine [Seroquel XR] 300 mg tablet extended release 24 hr 600 mg PO QHS sulfasalazine 500 mg tablet 1 g PO BID Rx Instructions: give with food (meal/snack) venlafaxine 150 mg capsule,extended release 24hr 300 mg PO DAILY
--- NOTE | 2025-01-15 17:58 | W.EDPROG ---
Date of service: 01/15/25 Time of Service: 17:58 Medical Decision Making Patient signed out to me on EE status and apparently had second CERT completed. No new acute problems though he still not agreeing to have an EKG done, nursing is still trying to give him some neurologist do this to check his QT. Will continue to monitor until safe disposition found Quality:SDOH Health Related Social Needs: Health related social needs problems related to housing/economic circumstances (Z59.89), problems with daily activities (Z73.9), feeling lonely/isolated (Z60.8) Discharge Plan Disposition Condition: Stable Discharge Details Chief Complaint: PsychEval Clinical Impression: Psychosis, Delusions, Paranoid Primary Care Provider: Sophia Kelsey ED Provider: Torrey Tse [place] Meds and New Rx's Prescriptions: No Action lisdexamfetamine [Vyvanse] 40 mg capsule 50 mg PO DAILY Patient Comments: pt states dose is 60mg 02/07/24 triamcinolone acetonide 0.025 % cream 1 applic topical DAILY PRN (Reason: rash) Qty: 15 0RF Rx Instructions: apply 0.25gm to face daily prn seborrhea methadone 10 mg/5 mL solution 155 mg PO DAILY clonidine HCl 0.2 mg tablet 0.2 mg PO BID PRN Rx Instructions: Last RX'd by [facility] October 2022 melatonin 3 mg capsule 6 mg PO HS PRN Rx Instructions: Last RX'd by [facility]. gabapentin 300 mg capsule 300 mg PO TID Rx Instructions: [facility]. -hb testosterone cypionate 200 mg/mL oil 200 mg IM Q2W Qty: 1 5RF Patient Comments: per [facility] was last filled on 03/05, pt states he hasn't taken yet, last picked up 02/10, 01/20, 01/06, 12/01 lisinopril 10 mg tablet 10 mg PO DAILY Qty: 90 3RF quetiapine [Seroquel XR] 300 mg tablet extended release 24 hr 300 mg PO DAILY quetiapine [Seroquel XR] 300 mg tablet extended release 24 hr 600 mg PO QHS sulfasalazine 500 mg tablet 1 g PO BID Rx Instructions: give with food (meal/snack) venlafaxine 150 mg capsule,extended release 24hr 300 mg PO DAILY
--- NOTE | 2025-01-15 18:13 | MHPN_ITS ---
Date of service: 01/15/25 Time of Service: 03:15 PHQ-9 Over the last 2 weeks, how often have you been bothered by any of the following problems? 1. Little interest or pleasure in doing things: not at all 2. Feeling down, depressed, or hopeless: several days 3. Trouble falling or staying asleep, or sleeping too much: several days 4. Feeling tired or having little energy: not at all 5. Poor appetite or overeating: several days 6. Feeling bad about yourself - or that you are a failure or have let yourself and your family down: not at all 7. Trouble concentrating on things, such as reading the newspaper or watching television: several days 8. Moving or speaking so slowly that other people could have noticed? - Or the opposite - being so fidgety or restless that you have been moving around a lot more than usual: several days 9. Thoughts that you would be better off or of hurting yourself in some way: not at all Total score: 5 Source: Developed by Drs. Jamie Gustafson, Violeta Sorenson, Perry Dwyer and colleagues, with an educational didi from [employer]. Suicide Severity Rate CSSRS Have you wished you were or wished you could go to sleep and not wake up?: No Have you actually had any thoughts of killing yourself?: No CSSRS2 Have you been thinking about how you might do this?: No Have you had these thoughts and had some intention of acting on them?: No Have you started to work out or worked out the details of how to kill yourself? 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 Access to means: Yes. Types of Means: Medication. Details: when at home due to not letting his parents even look at his meds . Counseling provided: Yes Risk: Moderate Risk Duty to warn indicated: No Asssessment/Mental Status Appearance: Other (paper scrubs) Attitude: Guarded and Friendly Behavior: Poor impulse control, Agitated and Repetitive movements Speech: Soft and Slow Affect: Constricted and Flat Mood: Stressed, Anxious and Irritable Thought process: Poverty of content Hallucinations: yes, Auditory Delusions: yes, Persectory/Paranoid Attention: Poor concentration Perception: Not impaired Orientation: Fully orientated Memory: Impaired in: Recent Insight: Poor Judgement: Poor Neurovegetative Symptoms Sleep: Increase Appetitie: Increase Interests: No change Energy: No change Libido: Not applicable Substance Use: Other (former alcoholic) Drug Issues: Other (former substance user) Do you use nicotine?: Yes Have you used substances in the last 7 days?: No Additional Issues: Assaultive/Threatening Behavior: Yes Medical Concerns: No Client engaged in active self harm w/weapon: No Threatening to run away: No Child reported abuse/neglect: No Voluntarily presenting for services: No Domestic violence is a concern: No Extreme Psychosis or extreme behavior is present: Yes Impression client suffering from delusional thoguth and auditory hallucinations, hearing commanding voices Plan/Disposition Recommended Disposition: Hospitalization facilities contacted. Plan: Await at [facility] zone b until an inpatient becomes availble and take al prescribed medications Person reported agreement to plan: No Reports/communication Outcome discussed with: ED/Personnel
[2025-01-15] MEDS: Melatonin 3 MG TAB 6 MG PO (19:17)
--- NOTE | 2025-01-15 21:33 | NUR.NOTE ---
Late entry at 1930, auto parts clerk offered to do EKG, patient stated he would allow us to do it on him tomorrow which is Friday01/16/25.
--- NOTE | 2025-01-16 06:43 | W.EDPROG ---
Date of service: 01/16/25 Time of Service: 06:44 Medical Decision Making Patient remains in ED pending involuntary admission with second certification completed by the state. Patient still refusing EKG. Probably should consider holding methadone until EKG can be obtained to confirm normal QT interval. Otherwise there have been no issues on the overnight shift. Quality:SDOH Health Related Social Needs: Health related social needs problems related to housing/economic circumstances (Z59.89), problems with daily activities (Z73.9), feeling lonely/isolated (Z60.8) Discharge Plan Disposition Condition: Stable Discharge Details Chief Complaint: PsychEval Clinical Impression: Psychosis, Delusions, Paranoid Primary Care Provider: Sophia Kelsey ED Provider: Jamie Haile [place] and New Rx's Prescriptions: No Action lisdexamfetamine [Vyvanse] 40 mg capsule 50 mg PO DAILY Patient Comments: pt states dose is 60mg 02/07/24 triamcinolone acetonide 0.025 % cream 1 applic topical DAILY PRN (Reason: rash) Qty: 15 0RF Rx Instructions: apply 0.25gm to face daily prn seborrhea methadone 10 mg/5 mL solution 155 mg PO DAILY clonidine HCl 0.2 mg tablet 0.2 mg PO BID PRN Rx Instructions: Last RX'd by Patricia [place] October 2022 melatonin 3 mg capsule 6 mg PO HS PRN Rx Instructions: Last RX'd by [place]. gabapentin 300 mg capsule 300 mg PO TID Rx Instructions: Last RX'd by [place] [facility] on 11/19/2022. -hb testosterone cypionate 200 mg/mL oil 200 mg IM Q2W Qty: 1 5RF Patient Comments: per [facility] was last filled on 03/05, pt states he hasn't taken yet, last picked up 02/10, 01/20, 01/06, 12/01 lisinopril 10 mg tablet 10 mg PO DAILY Qty: 90 3RF quetiapine [Seroquel XR] 300 mg tablet extended release 24 hr 300 mg PO DAILY quetiapine [Seroquel XR] 300 mg tablet extended release 24 hr 600 mg PO QHS sulfasalazine 500 mg tablet 1 g PO BID Rx Instructions: give with food (meal/snack) venlafaxine 150 mg capsule,extended release 24hr 300 mg PO DAILY
[2025-01-16 07:14] VITALS: BP 120/87; PULSE 117; RESP 16; TEMP 36.8; O2SAT 99
[2025-01-16] MEDS: Gabapentin 300 MG CAP PO ×3 (11:23→20:52)
[2025-01-16] MEDS: Methadone Liquid 10 MG/ML 155 MG PO (11:23)
[2025-01-16] MEDS: Lisinopril 10 MG TAB PO (11:23)
[2025-01-16] MEDS: Venlafaxine 150 MG CAPCR 300 MG PO (11:24)
[2025-01-16] MEDS: cloNIDine 0.1 MG TAB 0.2 MG PO ×2 (12:10→16:12)
[2025-01-16] MEDS: Nicotine 2 MG GUM CH (12:54)
[2025-01-16] MEDS: hydrOXYzine HCL 25 MG TAB 50 MG PO (13:41)
--- NOTE | 2025-01-16 14:15 | PDOC.MHPN2 ---
Date of service: 01/16/25 Time of Service: 10:15 Mental Health Emergency Note Release [facility] release signed:: Yes Reason for Visit The client is well known to [facility] [facility] [employer] [facility] program. Per chart review the client has been cancelling and no showing numerous appointments. The client is currently at [facility] ED on involuntary status after a MH warrant was written on 01/13/25. The clients 2nd certification passed yesterday 01/15. This inspector automatic typewriter meets with the client in person at [facility] ED for his first daily assessment. In the last 2 weeks has the pt presented for ES prior to today?: No Impression Per ESC Yue's note from 01/14: The client is a 43-year-old, single, male who receives services through the [facility] [employer] [employer] [facility] program with [facility]. He lives with his parents in [facility]. The client denied SI and HI today but by hx has had SI with plan and intent and done self-harming things (cutting, jumping into river when he cannot swim). He could not attend to any screening tools today due to his level of hallucinations. All underrepresented categories were honored in this assessment. He was last hospitalized per his report last year at [facility] Today when this inspector automatic typewriter entered the clients room he states that he does not wish to talk to this inspector automatic typewriter. When this inspector automatic typewriter asks if she can just ask him a couple of questions he agrees. The client states: I am being treated inhumane, they are refusing to give me my medications. This inspector automatic typewriter explains that staff report that they need an EKG prior to administering his medications to check his levels. The client states: I can't get an EKG because I feel... The client would not finish his sentence. The client reports that the night staff made this up overnight and he is not happy about it. The client is also refusing to take the medications that he is allowed to have currently without the EKG. The client reports that he is not eating or drinking as he is detoxing and when he detoxes he does not eat. The client is continuing to deny SI/HI, however reports that: the voices are worse than ever. The client does not wish to engage with this inspector automatic typewriter any longer. Plan/Disposition Recommended Disposition: Hospitalization No. Plan: The client will remain at [facility] ED on involuntary status pending acceptance to an inpatient facility. The client will be re-assessed by [facility] 2x daily until placement is secured. This inspector automatic typewriter outreached to [facility] and spoke with [facility] who reports that they have some scheduled discharges for tomorrow and are hoping to be able to accept him. Person reported agreement to plan: No Reports/communication Outcome discussed with: ED/Personnel (Verbal passover given to ED provider Dr. newton during huddle. )
--- NOTE | 2025-01-16 15:46 | W.EDPROG ---
Date of service: 01/16/25 Time of Service: 15:47 Medical Decision Making Patient stable throughout the shift. There was concern for potential QT prolongation with the patient's medications. Patient refused EKG for quite some time, medications were held out of concern for negative affect with his QT. Eventually the patient did allow EKG to be done, QT is in the 300s, medication safe for administration. Patient otherwise had no complaints throughout shift. Pending placement. Quality:SDOH Health Related Social Needs: Health related social needs problems related to housing/economic circumstances (Z59.89), problems with daily activities (Z73.9), feeling lonely/isolated (Z60.8) Discharge Plan Disposition Condition: Stable Discharge Details Chief Complaint: PsychEval Clinical Impression: Psychosis, Delusions, Paranoid Primary Care Provider: Sophia Kelsey ED Provider: Win Gleason Home Meds and New Rx's Prescriptions: No Action lisdexamfetamine [Vyvanse] 40 mg capsule 50 mg PO DAILY Patient Comments: pt states dose is 60mg 02/07/24 triamcinolone acetonide 0.025 % cream 1 applic topical DAILY PRN (Reason: rash) Qty: 15 0RF Rx Instructions: apply 0.25gm to face daily prn seborrhea methadone 10 mg/5 mL solution 155 mg PO DAILY clonidine HCl 0.2 mg tablet 0.2 mg PO BID PRN Rx Instructions: Last RX'd by Patricia [place] October 2022 melatonin 3 mg capsule 6 mg PO HS PRN Rx Instructions: [facility] [place]. gabapentin 300 mg capsule 300 mg PO TID Rx Instructions: [facility] [place] [facility]/2022. -hb testosterone cypionate 200 mg/mL oil 200 mg IM Q2W Qty: 1 5RF Patient Comments: per [facility] was last filled on 03/05, pt states he hasn't taken yet, last picked up 02/10, 01/20, 01/06, 12/01 lisinopril 10 mg tablet 10 mg PO DAILY Qty: 90 3RF quetiapine [Seroquel XR] 300 mg tablet extended release 24 hr 300 mg PO DAILY quetiapine [Seroquel XR] 300 mg tablet extended release 24 hr 600 mg PO QHS sulfasalazine 500 mg tablet 1 g PO BID Rx Instructions: give with food (meal/snack) venlafaxine 150 mg capsule,extended release 24hr 300 mg PO DAILY
--- NOTE | 2025-01-16 16:11 | W.EDPROG ---
Date of service: 01/16/25 Time of Service: 16:11 Medical Decision Making Patient voluntary status for paranoia, no new acute complaints. Will continue to monitor until safe disposition Quality:SDOH Health Related Social Needs: Health related social needs problems related to housing/economic circumstances (Z59.89), problems with daily activities (Z73.9), feeling lonely/isolated (Z60.8) Discharge Plan Disposition Condition: Stable Discharge Details Chief Complaint: PsychEval Clinical Impression: Psychosis, Delusions, Paranoid Primary Care Provider: Sophia Kelsey ED Provider: Torrey Tse Home Meds and New Rx's Prescriptions: No Action lisdexamfetamine [Vyvanse] 40 mg capsule 50 mg PO DAILY Patient Comments: pt states dose is 60mg 02/07/24 triamcinolone acetonide 0.025 % cream 1 applic topical DAILY PRN (Reason: rash) Qty: 15 0RF Rx Instructions: apply 0.25gm to face daily prn seborrhea methadone 10 mg/5 mL solution 155 mg PO DAILY clonidine HCl 0.2 mg tablet 0.2 mg PO BID PRN Rx Instructions: [facility] melatonin 3 mg capsule 6 mg PO HS PRN Rx Instructions: Last RX'd by [facility]. gabapentin 300 mg capsule 300 mg PO TID Rx Instructions: Last RX'd by [facility] on 11/19/2022. -hb testosterone cypionate 200 mg/mL oil 200 mg IM Q2W Qty: 1 5RF Patient Comments: per [facility] was last filled on 03/05, pt states he hasn't taken yet, last picked up 02/10, 01/20, 01/06, 12/01 lisinopril 10 mg tablet 10 mg PO DAILY Qty: 90 3RF quetiapine [Seroquel XR] 300 mg tablet extended release 24 hr 300 mg PO DAILY quetiapine [Seroquel XR] 300 mg tablet extended release 24 hr 600 mg PO QHS sulfasalazine 500 mg tablet 1 g PO BID Rx Instructions: give with food (meal/snack) venlafaxine 150 mg capsule,extended release 24hr 300 mg PO DAILY
--- NOTE | 2025-01-16 17:44 | CMSP_ITS ---
Date of service: 01/16/25 Time of Service: 17:45 Care Management Safety Plan Status Status: Involuntary Reason for Wait Reason for Wait: Inpatient Admission Safety Plan Safety Plan: INVOLUNTARY FOR INPATIENT PSYCHIATRIC STABILIZATION.? Patient is appropriate in all interactions since arriving at [facility]; Pt has demonstrated appropriate coping and communication skills, has articulated his or her needs and concerns and is fully engaged during staff interactions. Safety plan has been established with patient, and care team, to adhere to patient goals, identify restrictions based on behavioral status, address nutrition, and determine allowed personal belongings, tools for hygiene and personal care. Determine level of activity including ambulation, level of supervision, visitors, and determine privileges based on behaviors and level of engagement by pt. SAFETY PLAN: 1. Will remain on suicide precautions, in paper clothes 2. Will remain in Zone B under direct supervision of one-on-one staff at all times provided by [employer]; JAYDEN, CUSTOM MILLER manager orange. 3. May have paper cups, plates, finger foods as well as a cardboard spoon with which to eat meals. 4. Follow [facility] Management of the Admitted Behavioral Health Patient policy. 5. Shower available in Zone B without restriction. 6. Personal belongings-soft items permitted at RN discretion. 7. Visitors- at RN discretion. 8. Activities: soft cart items, [facility] tablets, approved per RN discretion. 9.? Bathroom available in Zone B without restriction. 10. Phone: limited to [facility] cordless phone at RN discretion. Due to INVOLUNTARY status, patient is being held at [facility] by the Department of Mental Health ([facility]) until 2nd certification by [facility] Psychiatrist can be performed (within 24 hours). Staff will provide de-escalation support (CPI) as needed. If patient wishes to leave [facility], staff will contact [facility] Crisis Screener ([phone]) and [facility] ([phone]) as soon as possible. In the event of elopement, notify [place] [employer] Police ([phone]). Patient is currently involuntarily at [facility]. [facility] Frontline Ignition Expert will continue seeking placement. Please contact the [facility] for any needed changes to Safety Plan. Safety plan has been provided to interdepartmental care team. Patient will be transported by head cook at time of discharge.
--- NOTE | 2025-01-16 17:44 | PDOC.CMSAFE ---
Date of service: 01/16/25 Time of Service: 17:45 Care Management Safety Plan Status Status: Involuntary Reason for Wait Reason for Wait: Inpatient Admission Safety Plan Safety Plan: INVOLUNTARY FOR INPATIENT PSYCHIATRIC STABILIZATION.? Patient is appropriate in all interactions since arriving at [facility]; Pt has demonstrated appropriate coping and communication skills, has articulated his or her needs and concerns and is fully engaged during staff interactions. Safety plan has been established with patient, and care team, to adhere to patient goals, identify restrictions based on behavioral status, address nutrition, and determine allowed personal belongings, tools for hygiene and personal care. Determine level of activity including ambulation, level of supervision, visitors, and determine privileges based on behaviors and level of engagement by pt. SAFETY PLAN: 1. Will remain on suicide precautions, in paper clothes 2. Will remain in Zone B under direct supervision of one-on-one staff at all times provided by [employer]; JAYDEN, CALL CENTER NURSE nursing program director. 3. May have paper cups, plates, finger foods as well as a cardboard spoon with which to eat meals. 4. Follow [facility] Management of the Admitted Behavioral Health Patient policy. 5. Shower available in Zone B without restriction. 6. Personal belongings-soft items permitted at RN discretion. 7. Visitors- at RN discretion. 8. Activities: soft cart items, [facility] tablets, approved per RN discretion. 9.? Bathroom available in Zone B without restriction. 10. Phone: limited to [facility] cordless phone at RN discretion. Due to INVOLUNTARY status, patient is being held at [facility] by the Department of Mental Health ([facility]) until 2nd certification by [facility] Psychiatrist can be performed (within 24 hours). Staff will provide de-escalation support (CPI) as needed. If patient wishes to leave [facility], staff will contact [facility] Crisis Screener ([phone]) and Certified Ethical Hacker ([phone]) as soon as possible. In the event of elopement, notify [place] [employer] Police ([phone]). Patient is currently involuntarily at [facility]. [facility] Frontline Prestidigitator will continue seeking placement. Please contact the Certified Ethical Hacker for any needed changes to Safety Plan. Safety plan has been provided to interdepartmental care team. Patient will be transported by disbursing agent at time of discharge.
--- NOTE | 2025-01-16 17:45 | PDOC.CMPRO ---
Date of service: 01/16/25 Time of Service: 17:45 Care Management Progress Note Progress Note Text Progress Note Text: CM huddled with staff regarding Dangelo's plan of care. Per RN, Dangelo continued to refuse an EKG earlier today, but after speaking with MD, he agreed to the EKG, and his medications were resumed. Per [facility], Dangelo may have a level one bed at [facility] tomorrow; staff will not be discussing this with Dangelo until a bed is confirmed. Dangelo is involuntary, awaiting placement for inpatient psychiatric treatment. Referrals were sent, safety plan in place. CM will continue to follow. Social Determinants of Health Screening Social Determinants of Health last assessed: 01/16/25 Will the Patient Participate in the Screening?: Yes Do you worry about having a steady place to live?: no Problems where you live: no known problems In the past 12 months, have you had to go without electric, gas, oil or water in your home?: no Have you or anyone in your house had to go without enough food to eat?: no Has lack of transportation kept you from medical appointments or from doing things needed for daily living?: no Has anyone in your life made you feel unsafe or unsupported?: no How hard is it for you to pay for the very basics like food, housing, medical care, and heating? Would you say it is:: Very hard Do you want help finding or keeping work or a job?: I do not need or want help If for any reason you need help with day-to-day activities such as bathing, preparing meals, shopping, managing finances, etc., do you get the help you need?: I could use a little more help How often do you feel lonely or isolated from those around you?: Sometimes Do you speak a language other than Kazakh at home?: No Does the patient want assistance with any of the above?: No Health Related Social Needs Health related social needs: problems related to housing/economic circumstances (Z59.89), problems with daily activities (Z73.9) and feeling lonely/isolated (Z60.8)
--- NOTE | 2025-01-16 18:22 | PDOC.MHPN2 ---
Date of service: 01/16/25 Time of Service: 16:45 Mental Health Emergency Note Release [facility] release signed:: Yes Reason for Visit The client is known to [facility] and currently receives services through the adult outpatient program, however per chart review has only attended two appointment since being discharged from [facility] in October of 2024. All of the other appointments the client has cancelled or no showed. 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 Yesterday the client presented to [facility] ED with disorganized behavior and was endorsing suicidal ideations. The client was initially seeking voluntary inpatient treatment until this morning when this field underwriter completed re-assessment and she was making homicidal statements and demanding to leave. This field underwriter completed an EE. This assessment is the clients 2nd certification completed by psychiatrist at [facility]. Dr. Carbajal. In the last 2 weeks has the pt presented for ES prior to today?: No Impression The client is a 42 y/o single female that resides in [facility]. The client currently receives SSDI. Screening tools are not completed due to this being the clients 2nd certification. All under represented categories are honored. The client is sitting up in hospital bed dressed in proper paper hospital attire when this field underwriter and Dr. Carbajal arrives via zoom. The client is cooperative with the assessment stating that she came to the hospital because she was feeling distraught and looking for help. The client reports that she is still continuing to endorse suicidal ideations, however reports that they have tamed down some as she is in a safe environment. The client denies saying homicidal statements stating: what I said is how good are you at swimming since your name is [place]. The client reports prior to coming to the hospital she was having difficulty accessing food and had not eaten or slept in a week. The client reports that she is wanting to stay at the hospital and seek voluntary inpatient treatment. Plan/Disposition Recommended Disposition: Hospitalization No. Plan: The client will remain at [facility] ED on voluntary status. If at anytime within the next day the client wishes to leave [facility] needs to be notified. The client will receive daily assessments until placement is secured. Dr. Carbajal (psychiatrist from [facility]) Per this writers conversation with Dr. Carbajal the client meets criteria for the 2nd certification to pass, however since she is willing to stay at the hospital and seek voluntary treatment he cannot legally hold her. Dr. Carbajal reports that if at any time during the night tonight or tomorrow morning the client reports that she does not want to stay or becomes verbally aggressive or makes HI statements to staff then to call [facility] and he will certify the paperwork. Person reported agreement to plan: Yes Reports/communication Outcome discussed with: ED/Personnel (Verbal given to zone b staff. )
[2025-01-16] MEDS: Melatonin 3 MG TAB 6 MG PO (20:52)
--- NOTE | 2025-01-17 06:55 | W.EDPROG ---
Date of service: 01/17/25 Time of Service: 06:55 Medical Decision Making In brief, this is a 44-year-old male patient boarding in our emergency department with paranoia and delusions, hallucinations. At the time that I took over his care he was medically cleared, and was on an EE hold awaiting final placement. During my shift, the EE was revoked by psychiatry due to a lack of demonstrated danger to self. The patient is willing to voluntarily stay at this facility as long as he is not placed at [facility], has been taking all of his medications as prescribed, and was signed out to the oncoming provider prior to final disposition. He did not require any acute interventions for restraint or sedation. Becca Salazar MD Medical Records Medical records reviewed: Yes I reviewed the patient's medical records. Lab Data Lab results reviewed: Yes I reviewed the patient's lab results. Quality:SDOH Health Related Social Needs: Health related social needs problems related to housing/economic circumstances (Z59.89), problems with daily activities (Z73.9), feeling lonely/isolated (Z60.8) Discharge Plan Disposition Condition: Stable Discharge Details Chief Complaint: PsychEval Clinical Impression: Psychosis, Delusions, Paranoid Primary Care Provider: Sophia Kelsey ED Provider: Becca Salazar Home Meds and New Rx's Prescriptions: No Action lisdexamfetamine [Vyvanse] 40 mg capsule 50 mg PO DAILY Patient Comments: pt states dose is 60mg 02/07/24 triamcinolone acetonide 0.025 % cream 1 applic topical DAILY PRN (Reason: rash) Qty: 15 0RF Rx Instructions: apply 0.25gm to face daily prn seborrhea methadone 10 mg/5 mL solution 155 mg PO DAILY clonidine HCl 0.2 mg tablet 0.2 mg PO BID PRN Rx Instructions: [facility] [place] [facility] melatonin 3 mg capsule 6 mg PO HS PRN Rx Instructions: [facility] gab[facility] 300 mg capsule 300 mg PO TID Rx Instructions: [facility]. -hb testosterone cypionate 200 mg/mL oil 200 mg IM Q2W Qty: 1 5RF Patient Comments: per [facility] was last filled on 03/05, pt states he hasn't taken yet, last picked up 02/10, 01/20, 01/06, 12/01 lisinopril 10 mg tablet 10 mg PO DAILY Qty: 90 3RF quetiapine [Seroquel XR] 300 mg tablet extended release 24 hr 300 mg PO DAILY quetiapine [Seroquel XR] 300 mg tablet extended release 24 hr 600 mg PO QHS sulfasalazine 500 mg tablet 1 g PO BID Rx Instructions: give with food (meal/snack) venlafaxine 150 mg capsule,extended release 24hr 300 mg PO DAILY
[2025-01-17] MEDS: Methadone Liquid 10 MG/ML 155 MG PO (07:17)
[2025-01-17 07:22] VITALS: BP 126/85; PULSE 103; RESP 19; TEMP 37; O2SAT 96
[2025-01-17] MEDS: Venlafaxine 150 MG CAPCR 300 MG PO (07:59)
[2025-01-17] MEDS: Lisinopril 10 MG TAB PO (07:59)
[2025-01-17] MEDS: Gabapentin 300 MG CAP PO ×3 (07:59→19:39)
[2025-01-17] MEDS: cloNIDine 0.1 MG TAB 0.2 MG PO ×2 (09:43→18:30)
[2025-01-17] MEDS: hydrOXYzine HCL 25 MG TAB 50 MG PO (10:58)
--- NOTE | 2025-01-17 12:57 | PDOC.MHPN2 ---
Date of service: 01/17/25 Time of Service: 13:00 Mental Health Emergency Note Release [facility] release signed:: Yes Reason for Visit The client is well known to [facility] RIGHT OF WAY AGENT program. He was last seen on 01.11.25 by the ES team and has been noncompliant with his appointments. He has a new director case management on the AO team, Erik who is also a Veterans director case management so when the client is feeling better, he would benefit from his knowledge of VA benefits. He was last hospitalized about a year ago at [facility] and prior at numerous times. This is a reassessment and is completed face to face at bedside. In the last 2 weeks has the pt presented for ES prior to today?: No Impression The client is a 43-year-old, single, male who receives services through the RIGHT OF WAY AGENT program with [facility]. He lives with his parents in [facility]. The client denied SI and HI today but by hx has had SI with plan and intent and done self-harming things (cutting, jumping into river when he cannot swim). He could not attend to any screening tools today due to his level of hallucinations. All underrepresented categories were honored in this assessment. He was last hospitalized per his report last year at [facility]. THe cleint is observed standing in the cao wearing a blanket around his face like a mask. He at one point goes to the bathroom and then re-wraps the blanket around his head and face. He has his hair half pulled up in a bun and was observed eating a yogurt. He is anxiously digging his nails until he is reassured we will not refer him to [facility] as he reports a traumatic experience there but did not share details. The client is willing to remain voluntary until placement for now as long as [facility] is not an option. Although a bit latter-day for ES to do he has been struggling for so long that we will do what we need to to get that need net. The client responds well to positive affirmations and encouragement. Plan/Disposition Recommended Disposition: Hospitalization facilities contacted. Plan: The cleint will remain at [facility] voluntarily for placement. I he wants to leave there is not enough at this time to hold him involuntarily however, [facility] should be contacted to do a safety plan if he refuses to stay. Person reported agreement to plan: Yes Reports/communication Outcome discussed with: ED/Personnel
--- NOTE | 2025-01-17 13:01 | CMSP_ITS ---
Date of service: 01/17/25 Time of Service: 13:01 Care Management Safety Plan Status Status: Voluntary Reason for Wait Reason for Wait: Inpatient Admission Safety Plan Safety Plan: VOLUNTARY FOR INPATIENT PSYCHIATRIC STABILIZATION.? Patient is appropriate in all interactions since arriving at [facility]; Pt has demonstrated appropriate coping and communication skills, has articulated his or her needs and concerns and is fully engaged during staff interactions. Safety plan has been established with patient, and care team, to adhere to patient goals, identify restrictions based on behavioral status, address nutrition, and determine allowed personal belongings, tools for hygiene and personal care. Determine level of activity including ambulation, level of superv ision, visitors, and determine privileges based on behaviors and level of engagement by pt. VOLUNTARY SAFETY PLAN: 1. Will remain on suicide precautions, in paper clothes 2. Will remain in Zone B under direct supervision of one-on-one staff at all times provided by [employer]; JAYDEN, BRIDGE OPERATOR sample color maker. 3. May have paper cups, plates, finger foods as well as a cardboard spoon with which to eat meals. 4. Follow [facility] Management of the Admitted Behavioral Health Patient policy. 5. Shower available in Zone B without restriction. 6. Personal belongings-soft items permitted at RN discretion. 7. Visitors- parents, at RN discretion. [facility] keycase assembler, Erik Bullock may visit also. 8. Activities: soft cart items, hospital tablets (Netflix/Elizabeth+/music) approved per RN discretion. 9.? Bathroom available in Zone B without restriction. 10. Phone: limited to [facility] cordless phone at RN discretion. Due to VOLUNTARY status, if patient wishes to leave [facility], staff will contact [facility] Crisis Screener ([phone]) and Puncher And Fastener ([phone]) as soon as possible. In the event of elopement, notify [place] [employer] ([phone]). Patient is currently voluntarily at [facility] and seeking inpatient admission when a bed becomes available. [facility] Frontline Freelance Writer will continue seeking placement. Please contact the Puncher And Fastener ([phone]) and [facility] Freelance Writer ([phone]) for any needed changes in the Safety Plan. Safety plan has been provided to interdepartmental care team.
--- NOTE | 2025-01-17 13:01 | PDOC.CMSAFE ---
Date of service: 01/17/25 Time of Service: 13:01 Care Management Safety Plan Status Status: Voluntary Reason for Wait Reason for Wait: Inpatient Admission Safety Plan Safety Plan: VOLUNTARY FOR INPATIENT PSYCHIATRIC STABILIZATION.? Patient is appropriate in all interactions since arriving at [facility]; Pt has demonstrated appropriate coping and communication skills, has articulated his or her needs and concerns and is fully engaged during staff interactions. Safety plan has been established with patient, and care team, to adhere to patient goals, identify restrictions based on behavioral status, address nutrition, and determine allowed personal belongings, tools for hygiene and personal care. Determine level of activity including ambulation, level of supervision, visitors, and determine privileges based on behaviors and level of engagement by pt. VOLUNTARY SAFETY PLAN: 1. Will remain on suicide precautions, in paper clothes 2. Will remain in Zone B under direct supervision of one-on-one staff at all times provided by [employer]; JAYDEN, PREASSEMBLER PRINTED CIRCUIT BOARD rate supervisor. 3. May have paper cups, plates, finger foods as well as a cardboard spoon with which to eat meals. 4. Follow [facility] Management of the Admitted Behavioral Health Patient policy. 5. Shower available in Zone B without restriction. 6. Personal belongings-soft items permitted at RN discretion. 7. Visitors- parents, at RN discretion. [facility] disease case manager rn, Erik Bullock may visit also. 8. Activities: soft cart items, hospital tablets (Netflix/[place]+/music) approved per RN discretion. 9.? Bathroom available in Zone B without restriction. 10. Phone: limited to [facility] cordless phone at RN discretion. Due to VOLUNTARY status, if patient wishes to leave [facility], staff will contact [facility] Crisis Screener ([phone]) and Tank Tender ([phone]) as soon as possible. In the event of elopement, notify [place] [employer] ([phone]). Patient is currently voluntarily at [facility] and seeking inpatient admission when a bed becomes available. [facility] Frontline Marble Polisher Hand will continue seeking placement. Please contact the Tank Tender ([phone]) and [facility] Marble Polisher Hand ([phone]) for any needed changes in the Safety Plan. Safety plan has been provided to interdepartmental care team.
--- NOTE | 2025-01-17 13:45 | CMPROGNOTE_ITS ---
Date of service: 01/17/25 Time of Service: 13:45 Care Management Progress Note Progress Note Text Progress Note Text: CM huddled with ED and [facility] staff regarding Dangelo's plan of care. Per RN, Dangelo has been appropriate in interactions. He is reporting today that he does not want to go to [facility], but he is willing to go to another facility for psychiatric treatment. Per [facility], Dangelo was being held involuntarily, which was upheld by a [facility] psychi atrist, however the second certification was dismissed by the legal team at [facility]. Per report, Dangelo has agreed to remain at [facility] voluntarily, as long as [facility]; [facility] is in support of this, as he is voluntary and everyone is in support of him getting treatment. Dangelo is voluntary, seeking inpatient psychiatric treatment. Referrals have been sent to all facilities. Safety plan in place; CM will continue to follow. Social Determinants of Health Screening Social Determinants of Health last assessed: 01/17/25 Will the Patient Participate in the Screening?: Yes Do you worry about having a steady place to live?: no Problems where you live: no known problems In the past 12 months, have you had to go without electric, gas, oil or water in your home?: no Have you or anyone in your house had to go without enough food to eat?: no Has lack of transportation kept you from medical appointments or from doing things needed for daily living?: no Has anyone in your life made you feel unsafe or unsupported?: no How hard is it for you to pay for the very basics like food, housing, medical care, and heating? Would you say it is:: Very hard Do you want help finding or keeping work or a job?: I do not need or want help If for any reason you need help with day-to-day activities such as bathing, preparing meals, shopping, managing finances, etc., do you get the help you need?: I could use a little more help How often do you feel lonely or isolated from those around you?: Sometimes Do you speak a language other than Tajik at home?: No Does the patient want assistance with any of the above?: No Health Related Social Needs Health related social needs: problems related to housing/economic circumstances (Z59.89), problems with daily activities (Z73.9) and feeling lonely/isolated (Z60.8)
--- NOTE | 2025-01-17 16:44 | ED.PROG_ITS ---
Date of service: 01/17/25 Time of Service: 16:44 Medical Decision Making Patient now on voluntary status after the patient was removed by psychiatry, no issues reported on prior shift and currently without acute complaints. Will continue to monitor until safe dispo found Quality:SDOH Health Related Social Needs: Health related social needs problems related to housin g/economic circumstances (Z59.89), problems with daily activities (Z73.9), feeling lonely/isolated (Z60.8) Discharge Plan Disposition Condition: Stable Discharge Details Chief Complaint: PsychEval Clinical Impression: Psychosis, Delusions, Paranoid Primary Care Provider: Sophia Kelsey ED Provider: Torrey Tse Home Meds and New Rx's Prescriptions: No Action lisdexamfetamine [Vyvanse] 40 mg capsule 50 mg PO DAILY Patient Comments: pt states dose is 60mg 02/07/24 triamcinolone acetonide 0.025 % cream 1 applic topical DAILY PRN (Reason: rash) Qty: 15 0RF Rx Instructions: apply 0.25gm to face daily prn seborrhea methadone 10 mg/5 mL solution 155 mg PO DAILY clonidine HCl 0.2 mg tablet 0.2 mg PO BID PRN Rx Instructions: [facility] melatonin 3 mg capsule 6 mg PO HS PRN Rx Instructions: Last RX'd by [facility]. gabapentin 300 mg capsule 300 mg PO TID Rx Instructions: Last RX'd by [facility] on 11/19/2022. -hb testosterone cypionate 200 mg/mL oil 200 mg IM Q2W Qty: 1 5RF Patient Comments: per [facility] was last filled on 03/05, pt states he hasn't taken yet, last picked up 02/10, 01/20, 01/06, 12/01 lisinopril 10 mg tablet 10 mg PO DAILY Qty: 90 3RF quetiapine [Seroquel XR] 300 mg tablet extended release 24 hr 300 mg PO DAILY quetiapine [Seroquel XR] 300 mg tablet extended release 24 hr 600 mg PO QHS sulfasalazine 500 mg tablet 1 g PO BID Rx Instructions: give with food (meal/snack) venlafaxine 150 mg capsule,extended release 24hr 300 mg PO DAILY
[2025-01-17] MEDS: Melatonin 3 MG TAB 6 MG PO (19:39)
--- NOTE | 2025-01-18 04:35 | W.EDPROG ---
Date of service: 01/18/25 Time of Service: 04:35 Medical Decision Making Patient requesting to be discharged at this time. He was taken off involuntary admission by the [facility] psychiatrist yesterday. He was staying voluntarily for admission as long as he would not be placed at [facility]. He has decided at this point that he would like to go home. He is still having hallucinations. He has been taking his medications. Will contact [facility] at this time so that they may arrange for follow-up and safety planning. Patient has been encouraged to remain but wishes for discharge. Given his clearance by the [facility] there is no reason to hold him against his will and he is discharged per his request. Quality:[facility] Health Related Social Needs: Health related social needs problems related to housing/economic circumstances (Z59.89), problems with daily activities (Z73.9), feeling lonely/isolated (Z60.8) Discharge Plan Disposition Patient Disposition: Home Condition: Stable Discharge Details Clinical Impression: Psychosis, Delusions, Paranoid Primary Care Provider: Sophia Kelsey ED Provider: Jamie Haile [facility] and New Rx's Prescriptions: Continued triamcinolone acetonide 0.025 % cream 1 applic topical DAILY PRN (Reason: rash) Qty: 15 0RF Rx Instructions: apply 0.25gm to face daily prn seborrhea methadone 10 mg/5 mL solution 155 mg PO DAILY clonidine HCl 0.2 mg tablet 0.2 mg PO BID PRN Rx Instructions: Last RX'd by [facility] October 2022 melatonin 3 mg capsule 6 mg PO HS PRN Rx Instructions: Last RX'd by [facility]. gabapentin 300 mg capsule 300 mg PO TID Rx Instructions: Last RX'd by [facility] on 11/19/2022. -hb testosterone cypionate 200 mg/mL oil 200 mg IM Q2W Qty: 1 5RF Patient Comments: per [facility] was last filled on 03/05, pt states he hasn't taken yet, last picked up 02/10, 01/20, 01/06, 12/01 lisinopril 10 mg tablet 10 mg PO DAILY Qty: 90 3RF quetiapine [Seroquel XR] 300 mg tablet extended release 24 hr 300 mg PO DAILY quetiapine [Seroquel XR] 300 mg tablet extended release 24 hr 600 mg PO QHS venlafaxine 150 mg capsule,extended release 24hr 300 mg PO DAILY Discontinued lisdexamfetamine [Vyvanse] 40 mg capsule 50 mg PO DAILY Patient Comments: pt states dose is 60mg 02/07/24 sulfasalazine 500 mg tablet 1 g PO BID Rx Instructions: give with food (meal/snack) Discharge Instructions Additional Instructions: You are encouraged to contact and follow-up with [facility], continue your medications that you were on while here in the ED. You may return at any time if you feel unsafe, change your mind regarding voluntary admission, other concerns. Referrals: [facility] [Provider Group]
== END 2025-01-18 05:48 | disposition home or self-care (01) ==
PROVIDERS: Emergency Provider Emergency Medicine; PCP Family Medicine
DX: F29 Unspecified psychosis not due to a substance or known physiological condition (principal); F22 Delusional disorders; Z59.89 Other problems related to housing and economic circumstances; Z73.9 Problem related to life management difficulty, unspecified; Z60.8 Other problems related to social environment
CPT/HCPCS: 00123; 36415; 80053; 80307; 93005; 96127; 99285; H0046; 80320; 80329; 85025; 93010; J3490